=== PATIENT | female | born 1945 | race Caucasian/White ===

== ENCOUNTER → 2017-07-15 10:10 | Outpatient (CLI) | payer MEDICARE, SELFPAY ==
[2017-07-15 11:54] LABS: Absolute Lymphocyte Count 1.48 X10^3/ul (0.83-4.51); Basophil# 0.03 X10^3/uL; Basophil% 0.8 % (0-1); Eosinophil# 0.06 X10^3/uL; Eosinophils% 1.5 % (0-5); Hematocrit 43.7 % (37-47); Hemoglobin 13.4 g/dl (12.0-15.0); Lymphocyte # 1.48 X10^3/ul (4.0); Mean Corp Hgb Conc 30.7 g/gl (32-36); Mean Corpuscular Hgb 30.7 pg (27.0-32.0); Mean Platelet Vol. 10.4 fl (6.2-12.0); Monocyte# 0.29 X10^3/uL; Monocyte% 7.5 % (0-10); Neutrophil # 2.02 X10^3/uL (2.7-7.7); Neutrophil % 51.9 % (47-70); Platelet Count 241 K/mm3 (150-450); RBC Distribution Width CV 15.4 % (11.6-14.6); RBC Distribution Width SD 56.1 fl (35.1-43.9); Red Blood Count 4.37 M/mm3 (4.2-5.4); White Blood Count 3.9 K/mm3 (4.4-11.0)
[2017-07-15 11:57] LABS: POSITIVE COUNT NO; POSITIVE DIFFERENTIAL NO; POSITIVE MORPHOLOGY NO
[2017-07-15 12:16] LABS: ALB/GLOB Ratio 0.9 RATIO (0.9-2.4); AST(SGOT) 18 U/L (15-37); Alanine Aminotransfer ALT/SGPT 22 U/L (13-56); Albumin, Serum 3.2 g/dL (3.2-5.0); Alkaline Phosphatase 74 U/L (45-117); Anion Gap 7 (5-15); BUN 10 mg/dL (7-18); BUN/Creat Ratio 15.1 RATIO (10-20); Calcium,Total 8.1 mg/dL (8.5-10.1); Chloride 104 mmol/L (98-107); Creatinine, Serum 0.66 mg/dL (0.55-1.02); EST Glomerular Filtration Rate 94 mL/min (>60); Est Glom Filt Rate - Afr Amer 113 mL/min (>60); Globulin 3.5 g/dL (2.2-4.2); Glucose 76 mg/dL (74-106); Potassium 3.1 mmol/L (3.5-5.1); Protein, Total 6.7 g/dL (6.4-8.2); Sodium Level 142 mmol/L (136-145)
== END ==
PROVIDERS: Family Provider Family Medicine; PCP Family Medicine; Visit Provider Internal Medicine Rheumatology
DX: L40.59 Other psoriatic arthropathy (principal); L40.9 Psoriasis, unspecified; M16.0 Bilateral primary osteoarthritis of hip; M21.40 Flat foot [pes planus] (acquired), unspecified foot; M47.897 Other spondylosis, lumbosacral region; Z79.899 Other long term (current) drug therapy
CPT/HCPCS: 36415; 80053; 85025

== ENCOUNTER → 2017-10-09 12:43 | Outpatient (CLI) | payer MEDICARE, SELFPAY ==
[2017-10-09 14:25] LABS: Absolute Lymphocyte Count 1.15 X10^3/ul (0.83-4.51); Absolute Neutrophil Count 2.2 X10^3/uL (2.0-7.7); Basophil# 0.03 X10^3/uL; Basophil% 0.8 % (0-1); Eosinophil# 0.04 X10^3/uL; Eosinophils% 1.1 % (0-5); Hematocrit 43.7 % (37-47); Hemoglobin 13.8 g/dl (12.0-15.0); Lymphocyte # 1.15 X10^3/ul (4.0); Lymphocyte % 31.2 % (19-41); Mean Corp Hgb Conc 31.6 g/gl (32-36); Mean Corpuscular Hgb 30.8 pg (27.0-32.0); Mean Corpuscular Volume 97.5 fL (81-99); Mean Platelet Vol. 11.1 fl (6.2-12.0); Monocyte# 0.26 X10^3/uL; Neutrophil % 59.6 % (47-70); Platelet Count 248 K/mm3 (150-450); RBC Distribution Width CV 14.9 % (11.6-14.6); RBC Distribution Width SD 51.7 fl (35.1-43.9); Red Blood Count 4.48 M/mm3 (4.2-5.4); White Blood Count 3.7 K/mm3 (4.4-11.0)
[2017-10-09 14:30] LABS: POSITIVE COUNT NO; POSITIVE DIFFERENTIAL NO; POSITIVE MORPHOLOGY NO
[2017-10-09 14:43] LABS: ALB/GLOB Ratio 0.9 RATIO (0.9-2.4); AST(SGOT) 26 U/L (15-37); Alanine Aminotransfer ALT/SGPT 25 U/L (13-56); Albumin, Serum 3.5 g/dL (3.2-5.0); Alkaline Phosphatase 82 U/L (45-117); Anion Gap 9 (5-15); BUN 13 mg/dL (7-18); BUN/Creat Ratio 17.5 RATIO (10-20); Calcium,Total 8.4 mg/dL (8.5-10.1); Chloride 106 mmol/L (98-107); Creatinine, Serum 0.74 mg/dL (0.55-1.02); EST Glomerular Filtration Rate 82 mL/min (>60); Est Glom Filt Rate - Afr Amer 99 mL/min (>60); Globulin 3.8 g/dL (2.2-4.2); Glucose 122 mg/dL (74-106); Potassium 3.6 mmol/L (3.5-5.1); Protein, Total 7.3 g/dL (6.4-8.2); Sodium Level 143 mmol/L (136-145)
== END ==
PROVIDERS: Family Provider Family Medicine; PCP Family Medicine; Visit Provider Internal Medicine Rheumatology
DX: L40.59 Other psoriatic arthropathy (principal); L40.9 Psoriasis, unspecified; M16.0 Bilateral primary osteoarthritis of hip; M21.40 Flat foot [pes planus] (acquired), unspecified foot; M47.897 Other spondylosis, lumbosacral region; Z79.899 Other long term (current) drug therapy
CPT/HCPCS: 36415; 80053; 85025

== ENCOUNTER → 2017-11-18 10:27 | Outpatient (CLI) | payer MEDICARE, SELFPAY ==
[2017-11-18 12:20] LABS: BUN 16 mg/dL (7-18); Creatinine, Serum 0.86 mg/dL (0.55-1.02); EST Glomerular Filtration Rate 69 mL/min (>60); Est Glom Filt Rate - Afr Amer 83 mL/min (>60)
== END ==
PROVIDERS: Family Provider Family Medicine; PCP Family Medicine
DX: I60.7 Nontraumatic subarachnoid hemorrhage from unspecified intracranial artery (principal)
CPT/HCPCS: 36415; 82565; 84520

== ENCOUNTER → 2017-12-25 14:28 | Outpatient (CLI) | payer MEDICARE, SELFPAY ==
[2017-12-25 15:40] LABS: Absolute Lymphocyte Count 1.23 X10^3/ul (0.83-4.51); Absolute Neutrophil Count 2.1 X10^3/uL (2.0-7.7); Basophil# 0.03 X10^3/uL; Basophil% 0.8 % (0-1); Eosinophil# 0.04 X10^3/uL; Eosinophils% 1.1 % (0-5); Hematocrit 44.3 % (37-47); Hemoglobin 13.5 g/dl (12.0-15.0); Lymphocyte # 1.23 X10^3/ul (4.0); Lymphocyte % 33.3 % (19-41); Mean Corp Hgb Conc 30.5 g/gl (32-36); Mean Corpuscular Hgb 30.3 pg (27.0-32.0); Mean Corpuscular Volume 99.6 fL (81-99); Mean Platelet Vol. 10.7 fl (6.2-12.0); Monocyte# 0.31 X10^3/uL; Monocyte% 8.4 % (0-10); Neutrophil # 2.08 X10^3/uL (2.7-7.7); Neutrophil % 56.4 % (47-70); Platelet Count 245 K/mm3 (150-450); RBC Distribution Width CV 15.2 % (11.6-14.6); RBC Distribution Width SD 55.3 fl (35.1-43.9); Red Blood Count 4.45 M/mm3 (4.2-5.4); White Blood Count 3.7 K/mm3 (4.4-11.0)
[2017-12-25 15:47] LABS: POSITIVE COUNT NO; POSITIVE DIFFERENTIAL NO; POSITIVE MORPHOLOGY NO
[2017-12-25 15:48] LABS: AST(SGOT) 21 U/L (15-37); Alanine Aminotransfer ALT/SGPT 25 U/L (13-56); Albumin, Serum 3.4 g/dL (3.2-5.0); Alkaline Phosphatase 80 U/L (45-117); Anion Gap 8 (5-15); BUN 12 mg/dL (7-18); BUN/Creat Ratio 15.3 RATIO (10-20); Calcium,Total 8.8 mg/dL (8.5-10.1); Chloride 105 mmol/L (98-107); Creatinine, Serum 0.78 mg/dL (0.55-1.02); EST Glomerular Filtration Rate 77 mL/min (>60); Est Glom Filt Rate - Afr Amer 93 mL/min (>60); Globulin 3.5 g/dL (2.2-4.2); Glucose 102 mg/dL (74-106); Potassium 3.8 mmol/L (3.5-5.1); Protein, Total 6.9 g/dL (6.4-8.2); Sodium Level 144 mmol/L (136-145)
== END ==
PROVIDERS: Family Provider Family Medicine; PCP Family Medicine; Visit Provider Internal Medicine Rheumatology
DX: L40.59 Other psoriatic arthropathy (principal); Z79.899 Other long term (current) drug therapy; L40.9 Psoriasis, unspecified; M16.0 Bilateral primary osteoarthritis of hip; M21.40 Flat foot [pes planus] (acquired), unspecified foot; M47.897 Other spondylosis, lumbosacral region
CPT/HCPCS: 36415; 80053; 85025

== ENCOUNTER → 2018-03-24 14:00 | Outpatient (CLI) | payer MEDICARE, SELFPAY ==
[2018-03-24 15:49] LABS: Absolute Lymphocyte Count 1.27 X10^3/ul (0.83-4.51); Absolute Neutrophil Count 2.3 X10^3/uL (2.0-7.7); Basophil# 0.03 X10^3/uL; Basophil% 0.7 % (0-1); Eosinophil# 0.04 X10^3/uL; Hematocrit 44.4 % (37-47); Hemoglobin 13.8 g/dl (12.0-15.0); Lymphocyte # 1.27 X10^3/ul (4.0); Lymphocyte % 31.6 % (19-41); Mean Corp Hgb Conc 31.1 g/gl (32-36); Mean Corpuscular Hgb 30.8 pg (27.0-32.0); Mean Corpuscular Volume 99.1 fL (81-99); Mean Platelet Vol. 10.8 fl (6.2-12.0); Monocyte# 0.33 X10^3/uL; Monocyte% 8.2 % (0-10); Neutrophil # 2.34 X10^3/uL (2.7-7.7); Neutrophil % 58.3 % (47-70); Platelet Count 258 K/mm3 (150-450); RBC Distribution Width CV 14.8 % (11.6-14.6); RBC Distribution Width SD 53.1 fl (35.1-43.9); Red Blood Count 4.48 M/mm3 (4.2-5.4)
[2018-03-24 15:55] LABS: ALB/GLOB Ratio 0.9 RATIO (0.9-2.4); AST(SGOT) 19 U/L (15-37); Alanine Aminotransfer ALT/SGPT 24 U/L (13-56); Albumin, Serum 3.4 g/dL (3.2-5.0); Alkaline Phosphatase 90 U/L (45-117); Anion Gap 8 (5-15); BUN 14 mg/dL (7-18); BUN/Creat Ratio 17.7 RATIO (10-20); Calcium,Total 8.7 mg/dL (8.5-10.1); Chloride 104 mmol/L (98-107); Creatinine, Serum 0.79 mg/dL (0.55-1.02); EST Glomerular Filtration Rate 76 mL/min (>60); Est Glom Filt Rate - Afr Amer 92 mL/min (>60); Globulin 3.8 g/dL (2.2-4.2); Glucose 84 mg/dL (74-106); Potassium 3.6 mmol/L (3.5-5.1); Protein, Total 7.2 g/dL (6.4-8.2); Sodium Level 142 mmol/L (136-145)
[2018-03-24 16:16] LABS: POSITIVE COUNT NO; POSITIVE DIFFERENTIAL NO; POSITIVE MORPHOLOGY NO
== END ==
PROVIDERS: Family Provider Family Medicine; PCP Family Medicine; Referring Provider Internal Medicine Rheumatology; Visit Provider Internal Medicine Rheumatology
DX: L40.59 Other psoriatic arthropathy (principal); L40.9 Psoriasis, unspecified; M16.0 Bilateral primary osteoarthritis of hip; M21.40 Flat foot [pes planus] (acquired), unspecified foot; M47.897 Other spondylosis, lumbosacral region; Z79.899 Other long term (current) drug therapy
CPT/HCPCS: 36415; 80053; 85025

== ENCOUNTER → 2018-05-07 14:21 | Outpatient (CLI) | payer MEDICARE, SELFPAY ==
--- NOTE | 2018-05-07 14:26 | BI_ITS ---
MAMMOGRAPHY - BILATERAL SCREENING 3-D JINNY SYNTHESIS REASON FOR EXAM: Female, 72 years old. Bilateral Screening 3-D tomosynthesis PERTINENT HISTORY: History of benign left excisional biopsy over 10 years ago.. TECHNIQUE: 2-D mammograms and 3-D Jinny synthesis of the breast (s) were performed. CAD was performed. COMPARISON: March 22, 2016, March 09, 2015 FINDINGS: The breast composition is almost entirely fat. There are stable normal-appearing lymph nodes. Scattered benign calcifications are seen. No dense spiculated masses or suspicious microcalcifications are identified. No architectural distortion is identified. There is no skin thickening or retraction. There has been no significant change since the prior study. BI/SCREENING MAMM (CAD), BILAT IMPRESSION: No mammographic signs of malignancy. Routine yearly mammograms recommended. ASSESSMENT CATEGORY: BIRADS Category 2: Benign. A letter regarding these results will be sent to the patient by the facility within 30 days. FOLLOW UP RECOMMENDATION: Yearly follow up mammogram recommended. (A) Approximately 10% of breast cancers are not detected by mammography. A normal mammogram should not delay biopsy of a clinically suspicious abnormality. Electronically Signed: Shreyas Sousa MD at 10:53 EST , Service support ,
== END ==
PROVIDERS: Family Provider Family Medicine; PCP Family Medicine; Visit Provider Family Medicine
DX: Z12.31 Encounter for screening mammogram for malignant neoplasm of breast (principal)
CPT/HCPCS: 77063; 77067

== ENCOUNTER → 2018-06-23 13:22 | Outpatient (CLI) | payer MEDICARE, SELFPAY ==
[2018-06-23 15:58] LABS: Absolute Lymphocyte Count 1.13 X10^3/ul (0.83-4.51); Absolute Neutrophil Count 2.2 X10^3/uL (2.0-7.7); Basophil# 0.02 X10^3/uL; Basophil% 0.6 % (0-1); Eosinophil# 0.04 X10^3/uL; Eosinophils% 1.1 % (0-5); Hematocrit 43.4 % (37-47); Lymphocyte # 1.13 X10^3/ul (4.0); Lymphocyte % 31.3 % (19-41); Mean Corpuscular Hgb 30.2 pg (27.0-32.0); Mean Corpuscular Volume 100.9 fL (81-99); Monocyte# 0.27 X10^3/uL; Monocyte% 7.5 % (0-10); Neutrophil # 2.15 X10^3/uL (2.7-7.7); Neutrophil % 59.5 % (47-70); Platelet Count 251 K/mm3 (150-450); RBC Distribution Width CV 15.1 % (11.6-14.6); RBC Distribution Width SD 55.5 fl (35.1-43.9); White Blood Count 3.6 K/mm3 (4.4-11.0)
[2018-06-23 16:03] LABS: POSITIVE COUNT NO; POSITIVE DIFFERENTIAL NO; POSITIVE MORPHOLOGY NO
[2018-06-23 16:15] LABS: AST(SGOT) 16 U/L (15-37); Alanine Aminotransfer ALT/SGPT 25 U/L (13-56); Albumin, Serum 3.4 g/dL (3.2-5.0); Alkaline Phosphatase 86 U/L (45-117); Anion Gap 8 (5-15); BUN 16 mg/dL (7-18); BUN/Creat Ratio 21.5 RATIO (10-20); Calcium,Total 8.5 mg/dL (8.5-10.1); Chloride 106 mmol/L (98-107); Creatinine, Serum 0.74 mg/dL (0.55-1.02); EST Glomerular Filtration Rate 81 mL/min (>60); Est Glom Filt Rate - Afr Amer 98 mL/min (>60); Globulin 3.5 g/dL (2.2-4.2); Glucose 120 mg/dL (74-106); Potassium 3.7 mmol/L (3.5-5.1); Protein, Total 6.9 g/dL (6.4-8.2); Sodium Level 144 mmol/L (136-145)
== END ==
PROVIDERS: Family Provider Family Medicine; PCP Family Medicine; Referring Provider Internal Medicine Rheumatology; Visit Provider Internal Medicine Rheumatology
DX: L40.59 Other psoriatic arthropathy (principal); L40.9 Psoriasis, unspecified; M16.0 Bilateral primary osteoarthritis of hip; M21.40 Flat foot [pes planus] (acquired), unspecified foot; M47.897 Other spondylosis, lumbosacral region; Z79.899 Other long term (current) drug therapy
CPT/HCPCS: 36415; 80053; 85025

== ENCOUNTER → 2018-09-15 14:01 | Outpatient (CLI) | payer MEDICARE, SELFPAY ==
[2018-09-15 15:25] LABS: Absolute Lymphocyte Count 1.37 X10^3/ul (0.83-4.51); Absolute Neutrophil Count 2.3 X10^3/uL (2.0-7.7); Basophil# 0.03 X10^3/uL; Basophil% 0.7 % (0-1); Eosinophil# 0.05 X10^3/uL; Eosinophils% 1.2 % (0-5); Hematocrit 42.3 % (37-47); Hemoglobin 13.2 g/dl (12.0-15.0); Lymphocyte # 1.37 X10^3/ul (4.0); Mean Corp Hgb Conc 31.2 g/gl (32-36); Mean Corpuscular Hgb 30.2 pg (27.0-32.0); Mean Corpuscular Volume 96.8 fL (81-99); Mean Platelet Vol. 11.3 fl (6.2-12.0); Monocyte# 0.28 X10^3/uL; Monocyte% 6.9 % (0-10); Neutrophil % 57.2 % (47-70); POSITIVE COUNT NO; POSITIVE DIFFERENTIAL NO; POSITIVE MORPHOLOGY NO; Platelet Count 240 K/mm3 (150-450); RBC Distribution Width CV 14.7 % (11.6-14.6); RBC Distribution Width SD 49.8 fl (35.1-43.9); Red Blood Count 4.37 M/mm3 (4.2-5.4)
[2018-09-15 15:42] LABS: ALB/GLOB Ratio 0.9 RATIO (0.9-2.4); AST(SGOT) 18 U/L (15-37); Alanine Aminotransfer ALT/SGPT 19 U/L (13-56); Albumin, Serum 3.3 g/dL (3.2-5.0); Alkaline Phosphatase 97 U/L (45-117); Anion Gap 7 (5-15); BUN 9 mg/dL (7-18); BUN/Creat Ratio 11.9 RATIO (10-20); Calcium,Total 8.4 mg/dL (8.5-10.1); Chloride 107 mmol/L (98-107); Creatinine, Serum 0.76 mg/dL (0.55-1.02); EST Glomerular Filtration Rate 80 mL/min (>60); Est Glom Filt Rate - Afr Amer 96 mL/min (>60); Globulin 3.5 g/dL (2.2-4.2); Glucose 122 mg/dL (74-106); Potassium 3.6 mmol/L (3.5-5.1); Protein, Total 6.8 g/dL (6.4-8.2); Sodium Level 143 mmol/L (136-145)
== END ==
PROVIDERS: Family Provider Family Medicine; PCP Family Medicine; Referring Provider Internal Medicine Rheumatology; Visit Provider Internal Medicine Rheumatology
DX: L40.59 Other psoriatic arthropathy (principal); L40.9 Psoriasis, unspecified; M16.0 Bilateral primary osteoarthritis of hip; M21.40 Flat foot [pes planus] (acquired), unspecified foot; M47.897 Other spondylosis, lumbosacral region; Z79.899 Other long term (current) drug therapy
CPT/HCPCS: 36415; 80053; 85025

== ENCOUNTER → 2018-12-17 14:05 | Outpatient (CLI) | payer MEDICARE, SELFPAY ==
[2018-12-17 15:39] LABS: Absolute Lymphocyte Count 1.21 X10^3/uL (0.83-4.51); Absolute Neutrophil Count 2.2 X10^3/uL (2.0-7.7); Basophil# 0.04 X10^3/uL; Eosinophil# 0.04 X10^3/uL; Hematocrit 41.8 % (37-47); Hemoglobin 12.8 g/dL (12.0-15.0); Lymphocyte # 1.21 X10^3/ul (4.0); Lymphocyte % 31.7 % (19-41); Mean Corp Hgb Conc 30.6 g/dL (32-36); Mean Corpuscular Hgb 30.2 pg (27.0-32.0); Mean Corpuscular Volume 98.6 fL (81-99); Mean Platelet Vol. 10.8 fl (6.2-12.0); Monocyte# 0.31 X10^3/uL; Monocyte% 8.1 % (0-10); NRBC Flagged by Analyzer 0 % (0-5); Neutrophil # 2.21 X10^3/uL (2.7-7.7); Neutrophil % 57.9 % (47-70); Platelet Count 245 K/mm3 (150-450); RBC Distribution Width CV 15.9 % (11.6-14.6); RBC Distribution Width SD 57.7 fl (35.1-43.9); Red Blood Count 4.24 M/mm3 (4.2-5.4); White Blood Count 3.8 K/mm3 (4.4-11.0)
[2018-12-17 16:00] LABS: ALB/GLOB Ratio 0.9 RATIO (0.9-2.4); AST(SGOT) 17 U/L (15-37); Alanine Aminotransfer ALT/SGPT 22 U/L (13-56); Albumin, Serum 3.3 g/dL (3.2-5.0); Alkaline Phosphatase 90 U/L (45-117); Anion Gap 6 (5-15); BUN 12 mg/dL (7-18); BUN/Creat Ratio 16.6 RATIO (10-20); Calcium,Total 8.4 mg/dL (8.5-10.1); Chloride 107 mmol/L (98-107); Creatinine, Serum 0.72 mg/dL (0.55-1.02); EST Glomerular Filtration Rate 84 mL/min (>60); Est Glom Filt Rate - Afr Amer 101 mL/min (>60); Globulin 3.5 g/dL (2.2-4.2); Glucose 102 mg/dL (74-106); Protein, Total 6.8 g/dL (6.4-8.2); Sodium Level 143 mmol/L (136-145)
== END ==
PROVIDERS: Family Provider Family Medicine; PCP Family Medicine; Referring Provider Internal Medicine Rheumatology; Visit Provider Internal Medicine Rheumatology
DX: L40.59 Other psoriatic arthropathy (principal); L40.9 Psoriasis, unspecified; M16.0 Bilateral primary osteoarthritis of hip; M21.40 Flat foot [pes planus] (acquired), unspecified foot; M47.897 Other spondylosis, lumbosacral region; Z79.899 Other long term (current) drug therapy
CPT/HCPCS: 36415; 80053; 85025

== ENCOUNTER → 2019-03-16 14:25 | Outpatient (CLI) | payer MEDICARE, SELFPAY ==
[2019-03-16 15:11] LABS: Absolute Lymphocyte Count 1.37 X10^3/uL (0.83-4.51); Absolute Neutrophil Count 1.9 X10^3/uL (2.0-7.7); Basophil# 0.04 X10^3/uL; Basophil% 1.1 % (0-1); Eosinophil# 0.03 X10^3/uL; Eosinophils% 0.8 % (0-5); Hematocrit 44.3 % (37-47); Hemoglobin 13.5 g/dL (12.0-15.0); Lymphocyte # 1.37 X10^3/ul (4.0); Lymphocyte % 37.5 % (19-41); Mean Corp Hgb Conc 30.5 g/dL (32-36); Mean Corpuscular Hgb 29.7 pg (27.0-32.0); Mean Corpuscular Volume 97.6 fL (81-99); Mean Platelet Vol. 11.3 fl (6.2-12.0); Monocyte# 0.34 X10^3/uL; Monocyte% 9.3 % (0-10); NRBC Flagged by Analyzer 0 % (0-5); Neutrophil # 1.87 X10^3/uL (2.7-7.7); Neutrophil % 51.3 % (47-70); Platelet Count 228 K/mm3 (150-450); RBC Distribution Width CV 15.4 % (11.6-14.6); RBC Distribution Width SD 55.3 fl (35.1-43.9); Red Blood Count 4.54 M/mm3 (4.2-5.4); White Blood Count 3.7 K/mm3 (4.4-11.0)
[2019-03-16 15:39] LABS: ALB/GLOB Ratio 0.9 RATIO (0.9-2.4); AST(SGOT) 22 U/L (15-37); Alanine Aminotransfer ALT/SGPT 23 U/L (13-56); Albumin, Serum 3.4 g/dL (3.2-5.0); Alkaline Phosphatase 86 U/L (45-117); Anion Gap 4 (5-15); BUN 10 mg/dL (7-18); BUN/Creat Ratio 12.4 RATIO (10-20); Calcium,Total 8.5 mg/dL (8.5-10.1); Chloride 105 mmol/L (98-107); EST Glomerular Filtration Rate 74 mL/min (>60); Est Glom Filt Rate - Afr Amer 90 mL/min (>60); Globulin 3.7 g/dL (2.2-4.2); Glucose 91 mg/dL (74-106); Potassium 3.9 mmol/L (3.5-5.1); Protein, Total 7.1 g/dL (6.4-8.2); Sodium Level 141 mmol/L (136-145)
== END ==
PROVIDERS: Family Provider Family Medicine; PCP Family Medicine; Referring Provider Internal Medicine Rheumatology; Visit Provider Internal Medicine Rheumatology
DX: L40.59 Other psoriatic arthropathy (principal); Z79.899 Other long term (current) drug therapy; M16.0 Bilateral primary osteoarthritis of hip; M21.40 Flat foot [pes planus] (acquired), unspecified foot; M47.897 Other spondylosis, lumbosacral region
CPT/HCPCS: 36415; 80053; 85025

== ENCOUNTER → 2019-06-15 11:20 | Outpatient (CLI) | payer MEDICARE, SELFPAY ==
[2019-06-15 13:59] LABS: Absolute Lymphocyte Count 0.99 X10^3/uL (0.83-4.51); Absolute Neutrophil Count 1.9 X10^3/uL (2.0-7.7); Basophil# 0.04 X10^3/uL; Basophil% 1.2 % (0-1); Eosinophil# 0.05 X10^3/uL; Eosinophils% 1.5 % (0-5); Hematocrit 43.4 % (37-47); Hemoglobin 13.3 g/dL (12.0-15.0); Lymphocyte # 0.99 X10^3/ul (4.0); Lymphocyte % 29.6 % (19-41); Mean Corp Hgb Conc 30.6 g/dL (32-36); Mean Corpuscular Hgb 30.2 pg (27.0-32.0); Mean Corpuscular Volume 98.6 fL (81-99); Mean Platelet Vol. 11.1 fl (6.2-12.0); Monocyte# 0.31 X10^3/uL; Monocyte% 9.3 % (0-10); NRBC Flagged by Analyzer 0 % (0-5); Neutrophil # 1.94 X10^3/uL (2.7-7.7); Neutrophil % 58.1 % (47-70); Platelet Count 264 K/mm3 (150-450); RBC Distribution Width CV 14.9 % (11.6-14.6); RBC Distribution Width SD 54.4 fl (35.1-43.9); White Blood Count 3.3 K/mm3 (4.4-11.0)
[2019-06-15 14:16] LABS: AST(SGOT) 17 U/L (15-37); Alanine Aminotransfer ALT/SGPT 21 U/L (13-56); Albumin, Serum 3.5 g/dL (3.2-5.0); Alkaline Phosphatase 89 U/L (45-117); Anion Gap 5 (5-15); BUN 12 mg/dL (7-18); BUN/Creat Ratio 15.9 RATIO (10-20); Chloride 106 mmol/L (98-107); Creatinine, Serum 0.76 mg/dL (0.55-1.02); EST Glomerular Filtration Rate 80 mL/min (>60); Est Glom Filt Rate - Afr Amer 97 mL/min (>60); Globulin 3.6 g/dL (2.2-4.2); Glucose 79 mg/dL (74-106); Potassium 3.8 mmol/L (3.5-5.1); Protein, Total 7.1 g/dL (6.4-8.2); Sodium Level 142 mmol/L (136-145)
== END ==
PROVIDERS: PCP Family Medicine; Referring Provider Internal Medicine Rheumatology; Visit Provider Internal Medicine Rheumatology
DX: L40.59 Other psoriatic arthropathy (principal); L40.9 Psoriasis, unspecified; M16.0 Bilateral primary osteoarthritis of hip; M21.40 Flat foot [pes planus] (acquired), unspecified foot; M47.897 Other spondylosis, lumbosacral region; Z79.899 Other long term (current) drug therapy
CPT/HCPCS: 36415; 80053; 85025

== ENCOUNTER → 2019-08-31 10:28 | Outpatient (CLI) | payer MEDICARE, SELFPAY ==
[2019-08-31 12:03] LABS: Absolute Lymphocyte Count 1.13 X10^3/uL (0.83-4.51); Absolute Neutrophil Count 2.1 X10^3/uL (2.0-7.7); Basophil# 0.04 X10^3/uL; Basophil% 1.1 % (0-1); Eosinophil# 0.04 X10^3/uL; Eosinophils% 1.1 % (0-5); Hematocrit 42.8 % (37-47); Hemoglobin 13.2 g/dL (12.0-15.0); Lymphocyte # 1.13 X10^3/ul (4.0); Lymphocyte % 30.9 % (19-41); Mean Corp Hgb Conc 30.8 g/dL (32-36); Mean Corpuscular Hgb 30.1 pg (27.0-32.0); Mean Corpuscular Volume 97.7 fL (81-99); Mean Platelet Vol. 10.6 fl (6.2-12.0); Monocyte# 0.38 X10^3/uL; Monocyte% 10.4 % (0-10); NRBC Flagged by Analyzer 0 % (0-5); Neutrophil # 2.05 X10^3/uL (2.7-7.7); Platelet Count 262 K/mm3 (150-450); RBC Distribution Width CV 15.4 % (11.6-14.6); RBC Distribution Width SD 55.7 fl (35.1-43.9); Red Blood Count 4.38 M/mm3 (4.2-5.4); White Blood Count 3.7 K/mm3 (4.4-11.0)
[2019-08-31 12:24] LABS: AST(SGOT) 20 U/L (15-37); Alanine Aminotransfer ALT/SGPT 20 U/L (13-56); Albumin, Serum 3.5 g/dL (3.2-5.0); Alkaline Phosphatase 85 U/L (45-117); Anion Gap 5 (5-15); BUN 19 mg/dL (7-18); BUN/Creat Ratio 25.6 RATIO (10-20); Calcium,Total 8.8 mg/dL (8.5-10.1); Chloride 105 mmol/L (98-107); Creatinine, Serum 0.74 mg/dL (0.55-1.02); EST Glomerular Filtration Rate 81 mL/min (>60); Est Glom Filt Rate - Afr Amer 98 mL/min (>60); Globulin 3.6 g/dL (2.2-4.2); Glucose 82 mg/dL (74-106); Potassium 3.8 mmol/L (3.5-5.1); Protein, Total 7.1 g/dL (6.4-8.2); Sodium Level 141 mmol/L (136-145)
== END ==
PROVIDERS: PCP Family Medicine; Referring Provider Internal Medicine Rheumatology; Visit Provider Internal Medicine Rheumatology
DX: L40.59 Other psoriatic arthropathy (principal); L40.9 Psoriasis, unspecified; M16.0 Bilateral primary osteoarthritis of hip; M21.40 Flat foot [pes planus] (acquired), unspecified foot; M47.897 Other spondylosis, lumbosacral region; Z79.899 Other long term (current) drug therapy
CPT/HCPCS: 36415; 80053; 85025

== ENCOUNTER → 2020-01-28 10:27 | Outpatient (CLI) | payer MEDICARE, SELFPAY ==
[2020-01-28 12:17] LABS: Absolute Lymphocyte Count 1.15 X10^3/uL (0.83-4.51); Absolute Neutrophil Count 1.9 X10^3/uL (2.0-7.7); Basophil# 0.04 X10^3/uL; Basophil% 1.1 % (0-1); Eosinophil# 0.05 X10^3/uL; Eosinophils% 1.4 % (0-5); Hematocrit 41.9 % (37-47); Hemoglobin 12.8 g/dL (12.0-15.0); Lymphocyte # 1.15 X10^3/ul (4.0); Lymphocyte % 32.6 % (19-41); Mean Corp Hgb Conc 30.5 g/dL (32-36); Mean Corpuscular Hgb 29.8 pg (27.0-32.0); Mean Corpuscular Volume 97.7 fL (81-99); Mean Platelet Vol. 10.4 fl (6.2-12.0); Monocyte# 0.41 X10^3/uL; Monocyte% 11.6 % (0-10); NRBC Flagged by Analyzer 0 % (0-5); Neutrophil # 1.86 X10^3/uL (2.7-7.7); Neutrophil % 52.7 % (47-70); Platelet Count 268 K/mm3 (150-450); RBC Distribution Width CV 16.1 % (11.6-14.6); RBC Distribution Width SD 58.2 fl (35.1-43.9); Red Blood Count 4.29 M/mm3 (4.2-5.4); White Blood Count 3.5 K/mm3 (4.4-11.0)
[2020-01-28 12:36] LABS: ALB/GLOB Ratio 0.9 RATIO (0.9-2.4); AST(SGOT) 20 U/L (15-37); Alanine Aminotransfer ALT/SGPT 23 U/L (13-56); Albumin, Serum 3.3 g/dL (3.2-5.0); Alkaline Phosphatase 78 U/L (45-117); Anion Gap 4 (5-15); BUN 9 mg/dL (7-18); BUN/Creat Ratio 11.9 RATIO (10-20); Calcium,Total 8.7 mg/dL (8.5-10.1); Chloride 103 mmol/L (98-107); Creatinine, Serum 0.76 mg/dL (0.55-1.02); EST Glomerular Filtration Rate 79 mL/min (>60); Est Glom Filt Rate - Afr Amer 96 mL/min (>60); Globulin 3.6 g/dL (2.2-4.2); Glucose 84 mg/dL (74-106); Potassium 3.9 mmol/L (3.5-5.1); Protein, Total 6.9 g/dL (6.4-8.2); Sodium Level 139 mmol/L (136-145)
== END ==
PROVIDERS: PCP Family Medicine; Referring Provider Internal Medicine Rheumatology; Visit Provider Internal Medicine Rheumatology
DX: L40.59 Other psoriatic arthropathy (principal); L40.9 Psoriasis, unspecified; M16.0 Bilateral primary osteoarthritis of hip; M21.40 Flat foot [pes planus] (acquired), unspecified foot; M47.897 Other spondylosis, lumbosacral region; Z79.899 Other long term (current) drug therapy
CPT/HCPCS: 36415; 80053; 85025

== ENCOUNTER → 2020-05-15 11:15 | Outpatient (CLI) | payer MEDICARE, SELFPAY ==
[2020-05-15 12:52] LABS: Absolute Lymphocyte Count 0.98 X10^3/uL (0.83-4.51); Basophil# 0.03 X10^3/uL; Basophil% 0.9 % (0-1); Eosinophil# 0.02 X10^3/uL; Eosinophils% 0.6 % (0-5); Hematocrit 43.3 % (37-47); Lymphocyte # 0.98 X10^3/ul (4.0); Lymphocyte % 29.8 % (19-41); Mean Corpuscular Hgb 29.8 pg (27.0-32.0); Mean Corpuscular Volume 99.3 fL (81-99); Mean Platelet Vol. 10.5 fl (6.2-12.0); Monocyte# 0.28 X10^3/uL; Monocyte% 8.5 % (0-10); NRBC Flagged by Analyzer 0 % (0-5); Neutrophil # 1.97 X10^3/uL (2.7-7.7); Neutrophil % 59.9 % (47-70); Platelet Count 282 K/mm3 (150-450); RBC Distribution Width SD 55.8 fl (35.1-43.9); Red Blood Count 4.36 M/mm3 (4.2-5.4); White Blood Count 3.3 K/mm3 (4.4-11.0)
[2020-05-15 13:26] LABS: ALB/GLOB Ratio 0.9 RATIO (0.9-2.4); AST(SGOT) 17 U/L (15-37); Alanine Aminotransfer ALT/SGPT 22 U/L (13-56); Albumin, Serum 3.4 g/dL (3.2-5.0); Alkaline Phosphatase 95 U/L (45-117); Anion Gap 4 (5-15); BUN 9 mg/dL (7-18); BUN/Creat Ratio 12.9 RATIO (10-20); Calcium,Total 8.5 mg/dL (8.5-10.1); Chloride 106 mmol/L (98-107); EST Glomerular Filtration Rate 87 mL/min (>60); Est Glom Filt Rate - Afr Amer 105 mL/min (>60); Globulin 3.6 g/dL (2.2-4.2); Glucose 79 mg/dL (74-106); Sodium Level 142 mmol/L (136-145)
== END ==
PROVIDERS: PCP Family Medicine; Referring Provider Internal Medicine Rheumatology; Visit Provider Internal Medicine Rheumatology
DX: L40.59 Other psoriatic arthropathy (principal); L40.9 Psoriasis, unspecified; M16.0 Bilateral primary osteoarthritis of hip; M21.40 Flat foot [pes planus] (acquired), unspecified foot; M47.897 Other spondylosis, lumbosacral region; Z79.899 Other long term (current) drug therapy
CPT/HCPCS: 36415; 80053; 85025

== ENCOUNTER → 2020-07-25 13:21 | Outpatient (CLI) | payer MEDICARE, SELFPAY ==
--- NOTE | 2020-07-25 13:24 | BI_ITS ---
MAMMOGRAPHY - BILATERAL SCREENING REASON FOR EXAM: Female, 74 years old. Routine annual screening examination. PERTINENT HISTORY: Non-contributory. Remote left excisional breast biopsy. TECHNIQUE: Digital bilateral breast jinny (3D mammographic acquisition) in the CC and MLO projections. 2-D mediolateral oblique (MLO) and craniocaudad (CC) views of both breasts were obtained. CAD: Full Field Digital Mammography with Computer Added Detection was performed. COMPARISON: Comparison is made with prior study dated 05/07/2018 and 03/22/2016. FINDINGS: Breast Composition: There are scattered areas of fibroglandular density. There are no dominant masses or suspicious calcifications. Stable benign appearing bilateral axillary lymph nodes. No other significant abnormalities are identified. There has been no significant change since the prior study. BI/SCRN MAMM (CAD)W/JINNY BILAT IMPRESSION: Stable bilateral screening mammogram. Yearly follow-up mammogram recommended. (A) ASSESSMENT CATEGORY: BIRADS Category 2: Benign. A letter regarding these results will be sent to the patient by the facility within 30 days. Approximately 10% of breast cancers are not detected by mammography. A normal mammogram should not delay biopsy of a clinically suspicious abnormality. [id number] Electronically Signed: Anthony Mercer MD at 14:19 EDT , Service support ,
--- NOTE | 2020-07-25 13:27 | BD_ITS ---
STUDY: DUAL ENERGY X-RAY ABSORPTIOMETRY / DXA REASON FOR EXAM: Female, 74 years old. V76.12ScreeningBONE DENSITY REASON FOR EXAM. Postmenopausal. Loss of height. Prior right total hip replacement. TECHNIQUE: Bone Mineral Density (BMD) measurements of lumbar spine and left hip were obtained. COMPARISON: Comparison is made with prior study dated 04/02/2016. FINDINGS: Lumbar Spine (L1-L4): g/cm2 (1.488) / T-score (2.4) / Z-score (4.1) Findings are suggestive of normal bone density with a low fracture risk. Left Femur Total: g/cm2 (1.058) / T-score (0.4) / Z-score (2.1) Left Femoral Neck: g/cm2 (1.000) / T-score (-0.3) / Z-score (1.6) The T-Scores on the most recent prior examination were: Lumbar Spine (L1-L4): There has been worsening of bone density since the previous examination. Left Femur Total: which represents an improvement of 3.9%. BD/Dexa Bone Density Study IMPRESSION: The patient is considered normal as outlined below according to World [place] Organization (WHO) criteria with a low fracture risk. There has been improvement of bone density since the previous examination. Reference Information: The T-score is the number of standard deviations above or below the standard which is normal for young adults at their peak bone mineral density. The World Health Organization (WHO) interprets the T-scores as follows: Above -1 Normal bone density Between -1 and -2.5 Osteopenia Equal to / or below -2.5 Osteoporosis As a practical clinical guideline, osteopenia may be graded as follows: Mild -1 through -1.5 Moderate -1.6 through -2.0 Severe -2.1 through -2.4 The Z-score is the number of standard deviations above or below age-matched controls. A Z-score of less than -1.5 would be considered abnormal. References: 1. NIH Osteoporosis and Related Bone Diseases www osteo.org 2. International Society for Clinical Densitometry www iscd.org 3. National Osteoporosis Foundation www nof.org Electronically Signed: Anthony Mercer MD at 14:02 EDT , Service support ,
== END ==
PROVIDERS: PCP Family Medicine; Referring Provider Family Medicine; Visit Provider Family Medicine
DX: N95.9 Unspecified menopausal and perimenopausal disorder (principal); Z12.31 Encounter for screening mammogram for malignant neoplasm of breast
CPT/HCPCS: 77063; 77067; 77080

== ENCOUNTER → 2020-09-12 14:39 | Outpatient (CLI) | payer MEDICARE, SELFPAY ==
[2020-09-12 17:48] LABS: Absolute Lymphocyte Count 1.37 X10^3/uL (0.83-4.51); Absolute Neutrophil Count 2.5 X10^3/uL (2.0-7.7); Basophil# 0.05 X10^3/uL; Basophil% 1.2 % (0-1); Eosinophil# 0.03 X10^3/uL; Eosinophils% 0.7 % (0-5); Lymphocyte # 1.37 X10^3/ul (0.83-4.51); Lymphocyte % 32.1 % (19-41); Mean Corp Hgb Conc 29.5 g/dL (32-36); Mean Corpuscular Hgb 28.7 pg (27.0-32.0); Mean Corpuscular Volume 97.1 fL (81-99); Mean Platelet Vol. 10.8 fl (6.2-12.0); Monocyte# 0.34 X10^3/uL; NRBC Flagged by Analyzer 0 % (0-5); Neutrophil # 2.47 X10^3/uL (2.7-7.7); Neutrophil % 57.8 % (47-70); Platelet Count 296 K/mm3 (150-450); RBC Distribution Width CV 15.7 % (11.6-14.6); RBC Distribution Width SD 56.7 fl (35.1-43.9); Red Blood Count 4.53 M/mm3 (4.2-5.4); White Blood Count 4.3 K/mm3 (4.4-11.0)
[2020-09-12 17:59] LABS: ALB/GLOB Ratio 0.9 RATIO (0.9-2.4); AST(SGOT) 14 U/L (15-37); Alanine Aminotransfer ALT/SGPT 23 U/L (13-56); Albumin, Serum 3.4 g/dL (3.2-5.0); Alkaline Phosphatase 93 U/L (45-117); Anion Gap 4 (5-15); BUN 11 mg/dL (7-18); BUN/Creat Ratio 14.7 RATIO (10-20); Chloride 104 mmol/L (98-107); Creatinine, Serum 0.75 mg/dL (0.55-1.02); EST Glomerular Filtration Rate 81 mL/min (>60); Est Glom Filt Rate - Afr Amer 97 mL/min (>60); Globulin 3.8 g/dL (2.2-4.2); Glucose 87 mg/dL (74-106); Potassium 3.4 mmol/L (3.5-5.1); Protein, Total 7.2 g/dL (6.4-8.2); Sodium Level 139 mmol/L (136-145)
== END ==
PROVIDERS: PCP Family Medicine; Referring Provider Internal Medicine Rheumatology; Visit Provider Internal Medicine Rheumatology
DX: L40.59 Other psoriatic arthropathy (principal); L40.9 Psoriasis, unspecified; M16.0 Bilateral primary osteoarthritis of hip; M21.40 Flat foot [pes planus] (acquired), unspecified foot; M47.897 Other spondylosis, lumbosacral region; Z79.899 Other long term (current) drug therapy
CPT/HCPCS: 36415; 80053; 85025

== ENCOUNTER → 2020-11-27 14:24 | Outpatient (CLI) | payer MEDICARE, SELFPAY ==
[2020-11-27 17:45] LABS: Absolute Lymphocyte Count 1.39 X10^3/uL (0.83-4.51); Absolute Neutrophil Count 2.7 X10^3/uL (2.0-7.7); Basophil# 0.03 X10^3/uL; Basophil% 0.6 % (0-1); Eosinophil# 0.04 X10^3/uL; Eosinophils% 0.9 % (0-5); Hematocrit 43.6 % (37-47); Hemoglobin 13.2 g/dL (12.0-15.0); Lymphocyte # 1.39 X10^3/ul (0.83-4.51); Lymphocyte % 30.1 % (19-41); Mean Corp Hgb Conc 30.3 g/dL (32-36); Mean Corpuscular Hgb 29.7 pg (27.0-32.0); Mean Corpuscular Volume 98.2 fL (81-99); Mean Platelet Vol. 10.7 fl (6.2-12.0); Monocyte# 0.47 X10^3/uL; Monocyte% 10.2 % (0-10); NRBC Flagged by Analyzer 0 % (0-5); Neutrophil # 2.69 X10^3/uL (2.7-7.7); Neutrophil % 58.2 % (47-70); Platelet Count 342 K/mm3 (150-450); RBC Distribution Width CV 15.7 % (11.6-14.6); RBC Distribution Width SD 57.1 fl (35.1-43.9); Red Blood Count 4.44 M/mm3 (4.2-5.4); White Blood Count 4.6 K/mm3 (4.4-11.0)
[2020-11-27 18:35] LABS: ALB/GLOB Ratio 0.9 RATIO (0.9-2.4); AST(SGOT) 18 U/L (15-37); Alanine Aminotransfer ALT/SGPT 24 U/L (13-56); Albumin, Serum 3.5 g/dL (3.2-5.0); Alkaline Phosphatase 97 U/L (45-117); Anion Gap 7 (5-15); BUN 12 mg/dL (7-18); BUN/Creat Ratio 14.8 RATIO (10-20); Calcium,Total 8.6 mg/dL (8.5-10.1); Chloride 103 mmol/L (98-107); Creatinine, Serum 0.81 mg/dL (0.55-1.02); EST Glomerular Filtration Rate 73 mL/min (>60); Est Glom Filt Rate - Afr Amer 89 mL/min (>60); Globulin 3.9 g/dL (2.2-4.2); Glucose 84 mg/dL (74-106); Potassium 3.9 mmol/L (3.5-5.1); Protein, Total 7.4 g/dL (6.4-8.2); Sodium Level 141 mmol/L (136-145)
== END ==
PROVIDERS: PCP Family Medicine; Referring Provider Internal Medicine Rheumatology; Visit Provider Internal Medicine Rheumatology
DX: L40.59 Other psoriatic arthropathy (principal); L40.9 Psoriasis, unspecified; M16.0 Bilateral primary osteoarthritis of hip; M21.40 Flat foot [pes planus] (acquired), unspecified foot; M47.897 Other spondylosis, lumbosacral region; Z79.899 Other long term (current) drug therapy
CPT/HCPCS: 36415; 80053; 85025

== ENCOUNTER → 2021-03-28 10:49 | Outpatient (CLI) | payer MEDICARE, SELFPAY ==
[2021-03-28 12:46] LABS: Absolute Lymphocyte Count 1.48 X10^3/uL (0.83-4.51); Absolute Neutrophil Count 1.8 X10^3/uL (2.0-7.7); Basophil# 0.04 X10^3/uL; Basophil% 1.1 % (0-1); Eosinophil# 0.05 X10^3/uL; Eosinophils% 1.3 % (0-5); Hematocrit 43.3 % (37-47); Hemoglobin 13.2 g/dL (12.0-15.0); Lymphocyte # 1.48 X10^3/ul (0.83-4.51); Lymphocyte % 39.4 % (19-41); Mean Corp Hgb Conc 30.5 g/dL (32-36); Mean Corpuscular Hgb 29.8 pg (27.0-32.0); Mean Corpuscular Volume 97.7 fL (81-99); Mean Platelet Vol. 10.7 fl (6.2-12.0); Monocyte# 0.37 X10^3/uL; Monocyte% 9.8 % (0-10); NRBC Flagged by Analyzer 0 % (0-5); Neutrophil # 1.81 X10^3/uL (2.7-7.7); Neutrophil % 48.1 % (47-70); Platelet Count 318 K/mm3 (150-450); RBC Distribution Width CV 16.3 % (11.6-14.6); RBC Distribution Width SD 59.1 fl (35.1-43.9); Red Blood Count 4.43 M/mm3 (4.2-5.4); White Blood Count 3.8 K/mm3 (4.4-11.0)
[2021-03-28 13:15] LABS: ALB/GLOB Ratio 0.8 RATIO (0.9-2.4); AST(SGOT) 22 U/L (15-37); Alanine Aminotransfer ALT/SGPT 23 U/L (13-56); Albumin, Serum 3.2 g/dL (3.2-5.0); Alkaline Phosphatase 66 U/L (45-117); Anion Gap 4 (5-15); BUN 8 mg/dL (7-18); BUN/Creat Ratio 10.1 RATIO (10-20); Calcium,Total 8.8 mg/dL (8.5-10.1); Chloride 104 mmol/L (98-107); Creatinine, Serum 0.79 mg/dL (0.55-1.02); EST Glomerular Filtration Rate 76 mL/min (>60); Est Glom Filt Rate - Afr Amer 91 mL/min (>60); Globulin 3.9 g/dL (2.2-4.2); Glucose 71 mg/dL (74-106); Potassium 3.2 mmol/L (3.5-5.1); Protein, Total 7.1 g/dL (6.4-8.2); Sodium Level 140 mmol/L (136-145)
== END ==
PROVIDERS: PCP Family Medicine; Referring Provider Internal Medicine Rheumatology; Visit Provider Internal Medicine Rheumatology
DX: L40.59 Other psoriatic arthropathy (principal); L40.9 Psoriasis, unspecified; M16.0 Bilateral primary osteoarthritis of hip; M21.40 Flat foot [pes planus] (acquired), unspecified foot; M47.897 Other spondylosis, lumbosacral region; Z79.899 Other long term (current) drug therapy
CPT/HCPCS: 36415; 80053; 85025

== ENCOUNTER → 2021-06-11 | Outpatient (CLI) | payer MEDICARE, SELFPAY ==
[2021-06-11 15:45] LABS: BUN 12 mg/dL (7-18); Creatinine, Serum 0.74 mg/dL (0.55-1.02); EST Glomerular Filtration Rate 82 mL/min (>60); Est Glom Filt Rate - Afr Amer 99 mL/min (>60)
== END | disposition home or self-care (01) ==
LOC: MTLAB 13:04
PROVIDERS: PCP Family Medicine; Referring Provider Ophthalmology; Visit Provider Ophthalmology
DX: Z09 Encounter for follow-up examination after completed treatment for conditions other than malignant neoplasm (principal)
CPT/HCPCS: 36415; 82565; 84520

== ENCOUNTER 2021-06-15 14:26 | Outpatient (CLI) | payer MEDICARE, SELFPAY ==
--- NOTE | 2021-06-15 14:30 | CT_ITS ---
STUDY: CT BRAIN WITH AND WITHOUT CONTRAST REASON FOR EXAM: Female, 75 years old. VISUAL FIELD LOSS RADIATION DOSAGE (If Supplied By Facility): CTDIvol = ( 44.99 ) mGy, DLP = ( 1479.73 ) mGycm TECHNIQUE: Transaxial CT imaging of the brain was performed pre and post contrast administration. The examination was performed with intravenous administration of IV 100mL Isovue-370. Individualized dose optimization techniques were used for this CT. COMPARISON: Comparison is made with prior study dated 07/05/2015. FINDINGS: Normal soft tissue structures. Normal calvarium. Aneurysmal clip is seen in the right side of the rincon of [place]. There is mild cerebral atrophy with widening of the extra-axial spaces and ventricular dilatation. There is evidence of focal encephalomalacia in the base of the right frontal lobe at the site of the vascular clip. Normal basal ganglia and thalami. Normal brainstem. Normal cerebellum. There is no intracranial hemorrhage. There are no findings of an acute ischemic infarction. Normal visualized paranasal sinuses. CT/Brain/Head W/WO Contrast IMPRESSION: Chronic involutional changes of the brain. 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 There has been essentially no change since prior study. Electronically Signed: Anthony Mercer MD at 15:47 EST ,
--- NOTE | 2021-06-15 14:32 | CT_ITS ---
STUDY: CTA OF THE BRAIN REASON FOR EXAM: Female, 75 years old. VISUAL FIELD LOSS RADIATION DOSAGE (If Supplied By Facility): CTDIvol = ( 16.52 ) mGy, DLP = ( 381.33 ) mGycm TECHNIQUE: CT angiography was performed with a multi-detector CT scanner. Data acquisition was obtained from the skull base through the vertex following intravenous administration of IV 100mL Isovue-370. MIP images were reconstructed from the axial data set. Post-processing of the angiographic images was performed, with multiplanar reformation and 3D reconstruction. Individualized dose optimization techniques were used for this CT. COMPARISON: None. FINDINGS: Normal bilateral petrous carotid arteries. Normal right cavernous carotid artery with a normal supraclinoid bifurcation. Normal left cavernous carotid artery with a normal supraclinoid bifurcation. Normal right A1 segments of the anterior cerebral artery. Normal left A1 segments of the anterior cerebral artery. There is non-visualization of the anterior communicating artery (ACOM). Normal bilateral A2 segments of the anterior cerebral arteries. A vascular clip is seen in the region of the right anterior communicating artery. Normal right M1 and M2 segments of the middle cerebral arteries, with a normal M1 bifurcation. Normal left M1 and M2 segments of the middle cerebral arteries, with a normal M1 bifurcation. Normal right posterior communicating artery (PCOM). Normal left posterior communicating artery (PCOM). Normal bilateral vertebral arteries. Normal basilar artery with a normal basilar bifurcation. The visualized bilateral superior cerebellar (SCA) arteries are normal. Normal bilateral P1, P2 and visualized P3 segments of the posterior cerebral arteries. There is no demonstrated aneurysm of the seneca-cay[place] of [place]. CT/CTA Head W/WO Contrast IMPRESSION: Normal seneca-cayuga of [place] without a demonstrated aneurysm or hemodynamically significant stenosis. Vascular clip is seen at the level of the right anterior communicating artery. Electronically Signed: Anthony Mercer MD at 15:49 EST ,
== END 2021-06-15 23:59 | disposition home or self-care (01) ==
LOC: CT 14:27
PROVIDERS: PCP Family Medicine; Referring Provider Ophthalmology; Visit Provider Ophthalmology
DX: H53.461 Homonymous bilateral field defects, right side (principal)
CPT/HCPCS: 70470; 70496; Q9967

== ENCOUNTER 2021-07-02 12:58 | Outpatient (CLI) | payer MEDICARE, SELFPAY ==
[2021-07-02 15:23] LABS: Absolute Lymphocyte Count 0.92 X10^3/uL (0.83-4.51); Absolute Neutrophil Count 1.6 X10^3/uL (2.0-7.7); Basophil# 0.05 X10^3/uL; Basophil% 1.8 % (0-1); Eosinophil# 0.02 X10^3/uL; Eosinophils% 0.7 % (0-5); Hematocrit 44.5 % (37-47); Hemoglobin 13.9 g/dL (12.0-15.0); Lymphocyte # 0.92 X10^3/ul (0.83-4.51); Lymphocyte % 32.9 % (19-41); Mean Corp Hgb Conc 31.2 g/dL (32-36); Mean Corpuscular Hgb 30.5 pg (27.0-32.0); Mean Corpuscular Volume 97.6 fL (81-99); Mean Platelet Vol. 10.9 fl (6.2-12.0); Monocyte# 0.25 X10^3/uL; Monocyte% 8.9 % (0-10); NRBC Flagged by Analyzer 0 % (0-5); Neutrophil # 1.56 X10^3/uL (2.7-7.7); Neutrophil % 55.7 % (47-70); Platelet Count 304 K/mm3 (150-450); RBC Distribution Width SD 50.4 fl (35.1-43.9); Red Blood Count 4.56 M/mm3 (4.2-5.4); White Blood Count 2.8 K/mm3 (4.4-11.0)
[2021-07-02 15:51] LABS: ALB/GLOB Ratio 0.8 RATIO (0.9-2.4); AST(SGOT) 22 U/L (15-37); Alanine Aminotransfer ALT/SGPT 24 U/L (13-56); Albumin, Serum 3.4 g/dL (3.2-5.0); Alkaline Phosphatase 90 U/L (45-117); Anion Gap 6 (5-15); BUN 13 mg/dL (7-18); BUN/Creat Ratio 16.7 RATIO (10-20); Calcium,Total 9.1 mg/dL (8.5-10.1); Chloride 102 mmol/L (98-107); Creatinine, Serum 0.78 mg/dL (0.55-1.02); EST Glomerular Filtration Rate 77 mL/min (>60); Est Glom Filt Rate - Afr Amer 93 mL/min (>60); Globulin 4.1 g/dL (2.2-4.2); Glucose 140 mg/dL (74-106); Potassium 3.5 mmol/L (3.5-5.1); Protein, Total 7.5 g/dL (6.4-8.2); Sodium Level 139 mmol/L (136-145)
== END 2021-07-02 23:59 | disposition home or self-care (01) ==
LOC: MTLAB 13:00
PROVIDERS: PCP Family Medicine; Referring Provider Internal Medicine Rheumatology; Visit Provider Internal Medicine Rheumatology
DX: L40.59 Other psoriatic arthropathy (principal); L40.9 Psoriasis, unspecified; M16.0 Bilateral primary osteoarthritis of hip; M21.40 Flat foot [pes planus] (acquired), unspecified foot; M47.897 Other spondylosis, lumbosacral region; Z79.899 Other long term (current) drug therapy
CPT/HCPCS: 36415; 80053; 85025

== ENCOUNTER 2021-07-16 15:39 | Outpatient (CLI) | payer MEDICARE, SELFPAY ==
[2021-07-16 18:58] LABS: Cholesterol 193 mg/dL (200); High Density Lipoprotein 72 mg/dL; Triglycerides 68 mg/dL; Very Low Density Lipoprotein 14 mg/dL (5-40)
[2021-07-16 19:13] LABS: Vitamin D,25 Hydroxy 43.1 ng/mL
== END 2021-07-16 23:59 | disposition home or self-care (01) ==
LOC: MFPLAB 15:40
PROVIDERS: PCP Family Medicine; Visit Provider Family Medicine
DX: Z00.00 Encounter for general adult medical examination without abnormal findings (principal); E55.9 Vitamin D deficiency, unspecified; E66.9 Obesity, unspecified
CPT/HCPCS: 36415; 80061; 82306

== ENCOUNTER 2021-07-26 14:15 | Outpatient (CLI) | payer MEDICARE, SELFPAY ==
[2021-07-26 17:42] LABS: Absolute Lymphocyte Count 0.94 X10^3/uL (0.83-4.51); Absolute Neutrophil Count 1.9 X10^3/uL (2.0-7.7); Basophil# 0.04 X10^3/uL; Basophil% 1.2 % (0-1); Eosinophil# 0.04 X10^3/uL; Eosinophils% 1.2 % (0-5); Hematocrit 41.6 % (37-47); Hemoglobin 12.6 g/dL (12.0-15.0); Lymphocyte # 0.94 X10^3/ul (0.83-4.51); Lymphocyte % 28.1 % (19-41); Mean Corp Hgb Conc 30.3 g/dL (32-36); Mean Corpuscular Hgb 29.5 pg (27.0-32.0); Mean Corpuscular Volume 97.4 fL (81-99); Mean Platelet Vol. 10.8 fl (6.2-12.0); Monocyte# 0.39 X10^3/uL; Monocyte% 11.6 % (0-10); NRBC Flagged by Analyzer 0 % (0-5); Neutrophil # 1.93 X10^3/uL (2.7-7.7); Neutrophil % 57.6 % (47-70); Platelet Count 293 K/mm3 (150-450); RBC Distribution Width CV 14.5 % (11.6-14.6); RBC Distribution Width SD 51.9 fl (35.1-43.9); Red Blood Count 4.27 M/mm3 (4.2-5.4); White Blood Count 3.4 K/mm3 (4.4-11.0)
== END 2021-07-26 23:59 | disposition home or self-care (01) ==
LOC: MTLAB 14:17
PROVIDERS: PCP Family Medicine; Referring Provider Internal Medicine Rheumatology; Visit Provider Internal Medicine Rheumatology
DX: L40.59 Other psoriatic arthropathy (principal); L40.9 Psoriasis, unspecified; M16.0 Bilateral primary osteoarthritis of hip; M21.40 Flat foot [pes planus] (acquired), unspecified foot; M47.897 Other spondylosis, lumbosacral region; Z79.899 Other long term (current) drug therapy
CPT/HCPCS: 36415; 85025

== ENCOUNTER 2021-07-26 15:13 | Outpatient (CLI) | payer MEDICARE, SELFPAY ==
--- NOTE | 2021-07-26 15:15 | BI_ITS ---
MAMMOGRAPHY - BILATERAL SCREENING 3-D TOMOSYNTHESIS REASON FOR EXAM: Female, 75 years old. screening PERTINENT HISTORY: No significant family history. TECHNIQUE: 2-D mammograms and 3-D Tomosynthesis of the breast (s) were performed. CAD was performed. COMPARISON: 07/25/2020 FINDINGS: The breast composition is heterogeneously dense that can obscure small breast masses. Scattered benign calcifications are seen. No dense spiculated masses or suspicious microcalcifications are identified. No architectural distortion is identified. There is no skin thickening or retraction. There has been no significant change since the prior study. BI/SCRN MAMM (CAD)W/JINNY BILAT IMPRESSION: No mammographic signs of malignancy. Routine yearly mammograms recommended. ASSESSMENT CATEGORY: BIRADS Category 1: Negative. A letter regarding these results will be sent to the patient by the facility within 30 days. FOLLOW UP RECOMMENDATION: Yearly follow up mammogram recommended. (A) Approximately 10% of breast cancers are not detected by mammography. A normal mammogram should not delay biopsy of a clinically suspicious abnormality. Electronically Signed: Ivan Crawley MD at 16:06 EDT ,
== END 2021-07-26 23:59 | disposition home or self-care (01) ==
LOC: OPBI 15:14
PROVIDERS: PCP Family Medicine; Visit Provider Family Medicine
DX: Z12.31 Encounter for screening mammogram for malignant neoplasm of breast (principal); L40.59 Other psoriatic arthropathy; L40.9 Psoriasis, unspecified; M16.0 Bilateral primary osteoarthritis of hip; M47.897 Other spondylosis, lumbosacral region; Z79.899 Other long term (current) drug therapy
CPT/HCPCS: 36415; 77063; 77067; 85025

== ENCOUNTER 2021-08-09 17:32 | Outpatient (CLI) | payer MEDICARE, SELFPAY ==
--- NOTE | 2021-08-09 17:35 | CT_ITS ---
We are attempting to reach an attending provider to discuss findings. An addendum with communication details will be sent when the communication is complete. STUDY: CT ABDOMEN AND PELVIS WITH CONTRAST REASON FOR EXAM: Female, 75 years old. abd pain, rectal bleed -- oral and IV. RADIATION DOSAGE (If Supplied By Facility): CTDIvol = ( 22.25 ) mGy, DLP = ( 1629.54 ) mGycm TECHNIQUE: Transaxial images were obtained from the dome of the diaphragm to the symphysis pubis with oral contrast. Oral and amp; IV Readi-CAT and amp; 100mL Isovue-300 was administered. Sagittal and coronal images were reconstructed. 3.75 mm axial images, 2.5 mm coronal and sagittal reconstructions. Individualized dose optimization techniques were used for this CT. COMPARISON: None. Findings: LIMITATIONS: None. LOWER CHEST: Normal. LIVER: 2 cysts in the anterior liver. Small cyst in the subcapsular inferior right lobe of the liver. GALLBLADDER/BILE DUCTS: Normal. PANCREAS: Normal. SPLEEN: Normal. ADRENAL GLANDS: Normal. KIDNEYS/URETERS/BLADDER: [Mildly thick-walled appearing urinary bladder but it is minimally distended normal renal enhancement and size. RETROPERITONEUM/AORTA: Surgical clips around the aorta, presumably lymph node resection. Retroperitoneal lymph nodes are noted including 7 mm short axis aortocaval node and smaller left periaortic nodes. Hypodense elongated mass denser than expected for cyst measuring 4.4 cm x 2 cm x 2.7 cm adjacent to the left pelvic sidewall, not obviously ovary, possibly bulky adenopathy. BOWEL/MESENTERY: Oral contrast reached most distal small bowel loops, did not reach the terminal ileum or cecum. Moderate stool throughout the proximal half of the colon, mild gas in much of the distal colon and rectum. There is thick-walled appearance of the rectum and anus with enhancing-appearing or hyperdense nodular focus along the anterior anal wall, this may be a calcific density, measuring 1.1 cm, or a focus of active bleeding, best seen on axial image #109,-110. Mild perirectal adenopathy in the left perirectal fat, at least 2 small lymph nodes of 8 mm maximum short axis. Moderate diverticulosis of collapsed segment of proximal to mid sigmoid colon and mild pericolonic adenopathy superior to the proximal to mid sigmoid including 9 mm short axis and multiple mildly smaller nodes. APPENDIX: Not identified. No pericecal inflammation. PERITONEUM: Normal. REPRODUCTIVE ORGANS: Hysterectomy. BONES/SOFT TISSUES: Unilateral left L5 pars defect, hypertrophic changes at L5-S1 facet joints, slight anterolisthesis of L4 with respect to L5. Moderate disc space narrowing at L1-2 and L2-3 and disc space narrowing at lower thoracic levels. There is at least mild spinal stenosis at L4/5, AP diameter 1 cm, transverse diameter 8 mm due to the hypertrophic facet joint findings. Right hip prosthesis. OTHER: None. CT/Abdomen/Pelvis WITH Contrast IMPRESSION: Thick-walled appearance of sigmoid and rectum. Moderate sigmoid diverticulosis. Hyperdense nodular focus or small focus of intense enhancement at the anterior wall of the collapsed and thick-walled lower rectum-rectoanal junction may be a focus of active bleeding. Neoplasm screening of at least the rectosigmoid is recommended if not recently performed. Mild perisigmoidal and perirectal adenopathy. Indeterminate elongated hypodense mass along the left pelvic sidewall, possibly complex cyst or bulky hypodense adenopathy. Suspicion of underlying rectal neoplasm versus proctitis and distal colitis. The distal pericolonic adenopathy may be reactive or neoplastic. Postoperative changes of the retroperitoneum with subcentimeter retroperitoneal lymph nodes. The anus and perineum are not fully included. Thick-walled appearance of tissues between thick-walled appearing vaginal-bulbar region and thickened rectum, not fully included. Moderate stool in most of the proximal half the colon. Hysterectomy. Nonvisualized appendix. Hepatic cysts. Degenerative spine changes. Right hip prosthesis. Electronically Signed: Nina Jarrell MD at 22:39 EDT ,
[2021-08-09 17:55] LABS: CREATININE FINGERSTICK 0.8 mg/dL (0.55-1.02); EGFR FINGERSTICK > 60.0000 mL/min (>60)
== END 2021-08-09 23:59 | disposition home or self-care (01) ==
LOC: CT 17:32
PROVIDERS: PCP Family Medicine; Visit Provider Nurse Practitioner Adult Health
DX: R10.9 Unspecified abdominal pain (principal); K62.5 Hemorrhage of anus and rectum
CPT/HCPCS: 74177; Q9967

== ENCOUNTER 2021-08-21 05:19 | Day surgery (SDC) | payer MEDICARE, SELFPAY ==
[2021-08-13 18:08] LABS: LDH 192 U/L (84-246)
[2021-08-15 09:35] LABS: Cancer Antigen 125 17.4 U/mL (0.0-38.1); Carcinoembryonic Antigen 7.1 ng/mL (0.0-4.7)
--- NOTE | 2021-08-21 | IMM_PTH ---
PATIENT: ANNE DUARTE LOC: EN U#:[id number] AGE/SX: 75/F ROOM: RE08/21/[address]: Dr. Stephen Carrizales DO : 1945 BED: DIS: 08/21/2021 SPEC #: [id number] RECD: 08/22/21 13:01 STATUS: HARSHAL BUSHRA #: [id number] GAUDENCIO: 08/21/21 00:[address]: Stephen Carrizales DEPT: IMMUNOHISTOCHEMISTRY RECD BY: Daphne Hanson ENTERED: 08/22/21 13:02 SP TYPE: IMMUNO OTHR DR: Dr. Kristina Richard MD Tissues: F - Sigmoid colon biopsy Procedures: CD138 (add) CD20 (add) CD45 (add) CD5 (add) CD79A (add) CD3 (initial) PHYSICIAN & INSTITUTION [facility] [id number] SPECIMEN INFORMATION: Tissue Source: F ? Sigmoid polyp biopsy Clinical Info: Rectal bleed, abdominal pain Specimen Number: [id number] CPT code: 68782, 82373 x5 METHODOLOGY: Deparaffinized sections of prefer/formalin-fixed tissue or PAP/DQ stained slides are incubated with monoclonal/polyclonal antibodies/oligonucleotide probes. Localization is made via biotin free immunoperoxidase method. Appropriate controls are performed and reacted as expected. Results on target cell population are indicated in the following table: RESULTS: ANTIBODY / CLONE RESULT Block F CD3 (PS1) positive CD5 (SP10) positive CD20 (L26) positive CD45 (RP2/18) positive CD79a (11E3) positive CD138 (B-A38) positive These tests were developed and their performance characteristics determined by Laboratory. They may not have been cleared or approved by the U.S. Food and Drug Administration. The FDA has determined that such clearance or approval is not necessary. The above immunohistochemical/dualISH markers are ordered and reviewed by the Pathologist. INTERPRETATION: F. Sigmoid polyp, biopsy: Consistent with polytypic lymphoid aggregate. AM:starr 08/23/2021
[2021-08-21 06:01] VITALS: BP 138/88; PULSE 92; RESP 16; TEMP 37; O2SAT 96; BMI 35.4
[2021-08-21] MEDS: Lactated Ringers 1,000 ML 15 ML IV (06:04)
--- NOTE | 2021-08-21 06:30 | EGD_PTH ---
PATIENT: ANNE DUARTE LOC: EN U#:[id number] AGE/SX: 75/F ROOM: RE08/21/[address]: Dr. Stephen Carrizales DO : 1945 BED: DIS: 08/21/2021 SPEC #: [id number] RECD: 08/21/21 13:31 STATUS: HARSHAL BUSHRA #: [id number] GAUDENCIO: 08/21/21 06:[address]: Stephen Carrizales DEPT: SURGICAL PATHOLOGY RECD BY: Libertad Kelsey ENTERED: 08/21/21 13:49 SP TYPE: EGD BIOPSY ELBA DR: Dr. Kristina Richard MD Tissues: A - Esophagus, NOS B - Cecum, NOS C - Ileum, NOS D - COLON BIOPSY E - Sigmoid colon biopsy F - Sigmoid colon biopsy G - Rectum, NOS H - Rectum, NOS Procedures: Surgery Specimen Level IV HEADER OPERATION: Colonoscopy, polypectomy, biopsy, EGD, polypectomy ([facility] [place]) PRE-OP DIAGNOSIS: Rectal bleed, abdominal pain TISSUE SUBMITTED: A ? Distal esophagus biopsy, B ? Cecal polyp, C ? Terminal ileum biopsy, D ? Hepatic flexure polyp biopsy, E ? Sigmoid colitis biopsy, F - Sigmoid polyp biopsy, G ? Rectosigmoid biopsy, H ? Rectum biopsy MICROSCOPIC DIAGNOSIS A. Distal esophagus, biopsy: Gastroesophageal junctional mucosa with mild chronic inflammation. No evidence of goblet cell metaplasia. See comment. B. Cecal polyp, biopsy: Fragments of tubular adenoma. C. Terminal ileum, biopsy: No pathologic change. D. Colonic polyp at hepatic flexure, biopsy: Fragments of hyperplastic polyp. E. Sigmoid colon, biopsy: Focal acute colitis. Recent mucosal hemorrhage. See comment. F. Sigmoid colon, biopsy: Polypoid fragment of colonic mucosa with prominent polytypic lymphoid aggregate and mild glandular distortion. Rare neutrophils are seen in glandular epithelium. See comment. G. Rectosigmoid colon, biopsy: Chronic active colitis with mild to moderate activity. See comment. H. Rectum, biopsy: Chronic active colitis with mild to moderate activity. AM:starr 08/22/2021 COMMENT A. Alcian blue/PAS stain with matched control supports the above diagnosis. E. Rare cryptitis is identified. Clinical correlation is suggested. F. Immunohistochemistry ([id number]) supports the above diagnosis. G. Sections show expansion of lamina propria by inflammatory cells, cryptitis and crypt abscesses. There is no evidence of dysplasia. Clinical correlation is suggested. MICROSCOPIC DESCRIPTION Slides are reviewed. GROSS DESCRIPTION A - Received in fixative is one container labeled with the patient's name and designated distal esophagus. The specimen consists of two irregular fragments of light yip soft tissue that in aggregate measure 0.5 x 0.5 x 0.1 cm. The specimen is totally submitted in one cassette. B - Received in fixative is one container labeled with the patient's name and designated cecal polyp. The specimen consists of multiple irregular fragments of light yip soft tissue that in aggregate measure 1 x 0.5 x 0.1 cm. The specimen is totally submitted in one cassette. C - Received in fixative is one container labeled with the patient's name and designated terminal ileum. The specimen consists of one irregular fragment of light yip soft tissue that measures 0.5 x 0.5 x 0.1 cm. The specimen is totally submitted in one cassette. D - Received in fixative is one container labeled with the patient's name and designated hepatic flexure polyp biopsy. The specimen consists of two irregular fragments of light yip soft tissue that in aggregate measure 1 x 0.6 x 0.1 cm. The specimen is totally submitted in one cassette. E - Received in fixative is one container labeled with the patient's name and designated sigmoid colon biopsy. The specimen consists of two irregular fragments of light yip soft tissue that in aggregate measure 1 x 0.2 x 0.1 cm. The specimen is totally submitted in one cassette. F - Received in fixative is one container labeled with the patient's name and designated sigmoid polyp biopsy. The specimen consists of one irregular fragment of light yip soft tissue that measures 0.5 x 0.5 x 0.1 cm. The specimen is totally submitted in one cassette. G - Received in fixative is one container labeled with the patient's name and designated rectosigmoid biopsy. The specimen consists of two irregular fragments of light yip soft tissue that in aggregate measure 0.6 x 0.6 x 0.1 cm. The specimen is totally submitted in one cassette. H - Received in fixative is one container labeled with the patient's name and designated rectum biopsy. The specimen consists of multiple irregular fragments of light yip soft tissue that in aggregate measure 0.6 x 0.3 x 0.1 cm. The specimen is totally submitted in one cassette. / AM:starr 08/21/2021 TC:2 CPT: 66370 x8, [id number]
--- NOTE | 2021-08-21 06:30 | PCM.HP.BLA ---
History and Physical Date of Admission: 08/21/21 75 F who presents to the office today for blood in the stool, started end of June, no prior hx. Not daily, but most days she has bright red blood on toilet paper when she wipes after BM. Sees blood clots on the toilet paper. Has mucus in the stool which is also new, started after the blood per rectum started. Sometimes has some fecal seepage, mostly the mucus, no prior history. Can get pain in lower abd before BM, resolves with BM. The pain makes her sweat. No urgency. No tenesmus. Has had diarrhea this month but that resolved spontaneously. Bowels are formed again. Good appetite. Weight is stable. Feeling fine in general. 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 Takes omeprazole 40 mg daily for heartburn, gets reflux if she misses a dose. No dysphagia. Remote hx hemorrhoidectomy No prior colonoscopy ROS Const Constitutional: Positive for headache(s); No fatigue, fever(s), weight change, sleep problems, abnormal sleep pattern or change in appetite ENT ENT: Positive for headache(s); No difficulty swallowing, hoarseness or sore throat Resp Respiratory: No cough, hemoptysis or shortness of breath Cardio Cardiology: No chest pain at rest or generalized swelling Gastro GI: Positive for bloating, heartburn and Blood in stool; No abdominal pain, belching, change in bowel habits, change in stool character, coffee ground emesis, constipation, cramping, diarrhea, difficulty swallowing, feeling full early, excessive flatus, incontinent of stools, Vomiting blood/hematemesis, loose stools, Black,tarry stools, nausea/dyspepsia, pain with swallowing or vomiting Musc Musculoskeletal: Positive for back pain, Arthritis and restless legs; No joint pain, joint swelling, numbness or tingling Skin Skin: No itchy eyes or rash Neuro Neurology: Positive for headache(s) and restless legs; No behavioral changes, confusion, numbness or tingling Psych Psychiatric: No abnormal sleep pattern, No anxiety, No behavioral changes, No change in appetite, No confusion and No depression Endo Endocrine: No cold intolerance, fatigue, heat intolerance, increased thirst/drinking or weight change Aller/Imm Allergy/Immunologic: No food intolerance or itchy eyes Vance/Lymp Hematologic/Lymphatic: No easy bleeding, easy bruising or enlarged lymph nodes Exam Const General: cooperative, healthy appearing, comfortable, no acute distress, well developed and well groomed Eyes Sclera: sclerae normal Cornea: corneas normal GI Inspection: normal to inspection Palpation: soft Neuro Gait: antalgic Quality Reporting Tobacco Screening ([facility] 138) Smoking Status: Never smoker Assessment and Plan Assessment and Plan (1) Rectal bleed: Status: Acute (2) Abdominal pain: Status: Acute Orders: Orders: Abdomen/Pelvis WITH Contrast Today K62.5, R10.9 Plan - Nisa Frederick [employer]ER[employer] ARRANGEMENT COUNSELOR, FUNERAL PRE ARRANGEMENT COUNSELOR-C: 75-year-old female with a recent onset of bright red blood per rectum with clots, mucus per rectum with intermittent fecal seepage, lower abdominal pain prior to BM. She briefly had diarrhea last week but that resolved spontaneously. Her stool was Hemoccult positive at primary care office. She has never had a colonoscopy. This could be ischemic colitis but she of course needs evaluation for rectal mass. She has a history of GERD which she manages with omeprazole 40 mg daily. Plan is for EGD and colonoscopy. In the meantime we will also get CT abdomen and pelvis with oral and IV contrast. Follow-up 2 weeks after endoscopy. I have re-examined the patient. There are no clinical changes since date of exam.
--- NOTE | 2021-08-21 07:14 | OP.EGD_ITS ---
Patient Name: Katina Ortiz Procedure Date: 08/21/2021 6:10 AM Date of : 1945 Age: 75 Procedure: Upper GI endoscopy Indications: Iron deficiency anemia, Hematochezia Providers: Stephen Carrizales DO Referring MD: Kristina Richard Medicines: Sedation Required Anesthesia Staff Assistance Patient Profile: This is a 75 year old female. Refer to note in patient chart for documentation of history and physical. Patient has symptoms. Complications: No immediate complications. Procedure: Pre-Anesthesia Assessment: - Prior to the procedure, a History and Physical was performed, and patient medications and allergies were reviewed. The risks and benefits of the procedure and the sedation options and risks were discussed with the patient. All questions were answered and informed consent was obtained. Patient identification and proposed procedure were verified by the physician. Mental Status Examination: alert and oriented. Airway Examination: normal oropharyngeal airway and neck mobility. Respiratory Examination: clear to auscultation. CV Examination: normal. Prophylactic Antibiotics: The patient does not require prophylactic antibiotics. Prior Anticoagulants: The patient has taken no previous anticoagulant or antiplatelet agents. After reviewing the risks and benefits, the patient was deemed in satisfactory condition to undergo the procedure. The anesthesia plan was to use minimal sedation / analgesia (anxiolysis). Immediately prior to administration of medications, the patient was re-assessed for adequacy to receive sedatives. The heart rate, respiratory rate, oxygen saturations, blood pressure, adequacy of pulmonary ventilation, and response to care were monitored throughout the procedure. The physical status of the patient was re-assessed after the procedure. After obtaining informed consent, the endoscope was passed under direct vision. Throughout the procedure, the patient's blood pressure, pulse, and oxygen saturations were monitored continuously. The Colonoscope was introduced through the mouth, and advanced to the second part of duodenum. The upper GI endoscopy was accomplished without difficulty. The patient tolerated the procedure well. Moderate Sedation: Moderate (conscious) sedation was administered by the endoscopy nurse and supervised by the endoscopist. The patient's oxygen saturation, heart rate, blood pressure and response to care were monitored. Total physician intraservice time was 15 minutes. Scope In: 6:36:47 AM Scope Out: 6:43:32 AM Total Procedure Duration Time 0 hours 6 minutes 45 seconds Findings: LA Grade A (one or more mucosal breaks less than 5 mm, not extending between tops of 2 mucosal folds) esophagitis with no bleeding was found 37 to 39 cm from the incisors. Biopsies were taken with a cold forceps for histology. Verification of patient identification for the specimen was done. Estimated blood loss was minimal. Two 5 mm stigmata of recent bleeding angiodysplastic lesions were found on the greater curvature of the stomach. Coagulation for hemostasis using argon beam at 0.3 liters/minute and 20 sams was successful. Estimated blood loss was minimal. There also was a medium-sized hiatal hernia seen. The second portion of the duodenum was normal. Impression: - LA Grade A reflux esophagitis. Biopsied. 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 Treated with argon beam coagulation. Medium size hiatal hernia. - Normal second portion of the duodenum. Recommendation: - Discharge patient to home. - Resume previous diet. - Continue present medications. - Await pathology results. Procedure Code(s): --- Professional --- 02606, 59, Esophagogastroduodenoscopy, flexible, transoral; with control of bleeding, any method 09119, Esophagogastroduodenoscopy, flexible, transoral; with biopsy, single or multiple G0500, Moderate sedation services provided by the same physician or other qualified health home care companion performing a gastrointestinal endoscopic service that sedation supports, requiring the presence of an independent trained observer to assist in the monitoring of the patient's level of consciousness and physiological status; initial 15 minutes of intra-service time; patient age 5 years or older (additional time may be reported with 20208, as appropriate) CPT copyright 2017 [employer]. All rights reserved. The codes documented in this report are preliminary and upon licensed nuclear control room operator review may be revised to meet current compliance requirements. Stephen Carrizales DO 08/21/2021 7:14:18 AM This report has been signed electronically. Number of Addenda: 1 Note Initiated On: 08/21/2021 6:10 AM Addendum Number: 1 Addendum Date: 02/07/2022 6:39:20 AM MAC was used as sedation for this procedure. Stephen Carrizales DO 02/07/2022 6:39:26 AM This report has been signed electronically.
[2021-08-21 07:15] VITALS: BP 132/80; BP 138/88; PULSE 85; RESP 18; TEMP 36; O2SAT 100
--- NOTE | 2021-08-21 07:15 | OP.CCLET_ITS ---
02/07/2022 Kristina Richard [address] [place] [address] Re : Upper GI endoscopy procedure for Katina Ortiz Dear Dr. Richard This procedure was performed on Saturday, August 21, 2021. My impressions and recommendations are as follows: Impressions : - LA Grade A reflux esophagitis. Biopsied. 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 Treated with argon beam coagulation. Medium size hiatal hernia. - Normal second portion of the duodenum. Recommendations : - Discharge patient to home. - Resume previous diet. - Continue present medications. - Await pathology results. My findings are described in the full procedure note, which is enclosed. If I can be of further assistance, please feel free to contact me at . Sincerely, Stephen Carrizales, 08/21/2021 7:14:18 AM This report has been signed electronically.
[2021-08-21 07:20] VITALS: BP 122/90; BP 138/88; PULSE 78; RESP 18; O2SAT 100
--- NOTE | 2021-08-21 07:21 | OP.COLON_ITS ---
Patient Name: Katina Ortiz Procedure Date: 08/21/2021 6:43 AM Date of : 1945 Age: 75 Procedure: Colonoscopy Indications: Hematochezia Providers: Stephen Carrizales DO Referring MD: Kristina Richard Medicines: Sedation Required Anesthesia Staff Assistance Patient Profile: This is a 75 year old female. Refer to note in patient chart for documentation of history and physical. Patient has symptoms. Last Colonoscopy: 5 years ago. Complications: No immediate complications. Procedure: Pre-Anesthesia Assessment: - Prior to the procedure, a History and Physical was performed, and patient medications and allergies were reviewed. The risks and benefits of the procedure and the sedation options and risks were discussed with the patient. All questions were answered and informed consent was obtained. Patient identification and proposed procedure were verified by the physician. Mental Status Examination: alert and oriented. Airway Examination: normal oropharyngeal airway and neck mobility. Respiratory Examination: clear to auscultation. CV Examination: normal. Prophylactic Antibiotics: The patient does not require prophylactic antibiotics. Prior Anticoagulants: The patient has taken no previous anticoagulant or antiplatelet agents. After reviewing the risks and benefits, the patient was deemed in satisfactory condition to undergo the procedure. The anesthesia plan was to use minimal sedation / analgesia (anxiolysis). Immediately prior to administration of medications, the patient was re-assessed for adequacy to receive sedatives. The heart rate, respiratory rate, oxygen saturations, blood pressure, adequacy of pulmonary ventilation, and response to care were monitored throughout the procedure. The physical status of the patient was re-assessed after the procedure. After I obtained informed consent, the scope was passed under direct vision. Throughout the procedure, the patient's blood pressure, pulse, and oxygen saturations were monitored continuously. The Colonoscope was introduced through the anus and advanced to the terminal ileum. The colonoscopy was performed without difficulty. The patient tolerated the procedure well. The quality of the bowel preparation was fair. Moderate Sedation: Moderate (conscious) sedation was personally administered by an anesthesia professional. The following parameters were monitored: oxygen saturation, heart rate, blood pressure, respiratory rate, EKG, adequacy of pulmonary ventilation, and response to care. Total physician intraservice time was 15 minutes. Scope In: 6:46:39 AM Scope Withdrawal Time 0 hours 16 minutes 54 seconds Scope Out: 7:08:28 AM Total Procedure Duration Time 0 hours 21 minutes 49 seconds Findings: Hemorrhoids were found on perianal exam. A 5 mm polyp was found in the sigmoid colon hepatic flexure cecum. The polyp was sessile. Polypectomy was attempted, initially using a hot snare. Polyp resection was incomplete with this device. This intervention then required a different device and polypectomy technique. The polyp was removed with a hot snare. Resection and retrieval were complete. Multiple small and large-mouthed diverticula were found in the recto-sigmoid colon, sigmoid colon and descending colon. There was no evidence of diverticular bleeding. Patchy mild inflammation characterized by congestion (edema), erythema, friability and granularity was found in the rectum, in the recto-sigmoid colon, in the sigmoid colon and in the descending colon. Biopsies were taken with a cold forceps for histology. Verification of patient identification for the specimen was done. Estimated blood loss was minimal. A patchy area of the terminal ileum was congested. Biopsies were taken with a cold forceps for histology. Impression: - Preparation of the colon was fair. - Hemorrhoids found on perianal exam. - No specimens collected. Recommendation: - Discharge patient to home. - Resume previous diet. - Continue present medications. - Await pathology results. - Repeat colonoscopy in 1 year for surveillance based on pathology results. Procedure Code(s): --- Professional --- 92508, Colonoscopy, flexible; with removal of tumor(s), polyp(s), or other lesion(s) by snare technique 18681, 59, Colonoscopy, flexible; with biopsy, single or multiple CPT copyright 2017 [employer]. All rights reserved. The codes documented in this report are preliminary and upon curriculum supervisor review may be revised to meet current compliance requirements. Stephen Carrizales DO 08/21/2021 7:21:28 AM This report has been signed electronically. Number of Addenda: 1 Note Initiated On: 08/21/2021 6:43 AM Addendum Number: 1 Addendum Date: 02/07/2022 6:39:37 AM MAC was used as sedation for this procedure. Stephen Carrizales DO 02/07/2022 6:39:40 AM This report has been signed electronically.
--- NOTE | 2021-08-21 07:23 | OP.CCLET_ITS ---
02/07/2022 Kristina Richard [address] [place] [address] Re : Colonoscopy procedure for Katina Mast Dear Dr. Richard This procedure was performed on Saturday, August 21, 2021. My impressions and recommendations are as follows: Impressions : - Preparation of the colon was fair. - Hemorrhoids found on perianal exam. - No specimens collected. Recommendations : - Discharge patient to home. - Resume previous diet. - Continue present medications. - Await pathology results. - Repeat colonoscopy in 1 year for surveillance based on pathology results. My findings are described in the full procedure note, which is enclosed. If I can be of further assistance, please feel free to contact me at . Sincerely, Stephen Carrizales, 08/21/2021 7:21:28 AM This report has been signed electronically.
[2021-08-21 07:25] VITALS: BP 138/88; BP 138/98; PULSE 83; RESP 18; O2SAT 98
[2021-08-21 07:30] VITALS: BP 136/96; BP 138/88; PULSE 81; RESP 18; TEMP 36.3; O2SAT 99
[2021-08-21 07:50] VITALS: BP 138/88
== END 2021-08-21 23:59 | disposition home or self-care (01) ==
LOC: EN 05:19 → AC 05:20
PROVIDERS: Nurse Practitioner Adult Health; PCP Family Medicine; Referring Provider Family Medicine; Visit Provider Internal Medicine Gastroenterology
PROC: 0DJD8ZZ Inspection of Lower Intestinal Tract, Via Natural or Artificial Opening Endoscopic (ICD-10-PCS; CPT 45378; principal; 2021-08-21 06:25)
DX: D12.0 Benign neoplasm of cecum (principal); M06.9 Rheumatoid arthritis, unspecified; D12.3 Benign neoplasm of transverse colon; K57.30 Diverticulosis of large intestine without perforation or abscess without bleeding; K64.9 Unspecified hemorrhoids; K44.9 Diaphragmatic hernia without obstruction or gangrene; K31.811 Angiodysplasia of stomach and duodenum with bleeding; K21.00 Gastro-esophageal reflux disease with esophagitis, without bleeding; K62.5 Hemorrhage of anus and rectum; K62.89 Other specified diseases of anus and rectum; D50.9 Iron deficiency anemia, unspecified; Z90.49 Acquired absence of other specified parts of digestive tract; Z79.899 Other long term (current) drug therapy; Z86.16 Personal history of COVID-19
CPT/HCPCS: 45385; 45380; 43239; 43255; 36415; 82378; 83615; 86304; 87426; 88305; 88341; 88342; J7120

== ENCOUNTER → 2021-09-19 | Outpatient (CLI) | payer MEDICARE, SELFPAY ==
[2021-09-19 15:40] LABS: Erythrocyte Sedimentation Rate 15 mm/hr (0-30)
== END | disposition home or self-care (01) ==
LOC: LAB 14:50
PROVIDERS: PCP Family Medicine; Referring Provider Nurse Practitioner Adult Health; Visit Provider Nurse Practitioner Adult Health
DX: K51.90 Ulcerative colitis, unspecified, without complications (principal)
CPT/HCPCS: 36415; 85652; 86140

== ENCOUNTER → 2021-10-15 | Outpatient (CLI) | payer MEDICARE, SELFPAY ==
[2021-10-15 10:29] LABS: Absolute Lymphocyte Count 1.27 X10^3/uL (0.83-4.51); Basophil# 0.04 X10^3/uL; Basophil% 1.1 % (0-1); Eosinophil# 0.07 X10^3/uL; Eosinophils% 1.8 % (0-5); Hematocrit 43.2 % (37-47); Hemoglobin 12.9 g/dL (12.0-15.0); Lymphocyte # 1.27 X10^3/ul (0.83-4.51); Lymphocyte % 33.4 % (19-41); Mean Corp Hgb Conc 29.9 g/dL (32-36); Mean Corpuscular Hgb 28.7 pg (27.0-32.0); Mean Corpuscular Volume 96.2 fL (81-99); Mean Platelet Vol. 10.3 fl (6.2-12.0); Monocyte# 0.38 X10^3/uL; NRBC Flagged by Analyzer 0 % (0-5); Neutrophil # 2.03 X10^3/uL (2.7-7.7); Neutrophil % 53.4 % (47-70); Platelet Count 321 K/mm3 (150-450); RBC Distribution Width CV 15.7 % (11.6-14.6); RBC Distribution Width SD 55.8 fl (35.1-43.9); Red Blood Count 4.49 M/mm3 (4.2-5.4); White Blood Count 3.8 K/mm3 (4.4-11.0)
[2021-10-15 11:07] LABS: ALB/GLOB Ratio 0.9 RATIO (0.9-2.4); AST(SGOT) 18 U/L (15-37); Alanine Aminotransfer ALT/SGPT 18 U/L (13-56); Albumin, Serum 3.3 g/dL (3.2-5.0); Alkaline Phosphatase 88 U/L (45-117); Anion Gap 7 (5-15); BUN 10 mg/dL (7-18); BUN/Creat Ratio 12.4 RATIO (10-20); Calcium,Total 8.8 mg/dL (8.5-10.1); Chloride 105 mmol/L (98-107); Creatinine, Serum 0.81 mg/dL (0.55-1.02); EST Glomerular Filtration Rate 73 mL/min (>60); Est Glom Filt Rate - Afr Amer 89 mL/min (>60); Globulin 3.8 g/dL (2.2-4.2); Glucose 72 mg/dL (74-106); Potassium 3.4 mmol/L (3.5-5.1); Protein, Total 7.1 g/dL (6.4-8.2); Sodium Level 141 mmol/L (136-145)
== END | disposition home or self-care (01) ==
LOC: MTLAB 09:09
PROVIDERS: PCP Family Medicine; Referring Provider Internal Medicine Rheumatology; Visit Provider Internal Medicine Rheumatology
DX: L40.59 Other psoriatic arthropathy (principal); L40.9 Psoriasis, unspecified; M16.0 Bilateral primary osteoarthritis of hip; M21.40 Flat foot [pes planus] (acquired), unspecified foot; M47.897 Other spondylosis, lumbosacral region; Z96.641 Presence of right artificial hip joint; Z79.899 Other long term (current) drug therapy
CPT/HCPCS: 36415; 80053; 85025

== ENCOUNTER 2021-11-19 16:21 | Emergency (ER) | payer MEDICARE, SELFPAY ==
[2021-11-19 16:22] VITALS: BP 132/90; PULSE 95; RESP 16; TEMP 36.8; O2SAT 97; BMI 35.9
--- NOTE | 2021-11-19 16:48 | CT_ITS ---
INDICATION: trauma EXAMINATION: CT Spine Thoracic W/O Contrast Injection TECHNIQUE: Helically acquired images were obtained of the thoracic spine. 2D reformats were reviewed. A radiation dose optimization technique was used for this scan. IV Contrast dosage and agent: None. COMPARISON: None. FINDINGS: VERTEBRAE: No fracture. No discrete lytic or blastic abnormality observed. VERTEBRAL ALIGNMENT: Unremarkable. There is preservation of the normal thoracic kyphosis. DISCS: Severe multilevel degenerative disc disease and spondylosis. VISUALIZED THORAX: Visualized thoracic aorta is nondilated. Lung sharp are clear. CT/Spine Thoracic without Contras IMPRESSION: No evidence of acute thoracic spinal fracture or spondylolisthesis. Severe multilevel degenerative disc disease and spondylosis. Electronically Signed: Fer Sánchez MD at 18:50 EDT ,
--- NOTE | 2021-11-19 16:48 | CT_ITS ---
INDICATION: facial trauma EXAMINATION: CT Maxillofacial W/O Contrast Injection TECHNIQUE: Helically acquired images were obtained of the facial bones. A radiation dose optimization technique was used for this scan. IV Contrast dosage and agent: None. COMPARISON: None. FINDINGS: SOFT TISSUES: No focal subcutaneous swelling. No discrete fluid collections. VISUALIZED PARANASAL SINUSES: Small amount of inspissated secretions in the left sphenoid sinus. VISUALIZED MASTOID AIR CELLS: Clear. FACIAL BONES, MANDIBLE AND TMJs: No displaced facial bone fracture. No lytic or blastic abnormality. VISUALIZED DENTITION: No periodontal osseous erosion. ORBITAL CONTENTS: Both globes, extraocular muscles and retrobulbar fat appear unremarkable. CT/Sinus/Facial Bone IMPRESSION: No acute traumatic abnormalities. Mild left sphenoid sinusitis. Electronically Signed: Fer Sánchez MD at 18:49 EDT ,
--- NOTE | 2021-11-19 16:48 | CT_ITS ---
EXAMINATION : Head CT w/out contrast HISTORY : trauma COMPARISON : None. TECHNIQUE : Multiple contiguous axial images were obtained from the skull base to the vertex without intravenous contrast. A radiation dose optimization technique was used for this scan. FINDINGS : There is no evidence for acute intracranial hemorrhage, mass effect, or midline shift. There is no extra-axial fluid collection. There are periventricular white matter changes consistent with chronic microvascular ischemic disease. There is sulcal widening and ventricular enlargement consistent with cerebral atrophy. There is normal moreno-white differentiation, without CT evidence of acute ischemia or infarct. The skull base and calvarium are unremarkable. The orbits are unremarkable. The paranasal sinuses are clear. The mastoid air cells are well-aerated. The soft tissues are unremarkable. CT/Brain/Head without Contrast IMPRESSION: No acute intracranial abnormality. Chronic involutional and ischemic changes of the brain. Electronically Signed: Fer Sánchez MD at 18:47 EDT ,
--- NOTE | 2021-11-19 16:48 | CT_ITS ---
INDICATION: trauma EXAMINATION: CT Spine Cervical W/O Contrast Injection TECHNIQUE: Helically acquired images were obtained of the cervical spine. 2D reformatted images were reviewed. A radiation dose optimization technique was used for this scan. IV Contrast dosage and agent: None. COMPARISON: None. FINDINGS: VERTEBRAE: No fracture or traumatic subluxation. No discrete lytic or blastic abnormality. Normal alignment. Normal craniocervical junction and cervicothoracic junction. DISCS and SPINAL CANAL: Severe multilevel degenerative disc disease and spondylosis. No critical stenosis. NECK SOFT TISSUES: No prevertebral soft tissue swelling. There is no cervical adenopathy. LUNG APICES: Clear. CT/Spine Cervical without Contras IMPRESSION: No evidence of acute cervical spinal fracture or spondylolisthesis. Severe multilevel degenerative disc disease and spondylosis. Electronically Signed: Fer Sánchez MD at 18:49 EDT ,
--- NOTE | 2021-11-19 16:50 | EDS_ITS ---
HPI History of Present Illness Chief Complaint: Fall Narrative Narrative: 5-year-old female with unsteady gait at baseline presenting after she had a mechanical fall forward. She states she fell forward hitting her knees and her face. She did not have LOC. She has a superficial abrasion to the bridge of her nose. She states she initially thought she might of had epistaxis but is unsure if this is from the blood on the bridge of her nose or not. The bleeding is now resolved. Patient denies headache, nausea, vomiting. She still has her baseline unsteady gait. She states she was able to ambulate on her knees without significant pain. Patient states that she does have some neck pain and upper thoracic pain in the midline from her fall. She is not on any oral anticoagulation. [facility] Medical History Arthritis Back pain Gastric reflux GERD (gastroesophageal reflux disease) History of pain when walking History of rheumatic fever Leg cramps Migraine headache Non-smoker Post-menopausal Rectal bleeding Restless legs Rheumatoid arthritis Shortness of breath on exertion Wears glasses Home Medications Omeprazole [Prilosec] 40 mg PO DAILY 10/21/14 [History Last Taken Unknown] cranberry concentrate-ascorbic acid 6,000 mg-100 mg capsule 15,000 cap PO DAILY 10/21/14 [History Last Taken Unknown] folic acid 1 mg tablet 2 mg PO DAILY@0800 10/21/14 [History Last Taken Unknown] Potassium 1 tab PO PRN PRN LOW K+ 07/27/21 [History Last Taken Unknown] cholecalciferol (vitamin D3) 25 mcg (1,000 unit) capsule 25 mcg PO DAILY 07/27/21 [History Last Taken Unknown] conjugated estrogens 0.625 mg/gram vaginal cream (Premarin) 1.25 mg vaginal QWEEK 07/27/21 [History Last Taken Unknown] methotrexate sodium 2.5 mg tablet See Rx Instructions .Route .COMPLEX 07/27/21 [History Last Taken Unknown] nortriptyline 25 mg capsule 25 mg PO QHS 07/27/21 [History Last Taken Unknown] tramadol 100 mg capsule 24h,extended release(25-75) (ConZip) 50 mg PO .QID PRN Pain 07/27/21 [History Last Taken Unknown] zinc 50 mg tablet 50 mg PO QODAY 07/27/21 [History Last Taken Unknown] calcium carbonate 600 mg calcium (1,500 mg) tablet (Calcium) 1,200 mg PO DAILY 08/20/21 [History Last Taken Unknown] latanoprost 0.005 % eye drops 1 drp EACH EYE QHS 08/20/21 [History Last Taken Unknown] loratadine 10 mg tablet 10 mg PO DAILY 08/20/21 [History Last Taken Unknown] balsalazide 750 mg capsule 750 mg PO BID #180 caps 09/19/21 [Rx Last Taken Unknown] Allergy/AdvReac Type Severity Reaction Status Date / Time aspirin Allergy Unknown Verified 08/21/21 06:00 codeine Allergy Unknown Verified 08/21/21 06:00 Sulfa (Sulfonamide Allergy Unknown Verified 08/21/21 06:00 Antibiotics) Family History Father Cancer bladder Mother Heart disease Surgical History Hx of appendectomy Hx of arthroscopic knee surgery Hx of arthroscopy of shoulder Hx of bladder repair surgery Hx of brain surgery Hx of breast biopsy Hx of hysterectomy Hx of total hip arthroplasty Social History Smoking Status: Never smoker alcohol intake: never substance use type: does not use what type of physical activity do you participate in: none EXAM Physical Exam Const Vital Signs: 11/19/21 16:22 11/19/21 16:55 Temperature 98.3 F Temperature Source Temporal Pulse Rate 95 Respiratory Rate 16 Respiratory Effort Normal Respiratory Depth Normal Respiratory Pattern Normal Blood Pressure 132/90 H Blood Pressure Mean 104 Pulse Ox 97 Oxygen Delivery Method Room Air Room Air Positive well nourished and well developed General Appearance ED: well developed HEENT HEENT Narrative: The patient the nose has superficial abrasion. There is no obvious deformity. The nares are patent. There is no epistaxis present. No facial bone tenderness otherwise. TMs without hemotympanum. Eyes PERRL Chest Wall inspection of chest normal and palpation of chest normal Resp normal respiratory effort and clear to auscultation bilaterally Cardio regular rhythm Back/Spine Back/Spine Narrative: There is midline spinal tenderness of the cervical spine and thoracic spine. No obvious deformity or step-off. There is paraspinal muscular tenderness bilaterally in the same areas. Extremity normal to inspection Neuro oriented x3, CN's II-XII intact bilaterally, moves all extremities and no focal motor deficits Sensorium / Orientation: alert, oriented to person, oriented to place and oriented to time Motor Exam: strength 5/5 throughout Psych mental status grossly normal Skin no rashes or lesions noted MDM MDM MDM Narrative Medical decision making narrative: Patient with mechanical fall and previous epistaxis has resolved. There is no nasal septal hematoma. There are some swelling over the nasal bridge. TMs are normal. Patient is having some neck pain and mild headache. I obtained a CT brain and facial bones which is normal. CT cervical spine and thoracic spine also show some chronic changes but no acute fractures. Patient declined anything for analgesia. She does have an abrasion over the bridge of her nose which will be dressed and she will be discharged home with her family. Impression: 1. Mechanical fall 2. Facial contusion 3. Cervical strain 4. Thoracic strain 5. Epistaxis resolved Radiography Diagnostic Testing: Clinical Impression(s) from Imaging Studies Brain CT 11/19/21 16:48 IMPRESSION: No acute intracranial abnormality. Chronic involutional and ischemic changes of the brain. Electronically Signed: Fer Sánchez MD at 18:47 EDT Reading Location ID and State: [employer] [facility] [employer] Tel , Service support , Cervical Spine CT 11/19/21 16:48 IMPRESSION: No evidence of acute cervical spinal fracture or spondylolisthesis. Severe multilevel degenerative disc disease and spondylosis. Electronically Signed: Fer Sánchez MD at 18:49 EDT Reading Location ID and State: [employer] / [place] Tel , Service support , Facial/Sinus 11/19/21 16:48 IMPRESSION: No acute traumatic abnormalities. Mild left sphenoid sinusitis. Electronically Signed: Fer Sánchez MD at 18:49 EDT Reading Location ID and State: [employer] / [place] Tel , Service support , Thoracic Spine CT 11/19/21 16:48 IMPRESSION: No evidence of acute thoracic spinal fracture or spondylolisthesis. Severe multilevel degenerative disc disease and spondylosis. Electronically Signed: Fer Sánchez MD at 18:50 EDT , Discharge Plan Triage Chief Complaint: Fall ED Provider: Cameron Alfaro Dx/Rx/DC Orders Instructions: ED Facial Contusion, ED Mechanical Fall, ED Neck Sprain or Strain, ED Thoracic Spine Strain Prescriptions: No Action zinc 50 mg tablet 50 mg PO QODAY Premarin 0.625 mg/gram cream 1.25 mg vaginal QWEEK Rx Instructions: off 5 days; repeat cycle cholecalciferol (vitamin D3) 25 mcg (1,000 unit) capsule 25 mcg PO DAILY nortriptyline 25 mg capsule 25 mg PO QHS Potassium 99 mg tablet 1 tab PO PRN PRN (Reason: LOW K+) balsalazide 750 mg capsule 750 mg PO BID Qty: 180 3RF folic acid 1 MG tablet 2 mg PO DAILY@0800 cranberry conc-ascorbic acid 1 EACH capsule 15,000 cap PO DAILY Omeprazole [Prilosec] 40 MG capsule 40 mg PO DAILY tramadol [ConZip] 100 mg capsule,ER biphase 24 hr 25-75 50 mg PO .QID PRN (Reason: Pain) methotrexate sodium 2.5 mg tablet See Rx Instructions .ROUTE .COMPLEX Rx Instructions: 6 tabs PO QWEEK-TAKES ON FRIDAY latanoprost 0.005 % drops 1 drp EACH EYE QHS calcium carbonate [Calcium 600] 600 mg calcium (1,500 mg) Tablet 1,200 mg PO DAILY loratadine 10 mg Tablet 10 mg PO DAILY Primary Care Provider: Kristina Richard Referrals: Kristina Richard MD [Primary Care Provider] - Disposition Disposition: Home, Self Care
[2021-11-19 19:51] VITALS: BP 170/79; PULSE 79; RESP 18; O2SAT 99
== END 2021-11-19 19:54 | disposition home or self-care (01) ==
PROVIDERS: Emergency Provider Student in an Organized Health Care Education/Training Program; PCP Family Medicine; Visit Provider Student in an Organized Health Care Education/Training Program
DX: S00.83XA Contusion of other part of head, initial encounter (principal); S23.9XXA Sprain of unspecified parts of thorax, initial encounter; S16.1XXA Strain of muscle, fascia and tendon at neck level, initial encounter; R26.81 Unsteadiness on feet; W19.XXXA Unspecified fall, initial encounter; K21.9 Gastro-esophageal reflux disease without esophagitis; M19.90 Unspecified osteoarthritis, unspecified site; Z79.899 Other long term (current) drug therapy
CPT/HCPCS: 70450; 70486; 72125; 72128; 99282

== ENCOUNTER → 2021-12-10 | Outpatient (CLI) | payer MEDICARE, SELFPAY ==
[2021-12-10 14:28] LABS: Erythrocyte Sedimentation Rate 11 mm/hr (0-30)
[2021-12-10 14:53] LABS: CRP 9.08 mg/L (0.0-3.0)
[2021-12-12 13:57] LABS: Carcinoembryonic Antigen 6.1 ng/mL (0.0-4.7)
== END | disposition home or self-care (01) ==
LOC: LAB 13:59
PROVIDERS: PCP Family Medicine; Referring Provider Nurse Practitioner Adult Health; Visit Provider Nurse Practitioner Adult Health
DX: R97.0 Elevated carcinoembryonic antigen [CEA] (principal); K51.90 Ulcerative colitis, unspecified, without complications
CPT/HCPCS: 36415; 82378; 85652; 86140

== ENCOUNTER → 2021-12-11 | Outpatient (CLI) | payer MEDICARE, SELFPAY ==
[2021-12-13 21:54] LABS: Calprotectin, Stool 75 ug/g (0-120)
== END | disposition home or self-care (01) ==
PROVIDERS: PCP Family Medicine; Referring Provider Nurse Practitioner Adult Health; Visit Provider Nurse Practitioner Adult Health
DX: K51.90 Ulcerative colitis, unspecified, without complications (principal); K58.9 Irritable bowel syndrome, unspecified
CPT/HCPCS: 83630; 83993

== ENCOUNTER → 2022-01-04 | Outpatient (CLI) | payer MEDICARE, SELFPAY ==
[2022-01-04 17:25] LABS: Absolute Lymphocyte Count 1.24 X10^3/uL (0.83-4.51); Absolute Neutrophil Count 2.1 X10^3/uL (2.0-7.7); Basophil# 0.03 X10^3/uL; Basophil% 0.8 % (0-1); Eosinophil# 0.04 X10^3/uL; Eosinophils% 1.1 % (0-5); Hemoglobin 12.8 g/dL (12.0-15.0); Lymphocyte # 1.24 X10^3/ul (0.83-4.51); Lymphocyte % 33.2 % (19-41); Mean Corp Hgb Conc 30.5 g/dL (32-36); Mean Corpuscular Hgb 29.7 pg (27.0-32.0); Mean Corpuscular Volume 97.4 fL (81-99); Mean Platelet Vol. 10.5 fl (6.2-12.0); NRBC Flagged by Analyzer 0 % (0-5); Neutrophil # 2.12 X10^3/uL (2.7-7.7); Neutrophil % 56.6 % (47-70); Platelet Count 272 K/mm3 (150-450); RBC Distribution Width CV 15.9 % (11.6-14.6); Red Blood Count 4.31 M/mm3 (4.2-5.4); White Blood Count 3.7 K/mm3 (4.4-11.0)
[2022-01-04 17:40] LABS: ALB/GLOB Ratio 0.9 RATIO (0.9-2.4); AST(SGOT) 20 U/L (15-37); Alanine Aminotransfer ALT/SGPT 20 U/L (13-56); Albumin, Serum 3.3 g/dL (3.2-5.0); Alkaline Phosphatase 86 U/L (45-117); Anion Gap 3 (5-15); BUN 10 mg/dL (7-18); Calcium,Total 8.4 mg/dL (8.5-10.1); Chloride 103 mmol/L (98-107); Creatinine, Serum 0.77 mg/dL (0.55-1.02); EST Glomerular Filtration Rate 78 mL/min (>60); Est Glom Filt Rate - Afr Amer 94 mL/min (>60); Globulin 3.6 g/dL (2.2-4.2); Glucose 94 mg/dL (74-106); Potassium 3.6 mmol/L (3.5-5.1); Protein, Total 6.9 g/dL (6.4-8.2); Sodium Level 139 mmol/L (136-145)
== END | disposition home or self-care (01) ==
PROVIDERS: PCP Family Medicine; Referring Provider Internal Medicine Rheumatology; Visit Provider Internal Medicine Rheumatology
DX: L40.59 Other psoriatic arthropathy (principal); M16.0 Bilateral primary osteoarthritis of hip; M21.40 Flat foot [pes planus] (acquired), unspecified foot; M47.897 Other spondylosis, lumbosacral region; H47.293 Other optic atrophy, bilateral; H40.019 Open angle with borderline findings, low risk, unspecified eye; H53.461 Homonymous bilateral field defects, right side; H43.819 Vitreous degeneration, unspecified eye; Z96.641 Presence of right artificial hip joint; Z79.899 Other long term (current) drug therapy
CPT/HCPCS: 36415; 80053; 85025

== ENCOUNTER → 2022-04-01 | Outpatient (CLI) | payer MEDICARE, SELFPAY ==
[2022-04-01 17:49] LABS: Absolute Neutrophil Count 2.2 X10^3/uL (2.0-7.7); Basophil# 0.04 X10^3/uL; Eosinophil# 0.04 X10^3/uL; Hematocrit 44.3 % (37-47); Hemoglobin 13.4 g/dL (12.0-15.0); Lymphocyte % 31.3 % (19-41); Mean Corp Hgb Conc 30.2 g/dL (32-36); Mean Corpuscular Hgb 29.3 pg (27.0-32.0); Mean Corpuscular Volume 96.9 fL (81-99); Mean Platelet Vol. 10.7 fl (6.2-12.0); Monocyte# 0.35 X10^3/uL; Monocyte% 9.1 % (0-10); NRBC Flagged by Analyzer 0 % (0-5); Neutrophil % 57.3 % (47-70); Platelet Count 302 K/mm3 (150-450); RBC Distribution Width CV 15.3 % (11.6-14.6); RBC Distribution Width SD 54.8 fl (35.1-43.9); Red Blood Count 4.57 M/mm3 (4.2-5.4); White Blood Count 3.8 K/mm3 (4.4-11.0)
[2022-04-01 18:29] LABS: ALB/GLOB Ratio 0.9 RATIO (0.9-2.4); AST(SGOT) 18 U/L (15-37); Alanine Aminotransfer ALT/SGPT 19 U/L (13-56); Albumin, Serum 3.4 g/dL (3.2-5.0); Alkaline Phosphatase 86 U/L (45-117); Anion Gap 7 (5-15); BUN 11 mg/dL (7-18); BUN/Creat Ratio 14.5 RATIO (10-20); Calcium,Total 8.7 mg/dL (8.5-10.1); Chloride 103 mmol/L (98-107); Creatinine, Serum 0.76 mg/dL (0.55-1.02); EST Glomerular Filtration Rate 79 mL/min (>60); Est Glom Filt Rate - Afr Amer 95 mL/min (>60); Globulin 3.6 g/dL (2.2-4.2); Glucose 98 mg/dL (74-106); Potassium 3.8 mmol/L (3.5-5.1); Sodium Level 142 mmol/L (136-145)
== END | disposition home or self-care (01) ==
LOC: MTLAB 14:25
PROVIDERS: PCP Family Medicine; Visit Provider Internal Medicine Rheumatology
DX: L40.59 Other psoriatic arthropathy (principal); M16.0 Bilateral primary osteoarthritis of hip; M21.40 Flat foot [pes planus] (acquired), unspecified foot; M47.897 Other spondylosis, lumbosacral region; H47.293 Other optic atrophy, bilateral; H40.019 Open angle with borderline findings, low risk, unspecified eye; H53.461 Homonymous bilateral field defects, right side; H43.819 Vitreous degeneration, unspecified eye; Z79.899 Other long term (current) drug therapy
CPT/HCPCS: 36415; 80053; 85025

== ENCOUNTER → 2022-06-28 | Outpatient (CLI) | payer MEDICARE, SELFPAY ==
[2022-06-28 15:15] LABS: Absolute Lymphocyte Count 1.22 X10^3/uL (0.83-4.51); Absolute Neutrophil Count 1.9 X10^3/uL (2.0-7.7); Basophil# 0.04 X10^3/uL; Basophil% 1.1 % (0-1); Eosinophil# 0.08 X10^3/uL; Eosinophils% 2.2 % (0-5); Hematocrit 44.1 % (37-47); Hemoglobin 13.4 g/dL (12.0-15.0); Lymphocyte # 1.22 X10^3/ul (0.83-4.51); Lymphocyte % 33.6 % (19-41); Mean Corp Hgb Conc 30.4 g/dL (32-36); Mean Corpuscular Hgb 29.3 pg (27.0-32.0); Mean Corpuscular Volume 96.5 fL (81-99); Mean Platelet Vol. 10.6 fl (6.2-12.0); Monocyte# 0.34 X10^3/uL; Monocyte% 9.4 % (0-10); NRBC Flagged by Analyzer 0 % (0-5); Neutrophil # 1.94 X10^3/uL (2.7-7.7); Neutrophil % 53.4 % (47-70); Platelet Count 283 K/mm3 (150-450); RBC Distribution Width CV 15.4 % (11.6-14.6); RBC Distribution Width SD 54.9 fl (35.1-43.9); Red Blood Count 4.57 M/mm3 (4.2-5.4); White Blood Count 3.6 K/mm3 (4.4-11.0)
[2022-06-28 16:10] LABS: ALB/GLOB Ratio 0.9 RATIO (0.9-2.4); AST(SGOT) 22 U/L (15-37); Alanine Aminotransfer ALT/SGPT 17 U/L (13-56); Albumin, Serum 3.4 g/dL (3.2-5.0); Alkaline Phosphatase 91 U/L (45-117); Anion Gap 6 (5-15); BUN 12 mg/dL (7-18); BUN/Creat Ratio 16.3 RATIO (10-20); Calcium,Total 8.8 mg/dL (8.5-10.1); Chloride 105 mmol/L (98-107); Creatinine, Serum 0.74 mg/dL (0.55-1.02); EST Glomerular Filtration Rate 81 mL/min (>60); Est Glom Filt Rate - Afr Amer 98 mL/min (>60); Globulin 3.7 g/dL (2.2-4.2); Glucose 76 mg/dL (74-106); Potassium 3.6 mmol/L (3.5-5.1); Protein, Total 7.1 g/dL (6.4-8.2); Sodium Level 141 mmol/L (136-145)
== END | disposition home or self-care (01) ==
PROVIDERS: PCP Family Medicine; Referring Provider Internal Medicine Rheumatology; Visit Provider Internal Medicine Rheumatology
DX: L40.59 Other psoriatic arthropathy (principal); Z79.899 Other long term (current) drug therapy
CPT/HCPCS: 36415; 80053; 85025

== ENCOUNTER → 2022-07-12 | Outpatient (CLI) | payer MEDICARE, SELFPAY ==
[2022-07-12 17:12] LABS: CRP 4.89 mg/L (0.0-3.0)
[2022-07-12 18:36] LABS: Erythrocyte Sedimentation Rate 12 mm/hr (0-30)
[2022-07-14 14:07] LABS: Carcinoembryonic Antigen 6.2 ng/mL (0.0-4.7)
== END | disposition home or self-care (01) ==
PROVIDERS: PCP Family Medicine; Referring Provider Nurse Practitioner Adult Health; Visit Provider Nurse Practitioner Adult Health
DX: R97.0 Elevated carcinoembryonic antigen [CEA] (principal)
CPT/HCPCS: 36415; 82378; 85652; 86140

== ENCOUNTER → 2022-09-02 | Outpatient (CLI) | payer MEDICARE, SELFPAY ==
[2022-09-02 18:00] LABS: Absolute Lymphocyte Count 1.17 X10^3/uL (0.83-4.51); Absolute Neutrophil Count 2.1 X10^3/uL (2.0-7.7); Basophil# 0.04 X10^3/uL; Basophil% 1.1 % (0-1); Eosinophil# 0.04 X10^3/uL; Eosinophils% 1.1 % (0-5); Hematocrit 46.8 % (37-47); Hemoglobin 13.8 g/dL (12.0-15.0); Lymphocyte # 1.17 X10^3/ul (0.83-4.51); Lymphocyte % 31.7 % (19-41); Mean Corp Hgb Conc 29.5 g/dL (32-36); Mean Corpuscular Hgb 28.6 pg (27.0-32.0); Mean Corpuscular Volume 97.1 fL (81-99); Mean Platelet Vol. 10.8 fl (6.2-12.0); Monocyte# 0.37 X10^3/uL; NRBC Flagged by Analyzer 0 % (0-5); Neutrophil # 2.06 X10^3/uL (2.7-7.7); Neutrophil % 55.8 % (47-70); Platelet Count 292 K/mm3 (150-450); RBC Distribution Width CV 15.2 % (11.6-14.6); RBC Distribution Width SD 54.1 fl (35.1-43.9); Red Blood Count 4.82 M/mm3 (4.2-5.4); White Blood Count 3.7 K/mm3 (4.4-11.0)
[2022-09-02 18:16] LABS: ALB/GLOB Ratio 0.9 RATIO (0.9-2.4); AST(SGOT) 24 U/L (15-37); Alanine Aminotransfer ALT/SGPT 25 U/L (13-56); Albumin, Serum 3.5 g/dL (3.2-5.0); Alkaline Phosphatase 92 U/L (45-117); Anion Gap 4 (5-15); BUN 10 mg/dL (7-18); BUN/Creat Ratio 14.5 RATIO (10-20); Calcium,Total 8.7 mg/dL (8.5-10.1); Chloride 103 mmol/L (98-107); Creatinine, Serum 0.69 mg/dL (0.55-1.02); EST Glomerular Filtration Rate 88 mL/min (>60); Est Glom Filt Rate - Afr Amer 106 mL/min (>60); Globulin 3.9 g/dL (2.2-4.2); Glucose 99 mg/dL (74-106); Potassium 3.6 mmol/L (3.5-5.1); Protein, Total 7.4 g/dL (6.4-8.2); Sodium Level 139 mmol/L (136-145)
== END | disposition home or self-care (01) ==
LOC: MTLAB 14:13
PROVIDERS: PCP Family Medicine; Referring Provider Internal Medicine Rheumatology; Visit Provider Internal Medicine Rheumatology
DX: L40.59 Other psoriatic arthropathy (principal); Z79.899 Other long term (current) drug therapy
CPT/HCPCS: 36415; 80053; 85025

== ENCOUNTER → 2022-09-16 | Outpatient (CLI) | payer MEDICARE, SELFPAY ==
--- NOTE | 2022-09-16 15:01 | BI_ITS ---
MAMMOGRAPHY - BILATERAL SCREENING REASON FOR EXAM: Female, 76 years old. Routine annual screening examination. PERTINENT HISTORY: Non-contributory. Remote left excisional breast biopsy. TECHNIQUE: Digital bilateral breast jinny (3D mammographic acquisition) in the CC and MLO projections. 2-D mediolateral oblique (MLO) and craniocaudad (CC) views of both breasts were obtained. CAD: Full Field Digital Mammography with Computer Added Detection was performed. COMPARISON: Comparison is made with prior study dated July 26, 2021 and July 25, 2020. FINDINGS: Breast Composition: The breasts are heterogeneously dense, which may obscure small masses. There are no dominant masses or suspicious calcifications. No other significant abnormalities are identified. There has been no significant change since the prior study. BI/SCRN MAMM (CAD)W/JINNY BILAT IMPRESSION: Stable bilateral screening mammogram. Yearly follow-up mammogram recommended. (A) ASSESSMENT CATEGORY: BIRADS Category 1: Negative. A letter regarding these results will be sent to the patient by the facility within 30 days. Approximately 10% of breast cancers are not detected by mammography. A normal mammogram should not delay biopsy of a clinically suspicious abnormality. [id number] Electronically Signed: Anthony Mercer MD at 8:37 EDT ,
== END | disposition home or self-care (01) ==
LOC: OPBI 15:00
PROVIDERS: PCP Family Medicine; Referring Provider Family Medicine; Visit Provider Family Medicine
DX: Z12.31 Encounter for screening mammogram for malignant neoplasm of breast (principal)
CPT/HCPCS: 77063; 77067

== ENCOUNTER 2022-11-06 05:21 | Day surgery (SDC) | payer MEDICARE, SELFPAY ==
--- NOTE | 2022-11-06 06:30 | COLBX_PTH ---
PATIENT: ANNE DUARTE LOC: EN U#:[id number] AGE/SX: 76/F ROOM: RE11/06/[address]: Dr. Stephen Carrizales DO : 1945 BED: DIS: 11/06/2022 SPEC #: [id number] RECD: 11/06/22 10:37 STATUS: HARSHAL REGarfield #: [id number] GAUDENCIO: 11/06/22 06:[address]: Stephen Carrizales DEPT: SURGICAL PATHOLOGY RECD BY: Libertad Kelsey ENTERED: 11/06/22 11:15 SP TYPE: COLON BX FRANCHESCA DR: Dr. Kristina Richard MD Tissues: A - Ileum, NOS B - COLON BIOPSY Procedures: Surgery Specimen Level IV HEADER OPERATION: Colonoscopy (MAC) PRE-OP DIAGNOSIS: Diarrhea TISSUE SUBMITTED: A - Terminal ileum biopsy, B - Random colonic biopsy MICROSCOPIC DIAGNOSIS A. Terminal ileum, biopsy: No pathologic change. B. Colon, random biopsy: Melanosis coli. AM:starr 11/07/2022 MICROSCOPIC DESCRIPTION Slides are reviewed. GROSS DESCRIPTION A - Received in fixative is one container labeled with the patient's name and designated terminal ileum. The specimen consists of two irregular fragments of light yip soft tissue that in aggregate measure 0.5 x 0.4 x 0.1 cm. The specimen is totally submitted in one cassette. B - Received in fixative is one container labeled with the patient's name and designated random colon biopsy. The specimen consists of multiple irregular fragments of light yip soft tissue that in aggregate measure 1.5 x 0.5 x 0.1 cm. The specimen is totally submitted in one cassette. / SJ:starr 11/06/2022 TC: CPT: 92677 x2
--- NOTE | 2022-11-06 07:04 | OP.COLON_ITS ---
Patient Name: Katina Ortiz Procedure Date: 11/06/2022 6:13 AM Date of : 1945 Age: 76 Procedure: Colonoscopy Indications: Chronic diarrhea Providers: Stephen Carrizales DO Referring MD: Stephen Carrizales DO Medicines: Monitored Anesthesia Care Patient Profile: This is a 76 year old female. Refer to note in patient chart for documentation of history and physical. Last Colonoscopy: 1 year ago. Complications: No immediate complications. Procedure: Pre-Anesthesia Assessment: - Prior to the procedure, a History and Physical was performed, and patient medications and allergies were reviewed. The risks and benefits of the procedure and the sedation options and risks were discussed with the patient. All questions were answered and informed consent was obtained. Patient identification and proposed procedure were verified by the physician. Mental Status Examination: normal. Prophylactic Antibiotics: The patient does not require prophylactic antibiotics. Prior Anticoagulants: The patient has taken no previous anticoagulant or antiplatelet agents. ASA Grade Assessment: II - A patient with mild systemic disease. After reviewing the risks and benefits, the patient was deemed in satisfactory condition to undergo the procedure. The anesthesia plan was to use monitored anesthesia care (MAC). Immediately prior to administration of medications, the patient was re-assessed for adequacy to receive sedatives. The heart rate, respiratory rate, oxygen saturations, blood pressure, adequacy of pulmonary ventilation, and response to care were monitored throughout the procedure. The physical status of the patient was re-assessed after the procedure. After I obtained informed consent, the scope was passed under direct vision. Throughout the procedure, the patient's blood pressure, pulse, and oxygen saturations were monitored continuously. The Colonoscope was introduced through the anus and advanced to the terminal ileum. The colonoscopy was performed without difficulty. The patient tolerated the procedure well. The quality of the bowel preparation was adequate. Scope In: 6:45:04 AM Scope Withdrawal Time 0 hours 9 minutes 47 seconds Scope Out: 6:57:40 AM Total Procedure Duration Time 0 hours 12 minutes 36 seconds Findings: The perianal and digital rectal examinations were normal. A few small and large-mouthed diverticula were found in the recto-sigmoid colon, sigmoid colon and descending colon. An area of mildly congested mucosa was found in the recto-sigmoid colon, in the sigmoid colon and in the descending colon. Biopsies were taken with a cold forceps for histology. Verification of patient identification for the specimen was done. Estimated blood loss was minimal. The terminal ileum appeared normal. Biopsies were taken with a cold forceps for histology. Verification of patient identification for the specimen was done. Estimated blood loss was minimal. Impression: - Diverticulosis in the recto-sigmoid colon, in the sigmoid colon and in the descending colon. - Congested mucosa in the recto-sigmoid colon, in the sigmoid colon and in the descending colon. Biopsied. - The examined portion of the ileum was normal. Biopsied. Recommendation: - Discharge patient to home. - Resume previous diet. - Repeat colonoscopy. - Continue present medications. Procedure Code(s): --- Professional --- 91107, Colonoscopy, flexible; with biopsy, single or multiple CPT copyright 2017 [employer]. All rights reserved. The codes documented in this report are preliminary and upon service order dispatcher chief review may be revised to meet current compliance requirements. Stephen Carrizales DO 11/06/2022 7:03:53 AM This report has been signed electronically. Number of Addenda: 0 Note Initiated On: 11/06/2022 6:13 AM
--- NOTE | 2022-11-06 07:05 | OP.CCLET_ITS ---
11/06/2022 Kristina Richard [address] [place] [address] Re : Colonoscopy procedure for Katina Mast Dear Dr. Richard This procedure was performed on Sunday, November 06, 2022. My impressions and recommendations are as follows: Impressions : - Diverticulosis in the recto-sigmoid colon, in the sigmoid colon and in the descending colon. - Congested mucosa in the recto-sigmoid colon, in the sigmoid colon and in the descending colon. Biopsied. - The examined portion of the ileum was normal. Biopsied. Recommendations : - Discharge patient to home. - Resume previous diet. - Repeat colonoscopy. - Continue present medications. My findings are described in the full procedure note, which is enclosed. If I can be of further assistance, please feel free to contact me at . Sincerely, Stephen Carrizales, 11/06/2022 7:03:53 AM This report has been signed electronically.
--- NOTE | 2022-11-06 07:24 | PCM.HP.BLA ---
History and Physical Date of Admission: 11/06/22 ANNE DUARTE, is a 76 F who presents to the office today for 7 month f/u ulcerative colitis. At her last visit she was doing very well on balsalazide. 12/2021 labs: esr 11, crp 9, positive fecal lactoferrin, normal stool calprotectin, CEA 6.1 (0-4.7) which was improved from 7.1--this was ok as long as symptoms controlled with medication for UC per Dr Carrizales. She is due for repeat colonoscopy Spring 2022. Today she reports she is doing very well--no abd pain, diarrhea, rectal bleeding, mucus per rectum on balsalazide. Bowels are regular, formed. GERD is well controlled with PPI therapy. If she takes 2nd dose of balsalazide too late in the day then she has insomnia; so she takes 1 dose in the morning and the other in the early afternoon and has no trouble sleeping. Good appetite weight is stable. Nonsmoker. She established with this office on 07/30/21 with a recent onset of bright red blood per rectum with clots, mucus per rectum with intermittent fecal seepage, lower abdominal pain prior to BM.? She briefly had diarrhea but that resolved spontaneously.? Her stool was Hemoccult positive at primary care office.? We got CT abd pel which was suspicious for a rectal mass. So we got tumor markers LDH 192 nl, CEA 7.1 high, CA 125 17.4 nl. Biopsies showed chronic active colitis in the rectum and sigmoid colon. She started balsalazide mid August 2021. ROS Const Constitutional: Positive for headache(s); No fatigue ENT ENT: Positive for headache(s); No difficulty swallowing Gastro GI: Positive for heartburn; No abdominal pain, belching, bloating, change in bowel habits, change in stool character, coffee ground emesis, constipation, cramping, diarrhea, difficulty swallowing, feeling full early, excessive flatus, incontinent of stools, Vomiting blood/hematemesis, Blood in stool, loose stools, Black,tarry stools, nausea/dyspepsia, pain with swallowing, vomiting or other Musc Musculoskeletal: Positive for joint pain, back pain, Arthritis and restless legs Skin Skin: No yellowing of the eye or itchy eyes Neuro Neurology: Positive for headache(s) and restless legs Psych Psychiatric: No anxiety and No depression Endo Endocrine: No fatigue Aller/Imm Allergy/Immunologic: No itchy eyes Vance/Lymp Hematologic/Lymphatic: No easy bleeding or easy bruising Exam Const General: cooperative and comfortable Orientation: alert, awake and oriented x3 Quality Reporting Tobacco Screening ([facility] 138) Smoking Status: Never smoker Assessment and Plan Assessment and Plan (1) Ulcerative colitis: Status: Chronic Plan: 76 yr old female with UC on balsalazide bid. She is asymptomatic. Will update CEA. She is due for repeat colonoscopy, f/u 2 wks later in office to discuss results. (2) Elevated CEA: Status: Chronic Plan: as above Orders: Orders Carcinoembryonic Antigen Today R97.0 - Elevated carcinoembryonic antigen [CEA] CRP Today R97.0 - Elevated carcinoembryonic antigen [CEA] Erythrocyte Sed Rate Today R97.0 - Elevated carcinoembryonic antigen [CEA] I have examined the patient and the H&P has been reviewed. There are no clinical changes since date of exam.
== END 2022-11-06 07:58 | disposition home or self-care (01) ==
LOC: EN 07:45 → AC 08:18
PROVIDERS: PCP Family Medicine; Referring Provider Family Medicine; Visit Provider Internal Medicine Gastroenterology
PROC: 0DJD8ZZ Inspection of Lower Intestinal Tract, Via Natural or Artificial Opening Endoscopic (ICD-10-PCS; CPT 45378; principal; 2022-11-06 06:25)
DX: K51.90 Ulcerative colitis, unspecified, without complications (principal); M06.9 Rheumatoid arthritis, unspecified; K63.89 Other specified diseases of intestine; K57.30 Diverticulosis of large intestine without perforation or abscess without bleeding; K21.9 Gastro-esophageal reflux disease without esophagitis; Z79.899 Other long term (current) drug therapy
CPT/HCPCS: 45380; 88305; J7120; J2405

== ENCOUNTER → 2022-12-03 | Outpatient (CLI) | payer MEDICARE, SELFPAY ==
[2022-12-03 12:29] LABS: Erythrocyte Sedimentation Rate 9 mm/hr (0-30)
[2022-12-03 12:34] LABS: Absolute Lymphocyte Count 1.14 X10^3/uL (0.83-4.51); Absolute Neutrophil Count 1.9 X10^3/uL (2.0-7.7); Basophil# 0.03 X10^3/uL; Basophil% 0.9 % (0-1); Eosinophil# 0.04 X10^3/uL; Eosinophils% 1.2 % (0-5); Hematocrit 43.8 % (37-47); Hemoglobin 13.3 g/dL (12.0-15.0); Lymphocyte # 1.14 X10^3/ul (0.83-4.51); Mean Corp Hgb Conc 30.4 g/dL (32-36); Mean Corpuscular Hgb 29.6 pg (27.0-32.0); Mean Corpuscular Volume 97.3 fL (81-99); Mean Platelet Vol. 10.8 fl (6.2-12.0); Monocyte# 0.34 X10^3/uL; Monocyte% 9.9 % (0-10); NRBC Flagged by Analyzer 0 % (0-5); Platelet Count 274 K/mm3 (150-450); RBC Distribution Width CV 15.6 % (11.6-14.6); RBC Distribution Width SD 55.9 fl (35.1-43.9); White Blood Count 3.5 K/mm3 (4.4-11.0)
[2022-12-03 13:07] LABS: ALB/GLOB Ratio 0.9 RATIO (0.9-2.4); AST(SGOT) 18 U/L (15-37); Alanine Aminotransfer ALT/SGPT 17 U/L (13-56); Albumin, Serum 3.3 g/dL (3.2-5.0); Alkaline Phosphatase 85 U/L (45-117); Anion Gap 5 (5-15); BUN 13 mg/dL (7-18); BUN/Creat Ratio 16.7 RATIO (10-20); CRP 9.45 mg/L (0.0-3.0); Calcium,Total 8.3 mg/dL (8.5-10.1); Chloride 106 mmol/L (98-107); Creatinine, Serum 0.78 mg/dL (0.55-1.02); EST Glomerular Filtration Rate 77 mL/min (>60); Est Glom Filt Rate - Afr Amer 93 mL/min (>60); Globulin 3.6 g/dL (2.2-4.2); Glucose 65 mg/dL (74-106); Potassium 3.5 mmol/L (3.5-5.1); Protein, Total 6.9 g/dL (6.4-8.2); Sodium Level 141 mmol/L (136-145)
[2022-12-04 04:12] LABS: Carcinoembryonic Antigen 5.5 ng/mL (0.0-4.7)
== END | disposition home or self-care (01) ==
LOC: MTLAB 09:32
PROVIDERS: Internal Medicine Gastroenterology; PCP Family Medicine; Referring Provider Internal Medicine Rheumatology; Visit Provider Internal Medicine Rheumatology
DX: L40.59 Other psoriatic arthropathy (principal); K51.90 Ulcerative colitis, unspecified, without complications; R97.0 Elevated carcinoembryonic antigen [CEA]; Z79.899 Other long term (current) drug therapy
CPT/HCPCS: 36415; 80053; 82378; 85025; 85652; 86140

== ENCOUNTER → 2022-12-19 | Outpatient (CLI) | payer MEDICARE, SELFPAY ==
[2022-12-22 16:07] LABS: Calprotectin, Stool 153 ug/g (0-120)
== END | disposition home or self-care (01) ==
LOC: LABSPEC 10:01
PROVIDERS: PCP Family Medicine; Referring Provider Internal Medicine Gastroenterology; Visit Provider Internal Medicine Gastroenterology
DX: K51.90 Ulcerative colitis, unspecified, without complications (principal)
CPT/HCPCS: 83630; 83993

== ENCOUNTER → 2023-01-02 | Outpatient (CLI) | payer MEDICARE, SELFPAY | END | disposition home or self-care (01) | PROVIDERS: PCP Family Medicine; Visit Provider Family Medicine | DX: R30.0 Dysuria (principal) | CPT/HCPCS: 87086; 87088 ==

== ENCOUNTER → 2023-02-18 | Outpatient (CLI) | payer MEDICARE, SELFPAY ==
[2023-02-18 17:23] LABS: Absolute Lymphocyte Count 1.24 X10^3/uL (0.83-4.51); Absolute Neutrophil Count 2.1 X10^3/uL (2.0-7.7); Basophil# 0.04 X10^3/uL; Basophil% 1.1 % (0-1); Eosinophil# 0.04 X10^3/uL; Eosinophils% 1.1 % (0-5); Hematocrit 44.7 % (37-47); Hemoglobin 13.5 g/dL (12.0-15.0); Lymphocyte # 1.24 X10^3/ul (0.83-4.51); Lymphocyte % 32.6 % (19-41); Mean Corp Hgb Conc 30.2 g/dL (32-36); Mean Corpuscular Hgb 30.1 pg (27.0-32.0); Mean Corpuscular Volume 99.6 fL (81-99); Mean Platelet Vol. 10.7 fl (6.2-12.0); Monocyte# 0.34 X10^3/uL; Monocyte% 8.9 % (0-10); NRBC Flagged by Analyzer 0 % (0-5); Neutrophil # 2.13 X10^3/uL (2.7-7.7); Platelet Count 284 K/mm3 (150-450); RBC Distribution Width CV 15.4 % (11.6-14.6); RBC Distribution Width SD 56.4 fl (35.1-43.9); Red Blood Count 4.49 M/mm3 (4.2-5.4); White Blood Count 3.8 K/mm3 (4.4-11.0)
[2023-02-18 17:56] LABS: ALB/GLOB Ratio 0.9 RATIO (0.9-2.4); AST(SGOT) 17 U/L (15-37); Alanine Aminotransfer ALT/SGPT 19 U/L (13-56); Albumin, Serum 3.3 g/dL (3.2-5.0); Alkaline Phosphatase 84 U/L (45-117); Anion Gap 2 (5-15); BUN 10 mg/dL (7-18); BUN/Creat Ratio 14.5 RATIO (10-20); Calcium,Total 8.6 mg/dL (8.5-10.1); Chloride 106 mmol/L (98-107); Creatinine, Serum 0.69 mg/dL (0.55-1.02); EST Glomerular Filtration Rate 87 mL/min (>60); Est Glom Filt Rate - Afr Amer 106 mL/min (>60); Globulin 3.6 g/dL (2.2-4.2); Glucose 82 mg/dL (74-106); Potassium 3.9 mmol/L (3.5-5.1); Protein, Total 6.9 g/dL (6.4-8.2); Sodium Level 141 mmol/L (136-145)
== END | disposition home or self-care (01) ==
LOC: MTLAB 14:25
PROVIDERS: PCP Family Medicine; Referring Provider Internal Medicine Rheumatology; Visit Provider Internal Medicine Rheumatology
DX: L40.59 Other psoriatic arthropathy (principal); Z79.899 Other long term (current) drug therapy
CPT/HCPCS: 36415; 80053; 85025

== ENCOUNTER → 2023-05-19 | Outpatient (CLI) | payer MEDICARE, SELFPAY ==
--- OUTSIDE RECORDS SUMMARY | 2023-05-19 15:34 | XMS RPT_ITS | CCD ---
Author Name Unknown Address [address] [place] [address] Organization [facility] Care Team Providers Care Music Arranger Name Role Phone Raudel Miller Unavailable Unavailable Kristina Richard Unavailable Unavailable Deangelo Jeffries Unavailable Unavailable Kristina Richard Unavailable Unavailable Allergies Allergy Classification Reported Allergen(s) Allergy Type Date of Onset Reaction(s) Facility (1 source) Aspirin; Translations: [Aspirin TABS] Drug Allergy -Neurosurge [facility] Work Phone: (1 source) [facility] Work Phone: (1 source) Sulfonamides (Antibiotic) Allergy to drug (finding) [facility] Work Phone: Medications Completed/Discontinued Medications Medication Drug Class(es) Dates Sig (Normalized) Sig (Original) docusate sodium 100 mg oral capsule (1 source) Start: 12-22-2014 take 1 capsule by mouth twice daily Stool Softener 100 MG Oral Capsule TAKE 1 CAPSULE TWICE DAILY. Refills: 0 Deangelo Jeffries MD Start : 22-Dec-2014 Active estradiol 1 mg oral tablet (1 source) Estrogen Start: 02-04-2014 Estradiol 1 MG Oral Tablet Quantity: 90 Refills: 0 Start : 04-Feb-2014 Active fludrocortisone 0.1 mg oral tablet (1 source) Start: 12-03-2014 Fludrocortisone Acetate 0.1 MG Oral Tablet Quantity: 30 Refills: 0 Start : 03-Dec-2014 Active leucovorin 5 mg oral tablet (1 source) Folate Analog Start: 12-03-2014 Leucovorin Calcium 5 MG Oral Tablet Quantity: 30 Refills: 0 Start : 03-Dec-2014 Active omeprazole 40 mg delayed release oral capsule (1 source) Proton Pump Inhibitor Start: 02-04-2014 Omeprazole 40 MG Oral Capsule Delayed Release Quantity: 90 Refills: 0 Start : 04-Feb-2014 Active ondansetron 4 mg oral tablet (1 source) Serotonin-3 Receptor Antagonist Start: 12-03-2014 Ondansetron HCl - 4 MG Oral Tablet Quantity: 30 Refills: 0 Start : 03-Dec-2014 Active microencapsulated potassium chloride 20 meq extended release oral tablet (1 source) Start: 01-02-2015 Klor-Con M20 20 MEQ Oral Tablet Extended Release Quantity: 30 Refills: 0 Start : 02-Jan-2015 Active traMADol hydrochloride 50 mg oral tablet (1 source) Opioid Agonist Start: 02-21-2014 traMADol HCl - 50 MG Oral Tablet Quantity: 30 Refills: 0 Start : 21-Feb-2014 Active Problems Active Problems Problem Classification Problem Date Documented Date Episodic/Chronic Acute cerebrovascular disease (1 source) Cerebrovascular accident; Translations: [Ruptured aneurysm of intracranial artery] Chronic Open wounds of head; neck; and trunk (1 source) Open wound of scalp with complication; Translations: [Open wound of scalp, complicated] Episodic Osteoarthritis (1 source) Arthritis; Translations: [Arthritis] Chronic Residual codes; unclassified (1 source) H/O: surgery; Translations: [Status post laparotomy] Episodic 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 / I60.7(ICD-10) Onset: 11-24-2017 Past or Other Problems Problem Classification Problem Date Documented Da te Episodic/Chronic Unclassified (1 source) 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; Translations: [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] Onset: 11-24-2017 Results Test Name Value Interpretation Reference Range Facil ity Encounters Encounter Date Encounter Type Care Provider Facility Start: 11-24-2017 Patient encounter Raudel dahl [facility] Facility:[facility] Procedures Date Procedure Procedure Detail Performing Clinician Appendectomy Deangelo Jeffries History of Bladder Surgery R ayyuniel Noécandy End: 12-29-2014 History of Complex Repair Of Wound Scalp Deangelo Jeffries History of Cranioplasty Raym ond Onders Hysterectomy Deangelo Oncandy Total knee replacement Raymo nd Oncandy Total replacement of hip Ray monevelin Onders Payers Date Payer Category Payer Policy ID Private Health Insurance [id number] Social History Date Type Detail Facility Assertion Tobacco smoking consumption unknown (finding) [facility] Work Phone: Functional Status Date Assessment Result Facility NEGATED: Highlighted row Functional performance Functional status health issues are not documented Disease [facility] Work Phone: Mental Status Date Assessment Result Facility NEGATED: Highlighted row Cognitive function [Interpretation] Cognitive status health issues are not documented Disease [facility] Work Phone: Summary Purpose Family History No Family History Records Found Advance Directives No Advanced Directives Records Found Additional Source Comments INFORMATION SOURCE (unrecogn ized section and content) FOR RECORDS PERTAINING TO PATIENTS WHO ARE OR HAVE BEEN ENROLLED IN A CHEMICAL DEPENDENCY/SUBSTANCEABUSE PROGRAM, SOME INFORMATION MAY BE OMITTED. This clinical summary was aggregated from multiple sources. Caution should be exercised in using it in the provision of clinical care. This summary normalizes information from multiple sources, and as a consequence, information in this document may materially change the coding, format and clinical context of patient data. In addition, data may be omitted in some cases. CLINICAL DECISIONS SHOULD BE BASED ON THE PRIMARY CLINICAL RECORDS. [facility] [employer] [facility]. provides no warranty or guarantee of the accuracy or completeness of information in this document.
[2023-05-19 17:39] LABS: Absolute Lymphocyte Count 1.17 X10^3/uL (0.83-4.51); Absolute Neutrophil Count 2.2 X10^3/uL (2.0-7.7); Basophil# 0.03 X10^3/uL; Basophil% 0.8 % (0-1); Eosinophil# 0.03 X10^3/uL; Eosinophils% 0.8 % (0-5); Hematocrit 45.5 % (37-47); Hemoglobin 13.5 g/dL (12.0-15.0); Lymphocyte # 1.17 X10^3/ul (0.83-4.51); Lymphocyte % 30.9 % (19-41); Mean Corp Hgb Conc 29.7 g/dL (32-36); Mean Corpuscular Hgb 29.2 pg (27.0-32.0); Mean Corpuscular Volume 98.3 fL (81-99); Mean Platelet Vol. 10.4 fl (6.2-12.0); Monocyte# 0.32 X10^3/uL; Monocyte% 8.4 % (0-10); NRBC Flagged by Analyzer 0 % (0-5); Neutrophil # 2.23 X10^3/uL (2.7-7.7); Neutrophil % 58.8 % (47-70); Platelet Count 300 K/mm3 (150-450); RBC Distribution Width CV 15.3 % (11.6-14.6); RBC Distribution Width SD 55.1 fl (35.1-43.9); Red Blood Count 4.63 M/mm3 (4.2-5.4); White Blood Count 3.8 K/mm3 (4.4-11.0)
[2023-05-19 18:06] LABS: ALB/GLOB Ratio 0.9 RATIO (0.9-2.4); AST(SGOT) 23 U/L (15-37); Alanine Aminotransfer ALT/SGPT 19 U/L (13-56); Albumin, Serum 3.4 g/dL (3.2-5.0); Alkaline Phosphatase 87 U/L (45-117); Anion Gap 5 (5-15); BUN 13 mg/dL (7-18); BUN/Creat Ratio 17.9 RATIO (10-20); Calcium,Total 8.5 mg/dL (8.5-10.1); Chloride 105 mmol/L (98-107); Creatinine, Serum 0.73 mg/dL (0.55-1.02); EST Glomerular Filtration Rate 83 mL/min (>60); Est Glom Filt Rate - Afr Amer 100 mL/min (>60); Globulin 3.7 g/dL (2.2-4.2); Glucose 90 mg/dL (74-106); Potassium 3.6 mmol/L (3.5-5.1); Protein, Total 7.1 g/dL (6.4-8.2); Sodium Level 141 mmol/L (136-145)
== END | disposition home or self-care (01) ==
LOC: MTLAB 14:12
PROVIDERS: PCP Family Medicine; Referring Provider Internal Medicine Rheumatology; Visit Provider Internal Medicine Rheumatology
DX: L40.59 Other psoriatic arthropathy (principal); Z79.899 Other long term (current) drug therapy
CPT/HCPCS: 36415; 80053; 85025

== ENCOUNTER → 2023-08-13 | Outpatient (CLI) | payer MEDICARE, SELFPAY ==
[2023-08-13 17:58] LABS: Absolute Lymphocyte Count 1.15 X10^3/uL (0.83-4.51); Absolute Neutrophil Count 1.9 X10^3/uL (2.0-7.7); Basophil# 0.04 X10^3/uL; Basophil% 1.1 % (0-1); Eosinophil# 0.05 X10^3/uL; Eosinophils% 1.4 % (0-5); Hematocrit 43.2 % (37-47); Hemoglobin 13.2 g/dL (12.0-15.0); Lymphocyte # 1.15 X10^3/ul (0.83-4.51); Mean Corp Hgb Conc 30.6 g/dL (32-36); Mean Corpuscular Hgb 29.6 pg (27.0-32.0); Mean Corpuscular Volume 96.9 fL (81-99); Mean Platelet Vol. 10.6 fl (6.2-12.0); Monocyte# 0.34 X10^3/uL; Monocyte% 9.7 % (0-10); NRBC Flagged by Analyzer 0 % (0-5); Neutrophil % 54.5 % (47-70); Platelet Count 293 K/mm3 (150-450); RBC Distribution Width CV 15.2 % (11.6-14.6); RBC Distribution Width SD 54.4 fl (35.1-43.9); Red Blood Count 4.46 M/mm3 (4.2-5.4); White Blood Count 3.5 K/mm3 (4.4-11.0)
[2023-08-13 19:01] LABS: AST(SGOT) 17 U/L (15-37); Alanine Aminotransfer ALT/SGPT 14 U/L (13-56); Albumin, Serum 3.4 g/dL (3.2-5.0); Alkaline Phosphatase 81 U/L (45-117); Anion Gap 3 (5-15); BUN 13 mg/dL (7-18); BUN/Creat Ratio 17.2 RATIO (10-20); Calcium,Total 8.8 mg/dL (8.5-10.1); Chloride 105 mmol/L (98-107); Creatinine, Serum 0.75 mg/dL (0.55-1.02); EST Glomerular Filtration Rate 79 mL/min (>60); Est Glom Filt Rate - Afr Amer 96 mL/min (>60); Globulin 3.5 g/dL (2.2-4.2); Glucose 88 mg/dL (74-106); Potassium 3.9 mmol/L (3.5-5.1); Protein, Total 6.9 g/dL (6.4-8.2); Sodium Level 141 mmol/L (136-145)
== END | disposition home or self-care (01) ==
LOC: MTLAB 15:32
PROVIDERS: PCP Family Medicine; Referring Provider Internal Medicine Rheumatology; Visit Provider Internal Medicine Rheumatology
DX: L40.59 Other psoriatic arthropathy (principal); M16.0 Bilateral primary osteoarthritis of hip; M21.40 Flat foot [pes planus] (acquired), unspecified foot; M47.897 Other spondylosis, lumbosacral region; H47.293 Other optic atrophy, bilateral; H40.019 Open angle with borderline findings, low risk, unspecified eye; H53.461 Homonymous bilateral field defects, right side; H43.819 Vitreous degeneration, unspecified eye; Z79.899 Other long term (current) drug therapy
CPT/HCPCS: 36415; 80053; 85025

== ENCOUNTER 2023-09-03 22:03 | Emergency (ER) | payer MEDICARE, SELFPAY ==
[2023-09-03] VITALS (7 sets, daily range): BP systolic 138–176; BP diastolic 88–102; PULSE 76–95; RESP 12–23; TEMP 37.1; O2SAT 88–95; BMI 40.4
--- NOTE | 2023-09-03 22:25 | EKG12_ITS ---
Test Reason : DYSRHYTHMIA Blood Pressure : / mmHG Vent. Rate : 092 BPM Atrial Rate : 092 BPM P-R Int : 170 ms QRS Dur : 084 ms QT Int : 384 ms P-R-T Axes : 028 -32 032 degrees QTc Int : 474 ms Normal sinus rhythm Left axis deviation Minimal voltage criteria for LVH, may be normal variant ( R in aVL ) Abnormal ECG Confirmed by JOANNE DE OLIVEIRA, KAITLYN ([id number]), video effects editor DANIELLE VIEYRA ([id number]) on 09/08/2023 10:08:45 AM Referred By: JOSE R Confirmed By:VALE RUBIO MD
--- NOTE | 2023-09-03 22:43 | CT_ITS ---
STUDY: CT BRAIN WITHOUT CONTRAST REASON FOR EXAM: Female, 77 years old. Headache / ? Ruptured aneurysm RADIATION DOSAGE (If Supplied By Facility): CTDIvol = ( 44.99 ) mGy, DLP = ( 796.11 ) mGycm TECHNIQUE: Transaxial CT imaging of the brain was performed without administration of intravenous contrast material. Individualized dose optimization techniques were used for this CT. COMPARISON: November 19, 2021 FINDINGS: Normal soft tissue structures. There is right frontotemporal craniotomy. There is left frontal yuri hole. There is right supraclinoid aneurysm clip. There is left temporomandibular arthrosis. There is mild cerebral atrophy with widening of the extra-axial spaces and ventricular dilatation. There are areas of decreased attenuation within the white matter tracts of the supratentorial brain, consistent with microvascular disease changes. There is right frontotemporal volume loss and encephalomalacia. Normal basal ganglia and thalami. Normal brainstem. Normal cerebellum. There is no intracranial hemorrhage. There are no findings of an acute ischemic infarction. Normal visualized paranasal sinuses. CT/Brain/Head without Contrast IMPRESSION: Chronic involutional and postoperative changes of the brain. Electronically Signed: Alex Virgen MD at 23:37 EDT ,
[2023-09-03 22:53] LABS: Absolute Lymphocyte Count 0.58 X10^3/uL (0.83-4.51); Absolute Neutrophil Count 2.7 X10^3/uL (2.0-7.7); Basophil# 0.02 X10^3/uL; Basophil% 0.5 % (0-1); Eosinophil# 0.01 X10^3/uL; Eosinophils% 0.3 % (0-5); Hematocrit 43.3 % (37-47); Hemoglobin 13.5 g/dL (12.0-15.0); Lymphocyte # 0.58 X10^3/ul (0.83-4.51); Lymphocyte % 15.9 % (19-41); Mean Corp Hgb Conc 31.2 g/dL (32-36); Mean Corpuscular Hgb 29.3 pg (27.0-32.0); Mean Corpuscular Volume 94.1 fL (81-99); Mean Platelet Vol. 10.4 fl (6.2-12.0); Monocyte# 0.33 X10^3/uL; Monocyte% 9.1 % (0-10); NRBC Flagged by Analyzer 0 % (0-5); Neutrophil # 2.69 X10^3/uL (2.7-7.7); Neutrophil % 73.9 % (47-70); POSITIVE DIFFERENTIAL YES; Platelet Count 240 K/mm3 (150-450); RBC Distribution Width CV 15.3 % (11.6-14.6); RBC Distribution Width SD 52.5 fl (35.1-43.9); White Blood Count 3.6 K/mm3 (4.4-11.0)
[2023-09-03] MEDS: Morphine 4 MG/ML Syringe IV (22:54)
[2023-09-03] MEDS: Ondansetron 4 MG/2 ML Vial IV (22:54)
[2023-09-03] MEDS: Labetalol (Prefilled) 20 MG/4 ML 10 MG IV (22:54)
[2023-09-03 23:03] LABS: International Normalized Ratio 1.2; Prothrombin Time (Protime)PT. 14.7 SECONDS (11.7-14.9)
[2023-09-03 23:04] LABS: Partial Thromboplast Time 34.2 Seconds (24.1-36.2)
--- NOTE | 2023-09-03 23:13 | EX.ED.DYSGE1 ---
HPI History of Present Illness Chief Complaint: Headache Informant: patient, family and EMS Narrative Narrative: Patient is a 77-year-old female with past medical history of rheumatoid arthritis currently on methotrexate as well as history of brain aneurysm requiring coiling/clips. She states that she awoke this morning and noticed a mild frontal headache. She states she was able to go about her day and the headache seemed to improve slightly but not go away. She states roughly 2 hours prior to arrival she had spontaneous worsening of the headache. She states it is sharp in nature and located along the frontal/parietal portion of the scalp. She does state that she has had a few days of mild congestion and drainage and cough. However she denies any fevers or chills. She denies any recent trauma and she states she does not take any type of blood thinner not even an aspirin nor does she have a history of bleeding disorder. However with her previous history of aneurysm requiring coiling and her worsening headache she was brought in for evaluation. [facility] Medical History Arthritis Back pain Brain aneurysm Gastric reflux GERD (gastroesophageal reflux disease) History of pain when walking History of rheumatic fever Leg cramps Migraine headache Non-smoker Post-menopausal Rash Rectal bleeding Restless legs Rheumatoid arthritis Shortness of breath on exertion Wears glasses Home Medications Omeprazole [Prilosec] 40 mg PO DAILY 10/21/14 [History Last Taken Unknown] cranberry concentrate-ascorbic acid 6,000 mg-100 mg capsule 15,000 cap PO DAILY 10/21/14 [History Last Taken Unknown] folic acid 1 mg tablet 2 mg PO DAILY@0800 10/21/14 [History Last Taken Unknown] Potassium 1 tab PO PRN PRN LOW K+ 07/27/21 [History Last Taken Unknown] cholecalciferol (vitamin D3) 25 mcg (1,000 unit) capsule 25 mcg PO DAILY 07/27/21 [History Last Taken Unknown] conjugated estrogens 0.625 mg/gram vaginal cream (Premarin) 1.25 mg vaginal QWEEK 07/27/21 [History Last Taken Unknown] methotrexate sodium 2.5 mg tablet See Rx Instructions .Route .COMPLEX 07/27/21 [History Last Taken Unknown] nortriptyline 25 mg capsule 25 mg PO QHS 07/27/21 [History Last Taken Unknown] tramadol 100 mg capsule 24h,extended release(25-75) (ConZip) 50 mg PO .QID PRN Pain 07/27/21 [History Last Taken Unknown] zinc 50 mg tablet 50 mg PO QODAY 07/27/21 [History Last Taken Unknown] calcium carbonate (Calcium 600) 1,200 mg PO DAILY 08/20/21 [History Last Taken Unknown] latanoprost 0.005 % eye drops 1 drp EACH EYE QHS 08/20/21 [History Last Taken Unknown] loratadine 10 mg tablet 10 mg PO DAILY 08/20/21 [History Last Taken Unknown] Lactobacillus acidophilus and rhamnosus 15 billion cell capsule (Probiotic) 1 cap PO DAILY 10/31/22 [History Last Taken Unknown] balsalazide 750 mg capsule See Rx Instructions .Route .COMPLEX #180 caps 11/18/22 [Rx Last Taken Unknown] Allergy/AdvReac Type Severity Reaction Status Date / Time aspirin Allergy Unknown Verified 09/03/23 22:08 codeine Allergy Unknown Verified 09/03/23 22:08 Sulfa (Sulfonamide Allergy Unknown Verified 09/03/23 22:08 Antibiotics) Family History Father Cancer bladder Mother Heart disease Surgical History Hx of appendectomy Hx of arthroscopic knee surgery Hx of arthroscopy of shoulder Hx of bladder repair surgery Hx of brain surgery Hx of breast biopsy Hx of hysterectomy Hx of total hip arthroplasty Social History Smoking Status: Never smoker alcohol intake: never substance use type: does not use what type of physical activity do you participate in: none ROS ROS ED Constitutional Constitutional ED: Denies chills or fever(s) Eyes Eyes: Denies blurry vision or change in vision ENT ENT ED: Reports rhinorrhea and sore throat; Denies ear pain Cardiovascular Cardiovascular: Denies chest pain Respiratory/Chest Respiratory/Chest: Reports cough; Denies dyspnea Gastrointestinal Gastrointestinal: Reports nausea; Denies abdominal pain, diarrhea or vomiting Genitourinary Genitourinary ED: Denies dysuria Musculoskeletal Musculoskeletal: Denies myalgias or neck pain Integumentary Denies rash Neurologic Neurologic: Reports headache(s); Denies paresthesias or weakness Hematologic/Lymphatic Hematologic/Lymphatic: Denies easy bleeding or easy bruising EXAM Physical Exam Const Vital Signs: 09/03/23 22:04 09/03/23 22:55 09/03/23 23:05 Temperature 98.7 F Temperature Source Oral Pulse Rate 95 Respiratory Rate 19 H Blood Pressure 176/96 H Blood Pressure Mean 122 Pulse Ox 95 88 95 Oxygen Delivery Method Room Air Room Air Nasal Cannula Oxygen Flow Rate (L/min) 4 09/03/23 22:30 09/03/23 22:53 09/03/23 23:00 Temperature Temperature Source Pulse Rate 90 76 Respiratory Rate 23 H 13 Blood Pressure 169/102 H 168/99 H 138/92 H Blood Pressure Mean 123 118 108 Pulse Ox 94 91 Oxygen Delivery Method Oxygen Flow Rate (L/min) 09/03/23 23:15 09/04/23 00:00 09/04/23 02:00 Temperature 97.2 F L Temperature Source Temporal Pulse Rate 76 80 88 Respiratory Rate 12 16 16 Blood Pressure 160/88 H 164/92 H 169/91 H Blood Pressure Mean 108 116 117 Pulse Ox 95 99 94 Oxygen Delivery Method Room Air Oxygen Flow Rate (L/min) Positive well nourished and well developed General Appearance ED: well developed; Negative for pallor HEENT HEENT Narrative: Normocephalic atraumatic Eyes PERRL and EOMs intact bilaterally General Eye ED: Negative for scleral icterus Neck supple Neck Narrative: No nuchal rigidity or meningeal signs Resp normal respiratory effort and clear to auscultation bilaterally Cardio regular rate and regular rhythm Rate: other Other Details: Heart is regular rate and rhythm without murmurs rubs or gallops Radial and carotid pulses equal and symmetric GI normal to inspection, nondistended, normoactive bowel sounds, non-tender, non-distended and no masses GI Narrative: No voluntary guarding or rigidity or pulsatile mass Auscultation: normoactive bowel sounds Palpation: soft Extremity normal to inspection Neuro oriented x3, CN's II-XII intact bilaterally and no sensory deficits noted Neuro Narrative: Cranial nerves II through XII are grossly intact there are no focal neurologic deficits The patient does have the inability to raise the right side of her forehead which is chronic in nature secondary to her previous aneurysm. No pronator drift no dysmetria no truncal ataxia NIH stroke scale score of 0 Sensorium / Orientation: alert Motor Exam: strength 5/5 throughout Psych mental status grossly normal Skin no rashes or lesions noted and no wounds General Skin Exam: Negative for jaundice or pallor MDM MDM MDM Narrative Medical decision making narrative: Patient arrived to the ER hypertensive but otherwise with stable vitals. She reported a headache that was present upon wakening and never completely resolved throughout the day. However the headache reportedly worsened quickly roughly 2 hours prior to arrival. Differential diagnosis is for spontaneous brain bleed such as subarachnoid hemorrhage versus infective headache such as RSV versus COVID versus influenza. There is concern for potential meningitis leading to the headache as well. Basic blood work was obtained and the patient had a noncontrast CT ordered upon arrival secondary to concern for brain bleed. Head CT was negative for acute findings and laboratory studies revealed no clinically significant changes other than her viral swab being positive for RSV. The patient had a CTA obtained in order to ensure that there was no signs of ischemia or secondary issue such as cavernous sinus vein thrombosis based on her headache and viral symptoms. CTA was also normal. On reevaluation she is awake and alert with normal neurologic exam. As we have a reason for her headache with her viral infection of RSV and she does not have signs of acute bleed I do not feel there is need to keep her in the hospital. Plan of care was discussed with patient and family and they are agreeable to it and therefore she will be discharged at this time History & Record Review Discussion w/independent historian: Patient and Family Lab Data Attestation: I reviewed the patient's lab results. Labs: Laboratory Results - last 24 hr 09/03/23 22:07 WBC 3.6 L RBC 4.60 Hgb 13.5 Hct 43.3 MCV 94.1 MCH 29.3 MCHC 31.2 L RDW Std Deviation 52.5 H RDW Coeff of Gui 15.3 H Plt Count 240 MPV 10.4 Immature Gran % (Auto) 0.300 Neut % (Auto) 73.9 H Lymph % (Auto) 15.9 L [place] % (Auto) 9.1 Eos % (Auto) 0.3 Baso % (Auto) 0.5 Absolute Neuts (auto) 2.7 Absolute Lymphs (auto) 0.58 L Nucleated RBC % 0 Differential Comment SEE COMMENT Platelet Estimate ADEQUATE RBC Morphology N CHROM Anisocytosis RARE Macrocytosis RARE PT 14.7 INR 1.2 APTT 34.2 Sodium 135 L Potassium 3.8 Chloride 101 Carbon Dioxide 29.0 Anion Gap 5 BUN 9 Creatinine 0.51 L Estim Creat Clear Calc 62.77 Est GFR (MDRD) Af Amer 152 Est GFR (MDRD) Non-Af 125 BUN/Creatinine Ratio 17.8 Glucose 109 H Calcium 8.5 Radiography Diagnostic Testing: Clinical Impression(s) from Imaging Studies Brain CT 09/03/23 22:43 IMPRESSION: Chronic involutional and postoperative changes of the brain. Electronically Signed: Alex Virgen MD at 23:37 EDT , Chest X-Ray 09/04/23 00:01 IMPRESSION: No acute pulmonary finding. Electronically Signed: Kenton Rhoades MD at 1:02 EDT , Head CTA 09/04/23 23:59 IMPRESSION: Negative CTA Brain with and without contrast. Electronically Signed: Kenton Rhoades MD at 1:19 EDT , Chest x-ray as interpreted by the emergency medicine physician reveals no acute infiltrate pneumothorax or pleural effusion Discharge Plan Triage Chief Complaint: Headache ED Provider: Bryan Blackmon Dx/Rx/DC Orders Clinical Impression: Cephalgia, RSV infection, Rheumatoid arthritis Instructions: RSV (Respiratory Syncytial Virus), ED Headache Unspecified Prescriptions: No Action zinc 50 mg tablet 50 mg PO QODAY Premarin 0.625 mg/gram cream 1.25 mg vaginal QWEEK Rx Instructions: off 5 days; repeat cycle cholecalciferol (vitamin D3) 25 mcg (1,000 unit) capsule 25 mcg PO DAILY nortriptyline 25 mg capsule 25 mg PO QHS Potassium 99 mg tablet 1 tab PO PRN PRN (Reason: LOW K+) balsalazide 750 mg capsule See Rx Instructions .ROUTE .COMPLEX Qty: 180 3RF Dose Instruction: TAKE 1 CAPSULE TWICE DAILY Rx Instructions: TAKE 1 CAPSULE TWICE DAILY folic acid 1 MG tablet 2 mg PO DAILY@0800 cranberry conc-ascorbic acid 1 EACH capsule 15,000 cap PO DAILY Omeprazole [Prilosec] 40 MG capsule 40 mg PO DAILY tramadol [ConZip] 100 mg capsule,ER biphase 24 hr 25-75 50 mg PO .QID PRN (Reason: Pain) methotrexate sodium 2.5 mg tablet See Rx Instructions .ROUTE .COMPLEX Rx Instructions: 6 tabs PO QWEEK-TAKES ON FRIDAY latanoprost 0.005 % drops 1 drp EACH EYE QHS calcium carbonate [Calcium 600] 600 mg calcium (1,500 mg) Tablet 1,200 mg PO DAILY loratadine 10 mg Tablet 10 mg PO DAILY Probiotic 15 billion cell Capsule 1 cap PO DAILY Primary Care Provider: Kristina Richard Referrals: Kristina Richard MD [Primary Care Provider] - Activity Restrictions/Additional Instructions: Your workup today showed no signs of acute brain bleed or lack of blood flow and you did test positive for RSV which is most likely the cause of your symptoms. This is a virus which will need to run its course. Continue all of your home medications as directed by your doctor continue with Tylenol and/or Motrin for headache and fever control and return to the ER should you have any further concerns Disposition Disposition: Home, Self Care
[2023-09-03 23:14] LABS: Anion Gap 5 (5-15); BUN 9 mg/dL (7-18); BUN/Creat Ratio 17.8 RATIO (10-20); Calcium,Total 8.5 mg/dL (8.5-10.1); Chloride 101 mmol/L (98-107); Creatinine, Serum 0.51 mg/dL (0.55-1.02); EST Glomerular Filtration Rate 125 mL/min (>60); Est Glom Filt Rate - Afr Amer 152 mL/min (>60); Estimated Creatinine Clearance 62.77 ml/min; Glucose 109 mg/dL (74-106); Potassium 3.8 mmol/L (3.5-5.1); Sodium Level 135 mmol/L (136-145)
[2023-09-03 23:17] LABS: Differential Indicated SCAN CRITERIA MET
[2023-09-03 23:18] LABS: Platelet Estimate ADEQUATE (ADEQ)
[2023-09-03 23:19] LABS: Anisocytosis RARE; Macrocytosis RARE; Red Cell Morphology N CHROM NORMAL (NORM C&C)
--- NOTE | 2023-09-03 23:31 | ED.RN ---
MD made aware that pt bp elevated back up to 160's systolic. Observe at this time.
[2023-09-04] VITALS: BP 164/92; PULSE 80; RESP 16; O2SAT 99
--- NOTE | 2023-09-04 00:01 | RAD_ITS ---
INDICATION: cough EXAMINATION/TECHNIQUE: X-RAY - XR Chest 1 View COMPARISON: 05/13/2012 FINDINGS: LINES/DEVICES: None. LUNGS: The lungs are well expanded. No consolidation, edema or effusion. No pneumothorax. MEDIASTINUM AND CARDIOVASCULAR STRUCTURES: Cardiac silhouette not enlarged. Central airways and mediastinal contour are unremarkable. BONES AND SOFT TISSUES: No acute osseous abnormalities. RAD/Chest 1 View (Portable) IMPRESSION: No acute pulmonary finding. Electronically Signed: Kenton Rhoades MD at 1:02 EDT ,
[2023-09-04 02:00] VITALS: BP 169/91; PULSE 88; RESP 16; TEMP 36.2; O2SAT 94
[2023-09-04 02:03] VITALS: BP 169/91; PULSE 88; RESP 16; TEMP 36.2; O2SAT 94
--- NOTE | 2023-09-04 23:59 | CT_ITS ---
INDICATION: headache EXAMINATION: CTA BRAIN WITH AND WITHOUT CONTRAST - CT Head or Brain WO/W Contrast Injection TECHNIQUE: Multiple axial images were obtained of the brain with and without IV contrast. A radiation dose optimization technique was used for this scan. IV Contrast dosage and agent: 100 mL Isovue-370 RADIATION DOSAGE (If Supplied By Facility): CTDIvol = ( 18.28 ) mGy, DLP = ( 456.96 ) mGycm COMPARISON: No relevant prior comparison study available FINDINGS: VASCULAR --Anterior cerebral circulation: ICAs: Aneurysm clip adjacent to the right paraclinoid ICA. No hemodynamically significant stenosis. ACAs: No hemodynamically significant stenosis. ACOM: Present. MCAs: No hemodynamically significant stenosis. --Posterior cerebral circulation: career placement specialist: No hemodynamically significant stenosis. BASILAR ARTERY: No hemodynamically significant stenosis. VERTEBRAL ARTERIES: No hemodynamically significant stenosis. BRAIN PARENCHYMA: No intra- or extra-axial hemorrhage. No evidence of acute infarct. No intracranial mass or mass effect. There is preservation of the issa/white matter interface. Posterior fossa structures are unremarkable. No abnormal contrast enhancement. CSF SPACES: Appropriate for age. No hydrocephalus. Basal cisterns are patent. CALVARIUM, SKULL BASE, PARANASAL SINUSES AND MASTOID AIR CELLS: Clear. No discrete lytic or blastic abnormalities. ORBITS: Both globes, extraocular muscles, optic nerves and retrobulbar fat appear unremarkable. ASPECTS Score for Acute Strokes: 10 CT/CTA Head W/WO Contrast IMPRESSION: Negative CTA Brain with and without contrast. Electronically Signed: Kenton Rhoades MD at 1:19 EDT ,
== END 2023-09-04 02:05 | disposition home or self-care (01) ==
PROVIDERS: Emergency Provider Emergency Medicine; PCP Family Medicine; Visit Provider Emergency Medicine
DX: R51.9 Headache, unspecified (principal); M06.9 Rheumatoid arthritis, unspecified; B97.4 Respiratory syncytial virus as the cause of diseases classified elsewhere
CPT/HCPCS: 70450; 70496; 71045; 80048; 85025; 85610; 85730; 87631; 93005; 96374; 96375; 99283; Q9967; A4216; J2405

== ENCOUNTER → 2023-11-04 | Outpatient (CLI) | payer MEDICARE, SELFPAY ==
--- NOTE | 2023-11-04 12:48 | BI_ITS ---
MAMMOGRAPHY - BILATERAL SCREENING REASON FOR EXAM: Female, 77 years old. Routine annual screening examination. PERTINENT HISTORY: Non-contributory. Remote left excisional breast biopsy. TECHNIQUE: Digital bilateral breast jinny (3D mammographic acquisition) in the CC and MLO projections. 2-D mediolateral oblique (MLO) and craniocaudad (CC) views of both breasts were obtained. CAD: Full Field Digital Mammography with Computer Added Detection was performed. COMPARISON: Comparison is made with prior study September 16, 2022 and July 26, 2021. FINDINGS: Breast Composition: The breasts are heterogeneously dense, which may obscure small masses. There are no dominant masses or suspicious calcifications. Stable small benign-appearing bilateral axillary lymph nodes. No other significant abnormalities are identified. There has been no significant change since the prior study. BI/SCRN MAMM (CAD)W/JINNY BILAT IMPRESSION: Stable bilateral screening mammogram. Yearly follow-up mammogram recommended. (A) ASSESSMENT CATEGORY: BIRADS Category 2: Benign. A letter regarding these results will be sent to the patient by the facility within 30 days. Approximately 10% of breast cancers are not detected by mammography. A normal mammogram should not delay biopsy of a clinically suspicious abnormality. [id number] Electronically Signed: Anthony Mercer MD at 8:14 EDT ,
--- NOTE | 2023-11-04 12:51 | BD_ITS ---
STUDY: DUAL ENERGY X-RAY ABSORPTIOMETRY / DXA REASON FOR EXAM: Female, 77 years old. [id number] TECHNIQUE: Bone Mineral Density (BMD) measurements of lumbar spine and left hip were obtained. COMPARISON: Comparison is made with prior study dated July 25, 2020. FINDINGS: Lumbar Spine (L1-L4): g/cm2 (1.262) / T-score (2.0) / Z-score (4.5) Findings are suggestive of normal bone density with a low fracture risk. Left Femur Total: g/cm2 (0.860) / T-score (-0.7) / Z-score (1.3) Left Femoral Neck: g/cm2 (0.687) / T-score (-1.5) / Z-score (0.7) The T-Scores on the most recent prior examination were: Lumbar Spine (L1-L4): There has been worsening of bone density since the previous examination. Left Femur Total: which represents a worsening of 13.2%. BD/Dexa Bone Density Study IMPRESSION: The patient is considered osteopenic as outlined below according to World [place] Organization (WHO) criteria with a low fracture risk. There has been worsening of bone density since the previous examination. Reference Information: The T-score is the number of standard deviations above or below the standard which is normal for young adults at their peak bone mineral density. The World Health Organization (WHO) interprets the T-scores as follows: Above -1 Normal bone density Between -1 and -2.5 Osteopenia Equal to / or below -2.5 Osteoporosis As a practical clinical guideline, osteopenia may be graded as follows: Mild -1 through -1.5 Moderate -1.6 through -2.0 Severe -2.1 through -2.4 The Z-score is the number of standard deviations above or below age-matched controls. A Z-score of less than -1.5 would be considered abnormal. References: 1. NIH Osteoporosis and Related Bone Diseases www osteo.org 2. International Society for Clinical Densitometry www iscd.org 3. National Osteoporosis Foundation www nof.org Electronically Signed: Anthony Mercer MD at 14:52 EDT ,
== END | disposition home or self-care (01) ==
LOC: OPBD 12:46
PROVIDERS: PCP Family Medicine; Referring Provider Family Medicine; Visit Provider Family Medicine
DX: Z12.31 Encounter for screening mammogram for malignant neoplasm of breast (principal); N95.9 Unspecified menopausal and perimenopausal disorder
CPT/HCPCS: 77063; 77067; 77080

== ENCOUNTER → 2023-11-27 | Outpatient (CLI) | payer MEDICARE, SELFPAY ==
[2023-11-27 12:24] LABS: Absolute Lymphocyte Count 1.17 X10^3/uL (0.83-4.51); Absolute Neutrophil Count 2.2 X10^3/uL (2.0-7.7); Basophil# 0.05 X10^3/uL; Basophil% 1.3 % (0-1); Eosinophil# 0.06 X10^3/uL; Eosinophils% 1.6 % (0-5); Hematocrit 43.5 % (37-47); Hemoglobin 13.3 g/dL (12.0-15.0); Lymphocyte # 1.17 X10^3/ul (0.83-4.51); Lymphocyte % 30.7 % (19-41); Mean Corp Hgb Conc 30.6 g/dL (32-36); Mean Corpuscular Hgb 29.4 pg (27.0-32.0); Mean Corpuscular Volume 96.2 fL (81-99); Mean Platelet Vol. 10.5 fl (6.2-12.0); Monocyte# 0.36 X10^3/uL; Monocyte% 9.4 % (0-10); NRBC Flagged by Analyzer 0 % (0-5); Neutrophil # 2.16 X10^3/uL (2.7-7.7); Neutrophil % 56.7 % (47-70); Platelet Count 266 K/mm3 (150-450); RBC Distribution Width CV 15.7 % (11.6-14.6); RBC Distribution Width SD 55.8 fl (35.1-43.9); Red Blood Count 4.52 M/mm3 (4.2-5.4); White Blood Count 3.8 K/mm3 (4.4-11.0)
[2023-11-27 12:47] LABS: ALB/GLOB Ratio 0.9 RATIO (0.9-2.4); AST(SGOT) 18 U/L (15-37); Alanine Aminotransfer ALT/SGPT 16 U/L (13-56); Albumin, Serum 3.4 g/dL (3.2-5.0); Alkaline Phosphatase 75 U/L (45-117); Anion Gap 5 (5-15); BUN 13 mg/dL (7-18); Chloride 104 mmol/L (98-107); Creatinine, Serum 0.65 mg/dL (0.55-1.02); EST Glomerular Filtration Rate 94 mL/min (>60); Est Glom Filt Rate - Afr Amer 113 mL/min (>60); Globulin 3.7 g/dL (2.2-4.2); Glucose 76 mg/dL (74-106); Potassium 3.5 mmol/L (3.5-5.1); Protein, Total 7.1 g/dL (6.4-8.2); Sodium Level 139 mmol/L (136-145)
== END | disposition home or self-care (01) ==
PROVIDERS: PCP Family Medicine; Referring Provider Internal Medicine Rheumatology; Visit Provider Internal Medicine Rheumatology
DX: L40.59 Other psoriatic arthropathy (principal); M16.0 Bilateral primary osteoarthritis of hip; M21.40 Flat foot [pes planus] (acquired), unspecified foot; M47.897 Other spondylosis, lumbosacral region; H47.293 Other optic atrophy, bilateral; H40.019 Open angle with borderline findings, low risk, unspecified eye; H53.461 Homonymous bilateral field defects, right side; H43.819 Vitreous degeneration, unspecified eye; Z79.899 Other long term (current) drug therapy
CPT/HCPCS: 36415; 80053; 85025

== ENCOUNTER → 2024-02-20 | Outpatient (CLI) | payer MEDICARE, SELFPAY ==
[2024-02-20 17:58] LABS: Absolute Lymphocyte Count 1.11 X10^3/uL (0.83-4.51); Absolute Neutrophil Count 2.3 X10^3/uL (2.0-7.7); Basophil# 0.04 X10^3/uL; Eosinophil# 0.04 X10^3/uL; Hematocrit 44.1 % (37-47); Hemoglobin 13.6 g/dL (12.0-15.0); Lymphocyte # 1.11 X10^3/ul (0.83-4.51); Lymphocyte % 28.2 % (19-41); Mean Corp Hgb Conc 30.8 g/dL (32-36); Mean Corpuscular Hgb 29.6 pg (27.0-32.0); Mean Corpuscular Volume 95.9 fL (81-99); Monocyte# 0.38 X10^3/uL; Monocyte% 9.7 % (0-10); NRBC Flagged by Analyzer 0 % (0-5); Neutrophil # 2.34 X10^3/uL (2.7-7.7); Neutrophil % 59.6 % (47-70); Platelet Count 277 K/mm3 (150-450); RBC Distribution Width CV 15.2 % (11.6-14.6); RBC Distribution Width SD 53.3 fl (35.1-43.9); White Blood Count 3.9 K/mm3 (4.4-11.0)
[2024-02-20 18:10] LABS: AST(SGOT) 19 U/L (15-37); Alanine Aminotransfer ALT/SGPT 15 U/L (13-56); Albumin, Serum 3.7 g/dL (3.2-5.0); Alkaline Phosphatase 83 U/L (45-117); Anion Gap 4 (5-15); BUN 11 mg/dL (7-18); BUN/Creat Ratio 16.3 RATIO (10-20); Calcium,Total 9.4 mg/dL (8.5-10.1); Chloride 103 mmol/L (98-107); Creatinine, Serum 0.68 mg/dL (0.55-1.02); EST Glomerular Filtration Rate 90 mL/min (>60); Est Glom Filt Rate - Afr Amer 109 mL/min (>60); Globulin 3.7 g/dL (2.2-4.2); Glucose 85 mg/dL (74-106); Potassium 3.8 mmol/L (3.5-5.1); Protein, Total 7.4 g/dL (6.4-8.2); Sodium Level 139 mmol/L (136-145)
== END | disposition home or self-care (01) ==
LOC: MTLAB 15:11
PROVIDERS: PCP Family Medicine; Referring Provider Internal Medicine Rheumatology; Visit Provider Internal Medicine Rheumatology
DX: L40.59 Other psoriatic arthropathy (principal); Z79.899 Other long term (current) drug therapy
CPT/HCPCS: 36415; 80053; 85025

== ENCOUNTER → 2024-05-13 | Outpatient (CLI) | payer MEDICARE, SELFPAY ==
[2024-05-13 12:27] LABS: Absolute Neutrophil Count 1.9 X10^3/uL (2.0-7.7); Basophil# 0.04 X10^3/uL; Eosinophil# 0.06 X10^3/uL; Eosinophils% 1.5 % (0-5); Hematocrit 42.1 % (37-47); Lymphocyte % 38.2 % (19-41); Mean Corp Hgb Conc 30.9 g/dL (32-36); Mean Corpuscular Hgb 30.4 pg (27.0-32.0); Mean Corpuscular Volume 98.4 fL (81-99); Mean Platelet Vol. 10.5 fl (6.2-12.0); Monocyte# 0.38 X10^3/uL; Monocyte% 9.7 % (0-10); NRBC Flagged by Analyzer 0 % (0-5); Neutrophil # 1.94 X10^3/uL (2.7-7.7); Neutrophil % 49.3 % (47-70); Platelet Count 270 K/mm3 (150-450); RBC Distribution Width CV 16.4 % (11.6-14.6); RBC Distribution Width SD 59.3 fl (35.1-43.9); Red Blood Count 4.28 M/mm3 (4.2-5.4); White Blood Count 3.9 K/mm3 (4.4-11.0)
[2024-05-13 12:36] LABS: ALB/GLOB Ratio 0.9 RATIO (0.9-2.4); AST(SGOT) 15 U/L (15-37); Alanine Aminotransfer ALT/SGPT 17 U/L (13-56); Albumin, Serum 3.2 g/dL (3.2-5.0); Alkaline Phosphatase 83 U/L (45-117); Anion Gap 3 (5-15); BUN 13 mg/dL (7-18); BUN/Creat Ratio 20.7 RATIO (10-20); Calcium,Total 8.7 mg/dL (8.5-10.1); Chloride 105 mmol/L (98-107); Creatinine, Serum 0.63 mg/dL (0.55-1.02); EST Glomerular Filtration Rate 97 mL/min (>60); Est Glom Filt Rate - Afr Amer 118 mL/min (>60); Globulin 3.5 g/dL (2.2-4.2); Glucose 68 mg/dL (74-106); Potassium 3.8 mmol/L (3.5-5.1); Protein, Total 6.7 g/dL (6.4-8.2); Sodium Level 140 mmol/L (136-145)
== END | disposition home or self-care (01) ==
PROVIDERS: PCP Family Medicine; Referring Provider Internal Medicine Rheumatology; Visit Provider Internal Medicine Rheumatology
DX: L40.59 Other psoriatic arthropathy (principal); Z79.899 Other long term (current) drug therapy
CPT/HCPCS: 36415; 80053; 85025

== ENCOUNTER 2024-07-06 08:44 | Outpatient (CLI) | payer MEDICARE, SELFPAY ==
[2024-07-06 19:49] LABS: Vitamin B12 388 pg/mL (180-914)
[2024-07-06 23:57] LABS: Cholesterol 214 mg/dL (<=200); High Density Lipoprotein 75 mg/dL; Triglycerides 78 mg/dL; Very Low Density Lipoprotein 16 mg/dL (5-40)
[2024-07-10 23:07] LABS: Free Kappa Light Chains 14.7 mg/L (3.3-19.4); Free Lambda Light Chains 11.3 mg/L (5.7-26.3); Vitamin B1, Thiamine 125.7 nmol/L (66.5-200.0)
== END 2024-07-06 23:59 | disposition home or self-care (01) ==
LOC: MTLAB 08:45
PROVIDERS: PCP Family Medicine; Referring Provider Psychiatry & Neurology Neurology; Visit Provider Psychiatry & Neurology Neurology
DX: G62.9 Polyneuropathy, unspecified (principal); I10 Essential (primary) hypertension
CPT/HCPCS: 36415; 80061; 82607; 82746; 83883; 84425; 84443

== ENCOUNTER → 2024-08-12 | Outpatient (CLI) | payer MEDICARE, SELFPAY ==
[2024-08-12 18:00] LABS: Absolute Neutrophil Count 2.6 X10^3/uL (2.0-7.7); Basophil# 0.03 X10^3/uL; Basophil% 0.7 % (0-1); Eosinophil# 0.05 X10^3/uL; Eosinophils% 1.2 % (0-5); Hematocrit 44.1 % (37-47); Hemoglobin 13.4 g/dL (12.0-15.0); Mean Corp Hgb Conc 30.4 g/dL (32-36); Mean Corpuscular Hgb 29.7 pg (27.0-32.0); Mean Corpuscular Volume 97.8 fL (81-99); Mean Platelet Vol. 10.9 fl (6.2-12.0); Monocyte# 0.38 X10^3/uL; Monocyte% 8.8 % (0-10); NRBC Flagged by Analyzer 0 % (0-5); Neutrophil # 2.56 X10^3/uL (2.7-7.7); Neutrophil % 59.1 % (47-70); Platelet Count 278 K/mm3 (150-450); RBC Distribution Width CV 15.6 % (11.6-14.6); RBC Distribution Width SD 55.6 fl (35.1-43.9); Red Blood Count 4.51 M/mm3 (4.2-5.4); White Blood Count 4.3 K/mm3 (4.4-11.0)
[2024-08-12 18:25] LABS: ALB/GLOB Ratio 1.3 RATIO (0.9-2.4); AST(SGOT) 20 U/L (<=31); Alanine Aminotransfer ALT/SGPT 10 U/L (<=34); Alkaline Phosphatase 79 U/L (35-104); Anion Gap 11 (5-15); BUN 14 mg/dL (4-19); BUN/Creat Ratio 20.6 RATIO (10-20); Calcium,Total 9.3 mg/dL (7.6-11.0); Carbon Dioxide 27.8 mmol/L (21.0-32.0); Chloride 102 mmol/L (98-108); Creatinine, Serum 0.66 mg/dL (0.70-1.20); EST Glomerular Filtration Rate 90 (>60); Globulin 3.1 g/dL (2.2-4.2); Glucose 103 mg/dL (70-99); Potassium 4.1 mmol/L (3.3-5.1); Protein, Total 7.1 g/dL (5.9-8.4); Sodium Level 141 mmol/L (133-145); Total Bilirubin 0.23 mg/dL (0.00-1.30)
== END | disposition home or self-care (01) ==
LOC: MTLAB 15:22
PROVIDERS: PCP Family Medicine; Referring Provider Internal Medicine Rheumatology; Visit Provider Internal Medicine Rheumatology
DX: L40.59 Other psoriatic arthropathy (principal); Z79.899 Other long term (current) drug therapy
CPT/HCPCS: 36415; 80053; 85025

== ENCOUNTER → 2024-08-30 | Outpatient (CLI) | payer MEDICARE, SELFPAY ==
--- NOTE | 2024-08-30 14:04 | US_ITS ---
EXAM: Ultrasound of the cervical region. CLINICAL HISTORY: Pulsatile mass in the right base of the neck. COMPARISON: None TECHNIQUE: Sonographic imaging was performed. FINDINGS: The right lobe of the thyroid gland is diffusely enlarged and measures 7.3 cm x 5 cm 3.4 cm. It is of heterogeneous echotexture. There is a dominant 5.9 cm 5.3 cm x 3.1 cm complex solid mass in the lower pole of the right lobe of the thyroid. Biopsy recommended. The left lobe of the thyroid measures 3.7 cm x 1.2 cm x 1.7 cm. It is of heterogeneous echotexture. There is evidence of a 10 mm x 9 mm x 7 mm partially calcified nodule in the lower pole. US/Head/Neck Soft Tissue IMPRESSION: The palpable mass at the base of the right side of the neck corresponds to a la rge heterogeneous lobe of the thyroid on the right side with a dominant complex mass measuring 5.9 cm 5.3 cm 3.1 cm. Biopsy recom mended. Reading Location: [place] [id number]
== END | disposition home or self-care (01) ==
LOC: US 13:56
PROVIDERS: PCP Family Medicine; Referring Provider Family Medicine; Visit Provider Family Medicine
DX: R22.1 Localized swelling, mass and lump, neck (principal)
CPT/HCPCS: 76536

== ENCOUNTER → 2024-09-30 | Outpatient (CLI) | payer MEDICARE, SELFPAY ==
--- NOTE | 2024-09-30 14:00 | ASPIG_PTH ---
PATIENT: ANNE DUARTE LOC: [facility] U#:[id number] AGE/SX: 78/F ROOM: RE09/30/[address]: Dr. Davie Mckeon MD : 1945 BED: DIS: 09/30/2024 SPEC #: [id number] RECD: 09/30/24 14:30 STATUS: HARSHAL BUSHRA #: [id number] GAUDENCIO: 09/30/24 14:[address]: Davie Mckeon DEPT: CYTOLOGY RECD BY: Cy Parra ENTERED: 09/30/24 15:18 SP TYPE: ASP OUT OTHR DR: Shannan Pressley MD Tissues: A - Thyroid gland, NOS Procedures: FNA Specimen Adequacy Special Stain Group II Surgery Specimen Level IV Cytology Other HEADER OPERATION: Fine needle aspiration of right thyroid mass PRE-OP DIAGNOSIS: Right thyroid mass TISSUE SUBMITTED: A- Right thyroid mass fluid DIAGNOSIS CYTOLOGY A. Right thyroid mass, fine needle aspiration: * Atypical cells of undetermined significance (Tesu[place] III). COMMENT The specimen is evaluated at the time of biopsy by Dr. Romeo. Immediate Evaluation = 1. Rare cell, blood. 2. Few cells, blood. CYTOLOGY STUDY Slides are reviewed. CYTOLOGY GROSS A. Received is 30 ml of red-cloudy fluid cytolyt with particles and 4 smears labeled with the patient's name and and designated per the requisition as Right thyroid mass. Submitted for cytology (2 Diff-Quik smears, 2 pap-stained smears, cytospin preparation). 09/30/2024 CPT: 09896 ,95527 ADDENDUM ADDENDUM ADDENDUM ADDENDUM ADDENDUM ADDENDUM ADDENDUM ADDENDUM ADDENDUM ADDENDUM 11/01/2024 09:29 ADDENDUM 11/01/2024 09:29 ADDENDUM 11/01/2024 09:29 ADDENDUM 11/01/2024 09:29 ADDENDUM 11/01/2024 09:29 AFIRMA RESULTS REPORT - A RESULTS INTERPRETATION: The result of this 5.9 cm [place] III nodule A is Af[facility] [place], which suggests a low risk of cancer of approximately 4%. Treatment like a cytologically benign nodule may be appropriate, including clinical correlation. Afirma XA is not performed on [facility] [place]ign nodules. TERT promoter region analysis is not performed on [facility] Benign nodules. Please see complete report in e-chart or EMR
== END | disposition home or self-care (01) ==
PROVIDERS: PCP Family Medicine; Referring Provider Surgery; Visit Provider Surgery
DX: E07.9 Disorder of thyroid, unspecified (principal)
CPT/HCPCS: 88161; 88172; 88305; 88313

== ENCOUNTER → 2024-10-27 | Outpatient (CLI) | payer MEDICARE, SELFPAY ==
--- NOTE | 2024-10-27 15:41 | CT_ITS ---
PROCEDURE: SOFT TISSUE NECK W/WO CONTRAST 10/27/2024 REASON FOR EXAM: RIGHT NECK MASS TECHNIQUE: SOFT TISSUE NECK W/WO CONTRAST CONTRAST: 100 cc Isovue 370 One or more dose reduction techniques were used (e.g., Automated exposure control, adjustment of the mA and/or kV according to patient size, use of iterative reconstruction technique). FINDINGS: There is a irregular goiter involving the right lobe of the thyroid gland which extends just above the level of the sternal notch and displaces the trachea slightly to the left side. Superior extent is just at the level of the hyoid bone. In the axial plane this measures 6.3 x 4.6 cm and in the craniocaudal direction, this measures approximately 7.3 cm. Symmetric orbits. Normal nasopharynx and parotid glands. Normal oral cavity and tongue base. CT/Soft Tissue Neck W/WO Contrast IMPRESSION: Right-sided thyroid goiter measured above. Negative for adenopathy. Reading Location[facility]
== END | disposition home or self-care (01) ==
LOC: CT 15:39
PROVIDERS: PCP Family Medicine; Referring Provider Surgery; Visit Provider Surgery
DX: R22.1 Localized swelling, mass and lump, neck (principal)
CPT/HCPCS: 70492; Q9967

== ENCOUNTER → 2024-11-01 | Outpatient (CLI) | payer MEDICARE, SELFPAY ==
[2024-11-01 12:54] LABS: Absolute Lymphocyte Count 1.11 X10^3/uL (0.83-4.51); Absolute Neutrophil Count 1.9 X10^3/uL (2.0-7.7); Basophil# 0.04 X10^3/uL; Basophil% 1.2 % (0-1); Eosinophil# 0.05 X10^3/uL; Eosinophils% 1.4 % (0-5); Hematocrit 42.2 % (37-47); Hemoglobin 12.8 g/dL (12.0-15.0); Lymphocyte # 1.11 X10^3/ul (0.83-4.51); Lymphocyte % 32.2 % (19-41); Mean Corp Hgb Conc 30.3 g/dL (32-36); Mean Corpuscular Hgb 29.9 pg (27.0-32.0); Mean Corpuscular Volume 98.6 fL (81-99); Mean Platelet Vol. 10.9 fl (6.2-12.0); Monocyte# 0.36 X10^3/uL; Monocyte% 10.4 % (0-10); NRBC Flagged by Analyzer 0 % (0-5); Neutrophil # 1.88 X10^3/uL (2.7-7.7); Neutrophil % 54.5 % (47-70); Platelet Count 261 K/mm3 (150-450); RBC Distribution Width CV 15.1 % (11.6-14.6); RBC Distribution Width SD 54.3 fl (35.1-43.9); Red Blood Count 4.28 M/mm3 (4.2-5.4); White Blood Count 3.5 K/mm3 (4.4-11.0)
[2024-11-01 13:49] LABS: ALB/GLOB Ratio 1.3 RATIO (0.9-2.4); AST(SGOT) 18 U/L (<=31); Alanine Aminotransfer ALT/SGPT 11 U/L (<=34); Albumin, Serum 3.7 g/dL (3.4-4.8); Alkaline Phosphatase 74 U/L (35-104); Anion Gap 11 (5-15); BUN 12 mg/dL (4-19); BUN/Creat Ratio 18.9 RATIO (10-20); Calcium,Total 8.8 mg/dL (7.6-11.0); Carbon Dioxide 27.7 mmol/L (21.0-32.0); Chloride 103 mmol/L (98-108); Creatinine, Serum 0.64 mg/dL (0.70-1.20); EST Glomerular Filtration Rate 90 (>60); Globulin 2.9 g/dL (2.2-4.2); Glucose 74 mg/dL (70-99); Potassium 3.7 mmol/L (3.3-5.1); Protein, Total 6.5 g/dL (5.9-8.4); Sodium Level 141 mmol/L (133-145); Total Bilirubin 0.31 mg/dL (0.00-1.30)
== END | disposition home or self-care (01) ==
LOC: MTLAB 10:50
PROVIDERS: PCP Family Medicine; Referring Provider Internal Medicine Rheumatology; Visit Provider Internal Medicine Rheumatology
DX: L40.59 Other psoriatic arthropathy (principal); Z79.899 Other long term (current) drug therapy
CPT/HCPCS: 36415; 80053; 85025

== ENCOUNTER → 2024-11-17 | Outpatient (CLI) | payer MEDICARE, SELFPAY ==
--- NOTE | 2024-11-17 12:15 | BI_ITS ---
EXAM: SCRN MAMM (CAD)W/JINNY BILAT DATE: 11/17/2024 CLINICAL HISTORY: F, Age 78 y/o, SCREENING TECHNIQUE: SCRN MAMM (CAD)W/JINNY BILAT COMPARISON: Prior exam(s) dated 11/04/2023, 09/16/2022, 07/26/2021. FINDINGS: TISSUE DENSITY: There are scattered areas of fibroglandular density. Bilateral Breast Mammographic Findings: No significant masses, calcifications or other abnormalities are identified. BI/SCRN MAMM (CAD)W/JINNY BILAT IMPRESSION: There is no mammographic evidence of malignancy. OVERALL FINAL ASSESSMENT BI-RADS 1: NEGATIVE. RECOMMEND ANNUAL MAMMOGRAPHIC SCREENING. RECOMMENDATION: Routine annual follow-up in 1 Year A letter with findings and recommendations will be mailed to the patient. Reading Location: [id number]
== END | disposition home or self-care (01) ==
LOC: OPBI 11:53
PROVIDERS: PCP Family Medicine; Referring Provider Family Medicine; Visit Provider Family Medicine
DX: Z12.31 Encounter for screening mammogram for malignant neoplasm of breast (principal)
CPT/HCPCS: 77063; 77067

== ENCOUNTER → 2024-12-07 | Outpatient (CLI) | payer MEDICARE, SELFPAY ==
--- NOTE | 2024-12-07 | FLU_PTH ---
PATIENT: ANNE DUARTE LOC: [facility] U#:[id number] AGE/SX: 79/F ROOM: RE12/07/[address]: Dr. Davie Mckeon MD : 1945 BED: DIS: 12/07/2024 SPEC #: [id number] RECD: 12/07/24 14:15 STATUS: HARSHAL BUSHRA #: [id number] GAUDENCIO: 12/07/24 00:[address]: Davie Mckeon DEPT: CYTOLOGY RECD BY: Cy Parra ENTERED: 12/07/24 14:53 SP TYPE: Fluid OTHR DR: Shannan Pressley MD Tissues: A - Thyroid gland, NOS Procedures: Special Stain Group II Surgery Specimen Level IV Cytospin Fluid HEADER OPERATION: Fine needle aspiration of left thyroid nodule PRE-OP DIAGNOSIS: Left thyroid nodule TISSUE SUBMITTED: A- Left thyroid nodule for cytology DIAGNOSIS CYTOLOGY A. Thyroid, FNA, left thyroid nodule: * Non-diagnostic due to insufficient cellular material CYTOLOGY STUDY Slides are reviewed. CYTOLOGY GROSS Received is 30 ml of light-pink cloudy cytolyt with particles and 4 smears labeled with the patient's name and and designated per the requisition as Left thyroid nodule. Submitted for cytology and cytospin. Mr 12/07/2024 CPT: 89624,24108
== END | disposition home or self-care (01) ==
PROVIDERS: PCP Family Medicine; Referring Provider Surgery; Visit Provider Surgery
DX: E04.1 Nontoxic single thyroid nodule (principal)
CPT/HCPCS: 88108; 88305; 88313

== ENCOUNTER 2025-01-28 17:19 | Emergency (ER) | payer MEDICARE, SELFPAY ==
[2025-01-28 17:22] VITALS: BP 173/126; PULSE 89; RESP 18; TEMP 36.7; O2SAT 96; BMI 40.6
[2025-01-28 17:57] VITALS: BP 176/116; PULSE 89; RESP 16; O2SAT 97
--- OUTSIDE RECORDS SUMMARY | 2025-01-28 18:30 | XMS RPT_ITS | CCD ---
Author Organization [facility] Care Team Providers Care Interior Design Program Chair Name Role Phone Raudel Miller Unavailable Unavailable Kristina Richard Unavailable Unavailable Deangelo Jeffries Unavailable Unavailable Kristina Richard Unavailable Unavailable Dr. Kristina Richard Primary Care Provider Dr. Kristina Richard Referring Provider Yoly WALDROP, CURB SETTER HELPER-C Nisa Tipton Attending Provider [phone] FriendDr. Mitchell Attending Provider [phone] FriendDr. Mitchell Other Provider [phone] Dr. Kristina Richard Primary Care Provider Dr. Kristina Richard Referring Provider DEMETRIUS Frederick NP Attending Provider Dr. Kristian Richard Primary Care Provider Dr. Kristina Richard Referring Provider Dr. Kristina Richard Primary Care Provider Dr. Kristina Richard Referring Provider Yoly WALDROP NP-Ricardo Tipton Attending Provider Dr. Kristina Richard Primary Care Provider Dr. Kristina Richard Referring Provider Yoly WALDROP, CURB SETTER HELPER-C Nisa Tipton Attending Provider Dr. Kristina Richard Primary Care Provider Dr. Kristina Richard Referring Provider Yoly WALDROP, CURB SETTER HELPER-C Nisa Tipton Attending Provider Friend, Dr. Mitchell Attending Provider Dr. Kristina Richard Primary Care Provider Dr. Kristina Richard Referring Provider All, Dr. Mitchell Referring Provider Jose Manuel DE OLIVEIRA, Dr. Kristina Lea Primary Care Provider Jose Manuel DE OLIVEIRA, Dr. Kristina Lea Referring Provider Friend DO, Dr. Mitchell Attending Provider William DE OLIVEIRA, Dr. Allan Attending Provider William DE OLIVEIRA, Dr. Allan Referring Provider Christopher DE OLIVEIRA, Dr. Bright Attending Provider Christopher DE OLIVEIRA, Dr. Bright Referring Provider Jose Manuel DE OLIVEIRA, Dr. Kristina Lea Primary Care Provider Jose Manuel DE OLIVEIRA, Dr. Kristina Lea Referring Provider Jose Manuel DE OLIVEIRA, Dr. Kristina Lea Primary Care Provider William DE OLIVEIRA, Dr. Allan Attending Provider William DE OLIVEIRA, Dr. Allan Referring Provider Jose Manuel DE OLIVEIRA, Dr. Kristina Lea Attending Provider Linda DE OLIVEIRA, Dr. Broderick Attending Provider Huan DE OLIEVIRA, Shannan Primary Care Provider Dr. Davie Mckeon MD Referring Provider Jose Manuel DE OLIVEIRA, Dr. Kristina Lea Primary Care Provider Jose Manuel DE OLIVEIRA, Dr. Kristina Lea Referring Provider Huan DE OLIVEIRA, Shannan Referring Provider Jose Manuel DE OLIVEIRA, Dr. Kristina Lea Primary Care Provider William DE OLIVEIRA, Dr. Allan Attending Provider Dr. Sanjana Thomas MD Referring Provider Christopher DE OLIVEIRA, Dr. Bright Attending Provider Jose Manuel DE OLIVEIRA, Dr. Kristina Lea Referring Provider Jose Manuel DE OLIVEIRA, Dr. Kristina Lea Attending Provider Huan, Chalon Referring Unavailable Huan, Chalon Primary Care Unavailable Bortz, Davie Attending Unavailable Huan, Chalon Primary Care Unavailable Bortz, Davie Attending Unavailable Bortz, Davie Referring Unavailable Huan, Chalon Primary Care Unavailable Bortz, Davie Attending Unavailable Jolliff, Kristina S Referring Unavailable Vellanki, Sanjana Referring Unavailable Vellanki, Sanjana Attending Unavailable Jolliff, Kristina S Primary Care Unavailable Jolliff, Kristina S Referring Unavailable Jolliff, Kristina S Attending Unavailable Jolliff, Kristina S Primary Care Unavailable Huan, Chalon Primary Care Unavailable Boreloisa, Davie Attending Unavailable Bortz, Davie Referring Unavailable Vellanki, Sanjana Referring Unavailable Vellanki, Sanjana Attending Unavailable Jolliff, Kristina S Primary Care Unavailable Friend, Stephen Attending Unavailable Jolliff, Kristina S Primary Care Unavailable Jolliff, Kristina S Referring Unavailable Jolliff, Kristina S Referring Unavailable BaddourDeangelo Attending Unavailable Jolliff, Kristina S Primary Care Unavailable Vellanki, Sanjana Attending Unavailable Vellanki, Sanjana Referring Unavailable Jolliff, Kristina S Primary Care Unavailable Huan, Chalon Primary Care Unavailable Jolliff, Kristina S Referring Unavailable Jolliff, Kristina S Attending Unavailable Deangelo White Referring Unavailable Deangelo White Attending Unavailable Jolliff, Kristina S Primary Care Unavailable Huan, Chalon Primary Care Unavailable Huan, Chalon Referring Unavailable Bortz, Davie Attending Unavailable Huan, Chalon Primary Care Unavailable Jolliff, Kristina S Referring Unavailable BaddoDeangelo barnett Attending Unavailable Huan, Chalon Referring Unavailable Huan, Chalon Primary Care Unavailable Boreloisa, Davie Attending Unavailable Huan, Chalon Primary Care Unavailable Bortz, Davie Referring Unavailable Bortz, Davie Attending Unavailable Vellanki, Sanjana Referring Unavailable Vellanki, Sanjana Attending Unavailable Huan, Chalon Primary Care Unavailable Bortz, Davie Attending Unavailable Huan, Chalon Primary Care Unavailable Allergies Allergy Classification Reported Allergen(s) Allergy Type Date of Onset Reaction(s) Facility (20 sources) Aspirin; Translations: [Aspirin TABS] Drug Allergy 2 Unknown [facility] (20 sources) Codeine Drug Allergy 2 Unknown [facility] (1 source) Sulfonamides (Antibiotic) Allergy to drug (finding) MG-Neurosurger y-[facility] Work Phone: (20 sources) Sulfonamides (Antibiotic); Translations: [Sulfa (Sulfonamide Antibiotics)] Allergy to substance 2 Unknown [facility] (1 source) Aspirin Drug Allergy 5 [facility] (1 source) Codeine Drug Allergy 5 [facility] Medications Current Medications Medication Drug Class(es) Dates Sig (Normalized) Sig (Original) calcium carbonate 1500 mg oral tablet (20 sources) Start: 07-01-2024 take 1 tablet by mouth once daily Calcium Carbonate (Calcium 600) 600 mg calcium (1,500 mg) tablet Active 600 mg PO DAILY July 01, 2024 10:12am Start: 08-20-2021 End: 07-01-2024 Calcium Carbonate (Calcium 6 00) 600 mg calcium (1,500 mg) Tablet Discontinued 1200 mg PO DAILY August 20, 2021 12:00am July 01, 2024 10:14am Start: 10-21-2014 End: 07-27-2021 Calcium Carbonate 600 MG tab let Discontinued 1200 mg PO October 21, 2014 12:00am July 27, 2021 9:04am Start: 10-21-2014 End: 07-27-2021 Calcium Carbonate Discontinu ed 1200 MG PO October 21, 2014 12:00am July 27, 2021 9:04am cholecalciferol 0.025 mg oral capsule (20 sources) Vitamin D Start: 07-27-2021 take 1 capsule by mouth once daily Cholecalciferol (Vitamin D3) 25 mcg (1,000 unit) capsule Active 25 ug PO DAILY July 27, 2021 12:00am Cranberry Conc-Ascorbic Acid (19 sources) Start: 10-21-2014 take 1 capsule by mouth once daily Cranberry Conc-Ascorbic Acid Active 40859 CAP PO DAILY October 21, 2014 10:09am Start: 10-21-2014 Cranberry Conc -Ascorbic Acid Active October 21, 2014 10:09am Start: 10-21-2014 take 1 capsule by mo uth once daily Cranberry Conc-Ascorbic Acid Active 20119 CAP PO DAILY October 20, 2014 11:00pm Start: 10-21-2014 take 1 capsule by mo uth once daily Cranberry Conc-Ascorbic Acid Active 45628 CAP PO DAILY October 21, 2014 12:00am Cranberry Extract (11 sources) Non-Standardized Food Allergenic Extract, Non-Standardized Plant Allergenic Extract Start: 07-01-2024 take 1 capsule by mouth once daily at mealtime Cranberry Extract 500 mg capsule Active 500 mg PO daily July 01, 2024 1:00am administer with meals docusate sodium 50 mg oral capsule (12 sources) Start: 07-01-2024 take 1 capsule by mouth once daily Docusate Sodium (Stool Softener) 50 mg capsule Active 50 mg PO daily July 01, 2024 1:00am Start: 12-22-2014 take 1 capsule by mo ut twice daily Stool Softener 100 MG Oral Capsule TAKE 1 CAPSULE TWICE DAILY. Refills: 0 Deangelo Jeffries MD Start : 22-Dec-2014 Active estrogens, conjugated (fci) 0.625 mg/ml vaginal cream (20 sources) Estrogen Start: 07-27-2021 Conjugated Est rogens (Premarin) 0.625 mg/gram cream Active 1.25 mg VAGINAL EVERY WEEK July 27, 2021 12:00am off 5 days; repeat cycle folic acid 1 mg oral tablet (20 sources) Start: 07-01-2024 take 2 tablets by mouth twice daily Folic Acid 1 mg tablet Active 2 mg PO TWICE A DAY July 01, 2024 10:11am Start: 10-21-2014 take 1 mg by mouth once daily Folic Acid Active 1 MG PO DAILY@0800 October 21, 2014 10:09am Start: 10-21-2014 End: 07-01-2024 take 2 tablets by mouth once daily Folic Acid 1 MG tablet Discontinued 2 mg PO DAILY@0800 October 21, 2014 12:00am July 01, 2024 10:14am Start: 10-21-2014 take 2 mg by mouth once daily Folic Acid Active 2 MG PO DAILY@0800 October 21, 2014 12:00am L. Acidophilus-L. Rhamnosus (Probiotic) 15 billion cell Capsule (18 sources) Start: 10-31-2022 L. Acidophilus -L. Rhamnosus (Probiotic) 15 billion cell Capsule Active 1 NMA PO DAILY October 31, 2022 12:00am Start: 10-31-2022 take 1 capsule by mo uth once daily L. Acidophilus-L. Rhamnosus (Probiotic) 15 billion cell Capsule Active 1 CAP PO DAILY October 31, 2022 12:00am latanoprost 0.05 mg/ml ophthalmic solution (20 sources) Prostaglandin Analog Start: 08-20-[address] 0.005 % drops Active 1 NMA EACH EYE AT BEDTIME August 20, 2021 12:00am Start: 08-20-2021 Latanoprost Ac tive 1 DRP EACH EYE AT BEDTIME August 20, 2021 12:00am loratadine 10 mg oral tablet (20 sources) Start: 08-20-2021 take 1 tablet by mouth once daily Loratadine 10 mg Tablet Active 10 mg PO DAILY August 20, 2021 12:00am losartan potassium 50 mg oral tablet (11 sources) Angiotensin 2 Receptor Percy Start: 04-19-2024 take 1 tablet by mouth once daily Losartan 50 mg tablet Active 50 mg PO daily April 19, 2024 1:00am methotrexate 2.5 mg oral tablet (20 sources) Folate Analog Metabolic Inhibitor Start: 07-27-2021 Methotrexate Sodium 2.5 mg tablet Active 0 .ROUTE .COMPLEX July 27, 2021 9:02am 6 tabs PO QWEEK-TAKES ON FRIDAY Start: 07-27-2021 take 6 tablets by mo ut every week Methotrexate Sodium Active 0 .ROUTE .COMPLEX July 27, 2021 9:02am 6 tabs PO QWEEK Start: 10-21-2014 End: 07-27-2021 Methotrexate Sodium 2.5 MG t ablet Discontinued October 21, 2014 12:00am July 27, 2021 9:07am Start: 10-21-2014 End: 07-27-2021 Methotrexate Sodium Active 0 .ROUTE .COMPLEX July 27, 2021 9:02am 6 tabs PO QWEEK-TAKES ON FRIDAY nortriptyline 25 mg oral capsule (20 sources) Tricyclic Antidepressant Start: 07-27-2021 take 1 capsule by mouth at bedtime Nortriptyline 25 mg capsule Active 25 mg PO AT BEDTIME July 27, 2021 12:00am omeprazole 40 mg delayed release oral capsule (20 sources) Proton Pump Inhibitor Start: 02-04-2014 take 1 capsule by mouth once daily Omeprazole (Prilosec) 40 MG capsule Active 40 mg PO DAILY October 21, 2014 12:00am potassium 99 mg extended release oral tablet (20 sources) Start: 07-01-2024 Potassium 99 mg tablet Active 1 {tbl} PO 3 TIMES A WEEK 0 July 01, 2024 10:13am LOW K+ Start: 07-27-2021 Potassium Acti ve 1 TABLET PO NEEDED July 27, 2021 9:04am Start: 07-27-2021 Potassium Acti ve PO July 27, 2021 9:04am Start: 07-27-2021 End: 07-01-2024 Potassium 99 mg tablet Disco ntinued 1 {tbl} PO NEEDED as needed for LOW K+ 0 July 27, 2021 12:00am July 01, 2024 10:14am Start: 07-27-2021 Potassium Acti ve 1 TABLET PO NEEDED July 26, 2021 11:00pm Start: 07-27-2021 Potassium Acti ve 1 TABLET PO NEEDED July 27, 2021 12:00am traMADol hydrochloride 50 mg oral tablet (20 sources) Opioid Agonist Start: 07-01-2024 take 1 tablet by mouth three times daily as needed Tramadol 50 mg tablet Active 50 mg PO THREE TIMES A DAY as needed July 01, 2024 1:00am Start: 07-27-2021 End: 07-01-2024 Tramadol (Conzip) 100 mg cap alicia,ER biphase 24 hr 25-75 Discontinued 50 mg PO .QID as needed for Pain July 27, 2021 8:57am July 01, 2024 10:11am Start: 10-21-2014 End: 07-27-2021 Tramadol (Conzip) 100 MG cap alicia,ER biphase 24 hr 25-75 Discontinued 50 mg PO October 21, 2014 12:00am July 27, 2021 9:07am Start: 02-21-2014 traMADol HCl - 50 MG Oral Tablet Quantity: 30 Refills: 0 Start : 21-Feb-2014 Active Zinc (20 sources) Start: 07-27-2021 take 50 mg by mouth every other day Zinc Active 50 MG PO EVERY OTHER DAY July 27, 2021 8:53am Start: 07-27-2021 take 50 mg by mouth once daily Zinc Active 50 MG PO DAILY July 27, 2021 8:53am Start: 07-27-2021 take 1 tablet by elsa th every other day Zinc 50 mg tablet Active 50 mg PO EVERY OTHER DAY July 27, 2021 12:00am Start: 07-27-2021 take 50 mg by mouth every other day Zinc Active 50 MG PO EVERY OTHER DAY July 26, 2021 11:00pm Start: 07-27-2021 take 50 mg by mouth every other day Zinc Active 50 MG PO EVERY OTHER DAY July 27, 2021 12:00am Completed/Discontinued Medications Medication Drug Class(es) Dates Sig (Normalized) Sig (Original) balsalazide disodium 750 mg oral capsule (20 sources) Aminosalicylate Start: 09-19-2021 End: 09-17-2024 take 1 capsule by mouth twice daily Balsalazide 750 mg capsule Discontinued 750 mg PO TWICE A DAY 180 3 September 14, 2024 3:59pm September 17, 2024 9:54am Start: 08-24-2021 End: 09-19-2021 take 1 capsule by mouth three times daily Balsalazide 750 mg capsule Discontinued 750 mg PO THREE TIMES A DAY 60 5 August 24, 2021 12:00am September 19, 2021 2:52pm Cranberry Conc-Ascorbic Acid 1 EACH capsule (11 sources) Start: 10-21-2014 End: 07-01-2024 Cranberry Conc-Ascorbic Acid 1 EACH capsule Discontinued 07350 NMA PO DAILY October 21, 2014 12:00am July 01, 2024 10:12am 84 hr estradiol 0.40740 mg/hr transdermal system (20 sources) Estrogen Start: 10-21-2014 End: 07-27-2021 Estradiol 1 EACH patch semiweekly Discontinued 1 NMA TD October 21, 2014 12:00am July 27, 2021 9:04am Start: 10-21-2014 End: 07-27-2021 Estradiol Discontinued 1 EAC H TD October 21, 2014 12:00am July 27, 2021 9:04am Start: 02-04-2014 Estradiol 1 MG Oral Tablet Quantity: 90 Refills: 0 Start : 04-Feb-2014 Active fludrocortisone 0.1 mg oral tablet (1 source) Start: 12-03-2014 Fludrocortison e Acetate 0.1 MG Oral Tablet Quantity: 30 Refills: 0 Start : 03-Dec-2014 Active Grofagoz-Dpui-Iwh4-C-Louie-Kahlil sw (Osteo Bi-Flex Caplet) 1 EACH tablet (20 sources) Start: 10-21-2014 End: 07-27-2021 Hzyasjjo-Tzan-Gos2-C-Louie-Kahlil sw (Osteo Bi-Flex Caplet) 1 EACH tablet Discontinued 1 EACH PO October 21, 2014 10:09am July 27, 2021 9:03am Start: 10-21-2014 End: 07-27-2021 Lrztiloi-Dibs-Eck1-C-Louie-Kahlil sw (Osteo Bi-Flex Caplet) 1 EACH tablet Discontinued 1 NMA PO October 21, 2014 12:00am July 27, 2021 9:03am Start: 10-21-2014 End: 07-27-2021 Pnjmphqf-Gktb-Scw2-C-Louie-Kahlil sw (Osteo Bi-Flex Caplet) 1 EACH tablet Discontinued 1 EACH PO October 20, 2014 11:00pm July 27, 2021 8:03am Start: 10-21-2014 End: 07-27-2021 Eiobquer-Keiv-Lhd3-C-Louie-Kahlil sw (Osteo Bi-Flex Caplet) 1 EACH tablet Discontinued 1 EACH PO October 21, 2014 12:00am July 27, 2021 9:03am leucovorin 5 mg oral tablet (20 sources) Folate Analog Start: 10-21-2014 End: 07-27-2021 take 1 tablet by mouth once daily Leucovorin Calcium 5 MG tablet Discontinued 5 mg PO DAILY October 21, 2014 12:00am July 27, 2021 9:03am meloxicam 15 mg oral tablet (20 sources) Nonsteroidal Anti-inflammatory Drug Start: 10-21-2014 End: 07-27-2021 Meloxicam (Mobic) 15 MG tablet Discontinued 15 mg PO October 21, 2014 12:00am July 27, 2021 9:03am mesalamine 800 mg delayed release oral tablet (20 sources) Aminosalicylate Start: 08-23-2021 End: 08-24-2021 take 1 tablet by mouth twice daily Mesalamine 800 mg tablet,delayed release (DR/EC) Discontinued 1600 mg PO TWICE A DAY 120 6 August 23, 2021 12:00am August 24, 2021 5:14pm must be taken on empty stomach; no food 1 hr after or 2-3 hrs before dose Start: 08-23-2021 End: 08-24-2021 take 1 dose by mouth twice daily Mesalamine Discontinued 1600 MG PO TWICE A DAY 120 August 23, 2021 12:00am August 24, 2021 5:14pm must be taken on empty stomach; no food 1 hr after or 2-3 hrs before dose Xqjsr-0u-Xoo-Epa-Fish Oil-D3 (19 sources) Start: 10-21-2014 End: 07-27-2021 Nhvts-4g-Eej-Epa-Fish Oil-D3 Discontinued October 21, 2014 10:09am July 27, 2021 9:03am Start: 10-21-2014 End: 07-27-2021 Jcrzc-7l-Xcx-Epa-Fish Oil-D3 Discontinued October 20, 2014 11:00pm July 27, 2021 8:03am Start: 10-21-2014 End: 07-27-2021 Wxxcd-9v-Wsb-Epa-Fish Oil-D3 Discontinued October 21, 2014 12:00am July 27, 2021 9:03am Ohofy-2u-Crj-Epa-Fish Oil-D3 1 EACH capsule (11 sources) Start: 10-21-2014 End: 07-27-2021 Lovvz-7g-Ttm-Epa-Fish Oil-D3 1 EACH capsule Discontinued October 21, 2014 12:00am July 27, 2021 9:03am ondansetron 4 mg oral tablet (1 source) Serotonin-3 Receptor Antagonist Start: 12-03-2014 Ondansetron HCl - 4 MG Oral Tablet Quantity: 30 Refills: 0 Start : 03-Dec-2014 Active microencapsulated potassium chloride 20 meq extended release oral tablet (1 source) Start: 01-02-2015 Klor-Con M20 20 MEQ Oral Tablet Extended Release Quantity: 30 Refills: 0 Start : 02-Jan-2015 Active predniSONE 10 mg oral tablet (20 sources) Start: 10-21-2014 End: 07-27-2021 take 1 tablet by mouth once daily Prednisone 10 MG tablet Discontinued 10 mg PO DAILY October 21, 2014 12:00am July 27, 2021 9:03am Problems Active Problems Problem Classification Problem Date Documented Da te Episodic/Chronic Abdominal pain (20 sources) Abdominal pain; Translations: [Unspecified abdominal pain] Episodic Acute cerebrovascular disease (1 source) Cerebrovascular accident; Translations: [Ruptured aneurysm of intracranial artery] Chronic Anal and rectal conditions (20 sources) Rectal mass; Translations: [Other specified diseases of anus and rectum] 08-10-2021 Episodic Esophageal disorders (20 sources) Gastroesophageal reflux disease; Translations: [Gastro-esophageal reflux disease without esophagitis] 07-30-2021 Chronic Gastrointestinal hemorrhage (20 sources) Rectal hemorrhage; Translations: [Hemorrhage of anus and rectum] Episodic Headache; including migraine (12 sources) Headache; Translations: [Headache] 09-04-2023 Episodic Malaise and fatigue (2 sources) Fatigue; Translations: [Other fatigue] 01-13-2025 Episodic Open wounds of head; neck; and trunk (1 source) Open wound of scalp with complication; Translations: [Open wound of scalp, complicated] Episodic Osteoarthritis (20 sources) Arthritis; Translations: [Unspecified osteoarthritis, unspecified site] 07-30-2021 Chronic Other and ill-defined cerebrovascular disease (15 sources) Cerebrovascular disease; Translations: [Cerebrovascular disease, unspecified] 07-04-2024 Chronic Other circulatory disease (16 sources) Personal history of other diseases of the circulatory system; Translations: [History of ruptured cerebral aneurysm] 07-04-2024 Episodic Other hereditary and degenerative nervous system conditions (16 sources) Impaired cognition; Translations: [Mild cognitive impairment, so stated] 07-04-2024 Chronic Other inflammatory condition of skin (1 source) Other psoriatic arthropathy; Translations: [Other psoriatic arthropathy] Onset: 5 Chronic Other nervous system disorders (15 sources) Polyneuropathy; Translations: [Polyneuropathy, unspecified] 07-04-2024 Chronic Other nervous system disorders (1 source) Polyneuropathy, unspecified; Translations: [Polyneuropathy, unspecified] Onset: 5 Chronic Other nervous system disorders (15 sources) Abnormal gait; Translations: [Unspecified abnormalities of gait and mobility] 07-04-2024 Episodic Other screening for suspected conditions (not mental disorders or infectious disease) (20 sources) High carcinoembryonic antigen level; Translations: [Elevated carcinoembryonic antigen [CEA]] Onset: Episodic Other skin disorders (9 sources) Mass of neck; Translations: [Localized swelling, mass and lump, neck] 09-30-2024 Episodic Other skin disorders (1 source) Localized swelling, mass and lump, neck; Translations: [Localized swelling, mass and lump, neck] Onset: 5 Episodic Regional enteritis and ulcerative colitis (20 sources) Ulcerative colitis; Translations: [Ulcerative colitis, unspecified, without complications] Chronic Residual codes; unclassified (1 source) H/O: surgery; Translations: [Status post laparotomy] Episodic Rheumatoid arthritis and related disease (12 sources) Rheumatoid arthritis; Translations: [Rheumatoid arthritis, unspecified] 09-04-2023 Chronic Thyroid disorders (20 sources) Thyroid nodule; Translations: [Nontoxic single thyroid nodule] Onset: 5 09-30-2024 Chronic Comment on above: Patient is 78-year-o ld female, euthyroid from an endocrine standpoint, who presents for surgical consultation related to a newly discovered right thyroid nodule. This nodule is quite large and located in the right inferior pole. On initial elicitation of history patient does not seem to endorse any compressive symptoms but then goes on to describe some difficulty breathing at night. Therefore, it is difficult to determine if they are connected or not especially given the large size of the nodule. I reviewed the results of her recent ultrasound with her and her daughter. And drawing was made to help facilitate comprehension. I shared that although no TI-RADS rating was given by radiology I would rate this a TI-RADS 3 based on imaging characteristics of being mostly solid and hyperechoic. It easily met the threshold by ACR criteria for biopsy so this recommendation was extended to the patient and she readily excepted. Procedure was undertaken in uncomplicated fashion and full details are given in the procedures section of this note. Patient is 78-year-o ld female, euthyroid from an endocrine standpoint, who presents for surgical consultation related to a newly discovered right thyroid nodule. This nodule is quite large and located in the right inferior pole. On initial elicitation of history patient does not seem to endorse any compressive symptoms but then goes on to describe some difficulty breathing at night. Therefore, it is difficult to determine if they are connected or not especially given the large size of the nodule. I reviewed the results of her recent ultrasound with her and her daughter. And drawing was made to help facilitate comprehension. I shared that although no TI-RADS rating was given by radiology I would rate this a TI-RADS 3 based on imaging characteristics of being mostly solid and hyperechoic. It easily met the threshold by ACR criteria for biopsy so this recommendation was extended to the patient and she readily excepted. 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 I shared with patient and her daughters that with the finding of tracheal displacement I would recommend proceeding with surgical intervention. I discussed the options for surgery is either be total thyroidectomy or hemithyroidectomy. I highlighted procedure specific risks of recurrent laryngeal nerve injury and hypoparathyroidism. I discussed how these risks are proportionally related to the degree of surgery undertaken. I added that my recommendation would likely be for a hemithyroidectomy, however, I qualify this recommendation stating that I also recommended pursuing biopsy of a 1 cm left-sided TI-RADS 4 thyroid nodule (this nodule is just shy of a TI-RADS 5 rating) before I could confirm this recommendation. I demonstrated from the original CT imaging how this nodule would otherwise lie directly on the new transection margin after an isthmusectomy would be performed and that future surveillance could very probably lead to its investigation/evaluation for possible removal. Patient's daughters were particularly receptive but patient did confirm understanding. We will schedule her for a biopsy visit. Patient is 78-year-o ld female, euthyroid from an endocrine standpoint, who presents for surgical consultation related to a newly discovered right thyroid nodule. This nodule is quite large and located in the right inferior pole. On initial elicitation of history patient does not seem to endorse any compressive symptoms but then goes on to describe some difficulty breathing at night. Therefore, it is difficult to determine if they are connected or not especially given the large size of the nodule. I reviewed the results of her recent ultrasound with her and her daughter. And drawing was made to help facilitate comprehension. I shared that although no TI-RADS rating was given by radiology I would rate this a TI-RADS 3 based on imaging characteristics of being mostly solid and hyperechoic. It easily met the threshold by ACR criteria for biopsy so this recommendation was extended to the patient and she readily excepted. 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 I shared with patient and her daughters that with the finding of tracheal displacement I would recommend proceeding with surgical intervention. I discussed the options for surgery is either be total thyroidectomy or hemithyroidectomy. I highlighted procedure specific risks of recurrent laryngeal nerve injury and hypoparathyroidism. I discussed how these risks are proportionally related to the degree of surgery undertaken. I added that my recommendation would likely be for a hemithyroidectomy, however, I qualify this recommendation stating that I also recommended pursuing biopsy of a 1 cm left-sided TI-RADS 4 thyroid nodule (this nodule is just shy of a TI-RADS 5 rating) before I could confirm this recommendation. I demonstrated from the original CT imaging how this nodule would otherwise lie directly on the new transection margin after an isthmusectomy would be performed and that future surveillance could very probably lead to its investigation/evaluation for possible removal. Patient's daughters were particularly receptive but patient did confirm understanding. We will schedule her for a biopsy visit.Update 12/07/2024: Patient presented today for left-sided FNA of a partially calcified (peripherally) thyroid nodule that would otherwise lie at the resection margin if we move forward with a right thyroid lobectomy with isthmusectomy. I suggested that I would feel better keeping this under surveillance if we able to get a benign result and would be happy her to proceed with a conservative surgery. Patient and her family saw Eagan this recommendation and thus we proceeded with biopsy of the nodule in question during today's visit. This was technically challenging given the presence of calcifications. Complete details are given in the procedures section of this note. 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 [place] [address] OFFICE VISIT Date of Service: 01/13/25 MR#: [id number] Acct: [id number] Name: ANNE DUARTE GENA Rep #: [id number] : 1945 Provider: Dr. Davie richard MD Age/Sex: 79/F Location: [facility] Status: Signed Intake Vital Signs 11/08/24 08:26 12/17/24 15:23 12/27/24 10:23 01/13/25 09:27 Height 5 ft 5 ft 5 ft 5 ft Weight: 198 lb 198 lb BMI 38.7 38.7 BP 153/90 H 154/95 H Blood Pressure Location Lt brachial Rt brachial Position Sitting Sitting Respiration 16 18 Pulse 86 101 H Pulse Source Monitor Monitor Temp 98.0 F 96.8 F L Temp Source Temporal Temporal Pulse Oximetry (%) 96 95 Oxygen Delivery Method room air room air Intake Visit Reasons: Discuss thyroid surgery/update H P Chief Complaint: Discuss thyroid surgery Duty Engineer Required: No Accompanied by: Daughter Is patient in pain?: No Allergies aspirin Allergy (Verified 01/13/25 09:30) Unknown codeine Allergy (Verified 01/13/25 09:30) Unknown Sulfa (Sulfonamide Antibiotics) Allergy (Verified 01/13/25 09:30) Unknown Medications ???Medication ???Instructions ???Recorded ???Confirmed ???Type Omeprazole [Prilosec] 40 mg PO DAILY 06/12/15 09/04/25 H istory cholecalciferol (vitamin D3) 25 25 mcg PO DAILY 07/27/21 01/13/25 History mcg (1,000 unit) capsule conjugated estrogens 0.625 mg/gram 1.25 mg vaginal QWEEK 07/27/21 0 01/13/25 History vaginal cream (Premarin) methotrexate sodium 2.5 mg tablet See Rx Instructions .Route .COMPL EX 07/27/21 01/13/25 History nortriptyline 25 mg capsule 25 mg PO QHS 07/27/21 01/13/25 His tory zinc 50 mg tablet 50 mg PO QODAY 07/27/21 01/13/25 H istory latanoprost 0.005 % eye drops 1 drp EACH EYE QHS 08/20/21 History loratadine 10 mg tablet 10 mg PO DAILY 08/20/21 01/13/25 H istory Lactobacillus acidophilus and 1 cap PO DAILY 10/31/22 01/13/25 H istory rhamnosus 15 billion cell capsule (Probiotic) losartan 50 mg tablet 50 mg PO QDAY 04/19/24 01/13/25 Hi story Potassium 1 tab PO 3XW LOW K+ 07/01/2401/13 History calcium carbonate (Calcium 600) 600 mg PO DAILY 07/01/24 01/13/25 History cranberry extract 500 mg capsule 500 mg PO QDAY 07/01/24 01/13/25 H istory docusate sodium 50 mg capsule 50 mg PO QDAY 07/01/24 01/13/25 Hi story (Stool Softener) folic acid 1 mg tablet 2 mg PO BID 07/01/24 01/13/25 Hist ory tramadol 50 mg tablet 50 mg PO TID PRN 07/01/24 01/13/25 History balsalazide 750 mg capsule 750 mg PO BID #180 caps 09/17/24 0 01/13/25 Rx Have you fallen in the past year?: No PFSH Medical History (Updated 01/13/25 @ 11:[address] Davie Mckeon MD) Thyroid nodule Goiter Fatigue Mass of right side of neck Brain aneurysm Rash Restless legs Rheumatoid arthritis History of rheumatic fever Wears glasses Post-menopausal Back pain Migraine headache Gastric reflux Non-smoker Shortness of breath on exertion Leg cramps History of pain when walking GERD (gastroesophageal reflux disease) Arthritis Rectal bleeding Surgical History Hx of brain surgery Hx of total hip arthroplasty Hx of bladder repair surgery Hx of breast biopsy Hx of arthroscopic knee surgery Hx of arthroscopy of shoulder Hx of appendectomy Hx of hysterectomy Family History Father Cancer bladder Mother Heart disease Social History Smoking Status: Never smoker alcohol intake: never substance use type: does not use what type of physical activity do you participate in: none HPI HPI HPI: Patient is a 79-year-old female who presents for surgical discussions around her newly diagnosed right thyroid nodule. Last visit 12/07/2024 for FNA of left thyroid nodule that was nondiagnostic. She presents today with her daughter. She denies any interval health updates. She denies any questions to start today's visit. Below is recapitulated from patient's prior visits for ease of review: Patient is a 78-year-old female who presents for evaluation of newly diagnosed right thyroid nodule. Patient previously seen 09/30/2024 and 11/08/2024. She presents today for left-sided thyroid nodule FNA. She presents today with her daughter and denies any health updates. They do confirm they have discussed recommendation for surgery as a family and are overall in agreement with the recommendation. Below is recapitulated from patient's prior visits for ease to review: Patient is a 78-year-old female who presents for evaluation of newly diagnosed right thyroid nodule. Patient last seen 09/30/2024. In the interval since her last visi (more content not included)... [facility] Neurology Visit Reporton Neurology Visit Report [facility] [address], [address] [place] [address] OFFICE VISIT Date of Service: 12/27/24 MR#: [id number] Acct: [id number] Name: ANNE DUARTE GENA Rep #: [id number] : 1945 Provider: Dr. Deangelo melendez MD Age/Sex: 79/F Location: [facility] Status: Signed HPI HPI Chief Complaint: Establish Care Details: Interim History: Anne returns for follow-up visit. She has a history of hypertension, rheumatoid arthritis and cerebral aneurysm rupture in 2014. She is accompanied by her daughter. In 2014, she experienced acute onset severe headache and neck pain. On hospital evaluation, she was found to have an intracranial hemorrhage and a ruptured cerebral aneurysm. She underwent intracranial surgery and clipping of the cerebral aneurysm (on imaging the aneurysm clip appears to be in the region of the right internal carotid artery at the bifurcation of the middle cerebral artery). A SOFTWARE DEVELOPER INTERN shunt was placed for period of time then this was subsequently removed. 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 She also began to have frequent headaches following her cerebral aneurysm rupture. She experienced only occasional headaches (without associated nausea) prior to her cerebral aneurysm rupture. Since her aneurysm rupture she has experienced occasional nausea with her headaches. She denied having photophobia or phonophobia. Her headaches are localized to the occipital and right frontal head region. Her headaches occur daily but are not continuous. Severe headaches occur about less than 1 day/month. She is unaware of any triggers for her headaches. Her headaches are adequately alleviated with acetaminophen (total daily dose is up to 1500 mg). She has had bilateral cataract surgery. She has had memory difficulties since the beginning of 2023. She has a tendency to forget conversations and forget some recent events. She remains independent in her daily activities except that she has not been driving since her cerebral aneurysm rupture. She lives at home with her daughter. No further worsening of her memory has been noted within recent months. She sees a livestock feeder for rheumatoid arthritis and is on methotrexate. She has had a right total hip replacement. She has had prior left shoulder surgery. She has arthritic pain in the hands and left hip. She has low back pain. She stated that on prior assessment, lumbar surgery was not recommended. She denied having neck pain. She denied having numbness. She denied having focal weakness. She denied having dizziness. She has had some gait imbalance. She uses a cane. Mini-Mental status exam score was 28/30 in June 2024 Physical Exam: Neuro: The patient is awake; she is marginally bradyphrenic; speech is fluent; she is oriented to day of the week; she is able to spell world backwards; she is able to subtract 7 from 100 Neck: No bruits Heart: Regular rhythm and rate Supplemental Info Head CTA (09/04/2023): FINDINGS: VASCULAR --Anterior cerebral circulation: ICAs: Aneurysm clip adjacent to the right paraclinoid ICA. No hemodynamically significant stenosis. ACAs: No hemodynamically significant stenosis. ACOM: Present. MCAs: No hemodynamically significant stenosis. --Posterior cerebral circulation: supervisor endless track vehicle: No hemodynamically significant stenosis. BASILAR ARTERY: No hemodynamically significant stenosis. VERTEBRAL ARTERIES: No hemodynamically significant stenosis. BRAIN PARENCHYMA: No intra- or extra-axial hemorrhage. No evidence of acute infarct. No intracranial mass or mass effect. There is preservation of the issa/white matter interface. Posterior fossa structures are unremarkable. No abnormal contrast enhancement. CSF SPACES: Appropriate for age. No hydrocephalus. Basal cisterns are patent. CALVARIUM, SKULL BASE, PARANASAL SINUSES AND MASTOID AIR CELLS: Clear. No discrete lytic or blastic abnormalities. ORBITS: Both globes, extraocular muscles, optic nerves and retrobulbar fat appear unremarkable. ASPECTS Score for Acute Strokes: 10 IMPRESSION: Negative CTA Brain with and without contrast. CBC, CMP (05/13/24): WBC 3.9 (low), glucose 68 (low), BUN/creatinine ratio 20.7 (high) Lipid profile, folate, TSH, B12, thiamine, serum free light chains (07/06/2024): Triglycerides 78 (normal), cholesterol 214 (high), LDL 123 (normal), HDL 75 (normal), B12 388 (near low end of normal range) CBC, CMP (11/01/2024): WBC 3.5 (low), 0.64 (low) Assessment and Plan Assessment and Plan (1) History of ruptured cerebral aneurysm: Status: Resolved (2) Mild cognitive impairment: Status: Acute (3) Fatigue: Status: Acute Plan Details Additional Comments: The patient has a history of cerebral aneurysm rupture in 2015 for which she underwent surgical clipping. She also had a SOFTWARE DEVELOPER INTERN shunt placed, which was then subseque (more content not included)... [facility] Non-gynecologic cytology rep ortOrdered By: Yulissa Segura on 12-08-2024 Study report [facility] Special Stain Group IIon Special Stain Group II --------- Patient Age/Sex Location Account Attending Physician ANNE DUARTE 79/F [facility] [id number] Dr. Davie Mckeon MD Specimen: [id number] Received: 12/07/24 Status: HARSHAL Caroline Num: [id number] Spec Type: Fluid Subm Dr: Dr. Davie Mckeon MD HEADER OPERATION: Fine needle aspiration of left thyroid nodule PRE-OP DIAGNOSIS: Left thyroid nodule TISSUE SUBMITTED: A- Left thyroid nodule for cytology DIAGNOSIS CYTOLOGY A. Thyroid, FNA, left thyroid nodule: * Non-diagnostic due to insufficient cellular material CYTOLOGY STUDY Slides are reviewed. CYTOLOGY GROSS Received is 30 ml of light-pink cloudy cytolyt with particles and 4 smears labeled with the patient's name and and designated per the requisition as Left thyroid nodule. Submitted for cytology and cytospin. Mr 12/07/2024 CPT: 31192,54730 Signed (signature on file) Dr. Yulissa Segura, DO 12/08/24 1146 [facility] Comment on above: Performed By: #### L 100.0100, L500.4050 #### [facility] [address] [place], [place], [id number] Surgery Visit Reporton 12-07 Surgery Visit Report [facility] [address] [place] [address] OFFICE VISIT Date of Service: 12/07/24 MR#: [id number] Acct: [id number] Name: ANNE DUARTE Rep #: [id number] : 1945 Provider: Dr. Davie richard MD Age/Sex: 79/F Location: [facility] Status: Signed Intake Vital Signs 11/08/24 08:26 12/07/24 13:42 Height 5 ft BP 142/68 H 140/83 H Blood Pressure Location Rt radial Rt brachial Position Sitting Sitting Respiration 16 17 Pulse 88 Pulse Source Monitor Pulse Oximetry (%) 94 Oxygen Delivery Method room air Intake Visit Reasons: THYROID FNA Chief Complaint: thyroid biopsy Is patient in pain?: No Allergies aspirin Allergy (Verified 12/07/24 13:43) Unknown codeine Allergy (Verified 12/07/24 13:43) Unknown Sulfa (Sulfonamide Antibiotics) Allergy (Verified 12/07/24 13:43) Unknown Medications ???Medication ???Instructions ???Recorded ???Confirmed ???Type Omeprazole [Prilosec] 40 mg PO DAILY 10/21/14 12/07/24 H istory cholecalciferol (vitamin D3) 25 25 mcg PO DAILY 07/27/21 12/07/24 History mcg (1,000 unit) capsule conjugated estrogens 0.625 mg/gram 1.25 mg vaginal QWEEK 07/27/21 0 12/07/24 History vaginal cream (Premarin) methotrexate sodium 2.5 mg tablet See Rx Instructions .Route .COMPL EX 07/27/21 12/07/24 History nortriptyline 25 mg capsule 25 mg PO QHS 07/27/21 12/07/24 His tory zinc 50 mg tablet 50 mg PO QODAY 07/27/21 12/07/24 H istory latanoprost 0.005 % eye drops 1 drp EACH EYE QHS 08/20/21 History loratadine 10 mg tablet 10 mg PO DAILY 08/20/21 12/07/24 H istory Lactobacillus acidophilus and 1 cap PO DAILY 10/31/22 12/07/24 H istory rhamnosus 15 billion cell capsule (Probiotic) losartan 50 mg tablet 50 mg PO QDAY 04/19/24 12/07/24 Hi story Potassium 1 tab PO 3XW LOW K+ 07/01/2412/07 History calcium carbonate (Calcium 600) 600 mg PO DAILY 07/01/24 12/07/24 History cranberry extract 500 mg capsule 500 mg PO QDAY 07/01/24 12/07/24 H istory docusate sodium 50 mg capsule 50 mg PO QDAY 07/01/24 12/07/24 Hi story (Stool Softener) folic acid 1 mg tablet 2 mg PO BID 07/01/24 12/07/24 Hist ory tramadol 50 mg tablet 50 mg PO TID PRN 07/01/24 12/07/24 History balsalazide 750 mg capsule 750 mg PO BID #180 caps 09/17/24 0 12/07/24 Rx Have you fallen in the past year?: No PFSH Medical History Mass of right side of neck Brain aneurysm Rash Restless legs Rheumatoid arthritis History of rheumatic fever Wears glasses Post-menopausal Back pain Migraine headache Gastric reflux Non-smoker Shortness of breath on exertion Leg cramps History of pain when walking GERD (gastroesophageal reflux disease) Arthritis Rectal bleeding Surgical History Hx of brain surgery Hx of total hip arthroplasty Hx of bladder repair surgery Hx of breast biopsy Hx of arthroscopic knee surgery Hx of arthroscopy of shoulder Hx of appendectomy Hx of hysterectomy Family History Father Cancer bladder Mother Heart disease Social History Smoking Status: Never smoker alcohol intake: never substance use type: does not use what type of physical activity do you participate in: none HPI HPI HPI: Patient is a 78-year-old female who presents for evaluation of newly diagnosed right thyroid nodule. Patient previously seen 09/30/2024 and 11/08/2024. She presents today for left-sided thyroid nodule FNA. She presents today with her daughter and denies any health updates. They do confirm they have discussed recommendation for surgery as a family and are overall in agreement with the recommendation. Below is recapitulated from patient's prior visits for ease to review: Patient is a 78-year-old female who presents for evaluation of newly diagnosed right thyroid nodule. Patient last seen 09/30/2024. In the interval since her last visit she completed CT imaging of her neck to assess for compressive signs and also tried to exclude any substernal extension. She presents today's visit with her daughters. She denies any interval health changes. Below is recapitulated from patient's prior visit for ease of review: Patient is a 78-year-old female who presents for evaluation of newly diagnosed right thyroid nodule. They are referred for surgical consultation from Dr. Richard. This was discovered incidentally as part of a wellness exam and she was referred for immediate ultrasound exam. She states since the ultrasound exam she believes she has felt this area more but questions whether or not this perception is just in her (more content not included)... [facility] Breast imaging reportOrdered By: Ngoc López on 11-17-2024 Study report [facility] Services [address] [place], [place] [address] SCRN MAMM (CAD)W/JINNY BILAT MR#: [id number] Acct: [id number] Name: ANNE DUARTE GENA Rep #: [id number] : 1945 F 78 From: Araceli López MD PCP: Dr. Shannan Pressley MD Status: REG CL I Study:SCRN MAMM (CAD)W/JINNY BILAT Date of Exa m: 11/17/24 Exam# [id number] Ordering Dr: Kristina Richard MD EXAM: SCRN MAMM (CAD)W/JINNY BILAT DATE: 11/17/2024 CLINICAL HISTORY: F, Age 78 y/o, SCREENING TECHNIQUE: SCRN MAMM (CAD)W/JINNY BILAT COMPARISON: Prior exam(s) dated 11/04/2023, 09/16/2022, 07/26/2021. FINDINGS: TISSUE DENSITY: There are scattered areas of fibroglandular density. Bilateral Breast Mammographic Findings: No significant masses, calcifications or other abnormalities are identified. BI/SCRN MAMM (CAD)W/JINNY BILAT IMPRESSION: There is no mammographic evidence of malignancy. OVERALL FINAL ASSESSMENT BI-RADS 1: NEGATIVE. RECOMMEND ANNUAL MAMMOGRAPHIC SCREENING. RECOMMENDATION: Routine annual follow-up in 1 Year A letter with findings and recommendations will be mailed to the patient. Reading Location: [facility] CC: Dr. Kristina Richard MD; Dr. Shannan Pressley MD ~ [employer] Control: Signed [facility] SCRN MAMM (CAD)W/JINNY BILATo n 11-17-2024 SCRN MAMM (CAD)W/JINNY BILAT [facility] Imaging Services [address] [place] [address] SCRN MAMM (CAD)W/JINNY BILAT MR#: [id number] Acct: [id number] Name: ANNE DUARTE GENA Rep #: [id number] : 1945 F 78 From: Ngoc López MD PCP: Dr. Shannan Pressley MD Status: REG CLI Study: SCRN MAMM (CAD)W/JINNY BILAT Date of Exam: 02/03 Exam# [id number] Ordering Dr: Kristina Richard MD EXAM: SCRN MAMM (CAD)W/JINNY BILAT DATE: 11/17/2024 CLINICAL HISTORY: F, Age 78 y/o, SCREENING TECHNIQUE: SCRN MAMM (CAD)W/JINNY BILAT COMPARISON: Prior exam(s) dated 11/04/2023, 09/16/2022, 07/26/2021. FINDINGS: TISSUE DENSITY: There are scattered areas of fibroglandular density. Bilateral Breast Mammographic Findings: No significant masses, calcifications or other abnormalities are identified. BI/SCRN MAMM (CAD)W/JINNY BILAT IMPRESSION: There is no mammographic evidence of malignancy. OVERALL FINAL ASSESSMENT BI-RADS 1: NEGATIVE. RECOMMEND ANNUAL MAMMOGRAPHIC SCREENING. RECOMMENDATION: Routine annual follow-up in 1 Year A letter with findings and recommendations will be mailed to the patient. Reading Location: [facility] CC: Dr. Kristina Richard MD; Dr. Shannan Pressley MD [employer] Control: Signed [facility] Surgery Visit Reporton 11-08 Surgery Visit Report [facility] [address] [place] [address]. [address] [place] [address] OFFICE VISIT Date of Service: 11/08/24 MR#: [id number] Acct: [id number] Name: ANNE DUARTE GENA Rep #: [id number] : 1945 Provider: Dr. Davie richard MD Age/Sex: 78/F Location: [facility] Status: Signed Intake Vital Signs 09/30/24 13:42 11/08/24 08:26 Height 5 ft 5 ft Weight: 195 lb BMI 38.0 BP 169/118 H 142/68 H Blood Pressure Location Rt brachial Rt radial Position Sitting Sitting Respiration 18 16 Intake Visit Reasons: REVIEW CT DISCUSS SX Chief Complaint: thyroid biopsy Duty Engineer Required: No Is patient in pain?: No Allergies aspirin Allergy (Verified 11/08/24 08:26) Unknown codeine Allergy (Verified 11/08/24 08:26) Unknown Sulfa (Sulfonamide Antibiotics) Allergy (Verified 11/08/24 08:26) Unknown Medications ???Medication ???Instructions ???Recorded ???Confirmed ???Type Omeprazole [Prilosec] 40 mg PO DAILY 10/21/14 11/08/24 H istory cholecalciferol (vitamin D3) 25 25 mcg PO DAILY 07/27/21 11/08/24 History mcg (1,000 unit) capsule conjugated estrogens 0.625 mg/gram 1.25 mg vaginal QWEEK 07/27/21 0 11/08/24 History vaginal cream (Premarin) methotrexate sodium 2.5 mg tablet See Rx Instructions .Route .COMPL EX 07/27/21 11/08/24 History nortriptyline 25 mg capsule 25 mg PO QHS 07/27/21 11/08/24 His tory zinc 50 mg tablet 50 mg PO QODAY 07/27/21 11/08/24 H istory latanoprost 0.005 % eye drops 1 drp EACH EYE QHS 08/20/21 History loratadine 10 mg tablet 10 mg PO DAILY 08/20/21 11/08/24 H istory Lactobacillus acidophilus and 1 cap PO DAILY 10/31/22 11/08/24 H istory rhamnosus 15 billion cell capsule (Probiotic) losartan 50 mg tablet 50 mg PO QDAY 04/19/24 11/08/24 Hi story Potassium 1 tab PO 3XW LOW K+ 07/01/2411/08 History calcium carbonate (Calcium 600) 600 mg PO DAILY 07/01/24 11/08/24 History cranberry extract 500 mg capsule 500 mg PO QDAY 07/01/24 11/08/24 H istory docusate sodium 50 mg capsule 50 mg PO QDAY 07/01/24 11/08/24 Hi story (Stool Softener) folic acid 1 mg tablet 2 mg PO BID 07/01/24 11/08/24 Hist ory tramadol 50 mg tablet 50 mg PO TID PRN 07/01/24 11/08/24 History balsalazide 750 mg capsule 750 mg PO BID #180 caps 09/17/24 0 11/08/24 Rx Have you fallen in the past year?: No PFSH Medical History Mass of right side of neck Brain aneurysm Rash Restless legs Rheumatoid arthritis History of rheumatic fever Wears glasses Post-menopausal Back pain Migraine headache Gastric reflux Non-smoker Shortness of breath on exertion Leg cramps History of pain when walking GERD (gastroesophageal reflux disease) Arthritis Rectal bleeding Surgical History Hx of brain surgery Hx of total hip arthroplasty Hx of bladder repair surgery Hx of breast biopsy Hx of arthroscopic knee surgery Hx of arthroscopy of shoulder Hx of appendectomy Hx of hysterectomy Family History Father Cancer bladder Mother Heart disease Social History Smoking Status: Never smoker alcohol intake: never substance use type: does not use what type of physical activity do you participate in: none HPI HPI HPI: Patient is a 78-year-old female who presents for evaluation of newly diagnosed right thyroid nodule. Patient last seen 09/30/2024. In the interval since her last visit she completed CT imaging of her neck to assess for compressive signs and also tried to exclude any substernal extension. She presents today's visit with her daughters. She denies any interval health changes. Below is recapitulated from patient's prior visit for ease of review: Patient is a 78-year-old female who presents for evaluation of newly diagnosed right thyroid nodule. They are referred for surgical consultation from Dr. Richard. This was discovered incidentally as part of a wellness exam and she was referred for immediate ultrasound exam. She states since the ultrasound exam she believes she has felt this area more but questions whether or not this perception is just in her head. Additionally she remarks that sometimes when she is lying flat at night she feels like the thyroid may give her the perception that she cannot breathe. She states that she does not routinely sleep on her back and therefore this sensation occurs with a frequency of less than 1 time per week. They do not experience difficulty with swallowing. They do not complain of a new cough. They do not appreciate new voice changes. They do have a history of snoring/sleep apnea. Additionally, their (more content not included)... Normal [facility] Absolute lymphocyte countOrd ered By: Sanjana Thomas on 11-01-2024 Lymphocytes Auto (Unsp spec) [#/Vol] 1.11 10*3/uL 0.83-4.51 [facility] Absolute neutrophil countOrd ered By: Sanjana Thomas on 11-01-2024 Neutrophils (Bld) [#/Vol] 1.9 10*3/uL Low 2.0-7.7 [facility] Anion gap in Serum or Plasma Ordered By: Sanjana Thomas on 11-01-2024 Anion gap [Moles/Vol] 11 mmol/L - [facility] Automated lymphocyte count a s percentage of total leukocytesOrdered By: Sanjana Thomas on 11-01-2024 Lymphocytes/100 WBC Auto (Unsp spec) 32.2 % [facility] BUN/creatinine ratioOrdered By: Snajanayola Thomas on 11-01-2024 Urea nitrogen/Creatinine [Mass ratio] 18.9 mg/mg 02-28 [facility] Basophil percentageOrdered B y: Sanjana Thomas on 11-01-2024 Basophils/100 WBC (Bld) 1.2 % High 0-1 [facility] Bilirubin, totalOrdered By: Sanjanayola Thomas on 11-01-2024 Bilirubin [Mass/Vol] 0.31 mg/dL 0.00-1.30 [facility] CBC W/Diff, Automatedon 10-11 Absolute Lymph 1.11 X10 3/uL Normal 0.83-4.51 [facility] Comment on above: Performed By: #### L 100.0100, L500.4050 #### [facility] [address] [place], [address] Absolute Neut 1.9 X10 3/uL Low 2.0-7.7 [facility] Comment on above: Performed By: #### L 100.0100, L500.4050 #### [facility] [address] [place], [address] Basophils/100 WBC (Bld) 1.2 % High 0-1 [facility] Comment on above: Performed By: #### L 100.0100, L500.4050 #### [facility] [address] [place], [address] Eosinophils/100 WBC (Bld) 1.4 % Normal 0-5 [facility] Comment on above: Performed By: #### L 100.0100, L500.4050 #### [facility] [address] [place], [address] Erythrocyte distribution width (RBC) [Ratio] 15.1 % High 11.6-14.6 [facility] Comment on above: Performed By: #### L 100.0100, L500.4050 #### [facility] [address] [place], [address] Hematocrit (Bld) [Volume fraction] 42.2 % Normal 37-47 [facility] Comment on above: Performed By: #### L 100.0100, L500.4050 #### [facility] [address] [place], [address] Hemoglobin (Bld) [Mass/Vol] 12.8 g/dL Normal 12.0-15.0 [facility] Comment on above: Performed By: #### L 100.0100, L500.4050 #### [facility] [address] [place], [address] IG% 0.300 Normal 0.0-0.9 [facility] Comment on above: Result Comment: IG% - Immature Granulocytes (promyelocytes, myelocytes and metamyelocytes) > 1% indicates that a LEFT SHIFT is Present. Performed By: #### L 100.0100, L500.4050 #### [facility] [address] [place], [address] Lymphocytes/100 WBC (Bld) 32.2 % Normal 19-41 [facility] Comment on above: Performed By: #### L 100.0100, L500.4050 #### [facility] [address] [place], [address] MCH (RBC) [Entitic mass] 29.9 pg Normal 27.0-32.0 [facility] Comment on above: Performed By: #### L 100.0100, L500.4050 #### [facility] [address] [place], [address] MCHC (RBC) [Mass/Vol] 30.3 g/dL Low 32-36 [facility] Comment on above: Performed By: #### L 100.0100, L500.4050 #### [facility] [address] [place], [address] MCV (RBC) [Entitic vol] 98.6 fL Normal 81-99 [facility] Comment on above: Performed By: #### L 100.0100, L500.4050 #### [facility] [address] [place], [address] Monocytes/100 WBC (Bld) 10.4 % High 0-10 [facility] Comment on above: Performed By: #### L 100.0100, L500.4050 #### [facility] [address] [place], [address] Neutrophils/100 WBC (Bld) 54.5 % Normal 47-70 [facility] Comment on above: Performed By: #### L 100.0100, L500.4050 #### [facility] [address] [place], [address] Nucleated RBC (Bld) [#/Vol] 0 10*3/uL Normal 0-5 [facility] Comment on above: Performed By: #### L 100.0100, L500.4050 #### [facility] [address] [place], [address] Platelet mean volume (Bld) [Entitic vol] 10.9 fL Normal 6.2-12.0 [facility] Comment on above: Performed By: #### L 100.0100, L500.4050 #### [facility] [address] [place], [address] Platelets (Bld) [#/Vol] 261 10*3/uL Normal 150-450 [facility] Comment on above: Performed By: #### L 100.0100, L500.4050 #### [facility] [address] [place], [address] RBC (Bld) [#/Vol] 4.28 10*6/uL Normal 4.2-5.4 [facility] Comment on above: Performed By: #### L 100.0100, L500.4050 #### [facility] [address] [place], [address] RDW SD 54.3 fl High 35.1-43.9 [facility] Comment on above: Performed By: #### L 100.0100, L500.4050 #### [facility] [address] [place], [address] WBC (Bld) [#/Vol] 3.5 10*3/uL Low 4.4-11.0 [facility] Comment on above: Performed By: #### L 100.0100, L500.4050 #### [facility] [address] [place], [address] Carbon dioxide, total [Moles /volume] in Central venous bloodOrdered By: Sanjana Thomas on 11-01-2024 CO2 [Moles/Vol] 27.7 mmol/L 21.0-32.0 [facility] Chloride assayOrdered By: Agus Thomas on 11-01-2024 Chloride [Moles/Vol] 103 mmol/L 98-108 [facility] Comprehensive Metabolic Prof ilon 11-01-2024 Albumin [Mass/Vol] 3.7 g/dL Normal 3.4-4.8 [facility] Comment on above: Performed By: #### L 100.0100, L500.4050 #### [facility] [address] [place], [address] Albumin/Globulin [Mass ratio] 1.3 {ratio} Normal 0.9-2.4 [facility] Comment on above: Performed By: #### L 100.0100, L500.4050 #### [facility] [address] [place], [address] ALK PHOS 74 U/L Normal 35-104 [facility] Comment on above: Performed By: #### L 100.0100, L500.4050 #### [facility] [address] [place], [address] ALT [Catalytic activity/Vol] 11 U/L Normal <=34 [facility] Comment on above: Performed By: #### L 100.0100, L500.4050 #### [facility] [address] [place], [address] AST [Catalytic activity/Vol] 18 U/L Normal <=31 [facility] Comment on above: Performed By: #### L 100.0100, L500.4050 #### [facility] [address] [place], [address] Bilirubin [Mass/Vol] 0.31 mg/dL Normal 0.00-1.30 [facility] Comment on above: Performed By: #### L 100.0100, L500.4050 #### [facility] [address] [place], [address] BUN/CRE 18.9 RATIO Normal 10-20 [facility] Comment on above: Performed By: #### L 100.0100, L500.4050 #### [facility] [address] [place], [address] Calcium [Mass/Vol] 8.8 mg/dL Normal 7.6-11.0 [facility] Comment on above: Performed By: #### L 100.0100, L500.4050 #### [facility] [address] [place], [address] Chloride [Moles/Vol] 103 mmol/L Normal 98-108 [facility] Comment on above: Performed By: #### L 100.0100, L500.4050 #### [facility] [address] [place], [address] CO2 [Moles/Vol] 27.7 mmol/L Normal 21.0-32.0 [facility] Comment on above: Performed By: #### L 100.0100, L500.4050 #### [facility] [address] [place], [address] Creatinine [Mass/Vol] 0.64 mg/dL Low 0.70-1.20 [facility] Comment on above: Performed By: #### L 100.0100, L500.4050 #### [facility] [address] [place], [address] GAP 11 Normal 5-15 [facility] Comment on above: Performed By: #### L 100.0100, L500.4050 #### [facility] [address] [place], [address] GFR/1.73 sq M.predicted among non-blacks MDRD (S/P/Bld) [Vol rate/Area] 90 mL/min/{1.73_m2} Normal >60 [facility] Comment on above: Result Comment: mL/m in/1.73m2 CKD-EPI Creatinine Equation (2020) Performed By: #### L 100.0100, L500.4050 #### [facility] [address] [place], [address] Globulin (S) [Mass/Vol] 2.9 g/dL Normal 2.2-4.2 [facility] Comment on above: Performed By: #### L 100.0100, L500.4050 #### [facility] [address] [place], [address] Glucose [Mass/Vol] 74 mg/dL Normal 70-99 [facility] Comment on above: Performed By: #### L 100.0100, L500.4050 #### [facility] [address] [place], [address] Potassium [Moles/Vol] 3.7 mmol/L Normal 3.3-5.1 [facility] Comment on above: Performed By: #### L 100.0100, L500.4050 #### [facility] [address] [place], [address] Sodium [Moles/Vol] 141 mmol/L Normal 133-145 [facility] Comment on above: Performed By: #### L 100.0100, L500.4050 #### [facility] [address] [place], [address] T PROT 6.5 g/dL Normal 5.9-8.4 [facility] Comment on above: Performed By: #### L 100.0100, L500.4050 #### [facility] [address] [place], [address] Urea nitrogen [Mass/Vol] 12 mg/dL Normal 4-19 [facility] Comment on above: Performed By: #### L 100.0100, L500.4050 #### [facility] [address] [place], [address] Eosinophil percentageOrdered By: Sanjana Thomas on 11-01-2024 Eosinophils/100 WBC (Bld) 1.4 % 0-5 [facility] Erythrocyte distribution wid th ratioOrdered By: Sanjana Thomas on 11-01-2024 Erythrocyte distribution width (RBC) [Ratio] 15.1 % High 11.6-14.6 [facility] Erythrocyte distribution wid th standard deviationOrdered By: Sanjana Thomas on 11-01-2024 Erythrocyte distribution width (RBC) [Ratio] 54.3 fl High 35.1-43.9 [facility] Glomerular filtration rate ( GFR) estimation/1.73 sq m using serum, plasma, or whole bOrdered By: Sanjana Thomas on 11-01-2024 GFR/1.73 sq M.predicted among non-blacks MDRD (S/P/Bld) [Vol rate/Area] 90 mL/min/{1.73_m2} >60 [facility] Comment on above: mL/min/1.73m2 CKD-EP I Creatinine Equation (2020) Hematocrit Auto (Bld) [Volum e fraction]Ordered By: Sanjana Thomas on 11-01-2024 Hematocrit (Bld) [Volume fraction] 42.2 % 37-47 [facility] Hemoglobin measurementOrdere d By: Sanjana Thomas on 11-01-2024 Hemoglobin (Bld) [Mass/Vol] 12.8 g/dL 12.0-15.0 [facility] Immature granulocytes/100 WB C Auto (Bld)Ordered By: Sanjana Thomas on 11-01-2024 Immature granulocytes/100 WBC (Bld) 0.300 % 0.0-0.9 [facility] Comment on above: IG% - Immature Granu locytes (promyelocytes, myelocytes and metamyelocytes) > 1% indicates that a LEFT SHIFT is Present. Laboratory - Chemistry and C hemistry - challengeOrdered By: Sanjana Thomas on 11-01-2024 AST [Catalytic activity/Vol] 18 U/L <32 [facility] MCV (mean corpuscular volume ) determinationOrdered By: Sanjana Thomas on 11-01-2024 MCV (RBC) [Entitic vol] 98.6 fL 81-99 [facility] Mean corpuscular hemoglobin (MCH) determinationOrdered By: Sanjana Thomas on 11-01-2024 MCH (RBC) [Entitic mass] 29.9 pg 27.0-32.0 [facility] Mean corpuscular hemoglobin concentration (MCHC) determinationOrdered By: Sanjana Thomas on 11-01-2024 MCHC (RBC) [Mass/Vol] 30.3 g/dL Low 32-36 [facility] Mean platelet volume determi nationOrdered By: Sanjana Thomas on 11-01-2024 Platelet mean volume (Bld) [Entitic vol] 10.9 fL 6.2-12.0 [facility] Monocyte percentageOrdered B y: Sanjana Thomas on 11-01-2024 Monocytes/100 WBC (Bld) 10.4 % High 0-10 [facility] Neutrophil percentageOrdered By: Sanjana Thomas on 11-01-2024 Neutrophils/100 WBC (Bld) 54.5 % 47-70 [facility] Nucleated red blood cell per centageOrdered By: Sanjana Thomas on 11-01-2024 Nucleated RBC/100 WBC (Bld) [Ratio] 0 % 0-5 [facility] Platelet countOrdered By: Agus Thomas on 11-01-2024 Platelets (Bld) [#/Vol] 261 10*3/uL 150-450 [facility] Potassium measurement (mass/ volume)Ordered By: Sanjana Thomas on 11-01-2024 Potassium (Unsp spec) [Mass/Vol] 3.7 mmol/L 3.3-5.1 [facility] RBC Auto (Bld) [#/Vol]Ordere d By: Sanjana Thomas on 11-01-2024 RBC (Bld) [#/Vol] 4.28 10*6/uL 4.2-5.4 [facility] Serum creatinine measurement (mass/volume)Ordered By: Sanjana Thomas on 11-01-2024 Creatinine [Mass/Vol] 0.64 mg/dL Low 0.70-1.20 [facility] Serum globulin measurementOr dered By: Sanjana Thomas on 11-01-2024 Globulin (S) [Mass/Vol] 2.9 g/dL 2.2-4.2 [facility] Serum glucose measurement (m ass/volume)Ordered By: Sanjana Thomas on 11-01-2024 Glucose [Mass/Vol] 74 mg/dL 70-99 [facility] Serum or plasma alanine solitario otransferase (ALT) measurementOrdered By: Sanjana Thomas on 11-01-2024 ALT [Catalytic activity/Vol] 11 U/L <35 [facility] Serum or plasma albumin cesilia urement (mass/volume)Ordered By: Sanjana Thomas on 11-01-2024 Albumin [Mass/Vol] 3.7 g/dL 3.4-4.8 [facility] Serum or plasma albumin/glob ulin mass ratioOrdered By: Sanjana Thomas on 11-01-2024 Albumin/Globulin [Mass ratio] 1.3 {ratio} 0.9-2.4 [facility] Serum or plasma alkaline liv sphatase measurementOrdered By: Sanjana Thomas on 11-01-2024 ALP [Catalytic activity/Vol] 74 U/L 35-104 [facility] Serum or plasma calcium cesilia urement (mass/volume)Ordered By: Sanjana Thomas on 11-01-2024 Calcium [Mass/Vol] 8.8 mg/dL 7.6-11.0 [facility] Serum or plasma urea nitroge n measurement (mass/volume)Ordered By: Sanjana Thomas on 11-01-2024 Urea nitrogen [Mass/Vol] 12 mg/dL 4-19 [facility] Sodium levelOrdered By: Alvarez Thomas on 11-01-2024 Sodium [Moles/Vol] 141 mmol/L 133-145 [facility] Total proteinOrdered By: Eitan Thomas on 11-01-2024 Protein [Mass/Vol] 6.5 g/dL 5.9-8.4 [facility] White blood cell (WBC) count Ordered By: Sanjana Thomas on 11-01-2024 WBC (Bld) [#/Vol] 3.5 10*3/uL Low 4.4-11.0 [facility] Soft Tissue Neck W/WO Contra ston 10-27-2024 Soft Tissue Neck W/WO Contrast [facility] Imaging Services [address] [place] [address] Soft Tissue Neck W/WO Contrast MR#: [id number] Acct: [id number] Name: ANNE DUARTE GENA Rep #: [id number] : 1945 F 78 From: Colt Felipe MD PCP: Dr. Shannan Pressley MD Status: REG CLI Study: Soft Tissue Neck W/WO Contrast Date of Exam: 0 10/27/24 Exam# [id number] Ordering Dr: Davie Mckeon MD PROCEDURE: SOFT TISSUE NECK W/WO CONTRAST 10/27/2024 REASON FOR EXAM: RIGHT NECK MASS TECHNIQUE: SOFT TISSUE NECK W/WO CONTRAST CONTRAST: 100 cc Isovue 370 One or more dose reduction techniques were used (e.g., Automated exposure control, adjustment of the mA and/or kV according to patient size, use of iterative reconstruction technique). FINDINGS: There is a irregular goiter involving the right lobe of the thyroid gland which extends just above the level of the sternal notch and displaces the trachea slightly to the left side. Superior extent is just at the level of the hyoid bone. In the axial plane this measures 6.3 x 4.6 cm and in the craniocaudal direction, this measures approximately 7.3 cm. Symmetric orbits. Normal nasopharynx and parotid glands. Normal oral cavity and tongue base. CT/Soft Tissue Neck W/WO Contrast IMPRESSION: Right-sided thyroid goiter measured above. Negative for adenopathy. Reading Location: [facility] CC: Dr. Shannan Pressley MD; Dr. Davie Mckeon MD [employer] Loom Control: Signed Normal [facility] Special Stain Group IIon Special Stain Group II --------- Patient Age/Sex Location Account Attending Physician ANNE DUARTE 78/F LABSPEC [id number] Dr. Davie Mckeon MD Specimen: [id number] Received: 09/30/24 Status: HARSHAL Velazquez Num: [id number] Spec Type: ASP OUT Subm Dr: Dr. Davie Mckeon MD HEADER OPERATION: Fine needle aspiration of right thyroid mass PRE-OP DIAGNOSIS: Right thyroid mass TISSUE SUBMITTED: A- Right thyroid mass fluid DIAGNOSIS CYTOLOGY A. Right thyroid mass, fine needle aspiration: * Atypical cells of undetermined significance (Raritan III). COMMENT The specimen is evaluated at the time of biopsy by Dr. Romeo. Immediate Evaluation = 1. Rare cell, blood. 2. Few cells, blood. CYTOLOGY STUDY Slides are reviewed. CYTOLOGY GROSS A. Received is 30 ml of red-cloudy fluid cytolyt with particles and 4 smears labeled with the patient's name and and designated per the requisition as Right thyroid mass. Submitted for cytology (2 Diff-Quik smears, 2 pap-stained smears, cytospin preparation). 09/30/2024 CPT: 69198 ,15272 ADDENDUM Addendum 1 Entered: 11/01/24 AFIRMA RESULTS REPORT - A RESULTS INTERPRETATION: The result of this 5.9 cm Raritan III nodule A is Afirma GSC benign, which suggests a low risk of cancer of approximately 4%. Treatment like a cytologically benign nodule may be appropriate, including clinical correlation. Afirma XA is not performed on [facility] Benign nodules. TERT promoter region analysis is not performed on [facility] Patient Age/Sex Location Account Attending Physician ANNE DUARTE 78/F LABSPEC [id number] Dr. Davie Mckeon MD ADDENDUM (Continued) Benign nodules. Please see complete report in e-chart or EMR Addendum Signed (signature on file) Dr. Fany Romeo MD 11/01/24 1005 Signed (signature on file) Dr. Fany Romeo MD 10/14/24 1617 Normal [facility] Comment on above: Performed By: #### L 100.0100, L500.4050 #### [facility] [address] [place] [address]. [place], [place], [address] Surgery Visit Reporton 09-30 Surgery Visit Report [facility] [address] [place] [address]. [address] [place] [address] OFFICE VISIT Date of Service: 09/30/24 MR#: [id number] Acct: [id number] Name: ANNE DUARTE GENA Rep #: [id number] : 1945 Provider: Dr. 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 Is patient in pain?: No Allergies aspirin Allergy (Verified 09/30/24 13:43) Unknown codeine Allergy (Verified 09/30/24 13:43) Unknown Sulfa (Sulfonamide Antibiotics) Allergy (Verified 09/30/24 13:43) Unknown Medications ???Medication ???Instructions ???Recorded ???Confirmed ???Type Omeprazole [Prilosec] 40 mg PO DAILY 10/21/14 09/30/24 H istory cholecalciferol (vitamin D3) 25 25 mcg PO DAILY 07/27/21 09/30/24 History mcg (1,000 unit) capsule conjugated estrogens 0.625 mg/gram 1.25 mg vaginal QWEEK 07/27/21 0 09/30/24 History vaginal cream (Premarin) methotrexate sodium 2.5 mg tablet See Rx Instructions .Route .COMPL EX 07/27/21 09/30/24 History nortriptyline 25 mg capsule 25 mg PO QHS 07/27/21 09/30/24 His tory zinc 50 mg tablet 50 mg PO QODAY 07/27/21 09/30/24 H istory latanoprost 0.005 % eye drops 1 drp EACH EYE QHS 08/20/21 History loratadine 10 mg tablet 10 mg PO DAILY 08/20/21 09/30/24 H istory Lactobacillus acidophilus and 1 cap PO DAILY 10/31/22 09/30/24 H istory rhamnosus 15 billion cell capsule (Probiotic) losartan 50 mg tablet 50 mg PO QDAY 04/19/24 09/30/24 Hi story Potassium 1 tab PO 3XW LOW K+ 07/01/2409/30 History calcium carbonate (Calcium 600) 600 mg PO DAILY 07/01/24 09/30/24 History cranberry extract 500 mg capsule 500 mg PO QDAY 07/01/24 09/30/24 H istory docusate sodium 50 mg capsule 50 mg PO QDAY 07/01/24 09/30/24 Hi story (Stool Softener) folic acid 1 mg tablet 2 mg PO BID 07/01/24 09/30/24 Hist ory tramadol 50 mg tablet 50 mg PO TID PRN 07/01/24 09/30/24 History balsalazide 750 mg capsule 750 mg PO BID #180 caps 09/17/24 0 09/30/24 Rx Have you fallen in the past year?: No PFSH Medical History (Updated 09/30/24 @ 17:[address] Davie Mckeon MD) Mass of right side of neck Brain aneurysm Rash Restless legs Rheumatoid arthritis History of rheumatic fever Wears glasses Post-menopausal Back pain Migraine headache Gastric reflux Non-smoker Shortness of breath on exertion Leg cramps History of pain when walking GERD (gastroesophageal reflux disease) Arthritis Rectal bleeding Surgical History Hx of brain surgery Hx of total hip arthroplasty Hx of bladder repair surgery Hx of breast biopsy Hx of arthroscopic knee surgery Hx of arthroscopy of shoulder Hx of appendectomy Hx of hysterectomy Family History Father Cancer bladder Mother Heart disease Social History Smoking Status: Never smoker alcohol intake: never substance use type: does not use what type of physical activity do you participate in: none HPI HPI HPI: Patient is a 78-year-old female who presents for evaluation of newly diagnosed right thyroid nodule. They are referred for surgical consultation from Dr. Richard. This was discovered incidentally as part of a wellness exam and she was referred for immediate ultrasound exam. She states since the ultrasound exam she believes she has felt this area more but questions whether or not this perception is just in her head. Additionally she remarks that sometimes when she is lying flat at night she feels like the thyroid may give her the perception that she cannot breathe. She states that she does not routinely sleep on her back and therefore this sensation occurs with a frequency of less than 1 time per week. They do not experience difficulty with swallowing. They do not complain of a new cough. They do not appreciate new voice changes. They do have a history of snoring/sleep apnea. Additionally, their weight has been stable and they do not have a history of weight gain/loss or an inability to lose despite intentional effort. There is no history of recent fatigue. They do have a history of heat and cold intolerance. Other symptoms include: Pertinent positives: Unusual sweating (nocturnal), pertinent negatives: Denial of palpitations, anxiety, irregular bowel habits. They do not have a family history of thyroid disorders or endocrinopathies. There is no hist (more content not included)... Normal [facility] Head/Neck Soft Tissueon 04-2 Head/Neck Soft Tissue [facility] Imaging Services [address] [address] Head/Neck Soft Tissue MR#: [id number] Acct: [id number] Name: ANNE DUARTE Rep #: [id number] : 1945 F 78 From: Anthony flores MD PCP: Dr. Kristina Richard MD Status: REG CLI Study: Head/Neck Soft Tissue Date of Exam: 08/30/24 Exam# [id number] Ordering Dr: Kristina Richard MD EXAM: Ultrasound of the cervical region. CLINICAL HISTORY: Pulsatile mass in the right base of the neck. COMPARISON: None TECHNIQUE: Sonographic imaging was performed. FINDINGS: The right lobe of the thyroid gland is diffusely enlarged and measures 7.3 cm x 5 cm 3.4 cm. It is of heterogeneous echotexture. There is a dominant 5.9 cm 5.3 cm x 3.1 cm complex solid mass in the lower pole of the right lobe of the thyroid. Biopsy recommended. The left lobe of the thyroid measures 3.7 cm x 1.2 cm x 1.7 cm. It is of heterogeneous echotexture. There is evidence of a 10 mm x 9 mm x 7 mm partially calcified nodule in the lower pole. US/Head/Neck Soft Tissue IMPRESSION: The palpable mass at the base of the right side of the neck corresponds to a large heterogeneous lobe of the thyroid on the right side with a dominant complex mass measuring 5.9 cm 5.3 cm 3.1 cm. Biopsy recommended. Reading Location: [place] [address] CC: Dr. Kristina Richard MD [employer] Control: Signed Normal [facility] Absolute lymphocyte countOrd ered By: Sanjana Thomas on 08-12-2024 Lymphocytes Auto (Unsp spec) [#/Vol] 1.30 10*3/uL 0.83-4.51 [facility] Absolute neutrophil countOrd ered By: Sanjana Thomas on 08-12-2024 Neutrophils (Bld) [#/Vol] 2.6 10*3/uL 2.0-7.7 [facility] Anion gap in Serum or Plasma Ordered By: Sanjana Thomas on 08-12-2024 Anion gap [Moles/Vol] 11 mmol/L 5-15 [facility] Automated blood erythrocyte countOrdered By: Sanjana Thomas on 08-12-2024 RBC (Bld) [#/Vol] 4.51 10*6/uL Normal 4.2-5.4 [facility] Comment on above: Performed By: #### L 100.0100, L500.4050 #### [facility] [address] [place], [address] Automated blood hematocrit ( percentage)Ordered By: Sanjana Thomas on 08-12-2024 Hematocrit (Bld) [Volume fraction] 44.1 % Normal 37-47 [facility] Comment on above: Performed By: #### L 100.0100, L500.4050 #### [facility] [address] [place], [address] Automated lymphocyte count a s percentage of total leukocytesOrdered By: Sanjana Thomas on 08-12-2024 Lymphocytes/100 WBC (Bld) 30.0 % Normal - [facility] Comment on above: Performed By: #### L 100.0100, L500.4050 #### [facility] [address] [place], [address] Lymphocytes/100 WBC Auto (Unsp spec) 30.0 % - [facility] BUN/creatinine ratioOrdered By: Sanjana Thomas on 08-12-2024 Urea nitrogen/Creatinine [Mass ratio] 20.6 mg/mg High 10-20 [facility] Basophil percentageOrdered B y: Sanjana Thomas on 08-12-2024 Basophils/100 WBC (Bld) 0.7 % Normal 0-1 [facility] Comment on above: Performed By: #### L 100.0100, L500.4050 #### [facility] [address] [place], [address] Bilirubin, totalOrdered By: Sanjana Thomas on 08-12-2024 Bilirubin [Mass/Vol] 0.23 mg/dL 0.00-1.30 [facility] CBC W/Diff, Automatedon 04-0 Absolute Lymph 1.30 X10 3/uL Normal 0.83-4.51 [facility] Comment on above: Performed By: #### L 100.0100, L500.4050 #### [facility] [address] [place], [address] Absolute Neut 2.6 X10 3/uL Normal 2.0-7.7 [facility] Comment on above: Performed By: #### L 100.0100, L500.4050 #### [facility] [address] [place], [address] IG% 0.200 Normal 0.0-0.9 [facility] Comment on above: Result Comment: IG% - Immature Granulocytes (promyelocytes, myelocytes and metamyelocytes) > 1% indicates that a LEFT SHIFT is Present. Performed By: #### L 100.0100, L500.4050 #### [facility] [address] [place], [address] Nucleated RBC (Bld) [#/Vol] 0 10*3/uL Normal 0-5 [facility] Comment on above: Performed By: #### L 100.0100, L500.4050 #### [facility] [address] [place], [address] RDW SD 55.6 fl High 35.1-43.9 [facility] Comment on above: Performed By: #### L 100.0100, L500.4050 #### [facility] [address] [place], [address] Carbon dioxide, total [Moles /volume] in Central venous bloodOrdered By: Sanjana Thomas on 08-12-2024 CO2 [Moles/Vol] 27.8 mmol/L 21.0-32.0 [facility] Chloride assayOrdered By: Agus Thomas on 08-12-2024 Chloride [Moles/Vol] 102 mmol/L 98-108 [facility] Comprehensive Metabolic Prof ilon 08-12-2024 Albumin [Mass/Vol] 4.0 g/dL Normal 3.4-4.8 [facility] Comment on above: Performed By: #### L 100.0100, L500.4050 #### [facility] [address] [place], [address] Albumin/Globulin [Mass ratio] 1.3 {ratio} Normal 0.9-2.4 [facility] Comment on above: Performed By: #### L 100.0100, L500.4050 #### [facility] [address] [place], [address] ALK PHOS 79 U/L Normal 35-104 [facility] Comment on above: Performed By: #### L 100.0100, L500.4050 #### [facility] [address] [place], [address] ALT [Catalytic activity/Vol] 10 U/L Normal <=34 [facility] Comment on above: Performed By: #### L 100.0100, L500.4050 #### [facility] [address] [place], [address] AST [Catalytic activity/Vol] 20 U/L Normal <=31 [facility] Comment on above: Performed By: #### L 100.0100, L500.4050 #### [facility] [address] [place], [address] Bilirubin [Mass/Vol] 0.23 mg/dL Normal 0.00-1.30 [facility] Comment on above: Performed By: #### L 100.0100, L500.4050 #### [facility] [address] [place], [address] BUN/CRE 20.6 RATIO High 10-20 [facility] Comment on above: Performed By: #### L 100.0100, L500.4050 #### [facility] [address] [place], [address] Calcium [Mass/Vol] 9.3 mg/dL Normal 7.6-11.0 [facility] Comment on above: Performed By: #### L 100.0100, L500.4050 #### [facility] [address] [place], [address] Chloride [Moles/Vol] 102 mmol/L Normal 98-108 [facility] Comment on above: Performed By: #### L 100.0100, L500.4050 #### [facility] [address] [place], [address] CO2 [Moles/Vol] 27.8 mmol/L Normal 21.0-32.0 [facility] Comment on above: Performed By: #### L 100.0100, L500.4050 #### [facility] [address] [place], [address] Creatinine [Mass/Vol] 0.66 mg/dL Low 0.70-1.20 [facility] Comment on above: Performed By: #### L 100.0100, L500.4050 #### [facility] [address] [place], [address] GAP 11 Normal 5-15 [facility] Comment on above: Performed By: #### L 100.0100, L500.4050 #### [facility] [address] [place], [address] GFR/1.73 sq M.predicted among non-blacks MDRD (S/P/Bld) [Vol rate/Area] 90 mL/min/{1.73_m2} Normal >60 [facility] Comment on above: Result Comment: mL/m in/1.73m2 CKD-EPI Creatinine Equation (2020) Performed By: #### L 100.0100, L500.4050 #### [facility] [address] [place], [address] Globulin (S) [Mass/Vol] 3.1 g/dL Normal 2.2-4.2 [facility] Comment on above: Performed By: #### L 100.0100, L500.4050 #### [facility] [address] [place], [address] Glucose [Mass/Vol] 103 mg/dL High 70-99 [facility] Comment on above: Performed By: #### L 100.0100, L500.4050 #### [facility] [address] [place], [address] Potassium [Moles/Vol] 4.1 mmol/L Normal 3.3-5.1 [facility] Comment on above: Performed By: #### L 100.0100, L500.4050 #### [facility] [address] [place], [address] Sodium [Moles/Vol] 141 mmol/L Normal 133-145 [facility] Comment on above: Performed By: #### L 100.0100, L500.4050 #### [facility] [address] [place], [address] T PROT 7.1 g/dL Normal 5.9-8.4 [facility] Comment on above: Performed By: #### L 100.0100, L500.4050 #### [facility] [address] [place], [address] Urea nitrogen [Mass/Vol] 14 mg/dL Normal 4-19 [facility] Comment on above: Performed By: #### L 100.0100, L500.4050 #### [facility] [address] [place], [address] Eosinophil percentageOrdered By: Sanjana Thomas on 08-12-2024 Eosinophils/100 WBC (Bld) 1.2 % Normal 0-5 [facility] Comment on above: Performed By: #### L 100.0100, L500.4050 #### [facility] [address] [place], [address] Erythrocyte distribution wid th (RBC) [Ratio]Ordered By: Sanjana Thomas on 08-12-2024 Erythrocyte distribution width (RBC) [Entitic vol] 55.6 fL High 35.1-43.9 [facility] Erythrocyte distribution wid th ratioOrdered By: Sanjana Thomas on 08-12-2024 Erythrocyte distribution width (RBC) [Ratio] 15.6 % High 11.6-14.6 [facility] Comment on above: Performed By: #### L 100.0100, L500.4050 #### [facility] [address] [place], [address] Erythrocyte distribution wid th standard deviationOrdered By: Sanjana Thomas on 08-12-2024 Erythrocyte distribution width (RBC) [Ratio] 55.6 fl High 35.1-43.9 [facility] GFR/1.73 sq M.predicted chloe g non-blacks MDRD (S/P/Bld) [Vol rate/Area]Ordered By: Sanjana Thomas on 08-12-2024 Estimated GFR (MDRD) Non-Af Amer 90 >60 [facility] Comment on above: mL/min/1.73m2 CKD-EP I Creatinine Equation (2020) Glomerular filtration rate ( GFR) estimation/1.73 sq m using serum, plasma, or whole bOrdered By: Sanjana Thomas on 08-12-2024 GFR/1.73 sq M.predicted among non-blacks MDRD (S/P/Bld) [Vol rate/Area] 90 mL/min/{1.73_m2} >60 [facility] Comment on above: mL/min/1.73m2 CKD-EP I Creatinine Equation (2020) Hemoglobin measurementOrdere d By: Sanjana Thomas on 08-12-2024 Hemoglobin (Bld) [Mass/Vol] 13.4 g/dL Normal 12.0-15.0 [facility] Comment on above: Performed By: #### L 100.0100, L500.4050 #### [facility] [address] [place], [address] Immature granulocytes/100 WB C Auto (Bld)Ordered By: Sanjana Thomas on 08-12-2024 Immature granulocytes/100 WBC (Bld) 0.200 % 0.0-0.9 [facility] Comment on above: IG% - Immature Granu locytes (promyelocytes, myelocytes and metamyelocytes) > 1% indicates that a LEFT SHIFT is Present. Laboratory - Chemistry and C hemistry - challengeOrdered By: Sanjana Thomas on 08-12-2024 AST [Catalytic activity/Vol] 20 U/L <32 [facility] Lymphocytes Auto (Unsp spec) [#/Vol]Ordered By: Sanjana Thomas on 08-12-2024 Lymphocytes (Bld) [#/Vol] 1.30 10*3/uL 0.83-4.51 [facility] MCV (mean corpuscular volume ) determinationOrdered By: Sanjana Thomas on 08-12-2024 MCV (RBC) [Entitic vol] 97.8 fL Normal 81-99 [facility] Comment on above: Performed By: #### L 100.0100, L500.4050 #### [facility] [address] [place], [address] Mean corpuscular hemoglobin (MCH) determinationOrdered By: Sanjana Thomas on 08-12-2024 MCH (RBC) [Entitic mass] 29.7 pg Normal 27.0-32.0 [facility] Comment on above: Performed By: #### L 100.0100, L500.4050 #### [facility] [address] [place], [address] Mean corpuscular hemoglobin concentration (MCHC) determinationOrdered By: Sanjana Thomas on 08-12-2024 MCHC (RBC) [Mass/Vol] 30.4 g/dL Low 32-36 [facility] Comment on above: Performed By: #### L 100.0100, L500.4050 #### [facility] [address] [place], [address] Mean platelet volume determi nationOrdered By: Sanjana Thomas on 08-12-2024 Platelet mean volume (Bld) [Entitic vol] 10.9 fL Normal 6.2-12.0 [facility] Comment on above: Performed By: #### L 100.0100, L500.4050 #### [facility] [address] [place], [address] Monocyte percentageOrdered B y: Sanjana Thomas on 08-12-2024 Monocytes/100 WBC (Bld) 8.8 % Normal 0-10 [facility] Comment on above: Performed By: #### L 100.0100, L500.4050 #### [facility] [address] [place], [address] Neutrophil percentageOrdered By: Sanjana Thomas on 08-12-2024 Neutrophils/100 WBC (Bld) 59.1 % Normal 47-70 [facility] Comment on above: Performed By: #### L 100.0100, L500.4050 #### [facility] [address] [place], [address] Nucleated red blood cell per centageOrdered By: Sanjana Thomas on 08-12-2024 Nucleated RBC/100 WBC (Bld) [Ratio] 0 % 0-5 [facility] Platelet countOrdered By: Agus Thomas on 08-12-2024 Platelets (Bld) [#/Vol] 278 10*3/uL Normal 150-450 [facility] Comment on above: Performed By: #### L 100.0100, L500.4050 #### [facility] [address] [place], [address] Potassium (Unsp spec) [Mass/ Vol]Ordered By: Sanjana Thomas on 08-12-2024 Potassium [Moles/Vol] 4.1 mmol/L 3.3-5.1 [facility] Potassium measurement (mass/ volume)Ordered By: Sanjana Thomas on 08-12-2024 Potassium (Unsp spec) [Mass/Vol] 4.1 mmol/L 3.3-5.1 [facility] Serum creatinine measurement (mass/volume)Ordered By: Sanjana Thomas on 08-12-2024 Creatinine [Mass/Vol] 0.66 mg/dL Low 0.70-1.20 [facility] Serum globulin measurementOr dered By: Sanjana Thomas on 08-12-2024 Globulin (S) [Mass/Vol] 3.1 g/dL 2.2-4.2 [facility] Serum glucose measurement (m ass/volume)Ordered By: Sanjana Thomas on 08-12-2024 Glucose [Mass/Vol] 103 mg/dL High 70-99 [facility] Serum or plasma alanine solitario otransferase (ALT) measurementOrdered By: Sanjana Thomas on 08-12-2024 ALT [Catalytic activity/Vol] 10 U/L <35 [facility] Serum or plasma albumin cesilia urement (mass/volume)Ordered By: Sanjana Thomas on 08-12-2024 Albumin [Mass/Vol] 4.0 g/dL 3.4-4.8 [facility] Serum or plasma albumin/glob ulin mass ratioOrdered By: Sanjana Thomas on 08-12-2024 Albumin/Globulin [Mass ratio] 1.3 {ratio} 0.9-2.4 [facility] Serum or plasma alkaline liv sphatase measurementOrdered By: Sanjana Thomas on 08-12-2024 ALP [Catalytic activity/Vol] 79 U/L 35-104 [facility] Serum or plasma calcium cesilia urement (mass/volume)Ordered By: Sanjana Thomas on 08-12-2024 Calcium [Mass/Vol] 9.3 mg/dL 7.6-11.0 [facility] Serum or plasma urea nitroge n measurement (mass/volume)Ordered By: Sanjana Thomas on 08-12-2024 Urea nitrogen [Mass/Vol] 14 mg/dL 4-19 [facility] Sodium levelOrdered By: Alvarez Thomas on 08-12-2024 Sodium [Moles/Vol] 141 mmol/L 133-145 [facility] Total proteinOrdered By: Eitan Thomas on 08-12-2024 Protein [Mass/Vol] 7.1 g/dL 5.9-8.4 [facility] White blood cell (WBC) count Ordered By: Sanjana Thomas on 08-12-2024 WBC (Bld) [#/Vol] 4.3 10*3/uL Low 4.4-11.0 [facility] Comment on above: Performed By: #### L 100.0100, L500.4050 #### [facility] [address] [place], [place], [id number] [place] Lambda Light Chainson 07-10-2024 FR KAPPA LT CHN 14.7 mg/L Normal 3.3-19.4 [facility] Comment on above: Order Comment: Test( s) 860460-Rqa. B1, Whole Blood was developed and its performance characteristics determined by [facility]. It has not been cleared or approved by the Food and Drug Administration. Performed By: #### L 3130.0010, L3300.8000, L500.4100 #### [facility] [address] [place], [place], [address] FR LAMBDA LT CH 11.3 mg/L Normal 5.7-26.3 [facility] Comment on above: Order Comment: Test( s) 283544-Yxw. B1, Whole Blood was developed and its performance characteristics determined by [facility]. It has not been cleared or approved by the Food and Drug Administration. Performed By: #### L 3130.0010, L3300.8000, L500.4100 #### [facility] [address] [place], [address] KAPPA/LAMBDA % 1.30 Normal 0.26-1.65 [facility] Comment on above: Order Comment: Test( s) 953025-Lqq. B1, Whole Blood was developed and its performance characteristics determined by [facility]. It has not been cleared or approved by the Food and Drug Administration. Performed By: #### L 3130.0010, L3300.8000, L500.4100 #### [facility] [address] [place], [address] Vitamin B1, Thiamineon 07-10 VIT B1 THIAMINE 125.7 nmol/L Normal 66.5-200.0 [facility] Comment on above: Order Comment: Test( s) 580464-Tlx. B1, Whole Blood was developed and its performance characteristics determined by [facility]. It has not been cleared or approved by the Food and Drug Administration. Result Comment: Perf ormed at: [facility] [id number] Mica Patcher: Cirilo Turner PhD, Phone: [phone] Performed at: [facility] [id number] Mica Patcher: Snow Sun MD, Phone: [phone] Performed By: #### L 3130.0010, L3300.8000, L5004108 #### [facility] [address] [place], [address] Cholesterol in VLDL [Mass/Vo l]Ordered By: Deangelo White on 07-06-2024 VLDL Cholesterol 16 mg/dL [facility] Folate measurementOrdered By : Deangelo White on 07-06-2024 Folate 40.00 ng/mL High 4.60-34.80 [facility] Folates, (Folic Acid)on 06-13 FOLATES 40.00 ng/mL High 4.60-34.80 [facility] Comment on above: Order Comment: N Performed By: #### L 100.0100, L500.4050 #### [facility] [address] [place], [address] Immunoglobulin light chains. kappa [Mass/Vol]Ordered By: Deangeloyuniel White on 07-06-2024 Free Martelle Light Chains, Quant 14.7 mg/L 3.3-19.4 [facility] Immunoglobulin light chains. kappa/Immunoglobulin light chains.lambda (S) [Mass ratio]Ordered By: Deangelo White on 07-06-2024 Free Martelle/Lambda Light Chain Ratio 1.30 0.26-1.65 [facility] L503.0106on 07-06-2024 Cobalamin (Vitamin B12) [Mass/Vol] 388 pg/mL Normal 180-914 [facility] Comment on above: Performed By: #### L 100.0100, L500.4050 #### [facility] [address] [place], [address] Laboratory - Chemistry and C hemistry - challengeOrdered By: Deangelo White on 07-06-2024 Cobalamin (Vitamin B12) [Mass/Vol] 388 pg/mL 180-914 [facility] Lambda free light chain cesilia urementOrdered By: Deangelo Tarastonya on 07-06-2024 Free Lambda Light Chains, Quant 11.3 mg/L 5.7-26.3 [facility] Lipid Profileon 07-06-2024 Cholesterol in LDL [Mass/Vol] 123 mg/dL Normal 0-130 [facility] Comment on above: Performed By: #### L 100.0100, L500.4050 #### [facility] [address] [place], [address] HDL Normal [facility] Comment on above: Result Comment: PUTT ING UNDER DIFFERENT REQ The drugs N-Acetylcysteine and Metamizole may falsely depress this assay. Performed By: #### L 3130.0010, L3300.8000, L500.4100 #### [facility] [address] [place], [address] TRIG Normal [facility] Comment on above: Result Comment: PUTT ING UNDER DIFFERENT REQ The drugs N-Acetylcysteine and Metamizole may falsely depress this assay. Performed By: #### L 3130.0010, L3300.8000, L500.4100 #### [facility] [address] [place], [address] CHOL Normal 200 [facility] Comment on above: Result Comment: PUTT ING UNDER DIFFERENT REQ Performed By: #### L 3130.0010, L3300.8000, L500.4100 #### [facility] [address] [place], [address] LDL Normal 0-130 [facility] Comment on above: Result Comment: PUTT ING UNDER DIFFERENT REQ Performed By: #### L 3130.0010, L3300.8000, L500.4100 #### [facility] [address] [place], [address] VLDL Normal 5-40 [facility] Comment on above: Result Comment: PUTT ING UNDER DIFFERENT REQ Performed By: #### L 3130.0010, L3300.8000, L500.4100 #### [facility] [address] [place], [address] Low density lipoprotein (LDL ) cholesterol measurementOrdered By: Deangelo White on 07-06-2024 Cholesterol in LDL [Mass/Vol] 123 mg/dL 0-130 [facility] Serum immunoglobulin kappa l ight chains/immunoglobulin lambda light chains mass ratioOrdered By: Deangelo White on 07-06-2024 Immunoglobulin light chains.kappa/Immunoglob ulin light chains.lambda (S) [Mass ratio] 1.30 0.26-1.65 [facility] Serum or plasma cholesterol in HDL measurement (mass/volume)Ordered By: Deangelo White on 07-06-2024 Cholesterol in HDL [Mass/Vol] 75 mg/dL >40 [facility] Comment on above: National Cholesterol Education Program (NCEP) guidelines:<40 mg/dL: Low HDL-cholesterol (major risk factor for CHD)>= 60 mg/dL: High HDL-cholesterol (negative risk factor for CHD)HDL-cholesterol is affected by a number of factors, e.g. smoking, exercise, hormones, sex and age. Serum or plasma cholesterol in VLDL measurement (mass/volume)Ordered By: Deangelo White on 07-06-2024 Cholesterol in VLDL [Mass/Vol] 16 mg/dL 5-40 [facility] Serum or plasma cholesterol measurement (mass/volume)Ordered By: Deangelo White on 07-06-2024 Cholesterol [Mass/Vol] 214 mg/dL High <201 [facility] Comment on above: Cholesterol level, D esirable <200 mg/dLBorderline high cholesterol 200-239 mg/dLHigh cholesterol >=240 mg/dLRecommendations of the NCEP Adult Treatment Panel for the following risk-cutoff thresholds for the [place] population. Serum or plasma immunoglobul in kappa light chains measurement (mass/volume)Ordered By: Deangelo White on 07-06-2024 Immunoglobulin light chains.kappa [Mass/Vol] 14.7 mg/L 3.3-19.4 [facility] Serum or plasma thiamine adriane surement (mass/volume)Ordered By: Deangelo White on 07-06-2024 Thiamine [Mass/Vol] 125.7 nmol/L 66.5-200.0 [facility] Comment on above: Performed at: [facility] [address] [id number] Director: Cirilo Turner PhD, Phone: [phone] at: [facility] [id number] Director: Snow Sun MD, Phone: [phone] TSH DL <= 0.005 mIU/L QnOrde red By: Deangelo White on 07-06-2024 Thyroid Stimulating Hormone (TSH) 3.290 uIU/mL 0.300-4.200 [facility] TSH Qn 3.290 uIU/mL 0.300-4.200 [facility] Thiamine [Mass/Vol]Ordered B y: Deangelo White on 07-06-2024 Whole Blood Vitamin B1 Level 125.7 nmol/L 66.5-200.0 [facility] Comment on above: Performed at: [facility] [id number] [place], [place] [id number] Director: Cirilo Turner PhD, Phone: [phone] at: [facility] [place] [id number] [place], [place] [id number] Director: Snow Sun MD, Phone: [phone] Thyroid Stim Hormone (TSH)on 07-06-2024 TSH 3.290 uIU/mL Normal 0.300-4.200 [facility] Comment on above: Performed By: #### L 100.0100, L500.4050 #### [facility] [address] [place], [address] Triglycerides measurementOrd ered By: Deangelo White on 07-06-2024 Triglyceride [Mass/Vol] 78 mg/dL <199 [facility] Comment on above: The drugs N-Acetylcy steine and Metamizole may falsely depress this assay. Normal range: <150 mg/dLBorderline High: 150-199 mg/dLHigh: 200-499 mg/dLVery High: >500 mg/dL Neurology Visit Reporton Neurology Visit Report [facility] [address] [place] [address] OFFICE VISIT Date of Service: 07/01/24 MR#: [id number] Acct: [id number] Name: ANNE DUARTE Rep #: [id number] : 1945 Provider: Dr. Deangelo melendez MD Age/Sex: 78/F Location: [facility] Status: Signed HPI HPI Chief Complaint: Establish Care Details: History: The patient is a 78-year-old right-handed woman with a past medical history of hypertension, rheumatoid arthritis and cerebral aneurysm rupture in 2015 who presents for neurological evaluation. She is accompanied by her daughter. In 2015 she experienced acute onset severe headache and neck pain. On hospital evaluation she was found to have an intracranial hemorrhage and a ruptured cerebral aneurysm. She underwent intracranial surgery and clipping of the cerebral aneurysm (on imaging the aneurysm clip appears to be in the region of the right internal carotid artery at the bifurcation of the middle cerebral artery). A SOFTWARE DEVELOPER INTERN shunt was placed for period of time then this was subsequently removed. 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 She also began to have frequent headaches following her cerebral aneurysm rupture. She experienced only occasional headaches without associated nausea prior to her cerebral aneurysm rupture. Since her aneurysm rupture she has experienced occasional nausea with her headaches. She denies having photophobia or phonophobia. Her headaches are localized to the occipital and right frontal head region. Her headaches occur daily but are not continuous. Severe headaches occur about 1 day/month. She, at times, awakens with a headache. She is unaware of any triggers for her headaches. Her headaches are adequately alleviated with acetaminophen (total daily dose is up to 1500 mg). She has had bilateral cataract surgery. She has had memory difficulties since the beginning of 2023. She has a tendency to forget conversations and forget some recent events. She remains independent in her daily activities except that she has not been driving since her cerebral aneurysm rupture. She lives at home with her daughter. She sees a livestock feeder for rheumatoid arthritis and is on methotrexate. She has had a right total hip replacement. She has had prior left shoulder surgery. She has arthritic pain in the hands and left hip. She has low back pain. She states that on prior assessment, lumbar surgery was not recommended. She denies having neck pain. She denies having numbness. She denies having focal weakness. She denies having dizziness. She has had some gait imbalance. She uses a cane. Past Medical History: As above. There is no history of diabetes mellitus, heart disease, lung disease, seizure, thyroid disease, cancer, renal disease, sleep apnea or hyperlipidemia. She does not have any history of stroke apart from the vascular event that occurred with her subarachnoid hemorrhage in 2014. Social History: There is no history of smoking tobacco. There is no history of alcohol abuse or illicit drug use. She has 1/9 grade education. Family History: There is no family history of cerebral aneurysm, seizure, or stroke. Review of Systems: As above. The patient has not had any recent fever, rash, weight change, chest pain, shortness of breath, gastrointestinal problems or urinary problems. She denies having depression, anxiety or sleep disturbance. Physical Exam: General: Well-developed, well-nourished female in no acute distress. 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; visual acuity is 20/25 on the left and 20/50 on the right; there are no deficits to pinprick Cerebellar system: No nystagmus or dysmetria Deep tendon reflexes: Absent at the knees, ankles, biceps bilaterally, triceps bilaterally and brachioradialis bilaterally; plantar responses are downward bilaterally Motor: Strength 5/5 in the biceps bilaterally, abductor pollicis brevis muscles bilaterally, first dorsal interosseous muscles bilaterally, iliopsoas bilaterally, quadriceps bilaterally and foot dorsiflexors bilaterally; no drift Sensory: There are no deficits to soft touch or pinprick; decreased vibration is noted in both feet Gait: Slow; she ambulates with a left limp HEENT: Normocephalic; atraumatic; tympanic membranes are clear Neck: No bruits Heart: Regular rhythm and rate Extremities: No cyanosis or edema; dorsalis pedis pulses are +2 bilaterally Suppl (more content not included)... Normal [facility] Absolute neutrophil countOrd ered By: Sanjana Thomas on 05-13-2024 Neutrophils (Bld) [#/Vol] 1.9 10*3/uL Low 2.0-7.7 [facility] Albumin to globulin ratioOrd ered By: Sanjana Thomas on 05-13-2024 Albumin/Globulin [Mass ratio] 0.9 {ratio} 0.9-2.4 [facility] Basophil percentageOrdered B y: Sanjana Thomas on 05-13-2024 Basophils/100 WBC (Bld) 1.0 % 0-1 [facility] Bilirubin, totalOrdered By: Sanjana Thomas on 05-13-2024 Bilirubin [Mass/Vol] 0.20 mg/dL 0.20-1.00 [facility] Comment on above: For patients on eltr ombopag therapy, use of Dimension [place] TBIL is not recommended. Blood urea nitrogen (BUN)/cr eatinine ratioOrdered By: Sanjana Thomas on 05-13-2024 Urea nitrogen/Creatinine [Mass ratio] 20.7 mg/mg High 10-20 [facility] CBC W/Diff, Automatedon Absolute Lymph 1.50 X10 3/uL Normal 0.83-4.51 [facility] Comment on above: Performed By: #### L 100.0100, L500.4050 #### [facility] [address] [place], [address] Absolute Neut 1.9 X10 3/uL Low 2.0-7.7 [facility] Comment on above: Performed By: #### L 100.0100, L500.4050 #### [facility] [address] [place], [address] Basophils/100 WBC (Bld) 1.0 % Normal 0-1 [facility] Comment on above: Performed By: #### L 100.0100, L500.4050 #### [facility] [address] [place], [address] Eosinophils/100 WBC (Bld) 1.5 % Normal 0-5 [facility] Comment on above: Performed By: #### L 100.0100, L500.4050 #### [facility] [address] [place], [address] Erythrocyte distribution width (RBC) [Ratio] 16.4 % High 11.6-14.6 [facility] Comment on above: Performed By: #### L 100.0100, L500.4050 #### [facility] [address] [place], [address] Hematocrit (Bld) [Volume fraction] 42.1 % Normal 37-47 [facility] Comment on above: Performed By: #### L 100.0100, L500.4050 #### [facility] [address] [place], [address] Hemoglobin (Bld) [Mass/Vol] 13.0 g/dL Normal 12.0-15.0 [facility] Comment on above: Performed By: #### L 100.0100, L500.4050 #### [facility] [address] [place], [address] IG% 0.300 Normal 0.0-0.9 [facility] Comment on above: Result Comment: IG% - Immature Granulocytes (promyelocytes, myelocytes and metamyelocytes) > 1% indicates that a LEFT SHIFT is Present. Performed By: #### L 100.0100, L500.4050 #### [facility] [address] [place], [address] Lymphocytes/100 WBC (Bld) 38.2 % Normal 19-41 [facility] Comment on above: Performed By: #### L 100.0100, L500.4050 #### [facility] [address] [place], [address] MCH (RBC) [Entitic mass] 30.4 pg Normal 27.0-32.0 [facility] Comment on above: Performed By: #### L 100.0100, L500.4050 #### [facility] [address] [place], [address] MCHC (RBC) [Mass/Vol] 30.9 g/dL Low 32-36 [facility] Comment on above: Performed By: #### L 100.0100, L500.4050 #### [facility] [address] [place], [address] MCV (RBC) [Entitic vol] 98.4 fL Normal 81-99 [facility] Comment on above: Performed By: #### L 100.0100, L500.4050 #### [facility] [address] [place], [address] Monocytes/100 WBC (Bld) 9.7 % Normal 0-10 [facility] Comment on above: Performed By: #### L 100.0100, L500.4050 #### [facility] [address] [place] [place], [address] Neutrophils/100 WBC (Bld) 49.3 % Normal 47-70 [facility] Comment on above: Performed By: #### L 100.0100, L500.4050 #### [facility] [address] [place], [address] Nucleated RBC (Bld) [#/Vol] 0 10*3/uL Normal 0-5 [facility] Comment on above: Performed By: #### L 100.0100, L500.4050 #### [facility] [address] [place], [address] Platelet mean volume (Bld) [Entitic vol] 10.5 fL Normal 6.2-12.0 [facility] Comment on above: Performed By: #### L 100.0100, L500.4050 #### [facility] [address] [place], [address] Platelets (Bld) [#/Vol] 270 10*3/uL Normal 150-450 [facility] Comment on above: Performed By: #### L 100.0100, L500.4050 #### [facility] [address] [place], [address] RBC (Bld) [#/Vol] 4.28 10*6/uL Normal 4.2-5.4 [facility] Comment on above: Performed By: #### L 100.0100, L500.4050 #### [facility] [address] [place], [address] RDW SD 59.3 fl High 35.1-43.9 [facility] Comment on above: Performed By: #### L 100.0100, L500.4050 #### [facility] [address] [place], [address] WBC (Bld) [#/Vol] 3.9 10*3/uL Low 4.4-11.0 [facility] Comment on above: Performed By: #### L 100.0100, L500.4050 #### [facility] [address] [place], [address] Carbon dioxide measurementOr dered By: Sanjana Thomas on 05-13-2024 CO2 [Moles/Vol] 32.0 mmol/L 21.0-32.0 [facility] Chloride measurementOrdered By: Sanjana Thomas on 05-13-2024 Chloride [Moles/Vol] 105 mmol/L 98-107 [facility] Comprehensive Metabolic Prof ilon 05-13-2024 Albumin [Mass/Vol] 3.2 g/dL Normal 3.2-5.0 [facility] Comment on above: Performed By: #### L 100.0100, L500.4050 #### [facility] [address] [place], [address] Albumin/Globulin [Mass ratio] 0.9 {ratio} Normal 0.9-2.4 [facility] Comment on above: Performed By: #### L 100.0100, L500.4050 #### [facility] [address] [place], [address] ALK P 83 U/L Normal 45-117 [facility] Comment on above: Performed By: #### L 100.0100, L500.4050 #### [facility] [address] [place], [address] ALT [Catalytic activity/Vol] 17 U/L Normal 13-56 [facility] Comment on above: Performed By: #### L 100.0100, L500.4050 #### [facility] [address] [place], [address] AST [Catalytic activity/Vol] 15 U/L Normal 15-37 [facility] Comment on above: Performed By: #### L 100.0100, L500.4050 #### [facility] [address] [place], [address] Bilirubin [Mass/Vol] 0.20 mg/dL Normal 0.20-1.00 [facility] Comment on above: Result Comment: For patients on eltrombopag therapy, use of Dimension [place] TBIL is not recommended. Performed By: #### L 100.0100, L500.4050 #### [facility] [address] [place], [address] BUN/CRE 20.7 RATIO High 10-20 [facility] Comment on above: Performed By: #### L 100.0100, L500.4050 #### [facility] [address] [place], [address] CA,Total 8.7 mg/dL Normal 8.5-10.1 [facility] Comment on above: Performed By: #### L 100.0100, L500.4050 #### [facility] [address] [place], [address] Chloride [Moles/Vol] 105 mmol/L Normal 98-107 [facility] Comment on above: Performed By: #### L 100.0100, L500.4050 #### [facility] [address] [place], [address] CO2 [Moles/Vol] 32.0 mmol/L Normal 21.0-32.0 [facility] Comment on above: Performed By: #### L 100.0100, L500.4050 #### [facility] [address] [place], [address] Creatinine [Mass/Vol] 0.63 mg/dL Normal 0.55-1.02 [facility] Comment on above: Result Comment: The validity of the calculated GFR GFRAA in patients over 70 years has not been determined. Clinical correlation is essential. Performed By: #### L 100.0100, L500.4050 #### [facility] [address] [place], [address] EST GFR - AA 118 mL/min Normal >60 [facility] Comment on above: Result Comment: Afri can [place] GFR Calc Performed By: #### L 100.0100, L500.4050 #### [facility] [address] [place], [address] GAP 3 Low 5-15 [facility] Comment on above: Performed By: #### L 100.0100, L500.4050 #### [facility] [address] [place], [address] GFR/1.73 sq M.predicted among non-blacks MDRD (S/P/Bld) [Vol rate/Area] 97 mL/min/{1.73_m2} Normal >60 [facility] Comment on above: Result Comment: Non- GFR Calc Performed By: #### L 100.0100, L500.4050 #### [facility] [address] [place], [address] Globulin (S) [Mass/Vol] 3.5 g/dL Normal 2.2-4.2 [facility] Comment on above: Performed By: #### L 100.0100, L500.4050 #### [facility] [address] [place], [address] Glucose [Mass/Vol] 68 mg/dL Low 74-106 [facility] Comment on above: Performed By: #### L 100.0100, L500.4050 #### [facility] [address] [place], [address] Potassium [Moles/Vol] 3.8 mmol/L Normal 3.5-5.1 [facility] Comment on above: Performed By: #### L 100.0100, L500.4050 #### [facility] [address] [place], [address] Sodium [Moles/Vol] 140 mmol/L Normal 136-145 [facility] Comment on above: Performed By: #### L 100.0100, L500.4050 #### [facility] [address] [place], [address] T PROT 6.7 g/dL Normal 6.4-8.2 [facility] Comment on above: Performed By: #### L 100.0100, L500.4050 #### [facility] [address] [place], [address] Urea nitrogen [Mass/Vol] 13 mg/dL Normal 7-18 [facility] Comment on above: Performed By: #### L 100.0100, L500.4050 #### [facility] [address] [place], [address] Eosinophil percentageOrdered By: Sanjana Thomas on 05-13-2024 Eosinophils/100 WBC (Bld) 1.5 % 0-5 [facility] Erythrocyte distribution wid th ratioOrdered By: Sanjana Thomas on 05-13-2024 Erythrocyte distribution width (RBC) [Ratio] 16.4 % High 11.6-14.6 [facility] Erythrocyte distribution wid th standard deviationOrdered By: Sanjana Thomas on 05-13-2024 Erythrocyte distribution width (RBC) [Entitic vol] 59.3 fL High 35.1-43.9 [facility] Estimated glomerular filtrat ion rate (GFR) AmericanOrdered By: Sanjana Thomas on 05-13-2024 Estimated GFR (MDRD) Amer 118 mL/min >60 [facility] Comment on above: GFR Calc Glomerular filtration rate ( GFR) estimationOrdered By: Sanjana Thomas on 05-13-2024 Estimated GFR (MDRD) Non-Af Amer 97 mL/min >60 [facility] Comment on above: Non- GFR Calc Glucose measurementOrdered B y: Sanjana Thomas on 05-13-2024 Glucose [Mass/Vol] 68 mg/dL Low 74-106 [facility] Hematocrit Auto (Bld) [Volum e fraction]Ordered By: Sanjana Thomas on 05-13-2024 Hematocrit (Bld) [Volume fraction] 42.1 % 37-47 [facility] Hemoglobin measurementOrdere d By: Sanjana Thomas on 05-13-2024 Hemoglobin (Bld) [Mass/Vol] 13.0 g/dL 12.0-15.0 [facility] Immature granulocytes/100 WB C Auto (Bld)Ordered By: Sanjana Thomas on 05-13-2024 Immature granulocytes/100 WBC (Bld) 0.300 % 0.0-0.9 [facility] Comment on above: IG% - Immature Granu locytes (promyelocytes, myelocytes and metamyelocytes) > 1% indicates that a LEFT SHIFT is Present. Laboratory - Chemistry and C hemistry - challengeOrdered By: Sanjana Thomas on 05-13-2024 AST [Catalytic activity/Vol] 15 U/L 15-37 [facility] Lymphocytes Auto (Unsp spec) [#/Vol]Ordered By: Sanjana Thomas on 05-13-2024 Lymphocytes (Bld) [#/Vol] 1.50 10*3/uL 0.83-4.51 [facility] Lymphocytes/100 WBC Auto (Un sp spec)Ordered By: Sanjana Thomas on 05-13-2024 Lymphocytes/100 WBC (Bld) 38.2 % 19-41 [facility] MCV (mean corpuscular volume ) determinationOrdered By: Sanjana Thomas on 05-13-2024 MCV (RBC) [Entitic vol] 98.4 fL 81-99 [facility] Mean corpuscular hemoglobin (MCH) determinationOrdered By: Sanjana Thomas on 05-13-2024 MCH (RBC) [Entitic mass] 30.4 pg 27.0-32.0 [facility] Mean corpuscular hemoglobin concentration (MCHC) determinationOrdered By: Sanjana Thomas on 05-13-2024 MCHC (RBC) [Mass/Vol] 30.9 g/dL Low 32-36 [facility] Mean platelet volume determi nationOrdered By: Sanjana Thomas on 05-13-2024 Platelet mean volume (Bld) [Entitic vol] 10.5 fL 6.2-12.0 [facility] Monocyte percentageOrdered B y: Sanjana Thomas on 05-13-2024 Monocytes/100 WBC (Bld) 9.7 % 0-10 [facility] Neutrophil percentageOrdered By: Sanjana Thomas on 05-13-2024 Neutrophils/100 WBC (Bld) 49.3 % 47-70 [facility] Nucleated red blood cell per centageOrdered By: Sanjana Thomas on 05-13-2024 Nucleated RBC/100 WBC (Bld) [Ratio] 0 % 0-5 [facility] Platelet countOrdered By: Agus Thomas on 05-13-2024 Platelets (Bld) [#/Vol] 270 10*3/uL 150-450 [facility] Potassium measurementOrdered By: Sanjana Thomas on 05-13-2024 Potassium [Moles/Vol] 3.8 mmol/L 3.5-5.1 [facility] RBC Auto (Bld) [#/Vol]Ordere d By: Sanjana Thomas on 05-13-2024 RBC (Bld) [#/Vol] 4.28 10*6/uL 4.2-5.4 [facility] Serum anion gap measurementO rdered By: Sanjana Thomas on 05-13-2024 Anion gap [Moles/Vol] 3 mmol/L Low 5-15 [facility] Serum globulin measurementOr dered By: Sanjana Thomas on 05-13-2024 Globulin (S) [Mass/Vol] 3.5 g/dL 2.2-4.2 [facility] Serum or plasma alanine solitario otransferase (ALT) measurementOrdered By: Sanjana Thomas on 05-13-2024 ALT [Catalytic activity/Vol] 17 U/L 13-56 [facility] Serum or plasma albumin cesilia urement (mass/volume)Ordered By: Sanjana Thomas on 05-13-2024 Albumin [Mass/Vol] 3.2 g/dL 3.2-5.0 [facility] Serum or plasma alkaline liv sphatase measurementOrdered By: Sanjana Thomas on 05-13-2024 ALP [Catalytic activity/Vol] 83 U/L 45-117 [facility] Serum or plasma calcium cesilia urement (mass/volume)Ordered By: Sanjana Thomas on 05-13-2024 Calcium [Mass/Vol] 8.7 mg/dL 8.5-10.1 [facility] Serum or plasma creatinine m easurement (mass/volume)Ordered By: Sanjana Thomas on 05-13-2024 Creatinine [Mass/Vol] 0.63 mg/dL 0.55-1.02 [facility] Comment on above: The validity of the calculated GFR & GFRAA in patients over 70 years has not been determined. Clinical correlation is essential. Serum or plasma urea nitroge n measurement (mass/volume)Ordered By: Sanjana Thomas on 05-13-2024 Urea nitrogen [Mass/Vol] 13 mg/dL 7-18 [facility] Sodium levelOrdered By: Alvarez Thomas on 05-13-2024 Sodium [Moles/Vol] 140 mmol/L 136-145 [facility] Total proteinOrdered By: Eitan Thomas on 05-13-2024 Protein [Mass/Vol] 6.7 g/dL 6.4-8.2 [facility] White blood cell (WBC) count Ordered By: Sanjana Thomas on 05-13-2024 WBC (Bld) [#/Vol] 3.9 10*3/uL Low 4.4-11.0 [facility] Gastroenterology Visit Repor ton 04-19-2024 Gastroenterology Visit Report [facility] [address] [place] [address] OFFICE VISIT Date of Service: 04/19/24 MR#: [id number] Acct: [id number] Name: ANNE DUARTE GENA Rep #: [id number] : 1945 Provider: Stephen Carrizales DO Age/Sex: 78/F Location[place] [facility] [place] Status: Signed Intake Vital Signs 12/10/21 13:25 11/04/23 12:49 Height 5 ft 1 in 5 ft 1 in Intake Visit Reasons: 5 MO FU Chief Complaint: f/u Allergies aspirin Allergy (Verified 09/03/23 22:08) Unknown codeine Allergy (Verified 09/03/23 22:08) Unknown Sulfa (Sulfonamide Antibiotics) Allergy (Verified 09/03/23 22:08) Unknown Medications ???Medication ???Instructions ???Recorded ???Confirmed ???Type Omeprazole [Prilosec] 40 mg PO DAILY 10/21/14 04/19/24 History cranberry concentrate-ascorbic 15,000 cap PO DAILY 10/21/14 04/19/24 History acid 6,000 mg-100 mg capsule folic acid 1 mg tablet 2 mg PO DAILY@0800 10/21/14 04/19/24 History Potassium 1 tab PO PRN PRN LOW K+ 07/27/21 04/19/24 History cholecalciferol (vitamin D3) 25 25 mcg PO DAILY 07/27/21 04/19/24 History mcg (1,000 unit) capsule conjugated estrogens 0.625 mg/gram 1.25 mg vaginal QWEEK 07/27/21 04/19/24 History vaginal cream (Premarin) methotrexate sodium 2.5 mg tablet See Rx Instructions .Route .COMPLEX 07/27/21 04/19/24 History nortriptyline 25 mg capsule 25 mg PO QHS 07/27/21 04/19/24 History tramadol 100 mg capsule 50 mg PO .QID PRN Pain 07/27/21 04/19/24 History 24h,extended release(25-75) (ConZip) zinc 50 mg tablet 50 mg PO QODAY 07/27/21 04/19/24 History calcium carbonate (Calcium 600) 1,200 mg PO DAILY 08/20/21 04/19/24 History latanoprost 0.005 % eye drops 1 drp EACH EYE QHS 08/20/21 04/19/24 History loratadine 10 mg tablet 10 mg PO DAILY 08/20/21 04/19/24 History Lactobacillus acidophilus and 1 cap PO DAILY 10/31/22 04/19/24 History rhamnosus 15 billion cell capsule (Probiotic) balsalazide 750 mg capsule 750 mg PO BID #180 caps 11/09/23 04/19/24 Rx losartan 50 mg tablet 50 mg PO QDAY 04/19/24 04/19/24 History Have you fallen in the past year?: No PFSH Medical History Arthritis Back pain Brain aneurysm Gastric reflux GERD (gastroesophageal reflux disease) History of pain when walking History of rheumatic fever Leg cramps Migraine headache Non-smoker Post-menopausal Rash Rectal bleeding Restless legs Rheumatoid arthritis Shortness of breath on exertion Wears glasses Surgical History Hx of brain surgery Hx of total hip arthroplasty Hx of bladder repair surgery Hx of breast biopsy Hx of arthroscopic knee surgery Hx of arthroscopy of shoulder Hx of appendectomy Hx of hysterectomy Family History Father Cancer bladder Mother Heart disease Social History Smoking Status: Never smoker alcohol intake: never substance use type: does not use what type of physical activity do you participate in: none HPI HPI Chief Complaint: f/u Details: ANNE DUARTE, is a 78 F who presents to the office today for follow up. PCP OV noting blood on toilet paper for two weeks. *BGI established 3..22 noting BRB and clots on toilet paper, with mucus/fecal leakage has been new; lower abdominal pain prior to BM and resolves following.BM are typically formed. CT abd/pel 3.31.22 aortic surgical clips, ?lymph node resection; urinary bladder thick-walled; left pelvic sidewall with hypodense elongated mass denser than expected for cyst 4.4x2x2.7cm; oral contrast did not reach TI/cecum; moderate stool throughout proximal colon; thickwalled appearance of rectum and anus with nodular focus 1.1cm, calcific density versus active bleed; mild perirectal adenopathy left fat; diverticulosis with collapsed segment of sigmoid colon ? Biochemical LDH, CA125 WNL. ? CEA H7.1, likely elevated r/t colonic inflammation. ? EGD and colonoscopy 08.21.21 EGD LA Grade A esophagitis; two recently bleeding AVM of stomach, argon beam. Colonoscopy hemorrhoids; sessile TA/hyperplastic polyps; diverticulosis; congestion rectum trough sigmoid, descending colon and TI, pathology with focal acute colitis and polytypic lymphoid aggregates with rare cryptitis. ? Start balsalazide OV 5 with balsalazide start she has had an improvement in symptoms; continue OV 8.. continues with balsalazide BID which is effective, can cause insomnia if taken too late in the day. ? (more content not included)... Normal [facility] CBC W/Diff, Automatedon 02-09 Absolute Lymph 1.11 X10 3/uL Normal 0.83-4.51 [facility] Comment on above: Performed By: #### L 100.0100, L500.4050 #### [facility] [address] [place], [address] Absolute Neut 2.3 X10 3/uL Normal 2.0-7.7 [facility] Comment on above: Performed By: #### L 100.0100, L500.4050 #### [facility] [address] [place], [address] Basophils/100 WBC (Bld) 1.0 % Normal 0-1 [facility] Comment on above: Performed By: #### L 100.0100, L500.4050 #### [facility] [address] [place], [address] Eosinophils/100 WBC (Bld) 1.0 % Normal 0-5 [facility] Comment on above: Performed By: #### L 100.0100, L500.4050 #### [facility] [address] [place], [address] Erythrocyte distribution width (RBC) [Ratio] 15.2 % High 11.6-14.6 [facility] Comment on above: Performed By: #### L 100.0100, L500.4050 #### [facility] [address] [place], [address] Hematocrit (Bld) [Volume fraction] 44.1 % Normal 37-47 [facility] Comment on above: Performed By: #### L 100.0100, L500.4050 #### [facility] [address] [place], [address] Hemoglobin (Bld) [Mass/Vol] 13.6 g/dL Normal 12.0-15.0 [facility] Comment on above: Performed By: #### L 100.0100, L500.4050 #### [facility] [address] [place], [address] IG% 0.500 Normal 0.0-0.9 [facility] Comment on above: Result Comment: IG% - Immature Granulocytes (promyelocytes, myelocytes and metamyelocytes) > 1% indicates that a LEFT SHIFT is Present. Performed By: #### L 100.0100, L500.4050 #### [facility] [address] [place], [address] Lymphocytes/100 WBC (Bld) 28.2 % Normal 19-41 [facility] Comment on above: Performed By: #### L 100.0100, L500.4050 #### [facility] [address] [place], [address] MCH (RBC) [Entitic mass] 29.6 pg Normal 27.0-32.0 [facility] Comment on above: Performed By: #### L 100.0100, L500.4050 #### [facility] [address] [place], [address] MCHC (RBC) [Mass/Vol] 30.8 g/dL Low 32-36 [facility] Comment on above: Performed By: #### L 100.0100, L500.4050 #### [facility] [address] [place], [address] MCV (RBC) [Entitic vol] 95.9 fL Normal 81-99 [facility] Comment on above: Performed By: #### L 100.0100, L500.4050 #### [facility] [address] [place], [address] Monocytes/100 WBC (Bld) 9.7 % Normal 0-10 [facility] Comment on above: Performed By: #### L 100.0100, L500.4050 #### [facility] [address] [place], [address] Neutrophils/100 WBC (Bld) 59.6 % Normal 47-70 [facility] Comment on above: Performed By: #### L 100.0100, L500.4050 #### [facility] [address] [place], [address] Nucleated RBC (Bld) [#/Vol] 0 10*3/uL Normal 0-5 [facility] Comment on above: Performed By: #### L 100.0100, L500.4050 #### [facility] [address] [place], [address] Platelet mean volume (Bld) [Entitic vol] 11.0 fL Normal 6.2-12.0 [facility] Comment on above: Performed By: #### L 100.0100, L500.4050 #### [facility] [address] [place], [address] Platelets (Bld) [#/Vol] 277 10*3/uL Normal 150-450 [facility] Comment on above: Performed By: #### L 100.0100, L500.4050 #### [facility] [address] [place], [address] RBC (Bld) [#/Vol] 4.60 10*6/uL Normal 4.2-5.4 [facility] Comment on above: Performed By: #### L 100.0100, L500.4050 #### [facility] [address] [place], [address] RDW SD 53.3 fl High 35.1-43.9 [facility] Comment on above: Performed By: #### L 100.0100, L500.4050 #### [facility] [address] [place], [address] WBC (Bld) [#/Vol] 3.9 10*3/uL Low 4.4-11.0 [facility] Comment on above: Performed By: #### L 100.0100, L500.4050 #### [facility] [address] [place], [address] Comprehensive Metabolic [facility] 02-20-2024 Albumin [Mass/Vol] 3.7 g/dL Normal 3.2-5.0 [facility] Comment on above: Performed By: #### L 100.0100, L500.4050 #### [facility] [address] [place], [address] Albumin/Globulin [Mass ratio] 1.0 {ratio} Normal 0.9-2.4 [facility] Comment on above: Performed By: #### L 100.0100, L500.4050 #### [facility] [address] [place], [address] ALK P 83 U/L Normal 45-117 [facility] Comment on above: Performed By: #### L 100.0100, L500.4050 #### [facility] [address] [place], [address] ALT [Catalytic activity/Vol] 15 U/L Normal 13-56 [facility] Comment on above: Performed By: #### L 100.0100, L500.4050 #### [facility] [address] [place], [address] AST [Catalytic activity/Vol] 19 U/L Normal 15-37 [facility] Comment on above: Performed By: #### L 100.0100, L500.4050 #### [facility] [address] [place], [address] Bilirubin [Mass/Vol] 0.30 mg/dL Normal 0.20-1.00 [facility] Comment on above: Result Comment: For patients on eltrombopag therapy, use of Dimension [place] TBIL is not recommended. Performed By: #### L 100.0100, L500.4050 #### [facility] [address] [place], [address] BUN/CRE 16.3 RATIO Normal 10-20 [facility] Comment on above: Performed By: #### L 100.0100, L500.4050 #### [facility] [address] [place], [address] CA,Total 9.4 mg/dL Normal 8.5-10.1 [facility] Comment on above: Performed By: #### L 100.0100, L500.4050 #### [facility] [address] [place], [address] Chloride [Moles/Vol] 103 mmol/L Normal 98-107 [facility] Comment on above: Performed By: #### L 100.0100, L500.4050 #### [facility] [address] [place], [address] CO2 [Moles/Vol] 32.0 mmol/L Normal 21.0-32.0 [facility] Comment on above: Performed By: #### L 100.0100, L500.4050 #### [facility] [address] [place], [address] Creatinine [Mass/Vol] 0.68 mg/dL Normal 0.55-1.02 [facility] Comment on above: Result Comment: The validity of the calculated GFR GFRAA in patients over 70 years has not been determined. Clinical correlation is essential. Performed By: #### L 100.0100, L500.4050 #### [facility] [address] [place], [address] EST GFR - AA 109 mL/min Normal >60 [facility] Comment on above: Result Comment: Afri can [place] GFR Calc Performed By: #### L 100.0100, L500.4050 #### [facility] [address] [place], [address] GAP 4 Low 5-15 [facility] Comment on above: Performed By: #### L 100.0100, L500.4050 #### [facility] [address] [place], [address] GFR/1.73 sq M.predicted among non-blacks MDRD (S/P/Bld) [Vol rate/Area] 90 mL/min/{1.73_m2} Normal >60 [facility] Comment on above: Result Comment: Non- GFR Calc Performed By: #### L 100.0100, L500.4050 #### [facility] [address] [place], [address] Globulin (S) [Mass/Vol] 3.7 g/dL Normal 2.2-4.2 [facility] Comment on above: Performed By: #### L 100.0100, L500.4050 #### [facility] [address] [place], [address] Glucose [Mass/Vol] 85 mg/dL Normal 74-106 [facility] Comment on above: Performed By: #### L 100.0100, L500.4050 #### [facility] [address] [place], [address] Potassium [Moles/Vol] 3.8 mmol/L Normal 3.5-5.1 [facility] Comment on above: Performed By: #### L 100.0100, L500.4050 #### [facility] [address] [place], [address] Sodium [Moles/Vol] 139 mmol/L Normal 136-145 [facility] Comment on above: Performed By: #### L 100.0100, L500.4050 #### [facility] [address] [place], [address] T PROT 7.4 g/dL Normal 6.4-8.2 [facility] Comment on above: Performed By: #### L 100.0100, L500.4050 #### [facility] [address] [place], [address] Urea nitrogen [Mass/Vol] 11 mg/dL Normal 7-18 [facility] Comment on above: Performed By: #### L 100.0100, L500.4050 #### [facility] [address] [place], [address] Absolute lymphocyte countOrd ered By: Bryan Blackmon on 09-03-2023 Lymphocytes Auto (Unsp spec) [#/Vol] 0.58 10*3/uL 0.83-4.51 [facility] Activated partial thrombopla stin time (aPTT) in platelet poor plasma by coagulation aOrdered By: Bryan Blackmon on 09-03-2023 aPTT Coag (PPP) [Time] 34.2 s 24.1-36.2 [facility] Automated lymphocyte count a s percentage of total leukocytesOrdered By: Bryan Blackmon on 09-03-2023 Lymphocytes/100 WBC Auto (Unsp spec) 15.9 % 19-41 [facility] Basophil percentageOrdered B y: Bryan Blackmon on 09-03-2023 Basophils/100 WBC (Bld) 0.5 % 0-1 [facility] Chloride [Moles/Vol] 101 mmol/L 98-107 [facility] Eosinophils/100 WBC (Bld) 0.3 % 0-5 [facility] Glucose [Mass/Vol] 109 mg/dL 74-106 [facility] Comment on above: Fasting Glucose resu lt from 100 to 125 mg/dL suggests IMPAIRED HOMEOSTASIS per A.D.A. criteria. Hemoglobin (Bld) [Mass/Vol] 13.5 g/dL 12.0-15.0 [facility] Monocytes/100 WBC (Bld) 9.1 % 0-10 [facility] Neutrophils (Bld) [#/Vol] 2.7 10*3/uL 2.0-7.7 [facility] Neutrophils/100 WBC (Bld) 73.9 % 47-70 [facility] Potassium [Moles/Vol] 3.8 mmol/L 3.5-5.1 [facility] Sodium [Moles/Vol] 135 mmol/L 136-145 [facility] WBC (Bld) [#/Vol] 3.6 10*3/uL 4.4-11.0 [facility] Blood manual differential co mment interpretation (narrative result)Ordered By: Bryan Blackmon on 09-03-2023 Manual differential comment Pietro (Bld) [Interp] SEE COMMENT [facility] Comment on above: LYMPHOPENIA NOTED Blood platelet adequacy dete ction by light microscopyOrdered By: Bryan Blackmon on 09-03-2023 Platelets LM Ql (Bld) ADEQUATE ADEQ [facility] Determination of erythrocyte mean corpuscular volume (MCV)Ordered By: Bryan Blackmon on 09-03-2023 MCV (RBC) [Entitic vol] 94.1 fL 81-99 [facility] Erythrocyte distribution wid th ratioOrdered By: Bryan Blackmon on 09-03-2023 Erythrocyte distribution width (RBC) [Ratio] 15.3 % 11.6-14.6 [facility] Erythrocyte distribution wid th standard deviationOrdered By: Bryan Blackmon on 09-03-2023 Erythrocyte distribution width (RBC) [Entitic vol] 52.5 fL 35.1-43.9 [facility] Hematocrit Auto (Bld) [Volum e fraction]Ordered By: Bryan Blackmon on 09-03-2023 Hematocrit (Bld) [Volume fraction] 43.3 % 37-47 [facility] Immature granulocytes/100 WB C Auto (Bld)Ordered By: Bryan Blackmon on 09-03-2023 Immature granulocytes/100 WBC (Bld) 0.300 % 0.0-0.9 [facility] Comment on above: IG% - Immature Granu locytes (promyelocytes, myelocytes and metamyelocytes) > 1% indicates that a LEFT SHIFT is Present. Laboratory - Chemistry and C hemistry - challengeOrdered By: Bryan Blackmon on 09-03-2023 CO2 [Moles/Vol] 29.0 mmol/L 21.0-32.0 [facility] Urea nitrogen/Creatinine [Mass ratio] 17.8 mg/mg 10-20 [facility] - CoagulationOrde red By: Bryan Blackmon on 09-03-2023 INR Coag (Bld) [Relative time] 1.2 {INR} [facility] PT Coag (PPP) [Time] 14.7 s 11.7-14.9 [facility] - Hematology and Cell countsOrdered By: Bryan Blackmon on 09-03-2023 Anisocytosis Ql (Bld) RARE [facility] MCH (RBC) [Entitic mass] 29.3 pg 27.0-32.0 [facility] MCHC (RBC) [Mass/Vol] 31.2 g/dL 32-36 [facility] Nucleated RBC/100 WBC (Bld) [Ratio] 0 % 0-5 [facility] Platelet mean volume (Bld) [Entitic vol] 10.4 fL 6.2-12.0 [facility] Platelets (Bld) [#/Vol] 240 10*3/uL 150-450 [facility] - Microbiology an d Antimicrobial susceptibilityOrdered By: Bryan Blackmon on 09-03-2023 SARS-CoV-2 (COVID-19) RNA JONATHAN+probe Ql (Unsp spec) RSV [facility] Macrocytes detectionOrdered By: Bryan Blackmon on 09-03-2023 Macrocytes Ql (Bld) RARE [facility] No Panel InformationOrdered By: Bryan Blackmon on 09-03-2023 Estimated Creatinine Clearance Calc 62.77 ml/min [facility] Estimated GFR (MDRD) Amer 152 mL/min >60 [facility] Comment on above: GFR Calc Estimated GFR (MDRD) Non-Af Amer 125 mL/min >60 [facility] Comment on above: Non- GFR Calc RBC Auto (Bld) [#/Vol]Ordere d By: Bryan Blackmon on 09-03-2023 RBC (Bld) [#/Vol] 4.60 10*6/uL 4.2-5.4 [facility] RBC morphologyOrdered By: Rachel Blackmon on 09-03-2023 RBC morphology finding Nom (Bld) N CHROM NORMAL NORM C&C [facility] Serum or plasma calcium cesilia urement (mass/volume)Ordered By: Bryan Blackmon on 09-03-2023 Calcium [Mass/Vol] 8.5 mg/dL 8.5-10.1 [facility] Serum or plasma creatinine m easurement (mass/volume)Ordered By: Bryan Blackmon on 09-03-2023 Creatinine [Mass/Vol] 0.51 mg/dL 0.55-1.02 [facility] Comment on above: The validity of the calculated GFR & GFRAA in patients over 70 years has not been determined. Clinical correlation is essential. Serum or plasma urea nitroge n measurement (mass/volume)Ordered By: Bryan Blackmon on 09-03-2023 Urea nitrogen [Mass/Vol] 9 mg/dL 7-18 [facility] Thin prep Papanicolaou smear with manual screeningOrdered By: Bryan Blackmon on 09-03-2023 Thin prep Papanicolaou smear with manual screening 5 5-15 [facility] Absolute lymphocyte countOrd ered By: Sanjana Thomas on 08-13-2023 Lymphocytes Auto (Unsp spec) [#/Vol] 1.15 10*3/uL 0.83-4.51 [facility] Automated lymphocyte count a s percentage of total leukocytesOrdered By: Sanjana Thomas on 08-13-2023 Lymphocytes/100 WBC Auto (Unsp spec) 33.0 % 19-41 [facility] Basophil percentageOrdered B y: Sanjana Thomas on 08-13-2023 Basophils/100 WBC (Bld) 1.1 % 0-1 [facility] Bilirubin [Mass/Vol] 0.30 mg/dL 0.20-1.00 [facility] Comment on above: For patients on eltr ombopag therapy, use of Dimension [place] TBIL is not recommended. Chloride [Moles/Vol] 105 mmol/L 98-107 [facility] Eosinophils/100 WBC (Bld) 1.4 % 0-5 [facility] Glucose [Mass/Vol] 88 mg/dL 74-106 [facility] Hemoglobin (Bld) [Mass/Vol] 13.2 g/dL 12.0-15.0 [facility] Monocytes/100 WBC (Bld) 9.7 % 0-10 [facility] Neutrophils (Bld) [#/Vol] 1.9 10*3/uL 2.0-7.7 [facility] Neutrophils/100 WBC (Bld) 54.5 % 47-70 [facility] Potassium [Moles/Vol] 3.9 mmol/L 3.5-5.1 [facility] Protein [Mass/Vol] 6.9 g/dL 6.4-8.2 [facility] Sodium [Moles/Vol] 141 mmol/L 136-145 [facility] WBC (Bld) [#/Vol] 3.5 10*3/uL 4.4-11.0 [facility] Determination of erythrocyte mean corpuscular volume (MCV)Ordered By: Sanjana Thomas on 08-13-2023 MCV (RBC) [Entitic vol] 96.9 fL 81-99 [facility] Erythrocyte distribution wid th ratioOrdered By: [facility] on 08-13-2023 Erythrocyte distribution width (RBC) [Ratio] 15.2 % 11.6-14.6 [facility] Erythrocyte distribution wid th standard deviationOrdered By: [facility] on 08-13-2023 Erythrocyte distribution width (RBC) [Entitic vol] 54.4 fL 35.1-43.9 [facility] Hematocrit Auto (Bld) [Volum e fraction]Ordered By: [facility] William on 08-13-2023 Hematocrit (Bld) [Volume fraction] 43.2 % 37-47 [facility] Immature granulocytes/100 WB C Auto (Bld)Ordered By: [facility] William on 08-13-2023 Immature granulocytes/100 WBC (Bld) 0.300 % 0.0-0.9 [facility] Comment on above: IG% - Immature Granu locytes (promyelocytes, myelocytes and metamyelocytes) > 1% indicates that a LEFT SHIFT is Present. Laboratory - Chemistry and C hemistry - challengeOrdered By: [facility] on 08-13-2023 Albumin/Globulin [Mass ratio] 1.0 {ratio} 0.9-2.4 [facility] ALP [Catalytic activity/Vol] 81 U/L 45-117 [facility] ALT [Catalytic activity/Vol] 14 U/L 13-56 [facility] CO2 [Moles/Vol] 33.0 mmol/L 21.0-32.0 [facility] Globulin (S) [Mass/Vol] 3.5 g/dL 2.2-4.2 [facility] Urea nitrogen/Creatinine [Mass ratio] 17.2 mg/mg 10-20 [facility] - Hematology and Cell countsOrdered By: [facility] on 08-13-2023 MCH (RBC) [Entitic mass] 29.6 pg 27.0-32.0 [facility] MCHC (RBC) [Mass/Vol] 30.6 g/dL 32-36 [facility] Nucleated RBC/100 WBC (Bld) [Ratio] 0 % 0-5 [facility] Platelet mean volume (Bld) [Entitic vol] 10.6 fL 6.2-12.0 [facility] Platelets (Bld) [#/Vol] 293 10*3/uL 150-450 [facility] No Panel InformationOrdered By: Sanjana Thomas on 08-13-2023 Estimated GFR (MDRD) Amer 96 mL/min >60 [facility] Comment on above: GFR Calc Estimated GFR (MDRD) Non-Af Amer 79 mL/min >60 [facility] Comment on above: Non- GFR Calc RBC Auto (Bld) [#/Vol]Ordere d By: Sanjana Thomas on 08-13-2023 RBC (Bld) [#/Vol] 4.46 10*6/uL 4.2-5.4 [facility] Serum or plasma calcium cseilia urement (mass/volume)Ordered By: Sanjana Thomas on 08-13-2023 Calcium [Mass/Vol] 8.8 mg/dL 8.5-10.1 [facility] Serum or plasma creatinine m easurement (mass/volume)Ordered By: Sanjana Thomas on 08-13-2023 Creatinine [Mass/Vol] 0.75 mg/dL 0.55-1.02 [facility] Comment on above: The validity of the calculated GFR & GFRAA in patients over 70 years has not been determined. Clinical correlation is essential. Serum or plasma urea nitroge n measurement (mass/volume)Ordered By: Sanjana Thomas on 08-13-2023 Urea nitrogen [Mass/Vol] 13 mg/dL 7-18 [facility] Thin prep Papanicolaou smear with manual screeningOrdered By: Sanjana Thomas on 08-13-2023 Thin prep Papanicolaou smear with manual screening 3.4 g/dL 3.2-5.0 [facility] Thin prep Papanicolaou smear with manual screening 17 U/L 15-37 [facility] Thin prep Papanicolaou smear with manual screening 3 5-15 [facility] Absolute lymphocyte countOrd ered By: Sanjana Thomas on 05-19-2023 Lymphocytes Auto (Unsp spec) [#/Vol] 1.17 10*3/uL 0.83-4.51 [facility] Basophil percentageOrdered B y: Sanjana Thomas on 05-19-2023 Basophils/100 WBC (Bld) 0.8 % 0-1 [facility] Bilirubin [Mass/Vol] 0.30 mg/dL 0.20-1.00 [facility] Comment on above: For patients on eltr ombopag therapy, use of Dimension [place] TBIL is not recommended. Chloride [Moles/Vol] 105 mmol/L 98-107 [facility] Eosinophils/100 WBC (Bld) 0.8 % 0-5 [facility] Glucose [Mass/Vol] 90 mg/dL 74-106 [facility] Neutrophils (Bld) [#/Vol] 2.2 10*3/uL 2.0-7.7 [facility] Neutrophils/100 WBC (Bld) 58.8 % 47-70 [facility] Potassium [Moles/Vol] 3.6 mmol/L 3.5-5.1 [facility] Protein [Mass/Vol] 7.1 g/dL 6.4-8.2 [facility] Sodium [Moles/Vol] 141 mmol/L 136-145 [facility] WBC (Bld) [#/Vol] 3.8 10*3/uL 4.4-11.0 [facility] Blood erythrocytes count (nu mber/volume)Ordered By: Sanjana Thomas on 05-19-2023 RBC (Bld) [#/Vol] 4.63 10*6/uL 4.2-5.4 [facility] Blood hemoglobin measurement (mass/volume)Ordered By: Sanjana Thomas on 05-19-2023 Hemoglobin (Bld) [Mass/Vol] 13.5 g/dL 12.0-15.0 [facility] Blood lymphocytes/100 leukoc ytesOrdered By: Sanjana Thomas on 05-19-2023 Lymphocytes/100 WBC (Bld) 30.9 % 19-41 [facility] Blood monocytes/100 leukocyt esOrdered By: Sanjana Thomas on 05-19-2023 Monocytes/100 WBC (Bld) 8.4 % 0-10 [facility] Blood platelet mean volumeOr dered By: Sanjana Thomas on 05-19-2023 Platelet mean volume (Bld) [Entitic vol] 10.4 fL 6.2-12.0 [facility] Determination of erythrocyte mean corpuscular volume (MCV)Ordered By: Sanjana Thomas on 05-19-2023 MCV (RBC) [Entitic vol] 98.3 fL 81-99 [facility] Hematocrit Auto (Bld) [Volum e fraction]Ordered By: Sanjana Thomas on 05-19-2023 Hematocrit (Bld) [Volume fraction] 45.5 % 37-47 [facility] - Chemistry and C hemistry - challengeOrdered By: Sanjana Thomas on 05-19-2023 ALP [Catalytic activity/Vol] 87 U/L 45-117 [facility] ALT [Catalytic activity/Vol] 19 U/L 13-56 [facility] CO2 [Moles/Vol] 31.0 mmol/L 21.0-32.0 [facility] Globulin (S) [Mass/Vol] 3.7 g/dL 2.2-4.2 [facility] Urea nitrogen/Creatinine [Mass ratio] 17.9 mg/mg 10-20 [facility] - Hematology and Cell countsOrdered By: [facility] on 05-19-2023 Erythrocyte distribution width (RBC) [Entitic vol] 55.1 fL 35.1-43.9 [facility] Erythrocyte distribution width (RBC) [Ratio] 15.3 % 11.6-14.6 [facility] Immature granulocytes/100 WBC (Bld) 0.300 % 0.0-0.9 [facility] Comment on above: IG% - Immature Granu locytes (promyelocytes, myelocytes and metamyelocytes) > 1% indicates that a LEFT SHIFT is Present. MCH (RBC) [Entitic mass] 29.2 pg 27.0-32.0 [facility] Nucleated RBC/100 WBC (Bld) [Ratio] 0 % 0-5 [facility] MCHC Auto (RBC) [Mass/Vol]Or dered By: Sanjana Thomas on 05-19-2023 MCHC (RBC) [Mass/Vol] 29.7 g/dL 32-36 [facility] No Panel InformationOrdered By: Sanjana Thomas on 05-19-2023 Estimated GFR (MDRD) Amer 100 mL/min >60 [facility] Comment on above: GFR Calc Estimated GFR (MDRD) Non-Af Amer 83 mL/min >60 [facility] Comment on above: Non- GFR Calc Platelets bldOrdered By: Eitan Thomas on 05-19-2023 Platelets (Bld) [#/Vol] 300 10*3/uL 150-450 [facility] Serum or plasma albumin cesilia urement (mass/volume)Ordered By: Sanjana Thomas on 05-19-2023 Albumin [Mass/Vol] 3.4 g/dL 3.2-5.0 [facility] Serum or plasma albumin/glob ulin mass ratioOrdered By: Sanjana Thomas on 05-19-2023 Albumin/Globulin [Mass ratio] 0.9 {ratio} 0.9-2.4 [facility] Serum or plasma calcium cesilia urement (mass/volume)Ordered By: Sanjana Thomas on 05-19-2023 Calcium [Mass/Vol] 8.5 mg/dL 8.5-10.1 [facility] Serum or plasma creatinine m easurement (mass/volume)Ordered By: Sanjana Thomas on 05-19-2023 Creatinine [Mass/Vol] 0.73 mg/dL 0.55-1.02 [facility] Comment on above: The validity of the calculated GFR & GFRAA in patients over 70 years has not been determined. Clinical correlation is essential. Serum or plasma urea nitroge n measurement (mass/volume)Ordered By: Sanjana Thomas on 05-19-2023 Urea nitrogen [Mass/Vol] 13 mg/dL 7-18 [facility] Thin prep Papanicolaou smear with manual screeningOrdered By: Sanjana Thomas on 05-19-2023 Thin prep Papanicolaou smear with manual screening 23 U/L 15-37 [facility] Thin prep Papanicolaou smear with manual screening 5 5-15 [facility] Absolute lymphocyte countOrd ered By: Sanjana Thomas on 02-18-2023 Lymphocytes Auto (Unsp spec) [#/Vol] 1.24 10*3/uL 0.83-4.51 [facility] Basophil percentageOrdered B y: Sanjana Thomas on 02-18-2023 Basophils/100 WBC (Bld) 1.1 % 0-1 [facility] Bilirubin [Mass/Vol] 0.20 mg/dL 0.20-1.00 [facility] Comment on above: For patients on eltr ombopag therapy, use of Dimension [place] TBIL is not recommended. Chloride [Moles/Vol] 106 mmol/L 98-107 [facility] Eosinophils/100 WBC (Bld) 1.1 % 0-5 [facility] Glucose [Mass/Vol] 82 mg/dL 74-106 [facility] Neutrophils (Bld) [#/Vol] 2.1 10*3/uL 2.0-7.7 [facility] Neutrophils/100 WBC (Bld) 56.0 % 47-70 [facility] Potassium [Moles/Vol] 3.9 mmol/L 3.5-5.1 [facility] Protein [Mass/Vol] 6.9 g/dL 6.4-8.2 [facility] Sodium [Moles/Vol] 141 mmol/L 136-145 [facility] WBC (Bld) [#/Vol] 3.8 10*3/uL 4.4-11.0 [facility] Blood erythrocytes count (nu mber/volume)Ordered By: Sanjana Thomas on 02-18-2023 RBC (Bld) [#/Vol] 4.49 10*6/uL 4.2-5.4 [facility] Blood hemoglobin measurement (mass/volume)Ordered By: Sanjana Thomas on 02-18-2023 Hemoglobin (Bld) [Mass/Vol] 13.5 g/dL 12.0-15.0 [facility] Blood lymphocytes/100 leukoc ytesOrdered By: Sanjana Thomas on 02-18-2023 Lymphocytes/100 WBC (Bld) 32.6 % 19-41 [facility] Blood monocytes/100 leukocyt esOrdered By: Sanjana Thomas on 02-18-2023 Monocytes/100 WBC (Bld) 8.9 % 0-10 [facility] Blood platelet mean volumeOr dered By: Sanjana Thomas on 02-18-2023 Platelet mean volume (Bld) [Entitic vol] 10.7 fL 6.2-12.0 [facility] Determination of erythrocyte mean corpuscular volume (MCV)Ordered By: Sanjana Thomas on 02-18-2023 MCV (RBC) [Entitic vol] 99.6 fL 81-99 [facility] Hematocrit Auto (Bld) [Volum e fraction]Ordered By: Sanjanayola Thomas on 02-18-2023 Hematocrit (Bld) [Volume fraction] 44.7 % 37-47 [facility] Laboratory - Chemistry and C hemistry - challengeOrdered By: Sanjanayola Thomas on 02-18-2023 ALP [Catalytic activity/Vol] 84 U/L 45-117 [facility] ALT [Catalytic activity/Vol] 19 U/L 13-56 [facility] CO2 [Moles/Vol] 33.0 mmol/L 21.0-32.0 [facility] Globulin (S) [Mass/Vol] 3.6 g/dL 2.2-4.2 [facility] Urea nitrogen/Creatinine [Mass ratio] 14.5 mg/mg 10-20 [facility] Laboratory - Hematology and Cell countsOrdered By: [facility] on 02-18-2023 Erythrocyte distribution width (RBC) [Entitic vol] 56.4 fL 35.1-43.9 [facility] Erythrocyte distribution width (RBC) [Ratio] 15.4 % 11.6-14.6 [facility] Immature granulocytes/100 WBC (Bld) 0.300 % 0.0-0.9 [facility] Comment on above: IG% - Immature Granu locytes (promyelocytes, myelocytes and metamyelocytes) > 1% indicates that a LEFT SHIFT is Present. MCH (RBC) [Entitic mass] 30.1 pg 27.0-32.0 [facility] Nucleated RBC/100 WBC (Bld) [Ratio] 0 % 0-5 [facility] MCHC Auto (RBC) [Mass/Vol]Or dered By: Sanjanayola Thomas on 02-18-2023 MCHC (RBC) [Mass/Vol] 30.2 g/dL 32-36 [facility] No Panel InformationOrdered By: Sanjanayola Thomas on 02-18-2023 Estimated GFR (MDRD) Amer 106 mL/min >60 [facility] Comment on above: GFR Calc Estimated GFR (MDRD) Non-Af Amer 87 mL/min >60 [facility] Comment on above: Non- GFR Calc Platelets bldOrdered By: Eitan Thomas on 02-18-2023 Platelets (Bld) [#/Vol] 284 10*3/uL 150-450 [facility] Serum or plasma albumin cesilia urement (mass/volume)Ordered By: Sanjana Thomas on 02-18-2023 Albumin [Mass/Vol] 3.3 g/dL 3.2-5.0 [facility] Serum or plasma albumin/glob ulin mass ratioOrdered By: Sanjana Thomas on 02-18-2023 Albumin/Globulin [Mass ratio] 0.9 {ratio} 0.9-2.4 [facility] Serum or plasma calcium cesilia urement (mass/volume)Ordered By: Sanjana Thomas on 02-18-2023 Calcium [Mass/Vol] 8.6 mg/dL 8.5-10.1 [facility] Serum or plasma creatinine m easurement (mass/volume)Ordered By: Sanjana Thomas on 02-18-2023 Creatinine [Mass/Vol] 0.69 mg/dL 0.55-1.02 [facility] Comment on above: The validity of the calculated GFR & GFRAA in patients over 70 years has not been determined. Clinical correlation is essential. Serum or plasma urea nitroge n measurement (mass/volume)Ordered By: Sanjana Thomas on 02-18-2023 Urea nitrogen [Mass/Vol] 10 mg/dL 7-18 [facility] Thin prep Papanicolaou smear with manual screeningOrdered By: Sanjana Thomas on 02-18-2023 Thin prep Papanicolaou smear with manual screening 17 U/L 15-37 [facility] Thin prep Papanicolaou smear with manual screening 2 5-15 [facility] Culture, urineOrdered By: Sammie Pressley on 01-02-2023 Bacteria identified Cx Nom (U) Mixed Gram Pos & Gram Neg Org [facility] No Panel InformationOrdered By: Stephen Friend on 12-19-2022 Stool Calprotectin 153 ug/g 0-120 [facility] Comment on above: Concentration Interp retation Follow-Up< 5 - 50 ug/g Normal None>50 -120 ug/g Borderline Re-evaluate in 4-6 weeks >120 ug/g Abnormal Repeat as clinically indicatedPerformed at: [facility] [id number] [place], [place] [id number] Director: Snow Sun MD, Phone: [phone] Stool lactoferrin detection by immunoassayOrdered By: Stephen Carrizales on 12-19-2022 Lactoferrin IA Ql (Stl) [facility] Absolute lymphocyte countOrd ered By: Stephen Carrizales on 12-03-2022 Lymphocytes Auto (Unsp spec) [#/Vol] 1.14 10*3/uL 0.83-4.51 [facility] Basophil percentageOrdered B y: Stephen Carrizales on 12-03-2022 Basophils/100 WBC (Bld) 0.9 % 0-1 [facility] Bilirubin [Mass/Vol] 0.30 mg/dL 0.20-1.00 [facility] Comment on above: For patients on eltr ombopag therapy, use of Dimension [place] TBIL is not recommended. Chloride [Moles/Vol] 106 mmol/L 98-107 [facility] Eosinophils/100 WBC (Bld) 1.2 % 0-5 [facility] Glucose [Mass/Vol] 65 mg/dL 74-106 [facility] Neutrophils (Bld) [#/Vol] 1.9 10*3/uL 2.0-7.7 [facility] Neutrophils/100 WBC (Bld) 55.0 % 47-70 [facility] Potassium [Moles/Vol] 3.5 mmol/L 3.5-5.1 [facility] Protein [Mass/Vol] 6.9 g/dL 6.4-8.2 [facility] Sodium [Moles/Vol] 141 mmol/L 136-145 [facility] WBC (Bld) [#/Vol] 3.5 10*3/uL 4.4-11.0 [facility] Blood erythrocytes count (nu mber/volume)Ordered By: Stephen Carrizales on 12-03-2022 RBC (Bld) [#/Vol] 4.50 10*6/uL 4.2-5.4 [facility] Blood hemoglobin measurement (mass/volume)Ordered By: Stephen Carrizales on 12-03-2022 Hemoglobin (Bld) [Mass/Vol] 13.3 g/dL 12.0-15.0 [facility] Blood lymphocytes/100 leukoc ytesOrdered By: Stephen Carrizales on 12-03-2022 Lymphocytes/100 WBC (Bld) 33.0 % 19-41 [facility] Blood monocytes/100 leukocyt esOrdered By: Stephen Carrizales on 12-03-2022 Monocytes/100 WBC (Bld) 9.9 % 0-10 [facility] Blood platelet mean volumeOr dered By: Stephen Carrizales on 12-03-2022 Platelet mean volume (Bld) [Entitic vol] 10.8 fL 6.2-12.0 [facility] Determination of erythrocyte mean corpuscular volume (MCV)Ordered By: Stephen Carrizales on 12-03-2022 MCV (RBC) [Entitic vol] 97.3 fL 81-99 [facility] Erythrocyte sedimentation ra teOrdered By: Stephen Carrizales on 12-03-2022 ESR (Bld) [Velocity] 9 mm/h 0-30 [facility] Hematocrit Auto (Bld) [Volum e fraction]Ordered By: Stephen Carrizales on 12-03-2022 Hematocrit (Bld) [Volume fraction] 43.8 % 37-47 [facility] Laboratory - Chemistry and C hemistry - challengeOrdered By: Stephen Carrizales on 12-03-2022 ALP [Catalytic activity/Vol] 85 U/L 45-117 [facility] ALT [Catalytic activity/Vol] 17 U/L 13-56 [facility] CO2 [Moles/Vol] 30.0 mmol/L 21.0-32.0 [facility] Globulin (S) [Mass/Vol] 3.6 g/dL 2.2-4.2 [facility] Urea nitrogen/Creatinine [Mass ratio] 16.7 mg/mg 10-20 [facility] Laboratory - Hematology and Cell countsOrdered By: Stephen Carrizales on 07-25-2023 Erythrocyte distribution width (RBC) [Entitic vol] 55.9 fL 35.1-43.9 [facility] Erythrocyte distribution width (RBC) [Ratio] 15.6 % 11.6-14.6 [facility] Immature granulocytes/100 WBC (Bld) 0.000 % 0.0-0.9 [facility] Comment on above: IG% - Immature Granu locytes (promyelocytes, myelocytes and metamyelocytes) > 1% indicates that a LEFT SHIFT is Present. MCH (RBC) [Entitic mass] 29.6 pg 27.0-32.0 [facility] Nucleated RBC/100 WBC (Bld) [Ratio] 0 % 0-5 [facility] MCHC Auto (RBC) [Mass/Vol]Or dered By: Stephen Carrizales on 12-03-2022 MCHC (RBC) [Mass/Vol] 30.4 g/dL 32-36 [facility] No Panel InformationOrdered By: Stephen Carrizales on 12-03-2022 Estimated GFR (MDRD) Amer 93 mL/min >60 [facility] Comment on above: GFR Calc Estimated GFR (MDRD) Non-Af Amer 77 mL/min >60 [facility] Comment on above: Non- GFR Calc Platelets bldOrdered By: Max Carrizales on 12-03-2022 Platelets (Bld) [#/Vol] 274 10*3/uL 150-450 [facility] Serum or plasma C reactive p rotein measurement (mass/volume)Ordered By: Stephen Carrizales on 12-03-2022 CRP [Mass/Vol] 9.45 mg/L 0.0-3.0 [facility] Comment on above: C-Reactive Protein ( CRP) provides useful information for thediagnosis, therapy and monitoring of inflammatory processesand associated diseases. For the evaluation of Relative Riskfor Cardiovascular Disease, a High Sensitivity CRP (HSCRP)should be ordered. Serum or plasma albumin cesilia urement (mass/volume)Ordered By: Stephen Carrizales on 12-03-2022 Albumin [Mass/Vol] 3.3 g/dL 3.2-5.0 [facility] Serum or plasma albumin/glob ulin mass ratioOrdered By: Stephen Carrizales on 12-03-2022 Albumin/Globulin [Mass ratio] 0.9 {ratio} 0.9-2.4 [facility] Serum or plasma calcium cesilia urement (mass/volume)Ordered By: Stephen Carrizales on 12-03-2022 Calcium [Mass/Vol] 8.3 mg/dL 8.5-10.1 [facility] Serum or plasma carcinoembry onic antigen measurement (mass/volume)Ordered By: Stephen Carrizales on 12-03-2022 Carcinoembryonic Ag [Mass/Vol] 5.5 ng/mL 0.0-4.7 [facility] Comment on above: Nonsmokers <3.9 Smok ers <5.6[employer] Electrochemiluminescence Immunoassay(ECLIA)Values obtained with different assay methods or kitscannot be used interchangeably. Results cannot beinterpreted as absolute evidence of the presence orabsence of malignant disease.Performed at: [facility] [place] [id number] Director: Cirilo Turner PhD, Phone: [phone] Serum or plasma creatinine m easurement (mass/volume)Ordered By: Stephen Carrizales on 12-03-2022 Creatinine [Mass/Vol] 0.78 mg/dL 0.55-1.02 [facility] Comment on above: The validity of the calculated GFR & GFRAA in patients over 70 years has not been determined. Clinical correlation is essential. Serum or plasma urea nitroge n measurement (mass/volume)Ordered By: Stephen Carrizales on 12-03-2022 Urea nitrogen [Mass/Vol] 13 mg/dL 7-18 [facility] Thin prep Papanicolaou smear with manual screeningOrdered By: Stephen Carrizales on 12-03-2022 Thin prep Papanicolaou smear with manual screening 18 U/L 15-37 [facility] Thin prep Papanicolaou smear with manual screening 5 5-15 [facility] Absolute lymphocyte countOrd ered By: Dr. Thomas on 09-02-2022 Lymphocytes Auto (Unsp spec) [#/Vol] 1.17 10*3/uL 0.83-4.51 [facility] Basophil percentageOrdered B y: Dr. Thomas on 09-02-2022 Basophils/100 WBC (Bld) 1.1 % 0-1 [facility] Bilirubin [Mass/Vol] 0.30 mg/dL 0.20-1.00 [facility] Comment on above: For patients on eltr ombopag therapy, use of Dim[place] TBIL is not recommended. Chloride [Moles/Vol] 103 mmol/L 98-107 [facility] Eosinophils/100 WBC (Bld) 1.1 % 0-5 [facility] Glucose [Mass/Vol] 99 mg/dL 74-106 [facility] Neutrophils (Bld) [#/Vol] 2.1 10*3/uL 2.0-7.7 [facility] Neutrophils/100 WBC (Bld) 55.8 % 47-70 [facility] Potassium [Moles/Vol] 3.6 mmol/L 3.5-5.1 [facility] Protein [Mass/Vol] 7.4 g/dL 6.4-8.2 [facility] Sodium [Moles/Vol] 139 mmol/L 136-145 [facility] WBC (Bld) [#/Vol] 3.7 10*3/uL 4.4-11.0 [facility] Blood erythrocytes count (nu mber/volume)Ordered By: Dr. Thomas on 09-02-2022 RBC (Bld) [#/Vol] 4.82 10*6/uL 4.2-5.4 [facility] Blood hemoglobin measurement (mass/volume)Ordered By: Dr. Thomas on 09-02-2022 Hemoglobin (Bld) [Mass/Vol] 13.8 g/dL 12.0-15.0 [facility] Blood lymphocytes/100 leukoc ytesOrdered By: Dr. Thomas on 09-02-2022 Lymphocytes/100 WBC (Bld) 31.7 % 19-41 [facility] Blood monocytes/100 leukocyt esOrdered By: Dr. Thomas on 09-02-2022 Monocytes/100 WBC (Bld) 10.0 % 0-10 [facility] Blood platelet mean volumeOr dered By: Dr. Thomas on 09-02-2022 Platelet mean volume (Bld) [Entitic vol] 10.8 fL 6.2-12.0 [facility] Determination of erythrocyte mean corpuscular volume (MCV)Ordered By: Dr. Thomas on 09-02-2022 MCV (RBC) [Entitic vol] 97.1 fL 81-99 [facility] Hematocrit Auto (Bld) [Volum e fraction]Ordered By: Dr. Thomas on 09-02-2022 Hematocrit (Bld) [Volume fraction] 46.8 % 37-47 [facility] Laboratory - Chemistry and C hemistry - challengeOrdered By: Dr. Thomas on 09-02-2022 ALP [Catalytic activity/Vol] 92 U/L 45-117 [facility] ALT [Catalytic activity/Vol] 25 U/L 13-56 [facility] CO2 [Moles/Vol] 32.0 mmol/L 21.0-32.0 [facility] Globulin (S) [Mass/Vol] 3.9 g/dL 2.2-4.2 [facility] Urea nitrogen/Creatinine [Mass ratio] 14.5 mg/mg 10-20 [facility] Laboratory - Hematology and Cell countsOrdered By: Dr. Thomas on 09-02-2022 Erythrocyte distribution width (RBC) [Entitic vol] 54.1 fL 35.1-43.9 [facility] Erythrocyte distribution width (RBC) [Ratio] 15.2 % 11.6-14.6 [facility] Immature granulocytes/100 WBC (Bld) 0.300 % 0.0-0.9 [facility] Comment on above: IG% - Immature Granu locytes (promyelocytes, myelocytes and metamyelocytes) > 1% indicates that a LEFT SHIFT is Present. MCH (RBC) [Entitic mass] 28.6 pg 27.0-32.0 [facility] Nucleated RBC/100 WBC (Bld) [Ratio] 0 % 0-5 [facility] MCHC Auto (RBC) [Mass/Vol]Or dered By: Dr. Thomas on 09-02-2022 MCHC (RBC) [Mass/Vol] 29.5 g/dL 32-36 [facility] No Panel InformationOrdered By: Dr. Thomas on 09-02-2022 Estimated GFR (MDRD) Amer 106 mL/min >60 [facility] Comment on above: GFR Calc Estimated GFR (MDRD) Non-Af Amer 88 mL/min >60 [facility] Comment on above: Non- GFR Calc Platelets bldOrdered By: Dr. Thomas on 09-02-2022 Platelets (Bld) [#/Vol] 292 10*3/uL 150-450 [facility] Serum or plasma albumin cesilia urement (mass/volume)Ordered By: Dr. Thomas on 09-02-2022 Albumin [Mass/Vol] 3.5 g/dL 3.2-5.0 [facility] Serum or plasma albumin/glob ulin mass ratioOrdered By: Dr. Thomas on 09-02-2022 Albumin/Globulin [Mass ratio] 0.9 {ratio} 0.9-2.4 [facility] Serum or plasma calcium cesilia urement (mass/volume)Ordered By: Dr. Thomas on 09-02-2022 Calcium [Mass/Vol] 8.7 mg/dL 8.5-10.1 [facility] Serum or plasma creatinine m easurement (mass/volume)Ordered By: Dr. Thomas on 09-02-2022 Creatinine [Mass/Vol] 0.69 mg/dL 0.55-1.02 [facility] Comment on above: The validity of the calculated GFR & GFRAA in patients over 70 years has not been determined. Clinical correlation is essential. Serum or plasma urea nitroge n measurement (mass/volume)Ordered By: Dr. Thomas on 09-02-2022 Urea nitrogen [Mass/Vol] 10 mg/dL 7-18 [facility] Thin prep Papanicolaou smear with manual screeningOrdered By: Dr. Thomas on 09-02-2022 Thin prep Papanicolaou smear with manual screening 24 U/L 15-37 [facility] Thin prep Papanicolaou smear with manual screening 4 5-15 [facility] Erythrocyte sedimentation ra teOrdered By: Nisa Frederick on 07-12-2022 ESR (Bld) [Velocity] 12 mm/h 0-30 [facility] Serum or plasma C reactive p rotein measurement (mass/volume)Ordered By: Nisa Frederick on 07-12-2022 CRP [Mass/Vol] 4.89 mg/L 0.0-3.0 [facility] Comment on above: C-Reactive Protein ( CRP) provides useful information for thediagnosis, therapy and monitoring of inflammatory processesand associated diseases. For the evaluation of Relative Riskfor Cardiovascular Disease, a High Sensitivity CRP (HSCRP)should be ordered. Serum or plasma carcinoembry onic antigen measurement (mass/volume)Ordered By: Nisa Frederick on 07-12-2022 Carcinoembryonic Ag [Mass/Vol] 6.2 ng/mL 0.0-4.7 [facility] Comment on above: Nonsmokers <3.9 Smok ers <5.6[employer] Electrochemiluminescence Immunoassay(ECLIA)Values obtained with different assay methods or kitscannot be used interchangeably. Results cannot beinterpreted as absolute evidence of the presence orabsence of malignant disease.Performed at: [facility] [id number] Director: Cirilo Turner PhD, Phone: [phone] Absolute lymphocyte countOrd ered By: Dr. Thomas on 06-28-2022 Lymphocytes Auto (Unsp spec) [#/Vol] 1.22 10*3/uL 0.83-4.51 [facility] Basophil percentageOrdered B y: Dr. Thomas on 06-28-2022 Basophils/100 WBC (Bld) 1.1 % 0-1 [facility] Bilirubin [Mass/Vol] 0.30 mg/dL 0.20-1.00 [facility] Comment on above: For patients on eltr ombopag therapy, use of Dim[place] TBIL is not recommended. Chloride [Moles/Vol] 105 mmol/L 98-107 [facility] Eosinophils/100 WBC (Bld) 2.2 % 0-5 [facility] Glucose [Mass/Vol] 76 mg/dL 74-106 [facility] Neutrophils (Bld) [#/Vol] 1.9 10*3/uL 2.0-7.7 [facility] Neutrophils/100 WBC (Bld) 53.4 % 47-70 [facility] Potassium [Moles/Vol] 3.6 mmol/L 3.5-5.1 [facility] Protein [Mass/Vol] 7.1 g/dL 6.4-8.2 [facility] Sodium [Moles/Vol] 141 mmol/L 136-145 [facility] WBC (Bld) [#/Vol] 3.6 10*3/uL 4.4-11.0 [facility] Blood erythrocytes count (nu mber/volume)Ordered By: Dr. Thomas on 06-28-2022 RBC (Bld) [#/Vol] 4.57 10*6/uL 4.2-5.4 [facility] Blood hemoglobin measurement (mass/volume)Ordered By: Dr. Thomas on 06-28-2022 Hemoglobin (Bld) [Mass/Vol] 13.4 g/dL 12.0-15.0 [facility] Blood lymphocytes/100 leukoc ytesOrdered By: Dr. Thomas on 06-28-2022 Lymphocytes/100 WBC (Bld) 33.6 % 19-41 [facility] Blood monocytes/100 leukocyt esOrdered By: Dr. Thomas on 06-28-2022 Monocytes/100 WBC (Bld) 9.4 % 0-10 [facility] Blood platelet mean volumeOr dered By: Dr. Thomas on 06-28-2022 Platelet mean volume (Bld) [Entitic vol] 10.6 fL 6.2-12.0 [facility] Determination of erythrocyte mean corpuscular volume (MCV)Ordered By: Dr. Thomas on 06-28-2022 MCV (RBC) [Entitic vol] 96.5 fL 81-99 [facility] Hematocrit Auto (Bld) [Volum e fraction]Ordered By: Dr. Thomas on 06-28-2022 Hematocrit (Bld) [Volume fraction] 44.1 % 37-47 [facility] Laboratory - Chemistry and C hemistry - challengeOrdered By: Dr. Thomas on 06-28-2022 ALP [Catalytic activity/Vol] 91 U/L 45-117 [facility] ALT [Catalytic activity/Vol] 17 U/L 13-56 [facility] CO2 [Moles/Vol] 30.0 mmol/L 21.0-32.0 [facility] Globulin (S) [Mass/Vol] 3.7 g/dL 2.2-4.2 [facility] Urea nitrogen/Creatinine [Mass ratio] 16.3 mg/mg 10-20 [facility] Laboratory - Hematology and Cell countsOrdered By: Dr. Thomas on 06-28-2022 Erythrocyte distribution width (RBC) [Entitic vol] 54.9 fL 35.1-43.9 [facility] Erythrocyte distribution width (RBC) [Ratio] 15.4 % 11.6-14.6 [facility] Immature granulocytes/100 WBC (Bld) 0.300 % 0.0-0.9 [facility] Comment on above: IG% - Immature Granu locytes (promyelocytes, myelocytes and metamyelocytes) > 1% indicates that a LEFT SHIFT is Present. MCH (RBC) [Entitic mass] 29.3 pg 27.0-32.0 [facility] Nucleated RBC/100 WBC (Bld) [Ratio] 0 % 0-5 [facility] MCHC Auto (RBC) [Mass/Vol]Or dered By: Dr. Thomas on 06-28-2022 MCHC (RBC) [Mass/Vol] 30.4 g/dL 32-36 [facility] No Panel InformationOrdered By: Dr. Thomas on 06-28-2022 Estimated GFR (MDRD) Amer 98 mL/min >60 [facility] Comment on above: GFR Calc Estimated GFR (MDRD) Non-Af Amer 81 mL/min >60 [facility] Comment on above: Non- GFR Calc Platelets bldOrdered By: Dr. Thomas on 06-28-2022 Platelets (Bld) [#/Vol] 283 10*3/uL 150-450 [facility] Serum or plasma albumin cesilia urement (mass/volume)Ordered By: Dr. Thomas on 06-28-2022 Albumin [Mass/Vol] 3.4 g/dL 3.2-5.0 [facility] Serum or plasma albumin/glob ulin mass ratioOrdered By: Dr. Thomas on 06-28-2022 Albumin/Globulin [Mass ratio] 0.9 {ratio} 0.9-2.4 [facility] Serum or plasma calcium cesilia urement (mass/volume)Ordered By: Dr. Thomas on 06-28-2022 Calcium [Mass/Vol] 8.8 mg/dL 8.5-10.1 [facility] Serum or plasma creatinine m easurement (mass/volume)Ordered By: Dr. Thomas on 06-28-2022 Creatinine [Mass/Vol] 0.74 mg/dL 0.55-1.02 [facility] Comment on above: The validity of the calculated GFR & GFRAA in patients over 70 years has not been determined. Clinical correlation is essential. Serum or plasma urea nitroge n measurement (mass/volume)Ordered By: Dr. Thomas on 06-28-2022 Urea nitrogen [Mass/Vol] 12 mg/dL 7-18 [facility] Thin prep Papanicolaou smear with manual screeningOrdered By: Dr. Thomas on 06-28-2022 Thin prep Papanicolaou smear with manual screening 22 U/L 15-37 [facility] Thin prep Papanicolaou smear with manual screening 6 5-15 [facility] Absolute lymphocyte countOrd ered By: Dr. Thomas on 04-01-2022 Lymphocytes Auto (Unsp spec) [#/Vol] 1.20 10*3/uL 0.83-4.51 [facility] Basophil percentageOrdered B y: Dr. Thomas on 04-01-2022 Basophils/100 WBC (Bld) 1.0 % 0-1 [facility] Bilirubin [Mass/Vol] 0.20 mg/dL 0.20-1.00 [facility] Comment on above: For patients on eltr ombopag therapy, use of Dim[place] TBIL is not recommended. Chloride [Moles/Vol] 103 mmol/L 98-107 [facility] Eosinophils/100 WBC (Bld) 1.0 % 0-5 [facility] Glucose [Mass/Vol] 98 mg/dL 74-106 [facility] Neutrophils (Bld) [#/Vol] 2.2 10*3/uL 2.0-7.7 [facility] Neutrophils/100 WBC (Bld) 57.3 % 47-70 [facility] Potassium [Moles/Vol] 3.8 mmol/L 3.5-5.1 [facility] Protein [Mass/Vol] 7.0 g/dL 6.4-8.2 [facility] Sodium [Moles/Vol] 142 mmol/L 136-145 [facility] WBC (Bld) [#/Vol] 3.8 10*3/uL 4.4-11.0 [facility] Blood erythrocytes count (nu mber/volume)Ordered By: Dr. Thomas on 04-01-2022 RBC (Bld) [#/Vol] 4.57 10*6/uL 4.2-5.4 [facility] Blood hemoglobin measurement (mass/volume)Ordered By: Dr. Thomas on 04-01-2022 Hemoglobin (Bld) [Mass/Vol] 13.4 g/dL 12.0-15.0 [facility] Blood lymphocytes/100 leukoc ytesOrdered By: Dr. Thomas on 04-01-2022 Lymphocytes/100 WBC (Bld) 31.3 % 19-41 [facility] Blood monocytes/100 leukocyt esOrdered By: Dr. Thomas on 04-01-2022 Monocytes/100 WBC (Bld) 9.1 % 0-10 [facility] Blood platelet mean volumeOr dered By: Dr. Thomas on 04-01-2022 Platelet mean volume (Bld) [Entitic vol] 10.7 fL 6.2-12.0 [facility] Determination of erythrocyte mean corpuscular volume (MCV)Ordered By: Dr. Thomas on 04-01-2022 MCV (RBC) [Entitic vol] 96.9 fL 81-99 [facility] Hematocrit Auto (Bld) [Volum e fraction]Ordered By: Dr. Thomas on 04-01-2022 Hematocrit (Bld) [Volume fraction] 44.3 % 37-47 [facility] Laboratory - Chemistry and C hemistry - challengeOrdered By: Dr. Thomas on 04-01-2022 ALP [Catalytic activity/Vol] 86 U/L 45-117 [facility] ALT [Catalytic activity/Vol] 19 U/L 13-56 [facility] CO2 [Moles/Vol] 32.0 mmol/L 21.0-32.0 [facility] Globulin (S) [Mass/Vol] 3.6 g/dL 2.2-4.2 [facility] Urea nitrogen/Creatinine [Mass ratio] 14.5 mg/mg 10-20 [facility] - Hematology and Cell countsOrdered By: Dr. Thomas on 04-01-2022 Erythrocyte distribution width (RBC) [Entitic vol] 54.8 fL 35.1-43.9 [facility] Erythrocyte distribution width (RBC) [Ratio] 15.3 % 11.6-14.6 [facility] Immature granulocytes/100 WBC (Bld) 0.300 % 0.0-0.9 [facility] Comment on above: IG% - Immature Granu locytes (promyelocytes, myelocytes and metamyelocytes) > 1% indicates that a LEFT SHIFT is Present. MCH (RBC) [Entitic mass] 29.3 pg 27.0-32.0 [facility] Nucleated RBC/100 WBC (Bld) [Ratio] 0 % 0-5 [facility] MCHC Auto (RBC) [Mass/Vol]Or dered By: Dr. Thomas on 04-01-2022 MCHC (RBC) [Mass/Vol] 30.2 g/dL 32-36 [facility] No Panel InformationOrdered By: Dr. Thomas on 04-01-2022 Estimated GFR (MDRD) Amer 95 mL/min >60 [facility] Comment on above: GFR Calc Estimated GFR (MDRD) Non-Af Amer 79 mL/min >60 [facility] Comment on above: Non- GFR Calc Platelets bldOrdered By: Dr. Thomas on 04-01-2022 Platelets (Bld) [#/Vol] 302 10*3/uL 150-450 [facility] Serum or plasma albumin cesilia urement (mass/volume)Ordered By: Dr. Thomas on 04-01-2022 Albumin [Mass/Vol] 3.4 g/dL 3.2-5.0 [facility] Serum or plasma albumin/glob ulin mass ratioOrdered By: Dr. Thomas on 04-01-2022 Albumin/Globulin [Mass ratio] 0.9 {ratio} 0.9-2.4 [facility] Serum or plasma calcium cesilia urement (mass/volume)Ordered By: Dr. Thomas on 04-01-2022 Calcium [Mass/Vol] 8.7 mg/dL 8.5-10.1 [facility] Serum or plasma creatinine m easurement (mass/volume)Ordered By: Dr. Thomas on 04-01-2022 Creatinine [Mass/Vol] 0.76 mg/dL 0.55-1.02 [facility] Comment on above: The validity of the calculated GFR & GFRAA in patients over 70 years has not been determined. Clinical correlation is essential. Serum or plasma urea nitroge n measurement (mass/volume)Ordered By: Dr. Thomas on 04-01-2022 Urea nitrogen [Mass/Vol] 11 mg/dL 7-18 [facility] Thin prep Papanicolaou smear with manual screeningOrdered By: Dr. Thomas on 04-01-2022 Thin prep Papanicolaou smear with manual screening 18 U/L 15-37 [facility] Thin prep Papanicolaou smear with manual screening 7 5-15 [facility] Absolute lymphocyte counton 01-04-2022 Lymphocytes Auto (Unsp spec) [#/Vol] 1.24 10*3/uL 0.83-4.51 [facility] Work Phone: [phone] Basophil percentageon 2021 Basophils/100 WBC (Bld) 0.8 % 0-1 [facility] Work Phone: [phone] Bilirubin [Mass/Vol] 0.20 mg/dL 0.20-1.00 [facility] Work Phone: [phone] Comment on above: For patients on eltr ombopag therapy, use of Dimension [place] TBIL is not recommended. Chloride [Moles/Vol] 103 mmol/L 98-107 [facility] Work Phone: Eosinophils/100 WBC (Bld) 1.1 % 0-5 [facility] Work Phone: Glucose [Mass/Vol] 94 mg/dL 74-106 [facility] Work Phone: Neutrophils (Bld) [#/Vol] 2.1 10*3/uL 2.0-7.7 [facility] Work Phone: Neutrophils/100 WBC (Bld) 56.6 % 47-70 [facility] Work Phone: Potassium [Moles/Vol] 3.6 mmol/L 3.5-5.1 [facility] Work Phone: Protein [Mass/Vol] 6.9 g/dL 6.4-8.2 [facility] Work Phone: Sodium [Moles/Vol] 139 mmol/L 136-145 [facility] Work Phone: WBC (Bld) [#/Vol] 3.7 10*3/uL 4.4-11.0 [facility] Work Phone: Blood erythrocytes count (nu mber/volume)on 01-04-2022 RBC (Bld) [#/Vol] 4.31 10*6/uL 4.2-5.4 [facility]: Blood hemoglobin measurement (mass/volume)on 01-04-2022 Hemoglobin (Bld) [Mass/Vol] 12.8 g/dL 12.0-15.0 [facility] Work Phone: Blood lymphocytes/100 leukoc yteson 01-04-2022 Lymphocytes/100 WBC (Bld) 33.2 % 19-41 [facility] Work Phone: Blood monocytes/100 leukocyt eson 01-04-2022 Monocytes/100 WBC (Bld) 8.0 % 0-10 [facility] Work Phone: Blood platelet mean volumeon 01-04-2022 Platelet mean volume (Bld) [Entitic vol] 10.5 fL 6.2-12.0 [facility] Work Phone: Determination of erythrocyte mean corpuscular volume (MCV)on 01-04-2022 MCV (RBC) [Entitic vol] 97.4 fL 81-99 [facility] Work Phone: Hematocrit Auto (Bld) [Volum e fraction]on 01-04-2022 Hematocrit (Bld) [Volume fraction] 42.0 % 37-47 [facility] Work Phone: [phone] Laboratory - Chemistry and C hemistry - challengeon 01-04-2022 ALP [Catalytic activity/Vol] 86 U/L 45-117 [facility] Work Phone: [phone] ALT [Catalytic activity/Vol] 20 U/L 13-56 [facility] Work Phone: [phone] CO2 [Moles/Vol] 33.0 mmol/L 21.0-32.0 [facility] Work Phone: [phone] Globulin (S) [Mass/Vol] 3.6 g/dL 2.2-4.2 [facility] Work Phone: [phone] Urea nitrogen/Creatinine [Mass ratio] 13.0 mg/mg 10-20 [facility] Work Phone: [phone] Laboratory - Hematology and Cell countson 01-04-2022 Erythrocyte distribution width (RBC) [Entitic vol] 57.0 fL 35.1-43.9 [facility] Work Phone: [phone] Erythrocyte distribution width (RBC) [Ratio] 15.9 % 11.6-14.6 [facility] Work Phone: [phone] Immature granulocytes/100 WBC (Bld) 0.300 % 0.0-0.9 [facility] Work Phone: [phone] Comment on above: IG% - Immature Granu locytes (promyelocytes, myelocytes and metamyelocytes) > 1% indicates that a LEFT SHIFT is Present. MCH (RBC) [Entitic mass] 29.7 pg 27.0-32.0 [facility] Work Phone: [phone] Nucleated RBC/100 WBC (Bld) [Ratio] 0 % 0-5 [facility] Work Phone: [phone] MCHC Auto (RBC) [Mass/Vol]on 01-04-2022 MCHC (RBC) [Mass/Vol] 30.5 g/dL 32-36 [facility] Work Phone: [phone] No Panel Informationon 01-04 Estimated GFR (MDRD) Amer 94 mL/min >60 [facility] Work Phone: Comment on above: GFR Calc Estimated GFR (MDRD) Non-Af Amer 78 mL/min >60 [facility] Work Phone: Comment on above: Non- GFR Calc Platelets bldon 01-04-2022 Platelets (Bld) [#/Vol] 272 10*3/uL 150-450 [facility] Work Phone: Serum or plasma albumin cesilia urement (mass/volume)on 01-04-2022 Albumin [Mass/Vol] 3.3 g/dL 3.2-5.0 [facility] Work Phone: Serum or plasma albumin/glob ulin mass ratioon 01-04-2022 Albumin/Globulin [Mass ratio] 0.9 {ratio} 0.9-2.4 [facility] Work Phone: Serum or plasma calcium cesilia urement (mass/volume)on 01-04-2022 Calcium [Mass/Vol] 8.4 mg/dL 8.5-10.1 [facility] Work Phone: Serum or plasma creatinine m easurement (mass/volume)on 01-04-2022 Creatinine [Mass/Vol] 0.77 mg/dL 0.55-1.02 [facility] Work Phone: Comment on above: The validity of the calculated GFR & GFRAA in patients over 70 years has not been determined. Clinical correlation is essential. Serum or plasma urea nitroge n measurement (mass/volume)on 01-04-2022 Urea nitrogen [Mass/Vol] 10 mg/dL 7-18 [facility] Work Phone: Thin prep Papanicolaou smear with manual screeningon 01-04-2022 Thin prep Papanicolaou smear with manual screening 20 U/L 15-37 [facility] Work Phone: Thin prep Papanicolaou smear with manual screening 3 5-15 [facility] Work Phone: No Panel Informationon 12-11 Stool Calprotectin 75 ug/g 0-120 [facility] Work Phone: Comment on above: Concentration Interp retation Follow-Up<16 - 50 ug/g Normal None>50 -120 ug/g Borderline Re-evaluate in 4-6 weeks >120 ug/g Abnormal Repeat as clinically indicatedPerformed at: [facility] [address] [id number] Director: Snow Sun MD, Phone: [phone] Erythrocyte sedimentation ra gopi 12-10-2021 ESR (Bld) [Velocity] 11 mm/h 0-30 [facility] Work Phone: Serum or plasma C reactive p rotein measurement (mass/volume)on 12-10-2021 CRP [Mass/Vol] 9.08 mg/L 0.0-3.0 [facility] Work Phone: Comment on above: C-Reactive Protein ( CRP) provides useful information for thediagnosis, therapy and monitoring of inflammatory processesand associated diseases. For the evaluation of Relative Riskfor Cardiovascular Disease, a High Sensitivity CRP (HSCRP)should be ordered. Serum or plasma carcinoembry onic antigen measurement (mass/volume)on 12-10-2021 Carcinoembryonic Ag [Mass/Vol] 6.1 ng/mL 0.0-4.7 [facility] Work Phone: Comment on above: Nonsmokers <3.9 Smok ers <5.6[employer] Electrochemiluminescence Immunoassay(ECLIA)Values obtained with different assay methods or kitscannot be used interchangeably. Results cannot beinterpreted as absolute evidence of the presence orabsence of malignant disease.Performed at: [facility] [address] [id number] Director: Cirilo Turner PhD, Phone: [phone] Absolute lymphocyte counton 10-15-2021 Lymphocytes Auto (Unsp spec) [#/Vol] 1.27 10*3/uL 0.83-4.51 [facility] Work Phone: Basophil percentageon 2021 Basophils/100 WBC (Bld) 1.1 % 0-1 [facility] Work Phone: Bilirubin [Mass/Vol] 0.30 mg/dL 0.20-1.00 [facility] Work Phone: Comment on above: For patients on eltr ombopag therapy, use of Dimension [place] TBIL is not recommended. Chloride [Moles/Vol] 105 mmol/L 98-107 [facility] Work Phone: Eosinophils/100 WBC (Bld) 1.8 % 0-5 [facility] Work Phone: Glucose [Mass/Vol] 72 mg/dL 74-106 [facility] Work Phone: Neutrophils (Bld) [#/Vol] 2.0 10*3/uL 2.0-7.7 [facility] Work Phone: Neutrophils/100 WBC (Bld) 53.4 % 47-70 [facility] Work Phone: Potassium [Moles/Vol] 3.4 mmol/L 3.5-5.1 [facility] Work Phone: Protein [Mass/Vol] 7.1 g/dL 6.4-8.2 [facility] Work Phone: Sodium [Moles/Vol] 141 mmol/L 136-145 [facility] Work Phone: WBC (Bld) [#/Vol] 3.8 10*3/uL 4.4-11.0 [facility] Work Phone: Blood erythrocytes count (nu mber/volume)on 10-15-2021 RBC (Bld) [#/Vol] 4.49 10*6/uL 4.2-5.4 [facility] Work Phone: Blood hemoglobin measurement (mass/volume)on 10-15-2021 Hemoglobin (Bld) [Mass/Vol] 12.9 g/dL 12.0-15.0 [facility] Work Phone: Blood lymphocytes/100 leukoc yteson 10-15-2021 Lymphocytes/100 WBC (Bld) 33.4 % 19-41 [facility] Work Phone: Blood monocytes/100 leukocyt eson 10-15-2021 Monocytes/100 WBC (Bld) 10.0 % 0-10 [facility] Work Phone: Blood platelet mean volumeon 10-15-2021 Platelet mean volume (Bld) [Entitic vol] 10.3 fL 6.2-12.0 [facility] Work Phone: Determination of erythrocyte mean corpuscular volume (MCV)on 10-15-2021 MCV (RBC) [Entitic vol] 96.2 fL 81-99 [facility] Work Phone: Hematocrit Auto (Bld) [Volum e fraction]on 10-15-2021 Hematocrit (Bld) [Volume fraction] 43.2 % 37-47 [facility] Work Phone: [phone] Laboratory - Chemistry and C hemistry - challengeon 10-15-2021 ALP [Catalytic activity/Vol] 88 U/L 45-117 [facility] Work Phone: ALT [Catalytic activity/Vol] 18 U/L 13-56 [facility] Work Phone: CO2 [Moles/Vol] 29.0 mmol/L 21.0-32.0 [facility] Work Phone: [phone] Globulin (S) [Mass/Vol] 3.8 g/dL 2.2-4.2 [facility] Work Phone: Urea nitrogen/Creatinine [Mass ratio] 12.4 mg/mg 10-20 [facility] Work Phone: Laboratory - Hematology and Cell countson 10-15-2021 Erythrocyte distribution width (RBC) [Entitic vol] 55.8 fL 35.1-43.9 [facility] Work Phone: Erythrocyte distribution width (RBC) [Ratio] 15.7 % 11.6-14.6 [facility] Work Phone: Immature granulocytes/100 WBC (Bld) 0.300 % 0.0-0.9 [facility] Work Phone: Comment on above: IG% - Immature Granu locytes (promyelocytes, myelocytes and metamyelocytes) > 1% indicates that a LEFT SHIFT is Present. MCH (RBC) [Entitic mass] 28.7 pg 27.0-32.0 [facility] Work Phone: Nucleated RBC/100 WBC (Bld) [Ratio] 0 % 0-5 [facility] Work Phone: MCHC Auto (RBC) [Mass/Vol]on 10-15-2021 MCHC (RBC) [Mass/Vol] 29.9 g/dL 32-36 [facility] Work Phone: No Panel Informationon 10-15 Estimated GFR (MDRD) Amer 89 mL/min >60 [facility] Work Phone: Comment on above: GFR Calc Estimated GFR (MDRD) Non-Af Amer 73 mL/min >60 [facility] Work Phone: Comment on above: Non- GFR Calc Platelets bldon 10-15-2021 Platelets (Bld) [#/Vol] 321 10*3/uL 150-450 [facility] Work Phone: Serum or plasma albumin cesilia urement (mass/volume)on 10-15-2021 Albumin [Mass/Vol] 3.3 g/dL 3.2-5.0 [facility] Work Phone: Serum or plasma albumin/glob ulin mass ratioon 10-15-2021 Albumin/Globulin [Mass ratio] 0.9 {ratio} 0.9-2.4 [facility] Work Phone: Serum or plasma calcium cesilia urement (mass/volume)on 10-15-2021 Calcium [Mass/Vol] 8.8 mg/dL 8.5-10.1 [facility] Work Phone: Serum or plasma creatinine m easurement (mass/volume)on 10-15-2021 Creatinine [Mass/Vol] 0.81 mg/dL 0.55-1.02 [facility] Work Phone: Comment on above: The validity of the calculated GFR & GFRAA in patients over 70 years has not been determined. Clinical correlation is essential. Serum or plasma urea nitroge n measurement (mass/volume)on 10-15-2021 Urea nitrogen [Mass/Vol] 10 mg/dL 7-18 [facility] Work Phone: Thin prep Papanicolaou smear with manual screeningon 10-15-2021 Thin prep Papanicolaou smear with manual screening 18 U/L 15-37 [facility] Work Phone: Thin prep Papanicolaou smear with manual screening 7 5-15 [facility] Work Phone: Erythrocyte sedimentation ra gopi 09-19-2021 ESR (Bld) [Velocity] 15 mm/h 0-30 [facility] Work Phone: Serum or plasma C reactive p rotein measurement (mass/volume)on 09-19-2021 CRP [Mass/Vol] 11.70 mg/L 0.0-3.0 [facility] Work Phone: Comment on above: C-Reactive Protein ( CRP) provides useful information for thediagnosis, therapy and monitoring of inflammatory processesand associated diseases. For the evaluation of Relative Riskfor Cardiovascular Disease, a High Sensitivity CRP (HSCRP)should be ordered. No Panel Informationon 08-13 CA 125 Antigen 17.4 U/mL 0.0-38.1 [facility] Work Phone: Comment on above: [employer] El ectrochemiluminescence Immunoassay(ECLIA)Values obtained with different assay methods or kits cannotbe used interchangeably. Results cannot be interpreted asabsolute evidence of the presence or absence of malignantdisease.Performed at: [facility] [employer] [id number] Director: Cirilo Turner PhD, Phone: [phone] Serum or plasma carcinoembry onic antigen measurement (mass/volume)on 08-13-2021 Carcinoembryonic Ag [Mass/Vol] 7.1 ng/mL 0.0-4.7 [facility] Work Phone: [phone] Comment on above: Nonsmokers <3.9 Smok ers <5.6[employer] Electrochemiluminescence Immunoassay(ECLIA)Values obtained with different assay methods or kitscannot be used interchangeably. Results cannot beinterpreted as absolute evidence of the presence orabsence of malignant disease. Thin prep Papanicolaou smear with manual screeningon 08-13-2021 Thin prep Papanicolaou smear with manual screening 192 U/L 84-246 [facility] Work Phone: Basophil percentageon 2021 Creatinine [Mass/Vol] 0.8 mg/dL 0.55-1.02 [facility] Work Phone: No Panel Informationon 08-09 Bedside Estimated GFR (eGFR) > 60.0000 mL/min >60 [facility] Work Phone: [phone] Absolute lymphocyte counton 07-26-2021 Lymphocytes Auto (Unsp spec) [#/Vol] 0.94 10*3/uL 0.83-4.51 [facility] Work Phone: Basophil percentageon 2021 Basophils/100 WBC (Bld) 1.2 % 0-1 [facility] Work Phone: Eosinophils/100 WBC (Bld) 1.2 % 0-5 [facility] Work Phone: Neutrophils (Bld) [#/Vol] 1.9 10*3/uL 2.0-7.7 [facility] Work Phone: Neutrophils/100 WBC (Bld) 57.6 % 47-70 [facility] Work Phone: WBC (Bld) [#/Vol] 3.4 10*3/uL 4.4-11.0 [facility] Work Phone: Blood erythrocytes count (nu mber/volume)on 07-26-2021 RBC (Bld) [#/Vol] 4.27 10*6/uL 4.2-5.4 [facility] Work Phone: Blood hemoglobin measurement (mass/volume)on 07-26-2021 Hemoglobin (Bld) [Mass/Vol] 12.6 g/dL 12.0-15.0 [facility] Work Phone: Blood lymphocytes/100 leukoc yteson 07-26-2021 Lymphocytes/100 WBC (Bld) 28.1 % 19-41 [facility] Work Phone: Blood monocytes/100 leukocyt eson 07-26-2021 Monocytes/100 WBC (Bld) 11.6 % 0-10 [facility] Work Phone: Blood platelet mean volumeon 07-26-2021 Platelet mean volume (Bld) [Entitic vol] 10.8 fL 6.2-12.0 [facility] Work Phone: [phone] Determination of erythrocyte mean corpuscular volume (MCV)on 07-26-2021 MCV (RBC) [Entitic vol] 97.4 fL 81-99 [facility] Work Phone: [phone] Hematocrit Auto (Bld) [Volum e fraction]on 07-26-2021 Hematocrit (Bld) [Volume fraction] 41.6 % 37-47 [facility] Work Phone: [phone] Laboratory - Hematology and Cell countson 07-26-2021 Erythrocyte distribution width (RBC) [Entitic vol] 51.9 fL 35.1-43.9 [facility] Work Phone: [phone] Erythrocyte distribution width (RBC) [Ratio] 14.5 % 11.6-14.6 [facility] Work Phone: [phone] Immature granulocytes/100 WBC (Bld) 0.300 % 0.0-0.9 [facility] Work Phone: [phone] Comment on above: IG% - Immature Granu locytes (promyelocytes, myelocytes and metamyelocytes) > 1% indicates that a LEFT SHIFT is Present. MCH (RBC) [Entitic mass] 29.5 pg 27.0-32.0 [facility] Work Phone: [phone] Nucleated RBC/100 WBC (Bld) [Ratio] 0 % 0-5 [facility] Work Phone: MCHC Auto (RBC) [Mass/Vol]on 07-26-2021 MCHC (RBC) [Mass/Vol] 30.3 g/dL 32-36 [facility] Work Phone: Platelets bldon 07-26-2021 Platelets (Bld) [#/Vol] 293 10*3/uL 150-450 [facility] Work Phone: Basophil percentageon 2021 Cholesterol [Mass/Vol] 193 mg/dL <200 [facility] Work Phone: Comment on above: <200 mg/dL Desirable 200-240 mg/dL Borderline >240 mg/dL High Risk Triglyceride [Mass/Vol] 68 mg/dL [facility] Work Phone: Comment on above: The drugs N-Acetylcy steine and Metamizole may falsely depress this assay.Serum Triglycerides Reference Interval Normal <150 mg/dL Borderline high 150 - 199 mg/dL High 200 - 499 mg/dL Very High > or = 500 mg/dL No Panel Informationon 07-16 Vitamin D 25-Hydroxy 43.1 ng/mL [facility] Work Phone: Comment on above: Vitamin D 25(OH) Sta tus Range Deficiency <20 ng/mL (50nmol/L) Insufficiency 20 - 30 ng/mL (50 - 75 nmol/L) Sufficiency 30 - 100 ng/mL (75 - 250 nmol/L) Toxicity >100 ng/mL (>250 nmol/L) Serum or plasma cholesterol in HDL measurement (mass/volume)on 07-16-2021 Cholesterol in HDL [Mass/Vol] 72 mg/dL [facility] Work Phone: Comment on above: The drugs N-Acetylcy steine and Metamizole may falsely depress this assay. Reference Range HDL <40 mg/dL Low HDL Cholesterol HDL >or= 60 mg/dL High HDL Cholesterol Serum or plasma cholesterol in VLDL measurement (mass/volume)on 07-16-2021 Cholesterol in VLDL [Mass/Vol] 14 mg/dL 5-40 [facility] Work Phone: Serum or plasma low density lipoprotein (LDL) cholesterol measurement (mass/volume)on 07-16-2021 Cholesterol in LDL [Mass/Vol] 107 mg/dL 0-130 [facility] Work Phone: [phone] Absolute lymphocyte counton 07-02-2021 Lymphocytes Auto (Unsp spec) [#/Vol] 0.92 10*3/uL 0.83-4.51 [facility] Work Phone: [phone] Basophil percentageon 2021 Basophils/100 WBC (Bld) 1.8 % 0-1 [facility] Work Phone: [phone] Bilirubin [Mass/Vol] 0.30 mg/dL 0.20-1.00 [facility] Work Phone: [phone] Comment on above: For patients on eltr ombopag therapy, use of Dimension [place] TBIL is not recommended. Chloride [Moles/Vol] 102 mmol/L 98-107 [facility] Work Phone: Eosinophils/100 WBC (Bld) 0.7 % 0-5 [facility] Work Phone: [phone] Glucose [Mass/Vol] 140 mg/dL 74-106 [facility] Work Phone: [phone] Comment on above: Fasting Glucose resu lt greater than or equal to 126 mg/dL suggests DIABETES MELLITUS per A.D.A. criteria. Neutrophils (Bld) [#/Vol] 1.6 10*3/uL 2.0-7.7 [facility] Work Phone: [phone] Neutrophils/100 WBC (Bld) 55.7 % 47-70 [facility] Work Phone: [phone] Potassium [Moles/Vol] 3.5 mmol/L 3.5-5.1 [facility] Work Phone: [phone] Protein [Mass/Vol] 7.5 g/dL 6.4-8.2 [facility] Work Phone: [phone] Sodium [Moles/Vol] 139 mmol/L 136-145 [facility] Work Phone: WBC (Bld) [#/Vol] 2.8 10*3/uL 4.4-11.0 [facility]: Blood erythrocytes count (nu mber/volume)on 07-02-2021 RBC (Bld) [#/Vol] 4.56 10*6/uL 4.2-5.4 [facility]: Blood hemoglobin measurement (mass/volume)on 07-02-2021 Hemoglobin (Bld) [Mass/Vol] 13.9 g/dL 12.0-15.0 [facility] Work Phone: Blood lymphocytes/100 leukoc yteson 07-02-2021 Lymphocytes/100 WBC (Bld) 32.9 % 19-41 [facility] Work Phone: Blood monocytes/100 leukocyt eson 07-02-2021 Monocytes/100 WBC (Bld) 8.9 % 0-10 [facility] Work Phone: Blood platelet mean volumeon 07-02-2021 Platelet mean volume (Bld) [Entitic vol] 10.9 fL 6.2-12.0 [facility] Work Phone: [phone] Determination of erythrocyte mean corpuscular volume (MCV)on 07-02-2021 MCV (RBC) [Entitic vol] 97.6 fL 81-99 [facility] Work Phone: Hematocrit Auto (Bld) [Volum e fraction]on 07-02-2021 Hematocrit (Bld) [Volume fraction] 44.5 % 37-47 [facility] Work Phone: [phone] Laboratory - Chemistry and C hemistry - challengeon 07-02-2021 ALP [Catalytic activity/Vol] 90 U/L 45-117 [facility] Work Phone: ALT [Catalytic activity/Vol] 24 U/L 13-56 [facility] Work Phone: CO2 [Moles/Vol] 31.0 mmol/L 21.0-32.0 [facility] Work Phone: Globulin (S) [Mass/Vol] 4.1 g/dL 2.2-4.2 [facility] Work Phone: Urea nitrogen/Creatinine [Mass ratio] 16.7 mg/mg 10-20 [facility] Work Phone: Laboratory - Hematology and Cell countson 07-02-2021 Erythrocyte distribution width (RBC) [Entitic vol] 50.4 fL 35.1-43.9 [facility] Work Phone: Erythrocyte distribution width (RBC) [Ratio] 14.0 % 11.6-14.6 [facility] Work Phone: Immature granulocytes/100 WBC (Bld) 0.000 % 0.0-0.9 [facility] Work Phone: Comment on above: IG% - Immature Granu locytes (promyelocytes, myelocytes and metamyelocytes) > 1% indicates that a LEFT SHIFT is Present. MCH (RBC) [Entitic mass] 30.5 pg 27.0-32.0 [facility] Work Phone: Nucleated RBC/100 WBC (Bld) [Ratio] 0 % 0-5 [facility] Work Phone: MCHC Auto (RBC) [Mass/Vol]on 07-02-2021 MCHC (RBC) [Mass/Vol] 31.2 g/dL 32-36 [facility] Work Phone: No Panel Informationon 07-02 Estimated GFR (MDRD) Amer 93 mL/min >60 [facility] Work Phone: Comment on above: GFR Calc Estimated GFR (MDRD) Non-Af Amer 77 mL/min >60 [facility] Work Phone: Comment on above: Non- GFR Calc Platelets bldon 07-02-2021 Platelets (Bld) [#/Vol] 304 10*3/uL 150-450 [facility] Work Phone: Serum or plasma albumin cesilia urement (mass/volume)on 07-02-2021 Albumin [Mass/Vol] 3.4 g/dL 3.2-5.0 [facility] Work Phone: Serum or plasma albumin/glob ulin mass ratioon 07-02-2021 Albumin/Globulin [Mass ratio] 0.8 {ratio} 0.9-2.4 [facility] Work Phone: Serum or plasma calcium cesilia urement (mass/volume)on 07-02-2021 Calcium [Mass/Vol] 9.1 mg/dL 8.5-10.1 [facility] Work Phone: Serum or plasma creatinine m easurement (mass/volume)on 07-02-2021 Creatinine [Mass/Vol] 0.78 mg/dL 0.55-1.02 [facility] Work Phone: Comment on above: The validity of the calculated GFR & GFRAA in patients over 70 years has not been determined. Clinical correlation is essential. Serum or plasma urea nitroge n measurement (mass/volume)on 07-02-2021 Urea nitrogen [Mass/Vol] 13 mg/dL 7-18 [facility] Work Phone: Thin prep Papanicolaou smear with manual screeningon 07-02-2021 Thin prep Papanicolaou smear with manual screening 22 U/L 15-37 [facility] Work Phone: Thin prep Papanicolaou smear with manual screening 6 5-15 [facility] Work Phone: No Panel Informationon 06-11 Estimated GFR (MDRD) Amer 99 mL/min >60 [facility] Work Phone: Comment on above: GFR Calc Estimated GFR (MDRD) Non-Af Amer 82 mL/min >60 [facility] Work Phone: Comment on above: Non- GFR Calc Serum or plasma creatinine m easurement (mass/volume)on 06-11-2021 Creatinine [Mass/Vol] 0.74 mg/dL 0.55-1.02 [facility] Work Phone: Comment on above: The validity of the calculated GFR & GFRAA in patients over 70 years has not been determined. Clinical correlation is essential. 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 ethan ferguson at three year interval. COMPARISON:October 21, 2014 ORDERING CLINICIAN:RAUDEL MILLER TECHNIQUE:Low dose axial CT images of the head were obtained. Subsequently, 90mL Optiray 350 was administered intravenously and axial images wereacquired. Coronal, sagittal, and 3-D reconstructions were providedfor review. FINDINGS:The low-dose unenhanced images of the head demonstrate the patient maribeth status post a right-sided craniotomy. There is artifact from ananeurysm clip centered to the right of midline in the parasellarregion. There is prominence of ventricles and sulci compatible with diffuseparenchymal volume loss. There are nonspecific areas of diminishedattenuation in the subcortical and periventricular white matter.There are small areas of encephalomalacia in the right frontal andtemporal lobes. There is no acute intracranial hemorrhage. No masseffect or midline shift is identified. Visualized paranasal sinuses are clear. There is a left frontal burrhole. The mastoid air cells are clear. Anterior circulation: There is a focal outpouching arising superiorlyfrom the ophthalmic segment of the left ICA thought to correspond andres infundibular origin of the ophthalmic artery. The intracranialinternal carotid arteries are patent. The proximal anterior andmiddle cerebral arteries are patent. There is artifact from aneurysmclip centered to the right of midline in the suprasellar region.There is a small anterior communicating artery. Posterior circulation: Bilateral intracranial vertebral arteries,vertebrobasilar junction, basilar artery and proximal posteriorcerebral arteries are normal. 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 No evidence for aneurysm.Electronically signed by: DAVIDE ARZOLA DO Normal [facility] Vital Signs Date Time Vital Sign Value Performing Clinician Jesus [email or web address] 01-13-2025 09:27-0400 Body height 152.[address] Kristina Richard MD Work Phone: [facility] 01-13-2025 09:27-0400 Body mass index (BMI) [Ratio] 38.7 kg/m2 Dr. Kristina Richard MD Work Phone: [facility] 01-13-2025 09:27-0400 Body temperature 96.8 [degF] Dr. Kristina Richard MD Work Phone: [facility] 01-13-2025 09:27-0400 Body weight 89.[address] Kristina Richard MD Work Phone: [facility] 01-13-2025 09:27-0400 Diastolic blood pressure 95 mm[Hg] Dr. Kristina Richard MD Work Phone: [facility] 01-13-2025 09:27-0400 Heart rate 101 /min Dr. Kristina Richard MD Work Phone: [facility] 01-13-2025 09:27-0400 Respiratory rate 18 /min Dr. Kristina Richard MD Work Phone: [facility] 01-13-2025 09:27-0400 SaO2% (BldA) [Mass fraction] 95 % Dr. Kristina Richard MD Work Phone: [facility] 01-13-2025 09:27-0400 Systolic blood pressure 154 mm[Hg] Dr. Kristina Richard MD Work Phone: [facility] 12-27-2024 10:23-0400 Body height 152.[address] Kristina Richard MD Work Phone: [facility] 12-27-2024 10:23-0400 Body mass index (BMI) [Ratio] 38.7 kg/m2 Dr. Kristina Richard MD Work Phone: [facility] 12-27-2024 10:23-0400 Body temperature 98 [degF] Dr. Kristina Richard MD Work Phone: [facility] 12-27-2024 10:23-0400 Body weight 89.[address] Kristina Richard MD Work Phone: 4(458)438-522620 [address] 12-27-2024 10:23-0400 Diastolic blood pressure 90 mm[Hg] Dr. Kristina Richard MD Work Phone: 8(751)809-431920 [address] 12-27-2024 10:23-0400 Heart rate 86 /min Dr. Kristina Richard MD Work Phone: 1(406)967-492720 [address] 12-27-2024 10:23-0400 Respiratory rate 16 /min Dr. Kristina Richard MD Work Phone: 8(185)748-656580 [place] [address] 12-27-2024 10:23-0400 SaO2% (BldA) [Mass fraction] 96 % Dr. Kristina Richard MD Work Phone: [facility] 12-27-2024 10:23-0400 Systolic blood pressure 153 mm[Hg] Dr. Kristina Richard MD Work Phone: [facility] 12-07-2024 13:42-0400 Diastolic blood pressure 83 mm[Hg] Dr. Kristina Richard MD Work Phone: [facility] 12-07-2024 13:42-0400 Heart rate 88 /min Dr. Kristina Richard MD Work Phone: [facility] 12-07-2024 13:42-0400 Respiratory rate 17 /min Dr. Kristina Richard MD Work Phone: [facility] 12-07-2024 13:42-0400 SaO2% (BldA) [Mass fraction] 94 % Dr. Kristina Richard MD Work Phone: [facility] 12-07-2024 13:42-0400 Systolic blood pressure 140 mm[Hg] Dr. Kristina Richard MD Work Phone: [facility] 11-08-2024 08:26-0400 Body height 152.[address] Kristina Richard MD Work Phone: 3(645)303-929980 [place] [address] 11-08-2024 08:26-0400 Diastolic blood pressure 68 mm[Hg] Dr. Kristina Richard MD Work Phone: 8(424)538-695241 [place] [address] 11-08-2024 08:26-0400 Respiratory rate 16 /min Dr. Kristina Richard MD Work Phone: 6(916)922-967641 [place] [address] 11-08-2024 08:26-0400 Systolic blood pressure 142 mm[Hg] Dr. Kristina Richard MD Work Phone: 9(359)140-838141 [place] [address] 09-30-2024 13:42-0400 Body height 152.[address] Kristina Richard MD Work Phone: 5(891)680-634641 [place] [address] 09-30-2024 13:42-0400 Body mass index (BMI) [Ratio] 38 kg/m2 Dr. Kristina Richard MD Work Phone: 7(656)546-001041 [place] [address] 09-30-2024 13:42-0400 Body weight 88.[address] Kristina Richard MD Work Phone: 2(016)982-625941 [place] [address] 09-30-2024 13:42-0400 Diastolic blood pressure 118 mm[Hg] Dr. Kristina Richard MD Work Phone: 3(577)741-296580 [place] [address] 09-30-2024 13:42-0400 Respiratory rate 18 /min Dr. Kristina Richard MD Work Phone: 5(227)853-045080 [place] [address] 09-30-2024 13:42-0400 Systolic blood pressure 169 mm[Hg] Dr. Kristina Richard MD Work Phone: 0(294)165-393680 [place] [address] 07-01-2024 09:06-0500 Body height 153.[address] Kristina Richard MD Work Phone: 6(487)634-210780 [place] [address] 07-01-2024 09:06-0500 Body mass index (BMI) [Ratio] 37.3 kg/m2 Dr. Kristina Richard MD Work Phone: [facility] 07-01-2024 09:06-0500 Body temperature 98 [degF] Dr. Kristina Richard MD Work Phone: [facility] 07-01-2024 09:06-0500 Body weight 87.[address] Kristina Richard MD Work Phone: [facility] 07-01-2024 09:06-0500 Diastolic blood pressure 86 mm[Hg] Dr. Kristina Richard MD Work Phone: [facility] 07-01-2024 09:06-0500 Heart rate 83 /min Dr. Kristina Richard MD Work Phone: [facility] 07-01-2024 09:06-0500 Respiratory rate 16 /min Dr. Kristina Richard MD Work Phone: [facility] 07-01-2024 09:06-0500 SaO2% (BldA) [Mass fraction] 99 % Dr. Kristina Richard MD Work Phone: [facility] 07-01-2024 09:06-0500 Systolic blood pressure 132 mm[Hg] Dr. Kristina Richard MD Work Phone: [facility] 09-04-2023 02:03-0400 Body temperature 97.2 [degF] [facility] 09-04-2023 02:03-0400 Diastolic blood pressure 91 mm[Hg] [facility] 09-04-2023 02:03-0400 Heart rate 88 /min [facility] 09-04-2023 02:03-0400 Respiratory rate 16 /min [facility] 09-04-2023 02:03-0400 SaO2% (BldA) [Mass fraction] 94 % [facility] 09-04-2023 02:03-0400 Systolic blood pressure 169 mm[Hg] [facility] 09-03-2023 23:05-0400 Inhaled oxygen flow rate 4 L/min [facility] 09-03-2023 22:04-0400 Body height 154.94 cm [facility] 09-03-2023 22:04-0400 Body mass index (BMI) [Ratio] 40.4 kg/m2 [facility] 09-03-2023 22:04-0400 Body weight 97.1 kg [facility] 12-10-2021 13:25-0400 Body height 154.[address] Kristina Richard Work Phone: [facility] Work Phone: 12-10-2021 13:25-0400 Body mass index (BMI) [Ratio] 36.9 kg/m2 Dr. Kristina Richard Work Phone: [facility] Work Phone: 12-10-2021 13:25-0400 Body weight 88.[address] Kristina Richard Work Phone: [facility] Work Phone: 12-10-2021 13:25-0400 Diastolic blood pressure 86 mm[Hg] Dr. Kristina Richard Work Phone: [facility] Work Phone: 12-10-2021 13:25-0400 Heart rate 85 /min Dr. Kristina Richard Work Phone: [facility] Work Phone: 12-10-2021 13:25-0400 SaO2% (BldA) [Mass fraction] 97 % Dr. Kristina Richard Work Phone: [facility] Work Phone: 12-10-2021 13:25-0400 Systolic blood pressure 130 mm[Hg] Dr. Kristina Richard Work Phone: [facility] Work Phone: 11-19-2021 19:51-0400 Diastolic blood pressure 79 mm[Hg] Dr. Kristina Richard Work Phone: [facility] Work Phone: 11-19-2021 19:51-0400 Heart rate 79 /min Dr. Kristina Richard Work Phone: [facility] Work Phone: 11-19-2021 19:51-0400 Respiratory rate 18 /min Dr. Kristina Richard Work Phone: [facility] Work Phone: 11-19-2021 19:51-0400 SaO2% (BldA) [Mass fraction] 99 % Dr. Kristina Richard Work Phone: [facility] Work Phone: 11-19-2021 19:51-0400 Systolic blood pressure 170 mm[Hg] Dr. Kristina Richard Work Phone: [facility] Work Phone: 11-19-2021 16:22-0400 Body height 154.[address] Kristina Richard Work Phone: [facility] Work Phone: 11-19-2021 16:22-0400 Body mass index (BMI) [Ratio] 35.9 kg/m2 Dr. Kristina Richard Work Phone: [facility] Work Phone: 11-19-2021 16:22-0400 Body temperature 98.3 [degF] Dr. Kristina Richard Work Phone: [facility] Work Phone: 11-19-2021 16:22-0400 Body weight 86.[address] Kristina Richard Work Phone: [facility] Work Phone: 09-19-2021 13:57-0400 Body mass index (BMI) [Ratio] 36.2 kg/m2 Dr. Kristina Richard Work Phone: [facility] Work Phone: 09-19-2021 13:57-0400 Body weight 87.[address] Kristina Richard Work Phone: [facility] Work Phone: 09-19-2021 13:57-0400 Diastolic blood pressure 87 mm[Hg] Dr. Kristina Richard Work Phone: [facility] Work Phone: 09-19-2021 13:57-0400 Heart rate 95 /min Dr. Kristina Richard Work Phone: [facility] Work Phone: 09-19-2021 13:57-0400 SaO2% (BldA) [Mass fraction] 97 % Dr. Kristina Richard Work Phone: [facility] Work Phone: 09-19-2021 13:57-0400 Systolic blood pressure 123 mm[Hg] Dr. Kristina Richard Work Phone: [facility] Work Phone: 09-19-2021 13:57-0400 Body height 154.[address] Kristina Richard Work Phone: [facility] Work Phone: 09-19-2021 13:57-0400 Body mass index (BMI) [Ratio] 36.2 kg/m2 Dr. Kristina Richard Work Phone: [facility] Work Phone: 09-19-2021 13:57-0400 Body weight 87.[address] Kristina Richard Work Phone: [facility] Work Phone: 09-19-2021 13:57-0400 Diastolic blood pressure 87 mm[Hg] Dr. Kristina Richard Work Phone: [facility] Work Phone: 09-19-2021 13:57-0400 Heart rate 95 /min Dr. Kristina Richard Work Phone: [facility] Work Phone: 09-19-2021 13:57-0400 SaO2% (BldA) [Mass fraction] 97 % Dr. Kristina Richard Work Phone: [facility] Work Phone: 09-19-2021 13:57-0400 Systolic blood pressure 123 mm[Hg] Dr. Kristina Richard Work Phone: [facility] Work Phone: 08-21-2021 07:30-0400 Body temperature 97.4 [degF] Dr. Kristina Richard Work Phone: [facility] Work Phone: 08-21-2021 07:30-0400 Diastolic blood pressure 96 mm[Hg] Dr. Kristina Richard Work Phone: [facility] Work Phone: 08-21-2021 07:30-0400 Heart rate 81 /min Dr. Kristina Richard Work Phone: [facility] Work Phone: 08-21-2021 07:30-0400 Respiratory rate 18 /min Dr. Kristina Richard Work Phone: [facility] Work Phone: 08-21-2021 07:30-0400 SaO2% (BldA) [Mass fraction] 99 % Dr. Kristina Richard Work Phone: [facility] Work Phone: 08-21-2021 07:30-0400 Systolic blood pressure 136 mm[Hg] Dr. Kristina Richard Work Phone: [facility] Work Phone: 08-21-2021 06:01-0400 Body height 154.[address] Kristina Richard Work Phone: [facility] Work Phone: 08-21-2021 06:01-0400 Body mass index (BMI) [Ratio] 35.4 kg/m2 Dr. Kristina Richard Work Phone: [facility] Work Phone: 08-21-2021 06:01-04[address] Body weight [address] Kristina Richard Work Phone: [facility] Work Phone: Encounters Encounter Date Encounter Type Care Provider Facility Start: 02-24-2025 ambulatory Davie Mckeon Facility: [facility] Start: 01-13-2025 End: 01-13-[address] Davie Mckeon MD -[facility] Work Phone: Start: 01-13-2025 End: 01-13-[address] Kristina Richard MD Work Phone: -[facility] Start: 12-27-2024 End: 12-27-[address] Deangelo White MD -[facility] Work Phone: Start: 12-27-2024 End: 12-27-[address] Kristina Richard MD Work Phone: -[facility] Start: 12-07-2024 End: 12-07-[address] Kristina Richard MD Work Phone: -Laboratory [facility] Start: 12-07-2024 End: 12-07-[address] Davie Mckeon MD -Laboratory [facility] Work Phone: Start: 12-07-2024 End: 12-07-[address] Davie Mckeon MD -[facility] Work Phone: Start: 12-07-2024 End: 12-07-[address] Kristina Richard MD Work Phone: -[facility] Start: 12-07-2024 End: 12-07-2024 ambulatory Shannan Huan Facility:[facility] Start: 11-17-2024 End: 11-17-[address] Kristina Richard MD Work Phone: -Outpatient Breast Imaging Start: 11-17-2024 End: 11-17-[address] Kristina Richard MD -[facility] Work Phone: Start: 11-17-2024 End: 11-17-2024 ambulatory [facility] Facility:[facility] Start: 11-08-2024 End: 11-08-[address] Davie Mckeon MD -[facility] Work Phone: Start: 11-08-2024 End: 11-08-[address] Kristina Richard MD Work Phone: -[facility] Start: 11-01-2024 End: 11-01-[address] Kristina Richard MD Work Phone: [facility] Work Phone: Start: 11-01-2024 End: 11-01-[address] Sanjana Thomas MD -Laboratory [place] Work Phone: Start: 11-01-2024 End: 11-01-2024 ambulatory Sanjana Thomas Facility:[facility] Start: 10-27-2024 End: 10-27-[address] Kristina Richard MD Work Phone: -Cat Scan [facility] Start: 10-27-2024 End: 10-27-[address] Davie Mckeon MD -Cat Scan [facility] Work Phone: Start: 10-27-2024 End: 10-27-2024 ambulatory [facility] Facility:[facility] Start: 09-30-2024 End: 09-30-[address] Kristina Richard MD Work Phone: [facility] Work Phone: Start: 09-30-2024 End: 09-30-[address] Davie Mckeon MD -Laboratory Specimen Work Phone: Start: 09-30-2024 End: 09-30-[address] Davie Mckeon MD -[facility] Work Phone: Start: 09-30-2024 End: 09-30-2024 ambulatory Chalon Huan Facility:[facility] Start: 09-30-2024 End: 09-30-2024 ambulatory [facility] Facility:[facility] Start: 08-30-2024 End: 08-30-[address] Kristina Richard MD -Ultrasound [facility] Work Phone: Start: 08-30-2024 End: 08-30-2024 ambulatory Kristina Richard Facility:[facility] Start: 08-12-2024 End: 08-12-[address] Kristina Richard MD Work Phone: [facility] Work Phone: Start: 08-12-2024 End: 08-12-[address] Sanjana Thomas MD -Laboratory, [place] Work Phone: Start: 08-12-2024 End: 08-12-2024 ambulatory Sanjana Thomas Facility:[facility] Start: 07-06-2024 End: 07-06-[address] Kristina Richard MD Work Phone: [facility] Work Phone: Start: 07-06-2024 End: 07-06-[address] Deangelo White MD -Laboratory, [place] Work Phone: Start: 07-06-2024 End: 07-06-2024 ambulatory Deangelo White Facility:[facility] Start: 07-01-2024 End: 07-01-[address] Deangelo White MD -[facility] Work Phone: Start: 07-01-2024 End: 07-01-2024 ambulatory Kristina Richard Facility:[facility] Start: 05-13-2024 End: 05-13-[address] Sanjana Thomas MD -Laboratory, [place] Work Phone: Start: 05-13-2024 End: 05-13-2024 [facility] Start: 04-19-2024 End: 04-19-2024 Patient encounter procedure Stephen Carrizales [facility] Gastroenter[facility] Work Phone: Start: 04-19-2024 End: 04-19-2024 ambulatory Stephen Carrizales Facility:[facility] Start: 02-20-2024 End: 02-20-2024 ambulatory [facility] Facility:[facility] Start: 09-03-2023 End: 09-04-2023 Emergency department patient visit [facility]-Emergency Department Work Phone: Start: 08-13-2023 End: 08-13-2023 ambulatory [facility] Work Phone: Start: 08-13-2023 End: 08-13-2023 Patient encounter procedure [facility] Work Phone: Start: 05-19-2023 End: 05-19-2023 Patient encounter procedure [facility] Work Phone: Start: 02-18-2023 End: 02-18-[address] Kristina Richard Work Phone: [facility] Work Phone: Start: 02-18-2023 End: 02-18-[address] Kristina Richard Work Phone: [facility] Work Phone: Start: 01-02-2023 End: 01-02-[address] Kristina Richard Work Phone: [facility], Specimen Work Phone: Start: 12-19-2022 End: 12-19-[address] Kristina Richard Work Phone: [facility] Work Phone: Start: 12-19-2022 End: 12-19-[address] Kristina Richard Work Phone: [facility]-Laboratory, Specimen Work Phone: Start: 12-03-2022 End: 12-03-[address] Kristina Richard Work Phone: [facility] Work Phone: Start: 12-03-2022 End: 12-03-[address] Kristina Richard Work Phone: [facility]-Laboratory, [place] Work Phone: Start: 11-18-2022 End: 11-18-[address] Kristina Richard Work Phone: [facility] Gastroenterology Work Phone: Start: 11-06-2022 Non-patient / Non-visit Dr. Kristina Richard Work Phone: [facility] Start: 11-06-2022 End: 11-06-2022 Admission to same day surgery center Dr. Kristina Richard Work Phone: [facility]-Endoscopy Work Phone: Start: 11-06-2022 End: 11-06-[address] Kristina Richard Work Phone: [facility] Work Phone: Start: 09-16-2022 End: 09-16-[address] Kristina Richard Work Phone: [facility] Work Phone: Start: 09-16-2022 End: 09-16-[address] Kristina Richard Work Phone: [facility]-Outpatient Breast Imaging Start: 09-02-2022 End: 09-02-[address] Kristina Richard Work Phone: [facility] Work Phone: Start: 09-02-2022 End: 09-02-[address] Kristina Richard Work Phone: [facility] Start: 07-12-2022 End: 07-12-[address] Kristina Richard Work Phone: [facility] Work Phone: Start: 07-12-2022 End: 07-12-[address] Kristina Richard Work Phone: [facility] Gastroenterology Start: 06-28-2022 End: 06-28-2022 ambulatory [facility] Work Phone: Start: 06-28-2022 End: 06-28-2022 Patient encounter procedure [facility] Start: 04-01-2022 End: 04-01-[address] Kristina Richard Work Phone: [facility] Work Phone: Start: 04-01-2022 End: 04-01-[address] Kristina Richard Work Phone: [facility] Start: 01-04-2022 End: 01-04-[address] Kristina Richard Work Phone: [facility] Work Phone: Start: 01-04-2022 End: 01-04-[address] Kristina Richard Work Phone: [facility] Start: 12-11-2021 End: 12-11-[address] Kristina Richard Work Phone: [facility], Specimen Start: 12-10-2021 End: 12-10-[address] Kristina Richard Work Phone: [facility] Gastroenterology Start: 11-19-2021 End: 11-19-2021 Emergency department patient visit Dr. Kristina Richard Work Phone: [facility]-Emergency Department Start: 10-15-2021 End: 10-15-[address] Kristina Richard Work Phone: [facility] Start: 09-19-2021 End: 09-19-[address] Kristina Richard Work Phone: [facility] Gastroenterology Start: 08-21-2021 Non-patient / Non-visit Dr. Kristina Richard Work Phone: [facility] Start: 08-21-2021 End: 08-21-2021 Admission to same day surgery center Dr. Kristina Richard Work Phone: [facility]-Endoscopy Start: 08-09-2021 End: 08-09-[address] Kristina Richard Work Phone: [facility] Start: 07-30-2021 End: 07-30-[address] Kristina Richard Work Phone: [facility] Gastroenterology Start: 07-26-2021 End: 07-26-[address] Kristina Richard Work Phone: [facility] Start: 07-16-2021 End: 07-16-[address] Kristina Richard Work Phone: [facility] Start: 07-02-2021 End: 07-02-[address] Kristina Richard Work Phone: [facility] Start: 06-15-2021 End: 06-15-[address] Kristina Richard Work Phone: [facility]-Cat Scan, [facility] Start: 06-11-[address] Kristina Richard Work Phone: [facility]-Laboratory, [place] Start: 11-24-2017 Patient encounter Raudel Miller Facility:[facility] Procedures Date Procedure Procedure Detail Performing Clinician Start: 11-17-2024 Screening mammography Akua Richard MD Work Phone: Start: 10-27-2024 CT of soft tissues o f neck with contrast Dr. Kristina Richard MD Work Phone: Start: 08-30-2024 Ultrasonography of t hyroid and parathyroid Dr. Kristina Richard MD Work Phone: Start: 07-06-[address] Kristina Richard MD Work Phone: Start: 07-06-2024 Urine lambda light c presley measurement Dr. Kristina Richard MD Work Phone: Start: 09-04-2023 CT angiography of head Start: 09-04-2023 Plain chest X-ray Start: 09-03-2023 CT of head without contrast Start: 09-03-2023 SARS-CoV-2, Influenz a & RSV (PCR) Start: 01-02-[address] Kristina cuevas Work Phone: Start: 12-19-[address] Kristina Richard Work Phone: Start: 11-06-[address] Kristina rivas Work Phone: Start: 09-16-2022 Screening mammography Akua Richard Work Phone: Start: 11-19-2021 Computed tomography of thoracic spine without contrast Dr. Kristina Richard Work Phone: Start: 11-19-2021 CT cervical spine wi thout contrast Dr. Kristina Richard Work Phone: Start: 11-19-[address] Kristina rivas Work Phone: Start: 11-19-2021 CT of head without contrast Dr. Kristina Richard Work Phone: Start: 08-21-2021 End: 08-21-[address] Kristina Richard Work Phone: Start: 08-21-[address] Kristina rivas Work Phone: Start: 08-09-2021 Computed tomography of abdomen and pelvis with contrast Dr. Kristina Richard Work Phone: Start: 07-26-2021 Screening mammography D debora Richard Work Phone: Start: 06-15-2021 CT angiography of head Dr. Kristina Richard Work Phone: Start: 06-15-2021 CT of head without contrast Dr. Kristina Richard Work Phone: Appendectomy Deangelo Noécandy History of Bladder Surgery R chidi Mervin End: 12-29-2014 History of Complex Repair Of Wound Scalp Deangelo Mervin History of Cranioplasty Raym noéakua Mervin Hysterectomy Deangelo Jeffries Lactoferrin measurement Dr. Kristina Richard Work Phone: Total knee replacement Rayclaudette bacon Mervin Total replacement of hip Ray cleoakua Noécandy Viral antigen assay Dr. Kristina Richard Work Phone: Plan of Treatment Date Care Activity Detail Author Start: 09-04-2023 [facility] Start: 11-06-2022 Colonoscopy w/biopsy single/multiple COLONOSCOPY AND BIOPSY [facility] Start: 11-06-2022 Patient discharge [facility] Start: 08-21-2021 Colonoscopy w/biopsy single/multiple COLONOSCOPY AND BIOPSY [facility] Work Phone: Start: 08-21-2021 Colsc flx w/rmvl of tumor polyp lesion snare tq COLONOSCOPY W/LESION REMOVAL [facility] Work Phone: Start: 08-21-2021 Egd transoral biopsy single/multiple EGD BIOPSY SINGLE/MULTIPLE [facility] Work Phone: Start: 08-21-2021 Egd transoral contro l bleeding any method EGD CONTROL BLEEDING ANY [facility] Work Phone: Start: 08-21-2021 Patient discharge [facility] Work Phone: [facility] [facility] Lactoferrin [Presenc e] in Stool by Immunoassay [facility] Patient Education [facility] Work Phone: Patient referral [facility] Work Phone: Protein measurement [facility] Payers Date Payer Category Payer Self-pay [id number] 2023 Medicare [id number] 2021 Private Health Insurance [id number] Unknown [id number] 2.16.8 [id number] Unknown [id number] 2.16.8 40.1.446212.3.579.2.462 Unknown [id number] 2.16.8 40.1.296078.3.579.2.462 Unknown [id number] 2.16.8 40.1.058386.3.579.2.462 Unknown [id number] 2.16.8 40.1.920299.3.579.2.462 Unknown [id number] 2.16.8 40.1.708497.3.579.2.462 Unknown [id number] 2.16.8 40.1.391656.3.579.2.462 Unknown [id number] 2.16.8 40.1.890388.3.579.2.462 Unknown [id number] 2.16.8 40.1.834904.3.579.2.462 Unknown [id number] 2.16.8 40.1.632953.3.579.2.462 Unknown [id number] 2.16.8 40.1.013468.3.579.2.462 Unknown [id number] 2.16.8 40.1.170285.3.579.2.462 Unknown [id number] 2.16.8 40.1.139648.3.579.2.462 Unknown [id number] 2.16.8 40.1.987953.3.579.2.462 Unknown [id number] 2.16.8 40.1.731913.3.579.2.462 Unknown [id number] 2.16.8 40.1.868249.3.579.2.462 Unknown [id number] 2.16.8 40.1.416662.3.579.2.462 Unknown [id number] 2.16.8 40.1.613926.3.579.2.462 Social History Date Type Detail Facility Assertion Tobacco smoking consumption unknown (finding) [facility] Work Phone: Start: 07-30-2021 End: 09-03-2023 Tobacco smoking status NHIS Unknown if ever smoked [facility] Start: 07-12-2021 None [facility] Start: 07-12-2021 Alone [facility] Start: 07-12-2021 Non-smoker [facility] Start: 1945 Sex Assigned At Female W [facility] Start: 09-03-2023 End: 12-17-2024 Tobacco smoking status NHIS Never smoked tobacco (finding) [facility] Start: 07-20-2024 End: 08-18-2024 Sex Female (finding) [facility] Goals Date Patient Goal Desired Activity /State Functional Status Date Assessment Result Facility NEGATED: Highlighted row Functional performance Functional status health issues are not documented Disease [facility] Work Phone: Mental Status Date Assessment Result Facility 09-03-2023 Cognitive function Level Of Cons ciousness Awake [facility] Work Phone: 08-21-2021 Cognitive function Level Of Cons ciousness Awake;Drowsy [facility] Work Phone: 08-21-2021 Cognitive function Voice/Name [facility] Work Phone: NEGATED: Highlighted row Cognitive function [Interpretation] Cognitive status health issues are not documented Disease [facility] Work Phone: Clinical Notes 11-06-2022 to 10-27-2024 Note Date & Type Note Facility 10-27-2024 Radiology Diagnostic study note [facility] Imaging Services [address], [place] [address] Soft Tissue Neck W/WO Contrast MR#: [id number] Acct: [id number] Name: ANNE DUARTE GENA Rep #: [id number] : 1945 F 78 From: Kole Felipe MD PCP: Dr. Shannan Pressley MD Status: REG CL I Study:Soft Tissue Neck W/WO Contrast Date of Exam: 10/27/24 Exam# [id number] Ordering Dr: Awa Mckeon MD PROCEDURE: SOFT TISSUE NECK W/WO CONTRAST 10/27/2024 REASON FOR EXAM: RIGHT NECK MASS TECHNIQUE: SOFT TISSUE NECK W/WO CONTRAST CONTRAST: 100 cc Isovue 370 One or more dose reduction techniques were used (e.g., Automated exposure control, adjustment of the mA and/or kV according to patient size, use of iterative reconstruction technique). FINDINGS: There is a irregular goiter involving the right lobe of the thyroid gland which extends just above the level of the sternal notch and displaces the trachea slightly to the left side. Superior extent is just atthe level of the hyoid bone. In the axial plane this measures 6.3 x 4.6 cm and in the craniocaudal direction, this measures approximately 7.3 cm. Symmetric orbits. Normal nasopharynx and parotid glands. Normal oral cavity and tongue base. CT/Soft Tissue Neck W/WO Contrast IMPRESSION: Right-sided thyroid goiter measured above. Negative for adenopathy. Reading [facility] CC: Dr. Shannan Pressley MD; Dr. Davie Mckeon MD ~ [employer] Control: Signed [facility] 09-30-2024 Evaluation note Diagnosis Onset Date Resolution Thyroid nodule acute September 30, 2024 1:27pm [facility] Work Phone: 1(346) 369-402705-22-2025 Evaluation note* Diagnosis Onset Date Resolution Status Admit Date Thyroid nodule acute September 30, 2024 1:27pm Goiter acute November 08 8:14am Thyroid nodule acute November 08, 2024 8:14am [facility] Work Phone: 1(140) 664-488705-22-2025 Evaluation note* Diagnosis Onset Date Resolution Status Admit Date Thyroid nodule acute September 30, 2024 1:27pm Goiter acute November 08 8:14am Thyroid nodule acute November 08, 2024 8:14am Thyroid nodule acute December 07, 2024 1:12pm [facility] Work Phone: 1(136) 382-739005-22-2025 Evaluation note* Diagnosis Onset Date Resolution Status Admit Date Thyroid nodule acute September 30, 2024 1:27pm Goiter acute November 08 8:14am Thyroid nodule acute November 08, 2024 8:14am Thyroid nodule acute December 07, 2024 1:12pm Abnormal gait acute December 10:20am Mild cognitive impairment acute December 27, 2024 10:20am Polyneuropathy acute December 10:20am Cerebrovascular disease chronic A ug2024 10:20am History of ruptured cerebral aneurysm resolved December 27 10:20am [facility] Work Phone: 1(562) 850-798305-22-2025 Evaluation note* Diagnosis Onset Date Resolution Status Admit Date Thyroid nodule acute September 30, 2024 1:27pm Goiter acute November 08 8:14am Thyroid nodule acute November 08, 2024 8:14am Thyroid nodule acute December 07, 2024 1:12pm Fatigue acute December 27, 10:20am Mild cognitive impairment acute December 27, 2024 10:20am History of ruptured cerebral aneurysm resolved December 27 10:20am [facility] Work Phone: 1(121) 531-331302-20-2025 Evaluation note* Diagnosis Onset Date Resolution Status Admit Date Abnormal gait acute July 012024 9:01am Mild cognitive impairment acute July 01, 2024 9:01am Polyneuropathy acute June 132024 9:01am Cerebrovascular disease chronic F 2024 9:01am History of ruptured cerebral aneurysm resolved July 01, 025 9:01am [facility] Work Phone: 1(721) 247-173402-20-2025 Evaluation note* Diagnosis Onset Date Resolution Status Admit Date Abnormal gait acute July 012024 9:01am Mild cognitive impairment acute July 01, 2024 9:01am Polyneuropathy acute June 132024 9:01am Cerebrovascular disease chronic F 2024 9:01am History of ruptured cerebral aneurysm resolved July 01 025 9:01am Thyroid nodule acute September 30, 2024 1:27pm [facility] Work Phone: 1(265) 996-554512-09-2024 Evaluation note* Diagnosis Onset Date Resolution Status Admit Date Elevated CEA chronic April 2:39pm Ulcerative colitis chronic Decemb er 2023 2:39pm Abnormal gait acute July 012024 9:01am Mild cognitive impairment acute July 01, 2024 9:01am Polyneuropathy acute June 132024 9:01am Cerebrovascular disease chronic 2024 9:01am History of ruptured cerebral aneurysm resolved July 01 025 9:01am [facility] Work Phone: 1(825) 210-724404-25-2024 Discharge summary Author Bryan Blackmon [facility] September 04, 2023 2:05am Note Date/Time September 03, 2023 11: 18pm [facility] Medical Records Department [address] [place] [address] Emergency Department Summary 09/03/23 MR#: [id number] Acct: [id number] Name: ANNE DUARTE GENA Rep #:[id number] : 1945 77 From: Bryan Blackmon DO PCP: Dr. Kristina Richard MD Status:REG ER Location: ED HPI History of Present Illness Chief Complaint: Headache Informant: patient, family and EMS Narrative Narrative: Patient is a 77-year-old female with past medical history of rheumatoid arthritis currently on methotrexate as well as history of brain aneurysm requiring coiling/clips. She states that she awoke this morning and noticed a mild frontal headache. She states she was able to go about her day and the headache seemed to improve slightly but not go away. She states roughly 2 hoursprior to arrival she had spontaneous worsening of the headache. She states it is sharp in nature and located along the frontal/parietal portion of the scalp. She does state that she has had a few days of mild congestion and drainage and cough. However she denies any fevers or chills. She denies any recent trauma and she states she does not take any type of blood thinner not even an aspirin nor does she have a history of bleeding disorder. However with her previous history of aneurysm requiring coiling and her worsening headache she was broughtin for evaluation. [facility] Medical History Arthritis Back pain Brain aneurysm Gastric reflux GERD (gastroesophageal reflux disease) History of pain when walking History of rheumatic fever Leg cramps Migraine headache Non-smoker Post-menopausal Rash Rectal bleeding Restless legs Rheumatoid arthritis Shortness of breath on exertion Wears glasses Home Medications Omeprazole [Prilosec] 40 mg PO DAILY 10/21/14 [History Last Taken Unknown] cranberry concentrate-ascorbic acid 6,000 mg-100 mg capsule 15,000 cap PO DAILY 10/21/14 [History Last Taken Unknown] folic acid 1 mg tablet 2 mg PO DAILY@0800 10/21/14 [History Last Taken Unknown] Potassium 1 tab PO PRN PRN LOW K+ 07/27/21 [History Last Taken Unknown] cholecalciferol (vitamin D3) 25 mcg (1,000 unit) capsule 25 mcg PO DAILY 07/27/21 [History Last Taken Unknown] conjugated estrogens 0.625 mg/gram vaginal cream (Premarin) 1.25 mg vaginal QWEEK 07/27/21 [History Last Taken Unknown] methotrexate sodium 2.5 mg tablet See Rx Instructions .Route .COMPLEX 07/27/21 [History Last Taken Unknown] nortriptyline 25 mg capsule 25 mg PO QHS 07/27/21 [History Last Taken Unknown] tramadol 100 mg capsule 24h,extended release(25-75) (ConZip) 50 mg PO .QID PRN Pain 07/27/21 [History Last Taken Unknown] zinc 50 mg tablet 50 mg PO QODAY 07/27/21 [History Last Taken Unknown] calcium carbonate (Calcium 600) 1,200 mg PO DAILY 08/20/21 [History Last Taken Unknown] latanoprost 0.005 % eye drops 1 drp EACH EYE QHS 08/20/21 [History Last Taken Unknown] loratadine 10 mg tablet 10 mg PO DAILY 08/20/21 [History Last Taken Unknown] Lactobacillus acidophilus and rhamnosus 15 billion cell capsule (Probiotic) 1 cap PO DAILY 10/31/22 [History Last Taken Unknown] balsalazide 750 mg capsule See Rx Instructions .Route .COMPLEX #180 caps 11/18/22 [Rx Last Taken Unknown] Allergy/AdvReac Type Severity Reaction Status Date / Time aspirin Allergy Unknown Verified 09/03/23 22:08 codeine Allergy Unknown Verified 09/03/23 22:08 Sulfa (Sulfonamide Allergy Unknown Verified 09/03/23 22:08 Antibiotics) Family History Father Cancer bladder Mother Heart disease Surgical History Hx of appendectomy Hx of arthroscopic knee surgery Hx of arthroscopy of shoulder Hx of bladder repair surgery Hx of brain surgery Hx of breast biopsy Hx of hysterectomy Hx of total hip arthroplasty Social History Smoking Status: Never smoker alcohol intake: never substance use type: does not use what type of physical activity do you participate in: none ROS ROS ED Constitutional Constitutional ED: Denies chills or fever(s) Eyes Eyes: Denies blurry vision or change in vision ENT ENT ED: Reports rhinorrhea and sore throat; Denies ear pain Cardiovascular Cardiovascular: Denies chest pain Respiratory/Chest Respiratory/Chest: Reports cough; Denies dyspnea Gastrointestinal Gastrointestinal: Reports nausea; Denies abdominal pain, diarrhea or vomiting Genitourinary Genitourinary ED: Denies dysuria Musculoskeletal Musculoskeletal: Denies myalgias or neck pain Integumentary Denies rash Neurologic Neurologic: Reports headache(s); Denies paresthesias or weakness Hematologic/Lymphatic Hematologic/Lymphatic: Denies easy bleeding or easy bruising EXAM Physical Exam Const Vital Signs: 09/03/23 22:04 09/03/23 22:55 09/03/23 23:05 Temperature 98.7 F Temperature Source Oral Pulse Rate 95 Respiratory Rate 19 H Blood Pressure 176/96 H Blood Pressure Mean 122 Pulse Ox 95 88 95 Oxygen Delivery Method Room Air Room Air Nasal Cannula Oxygen Flow Rate (L/min) 4 09/03/23 22:30 09/03/23 22:53 09/03/23 23:00 Temperature Temperature Source Pulse Rate 90 76 Respiratory Rate 23 H 13 Blood Pressure 169/102 H 168/99 H 138/92 H Blood Pressure Mean 123 118 108 Pulse Ox 94 91 Oxygen Delivery Method Oxygen Flow Rate (L/min) 09/03/23 23:15 09/04/23 00:00 09/04/23 02:00 Temperature 97.2 F L Temperature Source Temporal Pulse Rate 76 80 88 Respiratory Rate 12 16 16 Blood Pressure 160/88 H 164/92 H 169/91 H Blood Pressure Mean 108 116 117 Pulse Ox 95 99 94 Oxygen Delivery Method Room Air Oxygen Flow Rate (L/min) Positive well nourished and well developed General Appearance ED: well developed; Negative for pallor HEENT HEENT Narrative: Normocephalic atraumatic Eyes PERRL and EOMs intact bilaterally General Eye ED: Negative for scleral icterus Neck supple Neck Narrative: No nuchal rigidity or meningeal signs Resp normal respiratory effort and clear to auscultation bilaterally Cardio regular rate and regular rhythm Rate: other Other Details: Heart is regular rate and rhythm without murmurs rubsor gallops Radial and carotid pulses equal and symmetric GI normal to inspection, nondistended, normoactive bowel sounds, non-tender, non-distended and no masses GI Narrative: No voluntary guarding or rigidity or pulsatile mass Auscultation: normoactive bowel sounds Palpation: soft Extremity normal to inspection Neuro oriented x3, CN's II-XII intact bilaterally and no sensory deficits noted Neuro Narrative: Cranial nerves II through XII are grossly intact there are no focal neurologic deficits The patient does have the inability to raise the right side of her forehead which is chronic in nature secondary to her previous aneurysm. No pronator drift no dysmetria no truncal ataxia NIH stroke scale score of 0 Sensorium / Orientation: alert Motor Exam: strength 5/5 throughout Psych mental status grossly normal Skin no rashes or lesions noted and no wounds General Skin Exam: Negative for jaundice or pallor MDM MDM MDM Narrative Medical decision making narrative: Patient arrived to the ER hypertensive but otherwise with stable vitals. She reported a headache that was present upon wakening and never completely resolvedthroughout the day. However the headache reportedly worsened quickly roughly 2 hours prior to arrival. Differential diagnosis is for spontaneous brain bleed such as subarachnoid hemorrhage versus infective headache such as RSV versus COVID versus influenza. There is concern for potential meningitis leading to the headache as well. Basic blood work was obtained and the patient had a noncontrast CT ordered upon arrival secondary to concern for brain bleed. Head CT was negative for acute findings and laboratory studies revealed no clinicallysignificant changes other than her viral swab being positive for RSV. The patient had a CTA obtained in order to ensure that there was no signs of ischemia or secondary issue such as cavernous sinus vein thrombosis based on herheadache and viral symptoms. CTA was also normal. On reevaluation she is awakeand alert with normal neurologic exam. As we have a reason for her headache with her viral infection of RSV and she does not have signs of acute bleed I do not feel there is need to keep her in the hospital. Plan of care was discussed with patient and family and they are agreeable to it and therefore she will be discharged at this time History & Record Review Discussion w/independent historian: Patient and Family Lab Data Attestation: I reviewed the patient's lab results. Labs: Laboratory Results - last 24 hr 09/03/23 22:07 WBC 3.6 L RBC 4.60 Hgb 13.5 Hct 43.3 MCV 94.1 MCH 29.3 MCHC 31.2 L RDW Std Deviation 52.5 H RDW Coeff of Gui 15.3 H Plt Count 240 MPV 10.4 Immature Gran % (Auto) 0.300 Neut % (Auto) 73.9 H Lymph % (Auto) 15.9 L [place] % (Auto) 9.1 Eos % (Auto) 0.3 Baso % (Auto) 0.5 Absolute Neuts (auto) 2.7 Absolute Lymphs (auto) 0.58 L Nucleated RBC % 0 Differential Comment SEE COMMENT Platelet Estimate ADEQUATE RBC Morphology N CHROM Anisocytosis RARE Macrocytosis RARE PT 14.7 INR 1.2 APTT 34.2 Sodium 135 L Potassium 3.8 Chloride 101 Carbon Dioxide 29.0 Anion Gap 5 BUN 9 Creatinine 0.51 L Estim Creat Clear Calc 62.77 Est GFR (MDRD) Af Amer 152 Est GFR (MDRD) Non-Af 125 BUN/Creatinine Ratio 17.8 Glucose 109 H Calcium 8.5 Radiography Diagnostic Testing: Clinical Impression(s) from Imaging Studies Brain CT 09/03/23 22:43 IMPRESSION: Chronic involutional and postoperative changes of the brain. Electronically Signed: Alex Virgen MD at 23:37 EDT , Chest X-Ray 09/04/23 00:01 IMPRESSION: No acute pulmonary finding. Electronically Signed: Kenton Rhoades MD at 1:02 EDT , Head CTA 09/04/23 23:59 IMPRESSION: Negative CTA Brain with and without contrast. Electronically Signed: Kenton Rhoades MD at 1:19 EDT , Chest x-ray as interpreted by the emergency medicine physician reveals no acute infiltrate pneumothorax or pleural effusion Discharge Plan Triage Chief Complaint: Headache ED Provider: Bryan Blackmon Dx/Rx/DC Orders Clinical Impression: Cephalgia, RSV infection, Rheumatoid arthritis Instructions: RSV (Respiratory Syncytial Virus), ED Headache Unspecified Prescriptions: No Action zinc 50 mg tablet 50 mg PO QODAY Premarin 0.625 mg/gram cream 1.25 mg vaginal QWEEK Rx Instructions: off 5 days; repeat cycle cholecalciferol (vitamin D3) 25 mcg (1,000 unit) capsule 25 mcg PO DAILY nortriptyline 25 mg capsule 25 mg PO QHS Potassium 99 mg tablet 1 tab PO PRN PRN (Reason: LOW K+) balsalazide 750 mg capsule See Rx Instructions .ROUTE .COMPLEX Qty: 180 3RF Dose Instruction: TAKE 1 CAPSULE TWICE DAILY Rx Instructions: TAKE 1 CAPSULE TWICE DAILY folic acid 1 MG tablet 2 mg PO DAILY@0800 cranberry conc-ascorbic acid 1 EACH capsule 15,000 cap PO DAILY Omeprazole [Prilosec] 40 MG capsule 40 mg PO DAILY tramadol [ConZip] 100 mg capsule,ER biphase 24 hr 25-75 50 mg PO .QID PRN (Reason: Pain) methotrexate sodium 2.5 mg tablet See Rx Instructions .ROUTE .COMPLEX Rx Instructions: 6 tabs PO QWEEK-TAKES ON FRIDAY latanoprost 0.005 % drops 1 drp EACH EYE QHS calcium carbonate [Calcium 600] 600 mg calcium (1,500 mg) Tablet 1,200 mg PO DAILY loratadine 10 mg Tablet 10 mg PO DAILY Probiotic 15 billion cell Capsule 1 cap PO DAILY Primary Care Provider: Kristina Richard Referrals: Kristina Richard MD [Primary Care Provider] - Activity Restrictions/Additional Instructions: Your workup today showed no signs of acute brain bleed or lack of blood flow andyou did test positive for RSV which is most likely the cause of your symptoms. This is a virus which will need to run its course. Continue all of your home medications as directed by your doctor continue with Tylenol and/or Motrin for headache and fever control and return to the ER should you have any further concerns Disposition Disposition: Home, Self Care What to do if you have Problems For any increased pain, shortness of breath, bleeding, nausea or vomiting, chestpain, or any unexpected problems, contact your Primary Care Provider. Call [facility] ([phone]) or report to the closest Emergency Room. Call 911 if necessary. 09/04/23 0205 <Electronically signed by Bryan Blackmon DO> Cosigner Signature (if applicable): CC: Dr. Kristina Richard MD ~ Signed [facility] Work Phone: 1(585) 423-691606-28-2023 History and physical note Author Stephen Friend [facility] November 06, 2022 7:24am Note Date/Time November 06, 2022 7:24 am [facility] Medical Records Department [address] [place] [address] History & Physical Exam 11/06/22723 MR#: [id number] Acct: [id number] Name: ANNE DUARTE GENA Rep #:[id number] : 1945 76 From: Stephen Carrizales DO PCP: Dr. Kristina Richard MD Status:PRE [facility] [place] Location: EN History and Physical Date of Admission: 11/06/22 ANNE DUARTE, is a 76 F who presents to the office today for 7 month f/u ulcerative colitis. At her last visit she was doing very well on balsalazide. 12/2021 labs: esr 11, crp 9, positive fecal lactoferrin, normal stool calprotectin, CEA 6.1 (0- 4.7) which was improved from 7.1--this was ok as long as symptoms controlled with medication for UC per Dr Carrizales. She is due for repeat colonoscopy Spring 2022. Today she reports she is doing very well--no abdpain, diarrhea, rectal bleeding, mucus per rectum on balsalazide. Bowels are regular, formed. GERD is well controlled with PPI therapy. If she takes 2nd doseof balsalazide too late in the day then she has insomnia; so she takes 1 dose inthe morning and the other in the early afternoon and has no trouble sleeping. Good appetite weight is stable. Nonsmoker. She established with this office on 07/30/21 with a recent onset of bright red blood per rectum with clots, mucus per rectum with intermittent fecal seepage, lower abdominal pain prior to BM.? She briefly had diarrhea but that resolved spontaneously.? Her stool was Hemoccult positive at primary care office.? We gotCT abd pel which was suspicious for a rectal mass. So we got tumor markers LDH 192 nl, CEA 7.1 high, CA 125 17.4 nl. Biopsies showed chronic active colitis in the rectum and sigmoid colon. She started balsalazide mid August 2021. ROS Const Constitutional: Positive for headache(s); No fatigue ENT ENT: Positive for headache(s); No difficulty swallowing Gastro GI: Positive for heartburn; No abdominal pain, belching, bloating, change in bowel habits, change in stool character, coffee ground emesis, constipation, cramping, diarrhea, difficulty swallowing, feeling full early, excessive flatus, incontinent of stools, Vomiting blood/hematemesis, Blood in stool, loose stools, Black,tarry stools, nausea/dyspepsia, pain with swallowing, vomiting or other Musc Musculoskeletal: Positive for joint pain, back pain, Arthritis and restless legs Skin Skin: No yellowing of the eye or itchy eyes Neuro Neurology: Positive for headache(s) and restless legs Psych Psychiatric: No anxiety and No depression Endo Endocrine: No fatigue Aller/Imm Allergy/Immunologic: No itchy eyes Vance/Lymp Hematologic/Lymphatic: No easy bleeding or easy bruising Exam Const General: cooperative and comfortable Orientation: alert, awake and oriented x3 Quality Reporting Tobacco Screening ([facility] 138) Smoking Status: Never smoker Assessment and Plan Assessment and Plan (1) Ulcerative colitis: Status: Chronic Plan: 76 yr old female with UC on balsalazide bid. She is asymptomatic. Will update CEA. She is due for repeat colonoscopy, f/u 2 wks later in office to discuss results. (2) Elevated CEA: Status: Chronic Plan: as above Orders: Orders Carcinoembryonic Antigen Today R97.0 - Elevated carcinoembryonic antigen [CEA] CRP Today R97.0 - Elevated carcinoembryonic antigen [CEA] Erythrocyte Sed Rate Today R97.0 - Elevated carcinoembryonic antigen [CEA] I have examined the patient and the H&P has been reviewed. There are no clinical changes since date of exam. 11/06/22723 <Electronically signed by Stephen Carrizales DO> Cosigner Signature (if applicable): CC: Dr. Kristina Richard MD; Stephen Carrizales DO~ Signed [facility] Work Phone: 1(445) 580-960006-28-2023 Procedure [facility] 11-06-2022 Procedure [facility]06-28-2023 Procedure note [facility]06-28-2023 Procedure [facility] Evaluation note* Diagnosis Onset Date Resolution Status Abdominal pain acute Rectal bleed acute [facility] Work Phone: Evaluation note* Diagnosis Onset Date Resolution Status Abdominal pain acute Rectal bleed acute Ulcerative colitis acute [facility] Work Phone: Evaluation note* Diagnosis Onset Date Resolution Status Ulcerative colitis acute Elevated CEA acute Ulcerative colitis acute [facility] Work Phone: Evaluation note* Diagnosis Onset Date Resolution Status Elevated CEA acute Ulcerative colitis acute [facility] [facility] Work Phone: Evaluation noteNo assessment information available [facility] Work Phone: Evaluation note* Diagnosis Onset Date Resolution Status Elevated CEA chronic Ulcerative colitis chronic [facility] Work Phone: History and physical note Author Stephen Carrizales [facility] November 06, 2022 7:24am Note Date/Time November 06, 2022 7:24 am [facility] Medical Records Department [address] [place] [address] History & Physical Exam 11/06/22723 MR#: [id number] Acct: [id number] Name: ANNE DUARTE GENA Rep #:[id number] : 1945 76 From: Stephen Carrizales DO PCP: Dr. Kristina Richard MD Status:PRE [facility] [place] Location: [place] History and Physical Date of Admission: 11/06/22 ANNE DUARTE, is a 76 F who presents to the office today for 7 month f/u ulcerative colitis. At her last visit she was doing very well on balsalazide. 12/2021 labs: esr 11, crp 9, positive fecal lactoferrin, normal stool calprotectin, CEA 6.1 (0- 4.7) which was improved from 7.1--this was ok as long as symptoms controlled with medication for UC per Dr Carrizales. She is due for repeat colonoscopy Spring 2022. Today she reports she is doing very well--no abdpain, diarrhea, rectal bleeding, mucus per rectum on balsalazide. Bowels are regular, formed. GERD is well controlled with PPI therapy. If she takes 2nd doseof balsalazide too late in the day then she has insomnia; so she takes 1 dose inthe morning and the other in the early afternoon and has no trouble sleeping. Good appetite weight is stable. Nonsmoker. She established with this office on 07/30/21 with a recent onset of bright red blood per rectum with clots, mucus per rectum with intermittent fecal seepage, lower abdominal pain prior to BM.? She briefly had diarrhea but that resolved spontaneously.? Her stool was Hemoccult positive at primary care office.? We gotCT abd pel which was suspicious for a rectal mass. So we got tumor markers LDH 192 nl, CEA 7.1 high, CA 125 17.4 nl. Biopsies showed chronic active colitis in the rectum and sigmoid colon. She started balsalazide mid August 2021. ROS Const Constitutional: Positive for headache(s); No fatigue ENT ENT: Positive for headache(s); No difficulty swallowing Gastro GI: Positive for heartburn; No abdominal pain, belching, bloating, change in bowel habits, change in stool character, coffee ground emesis, constipation, cramping, diarrhea, difficulty swallowing, feeling full early, excessive flatus, incontinent of stools, Vomiting blood/hematemesis, Blood in stool, loose stools, Black,tarry stools, nausea/dyspepsia, pain with swallowing, vomiting or other Musc Musculoskeletal: Positive for joint pain, back pain, Arthritis and restless legs Skin Skin: No yellowing of the eye or itchy eyes Neuro Neurology: Positive for headache(s) and restless legs Psych Psychiatric: No anxiety and No depression Endo Endocrine: No fatigue Aller/Imm Allergy/Immunologic: No itchy eyes Vance/Lymp Hematologic/Lymphatic: No easy bleeding or easy bruising Exam Const General: cooperative and comfortable Orientation: alert, awake and oriented x3 Quality Reporting Tobacco Screening ([facility] 138) Smoking Status: Never smoker Assessment and Plan Assessment and Plan (1) Ulcerative colitis: Status: Chronic Plan: 76 yr old female with UC on balsalazide bid. She is asymptomatic. Will update CEA. She is due for repeat colonoscopy, f/u 2 wks later in office to discuss results. (2) Elevated CEA: Status: Chronic Plan: as above Orders: Orders Carcinoembryonic Antigen Today R97.0 - Elevated carcinoembryonic antigen [CEA] CRP Today R97.0 - Elevated carcinoembryonic antigen [CEA] Erythrocyte Sed Rate Today R97.0 - Elevated carcinoembryonic antigen [CEA] I have examined the patient and the H&P has been reviewed. There are no clinical changes since date of exam. 11/06/22723 <Electronically signed by Stephen Carrizales DO> Cosigner Signature (if applicable): CC: Dr. Kristina Richard MD; Stephen Carrizales DO~ Signed [facility] Work Phone: Hospital Discharge instructions Additional Instructions Your workup today showed no signs of acute brain bleed or lack of blood flow and you did test positive for RSV which is most likely the cause of your symptoms. This is a virus which will need to run its course. Continue all of your home medications as directed by your doctor continue with Tylenol and/or Motrin for headache and fever control and return to the ER should you have any [facility] Work Phone: Reason for referral (narrative)No reason for referral information availableWOhio[facility] Work Phone: Summary Purpose Family History No Family History Records Found Relationship Condition Age at Onset Recorded Date/T catalina father Malignant neoplasm Unknown mother Cardiac disease Unknown Advance Directives No Advanced Directives Records Found Advance Directive Response Recorded Date/ Time Living Will No July 12, 2021 3:09pm Power of Boiler House Operator No July 12 3:09pm Advance Directive Response Recorded Date/ Time Living Will No August 20, 2021 9:26am Power of Boiler House Operator No August 20 9:26am Advance Directive Response Recorded Date/ Time Living Will No November 19, 2021 4:55pm Power of Boiler House Operator No November 19 2 4:55pm Advance Directive Response Recorded Date/ Time Living Will No November 19, 2021 3:55pm Power of Boiler House Operator No November 19 2 3:55pm Advance Directive Response Recorded Date/ Time Living Will No October 31, 2022 1:07pm Power of Boiler House Operator No October 31 3 1:07pm Advance Directive Response Recorded Date/ Time Name of Medical Power of Boiler House Operator Sophia vidal September 03, 2023 10:59pm Living Will No September 03, 2023 10:59pm Power of Boiler House Operator Yes September 02 10:59pm Advance Directive Response Recorded Date/ Time Living Will No October 31, 2022 1:07pm Do you have a Healthcare Power of Boiler House Operator? No October 31, 2022 1:07pm Chief Complaint and Reason for Visit Chief Complaint SEE ORDER VISUIAL LOSS STANDING ORDER ARTHRITIS/PAIN - COPY PCP SCREENING HEMORRHOIDS RECTAL BLEEDING Reason for Visit Abdominal pain Rectal bleed Chief Complaint SEE ORDER VISUIAL LOSS STANDING ORDER ARTHRITIS/PAIN - COPY PCP SCREENING HEMORRHOIDS RECTAL BLEEDING 2 WK FU E-ORDER Reason for Visit Abdominal pain Rectal bleed Ulcerative colitis Chief Complaint STANDING ORDER ARTHRITIS/PAIN - COPY PCP SCREENING HEMORRHOIDS RECTAL BLEEDING 2 WK FU E-ORDER Reason for Visit Abdominal pain Rectal bleed Ulcerative colitis Chief Complaint ARTHRITIS/PAIN - [employer] PCP SCREENING HEMORRHOIDS RECTAL BLEEDING 2 WK FU E-ORDER FALL Reason for Visit Abdominal pain Rectal bleed Ulcerative colitis Chief Complaint 2 WK FU E-ORDER FALL 3 MO FU E ORDERS INT LABSPEC Reason for Visit Ulcerative colitis Elevated CEA Ulcerative colitis Chief Complaint 3 MO FU E ORDERS INT LABSPEC STANDING ORDER Reason for Visit Elevated CEA Ulcerative colitis Chief Complaint STANDING ORDER S/O- COPY PCP Chief Complaint STANDING ORDER S/O- COPY PCP 6 MO FU Reason for Visit Elevated CEA Ulcerative colitis Chief Complaint S/O- COPY PCP 6 MO FU STANDING ORDER Reason for Visit Elevated CEA Ulcerative colitis Chief Complaint S/O- COPY PCP 6 MO FU STANDING ORDER SCREENING Reason for Visit Elevated CEA Ulcerative colitis Chief Complaint 6 MO FU STANDING ORDER SCREENING Reason for Visit Elevated CEA Ulcerative colitis Chief Complaint STANDING ORDER SCREENING 2 WK FU S/O- PAIN- COPY PCP Reason for Visit Elevated CEA Ulcerative colitis Chief Complaint 2 WK FU S/O- PAIN- COPY PCP PAIN- COPY PCP Reason for Visit Elevated CEA Ulcerative colitis Chief Complaint STANDING ORDER STANDING ORDER Chief Complaint STANDING ORDER STANDING ORDER headache Chief Complaint Admit Date 5 MO FU April 19, 2024 2 :39pm STANDING ORDER - COPY PCP May 13 025 10:06am CEREBRAL ANEURYSM RUPTURE July 01, 2024 9:01am EORDERS July 06, 2024 8:44am Reason for Visit Admit Date Elevated CEA April 19, 2024 2 :39pm Ulcerative colitis April 19, 2024 2 :39pm Abnormal gait July 01, 2024 9:01am Mild cognitive impairment July 01, 2024 9:01am Polyneuropathy July 01, 2024 9:01am Cerebrovascular disease July 01 025 9:01am History of ruptured cerebral aneurysm Fe bru2024 9:01am Chief Complaint Admit Date STANDING ORDER - COPY PCP May 13 025 10:06am CEREBRAL ANEURYSM RUPTURE July 01, 2024 9:01am EORDERS July 06, 2024 8:44am Reason for Visit Admit Date Abnormal gait July 01, 2024 9:01am Mild cognitive impairment July 01, 2024 9:01am Polyneuropathy July 01, 2024 9:01am Cerebrovascular disease July 01 025 9:01am History of ruptured cerebral aneurysm Fe bruary 2024 9:01am Chief Complaint Admit Date CEREBRAL ANEURYSM RUPTURE July 01, 2024 9:01am EORDERS July 06, 2024 8:44am PULSITILE MASS RIGHT BASE OF THE NECK Ap ril 2024 1:55pm THYROID MASS - BIOPSY September 30, 2024 1:2 7pm R THYROID MASS September 30, 2024 3:16p m Reason for Visit Admit Date Abnormal gait July 01, 2024 9:01am Mild cognitive impairment July 01, 2024 9:01am Polyneuropathy July 01, 2024 9:01am Cerebrovascular disease July 01 025 9:01am History of ruptured cerebral aneurysm Fe bruary 2024 9:01am Thyroid nodule September 30, 2024 1:27p m Chief Complaint Admit Date PULSITILE MASS RIGHT BASE OF THE NECK Ap ril 2024 1:55pm THYROID MASS - BIOPSY September 30, 2024 1:2 7pm R THYROID MASS September 30, 2024 3:16p m right neck mass October 27, 2024 3:38 pm Reason for Visit Admit Date Thyroid nodule September 30, 2024 1:27p m Chief Complaint Admit Date PULSITILE MASS RIGHT BASE OF THE NECK Ap ril 2024 1:55pm THYROID MASS - BIOPSY September 30, 2024 1:2 7pm R THYROID MASS September 30, 2024 3:16p m right neck mass October 27, 2024 3:[address] & DISCUSS SX November 08, 2024 8 :14am Chief Complaint Admit Date PULSITILE MASS RIGHT BASE OF THE NECK Ap ril 2024 1:55pm THYROID MASS - BIOPSY September 30, 2024 1:2 7pm R THYROID MASS September 30, 2024 3:16p m right neck mass October 27, 2024 3:[address] & DISCUSS SX November 08, 2024 8 :14am SCREENING November 17, 2024 11:52 am Reason for Visit Admit Date Thyroid nodule September 30, 2024 1:27p m Goiter November 08, 2024 8:14 am Thyroid nodule November 08, 2024 8:14 am Chief Complaint Admit Date PULSITILE MASS RIGHT BASE OF THE NECK Ap ril 2024 1:55pm THYROID MASS - BIOPSY September 30, 2024 1:2 7pm R THYROID MASS September 30, 2024 3:16p m right neck mass October 27, 2024 3:[address] & DISCUSS SX November 08, 2024 8 :14am SCREENING November 17, 2024 11:52 am THYROID FNA December 07, 2024 1:12 pm Chief Complaint Admit Date PULSITILE MASS RIGHT BASE OF THE NECK Ap ril 2024 1:55pm THYROID MASS - BIOPSY September 30, 2024 1:2 7pm R THYROID MASS September 30, 2024 3:16p m right neck mass October 27, 2024 3:[address] & DISCUSS SX November 08, 2024 8 :14am SCREENING November 17, 2024 11:52 am THYROID FNA December 07, 2024 1:12 pm L THYROID NODULE December 07, 2024 2:51 pm Reason for Visit Admit Date Thyroid nodule September 30, 2024 1:27p m Goiter November 08, 2024 8:14 am Thyroid nodule November 08, 2024 8:14 am Thyroid nodule December 07, 2024 1:12 pm Chief Complaint Admit Date PULSITILE MASS RIGHT BASE OF THE NECK Ap ril 2024 1:55pm THYROID MASS - BIOPSY September 30, 2024 1:2 7pm R THYROID MASS September 30, 2024 3:16p m right neck mass October 27, 2024 3:[address] & DISCUSS SX November 08, 2024 8 :14am SCREENING November 17, 2024 11:52 am THYROID FNA December 07, 2024 1:12 pm L THYROID NODULE December 07, 2024 2:51 pm 6 M FU December 27, 2024 10 :20am Reason for Visit Admit Date Thyroid nodule September 30, 2024 1:27p m Goiter November 08, 2024 8:14 am Thyroid nodule November 08, 2024 8:14 am Thyroid nodule December 07, 2024 1:12 pm Abnormal gait December 27, 2024 10 :20am Mild cognitive impairment December 27, 2 025 10:20am Polyneuropathy December 27, 2024 10 :20am Cerebrovascular disease December 27 10:20am History of ruptured cerebral aneurysm [place] 2024 10:20am Chief Complaint Admit Date THYROID MASS - BIOPSY September 30, 2024 1:2 7pm R THYROID MASS September 30, 2024 3:16p m right neck mass October 27, 2024 3:[address] & DISCUSS SX November 08, 2024 8 :14am SCREENING November 17, 2024 11:52 am THYROID FNA December 07, 2024 1:12 pm L THYROID NODULE December 07, 2024 2:51 pm 6 M FU December 27, 2024 10 :20am Discuss thyroid surgery/update H&P Septe mber 2024 9:20am Reason for Visit Admit Date Thyroid nodule September 30, 2024 1:27p m Goiter November 08, 2024 8:14 am Thyroid nodule November 08, 2024 8:14 am Thyroid nodule December 07, 2024 1:12 pm Fatigue December 27, 2024 10 :20am Mild cognitive impairment December 27, 2 025 10:20am History of ruptured cerebral aneurysm [place] 2024 10:20am Additional Source Comments INFORMATION SOURCE (unrecogn ized section and content) DATE CREATED AUTHOR 12/04/2017 [facility] DATE CREATED AUTHOR AUTHOR'S ORGANIZ ATION [facility] Goals (unrecognized section and content) Goals may be documented in a n alternate sectionGoals may be documented in an alternate sectionGoals may be documented in an alternate sectionGoals may be documented in an alternate sectionGoals may be documented in an alternate sectionGoals may be documented in an alternate sectionGoals may be documented in an alternate sectionGoals may be documented in an alternate sectionGoals may be documented in an alternate sectionGoals may be documented in an alternate sectionGoals may be documented in an alternate sectionGoals may be documented in an alternate sectionGoals may be documented in an alternate sectionGoals may be documented in an alternate sectionGoals may be documented in an alternate sectionGoals may be documented in an alternate sectionGoals may be documented in an alternate sectionGoals may be documented in an alternate sectionGoals may be documented in an alternate sectionGoals may be documented in an alternate sectionGoals may be documented in an alternate sectionGoals may be documented in an alternate sectionGoals may be documented in an alternate sectionGoals may be documented in an alternate sectionGoals may be documented in an alternate sectionGoals may be documented in an alternate sectionGoals may be documented in an alternate sectionGoals may be documented in an alternate section Care Teams (unrecognized sec tion and content) Team Status: Active Member Role Status Dates Dr. Kristina Richard MD Family Provider Active Dr. Kristina Richard MD Primary Care Provider Active Team Status: Inactive Member Role Status Dates Dr. Kristina Richard MD Primary Care Provider Active Dr. Sanjana Thomas MD Attending Provider Active Team Status: Inactive Member Role Status Dates Dr. Kristian Richard MD Primary Care Provider Active Dr. Sanjana Thomas MD Attending Provider, Referring Provider Active Team Status: Inactive Member Role Status Dates Dr. Kristina Richard MD Primary Care Provider, Referrin g Provider Active Nisa Frederick CURB SETTER HELPER, CURB SETTER HELPER-C Attending Provider Active Team Status: Inactive Member Role Status Dates Dr. Kristina Richard MD Primary Care Provider Active Nisa Frederick CURB SETTER HELPER, CURB SETTER HELPER-C Attending Provider, Referrin g Provider Active Team Status: Inactive Member Role Status Dates Dr. Kristina Richard MD Primary Care Prov ider, Attending Provider, Referring Provider Active Team Status: Active Member Role Status Dates Dr. Kristina Richard MD Primary Care Provider Active Dr. Stephen Carrizales DO Attending Provider Active Team Status: Inactive Member Role Status Dates Dr. Kristina Richard MD Primary Care Provider, Referrin g Provider Active Dr. Stephen Carrizales DO Attending Provider Active Team Status: Active Member Role Status Dates Dr. Kristina Richard MD Primary Care Provider Active Dr. Stephen Carrizales DO Attending Provider, Referring Provider Active Team Status: Inactive Member Role Status Dates Dr. Kristina Richard MD Primary Care Provider Active Dr. Stephen Carrizales DO Attending Provider, Referring Provider Active Team Status: Inactive Member Role Status Dates Dr. Kristina Richard MD Primary Care Provider Active Shannan Pressley MD Attending Provider Active Team Status: Inactive Member Role Status Dates Dr. Kristina Richard MD Primary Care Provider Active Dr. Bryan Blackmon DO Emergency Provider Active Team Status: Active Member Role Status Dates Dr. Kristina Richard MD Primary Care Provider Active Team Status: Inactive Member Role Status Dates Dr. Kristina Richard MD Primary Care Provider Active Start: April 19, 2024 End: April 19, 2024 Dr. Kristina Richard MD Referring Provider Active Start: April 19, 2024 End: April 19, 2024 Dr. Stephen Carrizales DO Attending Provider Active Start: April 19, 2024 End: April 19, 2024 Team Status: Inactive Member Role Status Dates Dr. Kristina Richard MD Primary Care Provider Active Start: May 13, 2024 End: May 13, 2024 Dr. Sanjana Thomas MD Attending Provider Active Start: May 13, 2024 End: May 13, 2024 Dr. Sanjana Thomas MD Referring Provider Active Start: May 13, 2024 End: May 13, 2024 Team Status: Inactive Member Role Status Dates Dr. Kristina Richard MD Primary Care Provider Active Start: July 01, 2024 End: July 01, 2024 Dr. Kristina Richard MD Referring Provider Active Start: July 01, 2024 End: July 01, 2024 Dr. Deangelo White MD Attending Provider Active Start: July 01, 2024 End: July 01, 2024 Team Status: Inactive Member Role Status Dates Dr. Kristina Richard MD Primary Care Provider Active Start: July 06, 2024 End: July 06, 2024 Dr. Deangelo White MD Attending Provider Active Start: July 06, 2024 End: July 06, 2024 Dr. Deangelo White MD Referring Provider Active Start: July 06, 2024 End: July 06, 2024 Team Status: Inactive Member Role Status Dates Dr. Kristina Richard MD Primary Care Provider Active Start: August 12, 2024 End: August 12, 2024 Dr. Sanjana Thomas MD Attending Provider Active Start: August 12, 2024 End: August 12, 2024 Dr. Sanjana Thomas MD Referring Provider Active Start: August 12, 2024 End: August 12, 2024 Team Status: Active Member Role Status Dates Shannan Pressley MD Primary Care Provider Active Team Status: Inactive Member Role Status Dates Dr. Kristina Richard MD Primary Care Provider Active Start: August 30, 2024 End: August 30, 2024 Dr. Kristina Richard MD Attending Provider Active Start: August 30, 2024 End: August 30, 2024 Dr. Kristina Richard MD Referring Provider Active Start: August 30, 2024 End: August 30, 2024 Team Status: Inactive Member Role Status Dates Dr. Kristina Richard MD Referring Provider Active Start: September 30, 2024 End: September 30, 2024 Dr. Davie Mckeon MD Attending Provider Active Start: September 30, 2024 End: September 30, 2024 Shannan Pressley MD Primary Care Provider Active St art: September 30, 2024 End: September 30, 2024 Team Status: Inactive Member Role Status Dates Shannan Pressley MD Primary Care Provider Active St art: September 30, 2024 End: September 30, 2024 Dr. Davie Mckeon MD Attending Provider Active Start: September 30, 2024 End: September 30, 2024 Dr. Davie Mckeon MD Referring Provider Active Start: September 30, 2024 End: September 30, 2024 Team Status: Active Member Role Status Dates Shannan Pressley MD Primary Care Provider Active St art: October 27, 2024 Dr. Davie Mckeon MD Attending Provider Active Start: October 27, 2024 Dr. Davie Mckeon MD Referring Provider Active Start: October 27, 2024 Team Status: Inactive Member Role Status Dates Shannan Pressley MD Primary Care Provider Active St art: November 01, 2024 End: November 01, 2024 Dr. Sanjana Thomas MD Attending Provider Active Start: November 01, 2024 End: November 01, 2024 Dr. Sanjana Thomas MD Referring Provider Active Start: November 01, 2024 End: November 01, 2024 Team Status: Active Member Role/Relationship Status Dates Shannan Pressley MD Primary Care Provider Active Team Status: Inactive Member Role/Relationship Status Dates Dr. Kristina Richard MD Primary Care Provider Active Start: August 12, 2024 End: August 12, 2024 Dr. Sanjana Thomas MD Attending Provider Active Start: August 12, 2024 End: August 12, 2024 Dr. Sanjana Thomas MD Referring Provider Active Start: August 12, 2024 End: August 12, 2024 Team Status: Inactive Member Role/Relationship Status Dates Dr. Kristina Richard MD Primary Care Provider Active Start: August 30, 2024 End: August 30, 2024 Dr. Kristina Richard MD Attending Provider Active Start: August 30, 2024 End: August 30, 2024 Dr. Kristina Richard MD Referring Provider Active Start: August 30, 2024 End: August 30, 2024 Team Status: Inactive Member Role/Relationship Status Dates Dr. Kristina Richard MD Referring Provider Active Start: September 30, 2024 End: September 30, 2024 Dr. Davie Mckeon MD Attending Provider Active Start: September 30, 2024 End: September 30, 2024 Shannan Pressley MD Primary Care Provider Active St art: September 30, 2024 End: September 30, 2024 Team Status: Inactive Member Role/Relationship Status Dates Shannan Pressley MD Primary Care Provider Active St art: September 30, 2024 End: September 30, 2024 Dr. Davie Mckeon MD Attending Provider Active Start: September 30, 2024 End: September 30, 2024 Dr. Davie Mckeon MD Referring Provider Active Start: September 30, 2024 End: September 30, 2024 Team Status: Active Member Role/Relationship Status Dates Shannan Pressley MD Primary Care Provider Active St art: October 27, 2024 Dr. Davie Mckeon MD Attending Provider Active Start: October 27, 2024 Dr. Davie Mckeon MD Referring Provider Active Start: October 27, 2024 Team Status: Inactive Member Role/Relationship Status Dates Shannan Pressley MD Primary Care Provider Active St art: November 01, 2024 End: November 01, 2024 Dr. Sanjana Thomas MD Attending Provider Active Start: November 01, 2024 End: November 01, 2024 Dr. Sanjana Thomas MD Referring Provider Active Start: November 01, 2024 End: November 01, 2024 Team Status: Inactive Member Role/Relationship Status Dates Shannan Pressley MD Primary Care Provider Active St art: November 08, 2024 End: November 08, 2024 Shannan Pressley MD Referring Provider Active Start : November 08, 2024 End: November 08, 2024 Dr. Davie Mckeon MD Attending Provider Active Start: November 08, 2024 End: November 08, 2024 Team Status: Inactive Member Role/Relationship Status Dates Dr. Kristina Richard MD Attending Provider Active Start: November 17, 2024 End: November 17, 2024 Dr. Kristina Richard MD Referring Provider Active Start: November 17, 2024 End: November 17, 2024 Shannan Pressley MD Primary Care Provider Active St art: November 17, 2024 End: November 17, 2024 Team Status: Inactive Member Role/Relationship Status Dates Shannan Pressley MD Primary Care Provider Active St art: December 07, 2024 End: December 07, 2024 Shannan Pressley MD Referring Provider Active Start : December 07, 2024 End: December 07, 2024 Dr. Davie Mckeon MD Attending Provider Active Start: December 07, 2024 End: December 07, 2024 Team Status: Active Member Role/Relationship Status Dates Shannan Pressley MD Primary Care Provider Active St art: December 07, 2024 Dr. Davie Mckeon MD Attending Provider Active Start: December 07, 2024 Team Status: Inactive Member Role/Relationship Status Dates Dr. Kristina Richard MD Primary Care Provider Active Start: August 30, 2024 End: August 30, 2024 Dr. Kristina Richard MD Attending Provider Active Start: August 30, 2024 End: August 30, 2024 Dr. Kristina Richard MD Referring Provider Active Start: August 30, 2024 End: August 30, 2024 Team Status: Inactive Member Role/Relationship Status Dates Dr. Kristina Richard MD Referring Provider Active Start: September 30, 2024 End: September 30, 2024 Dr. Davie Mckeon MD Attending Provider Active Start: September 30, 2024 End: September 30, 2024 Shannan Pressley MD Primary Care Provider Active St art: September 30, 2024 End: September 30, 2024 Team Status: Inactive Member Role/Relationship Status Dates Shannan Pressley MD Primary Care Provider Active St art: September 30, 2024 End: September 30, 2024 Dr. Davie Mckeon MD Attending Provider Active Start: September 30, 2024 End: September 30, 2024 Dr. Davie Mckeon MD Referring Provider Active Start: September 30, 2024 End: September 30, 2024 Team Status: Inactive Member Role/Relationship Status Dates Shannan Pressley MD Primary Care Provider Active St art: October 27, 2024 End: October 27, 2024 Dr. Davie Mckeon MD Attending Provider Active Start: October 27, 2024 End: October 27, 2024 Dr. Davie Mckeon MD Referring Provider Active Start: October 27, 2024 End: October 27, 2024 Team Status: Inactive Member Role/Relationship Status Dates Shannan Pressley MD Primary Care Provider Active St art: November 01, 2024 End: November 01, 2024 Dr. Sanjana Thomas MD Attending Provider Active Start: November 01, 2024 End: November 01, 2024 Dr. Sanjana Thomas MD Referring Provider Active Start: November 01, 2024 End: November 01, 2024 Team Status: Inactive Member Role/Relationship Status Dates Shannan Pressley MD Primary Care Provider Active St art: November 08, 2024 End: November 08, 2024 Shannan Pressley MD Referring Provider Active Start : November 08, 2024 End: November 08, 2024 Dr. Davie Mckeon MD Attending Provider Active Start: November 08, 2024 End: November 08, 2024 Team Status: Inactive Member Role/Relationship Status Dates Dr. Kristina Richard MD Attending Provider Active Start: November 17, 2024 End: November 17, 2024 Dr. Kristina Richard MD Referring Provider Active Start: November 17, 2024 End: November 17, 2024 Shannan Pressley MD Primary Care Provider Active St art: November 17, 2024 End: November 17, 2024 Team Status: Inactive Member Role/Relationship Status Sandrine Pressley MD Primary Care Provider Active St art: December 07, 2024 End: December 07, 2024 Shannan Pressley MD Referring Provider Active Start : December 07, 2024 End: December 07, 2024 Dr. Davie Mckeon MD Attending Provider Active Start: December 07, 2024 End: December 07, 2024 Team Status: Active Member Role/Relationship Status Dates Shannan Pressley MD Primary Care Provider Active St art: December 07, 2024 Dr. Davie Mckeon MD Attending Provider Active Start: December 07, 2024 Dr. Davie Mckeon MD Referring Provider Active Start: December 07, 2024 Team Status: Inactive Member Role/Relationship Status Dates Shannan Pressley MD Primary Care Provider Active St art: December 07, 2024 End: December 07, 2024 Dr. Davie Mckeon MD Attending Provider Active Start: December 07, 2024 End: December 07, 2024 Dr. Davie Mckeon MD Referring Provider Active Start: December 07, 2024 End: December 07, 2024 Team Status: Inactive Member Role/Relationship Status Dates Dr. Kristina Richard MD Referring Provider Active Start: December 27, 2024 End: December 27, 2024 Dr. Deangelo White MD Attending Provider Active Start: December 27, 2024 End: December 27, 2024 Shannan Pressley MD Primary Care Provider Active St art: December 27, 2024 End: December 27, 2024 Team Status: Inactive Member Role/Relationship Status Dates Dr. Kristina Richard MD Referring Provider Active Start: September 30, 2024 End: September 30, 2024 Dr. Davie Mckeon MD Attending Provider Active Start: September 30, 2024 End: September 30, 2024 Shannan Pressley MD Primary Care Provider Active St art: September 30, 2024 End: September 30, 2024 Team Status: Inactive Member Role/Relationship Status Sandrine Pressley MD Primary Care Provider Active St art: September 30, 2024 End: September 30, 2024 Dr. Davie Mckeon MD Attending Provider Active Start: September 30, 2024 End: September 30, 2024 Dr. Davie Mckeon MD Referring Provider Active Start: September 30, 2024 End: September 30, 2024 Team Status: Inactive Member Role/Relationship Status Dates Shannan Pressley MD Primary Care Provider Active St art: October 27, 2024 End: October 27, 2024 Dr. Davie Mckeon MD Attending Provider Active Start: October 27, 2024 End: October 27, 2024 Dr. Davie Mckeon MD Referring Provider Active Start: October 27, 2024 End: October 27, 2024 Team Status: Inactive Member Role/Relationship Status Dates Shannan Pressley MD Primary Care Provider Active St art: November 01, 2024 End: November 01, 2024 Dr. Sanjana Thomas MD Attending Provider Active Start: November 01, 2024 End: November 01, 2024 Dr. Sanjana Thomas MD Referring Provider Active Start: November 01, 2024 End: November 01, 2024 Team Status: Inactive Member Role/Relationship Status Dates Shannan Pressley MD Primary Care Provider Active St art: November 08, 2024 End: November 08, 2024 Shannan Pressley MD Referring Provider Active Start : November 08, 2024 End: November 08, 2024 Dr. Davie Mckeon MD Attending Provider Active Start: November 08, 2024 End: November 08, 2024 Team Status: Inactive Member Role/Relationship Status Dates Dr. Kristina Richard MD Attending Provider Active Start: November 17, 2024 End: November 17, 2024 Dr. Kristina Richard MD Referring Provider Active Start: November 17, 2024 End: November 17, 2024 Shannan Pressley MD Primary Care Provider Active St art: November 17, 2024 End: November 17, 2024 Team Status: Inactive Member Role/Relationship Status Dates Shannan Pressley MD Primary Care Provider Active St art: December 07, 2024 End: December 07, 2024 Shannan Pressley MD Referring Provider Active Start : December 07, 2024 End: December 07, 2024 Dr. Davie Mckeon MD Attending Provider Active Start: December 07, 2024 End: December 07, 2024 Team Status: Inactive Member Role/Relationship Status Dates Shannan Pressley MD Primary Care Provider Active St art: December 07, 2024 End: December 07, 2024 Dr. Davie Mckeon MD Attending Provider Active Start: December 07, 2024 End: December 07, 2024 Dr. Davie Mckeon MD Referring Provider Active Start: December 07, 2024 End: December 07, 2024 Team Status: Inactive Member Role/Relationship Status Dates Dr. Kristina Richard MD Referring Provider Active Start: December 27, 2024 End: December 27, 2024 Dr. Deangelo White MD Attending Provider Active Start: December 27, 2024 End: December 27, 2024 Shannan Pressley MD Primary Care Provider Active St art: December 27, 2024 End: December 27, 2024 Team Status: Inactive Member Role/Relationship Status Dates Shannan Pressley MD Primary Care Provider Active St art: January 13, 2025 End: January 13, 2025 Shannan Pressley MD Referring Provider Active Start : January 13, 2025 End: January 13, 2025 Dr. Davie Mckeon MD Attending Provider Active Start: January 13, 2025 End: January 13, 2025 FOR RECORDS PERTAINING TO PATIENTS WHO ARE [...] BE BASED ON THE PRIMARY CLINICAL RECORDS. [facility] [employer] [facility]. provides no warranty or guarantee of the accuracy or completeness of information in this document.
[2025-01-28] MEDS: Lidocaine 1% /Epi 1:100 (20ml) 20 ML Vial INFILT (18:55)
--- NOTE | 2025-01-28 19:18 | CT_ITS ---
EXAM: CT BRAIN/HEAD; SINUS/FACIAL BONE; SPINE CERVICAL WITHOUT CONTRAST CLINICAL HISTORY: TRAUMA, fall COMPARISON: CT neck 10/27/2024. CT head 09/03/2023. TECHNIQUE: Noncontrast CT images of the head, maxillofacial structures, and cervical spine with multiplanar reconstructions. Dose reduction techniques were used including intermediate exposure control (AEC),iterative reconstruction technique, and/or mA and/or KV dose adjustments based on patient's size. FINDINGS: HEAD/FACE: No acute intracranial hemorrhage, extra-axial collection, mass effect or evidence of acute infarct. Mild generalized brain parenchymal volume loss, and moderate chronic small- vessel ischemic changes in the supratentorial white matter. Chronic encephalomalacia/gliosis in the anterior inferior right frontal lobe. 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 Postoperative changes of prior right frontal craniotomy and bifrontal yrui holes, with metallic fixation to the lateral right orbital rim. No acute skull base or calvarial fracture. No mastoid effusions. Acute displaced right orbital floor blow-out fracture. Inferior herniation of right extraconal intraorbital fat, but no evidence for herniation or impingement of the extraocular musculature. Small amount of amorphous hemorrhage along the right orbital floor, no intraorbital emphysema. Hemorrhage within the right maxillary sinus. No additional acute maxillofacial fracture is seen. CERVICAL SPINE: No acute fracture or subluxation. Straightening of the cervical lordosis is likely positional and/or degenerative in nature. Multilevel spondylotic changes with varying degrees of disc space narrowing, small Schmorl's nodes and/or subchondral cysts, anterior osteophytosis, uncovertebral spurring and hypertrophic facet arthropathy. No prevertebral soft tissue swelling. Mild atherosclerotic vascular calcifications. 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 CT/Brain/Head without Contrast IMPRESSION: 1. Acute displaced right orbital floor blow-out fracture, as described above. 2. No acute intracranial abnormality. 3. Moderate chronic small-vessel ischemic changes with chronic encephalomalacia /gliosis in the anteroinferior right frontal lobe. 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 4. No acute cervical spine fracture or malalignment. Mild spondylotic changes. 5. 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 Reading Location: [facility]
--- NOTE | 2025-01-28 19:18 | CT_ITS ---
EXAM: CT BRAIN/HEAD; SINUS/FACIAL BONE; SPINE CERVICAL WITHOUT CONTRAST CLINICAL HISTORY: TRAUMA, fall COMPARISON: CT neck 10/27/2024. CT head 09/03/2023. TECHNIQUE: Noncontrast CT images of the head, maxillofacial structures, and cervical spine with multiplanar reconstructions. Dose reduction techniques were used including intermediate exposure control (AEC),iterative reconstruction technique, and/or mA and/or KV dose adjustments based on patient's size. FINDINGS: HEAD/FACE: No acute intracranial hemorrhage, extra-axial collection, mass effect or evidence of acute infarct. Mild generalized brain parenchymal volume loss, and moderate chronic small- vessel ischemic changes in the supratentorial white matter. Chronic encephalomalacia/gliosis in the anterior inferior right frontal lobe. 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 Postoperative changes of prior right frontal craniotomy and bifrontal yuri holes, with metallic fixation to the lateral right orbital rim. No acute skull base or calvarial fracture. No mastoid effusions. Acute displaced right orbital floor blow-out fracture. Inferior herniation of right extraconal intraorbital fat, but no evidence for herniation or impingement of the extraocular musculature. Small amount of amorphous hemorrhage along the right orbital floor, no intraorbital emphysema. Hemorrhage within the right maxillary sinus. No additional acute maxillofacial fracture is seen. CERVICAL SPINE: No acute fracture or subluxation. Straightening of the cervical lordosis is likely positional and/or degenerative in nature. Multilevel spondylotic changes with varying degrees of disc space narrowing, small Schmorl's nodes and/or subchondral cysts, anterior osteophytosis, uncovertebral spurring and hypertrophic facet arthropathy. No prevertebral soft tissue swelling. Mild atherosclerotic vascular calcifications. 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 CT/Spine Cervical without Contras IMPRESSION: 1. Acute displaced right orbital floor blow-out fracture, as described above. 2. No acute intracranial abnormality. 3. Moderate chronic small-vessel ischemic changes with chronic encephalomalacia /gliosis in the anteroinferior right frontal lobe. 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 4. No acute cervical spine fracture or malalignment. Mild spondylotic changes. 5. 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 Reading Location: [facility]
--- NOTE | 2025-01-28 19:41 | EX.ED.GENINJ ---
HPI History of Present Illness Chief Complaint: Fall Informant: patient Narrative Narrative: Patient is a 79-year-old female with history of ulcerative colitis, GERD, ruptured cerebral aneurysm status post coiling and arthritis presenting for evaluation after mechanical fall. Patient states he tripped on some uneven stones and fell. She tried to catch herself but did hit her head. She is not sure if she hit her head on the ground or her glasses hit her head. She sustained a laceration above her right eyebrow. Denies any associated loss of conscious. On any blood thinners. Did also hit her left knee mildly. Is unsure when her last tetanus was. Denies any associate numbness or tingling. Is otherwise been in her normal state of health. No other complaints or concerns at this time. Tetanus Immunization: Unknown [facility] Medical History Thyroid nodule Goiter Fatigue Mass of right side of neck Brain aneurysm Rash Restless legs Rheumatoid arthritis History of rheumatic fever Wears glasses Post-menopausal Back pain Migraine headache Gastric reflux Non-smoker Shortness of breath on exertion Leg cramps History of pain when walking GERD (gastroesophageal reflux disease) Arthritis Rectal bleeding Home Medications ?Medication ?Instructions ?Recorded ?Last Taken ?Type Omeprazole [Prilosec] 40 mg PO DAILY 10/21/14 Unknown History cholecalciferol (vitamin D3) 25 25 mcg PO DAILY 07/27/21 Unknown History mcg (1,000 unit) capsule conjugated estrogens 0.625 mg/gram 1.25 mg vaginal QWEEK 07/27/21 Unknown History vaginal cream (Premarin) methotrexate sodium 2.5 mg tablet See Rx Instructions .Route .COMPLEX 07/27/21 Unknown History nortriptyline 25 mg capsule 25 mg PO QHS 07/27/21 Unknown History zinc 50 mg tablet 50 mg PO QODAY 07/27/21 Unknown History latanoprost 0.005 % eye drops 1 drp EACH EYE QHS 08/20/21 Unknown History loratadine 10 mg tablet 10 mg PO DAILY 08/20/21 Unknown History Lactobacillus acidophilus and 1 cap PO DAILY 10/31/22 Unknown History rhamnosus 15 billion cell capsule (Probiotic) losartan 50 mg tablet 50 mg PO QDAY 04/19/24 Unknown History Potassium 1 tab PO 3XW LOW K+ 07/01/24 Unknown History calcium carbonate (Calcium 600) 600 mg PO DAILY 07/01/24 Unknown History cranberry extract 500 mg capsule 500 mg PO QDAY 07/01/24 Unknown History docusate sodium 50 mg capsule 50 mg PO QDAY 07/01/24 Unknown History (Stool Softener) folic acid 1 mg tablet 2 mg PO BID 07/01/24 Unknown History tramadol 50 mg tablet 50 mg PO TID PRN 07/01/24 Unknown History balsalazide 750 mg capsule 750 mg PO BID #180 caps 09/17/24 Unknown Rx tramadol 50 mg tablet 50 mg PO Q8H PRN pain 5 days #15 01/28/25 Unknown Rx tabs Allergy/AdvReac Type Severity Reaction Status Date / Time aspirin Allergy Unknown Verified 01/28/25 17:22 codeine Allergy Unknown Verified 01/28/25 17:22 Sulfa (Sulfonamide Allergy Unknown Verified 01/28/25 17:22 Antibiotics) Family History Father Cancer bladder Mother Heart disease Surgical History Hx of brain surgery Hx of total hip arthroplasty Hx of bladder repair surgery Hx of breast biopsy Hx of arthroscopic knee surgery Hx of arthroscopy of shoulder Hx of appendectomy Hx of hysterectomy Social History Smoking Status: Never smoker alcohol intake: never substance use type: does not use what type of physical activity do you participate in: none ROS ROS ED Constitutional Constitutional ED: Denies chills or fever(s) Eyes Eyes: Denies change in vision ENT ENT ED: Denies rhinorrhea or sore throat Cardiovascular Cardiovascular: Denies chest pain Respiratory/Chest Respiratory/Chest: Denies cough Gastrointestinal Gastrointestinal: Denies nausea or vomiting Musculoskeletal Musculoskeletal: Denies arthralgias or myalgias Integumentary Reports other Details: Laceration to the right eyebrow Neurologic Neurologic: Reports headache(s); Denies paresthesias or weakness Hematologic/Lymphatic Hematologic/Lymphatic: Denies easy bleeding or easy bruising EXAM Physical Exam Const Vital Signs: 01/28/25 17:22 01/28/25 17:57 01/28/25 18:00 Temperature 98.1 F Temperature Source Oral Pulse Rate 89 89 Respiratory Rate 18 16 Respiratory Effort Normal Respiratory Depth Normal Respiratory Pattern Normal Blood Pressure 173/126 H 176/116 H Blood Pressure Mean 141 136 Pulse Ox 96 97 Oxygen Delivery Method Room Air Room Air Room Air 01/28/25 20:19 Temperature Temperature Source Pulse Rate 94 Respiratory Rate 15 Respiratory Effort Respiratory Depth Respiratory Pattern Blood Pressure 170/101 H Blood Pressure Mean 124 Pulse Ox 96 Oxygen Delivery Method Room Air Positive well nourished and well developed General Appearance ED: well developed and NAD HEENT Reports TM's clear HEENT Narrative: No signs of basilar skull fracture. 4 cm full-thickness laceration over the right eyebrow. No tenderness over the orbital floor. No trismus. No epistaxis present. No nasal septal hematoma present. Tympanic Membrane ED: Yes TM's clear Eyes PERRL and EOMs intact bilaterally Neck full ROM General: Negative for tenderness Chest Wall inspection of chest normal and palpation of chest normal Resp normal respiratory effort and clear to auscultation bilaterally Cardio regular rhythm Rate: regular rate GI normal to inspection, nondistended, normoactive bowel sounds Extremity normal to inspection and full ROM Extremity Narrative: Normal extensor mechanism of the lower extremities bilaterally. No obvious deformity of the extremities. Mild tenderness palpation of the left anterior knee with associated overlying erythema consistent with an abrasion. No joint effusion present. General Extremety ED: Negative for deformity General Extremity: Negative for deformity Neuro oriented x3, CN's II-XII intact bilaterally, moves all extremities, no focal motor deficits and no sensory deficits noted Barbie Coma Scale: document GCS findings Spontaneous Obeys Commands Oriented 15 Psych mental status grossly normal and thought process normal Skin Skin Narrative: 3 cm full-thickness laceration over the right eyebrow. PROC Procedures Lacerations Right eyebrow: Length: 1.57 in Depth: Sub Q Shape: Linear Prep: Sterile Conditions and Chlorhexadine Laceration repair: Lidocaine with epi, Local, Skin sutures (7) and Subcutaneous sutures (2) Irrigated (ml): 200 Number of Sutures/Marek: 9 Suture Information: Vicryl (4-0 subcutaneous), Ethilon (5-0 skin) and Simple Comment: Tolerated procedure well. Good approximation. No immediate complications MDM MDM MDM Narrative Medical decision making narrative: Patient presented for mechanical fall with subsequent head injury. Differential includes intracranial hemorrhage, skull fracture, facial fracture, cervical spine fracture. Physical exam not consistent with extraocular muscle entrapment. She has a normal neurologic exam. Laceration repair performed, see procedure note. Tetanus is updated. Patient given Tylenol for headache with improvement. CT imaging does show an acute displaced right orbital floor blowout fracture with no extraocular muscle involvement. No intracranial process or cervical spine fractures. Case discussed with ophthalmology on-call, Dr. Tilley, he states the patient is otherwise stable can follow-up outpatient with plastics and them. Counseled on avoiding blowing her nose or sneezing. I states does not need antibiotics. Patient given outpatient referral. She is comfortable with this plan of care. She does receive her regular prescription for tramadol which she only takes once a day. Canceled that she should take it 3 times a day as needed for pain will be given a refill. She does not want anything stronger for pain. Can also take Tylenol. Given return precautions. Discharged home in stable condition. Ambulated with a steady gait in the emergency room. Radiography Diagnostic Testing: Clinical Impression(s) from Imaging Studies Brain CT 01/28/25 19:18 IMPRESSION: 1. Acute displaced right orbital floor blow-out fracture, as described above. 2. No acute intracranial abnormality. 3. Moderate chronic small-vessel ischemic changes with chronic encephalomalacia/gliosis in the anteroinferior right frontal lobe. 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 4. No acute cervical spine fracture or malalignment. Mild spondylotic changes. 5. 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 Reading Location: [facility] Cervical Spine CT 01/28/25 19:18 IMPRESSION: 1. Acute displaced right orbital floor blow-out fracture, as described above. 2. No acute intracranial abnormality. 3. Moderate chronic small-vessel ischemic changes with chronic encephalomalacia/gliosis in the anteroinferior right frontal lobe. 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 4. No acute cervical spine fracture or malalignment. Mild spondylotic changes. 5. 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 Reading Location: [facility] Facial/Sinus 01/28/25 19:18 IMPRESSION: 1. Acute displaced right orbital floor blow-out fracture, as described above. 2. No acute intracranial abnormality. 3. Moderate chronic small-vessel ischemic changes with chronic encephalomalacia/gliosis in the anteroinferior right frontal lobe. 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 4. No acute cervical spine fracture or malalignment. Mild spondylotic changes. 5. 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 Reading Location: [facility] Discharge Plan Triage Chief Complaint: Fall ED Provider: Elma Davey Dx/Rx/DC Orders Clinical Impression: Complex laceration of right eyebrow, Closed blow-out fracture of right orbital floor, Contusion of knee, Closed head injury Instructions: ED Facial Fracture, ED Head Injury (Adult), ED FACIAL LACERATION Suture Tape Prescriptions: New tramadol 50 mg tablet 50 mg PO Q8H PRN (Reason: pain) 5 Days Qty: 15 0RF No Action zinc 50 mg tablet 50 mg PO QODAY Premarin 0.625 mg/gram cream 1.25 mg vaginal QWEEK Rx Instructions: off 5 days; repeat cycle cholecalciferol (vitamin D3) 25 mcg (1,000 unit) capsule 25 mcg PO DAILY nortriptyline 25 mg capsule 25 mg PO QHS Potassium 99 mg tablet 1 tab PO 3XW losartan 50 mg tablet 50 mg PO QDAY tramadol 50 mg tablet 50 mg PO TID PRN cranberry extract 500 mg capsule 500 mg PO QDAY Rx Instructions: administer with meals Stool Softener 50 mg capsule 50 mg PO QDAY Omeprazole [Prilosec] 40 MG capsule 40 mg PO DAILY methotrexate sodium 2.5 mg tablet See Rx Instructions .ROUTE .COMPLEX Rx Instructions: 6 tabs PO QWEEK-TAKES ON FRIDAY folic acid 1 mg tablet 2 mg PO BID latanoprost 0.005 % drops 1 drp EACH EYE QHS loratadine 10 mg Tablet 10 mg PO DAILY calcium carbonate [Calcium 600] 600 mg calcium (1,500 mg) tablet 600 mg PO DAILY Probiotic 15 billion cell Capsule 1 cap PO DAILY balsalazide 750 mg capsule 750 mg PO BID Qty: 180 3RF Primary Care Provider: Shannan Pressley Referrals: Shannan Pressley MD [Primary Care Provider, Family Practice] Fidel Tilley MD [Med Staff - Active Staff, Surgery] Sorin Jackson MD [Med Staff - Active Staff, Plastic Surgery] Activity Restrictions/Additional Instructions: Your sutures need to come out in 5 to 7 days. You have a fracture to your right orbital floor (below your eye). Please follow-up with both therapeutic recreation specialist and plastic surgery for this. Take tramadol as needed for pain up to 3 times a day. You been given an additional week supply. Please let your prescribing doctor know that you received extra to not violate any pain contract. You may also take Tylenol as needed for pain. Try not to blow your nose or sneeze forcefully until cleared by the eye doctor. Print Language: Croatian Disposition Disposition: Home, Self Care
[2025-01-28 20:19] VITALS: BP 170/101; PULSE 94; RESP 15; O2SAT 96
[2025-01-28 22:16] VITALS: BP 175/95; PULSE 85; RESP 16; TEMP 36.6; O2SAT 99
== END 2025-01-28 22:17 | disposition home or self-care (01) ==
PROVIDERS: Emergency Provider Emergency Medicine; PCP Family Medicine; Visit Provider Emergency Medicine
DX: S01.111A Laceration without foreign body of right eyelid and periocular area, initial encounter (principal); M06.9 Rheumatoid arthritis, unspecified; K50.90 Crohn's disease, unspecified, without complications; S02.31XA Fracture of orbital floor, right side, initial encounter for closed fracture; S80.02XA Contusion of left knee, initial encounter; W01.0XXA Fall on same level from slipping, tripping and stumbling without subsequent striking against object, initial encounter; I67.1 Cerebral aneurysm, nonruptured; K21.9 Gastro-esophageal reflux disease without esophagitis; Z79.899 Other long term (current) drug therapy; Z23 Encounter for immunization
CPT/HCPCS: 12052; 70450; 70486; 72125; 90471; 90715; 99284

== ENCOUNTER → 2025-01-31 | Outpatient (CLI) | payer MEDICARE, SELFPAY ==
[2025-01-31 18:10] LABS: Hematocrit 40.3 % (37-47); Hemoglobin 12.6 g/dL (12.0-15.0); Immature Granulocytes Count 0.010 X10^3/uL (0.0-0.0); Mean Corp Hgb Conc 31.3 g/dL (32-36); Mean Corpuscular Volume 96.4 fL (81-99); Mean Platelet Vol. 10.1 fl (6.2-12.0); NRBC Flagged by Analyzer 0 % (0-5); Platelet Count 273 K/mm3 (150-450); RBC Distribution Width CV 15.5 % (11.6-14.6); RBC Distribution Width SD 55.8 fl (35.1-43.9); Red Blood Count 4.18 M/mm3 (4.2-5.4); White Blood Count 3.9 K/mm3 (4.4-11.0)
[2025-01-31 18:43] LABS: AST(SGOT) 25 U/L (<=31); Alanine Aminotransfer ALT/SGPT 14 U/L (<=34); Albumin, Serum 3.7 g/dL (3.4-4.8); Alkaline Phosphatase 69 U/L (35-104); Anion Gap 9 (5-15); BUN 15 mg/dL (4-19); BUN/Creat Ratio 20.9 RATIO (10-20); Calcium,Total 8.8 mg/dL (7.6-11.0); Carbon Dioxide 28.4 mmol/L (21.0-32.0); Chloride 101 mmol/L (98-108); Globulin 2.9 g/dL (2.2-4.2); Glucose 85 mg/dL (70-99); Potassium 4.1 mmol/L (3.3-5.1)
== END | disposition home or self-care (01) ==
LOC: MTLAB 16:43
PROVIDERS: PCP Family Medicine; Referring Provider Internal Medicine Rheumatology; Visit Provider Internal Medicine Rheumatology
DX: L40.59 Other psoriatic arthropathy (principal); Z79.899 Other long term (current) drug therapy
CPT/HCPCS: 36415; 80053; 85025

== ENCOUNTER 2025-02-24 11:15 | Observation (INO) | payer MEDICARE, SELFPAY ==
[2025-02-24] VITALS (27 sets, daily range): BP systolic 130–166; BP diastolic 64–106; PULSE 78–101; RESP 12–18; TEMP 36.1–36.7; O2SAT 86–98; BMI 37.8
[2025-02-24] MEDS: Lactated Ringers 1,000 ML 15 ML IV (06:00)
[2025-02-24] MEDS: Lidocaine 1% (5 ml sdv) 5 ML Vial IV (07:37)
[2025-02-24] MEDS: fentaNYL 100 MCG/2 ML Ampul 325 MCG IV (10:46)
[2025-02-24] MEDS: BENZOCAINE/MENTHOL 1 LOZENGE MUCOUS MEM ×2 (16:49→20:24)
[2025-02-24] MEDS: Timolol 0.5% 5ML OPTH.BTL 1 DRP OPHTHALMIC (20:24)
[2025-02-25 02:30] VITALS: BP 125/76; PULSE 88; RESP 16; TEMP 36.6; O2SAT 94
[2025-02-25 06:14] VITALS: BP 142/77; PULSE 80; RESP 16; TEMP 36.6; O2SAT 94
[2025-02-25 07:59] VITALS: BP 152/78; PULSE 74; RESP 16; TEMP 36.4; O2SAT 95
[2025-02-25] MEDS: Cholecalciferol (VIT D3) 25 MCG TABLET (1,000 UNITS) PO (08:53)
[2025-02-25] MEDS: Timolol 0.5% 5ML OPTH.BTL 1 DRP OPHTHALMIC (08:54)
== END 2025-02-25 10:08 | disposition home or self-care (01) ==
LOC: SDC 12:45 → MS3 12:45
PROVIDERS: Admitting Provider Surgery; PCP Family Medicine; Referring Provider Surgery; Visit Provider Surgery
PROC: (CPT 60220; principal; 2025-02-24 07:15)
DX: E04.2 Nontoxic multinodular goiter (principal); M06.9 Rheumatoid arthritis, unspecified; I10 Essential (primary) hypertension; K21.9 Gastro-esophageal reflux disease without esophagitis; G25.81 Restless legs syndrome; M19.90 Unspecified osteoarthritis, unspecified site; Z79.899 Other long term (current) drug therapy
CPT/HCPCS: 60220; 00320; 88307; 93005; 99221; A4648; G0378; J2405

== ENCOUNTER → 2025-03-11 | Outpatient (CLI) | payer MEDICARE, SELFPAY ==
--- OUTSIDE RECORDS SUMMARY | 2025-03-11 16:37 | XMS RPT_ITS | CCD ---
Author Organization [facility] Care Team Providers Care Aircraft Machinist Name Role Phone Raudel Miller Unavailable Unavailable Kristina Richard Unavailable Unavailable Deangelo Jeffries Unavailable Unavailable Kristina Richard Unavailable Unavailable Dr. Kristina Richard Primary Care Provider Dr. Kristina Richard Referring Provider Yoly WALDROP, PALMA-C Nisa Tipton Attending Provider [phone] FriendDr. Mitchell Attending Provider [phone] Dr. Stephen Carrizales Other Provider Dr. Kristina Richard Primary Care Provider Dr. Kristina Richard Referring Provider DEMETRIUS Frederick NP Attending Provider Dr. Kristina Richard Primary Care Provider Dr. Kristina Richard Referring Provider Dr. Kristina Richard Primary Care Provider Dr. Kristina Richard Referring Provider DEMETRIUS Frederick NP Attending Provider Dr. Kristina Richard Primary Care Provider Dr. Kristina Richard Referring Provider Yoly WALDROP, PALMA-Ricardo Tipton Attending Provider Dr. Kristina Richard Primary Care Provider Dr. Kristina Richard Referring Provider Yoly RECEPTION CLERK, RECEPTION CLERK-C Nisa Tipton Attending Provider Friend, Dr. Mitchell Attending Provider Dr. Kristina Richard Primary Care Provider Dr. Kristina Richard Referring Provider Friend, Dr. Mitchell Referring Provider [phone] Jose Manuel DE OLIVEIRA, Dr. Kristina Lea [...] OLIVEIRA, Dr. Kristina Lea Primary Care Provider Dr. Sanjana Thomas MD Attending Provider William DE OLIVEIRA, Dr. Allan Referring Provider Jose Manuel DE OLIVEIRA, Dr. Kristina Lea Attending Provider Dr. Davie Mckeon MD Attending Provider Shannan Pressley MD Primary Care Provider Dr. Davie Mckeon MD Referring Provider Jose Manuel DE OLIVEIRA, Dr. Kristina Lea Primary Care Provider Jose Manuel DE OLIVEIRA, Dr. Kristina Lea Referring Provider Shannan Pressley MD Referring Provider Jose Manuel DE OLIVEIRA, Dr. Kristina Lea Primary Care Provider William DE OLIVEIRA, Dr. Allan Attending Provider William DE OLIVEIRA, Dr. Allan Referring Provider Christopher DE OLIVEIRA, Dr. Bright Attending Provider Jose Manuel DE OLIVEIRA, Dr. Kristina Lea Referring Provider Jose Manuel DE OLIVEIRA, Dr. Kristina Lea Attending Provider Huan DE OLIVEIRA, Shannan Primary Care Physician Linda DE OLIVEIRA, Dr. Broderick Attending Physician Linda DE OLIVEIRA, Dr. Broderick Referring Provider William DE OLIVEIRA, Dr. Allan Attending Physician Jose Manuel DE OLIVEIRA, Dr. Kristina Lea Attending Physician Jose Manuel DE OLIVEIRA, Dr. Kristina Lea Referring Provider Christopher DE OLIVEIRA, Dr. Bright Attending Physician Dr. Elma Davey DO Attending Physician Dr. Elma Davey DO Emergency Department Physi tori Renetta DE OLIVEIRA, Dr. Rowell Attending Physician Huan, Chalon Referring Unavailable Davie Mckeon Attending Unavailable Huan, Chalon Primary Care Unavailable Huan, Chalon Primary Care Unavailable Jolliff, Kristina S Referring Unavailable Deangelo White Attending Unavailable Elma Davey Attending Unavailable Huan, Chalon Primary Care Unavailable Vellanki, Sanjana Referring Unavailable Huan, Chalon Primary Care Unavailable Vellanki, Sanjana Attending Unavailable Davie Mckeon Admitting Unavailable Davie Mckeon Referring Unavailable Davie Mckeon Attending Unavailable Huan, Chalon Primary Care Unavailable Davie Mckeon Attending Unavailable Davie Mckeon Referring Unavailable Huan, Chalon Primary Care Unavailable Vellanki, Sanjana Referring Unavailable Vellanki, Sanjana Attending Unavailable Huan, Chalon Primary Care Unavailable Huan, Chalon Primary Care Unavailable Jolliff, Kristina S Referring Unavailable Jolliff, Kristina S Attending Unavailable Davie Mckeon Attending Unavailable Davie Mckeon Referring Unavailable Huan, Chalon Primary Care Unavailable Deangelo White Referring Unavailable Deangelo White Attending Unavailable Jolliff, Kristina S Primary Care Unavailable Vellanki, Sanjana Referring Unavailable Vellanki, Sanjana Attending Unavailable Jolliff, Kristina S Primary Care Unavailable Bortz, Davie Attending Unavailable Bortz, Davie Referring Unavailable Huan, Chalon Primary Care Unavailable Siska, Sorin Attending Unavailable Huan, Chalon Primary Care Unavailable Huan, Chalon Referring Unavailable Bortz, Davie Attending Unavailable Huan, Chalon Primary Care Unavailable Huan, Chalon Referring Unavailable Huan, Chalon Referring Unavailable Bortz, Davie Attending Unavailable Huan, Chalon Primary Care Unavailable Bortz, Davie Attending Unavailable Bortz, Davie Consulting Unavailable Bortz, Davie Admitting Unavailable Bortz, Davie Referring Unavailable Huan, Chalon Primary Care Unavailable Bortz, Davie Attending Unavailable Bortz, Davie Consulting Unavailable Bortz, Davie Referring Unavailable Huan, Chalon Primary Care Unavailable Bortz, Davie Attending Unavailable Huan, Chalon Primary Care Unavailable Huan, Chalon Referring Unavailable Siska, Sorin Attending Unavailable Huan, Chalon Primary Care Unavailable Huan, Chalon Referring Unavailable Siska, Sorin Attending Unavailable Huan, Chalon Primary Care Unavailable Huan, Chalon Referring Unavailable Jolliff, Kristina S Primary Care Unavailable Jolliff, Kristina S Referring Unavailable Jolliff, Kristina S Attending Unavailable Vellanki, Sanjana Referring Unavailable Vellanki, Sanjana Attending Unavailable Jolliff, Kristina S Primary Care Unavailable Bortz, Davie Attending Unavailable Huan, Chalon Primary Care Unavailable Jolliff, Kristina S Referring Unavailable Jolliff, Kristina S Referring Unavailable Deangelo White Attending Unavailable Jolliff, Kristina S Primary Care Unavailable Friend, Stephen Attending Unavailable Jolliff, Kristina S Referring Unavailable Jolliff, Kristina S Primary Care Unavailable Huan , Shannan Primary Care Physician Dr. Davie Mckeon MD Attending Physician Dr. Davie Mckeon MD Referring Provider Dr. Sanjana Thomas MD Attending Physician Dr. Sanjana Thomas MD Referring Provider Linda DE OLIVEIRA, Dr. Broderick Nurse Practitioner Dr. Davie Mckeon MD Admitting Physician Allergies Allergy Classification Reported Allergen(s) Allergy Type Date of Onset Reaction(s) Facility (20 sources) Aspirin; Translations: [Aspirin TABS] Drug Allergy 2 Unknown, [facility] (20 sources) Codeine Drug Allergy 2 Unknown, [facility] (1 source) Sulfonamides (Antibiotic) Allergy to drug (finding) MG-Neurosurger y-[facility] Work Phone: (20 sources) Sulfonamides (Antibiotic); Translations: [Sulfa (Sulfonamide Antibiotics)] Allergy to substance 2 Unknown, [facility] (1 source) Aspirin Drug Allergy 5 [facility] (1 source) Codeine Drug Allergy 5 [facility] Medications Current Medications Medication Drug Class(es) Dates Sig (Normalized) Sig (Original) calcium carbonate 1500 mg oral tablet (20 sources) Start: 07-01-2024 take 1 tablet by mouth once daily Start: 08-20-2021 End: 07-01-2024 Calcium Carbonate (Calcium [...] by mouth once daily Cranberry Conc-Ascorbic Acid (19 sources) Start: 10-21-2014 take 1 capsule by mouth once daily Cranberry Conc-Ascorbic Acid Active 79072 CAP PO DAILY October 21, 2014 10:09am Start: 10-21-2014 Cranberry Conc -Ascorbic Acid Active October 21, 2014 10:09am Start: 10-21-2014 take 1 capsule by mo uth once daily Cranberry Conc-Ascorbic Acid Active 20412 CAP PO DAILY October 20, 2014 11:00pm Start: 10-21-2014 take 1 capsule by mo uth once daily Cranberry Conc-Ascorbic Acid Active 70934 CAP PO DAILY October 21, 2014 12:00am Cranberry Extract (15 sources) Non-Standardized Food Allergenic Extract, Non-Standardized Plant Allergenic Extract Start: 07-01-2024 take 1 capsule by mouth once daily at mealtime Start: 07-01-2024 take 1 capsule by mo uth once daily at mealtime Cranberry Extract 500 mg capsule Active 500 mg PO daily July 01, 2024 1:00am administer with meals Complies with drug therapy Start: 07-01-2024 take 1 capsule by mo uth once daily at mealtime Cranberry Extract 500 mg capsule Active 500 mg PO daily July 01, 2024 1:00am administer with meals docusate sodium 50 mg oral capsule (16 sources) Start: 07-01-2024 take 1 capsule by mo uth once daily Start: 12-22-2014 take 1 capsule by mo uth twice daily Stool Softener 100 MG Oral Capsule TAKE 1 CAPSULE TWICE DAILY. Refills: 0 Deangelo Jeffries MD Start : 22-Dec-2014 Active folic acid 1 mg oral tablet (20 sources) Start: 07-01-2024 take 2 tablets by mouth twice daily Folic Acid 1 mg tablet Active 2 mg PO TWICE A DAY July 01, 2024 10:11am Complies with drug therapy Start: 10-21-2014 take 1 mg by mouth once daily Folic Acid Active 1 MG PO DAILY@0800 October 21, 2014 10:09am Start: 10-21-2014 End: 07-01-2024 take 2 tablets by mouth once daily Start: 10-21-2014 take 2 mg by mouth once daily Folic Acid Active 2 MG PO DAILY@0800 October 21, 2014 12:00am ketoconazole 20 mg/ml topica l cream (4 sources) Azole Antifungal Start: 02-01-2025 Start: 02-01-2025 Ketoconazole 2 % cream Active NMA TOPICAL TWICE A DAY February 01, 2025 12:00am Complies with drug therapy L. Acidophilus-L. Rhamnosus (Probiotic) 15 billion cell Capsule (20 sources) Start: 10-31-2022 Start: 10-31-2022 L. Acidophilus -L. Rhamnosus (Probiotic) 15 billion cell Capsule Active 1 NMA PO DAILY October 31, 2022 12:00am Complies with drug therapy Start: 10-31-2022 L. Acidophilus -L. Rhamnosus (Probiotic) 15 billion cell Capsule Active 1 NMA PO DAILY October 31, 2022 12:00am Start: 10-31-2022 take 1 capsule by mo uth once daily L. Acidophilus-L. Rhamnosus (Probiotic) 15 billion cell Capsule Active 1 CAP PO DAILY October 31, 2022 12:00am loratadine 10 mg oral tablet (20 sources) Start: 08-20-2021 take 1 tablet by mouth once daily losartan potassium 50 mg oral tablet (15 sources) Angiotensin 2 Receptor Percy Start: 04-19-2024 take 1 tablet by mouth once daily methotrexate 2.5 mg oral tablet (20 sources) Folate Analog Metabolic Inhibitor Start: 07-27-2021 Start: 07-27-2021 take 6 tablets by cox monett every week Methotrexate Sodium Active 0 .ROUTE [...] take 1 capsule by mouth at bedtime omeprazole 40 mg delayed release oral capsule (20 sources) Proton Pump Inhibitor Start: 02-04-2014 take 1 capsule by mouth once daily potassium 99 mg extended release oral tablet (20 sources) Start: 07-01-2024 Start: 07-27-2021 Potassium Acti ve 1 TABLET [...] TABLET PO NEEDED July 27, 2021 12:00am Timolol Maleate (1 source) beta-Adrenergic Percy Start: 02-10-2025 traMADol hydrochloride 50 mg oral tablet (20 sources) Opioid Agonist Start: 01-28-2025 take 1 tablet by mouth every eight hours as needed for pain Start: 07-01-2024 End: 02-10-2025 take 1 tablet by mouth three times daily as needed Tramadol 50 mg tablet Discontinued 50 mg PO THREE TIMES A DAY as needed July 01, 2024 1:00am February 10, 2025 10:00am Start: 07-27-2021 End: 07-01-2024 Tramadol (Conzip) 100 [...] tablet by elsa th every other day Start: 07-27-2021 take 1 tablet by elsa th every other day Zinc 50 mg tablet Active 50 mg PO EVERY OTHER DAY July 27, 2021 12:00am Complies with drug therapy Start: 07-27-2021 take 1 tablet by elsa [...] 2:52pm Cranberry Conc-Ascorbic Acid 1 EACH capsule (15 sources) Start: 10-21-2014 End: 07-01-2024 Cranberry Conc-Ascorbic Acid 1 EACH capsule Discontinued 81052 NMA PO DAILY October 21, 2014 12:00am July 01, 2024 10:12am 84 hr estradiol 0.26803 mg/hr transdermal system (20 sources) Estrogen Start: 10-21-2014 End: 07-27-2021 Estradiol 1 EACH patch semiweekly Discontinued 1 NMA TD October 21, 2014 12:00am July 27, 2021 9:04am Start: 10-21-2014 End: 07-27-2021 Estradiol Discontinued 1 EAC H TD October 21, 2014 12:00am July 27, 2021 9:04am Start: 02-04-2014 Estradiol 1 MG Oral Tablet Quantity: 90 Refills: 0 Start : 04-Feb-2014 Active estrogens, conjugated (long term) 0.625 mg/ml vaginal cream (20 sources) Estrogen Start: 07-27-2021 End: 02-10-2025 Conjugated Estrogens (Premarin) 0.625 mg/gram cream Discontinued 1.25 mg VAGINAL EVERY WEEK July 27, 2021 12:00am February 10, 2025 9:56am off 5 days; repeat cycle fludrocortisone 0.1 mg oral tablet (1 source) Start: 12-03-2014 Fludrocortison e Acetate 0.1 MG Oral Tablet Quantity: 30 Refills: 0 Start : 03-Dec-2014 Active Qekutksg-Wbqc-Cyt1-C-Louie-Kahlil sw (Osteo Bi-Flex Caplet) 1 EACH tablet (20 sources) Start: 10-21-2014 End: 07-27-2021 Ikmxnbdt-Jbiz-Fnx4-C-Louie-Kahlil sw (Osteo Bi-Flex Caplet) 1 EACH tablet Discontinued 1 EACH PO October 21, 2014 10:09am July 27, 2021 9:03am Start: 10-21-2014 End: 07-27-2021 Uvbcdecs-Iqtd-Vof2-C-Louie-Kahlil sw (Osteo Bi-Flex Caplet) 1 EACH tablet Discontinued 1 NMA PO October 21, 2014 12:00am July 27, 2021 9:03am Start: 10-21-2014 End: 07-27-2021 Hmrqmfyp-Sqqg-Tvl8-C-Louie-Kahlil sw (Osteo Bi-Flex Caplet) 1 EACH tablet Discontinued 1 EACH PO October 20, 2014 11:00pm July 27, 2021 8:03am Start: 10-21-2014 End: 07-27-2021 Axtodrme-Ckeg-Tfm4-C-Louie-Kahlil sw (Osteo Bi-Flex Caplet) 1 EACH tablet Discontinued 1 EACH PO October 21, 2014 12:00am July 27, 2021 9:03am latanoprost 0.05 mg/ml ophthalmic solution (20 sources) Prostaglandin Analog Start: 08-20-2021 End: 02-10-2025 Latanoprost 0.005 % drops Discontinued 1 NMA EACH EYE AT BEDTIME August 20, 2021 12:00am February 10, 2025 10:01am Start: 08-20-2021 Latanoprost Ac tive 1 DRP EACH EYE AT BEDTIME August 20, 2021 12:00am leucovorin 5 mg oral tablet (20 sources) [...] hr after or 2-3 hrs before dose Mkzzm-1l-Amk-Epa-Fish Oil-D3 (19 sources) Start: 10-21-2014 End: 07-27-2021 Midjh-0b-Cto-Epa-Fish Oil-D3 Discontinued October 21, 2014 10:09am July 27, 2021 9:03am Start: 10-21-2014 End: 07-27-2021 Jtcjb-7z-Tbh-Epa-Fish Oil-D3 Discontinued October 20, 2014 11:00pm July 27, 2021 8:03am Start: 10-21-2014 End: 07-27-2021 Gnqtj-2o-Htb-Epa-Fish Oil-D3 Discontinued October 21, 2014 12:00am July 27, 2021 9:03am Uzkya-0j-Yxy-Epa-Fish Oil-D3 1 EACH capsule (15 sources) Start: 10-21-2014 End: 07-27-2021 Gmmms-6w-Ysv-Epa-Fish Oil-D3 1 EACH capsule Discontinued October 21, 2014 12:00am July 27, 2021 9:03am ondansetron 4 mg oral tablet (1 source) Serotonin-3 Receptor Antagonist Start: 12-03-2014 Ondansetron HCl - 4 MG Oral Tablet Quantity: 30 Refills: 0 Start : 03-Dec-2014 Active microencapsulated potassium chloride 20 meq extended release oral tablet (1 source) Start: 01-02-2015 Berna M20 20 MEQ Oral Tablet Extended Release [...] anus and rectum] Episodic Headache; including migraine (16 sources) Headache; Translations: [Headache] 09-04-2023 Episodic Malaise and fatigue (10 sources) Fatigue; Translations: [Other fatigue] 01-13-2025 Episodic Open wounds of head; neck; and trunk (9 sources) Open wound of scalp with complication; Translations: [Laceration of right eyebrow] 02-05-2025 Episodic Osteoarthritis (20 sources) Arthritis; Translations: [Unspecified osteoarthritis, unspecified site] 07-30-2021 Chronic Other and ill-defined cerebrovascular disease (19 sources) Cerebrovascular disease; Translations: [Cerebrovascular disease, unspecified] 07-04-2024 Chronic Other circulatory disease (20 sources) Personal history of other diseases of the circulatory system; Translations: [History of ruptured cerebral aneurysm] 07-04-2024 Episodic Other hereditary and degenerative nervous system conditions (20 sources) Impaired cognition; Translations: [Mild cognitive impairment, so stated] 07-04-2024 Chronic Other inflammatory condition of skin (1 source) Other psoriatic arthropathy; Translations: [Other psoriatic arthropathy] Onset: Chronic Other injuries and conditions due to external causes (4 sources) Closed injury of head; Translations: [Unspecified injury of head, initial encounter] 02-05-2025 Episodic Other injuries and conditions due to external causes (1 source) Unspecified injury of head, initial encounter; Translations: [Unspecified injury of head, initial encounter] Onset: Episodic Other nervous system disorders (19 sources) Polyneuropathy; Translations: [Polyneuropathy, unspecified] 07-04-2024 Chronic Other nervous system disorders (1 source) Polyneuropathy, unspecified; Translations: [Polyneuropathy, unspecified] Onset: Chronic Other nervous system disorders (19 sources) Abnormal gait; Translations: [Unspecified abnormalities of gait and mobility] 07-04-2024 Episodic Other skin disorders (13 sources) Mass of neck; Translations: [Localized swelling, mass and lump, neck] 09-30-2024 Episodic Other skin disorders (1 source) Localized swelling, mass and lump, neck; Translations: [Localized swelling, mass and lump, neck] Onset: Episodic Regional enteritis and ulcerative colitis (20 sources) Ulcerative colitis; Translations: [Ulcerative colitis, unspecified, without complications] Chronic Residual codes; unclassified (1 source) H/O: surgery; Translations: [Status post laparotomy] Episodic Residual codes; unclassified (1 source) Acquired absence of other part of head and neck; Translations: [Acquired absence of other part of head and neck] Onset: Episodic Residual codes; unclassified (2 sources) History of thyroid lobectomy; Translations: [Acquired absence of other part of head and neck] 03-07-2025 Episodic Comment on above: Patient is a 79-year -old female presently 9 days status post right thyroid lobectomy with isthmusectomy using intraoperative neuromonitoring. She is recovering well. She is without complaint. She is well-healing on exam. Unfortunately we do not have pathology following her operation but we will plan to call her with this result once it is finalized. Additionally I provided her with wound care instructions to be performed twice daily. Will look for reevaluation at 5 weeks postop. Rheumatoid arthritis and related disease (16 sources) Rheumatoid arthritis; Translations: [Rheumatoid arthritis, unspecified] 09-04-2023 Chronic Skull and face fractures (16 sources) Closed blow-out fracture of right orbital floor; Translations: [Fracture of orbital floor, right side, initial encounter for closed fracture] 02-05-2025 Episodic Superficial injury; contusion (4 sources) Contusion of knee; Translations: [Contusion of unspecified knee, initial encounter] 02-05-2025 Episodic Thyroid disorders (20 sources) Thyroid nodule; Translations: [...] conservative surgery. Patient and her family saw [place] this recommendation and thus we proceeded with [...] conservative surgery. Patient and her family saw [place] this recommendation and thus we proceeded with biopsy of the nodule in question during today's visit. This was technically challenging given the presence of calcifications. Complete details are given in the procedures section of this note.Update 01/13/2025: Patient presents today to discuss possible right thyroid lobectomy with isthmusectomy given large right thyroid nodule that is discrepant to much smaller left thyroid lobe. Suggested there was little utility in considering repeat biopsy of patient's partially calcified left thyroid nodule and further shared CT imaging of the cervical spine performed November 2021 that showed evidence of this nodule at the time of that study measuring approximately what radiology measured during this year studies. I went on to describe my recommendation against trying to incorporate this nodule in the resected surgical specimen on account of increased risk with little perceived benefit. I used a hand-drawn schematic to illustrate the procedure specific risks including recurrent laryngeal nerve injury and hypoparathyroidism. Patient and her daughter confirmed understanding of this information. I shared that I would plan for this to be an outpatient procedure but would not be able to exclude the possibility of an overnight observation. Patient names a number of upcoming family commitments and wishes to proceed operatively after these events. 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 / I60.7(ICD-10) Onset: 8 Viral infection (16 sources) Respiratory syncytial virus infection; Translations: [Other specified viral diseases] 09-04-2023 Episodic Past or Other Problems Problem Classification Problem Date Documented Date Episodic/Chronic Other screening for suspected conditions (not mental disorders or infectious disease) (20 sources) High carcinoembryonic antigen level; Translations: [Elevated carcinoembryonic antigen [CEA]] Onset: 11-23-2024 Episodic Thyroid disorders (1 source) Disorder of thyroid, unspecified; Translations: [Disorder of thyroid, unspecified] Onset: 10-06-2024 Episodic Unclassified (1 source) 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 Sorin Jackson MD Age/Sex: 79/F Location: [place] [address] Status: Signed Intake Vital Signs 02/01/25 13:37 02/24/25 14:30 Height 5 ft 1 in 5 ft 1 in Intake Visit Reasons: 1 month follow up orbit fx Chief Complaint: follow up orbit fx Is patient in pain?: No Allergies aspirin Allergy (Verified 03/08/25 15:44) Hives codeine Allergy (Verified 03/08/25 15:44) Hives Sulfa (Sulfonamide Antibiotics) Allergy (Verified 03/08/25 15:44) Hives Medications ???Medication ???Instructions ???Recorded ???Confirmed ???Type Omeprazole [Prilosec] 40 mg PO DAILY 10/21/14 03/08/25 H istory cholecalciferol (vitamin D3) 25 25 mcg PO DAILY 07/27/21 03/08/25 History mcg (1,000 unit) capsule methotrexate sodium 2.5 mg tablet 15 mg PO FR 07/27/21 03/08/25 His tory nortriptyline 25 mg capsule 25 mg PO QHS 07/27/21 03/08/25 His tory zinc 50 mg tablet 50 mg PO QODAY 07/27/21 03/08/25 H istory loratadine 10 mg tablet 10 mg PO DAILY 08/20/21 03/08/25 H istory Lactobacillus acidophilus and 1 cap PO DAILY 10/31/22 03/08/25 H istory rhamnosus 15 billion cell capsule (Probiotic) losartan 50 mg tablet 50 mg PO QDAY 04/19/24 03/08/25 Hi story Potassium 1 tab PO MOWEFR LOW K+ 07/01/24 History calcium carbonate (Calcium 600) 600 mg PO DAILY 07/01/24 03/08/25 History cranberry extract 500 mg capsule 500 mg PO QDAY 07/01/24 03/08/25 H istory docusate sodium 50 mg capsule 50 mg PO QDAY 07/01/24 03/08/25 Hi story (Stool Softener) folic acid 1 mg tablet 2 mg PO DAILY 07/01/24 03/08/25 Hi story balsalazide 750 mg capsule 750 mg PO BID colitis #180 caps 03/08/25 Rx tramadol 50 mg tablet 50 mg PO Q8H PRN pain 5 days #15 0 01/28/25 03/08/25 Rx tabs ketoconazole 2 % topical cream 1 applic topical BID PRN SKIN 01/1103/08/25 History timolol maleate 0.5 % eye drops 1 drp ophthalmic (eye) BID 5 03/08/25 History Have you fallen in the past year?: No PFSH Medical History Ambulates with cane Back pain Injury of head and neck History of edema Fracture of right orbital floor Hypertension Goiter Thyroid nodule Mass of right side of neck Brain aneurysm Restless legs Rheumatoid arthritis History of rheumatic fever Wears glasses Post-menopausal Gastric reflux Non-smoker Shortness of breath on exertion History of pain when walking GERD (gastroesophageal reflux disease) Arthritis Rectal bleeding Surgical History History of lobectomy of thyroid Hx of colonoscopy Hx of brain surgery Hx of total [...] physical activity do you participate in: none additional social history: pt denies vaping, denies edibles, denies marijuana use, denies aspirin and ibuprofen use, denies family history of blood clots/disorders HPI 1 month follow up orbit fx Details: HPI 01 FEB 2025: Patient is a 79-year-old female with history of ulcerative colitis, GERD, ruptured cerebral aneurysm status post coiling and arthritis presenting for evaluation after mechanical fall while gardening on 01/28. She hit her head and the top of her glasses broke but she denied loss of consciousness. She's not on any blood thinners. She underwent trauma work up at the ED and was found to have right orbital floor fracture and her right forehead laceration was repaired. Brain CT and cervical spine CT was negative for acute injuries. She presents today with her daughter. She saw her eye doctor yesterday and states everything was ok. She notes double vision when looking at the TV and her glassess is still broken. She does not have double vision currently during her visit. She does have follow up with her PCP for suture removal this Friday. She denies facial numbness, tingling, nausea, vomiting. Daughter notes since her aneurysm years ago she's lost peripheral vision on both sides right worse than left. 08 Feb 2025: Patient doing well overall but has noticed some right cheek and right upper maxillary teeth numbness. She is not having any double visi (more content not included)... Normal [facility] Surgery Visit Reporton 03-07 Surgery Visit Report [facility] [address] [place] [address] OFFICE VISIT Date of Service: 03/07/25 MR#: [id number] Acct: [id number] Name: ANNE DUARTE GENA Rep #: [id number] : 1945 Provider: Dr. Davie richard MD Age/Sex: 79/F Location: [facility] Status: Signed Intake Vital Signs 02/24/25 14:30 Height 5 ft 1 in Intake Visit Reasons: Thyroid lobectomy DOS 02/24 Chief Complaint: thyroid lobectomy dos 02/24 Is patient in pain?: No Allergies aspirin Allergy (Verified 03/07/25 09:07) Hives codeine Allergy (Verified 03/07/25 09:07) Hives Sulfa (Sulfonamide Antibiotics) Allergy (Verified 03/07/25 09:07) Hives Medications ???Medication ???Instructions ???Recorded ???Confirmed ???Type Omeprazole [Prilosec] 40 mg PO DAILY 10/21/14 03/07/25 H istory cholecalciferol (vitamin D3) 25 25 mcg PO DAILY 07/27/21 03/07/25 History mcg (1,000 unit) capsule methotrexate sodium 2.5 mg tablet 15 mg PO FR 07/27/21 03/07/25 His tory nortriptyline 25 mg capsule 25 mg PO QHS 07/27/21 03/07/25 His tory zinc 50 mg tablet 50 mg PO QODAY 07/27/21 03/07/25 H istory loratadine 10 mg tablet 10 mg PO DAILY 08/20/21 03/07/25 H istory Lactobacillus acidophilus and 1 cap PO DAILY 10/31/22 03/07/25 H istory rhamnosus 15 billion cell capsule (Probiotic) losartan 50 mg tablet 50 mg PO QDAY 04/19/24 03/07/25 Hi story Potassium 1 tab PO MOWEFR LOW K+ 07/01/24 History calcium carbonate (Calcium 600) 600 mg PO DAILY 07/01/24 03/07/25 History cranberry extract 500 mg capsule 500 mg PO QDAY 07/01/24 03/07/25 H istory docusate sodium 50 mg capsule 50 mg PO QDAY 07/01/24 03/07/25 Hi story (Stool Softener) folic acid 1 mg tablet 2 mg PO DAILY 07/01/24 03/07/25 Hi story balsalazide 750 mg capsule 750 mg PO BID colitis #180 caps 03/07/25 Rx tramadol 50 mg tablet 50 mg PO Q8H PRN pain 5 days #15 0 01/28/25 03/07/25 Rx tabs ketoconazole 2 % topical cream 1 applic topical BID PRN SKIN 01/1103/07/25 History timolol maleate 0.5 % eye drops 1 drp ophthalmic (eye) BID 5 03/07/25 History Have you fallen in the past year?: No Subjective Details: Patient presents following right thyroid lobectomy with isthmusectomy on 02/24/2025. She presents today's visit with her daughter. Since hospital discharge they have been doing very well. They report no postoperative pain at this juncture and required only 2 days of Tylenol/tramadol (prescribed for arthritic complaints). They did experience some sore throat for a couple days but denies any difficulty swallowing or hoarseness at present. They confirm normal energy levels. Lastly they suggest that their breathing has improved when lying down when compared to preop Objective Details: Constitutional: Appreciative, cooperative Neck: Steri-Strips still intact, when these are removed there is persistent soft tissue edema but largely the epidermal layers are well-approximated. There is no incisional tenderness. There is some persistent induration. Coding Level of Care Code Global Post Op Diagnoses History of lobectomy of thyroid Z90.09 [facility] Medical History (Updated 03/05/25 @ 00:00 by Background Daemon) Ambulates with cane Back pain Injury of head and neck History of edema Fracture of right orbital floor Hypertension Goiter Thyroid nodule Mass of right side of neck Brain aneurysm Restless legs Rheumatoid arthritis History of rheumatic fever Wears glasses Post-menopausal Gastric reflux Non-smoker Shortness of breath on exertion History of pain when walking GERD (gastroesophageal reflux disease) Arthritis Rectal bleeding Surgical History (Updated 03/07/25 @ 11:[address] Davie Mckeon MD) History of lobectomy of thyroid Hx of colonoscopy Hx of brain surgery Hx of total [...] physical activity do you participate in: none additional social history: pt denies vaping, denies edibles, denies marijuana use, denies aspirin and ibuprofen use, denies family history of blood clots/disorders Assessment and Plan (No Qualifiers) Assessment and Plan (1) History of lobectomy of thyroid: Status: Acute Comment: Patient is a 79-year-old female presently 9 days status post right thyroid lobectomy with isthmusectomy using intra (more content not included)... Normal [facility] Discharge Instructionon 02-09 Discharge Instruction [facility] Medical Records Department [address] [place] [id number] Instructions for Home/Discharge Instructions 02/25/25 0906 MR#: [id number] Acct: [id number] Name: ANNE DUARTE GENA Rep #: [id number] : 1945 79 From: Davie Mckeon MD PCP: Dr. Shannan Pressley MD Status:ADM PRAVIN Discharge Instructions DC O2, CPAP, BIPAP needs Home O2 Discharge instructions: No Dressing / Incision Discharge Activity: May Not Drive (While it remains difficult to check blind spots quickly) May shower in (days): 1 Ice area for (Minutes): 20 Lifting Restrictions: No lifting greater than 15 pounds for 2 weeks after surgery Dressing / Incision Call your doctor if your incision/area has: Continuous Slow Oozing, Sudden Increased Bleeding, Increased Pain/ Swelling, Increased Redness and Swelling at the incision site Call your doctor if you observe: Numbness or Tingling Remove Dressing in: 1 day (Please leave Steri-Strips intact until they fall off spontaneously or are taken off at your follow-up visit) Cleanse incision/area with: Soap Water Follow Up Care Please Follow Up With: Davie Mckeon MD When: 7-10 days postop Test Results: Test results from this visit will be discussed in further detail at your follow-up appointment, if applicable. Discharge Plan Admission Admit Date/Time: 02/24/25 11:15 Primary Reason for Your Visit: Thyroid surgery Attending Provider: Davie Mckeon Primary Care Provider: Shannan Pressley Discharge Orders/Prescriptions Prescriptions: Continued zinc 50 mg tablet 50 mg PO QODAY cholecalciferol (vitamin D3) 25 mcg (1,000 unit) capsule 25 mcg PO DAILY nortriptyline 25 mg capsule 25 mg PO QHS Potassium 99 mg tablet 1 tab PO MOWEFR losartan 50 mg tablet 50 mg PO QDAY cranberry extract 500 mg capsule 500 mg PO QDAY Rx Instructions: administer with meals Stool Softener 50 mg capsule 50 mg PO QDAY ketoconazole 2 % cream 1 applic topical BID PRN (Reason: SKIN) Omeprazole [Prilosec] 40 MG capsule 40 mg PO DAILY methotrexate sodium 2.5 mg tablet 15 mg PO FR Rx Instructions: 6 tabs PO QWEEK-TAKES ON FRIDAY folic acid 1 mg tablet 2 mg PO DAILY loratadine 10 mg Tablet 10 mg PO DAILY calcium carbonate [Calcium 600] 600 mg calcium (1,500 mg) tablet 600 mg PO DAILY Probiotic 15 billion cell Capsule 1 cap PO DAILY timolol maleate 0.5 % drops 1 drp ophthalmic (eye) BID tramadol 50 mg tablet 50 mg PO Q8H PRN (Reason: pain) 5 Days Qty: 15 0RF balsalazide 750 mg capsule 750 mg PO BID Qty: 180 3RF Referrals / Follow Up: Shannan Pressley MD [Primary Care Provider, Family Practice] Disposition Disposition (needs filled in before D/C Order can be placed): Home, Self Care 02/25/25 0910 Davie Mckeon MD CC: Dr. Shannan Pressley MD Signed Normal [facility] MR/POSTOP.[place] 02-24-2025 MR/POSTOP.ANE [facility] Medical Records Department [address] [place] [address] Anesthesia Postop Eval I 02/24/25 1123 MR#: [id number] Acct: [id number] Name: ANNE DUARTE GENA Rep #: [id number] : 1945 79 From: Clay Guerrero CRNA PCP: Dr. Shannan Pressley MD Status:REG SDC Y Race: C Location: [place] [address] Anesthesia: Postop Eval I Current Vital Signs Temperature: 97.2 F Pulse Rate: 78 Blood Pressure: 130/64 Respiratory Rate: 12 Pulse Ox: 96 Oxygen Delivery Method: Nasal Cannula Oxygen Flow Rate (L/min): 4 Assessment Airway patent: Yes Spontaneous unlabored respirations: Yes Mental status: Awake and Calm nausea: No Vomiting: No Anesthesia Complication: No Fluid Hydration Crystalloid volume administer (ml): 1,300 Total IV fluid infused: 1,300 Progress Note Anesthesia document: Postop Eval 1 completed: Yes 02/24/251123 Date Clay Patriciaigner Signature: Date CC: Signed Normal [facility] MR/ACFNUTEQ3qt 02-24-2025 MR/POSTOPAN2 [facility] Medical Records Department [address] [place] [address] Anesthesia Postop Eval II 02/24/25 1412 MR#: [id number] Acct: [id number] Name: ANNE DUARTE GENA Rep #: [id number] : 1945 79 From: Son Black MD PCP: Dr. Shannan Pressley MD Status:ADM PRAVIN Y Race: C [place] [facility] [place] Anesthesia Postop Eval I Sum Postop Eval Completion status Anesthesia document: Postop Eval 1 completed: Yes Anesthesia Postop Eval I Summary Anesthesia Postop Eval I Summary: Anesthesia Postop Eval I: Assessment Summary Airway patent Yes 02/24/25 11:24 LIME [email or web address].SHOF Spontaneous unlabored Yes 02/24/25 11:24 LIME SLAKER.SHOF respirations Mental status Awake,Calm 02/24/25 11:24 LIME SLAKER.SHOF nausea No 02/24/25 11:24 LIME SLAKER.SHOF Vomiting No 02/24/25 11:24 LIME SLAKER.SHOF Anesthesia Postop Eval I: Fluid Summary Crystalloid volume administer 1,300 02/24/25 11:24 LIME SLAKER.SHOF (ml) Colloids volume administered ( ml) Blood Product volume administered (ml) Total IV fluid infused 1,300 02/24/25 11:24 LIME [email or web address].SHOF Anesthesia Postop Eval I: Summary Notes Anesthesia Complication No 02/24/25 11:24 LIME [email or web address].SHOF Anesthesia Complication Comment: Post-operative progress note Anesthesia: Postop Eval II Evaluation Mental status: Awake and Calm Pain Level: 1 nausea: No Vomiting: No Progress Note Post-operative progress note: The surgeon requested SBP below 160 mmHg. In PACU treated twice with labetalol 5 mg IV with better control with SBP around 140 mmHg. The patient was admitted to the floor from PACU for overnight stay. The surgeon aware of the blood pressure treatments. Complications Anesthesia Complication: No 02/24/25 1413 Date Son Black MD Cosign Signature: Date CC: Signed Normal [facility] Operative Reporton Operative Report [facility] Medical Records Department [address] [place] [address] Operative Report 02/24/25 1111 MR#: [id number] Acct: [id number] Name: ANNE DUARTE GENA Rep #: [id number] : 1945 79 From: Davie Mckeon MD PCP: Dr. Shannan Pressley MD Status:ADM PRAVIN [place] [facility] [place]-8 Operative Report (Standard) Operative Information Date of Procedure: 02/24/25 Pre-Operative Diagnosis: Multinodular goiter with compressive symptoms Post-Operative Diagnosis: Same Surgery/Procedure Performed: Right thyroid lobectomy with isthmusectomy using intraoperative neuromonitoring hand salter: Yes Forestry Technical Officer: Francesca Sahni Tasks completed by assistant housekeeping manager: Opening closing Type of Anesthesia: General/Supplemental RN Documented Start/Stop Times: Operation Date: 02/24/25 07:30 Case Time Into Pre-Op 02/24/25 05:55 Out of Pre-Op 02/24/25 07:22 Anesthesia Start 02/24/25 07:24 Into Room 02/24/25 07:24 Procedure Start 02/24/25 08:01 Procedure End 02/24/25 11:08 Anesthesia End 02/24/25 11:15 Out of Room 02/24/25 11:15 Into Recovery 02/24/25 11:17 Out of Recovery 02/24/25 14:21 Procedure Start Time: 08:01 Procedure Stop Time: 11:08 Select all DRAINS/GRAFTS/IMPLANTS that apply: None Estimated Blood Loss: 100 Specimen collected: Yes Description of specimen(s) removed: Right thyroid lobe and isthmus with stitch marking superior pole Description of surgery: After appropriate identification in the preoperative holding area, the patient was brought to the operating room where she was positioned supine on the operating room table. Induction of general endotracheal anesthetic was begun and a NIMS tube was placed under glidescope view to confirm coaptation with the vocal cords anteriorly. The endotracheal tube was then secured and the patient was positioned with a shoulder roll so that her head was in extension but supported. The Nims electrodes were placed and connected to the monitor. We had appropriate resistance showing on the monitor and tapping at the level of the cricoid produce a graphical representation of the impulse on the monitor. Patient's neck was then prepped and draped in usual sterile fashion and a formal timeout was conducted from those present. The lowest skin fold to the sternal notch was selected for incision site (this resided approximately 2 fingerbreadths cephalad to the notch). An incision was extended for 2.5 cm on either side of midline (however, this was enlarged in both directions later in the procedure to accommodate the extraction of the specimen). Electrocautery was used to deepen this incision through the level of the platysma. Subplatysmal flaps were raised with the use of electrocautery and blunt dissection. The strap muscles were then divided along the medial raphe bringing us down to the level of the thyroid. There was clear evidence of venous hypertension with venous distention. Bleeding from the thyroid capsule is unable to be quickly controlled with electrocautery so I elected to perform a simple stick tie with 3-0 Vicryl and this did bring about hemostasis. Capsular attachments to the thyroid were divided with the use of LigaSure or bluntly swept away with a peanut sponge. Retractors were placed providing visualization of the right superior pole of the thyroid. Meticulous dissection followed to isolate the polar vessels so as not to incur more bleeding. The vessels of the superior pole were sequentially ligated with the use of the LigaSure device. As we moved towards the thyroid gland away from the pole vessels, we continued to free the lateral edge of the thyroid from its muscular attachments. I kept vigilant for a right superior parathyroid gland but not immediately visualize this gland. I then moved inferiorly and divided those muscular attachments and polar vessels with LigaSure. With the poles freed the thyroid was mobilized medially and anteriorly out of the wound bed. Digitally I was able to free the attachments to the inferior pole that extended slightly substernal until I was able to deliver the inferior pole out of the wound cavity. However, there was some resistance with this maneuver at the wound opening so I chose to partially divide the cranial head of the sternothyroid muscle with the use of LigaSure (for later reattachment during closure). In the superior pole I continued to carefully separate the pole from the thyroid cartilage. In the midportion of the cavity I recognized that I was somewhat lateral to the actual thyroid capsule and regained the appropriate plane against the capsule with my dissection to try to avoid any vascular injury to the parathyroid glands. I bluntly the remaining strap muscle fibers from the thyroid capsule and using blunt dissection parallel to the presumed course of the recurrent laryngeal nerve I exposed the tracheoesop (more content not included)... Normal [facility] Surgery Specimen Level Von 1 Surgery Specimen Level V Patient Age/Sex Location Account Attending Physician ANNE DUARTE 79/F MS3 [id number] Dr. Davie Mckeon MD Specimen: [id number] Received: 02/24/25 Status: HARSHAL Velazquez Num: [id number] Spec Type: THYROID Subm Dr: Dr. Davie Mckeon MD HEADER OPERATION: Right thyroid lobectomy with isthmus and IONM PRE-OP DIAGNOSIS: Thyroid nodule TISSUE SUBMITTED: A- Right thyroid lobe with isthmus *stitch ely right superior pole* MICROSCOPIC DIAGNOSIS A. Right thyroid and isthmus, right grant-thyroidectomy with isthmectomy: * Multinodular hyperplasia (multinodular goiter). * Reactive/degenerative changes. MICROSCOPIC DESCRIPTION Slides are reviewed. GROSS DESCRIPTION A. Received in formalin labeled with the patient's name and date of . Designated as right thyroid lobe with isthmus is a 91.2 g, hemithyroidectomy. There is a suture designated as right superior pole. The specimen is comprised of: Right lobe: 4.0 x 2.5 x 1.4 cmIsthmus: 2.3 x 1.4 x 0.7 cmRight lobe, inferior nodule: 6.4 x 6.1 x 4.4 cm The external capsule is somewhat shaggy with adhesions and focal disruptions. The specimen is inked as follows: Anterior: BlackPosterior: GreenIsthmus: Nuckolls The specimen is serially sectioned from superior to inferior revealing red spongy parenchyma with a 1.3 x 1.3 x 1.0 cm pale yip nodule containing colloid material in the mid right lobe. The cut surfaces of the right inferior lobe nodule are pale yip-pink to red, variegated, and predominantly soft but focally solid and cystic; there are patchy hemorrhages, focal apparent calcification, and colloid material present. A definitive capsule of the nodule is not identified. Buckle Assembler sections are submitted, sequentially from superior to inferior, in [13 cassettes as follows: A1-A2: Isthmus, perpendicularA3: Right superior lobeA4-A5: Right middle lobe noduleA6: Nodule with patchy hemorrhagesA7: Nodule with focally solid cut surfacesA8: Nodule with focally solid cut surfaces and calcificationsA9: Nodule with focally solid cut surfaces and vbwsenavfcpfvM64: Nodule with patchy hemorrhages and ogvspvwqcbtxwzJ07: Nodule with patchy vpmsfxftryjB70: Nodule with patchy hemorrhages and ftkycsiukleodQ35: Nodule with focally solid and cystic cut surfaces [place] 02/24/2025 [facility]:[id number] Patient Age/Sex Location Account Attending Physician ANNE DUARTE GENA 79/F MS3 [id number] Dr. Davie Mckeon MD Signed (signature on file) Dr. Fany Romeo MD 03/09/25 0907 Normal [facility] Comment on above: Performed By: #### P SUV #### [facility] Laboratory [address] [facility] [place], [address] 12 Lead EKGon 02-15-2025 12 Lead EKG [facility] Cardiovascular Services [address] [place] [address] 12 Lead EKG 02/15/25 1046 MR#: [id number] Acct: [id number] Name: ANNE DUARTE GENA Rep #: [id number] : 1945 79 From: Wenceslao Pierson MD Attending Dr: Dr. Davie Mckeon MD Status: PRE SDC Ordering Dr: Wilber Wood MD Date: 02/15/25 Location: [facility] Sex: F C Admitted: Test Reason : PREOP Blood Pressure : */* mmHG Vent. Rate : 98 BPM Atrial Rate : 98 BPM P-R Int : 154 ms QRS Dur : 70 ms QT Int : 358 ms P-R-T Axes : 45 -12 14 degrees QTcB Int : 457 ms Normal sinus rhythm Moderate voltage criteria for LVH, may be normal variant Nonspecific T wave abnormality Abnormal ECG Confirmed by WENCESLAO PIERSON MD ([id number]), NIDA Alexandre ([id number]) on 02/15/2025 1:47:39 PM Referred By: Davie Mckeon Confirmed By: WENCESLAO PIERSON MD 02/15/251346 Date Wenceslao Pierson MD CC: Dr. Wilber Wood MD; Dr. Shannan Pressley MD; Dr. Davie Mckeon MD Signed Normal [facility] Electrocardiogram reportOrde red By: Wenceslao Pierson on 02-15-2025 EKG study [facility] Cardiovascular Services [address] [place] [address] 12 Lead EKG 02/15/25 1046 MR#: [id number] Acct: [id number] Name: ANNE DUARTE Rep #:[id number] : 1945 79 From: Wenceslao Pierson MD Attending Dr: Dr. Davie Mckeon MD Status: PRE [facility] Ordering Dr: Wilber Wood MD Date: 02/15/25 Location: [facility] Sex: F C Admitted: Test Reason : PREOP Blood Pressure : */* mmHG Vent. Rate : 98 BPM Atrial Rate : 98 BPM P-R Int : 154 ms QRS Dur : 70 ms QT Int : 358 ms P-R-T Axes : 45 -12 14 degrees QTcB Int : 457 ms Normal sinus rhythm Moderate voltage criteria for LVH, may be normal variant Nonspecific T wave abnormality Abnormal ECG Confirmed by WENCESLAO PIERSON MD ([id number]), NIDA Alexandre ([id number]) on 51:47:39 PM Referred By: Davie Mckeon Confirmed By: WENCESLAO PIERSON MD 10/07/25 1347 Date _ Wenceslao Pierson MD CC: Dr. Wilber Wood MD; Dr. Shannan Pressley MD; Dr. Davie Mckeon MD ~ Signed [facility] Other Phone: MR/PATElise 02-15-2025 MR/PAT.DEEP [facility] Medical Records Department [address] [place] [address] PAT - Anesthesia 02/15/25 1536 MR#: [id number] Acct: [id number] Name: ANNE DUARTE GENA Rep #: [id number] : 1945 79 From: Feroz Fields MD PCP: Dr. 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 When Was Last Pacemaker Check QUESTION #4 FULL TEXT: You/Your Family Experience fever (hyperthermia) with Anesthesia Last Oral Intake Last Oral intake: Last Oral Intake NPO since Meds taken in AM with sips of water? 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 Female Yes 02/10/25 10:04 HX of Motion Sickness No 02/10/25 10:04 HX of N/V After Surgery Yes 02/10/25 10:04 Non-Smoker Yes 02/10/25 10:04 Duration of Surgery greater Yes 02/10/25 10:04 than 60 minutes Number of Risk Factors 4 02/10/25 10:04 PONV Score Severe Risk 02/10/25 10:04 Height Weight Height Weight: Anesthesia: Height Weight Height 5 ft 01/13/25 09:27 Respiratory Assessment Respiratory Assessment - posting machine operator: Respiratory 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 Has anyone observed you stop No 02/10/25 10:04 breathing during sleep? STOP Results Negative 02/10/25 10:04 QUESTION #5 FULL TEXT : Do you snore loudly (louder than talking or can be heard through closed doors)? 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 Specify any problems Hx of Preganancy in last 3 No 02/10/25 10:04 Months Nurse Filling Out Transfusion DSCHRIBER 02/10/25 10:04 Questions: Date: 02/10/25 02/10/25 10:04 Time: 10:06 02/10/25 10:04 Patient unable to answer at this time (ie. 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 Hx Now No 02/10/25 10:04 Gestational Age (in weeks): EDC: Hx Hx Para Hx Section SAB No 02/10/25 10:04 [facility] Medical History (Updated 02/10/25 @ 10:14 by Vero Waters) Ambulates with cane Back pain Injury of head and neck History of edema Fracture of right orbital floor Hypertension Goiter Thyroid nodule Mass of right side of neck Brain aneurysm Restless legs Rheumatoid arthritis History of rheumatic fever Wears glasses Post-menopausal Gastric reflux Non-smoker Shortness of breath on exertion History of pain when walking GERD (gastroesophageal reflux disease) Arthritis Rectal bleeding Home Medications ???Medication ???Instructions ???Recorded ???Last Taken ???Type Omeprazole [Prilosec] 40 mg PO DAILY 10/21/14 Unknown Hi story cholecalciferol (vitamin D3) 25 25 mcg PO DAILY 07/27/21 Unknown H istory mcg (1,000 unit) capsule methotrexate sodium 2.5 mg tablet 15 mg PO FR 07/27/21 Unknown Hist ory nortriptyline 25 mg capsule 25 mg PO QHS 07/27/21 Unknown (more content not included)... Normal [facility] Plastic Surgery Visit Report on 02-08-2025 Plastic Surgery Visit Report [facility] Plastic Reconstructive Surgery [address], [address] [place] [address] OFFICE VISIT Date of Service: 02/08/25 MR#: [id number] Acct: [id number] Name: ANNE DUARTE GENA Rep #: [id number] : 1945 Provider: Dr. Sorin Jackson MD Age/Sex: 79/F Location: [place] [address] Status: Signed Intake Vital Signs 02/01/25 13:37 Height 5 ft 1 in Weight: 195 lb BMI 36.8 Comment pt ambulates with cane Intake Visit Reasons: 1 week follow up Chief Complaint: 1 week follow up Is patient in pain?: No Allergies aspirin Allergy (Verified 02/08/25 15:11) Hives codeine Allergy (Verified 02/08/25 15:11) Hives Sulfa (Sulfonamide Antibiotics) Allergy (Verified 02/08/25 15:11) Hives Medications ???Medication ???Instructions ???Recorded ???Confirmed ???Type Omeprazole [Prilosec] 40 mg PO DAILY 10/21/14 02/08/25 H istory cholecalciferol (vitamin D3) 25 25 mcg PO DAILY 07/27/21 02/08/25 History mcg (1,000 unit) capsule conjugated estrogens 0.625 mg/gram 1.25 mg vaginal QWEEK 07/27/21 0 02/08/25 History vaginal cream (Premarin) methotrexate sodium 2.5 mg tablet See Rx Instructions .Route .COMPL EX 07/27/21 02/08/25 History nortriptyline 25 mg capsule 25 mg PO QHS 07/27/21 02/08/25 His tory zinc 50 mg tablet 50 mg PO QODAY 07/27/21 02/08/25 H istory latanoprost 0.005 % eye drops 1 drp EACH EYE QHS 08/20/21 History loratadine 10 mg tablet 10 mg PO DAILY 08/20/21 02/08/25 H istory Lactobacillus acidophilus and 1 cap PO DAILY 10/31/22 02/08/25 H istory rhamnosus 15 billion cell capsule (Probiotic) losartan 50 mg tablet 50 mg PO QDAY 04/19/24 02/08/25 Hi story Potassium 1 tab PO 3XW LOW K+ 07/01/2402/08 History calcium carbonate (Calcium 600) 600 mg PO DAILY 07/01/24 02/08/25 History cranberry extract 500 mg capsule 500 mg PO QDAY 07/01/24 02/08/25 H istory docusate sodium 50 mg capsule 50 mg PO QDAY 07/01/24 02/08/25 Hi story (Stool Softener) folic acid 1 mg tablet 2 mg PO BID 07/01/24 02/08/25 Hist ory tramadol 50 mg tablet 50 mg PO TID PRN 07/01/24 02/08/25 History balsalazide 750 mg capsule 750 mg PO BID #180 caps 09/17/24 0 02/08/25 Rx tramadol 50 mg tablet 50 mg PO Q8H PRN pain 5 days #15 0 01/28/25 02/08/25 Rx tabs ketoconazole 2 % topical cream applic topical BID 02/01/25 History Have you fallen in the past year?: Yes PFSH Medical History Fracture of right orbital floor Hypertension Thyroid nodule Goiter Fatigue Mass of right [...] physical activity do you participate in: none additional social history: pt denies vaping, denies edibles, denies marijuana use, denies aspirin and ibuprofen use, denies family history of blood clots/disorders HPI 1 week follow up Details: HPI 01 FEB 2025: Patient is a 79-year-old female with history of ulcerative colitis, GERD, ruptured cerebral aneurysm status post coiling and arthritis presenting for evaluation after mechanical fall while gardening on 01/28. She hit her head and the top of her glasses broke but she denied loss of consciousness. She's not on any blood thinners. She underwent trauma work up at the ED and was found to have right orbital floor fracture and her right forehead laceration was repaired. Brain CT and cervical spine CT was negative for acute injuries. She presents today with her daughter. She saw her eye doctor yesterday and states everything was ok. She notes double vision when looking at the TV and her glassess is still broken. She does not have double vision currently during her visit. She does have follow up with her PCP for suture removal this Friday. She denies facial numbness, tingling, nausea, vomiting. Daughter notes since her aneurysm years ago she's lost peripheral vision on both sides right worse than left. CURRENT ENCOUNTER, Jan (more content not included)... Normal [facility] Plastic Surgery Visit Report on 02-01-2025 Plastic Surgery Visit Report [facility] Plastic Reconstructive Surgery [address], [address] [place] [address] OFFICE VISIT Date of Service: 02/01/25 MR#: [id number] Acct: [id number] Name: ANNE DUARTE Rep #: [id number] : 1945 Provider: Dr. Sorin Jackson MD Age/Sex: 79/F Location: [facility] Status: Signed Pt seen evaluated w/ALTON. I personally interviewed exam the pt. I was involved in all aspects of pt's orders, interpretation of results treatment I reviewed the CT with the patient. 1 x 1.5 cm gap in orbital floor Assymptomatic on exam (no double vision, no enophthalmos or hypoglobus). Globe cleared by ophthalmology. Plan to follow closely. Discussed risks, benefits, and alternatives to non-operative management. She agreed to plan for monitoring (non-operative) at this time. f/u in 1 week Intake Vital Signs 01/28/25 17:22 02/01/25 13:37 Height 5 ft 5 ft 1 in Weight: 195 lb BMI 36.8 Comment pt ambulates with cane Intake Visit Reasons: ED FU Chief Complaint: ED follow up-fall on friday Accompanied by: Daughter Is patient in pain?: No Allergies aspirin Allergy (Verified 02/01/25 13:39) Hives codeine Allergy (Verified 02/01/25 13:39) Hives Sulfa (Sulfonamide Antibiotics) Allergy (Verified 02/01/25 13:39) Hives Medications ???Medication ???Instructions ???Recorded ???Confirmed ???Type Omeprazole [Prilosec] 40 mg PO DAILY 10/21/14 02/01/25 H istory cholecalciferol (vitamin D3) 25 25 mcg PO DAILY 07/27/21 02/01/25 History mcg (1,000 unit) capsule conjugated estrogens 0.625 mg/gram 1.25 mg vaginal QWEEK 07/27/21 0 02/01/25 History vaginal cream (Premarin) methotrexate sodium 2.5 mg tablet See Rx Instructions .Route .COMPL EX 07/27/21 02/01/25 History nortriptyline 25 mg capsule 25 mg PO QHS 07/27/21 02/01/25 His tory zinc 50 mg tablet 50 mg PO QODAY 07/27/21 02/01/25 H istory latanoprost 0.005 % eye drops 1 drp EACH EYE QHS 08/20/21 History loratadine 10 mg tablet 10 mg PO DAILY 08/20/21 02/01/25 H istory Lactobacillus acidophilus and 1 cap PO DAILY 10/31/22 02/01/25 H istory rhamnosus 15 billion cell capsule (Probiotic) losartan 50 mg tablet 50 mg PO QDAY 04/19/24 02/01/25 Hi story Potassium 1 tab PO 3XW LOW K+ 07/01/2402/01 History calcium carbonate (Calcium 600) 600 mg PO DAILY 07/01/24 02/01/25 History cranberry extract 500 mg capsule 500 mg PO QDAY 07/01/24 02/01/25 H istory docusate sodium 50 mg capsule 50 mg PO QDAY 07/01/24 02/01/25 Hi story (Stool Softener) folic acid 1 mg tablet 2 mg PO BID 07/01/24 02/01/25 Hist ory tramadol 50 mg tablet 50 mg PO TID PRN 07/01/24 02/01/25 History balsalazide 750 mg capsule 750 mg PO BID #180 caps 09/17/24 0 02/01/25 Rx tramadol 50 mg tablet 50 mg PO Q8H PRN pain 5 days #15 0 01/28/25 02/01/25 Rx tabs ketoconazole 2 % topical cream applic topical BID 02/01/25 History Have you fallen in the past year?: Yes (fell on Friday, hit head and eye, sutures) PFSH Medical History (Updated 02/01/25 @ 14:28 by JENNIE Ramos) Fracture of right orbital floor Hypertension Thyroid nodule Goiter Fatigue Mass of right [...] Cancer bladder Mother Heart disease Social History (Updated 02/01/25 @ 13:37 by Millicent Hammonds) Smoking Status: Never smoker alcohol intake: never substance use type: does not use what type of physical activity do you participate in: none additional social history: pt denies vaping, denies edibles, denies marijuana use, denies aspirin and ibuprofen use, denies family history of blood clots/disorders HPI ED FU Details: Patient is a 79-year-old female with history of ulcerative colitis, GERD, ruptured cerebral aneurysm status post coiling and arthritis presenting for evaluation after mechanical fall while gardening on 01/28. She hit her head and the top of her glasses broke but she denied loss of consciousness. She's not on any blood thinners. She underwent trauma work up at the ED and was found to have right orbital floor fracture and her right forehead la (more content not included)... Normal [facility] Absolute lymphocyte countOrd ered By: Sanjana Thomas on 01-31-2025 Lymphocytes Auto (Unsp spec) [#/Vol] 1.40 10*3/uL 0.83-4.51 [facility] Absolute neutrophil countOrd ered By: Sanjana Thomas on 01-31-2025 Neutrophils (Bld) [#/Vol] 2.0 10*3/uL 2.0-7.7 [facility] Anion gap in Serum or Plasma Ordered By: Sanjana Thomas on 01-31-2025 Anion gap [Moles/Vol] 9 mmol/L 5-15 [facility] Automated lymphocyte count a s percentage of total leukocytesOrdered By: Sanjana Thomas on 01-31-2025 Lymphocytes/100 WBC Auto (Unsp spec) 35.5 % 19-41 [facility] BUN/creatinine ratioOrdered By: Sanjana Thomas on 01-31-2025 Urea nitrogen/Creatinine [Mass ratio] 20.9 mg/mg High 10-20 [facility] Basophil percentageOrdered B y: Sanjana Thomas on 01-31-2025 Basophils/100 WBC (Bld) 0.8 % 0-1 [facility] Bilirubin, totalOrdered By: Sanjana Thomas on 01-31-2025 Bilirubin [Mass/Vol] 0.21 mg/dL 0.00-1.30 [facility] CBC W/Diff, Automatedon 01-11 Absolute Lymph 1.40 X10 3/uL Normal 0.83-4.51 [facility] Comment on above: Performed By: #### L 100.0100, L500.4050 ####[facility] [address] [place], [address] Absolute Neut 2.0 X10 3/uL Normal 2.0-7.7 [facility] Comment on above: Performed By: #### L 100.0100, L500.4050 ####[facility] [address] [place], [address] Basophils/100 WBC (Bld) 0.8 % Normal 0-1 [facility] Comment on above: Performed By: #### L 100.0100, L500.4050 ####[facility] [address] [place], [address] Eosinophils/100 WBC (Bld) 1.5 % Normal 0-5 [facility] Comment on above: Performed By: #### L 100.0100, L500.4050 ####[facility] [address] [place], [address] Erythrocyte distribution width (RBC) [Ratio] 15.5 % High 11.6-14.6 [facility] Comment on above: Performed By: #### L 100.0100, L500.4050 ####[facility] [address] [place], [address] Hematocrit (Bld) [Volume fraction] 40.3 % Normal 37-47 [facility] Comment on above: Performed By: #### L 100.0100, L500.4050 ####[facility] [address] [place], [address] Hemoglobin (Bld) [Mass/Vol] 12.6 g/dL Normal 12.0-15.0 [facility] Comment on above: Performed By: #### L 100.0100, L500.4050 ####[facility] [address] [place], [address] IG% 0.300 Normal 0.0-0.9 [facility] Comment on above: Result Comment: IG% - Immature Granulocytes (promyelocytes, myelocytes and metamyelocytes) > 1% indicates that a LEFT SHIFT is Present. Performed By: #### L 100.0100, L500.4050 ####[facility] [address] [place], [address] Lymphocytes/100 WBC (Bld) 35.5 % Normal 19-41 [facility] Comment on above: Performed By: #### L 100.0100, L500.4050 ####[facility] [address] [place], [address] MCH (RBC) [Entitic mass] 30.1 pg Normal 27.0-32.0 [facility] Comment on above: Performed By: #### L 100.0100, L500.4050 ####[facility] [address] [place], [address] MCHC (RBC) [Mass/Vol] 31.3 g/dL Low 32-36 [facility] Comment on above: Performed By: #### L 100.0100, L500.4050 ####[facility] [address] [place], [address] MCV (RBC) [Entitic vol] 96.4 fL Normal 81-99 [facility] Comment on above: Performed By: #### L 100.0100, L500.4050 ####[facility] [address] [place], [address] Monocytes/100 WBC (Bld) 10.2 % High 0-10 [facility] Comment on above: Performed By: #### L 100.0100, L500.4050 ####[facility] [address] [place], [address] Neutrophils/100 WBC (Bld) 51.7 % Normal 47-70 [facility] Comment on above: Performed By: #### L 100.0100, L500.4050 ####[facility] [address] [place], [address] Nucleated RBC (Bld) [#/Vol] 0 10*3/uL Normal 0-5 [facility] Comment on above: Performed By: #### L 100.0100, L500.4050 ####[facility] [address] [place], [address] Platelet mean volume (Bld) [Entitic vol] 10.1 fL Normal 6.2-12.0 [facility] Comment on above: Performed By: #### L 100.0100, L500.4050 ####[facility] [address] [place], [address] Platelets (Bld) [#/Vol] 273 10*3/uL Normal 150-450 [facility] Comment on above: Performed By: #### L 100.0100, L500.4050 ####[facility] [address] [place], [address] RBC (Bld) [#/Vol] 4.18 10*6/uL Low 4.2-5.4 [facility] Comment on above: Performed By: #### L 100.0100, L500.4050 ####[facility] [address] [place], [address] RDW SD 55.8 fl High 35.1-43.9 [facility] Comment on above: Performed By: #### L 100.0100, L500.4050 ####[facility] [address] [place], [address] WBC (Bld) [#/Vol] 3.9 10*3/uL Low 4.4-11.0 [facility] Comment on above: Performed By: #### L 100.0100, L500.4050 ####[facility] [address] [place], [address] Carbon dioxide, total [Moles /volume] in Central venous bloodOrdered By: Sanjana Thomas on 01-31-2025 CO2 [Moles/Vol] 28.4 mmol/L 21.0-32.0 [facility] Chloride assayOrdered By: Jennie Thomas on 01-31-2025 Chloride [Moles/Vol] 101 mmol/L 98-108 [facility] Comprehensive Metabolic Prof ilon 01-31-2025 Albumin [Mass/Vol] 3.7 g/dL Normal 3.4-4.8 [facility] Comment on above: Performed By: #### L 100.0100, L500.4050 ####[facility] [address] [place], [address] Albumin/Globulin [Mass ratio] 1.3 {ratio} Normal 0.9-2.4 [facility] Comment on above: Performed By: #### L 100.0100, L500.4050 ####[facility] [address] [place], [address] ALK PHOS 69 U/L Normal 35-104 [facility] Comment on above: Performed By: #### L 100.0100, L500.4050 ####[facility] [address] [place], [address] ALT [Catalytic activity/Vol] 14 U/L Normal <=34 [facility] Comment on above: Performed By: #### L 100.0100, L500.4050 ####[facility] [address] [place], [address] AST [Catalytic activity/Vol] 25 U/L Normal <=31 [facility] Comment on above: Performed By: #### L 100.0100, L500.4050 ####[facility] [address] [place], [address] Bilirubin [Mass/Vol] 0.21 mg/dL Normal 0.00-1.30 [facility] Comment on above: Performed By: #### L 100.0100, L500.4050 ####[facility] [address] [place], [address] BUN/CRE 20.9 RATIO High 10-20 [facility] Comment on above: Performed By: #### L 100.0100, L500.4050 ####[facility] [address] [place], [address] Calcium [Mass/Vol] 8.8 mg/dL Normal 7.6-11.0 [facility] Comment on above: Performed By: #### L 100.0100, L500.4050 ####[facility] [address] [place], [address] Chloride [Moles/Vol] 101 mmol/L Normal 98-108 [facility] Comment on above: Performed By: #### L 100.0100, L500.4050 ####[facility] [address] [place], [address] CO2 [Moles/Vol] 28.4 mmol/L Normal 21.0-32.0 [facility] Comment on above: Performed By: #### L 100.0100, L500.4050 ####[facility] [address] [place], [address] Creatinine [Mass/Vol] 0.71 mg/dL Normal 0.70-1.20 [facility] Comment on above: Performed By: #### L 100.0100, L500.4050 ####[facility] [address] [place], [address] GAP 9 Normal 5-15 [facility] Comment on above: Performed By: #### L 100.0100, L500.4050 ####[facility] [address] [place], [address] GFR/1.73 sq M.predicted among non-blacks MDRD (S/P/Bld) [Vol rate/Area] 87 mL/min/{1.73_m2} Normal >60 [facility] Comment on above: Result Comment: mL/m in/1.73m2 CKD-EPI Creatinine Equation (2020) Performed By: #### L 100.0100, L500.4050 ####[facility] [address] [place], [address] Globulin (S) [Mass/Vol] 2.9 g/dL Normal 2.2-4.2 [facility] Comment on above: Performed By: #### L 100.0100, L500.4050 ####[facility] [address] [place], [address] Glucose [Mass/Vol] 85 mg/dL Normal 70-99 [facility] Comment on above: Performed By: #### L 100.0100, L500.4050 ####[facility] [address] [place], [address] Potassium [Moles/Vol] 4.1 mmol/L Normal 3.3-5.1 [facility] Comment on above: Performed By: #### L 100.0100, L500.4050 ####[facility] [address] [place], [address] Sodium [Moles/Vol] 138 mmol/L Normal 133-145 [facility] Comment on above: Performed By: #### L 100.0100, L500.4050 ####[facility] [address] [place], [address] T PROT 6.6 g/dL Normal 5.9-8.4 [facility] Comment on above: Performed By: #### L 100.0100, L500.4050 ####[facility] [address] [place], [address] Urea nitrogen [Mass/Vol] 15 mg/dL Normal 4-19 [facility] Comment on above: Performed By: #### L 100.0100, L500.4050 ####[facility] [address] [place], [address] Eosinophil percentageOrdered By: Sanjana Thomas on 01-31-2025 Eosinophils/100 WBC (Bld) 1.5 % 0-5 [facility] Erythrocyte distribution wid th ratioOrdered By: Sanjana Thomas on 01-31-2025 Erythrocyte distribution width (RBC) [Ratio] 15.5 % High 11.6-14.6 [facility] Erythrocyte distribution wid th standard deviationOrdered By: Sanjana Thomas on 01-31-2025 Erythrocyte distribution width (RBC) [Ratio] 55.8 fl High 35.1-43.9 [facility] Glomerular filtration rate ( GFR) estimation/1.73 sq m using serum, plasma, or whole bOrdered By: Sanjana Thomas on 01-31-2025 GFR/1.73 sq M.predicted among non-blacks MDRD (S/P/Bld) [Vol rate/Area] 87 mL/min/{1.73_m2} >60 [facility] Comment on above: mL/min/1.73m2 CKD-EP I Creatinine Equation (2020) Hematocrit Auto (Bld) [Volum e fraction]Ordered By: Sanjana Thomas on 01-31-2025 Hematocrit (Bld) [Volume fraction] 40.3 % 37-47 [facility] Hemoglobin measurementOrdere d By: Sanjana Thomas on 01-31-2025 Hemoglobin (Bld) [Mass/Vol] 12.6 g/dL 12.0-15.0 [facility] Immature granulocytes/100 WB C Auto (Bld)Ordered By: Sanjana Thomas on 01-31-2025 Immature granulocytes/100 WBC (Bld) 0.300 % 0.0-0.9 [facility] Comment on above: IG% - Immature Granu locytes (promyelocytes, myelocytes and metamyelocytes) > 1% indicates that a LEFT SHIFT is Present. Laboratory - Chemistry and C hemistry - challengeOrdered By: Sanjana Thomas on 01-31-2025 AST [Catalytic activity/Vol] 25 U/L <32 [facility] MCV (mean corpuscular volume ) determinationOrdered By: Sanjana Thomas on 01-31-2025 MCV (RBC) [Entitic vol] 96.4 fL 81-99 [facility] Mean corpuscular hemoglobin (MCH) determinationOrdered By: Sanjana Thomas on 01-31-2025 MCH (RBC) [Entitic mass] 30.1 pg 27.0-32.0 [facility] Mean corpuscular hemoglobin concentration (MCHC) determinationOrdered By: Sanjana Thomas on 01-31-2025 MCHC (RBC) [Mass/Vol] 31.3 g/dL Low 32-36 [facility] Mean platelet volume determi nationOrdered By: Sanjana Thomas on 01-31-2025 Platelet mean volume (Bld) [Entitic vol] 10.1 fL 6.2-12.0 [facility] Monocyte percentageOrdered B y: Sanjana Thomas on 01-31-2025 Monocytes/100 WBC (Bld) 10.2 % High 0-10 [facility] Neutrophil percentageOrdered By: Sanjana Thomas on 01-31-2025 Neutrophils/100 WBC (Bld) 51.7 % 47-70 [facility] Nucleated red blood cell per centageOrdered By: Sanjana Thomas on 01-31-2025 Nucleated RBC/100 WBC (Bld) [Ratio] 0 % 0-5 [facility] Platelet countOrdered By: Jennie Thomas on 01-31-2025 Platelets (Bld) [#/Vol] 273 10*3/uL 150-450 [facility] Potassium measurement (mass/ volume)Ordered By: Sanjana Thomas on 01-31-2025 Potassium (Unsp spec) [Mass/Vol] 4.1 mmol/L 3.3-5.1 [facility] RBC Auto (Bld) [#/Vol]Ordere d By: Sanjana Thomas on 01-31-2025 RBC (Bld) [#/Vol] 4.18 10*6/uL Low 4.2-5.4 [facility] Serum creatinine measurement (mass/volume)Ordered By: Sanjana Thomas on 01-31-2025 Creatinine [Mass/Vol] 0.71 mg/dL 0.70-1.20 [facility] Serum globulin measurementOr dered By: Sanjana Thomas on 01-31-2025 Globulin (S) [Mass/Vol] 2.9 g/dL 2.2-4.2 [facility] Serum glucose measurement (m ass/volume)Ordered By: Sanjana Thomas on 01-31-2025 Glucose [Mass/Vol] 85 mg/dL 70-99 [facility] Serum or plasma alanine solitario otransferase (ALT) measurementOrdered By: Sanjana Thomas on 01-31-2025 ALT [Catalytic activity/Vol] 14 U/L <35 [facility] Serum or plasma albumin cesilia urement (mass/volume)Ordered By: Sanjana Thomas on 01-31-2025 Albumin [Mass/Vol] 3.7 g/dL 3.4-4.8 [facility] Serum or plasma albumin/glob ulin mass ratioOrdered By: Sanjana Thomas on 01-31-2025 Albumin/Globulin [Mass ratio] 1.3 {ratio} 0.9-2.4 [facility] Serum or plasma alkaline liv sphatase measurementOrdered By: Sanjana Thomas 01-31-2025 ALP [Catalytic activity/Vol] 69 U/L 35-104 [facility] Serum or plasma calcium cesilia urement (mass/volume)Ordered By: Sanjana Thomas on 01-31-2025 Calcium [Mass/Vol] 8.8 mg/dL 7.6-11.0 [facility] Serum or plasma urea nitroge n measurement (mass/volume)Ordered By: Sanjana Thomas on 01-31-2025 Urea nitrogen [Mass/Vol] 15 mg/dL 4- [facility] Sodium levelOrdered By: Alvarez velez William on 01-31-2025 Sodium [Moles/Vol] 138 mmol/L 133-145 [facility] Total proteinOrdered By: Eitan aceves Ramonerachelnusrat on 01-31-2025 Protein [Mass/Vol] 6.6 g/dL 5.9-8.4 [facility] White blood cell (WBC) count Ordered By: Sanjana William on 01-31-2025 WBC (Bld) [#/Vol] 3.9 10*3/uL Low 4.4-11.0 [facility] Brain/Head without Contrasto n 01-28-2025 Brain/Head without Contrast [facility] Imaging Services [address] [place] [address] Brain/Head without Contrast MR#: [id number] Acct: [id number] Name: ANNE DUARTE GENA Rep #: [id number] : 1945 F 79 From: Robert High MD PCP: Dr. Shannan Pressley MD Status: REG ER Study: Brain/Head without Contrast Date of Exam: 01/10 02/03 Exam# [id number] Ordering Dr: Elma Davey DO EXAM: CT BRAIN/HEAD; SINUS/FACIAL BONE; SPINE CERVICAL WITHOUT CONTRAST CLINICAL HISTORY: TRAUMA, fall COMPARISON: CT neck 10/27/2024. CT head 09/03/2023. TECHNIQUE: Noncontrast CT images of the head, maxillofacial structures, and cervical spine with multiplanar reconstructions. Dose reduction techniques were used including intermediate exposure control (AEC),iterative reconstruction technique, and/or mA and/or KV dose adjustments based on patient's size. FINDINGS: HEAD/FACE: No acute intracranial hemorrhage, extra-axial collection, mass effect or evidence of acute infarct. Mild generalized brain parenchymal volume loss, and moderate chronic small-vessel ischemic changes in the supratentorial white matter. Chronic encephalomalacia/gliosis in the anterior inferior right frontal lobe. 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 Postoperative changes of prior right frontal craniotomy and bifrontal yuri holes, with metallic fixation to the lateral right orbital rim. No acute skull base or calvarial fracture. No mastoid effusions. Acute displaced right orbital floor blow-out fracture. Inferior herniation of right extraconal intraorbital fat, but no evidence for herniation or impingement of the extraocular musculature. Small amount of amorphous hemorrhage along the right orbital floor, no intraorbital emphysema. Hemorrhage within the right maxillary sinus. No additional acute maxillofacial fracture is seen. CERVICAL SPINE: No acute fracture or subluxation. Straightening of the cervical lordosis is likely positional and/or degenerative in nature. Multilevel spondylotic changes with varying degrees of disc space narrowing, small Schmorl's nodes and/or subchondral cysts, anterior osteophytosis, uncovertebral spurring and hypertrophic facet arthropathy. No prevertebral soft tissue swelling. Mild atherosclerotic vascular calcifications. 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 CT/Brain/Head without Contrast IMPRESSION: 1. Acute displaced right orbital floor blow-out fracture, as described above. 2. No acute intracranial abnormality. 3. Moderate chronic small-vessel ischemic changes with chronic encephalomalacia/gliosis in the anteroinferior right frontal lobe. 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 4. No acute cervical spine fracture or malalignment. Mild spondylotic changes. 5. 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 Reading Location: [facility] CC: Dr. Shannan Pressley MD; Dr. Elma Davey DO Die Trouble Shooter: Signed Normal [facility] Emergency Department Summary on 01-28-2025 Emergency Department Summary [facility] Medical Records Department [address] [place] [address] Emergency Department Summary 01/28/25 MR#: [id number] Acct: [id number] Name: ANNE DUARTE Rep #: [id number] : 1945 79 From: Elma Davey DO PCP: Dr. Shannan Pressley MD Status:REG ER Location: ED HPI History of Present Illness Chief Complaint: Fall Informant: patient Narrative Narrative: Patient is a 79-year-old female with history of ulcerative colitis, GERD, ruptured cerebral aneurysm status post coiling and arthritis presenting for evaluation after mechanical fall. Patient states he tripped on some uneven stones and fell. She tried to catch herself but did hit her head. She is not sure if she hit her head on the ground or her glasses hit her head. She sustained a laceration above her right eyebrow. Denies any associated loss of conscious. On any blood thinners. Did also hit her left knee mildly. Is unsure when her last tetanus was. Denies any associate numbness or tingling. Is otherwise been in her normal state of health. No other complaints or concerns at this time. Tetanus Immunization: Unknown [facility] Medical History Thyroid nodule Goiter Fatigue Mass of right side of neck Brain aneurysm Rash Restless legs Rheumatoid arthritis History of rheumatic fever Wears glasses Post-menopausal Back pain Migraine headache Gastric reflux Non-smoker Shortness of breath on exertion Leg cramps History of pain when walking GERD (gastroesophageal reflux disease) Arthritis Rectal bleeding Home Medications ???Medication ???Instructions ???Recorded ???Last Taken ???Type Omeprazole [Prilosec] 40 mg PO DAILY 10/21/14 Unknown Hi story cholecalciferol (vitamin D3) 25 25 mcg PO DAILY 07/27/21 Unknown H istory mcg (1,000 unit) capsule conjugated estrogens 0.625 mg/gram 1.25 mg vaginal QWEEK 07/27/21 U nknown History vaginal cream (Premarin) methotrexate sodium 2.5 mg tablet See Rx Instructions .Route .COMPL EX 07/27/21 Unknown History nortriptyline 25 mg capsule 25 mg PO QHS 07/27/21 Unknown Hist ory zinc 50 mg tablet 50 mg PO QODAY 07/27/21 Unknown Hi story latanoprost 0.005 % eye drops 1 drp EACH EYE QHS 08/20/21 Unknow n History loratadine 10 mg tablet 10 mg PO DAILY 08/20/21 Unknown Hi story Lactobacillus acidophilus and 1 cap PO DAILY 10/31/22 Unknown Hi story rhamnosus 15 billion cell capsule (Probiotic) losartan 50 mg tablet 50 mg PO QDAY 04/19/24 Unknown His tory Potassium 1 tab PO 3XW LOW K+ 07/01/24 Unkno wn History calcium carbonate (Calcium 600) 600 mg PO DAILY 07/01/24 Unknown H istory cranberry extract 500 mg capsule 500 mg PO QDAY 07/01/24 Unknown Hi story docusate sodium 50 mg capsule 50 mg PO QDAY 07/01/24 Unknown His tory (Stool Softener) folic acid 1 mg tablet 2 mg PO BID 07/01/24 Unknown Histo ry tramadol 50 mg tablet 50 mg PO TID PRN 07/01/24 Unknown History balsalazide 750 mg capsule 750 mg PO BID #180 caps 09/17/24 U nknown Rx tramadol 50 mg tablet 50 mg PO Q8H PRN pain 5 days #15 0 01/28/25 Unknown Rx tabs Allergy/AdvReac Type Severity Reaction Status Date / Time aspirin Allergy Unknown Verified 01/28/25 17:22 codeine Allergy Unknown Verified 01/28/25 17:22 Sulfa (Sulfonamide Allergy Unknown Verified 01/28/25 17:22 Antibiotics) Family History Father Cancer bladder Mother Heart disease Surgical History Hx of brain surgery Hx of total hip arthroplasty Hx of bladder repair surgery Hx of breast biopsy Hx of arthroscopic knee surgery Hx of arthroscopy of shoulder Hx of appendectomy Hx of hysterectomy Social History Smoking Status: Never smoker alcohol intake: never substance use type: does not use what type of physical activity do you participate in: none ROS ROS ED Constitutional Constitutional ED: Denies chills or fever(s) Eyes Eyes: Denies change in vision ENT ENT ED: Denies rhinorrhea or sore throat Cardiovascular Cardiovascular: Denies chest pain Respiratory/Chest Respiratory/Chest: Denies cough Gastrointestinal Gastrointestinal: Denies nausea or vomiting Musculoskeletal Musculoskeletal: Denies arthralgias or myalgias Integumentary Reports other Details: Laceration to the right eyebrow Neurologic Neurologic: Reports headache(s); Denies paresthesias or weakness Hematologic/Lymphatic Hematologic/Lymphatic: Denies easy bleeding or easy bruising EXAM Physical Exam Const Vital Signs: 01/28/25 17:22 01/28/25 17:57 01/28/25 18:00 Temperature 98.1 F Temperature Source Oral (more content not included)... Normal [facility] Sinus/Facial Boneon 01-29-20 Sinus/Facial Bone [facility] Imaging Services [address] [place], [place] [id number] Sinus/Facial Bone MR#: [id number] Acct: [id number] Name: ANNE DUARTE GENA Rep #: [id number] : 1945 F 79 From: Robert High MD PCP: Dr. Shannan Pressley MD Status: REG ER Study: Sinus/Facial Bone Date of Exam: 01/28/25 Exam# [id number] Ordering Dr: Elma Davey DO EXAM: CT BRAIN/HEAD; SINUS/FACIAL BONE; SPINE CERVICAL WITHOUT CONTRAST CLINICAL HISTORY: TRAUMA, fall COMPARISON: CT neck 10/27/2024. CT head 09/03/2023. TECHNIQUE: Noncontrast CT images of the head, maxillofacial structures, and cervical spine with multiplanar reconstructions. Dose reduction techniques were used including intermediate exposure control (AEC),iterative reconstruction technique, and/or mA and/or KV dose adjustments based on patient's size. FINDINGS: HEAD/FACE: No acute intracranial hemorrhage, extra-axial collection, mass effect or evidence of acute infarct. Mild generalized brain parenchymal volume loss, and moderate chronic small-vessel ischemic changes in the supratentorial white matter. Chronic encephalomalacia/gliosis in the anterior inferior right frontal lobe. 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 Postoperative changes of prior right frontal craniotomy and bifrontal yuri holes, with metallic fixation to the lateral right orbital rim. No acute skull base or calvarial fracture. No mastoid effusions. Acute displaced right orbital floor blow-out fracture. Inferior herniation of right extraconal intraorbital fat, but no evidence for herniation or impingement of the extraocular musculature. Small amount of amorphous hemorrhage along the right orbital floor, no intraorbital emphysema. Hemorrhage within the right maxillary sinus. No additional acute maxillofacial fracture is seen. CERVICAL SPINE: No acute fracture or subluxation. Straightening of the cervical lordosis is likely positional and/or degenerative in nature. Multilevel spondylotic changes with varying degrees of disc space narrowing, small Schmorl's nodes and/or subchondral cysts, anterior osteophytosis, uncovertebral spurring and hypertrophic facet arthropathy. No prevertebral soft tissue swelling. Mild atherosclerotic vascular calcifications. 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 CT/Sinus/Facial Bone IMPRESSION: 1. Acute displaced right orbital floor blow-out fracture, as described above. 2. No acute intracranial abnormality. 3. Moderate chronic small-vessel ischemic changes with chronic encephalomalacia/gliosis in the anteroinferior right frontal lobe. 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 4. No acute cervical spine fracture or malalignment. Mild spondylotic changes. 5. 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 Reading Location: [facility] CC: Dr. Shannan Pressley MD; Dr. Elma aDvey DO Die Trouble Shooter: Signed Normal [facility] Spine Cervical without Contr ason 01-28-2025 Spine Cervical without Contras [facility] Imaging Services [address] [place], [place] [id number] Spine Cervical without Contras MR#: [id number] Acct: [id number] Name: ANNE DUARTE GENA Rep #: [id number] : 1945 F 79 From: Robert High MD PCP: Dr. Shannan Pressley MD Status: REG ER Study: Spine Cervical without Contras Date of Exam: 0 01/28/25 Exam# [id number] Ordering Dr: Elma Davey DO EXAM: CT BRAIN/HEAD; SINUS/FACIAL BONE; SPINE CERVICAL WITHOUT CONTRAST CLINICAL HISTORY: TRAUMA, fall COMPARISON: CT neck 10/27/2024. CT head 09/03/2023. TECHNIQUE: Noncontrast CT images of the head, maxillofacial structures, and cervical spine with multiplanar reconstructions. Dose reduction techniques were used including intermediate exposure control (AEC),iterative reconstruction technique, and/or mA and/or KV dose adjustments based on patient's size. FINDINGS: HEAD/FACE: No acute intracranial hemorrhage, extra-axial collection, mass effect or evidence of acute infarct. Mild generalized brain parenchymal volume loss, and moderate chronic small-vessel ischemic changes in the supratentorial white matter. Chronic encephalomalacia/gliosis in the anterior inferior right frontal lobe. 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 Postoperative changes of prior right frontal craniotomy and bifrontal yuri holes, with metallic fixation to the lateral right orbital rim. No acute skull base or calvarial fracture. No mastoid effusions. Acute displaced right orbital floor blow-out fracture. Inferior herniation of right extraconal intraorbital fat, but no evidence for herniation or impingement of the extraocular musculature. Small amount of amorphous hemorrhage along the right orbital floor, no intraorbital emphysema. Hemorrhage within the right maxillary sinus. No additional acute maxillofacial fracture is seen. CERVICAL SPINE: No acute fracture or subluxation. Straightening of the cervical lordosis is likely positional and/or degenerative in nature. Multilevel spondylotic changes with varying degrees of disc space narrowing, small Schmorl's nodes and/or subchondral cysts, anterior osteophytosis, uncovertebral spurring and hypertrophic facet arthropathy. No prevertebral soft tissue swelling. Mild atherosclerotic vascular calcifications. 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 CT/Spine Cervical without Contras IMPRESSION: 1. Acute displaced right orbital floor blow-out fracture, as described above. 2. No acute intracranial abnormality. 3. Moderate chronic small-vessel ischemic changes with chronic encephalomalacia/gliosis in the anteroinferior right frontal lobe. 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 4. No acute cervical spine fracture or malalignment. Mild spondylotic changes. 5. 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 Reading Location: [facility] CC: Dr. Shannan Pressley MD; Dr. Elma Davey DO Die Trouble Shooter: Signed Normal [facility] Surgery Visit Reporton 01-13 Surgery Visit Report [facility] [address] [place] [address] OFFICE VISIT Date of Service: 01/13/25 MR#: [id number] Acct: [id number] Name: ANNE DUARTE Rep #: [id number] : 1945 Provider: Dr. 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 Normal [facility] Neurology Visit Reporton Neurology Visit Report [facility] [address], [address] [place] [address] OFFICE VISIT Date of Service: 12/27/24 MR#: [id number] Acct: [id number] Name: ANNE DUARTE GENA Rep #: [id number] : 1945 Provider: Dr. Deangelo melendez MD Age/Sex: 79/F Location: [facility] Status: Signed HPI HPI Chief Complaint: [...] bifurcation of the middle cerebral artery). A TAKE UP SUPERVISOR shunt was placed for period of time [...] noted within recent months. She sees a healthcare or medical for rheumatoid arthritis and is on methotrexate. [...] No hemodynamically significant stenosis. 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 BASILAR ARTERY: No hemodynamically significant stenosis. VERTEBRAL ARTERIES: No hemodynamically significant stenosis. BRAIN PARENCHYMA: No intra- or extra-axial hemorrhage. No evidence of acute infarct. No intracranial mass or mass effect. There is preservation of the isas/white matter interface. Posterior fossa structures are unremarkable. [...] a history of cerebral aneurysm rupture in 2014 for which she underwent surgical clipping. She also had a TAKE UP SUPERVISOR shunt placed, which was then subseque (more content not included)... Normal [facility] Non-gynecologic cytology rep ortOrdered By: Yulissa Segura on 12-08-2024 Study report [facility] Special Stain Group IIon Special Stain Group II Patient Age/Sex Location Account Attending Physician ANNE DUARTE GENA 79/F [facility] [id number] Dr. Davie Mckeon MD Specimen: [id number] Received: 12/07/24 Status: HARSHAL Riddlemarisa Num: [id number] Spec Type: Fluid Subm Dr: Dr. Davie [...] for cytology and cytospin. Mr 12/07/2024 CPT: 72994,92341 Signed (signature on file) Dr. Yulissa Segura, 12/08/24 1146 Normal [facility] Comment on above: Performed By: #### P SSII #### [facility] Laboratory [address] [place], [address] Surgery Visit Reporton 12-07 Surgery Visit Report [facility] [address] [place] [address] OFFICE VISIT Date of Service: 12/07/24 MR#: [id number] Acct: [id number] Name: ANNE DUARTE Rep #: [id number] : 1945 Provider: Dr. Davie richard MD Age/Sex: 79/F Location: [facility] Status: Signed Intake Vital Signs 11/08/24 08:26 [...] Cancer bladder Mother Heart disease Social History (Reviewed 11/08/24 @ 08:28 by Hilary Allred Smoking Status: Never smoker alcohol intake: never [...] in her (more content not included)... Normal [facility] Breast imaging reportOrdered By: Ngoc López on 11-17-2024 Study report [facility] Imaging Services [address], [place] [address] SCRN MAMM (CAD)W/JINNY BILAT MR#: [id number] Acct: [id number] Name: ANNE DUARTE GENA Rep #: [id number] : 1945 F 78 From: Araceli López MD PCP: Dr. Shannan Pressley MD Status: REG CL I Study:SCRN MAMM (CAD)W/JINNY BILAT Date of Exa m: 11/17/24 Exam# [id number] Ordering Dr: Kristina Richard MD EXAM: SCRN [...] be mailed to the patient. Reading Location: [facility] CC: Dr. Kristina Richard MD; Dr. Shannan Pressley MD ~ Die Trouble Shooter: Signed [facility] SCRN MAMM (CAD)W/JINNY BILATo n 11-17-2024 SCRN MAMM (CAD)W/JINNY BILAT [facility] Imaging Services [address] [place] [id number] SCRN MAMM (CAD)W/JINNY BILAT MR#: [id number] Acct: [id number] Name: ANNE DUARTE GENA Rep #: [id number] : 1945 F 78 From: Ngoc López MD PCP: Dr. Shannan Pressley MD Status: REG CLI Study: SCRN MAMM (CAD)W/JINNY BILAT Date of Exam: 02/03 Exam# [id number] Ordering Dr: Kristina Richard MD EXAM: SCRN [...] be mailed to the patient. Reading Location: [id number] CC: Dr. Kristina Richard MD; Dr. Shannan Pressley MD Die Trouble Shooter: Signed Normal [facility] Surgery Visit Reporton 11-08 Surgery Visit Report [facility] [address] [place] [address]. [address] [place] [address] OFFICE VISIT Date of Service: 11/08/24 MR#: [id number] Acct: [id number] Name: ANNE DUARTE Rep #: [id number] : 1945 Provider: Dr. Davie richard MD Age/Sex: 78/F Location: [facility] Status: Signed Intake Vital Signs 09/30/24 13:42 11/08/24 08:26 Height 5 ft 5 ft Weight: 195 lb BMI 38.0 BP 169/118 H 142/68 H Blood Pressure Location Rt brachial Rt radial Position Sitting Sitting Respiration 18 16 Intake Visit Reasons: REVIEW CT DISCUSS SX Chief Complaint: thyroid biopsy Crane Engineer Required: No Is patient in pain?: [...] Additionally, their (more content not included)... Normal [facility] Absolute lymphocyte countOrd ered By: Sanjana Thomas on 11-01-2024 Lymphocytes Auto (Unsp spec) [#/Vol] 1.11 10*3/uL 0.83-4.51 [facility] Absolute neutrophil countOrd ered By: Sanjana Thomas on 11-01-2024 Neutrophils (Bld) [#/Vol] 1.9 10*3/uL Low 2.0-7.7 [facility] Anion gap in Serum or Plasma Ordered By: Sanjana Thomas on 11-01-2024 Anion gap [Moles/Vol] 11 mmol/L 5-15 [facility] Automated lymphocyte count a s percentage of total leukocytesOrdered By: Sanjana Thomas on 11-01-2024 Lymphocytes/100 WBC Auto (Unsp spec) 32.2 % - [facility] BUN/creatinine ratioOrdered By: Sanjana Thomas on 11-01-2024 Urea nitrogen/Creatinine [Mass ratio] 18.9 mg/mg 10- [facility] Basophil percentageOrdered B y: Sanjana Thomas on 11-01-2024 Basophils/100 WBC (Bld) 1.2 % High 0-1 [facility] Bilirubin, totalOrdered By: Sanjana Thomas on 11-01-2024 Bilirubin [Mass/Vol] 0.31 mg/dL 0.00-1.30 [facility] CBC W/Diff, Automatedon 10-11 Absolute Lymph 1.11 X10 3/uL Normal 0.83-4.51 [facility] Comment on above: Performed By: #### L 500.4050, L100.0100 #### [facility] Laboratory [address] [place], [address] Absolute Neut 1.9 X10 3/uL Low 2.0-7.7 [facility] Comment on above: Performed By: #### L 500.4050, L100.0100 #### [facility] [address] [place], [address] Basophils/100 WBC (Bld) 1.2 % High 0-1 [facility] Comment on above: Performed By: #### L 500.4050, L100.0100 #### [facility] [address] [place], [address] Eosinophils/100 WBC (Bld) 1.4 % Normal 0-5 [facility] Comment on above: Performed By: #### L 500.4050, L100.0100 #### [facility] [address] [place], [address] Erythrocyte distribution width (RBC) [Ratio] 15.1 % High 11.6-14.6 [facility] Comment on above: Performed By: #### L 500.4050, L100.0100 #### [facility] [address] [place], [address] Hematocrit (Bld) [Volume fraction] 42.2 % Normal 37-47 [facility] Comment on above: Performed By: #### L 500.4050, L100.0100 #### [facility] [address] [place], [address] Hemoglobin (Bld) [Mass/Vol] 12.8 g/dL Normal 12.0-15.0 [facility] Comment on above: Performed By: #### L 500.4050, L100.0100 #### [facility] [address] [place], [address] IG% 0.300 Normal 0.0-0.9 [facility] Comment on above: Result Comment: IG% - Immature Granulocytes (promyelocytes, myelocytes and metamyelocytes) > 1% indicates that a LEFT SHIFT is Present. Performed By: #### L 500.4050, L100.0100 #### [facility] [address] [place], [address] Lymphocytes/100 WBC (Bld) 32.2 % Normal 19-41 [facility] Comment on above: Performed By: #### L 500.4050, L100.0100 #### [facility] [address] [place], [address] MCH (RBC) [Entitic mass] 29.9 pg Normal 27.0-32.0 [facility] Comment on above: Performed By: #### L 500.4050, L100.0100 #### [facility] [address] [place], [address] MCHC (RBC) [Mass/Vol] 30.3 g/dL Low 32-36 [facility] Comment on above: Performed By: #### L 500.4050, L100.0100 #### [facility] [address] [place], [address] MCV (RBC) [Entitic vol] 98.6 fL Normal 81-99 [facility] Comment on above: Performed By: #### L 500.4050, L100.0100 #### [facility] [address] [place], [address] Monocytes/100 WBC (Bld) 10.4 % High 0-10 [facility] Comment on above: Performed By: #### L 500.4050, L100.0100 #### [facility] [address] [place], [address] Neutrophils/100 WBC (Bld) 54.5 % Normal 47-70 [facility] Comment on above: Performed By: #### L 500.4050, L100.0100 #### [facility] [address] [place], [address] Nucleated RBC (Bld) [#/Vol] 0 10*3/uL Normal 0-5 [facility] Comment on above: Performed By: #### L 500.4050, L100.0100 #### [facility] [address] [place], [address] Platelet mean volume (Bld) [Entitic vol] 10.9 fL Normal 6.2-12.0 [facility] Comment on above: Performed By: #### L 500.4050, L100.0100 #### [facility] [address] [place], [address] Platelets (Bld) [#/Vol] 261 10*3/uL Normal 150-450 [facility] Comment on above: Performed By: #### L 500.4050, L100.0100 #### [facility] [address] [place], [address] RBC (Bld) [#/Vol] 4.28 10*6/uL Normal 4.2-5.4 [facility] Comment on above: Performed By: #### L 500.4050, L100.0100 #### [facility] [address] [place], [address] RDW SD 54.3 fl High 35.1-43.9 [facility] Comment on above: Performed By: #### L 500.4050, L100.0100 #### [facility] [address] [place], [address] WBC (Bld) [#/Vol] 3.5 10*3/uL Low 4.4-11.0 [facility] Comment on above: Performed By: #### L 500.4050, L100.0100 #### [facility] [address] [place], [address] Carbon dioxide, total [Moles /volume] in Central venous bloodOrdered By: Sanjana Thomas on 11-01-2024 CO2 [Moles/Vol] 27.7 mmol/L 21.0-32.0 [facility] Chloride assayOrdered By: Jennie Thomas on 11-01-2024 Chloride [Moles/Vol] 103 mmol/L 98-108 [facility] Comprehensive Metabolic Prof ilon 11-01-2024 Albumin [Mass/Vol] 3.7 g/dL Normal 3.4-4.8 [facility] Comment on above: Performed By: #### L 500.4050, L100.0100 #### [facility] [address] [place], [address] Albumin/Globulin [Mass ratio] 1.3 {ratio} Normal 0.9-2.4 [facility] Comment on above: Performed By: #### L 500.4050, L100.0100 #### [facility] [address] [place], [address] ALK PHOS 74 U/L Normal 35-104 [facility] Comment on above: Performed By: #### L 500.4050, L100.0100 #### [facility] [address] [place], [address] ALT [Catalytic activity/Vol] 11 U/L Normal <=34 [facility] Comment on above: Performed By: #### L 500.4050, L100.0100 #### [facility] [address] [place], [address] AST [Catalytic activity/Vol] 18 U/L Normal <=31 [facility] Comment on above: Performed By: #### L 500.4050, L100.0100 #### [facility] [address] [place], [address] Bilirubin [Mass/Vol] 0.31 mg/dL Normal 0.00-1.30 [facility] Comment on above: Performed By: #### L 500.4050, L100.0100 #### [facility] [address] [place], [address] BUN/CRE 18.9 RATIO Normal 10-20 [facility] Comment on above: Performed By: #### L 500.4050, L100.0100 #### [facility] [address] [place], [address] Calcium [Mass/Vol] 8.8 mg/dL Normal 7.6-11.0 [facility] Comment on above: Performed By: #### L 500.4050, L100.0100 #### [facility] [address] [place], [address] Chloride [Moles/Vol] 103 mmol/L Normal 98-108 [facility] Comment on above: Performed By: #### L 500.4050, L100.0100 #### [facility] [address] [place], [address] CO2 [Moles/Vol] 27.7 mmol/L Normal 21.0-32.0 [facility] Comment on above: Performed By: #### L 500.4050, L100.0100 #### [facility] [address] [place], [address] Creatinine [Mass/Vol] 0.64 mg/dL Low 0.70-1.20 [facility] Comment on above: Performed By: #### L 500.4050, L100.0100 #### [facility] [address] [place], [address] GAP 11 Normal 5-15 [facility] Comment on above: Performed By: #### L 500.4050, L100.0100 #### [facility] [address] [place], [address] GFR/1.73 sq M.predicted among non-blacks MDRD (S/P/Bld) [Vol rate/Area] 90 mL/min/{1.73_m2} Normal >60 [facility] Comment on above: Result Comment: mL/m in/1.73m2 CKD-EPI Creatinine Equation (2020) Performed By: #### L 500.4050, L100.0100 #### [facility] [address] [place], [address] Globulin (S) [Mass/Vol] 2.9 g/dL Normal 2.2-4.2 [facility] Comment on above: Performed By: #### L 500.4050, L100.0100 #### [facility] [address] [place], [address] Glucose [Mass/Vol] 74 mg/dL Normal 70-99 [facility] Comment on above: Performed By: #### L 500.4050, L100.0100 #### [facility] [address] [place], [address] Potassium [Moles/Vol] 3.7 mmol/L Normal 3.3-5.1 [facility] Comment on above: Performed By: #### L 500.4050, L100.0100 #### [facility] [address] [place], [address] Sodium [Moles/Vol] 141 mmol/L Normal 133-145 [facility] Comment on above: Performed By: #### L 500.4050, L100.0100 #### [facility] [address] [place], [address] T PROT 6.5 g/dL Normal 5.9-8.4 [facility] Comment on above: Performed By: #### L 500.4050, L100.0100 #### [facility] [address] [place], [address] Urea nitrogen [Mass/Vol] 12 mg/dL Normal 4-19 [facility] Comment on above: Performed By: #### L 500.4050, L100.0100 #### [facility] [address] [place], [address] Eosinophil percentageOrdered By: Sanjana Thomas on 11-01-2024 Eosinophils/100 WBC (Bld) 1.4 % 0-5 [facility] Erythrocyte distribution wid th ratioOrdered By: Sanjana Thomas on 11-01-2024 Erythrocyte distribution width (RBC) [Ratio] 15.1 % High 11.6-14.6 [facility] Erythrocyte distribution wid th standard deviationOrdered By: Sanjana Thomas on 11-01-2024 Erythrocyte distribution width (RBC) [Ratio] 54.3 fl High 35.1-43.9 [facility] Glomerular filtration rate ( GFR) estimation/1.73 sq m using serum, plasma, or whole bOrdered By: Sanjana Thomas on 11-01-2024 GFR/1.73 sq M.predicted among non-blacks MDRD (S/P/Bld) [Vol rate/Area] 90 mL/min/{1.73_m2} >60 [facility] Comment on above: mL/min/1.73m2 CKD-EP I Creatinine Equation (2020) Hematocrit Auto (Bld) [Volum e fraction]Ordered By: Sanjana Thomas on 11-01-2024 Hematocrit (Bld) [Volume fraction] 42.2 % 37-47 [facility] Hemoglobin measurementOrdere d By: Sanjana Thomas on 11-01-2024 Hemoglobin (Bld) [Mass/Vol] 12.8 g/dL 12.0-15.0 [facility] Immature granulocytes/100 WB C Auto (Bld)Ordered By: Sanjana Thomas on 11-01-2024 Immature granulocytes/100 WBC (Bld) 0.300 % 0.0-0.9 [facility] Comment on above: IG% - Immature Granu locytes (promyelocytes, myelocytes and metamyelocytes) > 1% indicates that a LEFT SHIFT is Present. Laboratory - Chemistry and C hemistry - challengeOrdered By: Sanjana Thomas on 11-01-2024 AST [Catalytic activity/Vol] 18 U/L <32 [facility] MCV (mean corpuscular volume ) determinationOrdered By: Sanjana Thomas on 11-01-2024 MCV (RBC) [Entitic vol] 98.6 fL 81-99 [facility] Mean corpuscular hemoglobin (MCH) determinationOrdered By: Sanajna Thomas on 11-01-2024 MCH (RBC) [Entitic mass] 29.9 pg 27.0-32.0 [facility] Mean corpuscular hemoglobin concentration (MCHC) determinationOrdered By: Sanjana Thomas on 11-01-2024 MCHC (RBC) [Mass/Vol] 30.3 g/dL Low 32-36 [facility] Mean platelet volume determi nationOrdered By: Sanjana Thomas on 11-01-2024 Platelet mean volume (Bld) [Entitic vol] 10.9 fL 6.2-12.0 [facility] Monocyte percentageOrdered B y: Sanjana Thomas on 11-01-2024 Monocytes/100 WBC (Bld) 10.4 % High 0-10 [facility] Neutrophil percentageOrdered By: Sanjana Thomas on 11-01-2024 Neutrophils/100 WBC (Bld) 54.5 % 47-70 [facility] Nucleated red blood cell per centageOrdered By: Sanjana Thomas on 11-01-2024 Nucleated RBC/100 WBC (Bld) [Ratio] 0 % 0-5 [facility] Platelet countOrdered By: Jennie Thomas on 11-01-2024 Platelets (Bld) [#/Vol] 261 10*3/uL 150-450 [facility] Potassium measurement (mass/ volume)Ordered By: Sanjana Thomas on 11-01-2024 Potassium (Unsp spec) [Mass/Vol] 3.7 mmol/L 3.3-5.1 [facility] RBC Auto (Bld) [#/Vol]Ordere d By: Sanjana Thomas on 11-01-2024 RBC (Bld) [#/Vol] 4.28 10*6/uL 4.2-5.4 [facility] Serum creatinine measurement (mass/volume)Ordered By: Sanjana Thomas on 11-01-2024 Creatinine [Mass/Vol] 0.64 mg/dL Low 0.70-1.20 [facility] Serum globulin measurementOr dered By: Sanjana Thomas on 11-01-2024 Globulin (S) [Mass/Vol] 2.9 g/dL 2.2-4.2 [facility] Serum glucose measurement (m ass/volume)Ordered By: Sanjana Thomas on 11-01-2024 Glucose [Mass/Vol] 74 mg/dL 70-99 [facility] Serum or plasma alanine solitario otransferase (ALT) measurementOrdered By: Sanjana Thomas on 11-01-2024 ALT [Catalytic activity/Vol] 11 U/L <35 [facility] Serum or plasma albumin cesilia urement (mass/volume)Ordered By: Sanjana Thomas on 11-01-2024 Albumin [Mass/Vol] 3.7 g/dL 3.4-4.8 [facility] Serum or plasma albumin/glob ulin mass ratioOrdered By: Sanjana Thomas on 11-01-2024 Albumin/Globulin [Mass ratio] 1.3 {ratio} 0.9-2.4 [facility] Serum or plasma alkaline liv sphatase measurementOrdered By: Sanjana Thomas on 11-01-2024 ALP [Catalytic activity/Vol] 74 U/L 35-104 [facility] Serum or plasma calcium cesilia urement (mass/volume)Ordered By: Sanjana Thomas on 11-01-2024 Calcium [Mass/Vol] 8.8 mg/dL 7.6-11.0 [facility] Serum or plasma urea nitroge n measurement (mass/volume)Ordered By: Sanjana Thomas on 11-01-2024 Urea nitrogen [Mass/Vol] 12 mg/dL 4-19 [facility] Sodium levelOrdered By: Alvarez Thomas on 11-01-2024 Sodium [Moles/Vol] 141 mmol/L 133-145 [facility] Total proteinOrdered By: Eitan Thomas on 11-01-2024 Protein [Mass/Vol] 6.5 g/dL 5.9-8.4 [facility] White blood cell (WBC) count Ordered By: Sanjana Thomas on 11-01-2024 WBC (Bld) [#/Vol] 3.5 10*3/uL Low 4.4-11.0 [facility] Soft Tissue Neck W/WO Contra ston 10-27-2024 Soft Tissue Neck W/WO Contrast [facility] Imaging Services [address] [place] [address] Soft Tissue Neck W/WO Contrast MR#: [id number] Acct: [id number] Name: ANNE DUARTE GENA Rep #: [id number] : 1945 F 78 From: Colt Felipe MD PCP: Dr. Shannan Perssley MD Status: REG CLI Study: Soft Tissue Neck W/WO Contrast Date of Exam: 0 10/27/24 Exam# [id number] Ordering Dr: Davie Mckeon MD PROCEDURE: SOFT [...] measured above. Negative for adenopathy. Reading [facility] CC: Dr. Shannan Pressley MD; Dr. Davie Mckeon MD Die Trouble Shooter: Signed Normal [facility] Special Stain Group IIon Special Stain Group II Patient Age/Sex Location Account Attending Physician ANNE DUARTE 78/F LABSPEC [id number] Dr. Davie Mckeon MD Specimen: [id number] Received: 09/30/24 Status: HARSHAL Velazquez Num: [id number] Spec Type: ASP OUT Subm Dr: Dr. Davie Mckeon MD HEADER OPERATION: Fine needle aspiration of right thyroid mass PRE-OP DIAGNOSIS: Right thyroid mass TISSUE SUBMITTED: A- Right thyroid mass fluid DIAGNOSIS CYTOLOGY A. Right thyroid mass, fine needle aspiration: * Atypical cells of undetermined significance (Newell III). COMMENT The specimen is evaluated at [...] 2 pap-stained smears, cytospin preparation). 09/30/2024 CPT: 48201 ,72232 ADDENDUM Addendum 1 Entered: 11/01/24 AFIRMA RESULTS REPORT - A RESULTS INTERPRETATION: The result of this 5.9 cm Newell III nodule A is Afirma GSC benign, which suggests a low risk of cancer of approximately 4%. Treatment like a cytologically benign nodule may be appropriate, including clinical correlation. Afirma XA is not performed on GSC Benign nodules. TERT promoter region analysis is not performed on GSC Patient Age/Sex Location Account Attending Physician ANNE DUARTE 78/F LABSPEC [id number] Dr. Davie Mckeon MD ADDENDUM (Continued) Benign nodules. Please see complete report in e-chart or EMR Addendum Signed (signature on file) Dr. Fany Romeo MD 11/01/24 1005 Signed (signature on file) Dr. Fany Romeo MD 10/14/24 1617 Normal [facility] Comment on above: Performed By: #### P SSII ####[facility] [address] [place], [place], [address] Surgery Visit Reporton 09-30 Surgery Visit Report [facility] [address] [place], [place] [address] OFFICE VISIT Date of Service: 09/30/24 MR#: [id number] Acct: [id number] Name: ANNE DUARTE Rep #: [id number] : 1945 Provider: Dr. 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 Normal [facility] Head/Neck Soft Tissueon 04- Head/Neck Soft Tissue [facility] Imaging Services [address] [place] [address] Head/Neck Soft Tissue MR#: [id number] Acct: [id number] Name: ANNE DUARTE Rep #: [id number] : 1945 F 78 From: Anthony flores MD PCP: Dr. Kristina Richard MD Status: REG CLI Study: Head/Neck Soft Tissue Date of Exam: 08/30/24 Exam# [id number] Ordering Dr: Kristina Richard MD EXAM: Ultrasound [...] cm 3.1 cm. Biopsy recommended. Reading Location: [place] [address] CC: Dr. Kristina Richard MD Die Trouble Shooter: Signed Normal [facility] Absolute lymphocyte countOrd ered By: Sanjana Thomas on 08-12-2024 Lymphocytes Auto (Unsp spec) [#/Vol] 1.30 10*3/uL 0.83-4.51 [facility] Absolute neutrophil countOrd ered By: Sanjana Thomas on 08-12-2024 Neutrophils (Bld) [#/Vol] 2.6 10*3/uL 2.0-7.7 [facility] Anion gap in Serum or Plasma Ordered By: Sanjana Thomas on 08-12-2024 Anion gap [Moles/Vol] 11 mmol/L 5-15 [facility] Automated blood erythrocyte countOrdered By: Sanjana Thomas on 08-12-2024 RBC (Bld) [#/Vol] 4.51 10*6/uL Normal 4.2-5.4 [facility] Comment on above: Performed By: #### L 500.4050, L100.0100 ####[facility] [address] [place], [address] Automated blood hematocrit ( percentage)Ordered By: Sanjana Thomas on 08-12-2024 Hematocrit (Bld) [Volume fraction] 44.1 % Normal 37-47 [facility] Comment on above: Performed By: #### L 500.4050, L100.0100 ####[facility] [address] [place], [address] Automated lymphocyte count a s percentage of total leukocytesOrdered By: Sanjana Thomas on 08-12-2024 Lymphocytes/100 WBC (Bld) 30.0 % Normal 19-41 [facility] Comment on above: Performed By: #### L 500.4050, L100.0100 ####[facility] [address] [place], [address] Lymphocytes/100 WBC Auto (Unsp spec) 30.0 % 19- [facility] BUN/creatinine ratioOrdered By: Sanjana Thomas on 08-12-2024 Urea nitrogen/Creatinine [Mass ratio] 20.6 mg/mg High 10-20 [facility] Basophil percentageOrdered B y: Sanjana Thomas on 08-12-2024 Basophils/100 WBC (Bld) 0.7 % Normal 0-1 [facility] Comment on above: Performed By: #### L 500.4050, L100.0100 ####[facility] [address] [place], [address] Bilirubin, totalOrdered By: Sanjana Thomas on 08-12-2024 Bilirubin [Mass/Vol] 0.23 mg/dL 0.00-1.30 [facility] CBC W/Diff, Automatedon Absolute Lymph 1.30 X10 3/uL Normal 0.83-4.51 [facility] Comment on above: Performed By: #### L 500.4050, L100.0100 ####[facility] [address] [place], [address] Absolute Neut 2.6 X10 3/uL Normal 2.0-7.7 [facility] Comment on above: Performed By: #### L 500.4050, L100.0100 ####[facility] [address] [place], [address] IG% 0.200 Normal 0.0-0.9 [facility] Comment on above: Result Comment: IG% - Immature Granulocytes (promyelocytes, myelocytes and metamyelocytes) > 1% indicates that a LEFT SHIFT is Present. Performed By: #### L 500.4050, L100.0100 ####[facility] [address] [place], [address] Nucleated RBC (Bld) [#/Vol] 0 10*3/uL Normal 0-5 [facility] Comment on above: Performed By: #### L 500.4050, L100.0100 ####[facility] [address] [place], [address] RDW SD 55.6 fl High 35.1-43.9 [facility] Comment on above: Performed By: #### L 500.4050, L100.0100 ####[facility] [address] [place], [address] Carbon dioxide, total [Moles /volume] in Central venous bloodOrdered By: Sanjana Thomas on 08-12-2024 CO2 [Moles/Vol] 27.8 mmol/L 21.0-32.0 [facility] Chloride assayOrdered By: Jennie Thomas on 08-12-2024 Chloride [Moles/Vol] 102 mmol/L 98-108 [facility] Comprehensive Metabolic Prof ilon 08-12-2024 Albumin [Mass/Vol] 4.0 g/dL Normal 3.4-4.8 [facility] Comment on above: Performed By: #### L 500.4050, L100.0100 ####[facility] [address] [place], [address] Albumin/Globulin [Mass ratio] 1.3 {ratio} Normal 0.9-2.4 [facility] Comment on above: Performed By: #### L 500.4050, L100.0100 ####[facility] [address] [place], [address] ALK PHOS 79 U/L Normal 35-104 [facility] Comment on above: Performed By: #### L 500.4050, L100.0100 ####[facility] [address] [place], [address] ALT [Catalytic activity/Vol] 10 U/L Normal <=34 [facility] Comment on above: Performed By: #### L 500.4050, L100.0100 ####[facility] [address] [place], [address] AST [Catalytic activity/Vol] 20 U/L Normal <=31 [facility] Comment on above: Performed By: #### L 500.4050, L100.0100 ####[facility] [address] [place], [address] Bilirubin [Mass/Vol] 0.23 mg/dL Normal 0.00-1.30 [facility] Comment on above: Performed By: #### L 500.4050, L100.0100 ####[facility] [address] [place], [address] BUN/CRE 20.6 RATIO High 10-20 [facility] Comment on above: Performed By: #### L 500.4050, L100.0100 ####[facility] [address] [place], [address] Calcium [Mass/Vol] 9.3 mg/dL Normal 7.6-11.0 [facility] Comment on above: Performed By: #### L 500.4050, L100.0100 ####[facility] [address] [place], [address] Chloride [Moles/Vol] 102 mmol/L Normal 98-108 [facility] Comment on above: Performed By: #### L 500.4050, L100.0100 ####[facility] [address] [place], [address] CO2 [Moles/Vol] 27.8 mmol/L Normal 21.0-32.0 [facility] Comment on above: Performed By: #### L 500.4050, L100.0100 ####[facility] [address] [place], [address] Creatinine [Mass/Vol] 0.66 mg/dL Low 0.70-1.20 [facility] Comment on above: Performed By: #### L 500.4050, L100.0100 ####[facility] [address] [place], [address] GAP 11 Normal 5-15 [facility] Comment on above: Performed By: #### L 500.4050, L100.0100 ####[facility] [address], [address] GFR/1.73 sq M.predicted among non-blacks MDRD (S/P/Bld) [Vol rate/Area] 90 mL/min/{1.73_m2} Normal >60 [facility] Comment on above: Result Comment: mL/m in/1.73m2 CKD-EPI Creatinine Equation (2020) Performed By: #### L 500.4050, L100.0100 ####[facility] [address] [place], [address] Globulin (S) [Mass/Vol] 3.1 g/dL Normal 2.2-4.2 [facility] Comment on above: Performed By: #### L 500.4050, L100.0100 ####[facility] [address] [place], [address] Glucose [Mass/Vol] 103 mg/dL High 70-99 [facility] Comment on above: Performed By: #### L 500.4050, L100.0100 ####[facility] [address] [place], [address] Potassium [Moles/Vol] 4.1 mmol/L Normal 3.3-5.1 [facility] Comment on above: Performed By: #### L 500.4050, L100.0100 ####[facility] [address] [place], [address] Sodium [Moles/Vol] 141 mmol/L Normal 133-145 [facility] Comment on above: Performed By: #### L 500.4050, L100.0100 ####[facility] [address] [place], [address] T PROT 7.1 g/dL Normal 5.9-8.4 [facility] Comment on above: Performed By: #### L 500.4050, L100.0100 ####[facility] [address] [place], [address] Urea nitrogen [Mass/Vol] 14 mg/dL Normal 4-19 [facility] Comment on above: Performed By: #### L 500.4050, L100.0100 ####[facility] [address] [place], [address] Eosinophil percentageOrdered By: Sanjana Thomas on 08-12-2024 Eosinophils/100 WBC (Bld) 1.2 % Normal 0-5 [facility] Comment on above: Performed By: #### L 500.4050, L100.0100 ####[facility] [address] [place], [address] Erythrocyte distribution wid th (RBC) [Ratio]Ordered By: Sanjana Thomas on 08-12-2024 Erythrocyte distribution width (RBC) [Entitic vol] 55.6 fL High 35.1-43.9 [facility] Erythrocyte distribution wid th ratioOrdered By: Sanjana Thomas on 08-12-2024 Erythrocyte distribution width (RBC) [Ratio] 15.6 % High 11.6-14.6 [facility] Comment on above: Performed By: #### L 500.4050, L100.0100 ####[facility] [address] [place], [address] Erythrocyte distribution wid th standard deviationOrdered By: Sanjana Thomas on 08-12-2024 Erythrocyte distribution width (RBC) [Ratio] 55.6 fl High 35.1-43.9 [facility] GFR/1.73 sq M.predicted chloe g non-blacks MDRD (S/P/Bld) [Vol rate/Area]Ordered By: Sanjana Thomas on 08-12-2024 Estimated GFR (MDRD) Non-Af Amer 90 >60 [facility] Comment on above: mL/min/1.73m2 CKD-EP I Creatinine Equation (2020) Glomerular filtration rate ( GFR) estimation/1.73 sq m using serum, plasma, or whole bOrdered By: Sanjana Thomas on 08-12-2024 GFR/1.73 sq M.predicted among non-blacks MDRD (S/P/Bld) [Vol rate/Area] 90 mL/min/{1.73_m2} >60 [facility] Comment on above: mL/min/1.73m2 CKD-EP I Creatinine Equation (2020) Hemoglobin measurementOrdere d By: Sanjana Thomas on 08-12-2024 Hemoglobin (Bld) [Mass/Vol] 13.4 g/dL Normal 12.0-15.0 [facility] Comment on above: Performed By: #### L 500.4050, L100.0100 ####[facility] [address] [place], [address] Immature granulocytes/100 WB C Auto (Bld)Ordered By: Sanjana Thomas on 08-12-2024 Immature granulocytes/100 WBC (Bld) 0.200 % 0.0-0.9 [facility] Comment on above: IG% - Immature Granu locytes (promyelocytes, myelocytes and metamyelocytes) > 1% indicates that a LEFT SHIFT is Present. Laboratory - Chemistry and C hemistry - challengeOrdered By: Sanjana Thomas on 08-12-2024 AST [Catalytic activity/Vol] 20 U/L <32 [facility] Lymphocytes Auto (Unsp spec) [#/Vol]Ordered By: Sanjana Thomas on 08-12-2024 Lymphocytes (Bld) [#/Vol] 1.30 10*3/uL 0.83-4.51 [facility] MCV (mean corpuscular volume ) determinationOrdered By: Sanjana Thomas on 08-12-2024 MCV (RBC) [Entitic vol] 97.8 fL Normal 81-99 [facility] Comment on above: Performed By: #### L 500.4050, L100.0100 ####[facility] [address] [place], [address] Mean corpuscular hemoglobin (MCH) determinationOrdered By: Sanjana Thomas on 08-12-2024 MCH (RBC) [Entitic mass] 29.7 pg Normal 27.0-32.0 [facility] Comment on above: Performed By: #### L 500.4050, L100.0100 ####[facility] [address] [place], [address] Mean corpuscular hemoglobin concentration (MCHC) determinationOrdered By: Sanjana Thomas on 08-12-2024 MCHC (RBC) [Mass/Vol] 30.4 g/dL Low 32-36 [facility] Comment on above: Performed By: #### L 500.4050, L100.0100 ####[facility] [address] [place], [address] Mean platelet volume determi nationOrdered By: Sanjana Thomas on 08-12-2024 Platelet mean volume (Bld) [Entitic vol] 10.9 fL Normal 6.2-12.0 [facility] Comment on above: Performed By: #### L 500.4050, L100.0100 ####[facility] [address] [place], [address] Monocyte percentageOrdered B y: Sanjana Thomas on 08-12-2024 Monocytes/100 WBC (Bld) 8.8 % Normal 0-10 [facility] Comment on above: Performed By: #### L 500.4050, L100.0100 ####[facility] [address] [place], [address] Neutrophil percentageOrdered By: Sanjana Thomas on 08-12-2024 Neutrophils/100 WBC (Bld) 59.1 % Normal 47-70 [facility] Comment on above: Performed By: #### L 500.4050, L100.0100 ####[facility] [address] [place], [address] Nucleated red blood cell per centageOrdered By: Sanjana Thomas on 08-12-2024 Nucleated RBC/100 WBC (Bld) [Ratio] 0 % 0-5 [facility] Platelet countOrdered By: Jennie Thomas on 08-12-2024 Platelets (Bld) [#/Vol] 278 10*3/uL Normal 150-450 [facility] Comment on above: Performed By: #### L 500.4050, L100.0100 ####[facility] [address] [place], [address] Potassium (Unsp spec) [Mass/ Vol]Ordered By: Sanjana Thomas on 08-12-2024 Potassium [Moles/Vol] 4.1 mmol/L 3.3-5.1 [facility] Potassium measurement (mass/ volume)Ordered By: Sanjana Thomas on 08-12-2024 Potassium (Unsp spec) [Mass/Vol] 4.1 mmol/L 3.3-5.1 [facility] Serum creatinine measurement (mass/volume)Ordered By: Sanjana Thomas on 08-12-2024 Creatinine [Mass/Vol] 0.66 mg/dL Low 0.70-1.20 [facility] Serum globulin measurementOr dered By: Sanjana Thomas on 08-12-2024 Globulin (S) [Mass/Vol] 3.1 g/dL 2.2-4.2 [facility] Serum glucose measurement (m ass/volume)Ordered By: Sanjana Thmoas on 08-12-2024 Glucose [Mass/Vol] 103 mg/dL High 70-99 [facility] Serum or plasma alanine solitario otransferase (ALT) measurementOrdered By: Sanjana Thomas on 08-12-2024 ALT [Catalytic activity/Vol] 10 U/L <35 [facility] Serum or plasma albumin cesilia urement (mass/volume)Ordered By: Sanjana Thomas on 08-12-2024 Albumin [Mass/Vol] 4.0 g/dL 3.4-4.8 [facility] Serum or plasma albumin/glob ulin mass ratioOrdered By: Sanjana Thomas on 08-12-2024 Albumin/Globulin [Mass ratio] 1.3 {ratio} 0.9-2.4 [facility] Serum or plasma alkaline liv sphatase measurementOrdered By: Sanjana Thomas on 08-12-2024 ALP [Catalytic activity/Vol] 79 U/L 35-104 [facility] Serum or plasma calcium cesilia urement (mass/volume)Ordered By: Sanjana Thomas on 08-12-2024 Calcium [Mass/Vol] 9.3 mg/dL 7.6-11.0 [facility] Serum or plasma urea nitroge n measurement (mass/volume)Ordered By: Sanjana Thomas on 08-12-2024 Urea nitrogen [Mass/Vol] 14 mg/dL 4-19 [facility] Sodium levelOrdered By: Alvarez Thomas on 08-12-2024 Sodium [Moles/Vol] 141 mmol/L 133-145 [facility] Total proteinOrdered By: Eitan Thomas on 08-12-2024 Protein [Mass/Vol] 7.1 g/dL 5.9-8.4 [facility] White blood cell (WBC) count Ordered By: Sanjana Thomas on 08-12-2024 WBC (Bld) [#/Vol] 4.3 10*3/uL Low 4.4-11.0 [facility] Comment on above: Performed By: #### L 500.4050, L100.0100 ####[facility] [address] [facility] [address] [place] Lambda Light Chainson 07-10-2024 FR KAPPA LT CHN 14.7 mg/L Normal 3.3-19.4 [facility] Comment on above: Order Comment: Test( s) [id number]-Rxa. B1, Whole Bloodwas developed and its performance characteristicsdetermined by [employer]. It has not been cleared or approvedby the Food and Drug Administration. Performed By: #### L 500.4100, L3300.8000, L3130.0010 ####[facility] [address] [facility] [address] FR LAMBDA LT CH 11.3 mg/L Normal 5.7-26.3 [facility] Comment on above: Order Comment: Test( s) [id number]-Znw. B1, Whole Bloodwas developed and its performance characteristicsdetermined by [employer]. It has not been cleared or approvedby the Food and Drug Administration. Performed By: #### L 500.4100, L3300.8000, L3130.0010 ####[facility] [address] [facility] [address] KAPPA/LAMBDA % 1.30 Normal 0.26-1.65 [facility] Comment on above: Order Comment: Test( s) [id number]-Lph. B1, Whole Bloodwas developed and its performance characteristicsdetermined by [employer]. It has not been cleared or approvedby the Food and Drug Administration. Performed By: #### L 500.4100, L3300.8000, L3130.0010 ####[facility] [address] [place] [id number] Vitamin B1, Thiamineon 07-10 VIT B1 THIAMINE 125.7 nmol/L Normal 66.5-200.0 [facility] Comment on above: Order Comment: Test( s) [id number]-Iqg. B1, Whole Bloodwas developed and its performance characteristicsdetermined by [employer]. It has not been cleared or approvedby the Food and Drug Administration. Result Comment: Perf ormed at: - [address] [id number] [employer]: Cirilo Turner PhD, Phone: [phone] Performed at: [facility] [address] [id number] [employer]: Snow Sun MD, Phone: [phone] Performed By: #### L 500.4100, L3300.8000, L3130.0010 ####[facility] [address] [place], [place], [id number] Cholesterol in VLDL [Mass/Vo l]Ordered By: Deangelo White on 07-06-2024 VLDL Cholesterol 16 mg/dL [facility] Folate measurementOrdered By : Deangelo White on 07-06-2024 Folate 40.00 ng/mL High 4.60-34.80 [facility] Folates, (Folic Acid)on 06-13 FOLATES 40.00 ng/mL High 4.60-34.80 [facility] Comment on above: Order Comment: N Performed By: #### L 501.9520, L500.4100, L503.0106, L506.0250 #### [facility] Laboratory [address] [place], [address] Immunoglobulin light chains. kappa [Mass/Vol]Ordered By: Deangelo White on 07-06-2024 Free [place] Light Chains, Quant 14.7 mg/L 3.3-19.4 [facility] Immunoglobulin light chains. kappa/Immunoglobulin light chains.lambda (S) [Mass ratio]Ordered By: Deangelo White on 07-06-2024 Free [place]/Lambda Light Chain Ratio 1.30 0.26-1.65 [facility] L503.0106on 07-06-2024 Cobalamin (Vitamin B12) [Mass/Vol] 388 pg/mL Normal 180-914 [facility] Comment on above: Performed By: #### L 501.9520, L500.4100, L503.0106, L506.0250 #### [facility] [address] [place], [address] Laboratory - Chemistry and C hemistry - challengeOrdered By: Deangelo White on 07-06-2024 Cobalamin (Vitamin B12) [Mass/Vol] 388 pg/mL 180-914 [facility] Lambda free light chain cesilia urementOrdered By: Deangelo White on 07-06-2024 Free Lambda Light Chains, Quant 11.3 mg/L 5.7-26.3 [facility] Lipid Profileon 07-06-2024 Cholesterol in LDL [Mass/Vol] 123 mg/dL Normal 0-130 [facility] Comment on above: Performed By: #### L 501.9520, L500.4100, L503.0106, L506.0250 ####[facility] [address] [place], [address] HDL Normal [facility] Comment on above: Result Comment: PUTT ING UNDER DIFFERENT REQ The drugs N-Acetylcysteine and Metamizole may falsely depress this assay. Performed By: #### L 500.4100, L3300.8000, L3130.0010 ####[facility] [address] [place], [address] TRIG Normal [facility] Comment on above: Result Comment: PUTT ING UNDER DIFFERENT REQ The drugs N-Acetylcysteine and Metamizole may falsely depress this assay. Performed By: #### L 500.4100, L3300.8000, L3130.0010 ####[facility] [address] [place], [address] CHOL Normal 200 [facility] Comment on above: Result Comment: PUTT ING UNDER DIFFERENT REQ Performed By: #### L 500.4100, L3300.8000, L3130.0010 ####[facility] [address] [place], [address] LDL Normal 0-130 [facility] Comment on above: Result Comment: PUTT ING UNDER DIFFERENT REQ Performed By: #### L 500.4100, L3300.8000, L3130.0010 ####[facility] [address] [place], [address] VLDL Normal 5-40 [facility] Comment on above: Result Comment: PUTT ING UNDER DIFFERENT REQ Performed By: #### L 500.4100, L3300.8000, L3130.0010 ####[facility] [address] [place], [address] Low density lipoprotein (LDL ) cholesterol measurementOrdered By: Deangelo White on 07-06-2024 Cholesterol in LDL [Mass/Vol] 123 mg/dL 0-130 [facility] Serum immunoglobulin kappa l ight chains/immunoglobulin lambda light chains mass ratioOrdered By: Deangelo White on 07-06-2024 Immunoglobulin light chains.kappa/Immunoglob ulin light chains.lambda (S) [Mass ratio] 1.30 0.26-1.65 [facility] Serum or plasma cholesterol in HDL measurement (mass/volume)Ordered By: Deangelo White on 07-06-2024 Cholesterol in HDL [Mass/Vol] 75 mg/dL >40 [facility] Comment on above: National Cholesterol Education Program (NCEP) guidelines:<40 mg/dL: Low HDL-cholesterol (major risk factor for CHD)>= 60 mg/dL: High HDL-cholesterol (negative risk factor for CHD)HDL-cholesterol is affected by a number of factors, e.g. smoking, exercise, hormones, sex and age. Serum or plasma cholesterol in VLDL measurement (mass/volume)Ordered By: Deangelo White on 07-06-2024 Cholesterol in VLDL [Mass/Vol] 16 mg/dL 5-40 [facility] Serum or plasma cholesterol measurement (mass/volume)Ordered By: Deangelo White on 07-06-2024 Cholesterol [Mass/Vol] 214 mg/dL High <201 [facility] Comment on above: Cholesterol level, D esirable <200 mg/dLBorderline high cholesterol 200-239 mg/dLHigh cholesterol >=240 mg/dLRecommendations of the NCEP Adult Treatment Panel for the following risk-cutoff thresholds for the [place] population. Serum or plasma immunoglobul in kappa light chains measurement (mass/volume)Ordered By: Deangelo White on 07-06-2024 Immunoglobulin light chains.kappa [Mass/Vol] 14.7 mg/L 3.3-19.4 [facility] Serum or plasma thiamine adriane surement (mass/volume)Ordered By: Deangelo White on 07-06-2024 Thiamine [Mass/Vol] 125.7 nmol/L 66.5-200.0 [facility] Comment on above: Performed at: [employer] [place] [id number] Director: Cirilo Turner PhD, Phone: [phone] at: [employer] [id number] Director: Snow Sun MD, Phone: [phone] TSH DL <= 0.005 mIU/L QnOrde red By: Deangelo White on 07-06-2024 Thyroid Stimulating Hormone (TSH) 3.290 uIU/mL 0.300-4.20 0 [facility] TSH Qn 3.290 uIU/mL 0.300-4.20 0 [facility] Thiamine [Mass/Vol]Ordered B y: Deangelo White on 07-06-2024 Whole Blood Vitamin B1 Level 125.7 nmol/L 66.5-200.0 [facility] Comment on above: Performed at: [employer] [place], [place] [id number] Director: Cirilo Turner PhD, Phone: [phone] at: [employer] [address] [id number] Director: Snow Sun MD, Phone: [phone] Thyroid Stim Hormone (TSH)on 07-06-2024 TSH 3.290 uIU/mL Normal 0.300-4.20 0 [facility] Comment on above: Performed By: #### L 501.9520, L500.4100, L503.0106, L506.0250 #### [facility] [address] [place], [address] Triglycerides measurementOrd ered By: Deangelo White on 07-06-2024 Triglyceride [Mass/Vol] 78 mg/dL <199 [facility] Comment on above: The drugs N-Acetylcy steine and Metamizole may falsely depress this assay. Normal range: <150 mg/dLBorderline High: 150-199 mg/dLHigh: 200-499 mg/dLVery High: >500 mg/dL Neurology Visit Reporton Neurology Visit Report [facility] [address] [facility], [address] [place], [place] [address] OFFICE VISIT Date of Service: 07/01/24 MR#: [id number] Acct: [id number] Name: ANNE DUARTE GENA Rep #: [id number] : 1945 Provider: Dr. Deangelo melendez MD Age/Sex: 78/F Location: [facility]. Status: Signed HPI HPI Chief Complaint: Establish Care Details: History: The patient is a 78-year-old right-handed woman with a past medical history of hypertension, rheumatoid arthritis and cerebral aneurysm rupture in 2014 who presents for neurological evaluation. She is [...] bifurcation of the middle cerebral artery). 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 She sees a healthcare or medical for rheumatoid arthritis and is on methotrexate. [...] bilaterally Suppl (more content not included)... Normal [facility] Absolute neutrophil countOrd ered By: Sanjana Thomas on 05-13-2024 Neutrophils (Bld) [#/Vol] 1.9 10*3/uL Low 2.0-7.7 [facility] Albumin to globulin ratioOrd ered By: Sanjana Thomas on 05-13-2024 Albumin/Globulin [Mass ratio] 0.9 {ratio} 0.9-2.4 [facility] Basophil percentageOrdered B y: Sanjana Thomas on 05-13-2024 Basophils/100 WBC (Bld) 1.0 % 0-1 [facility] Bilirubin, totalOrdered By: Sanjana Thomas on 05-13-2024 Bilirubin [Mass/Vol] 0.20 mg/dL 0.20-1.00 [facility] Comment on above: For patients on eltr ombopag therapy, use of Dimension [employer] TBIL is not recommended. Blood urea nitrogen (BUN)/cr eatinine ratioOrdered By: Sanjana Thomas on 05-13-2024 Urea nitrogen/Creatinine [Mass ratio] 20.7 mg/mg High 10-20 [facility] CBC W/Diff, Automatedon Absolute Lymph 1.50 X10 3/uL Normal 0.83-4.51 [facility] Comment on above: Performed By: #### L 500.4050, L100.0100 ####[facility] [address] [place], [address] Absolute Neut 1.9 X10 3/uL Low 2.0-7.7 [facility] Comment on above: Performed By: #### L 500.4050, L100.0100 ####[facility] [address] [place], [address] Basophils/100 WBC (Bld) 1.0 % Normal 0-1 [facility] Comment on above: Performed By: #### L 500.4050, L100.0100 ####[facility] [address] [place], [address] Eosinophils/100 WBC (Bld) 1.5 % Normal 0-5 [facility] Comment on above: Performed By: #### L 500.4050, L100.0100 ####[facility] [address] [place], [address] Erythrocyte distribution width (RBC) [Ratio] 16.4 % High 11.6-14.6 [facility] Comment on above: Performed By: #### L 500.4050, L100.0100 ####[facility] [address] [place], [address] Hematocrit (Bld) [Volume fraction] 42.1 % Normal 37-47 [facility] Comment on above: Performed By: #### L 500.4050, L100.0100 ####[facility] [address] [place], [address] Hemoglobin (Bld) [Mass/Vol] 13.0 g/dL Normal 12.0-15.0 [facility] Comment on above: Performed By: #### L 500.4050, L100.0100 ####[facility] [address] [place], [address] IG% 0.300 Normal 0.0-0.9 [facility] Comment on above: Result Comment: IG% - Immature Granulocytes (promyelocytes, myelocytes and metamyelocytes) > 1% indicates that a LEFT SHIFT is Present. Performed By: #### L 500.4050, L100.0100 ####[facility] [address] [place], [address] Lymphocytes/100 WBC (Bld) 38.2 % Normal 19-41 [facility] Comment on above: Performed By: #### L 500.4050, L100.0100 ####[facility] [address] [place], [address] MCH (RBC) [Entitic mass] 30.4 pg Normal 27.0-32.0 [facility] Comment on above: Performed By: #### L 500.4050, L100.0100 ####[facility] [address] [place], [address] MCHC (RBC) [Mass/Vol] 30.9 g/dL Low 32-36 [facility] Comment on above: Performed By: #### L 500.4050, L100.0100 ####[facility] [address] [place], [address] MCV (RBC) [Entitic vol] 98.4 fL Normal 81-99 [facility] Comment on above: Performed By: #### L 500.4050, L100.0100 ####[facility] [address] [place], [address] Monocytes/100 WBC (Bld) 9.7 % Normal 0-10 [facility] Comment on above: Performed By: #### L 500.4050, L100.0100 ####[facility] [address], [address] Neutrophils/100 WBC (Bld) 49.3 % Normal 47-70 [facility] Comment on above: Performed By: #### L 500.4050, L100.0100 ####[facility] [address] [place], [address] Nucleated RBC (Bld) [#/Vol] 0 10*3/uL Normal 0-5 [facility] Comment on above: Performed By: #### L 500.4050, L100.0100 ####[facility] [address] [place], [address] Platelet mean volume (Bld) [Entitic vol] 10.5 fL Normal 6.2-12.0 [facility] Comment on above: Performed By: #### L 500.4050, L100.0100 ####[facility] [address] [place], [address] Platelets (Bld) [#/Vol] 270 10*3/uL Normal 150-450 [facility] Comment on above: Performed By: #### L 500.4050, L100.0100 ####[facility] [address] [place], [address] RBC (Bld) [#/Vol] 4.28 10*6/uL Normal 4.2-5.4 [facility] Comment on above: Performed By: #### L 500.4050, L100.0100 ####[facility] [address] [place], [address] RDW SD 59.3 fl High 35.1-43.9 [facility] Comment on above: Performed By: #### L 500.4050, L100.0100 ####[facility] [address] [place], [address] WBC (Bld) [#/Vol] 3.9 10*3/uL Low 4.4-11.0 [facility] Comment on above: Performed By: #### L 500.4050, L100.0100 ####[facility] [address] [place], [address] Carbon dioxide measurementOr dered By: Sanjana Thomas on 05-13-2024 CO2 [Moles/Vol] 32.0 mmol/L 21.0-32.0 [facility] Chloride measurementOrdered By: Sanjana Thomas on 05-13-2024 Chloride [Moles/Vol] 105 mmol/L 98-107 [facility] Comprehensive Metabolic Prof ilon 05-13-2024 Albumin [Mass/Vol] 3.2 g/dL Normal 3.2-5.0 [facility] Comment on above: Performed By: #### L 500.4050, L100.0100 ####[facility] [address] [place], [address] Albumin/Globulin [Mass ratio] 0.9 {ratio} Normal 0.9-2.4 [facility] Comment on above: Performed By: #### L 500.4050, L100.0100 ####[facility] [address] [place], [address] ALK P 83 U/L Normal 45-117 [facility] Comment on above: Performed By: #### L 500.4050, L100.0100 ####[facility] [address] [place], [address] ALT [Catalytic activity/Vol] 17 U/L Normal 13-56 [facility] Comment on above: Performed By: #### L 500.4050, L100.0100 ####[facility] [address] [place], [address] AST [Catalytic activity/Vol] 15 U/L Normal 15-37 [facility] Comment on above: Performed By: #### L 500.4050, L100.0100 ####[facility] [address] [place], [address] Bilirubin [Mass/Vol] 0.20 mg/dL Normal 0.20-1.00 [facility] Comment on above: Result Comment: For patients on eltrombopag therapy, use of Dimension [employer] TBIL is not recommended. Performed By: #### L 500.4050, L100.0100 ####[facility] [address] [place], [address] BUN/CRE 20.7 RATIO High 10-20 [facility] Comment on above: Performed By: #### L 500.4050, L100.0100 ####[facility] [address] [place], [address] CA,Total 8.7 mg/dL Normal 8.5-10.1 [facility] Comment on above: Performed By: #### L 500.4050, L100.0100 ####[facility] [facility] [address] [place], [address] Chloride [Moles/Vol] 105 mmol/L Normal 98-107 [facility] Comment on above: Performed By: #### L 500.4050, L100.0100 ####[facility] [address] [place], [address] CO2 [Moles/Vol] 32.0 mmol/L Normal 21.0-32.0 [facility] Comment on above: Performed By: #### L 500.4050, L100.0100 ####[facility] [address] [place], [address] Creatinine [Mass/Vol] 0.63 mg/dL Normal 0.55-1.02 [facility] Comment on above: Result Comment: The validity of the calculated GFR GFRAA in patients over 70 years has not been determined. Clinical correlation is essential. Performed By: #### L 500.4050, L100.0100 ####[facility] [address] [place], [address] EST GFR - AA 118 mL/min Normal >60 [facility] Comment on above: Result Comment: Afri can [place] GFR Calc Performed By: #### L 500.4050, L100.0100 ####[facility] [address] [place], [address] GAP 3 Low 5-15 [facility] Comment on above: Performed By: #### L 500.4050, L100.0100 ####[facility] [address] [place], [address] GFR/1.73 sq M.predicted among non-blacks MDRD (S/P/Bld) [Vol rate/Area] 97 mL/min/{1.73_m2} Normal >60 [facility] Comment on above: Result Comment: Non- GFR Calc Performed By: #### L 500.4050, L100.0100 ####[facility] [address] [place], [address] Globulin (S) [Mass/Vol] 3.5 g/dL Normal 2.2-4.2 [facility] Comment on above: Performed By: #### L 500.4050, L100.0100 ####[facility] [address] [place], [address] Glucose [Mass/Vol] 68 mg/dL Low 74-106 [facility] Comment on above: Performed By: #### L 500.4050, L100.0100 ####[facility] [address] [place], [address] Potassium [Moles/Vol] 3.8 mmol/L Normal 3.5-5.1 [facility] Comment on above: Performed By: #### L 500.4050, L100.0100 ####[facility] [address] [place], [address] Sodium [Moles/Vol] 140 mmol/L Normal 136-145 [facility] Comment on above: Performed By: #### L 500.4050, L100.0100 ####[facility] [address] [place], [address] T PROT 6.7 g/dL Normal 6.4-8.2 [facility] Comment on above: Performed By: #### L 500.4050, L100.0100 ####[facility] [address] [place], [address] Urea nitrogen [Mass/Vol] 13 mg/dL Normal 7-18 [facility] Comment on above: Performed By: #### L 500.4050, L100.0100 ####[facility] [address] [place], [address] Eosinophil percentageOrdered By: Sanjana Thomas on 05-13-2024 Eosinophils/100 WBC (Bld) 1.5 % 0-5 [facility] Erythrocyte distribution wid th ratioOrdered By: Sanjana Thomas on 05-13-2024 Erythrocyte distribution width (RBC) [Ratio] 16.4 % High 11.6-14.6 [facility] Erythrocyte distribution wid th standard deviationOrdered By: Sanjana Thomas on 05-13-2024 Erythrocyte distribution width (RBC) [Entitic vol] 59.3 fL High 35.1-43.9 [facility] Estimated glomerular filtrat ion rate (GFR) AmericanOrdered By: Sanjana Thomas on 05-13-2024 Estimated GFR (MDRD) Amer 118 mL/min >60 [facility] Comment on above: GFR Calc Glomerular filtration rate ( GFR) estimationOrdered By: Sanjana Thomas on 05-13-2024 Estimated GFR (MDRD) Non-Af Amer 97 mL/min >60 [facility] Comment on above: Non- GFR Calc Glucose measurementOrdered B y: Sanjana Thomas on 05-13-2024 Glucose [Mass/Vol] 68 mg/dL Low 74-106 [facility] Hematocrit Auto (Bld) [Volum e fraction]Ordered By: Sanjana Thomas on 05-13-2024 Hematocrit (Bld) [Volume fraction] 42.1 % 37-47 [facility] Hemoglobin measurementOrdere d By: Sanjana Thomas on 05-13-2024 Hemoglobin (Bld) [Mass/Vol] 13.0 g/dL 12.0-15.0 [facility] Immature granulocytes/100 WB C Auto (Bld)Ordered By: Sanjana Thomas on 05-13-2024 Immature granulocytes/100 WBC (Bld) 0.300 % 0.0-0.9 [facility] Comment on above: IG% - Immature Granu locytes (promyelocytes, myelocytes and metamyelocytes) > 1% indicates that a LEFT SHIFT is Present. Laboratory - Chemistry and C hemistry - challengeOrdered By: Sanjana Thomas on 05-13-2024 AST [Catalytic activity/Vol] 15 U/L 15-37 [facility] Lymphocytes Auto (Unsp spec) [#/Vol]Ordered By: Sanjana Thomas on 05-13-2024 Lymphocytes (Bld) [#/Vol] 1.50 10*3/uL 0.83-4.51 [facility] Lymphocytes/100 WBC Auto (Un sp spec)Ordered By: Sanjana Thomas on 05-13-2024 Lymphocytes/100 WBC (Bld) 38.2 % 19-41 [facility] MCV (mean corpuscular volume ) determinationOrdered By: Sanjana Thomas on 05-13-2024 MCV (RBC) [Entitic vol] 98.4 fL 81-99 [facility] Mean corpuscular hemoglobin (MCH) determinationOrdered By: Sanjana Thomas on 05-13-2024 MCH (RBC) [Entitic mass] 30.4 pg 27.0-32.0 [facility] Mean corpuscular hemoglobin concentration (MCHC) determinationOrdered By: Sanjana Thomas on 05-13-2024 MCHC (RBC) [Mass/Vol] 30.9 g/dL Low 32-36 [facility] Mean platelet volume determi nationOrdered By: Sanjana Thomas on 05-13-2024 Platelet mean volume (Bld) [Entitic vol] 10.5 fL 6.2-12.0 [facility] Monocyte percentageOrdered B y: Sanjana Thomas on 05-13-2024 Monocytes/100 WBC (Bld) 9.7 % 0-10 [facility] Neutrophil percentageOrdered By: Sanjana Thomas on 05-13-2024 Neutrophils/100 WBC (Bld) 49.3 % 47-70 [facility] Nucleated red blood cell per centageOrdered By: Sanjana Thomas on 05-13-2024 Nucleated RBC/100 WBC (Bld) [Ratio] 0 % 0-5 [facility] Platelet countOrdered By: Jennie Thomas on 05-13-2024 Platelets (Bld) [#/Vol] 270 10*3/uL 150-450 [facility] Potassium measurementOrdered By: Sanjana Thomas on 05-13-2024 Potassium [Moles/Vol] 3.8 mmol/L 3.5-5.1 [facility] RBC Auto (Bld) [#/Vol]Ordere d By: Sanjana Thomas on 05-13-2024 RBC (Bld) [#/Vol] 4.28 10*6/uL 4.2-5.4 [facility] Serum anion gap measurementO rdered By: Sanjana Thomas on 05-13-2024 Anion gap [Moles/Vol] 3 mmol/L Low 5-15 [facility] Serum globulin measurementOr dered By: Sanjana Thomas on 05-13-2024 Globulin (S) [Mass/Vol] 3.5 g/dL 2.2-4.2 [facility] Serum or plasma alanine solitario otransferase (ALT) measurementOrdered By: Sanjana Thomas on 05-13-2024 ALT [Catalytic activity/Vol] 17 U/L 13-56 [facility] Serum or plasma albumin cesilia urement (mass/volume)Ordered By: Sanjana Thomas on 05-13-2024 Albumin [Mass/Vol] 3.2 g/dL 3.2-5.0 [facility] Serum or plasma alkaline liv sphatase measurementOrdered By: Sanjana Thomas on 05-13-2024 ALP [Catalytic activity/Vol] 83 U/L 45-117 [facility] Serum or plasma calcium cesilia urement (mass/volume)Ordered By: Sanjana Thomas on 05-13-2024 Calcium [Mass/Vol] 8.7 mg/dL 8.5-10.1 [facility] Serum or plasma creatinine m easurement (mass/volume)Ordered By: Sanjana Thomas on 05-13-2024 Creatinine [Mass/Vol] 0.63 mg/dL 0.55-1.02 [facility] Comment on above: The validity of the calculated GFR & GFRAA in patients over 70 years has not been determined. Clinical correlation is essential. Serum or plasma urea nitroge n measurement (mass/volume)Ordered By: Sanjana Thomas on 05-13-2024 Urea nitrogen [Mass/Vol] 13 mg/dL 7-18 [facility] Sodium levelOrdered By: Alvarez Thomas on 05-13-2024 Sodium [Moles/Vol] 140 mmol/L 136-145 [facility] Total proteinOrdered By: Eitan Thomas on 05-13-2024 Protein [Mass/Vol] 6.7 g/dL 6.4-8.2 [facility] White blood cell (WBC) count Ordered By: Sanjana Thomas on 05-13-2024 WBC (Bld) [#/Vol] 3.9 10*3/uL Low 4.4-11.0 [facility] Gastroenterology Visit Repor ton 04-19-2024 Gastroenterology Visit Report [facility] [address] [place] [address] OFFICE VISIT Date of Service: 04/19/24 MR#: [id number] Acct: [id number] Name: ANNE DUARTE GENA Rep #: [id number] : 1945 Provider: Stephen Carrizales DO Age/Sex: 78/F Location: [facility] Status: Signed Intake Vital Signs 12/10/21 13:25 [...] toilet paper for two weeks. *BGI established 3.. noting BRB and clots on toilet paper, with mucus/fecal leakage has been new; lower abdominal pain prior to BM and resolves following.BM are typically formed. CT abd/pel 3.31. aortic surgical clips, ?lymph node resection; urinary [...] with rare cryptitis. ? Start balsalazide OV 09.19.21 with balsalazide start she has had an improvement in symptoms; continue OV 8 continues with balsalazide BID which is effective, can cause insomnia if taken too late in the day. ? (more content not included)... Normal [facility] Absolute lymphocyte countOrd ered By: Bryan Blackmon on 09-03-2023 Lymphocytes Auto (Unsp spec) [#/Vol] 0.58 10*3/uL 0.83-4.51 [facility] Activated partial thrombopla stin time (aPTT) in platelet poor plasma by coagulation aOrdered By: Bryan Blackmon on 09-03-2023 aPTT Coag (PPP) [Time] 34.2 s 24.1-36.2 [facility] Automated lymphocyte count a s percentage of total leukocytesOrdered By: Bryan Blackmon on 09-03-2023 Lymphocytes/100 WBC Auto (Unsp spec) 15.9 % 19-41 [facility] Basophil percentageOrdered B y: Bryan Blackmon on 09-03-2023 Basophils/100 WBC (Bld) 0.5 % 0-1 [facility] Chloride [Moles/Vol] 101 mmol/L 98-107 [facility] Eosinophils/100 WBC (Bld) 0.3 % 0-5 [facility] Glucose [Mass/Vol] 109 mg/dL 74-106 [facility] Comment on above: Fasting Glucose resu lt from 100 to 125 mg/dL suggests IMPAIRED HOMEOSTASIS per A.D.A. criteria. Hemoglobin (Bld) [Mass/Vol] 13.5 g/dL 12.0-15.0 [facility] Monocytes/100 WBC (Bld) 9.1 % 0-10 [facility] Neutrophils (Bld) [#/Vol] 2.7 10*3/uL 2.0-7.7 [facility] Neutrophils/100 WBC (Bld) 73.9 % 47-70 [facility] Potassium [Moles/Vol] 3.8 mmol/L 3.5-5.1 [facility] Sodium [Moles/Vol] 135 mmol/L 136-145 [facility] WBC (Bld) [#/Vol] 3.6 10*3/uL 4.4-11.0 [facility] Blood manual differential co mment interpretation (narrative result)Ordered By: Bryan Blackmon on 09-03-2023 Manual differential comment Pietro (Bld) [Interp] SEE COMMENT [facility] Comment on above: LYMPHOPENIA NOTED Blood platelet adequacy dete ction by light microscopyOrdered By: Bryan Blackmon on 09-03-2023 Platelets LM Ql (Bld) ADEQUATE ADEQ [facility] Determination of erythrocyte mean corpuscular volume (MCV)Ordered By: Bryan Blackmon on 09-03-2023 MCV (RBC) [Entitic vol] 94.1 fL 81-99 [facility] Erythrocyte distribution wid th ratioOrdered By: Bryan Blackmon on 09-03-2023 Erythrocyte distribution width (RBC) [Ratio] 15.3 % 11.6-14.6 [facility] Erythrocyte distribution wid th standard deviationOrdered By: Bryan Blackmon on 09-03-2023 Erythrocyte distribution width (RBC) [Entitic vol] 52.5 fL 35.1-43.9 [facility] Hematocrit Auto (Bld) [Volum e fraction]Ordered By: Bryan Blackmon on 09-03-2023 Hematocrit (Bld) [Volume fraction] 43.3 % 37-47 [facility] Immature granulocytes/100 WB C Auto (Bld)Ordered By: Bryan Blackmon on 09-03-2023 Immature granulocytes/100 WBC (Bld) 0.300 % 0.0-0.9 [facility] Comment on above: IG% - Immature Granu locytes (promyelocytes, myelocytes and metamyelocytes) > 1% indicates that a LEFT SHIFT is Present. Laboratory - Chemistry and C hemistry - challengeOrdered By: Bryan Blackmon on 09-03-2023 CO2 [Moles/Vol] 29.0 mmol/L 21.0-32.0 [facility] Urea nitrogen/Creatinine [Mass ratio] 17.8 mg/mg 10-20 [facility] Laboratory - CoagulationOrde red By: Bryan Blackmon on 09-03-2023 INR Coag (Bld) [Relative time] 1.2 {INR} [facility] PT Coag (PPP) [Time] 14.7 s 11.7-14.9 [facility] Laboratory - Hematology and Cell countsOrdered By: Bryan Balckmon on 09-03-2023 Anisocytosis Ql (Bld) [facility] MCH (RBC) [Entitic mass] 29.3 pg 27.0-32.0 [facility] MCHC (RBC) [Mass/Vol] 31.2 g/dL 32-36 [facility] Nucleated RBC/100 WBC (Bld) [Ratio] 0 % 0-5 [facility] Platelet mean volume (Bld) [Entitic vol] 10.4 fL 6.2-12.0 [facility] Platelets (Bld) [#/Vol] 240 10*3/uL 150-450 [facility] Laboratory - Microbiology an d Antimicrobial susceptibilityOrdered By: Bryan Blackmon on 09-03-2023 SARS-CoV-2 (COVID-19) RNA JONATHAN+probe Ql (Unsp spec) RSV [facility] Macrocytes detectionOrdered By: Bryan Blackmon on 09-03-2023 Macrocytes Ql (Bld) [facility] No Panel InformationOrdered By: Bryan Blackmon on 09-03-2023 Estimated Creatinine Clearance Calc 62.77 ml/min [facility] Estimated GFR (MDRD) Amer 152 mL/min >60 [facility] Comment on above: GFR Calc Estimated GFR (MDRD) Non-Af Amer 125 mL/min >60 [facility] Comment on above: Non- GFR Calc RBC Auto (Bld) [#/Vol]Ordere d By: Bryan Blackmon on 09-03-2023 RBC (Bld) [#/Vol] 4.60 10*6/uL 4.2-5.4 [facility] RBC morphologyOrdered By: Rachel Blackmon on 09-03-2023 RBC morphology finding Nom (Bld) N CHROM NORMAL NORM C&C [facility] Serum or plasma calcium cesilia urement (mass/volume)Ordered By: Bryan Blackmon on 09-03-2023 Calcium [Mass/Vol] 8.5 mg/dL 8.5-10.1 [facility] Serum or plasma creatinine m easurement (mass/volume)Ordered By: Bryan Blackmon on 09-03-2023 Creatinine [Mass/Vol] 0.51 mg/dL 0.55-1.02 [facility] Comment on above: The validity of the calculated GFR & GFRAA in patients over 70 years has not been determined. Clinical correlation is essential. Serum or plasma urea nitroge n measurement (mass/volume)Ordered By: Bryan Blackmon on 09-03-2023 Urea nitrogen [Mass/Vol] 9 mg/dL 7-18 [facility] Thin prep Papanicolaou smear with manual screeningOrdered By: Bryan Blackmon on 09-03-2023 Thin prep Papanicolaou smear with manual screening 5 5-15 [facility] Absolute lymphocyte countOrd ered By: Sanjana Thomas on 08-13-2023 Lymphocytes Auto (Unsp spec) [#/Vol] 1.15 10*3/uL 0.83-4.51 [facility] Automated lymphocyte count a s percentage of total leukocytesOrdered By: Sanjana Thomas on 08-13-2023 Lymphocytes/100 WBC Auto (Unsp spec) 33.0 % 19-41 [facility] Basophil percentageOrdered B y: Sanjana Thomas on 08-13-2023 Basophils/100 WBC (Bld) 1.1 % 0-1 [facility] Bilirubin [Mass/Vol] 0.30 mg/dL 0.20-1.00 [facility] Comment on above: For patients on eltr ombopag therapy, use of Dimension [employer] TBIL is not recommended. Chloride [Moles/Vol] 105 mmol/L 98-107 [facility] Eosinophils/100 WBC (Bld) 1.4 % 0-5 [facility] Glucose [Mass/Vol] 88 mg/dL 74-106 [facility] Hemoglobin (Bld) [Mass/Vol] 13.2 g/dL 12.0-15.0 [facility] Monocytes/100 WBC (Bld) 9.7 % 0-10 [facility] Neutrophils (Bld) [#/Vol] 1.9 10*3/uL 2.0-7.7 [facility] Neutrophils/100 WBC (Bld) 54.5 % 47-70 [facility] Potassium [Moles/Vol] 3.9 mmol/L 3.5-5.1 [facility] Protein [Mass/Vol] 6.9 g/dL 6.4-8.2 [facility] Sodium [Moles/Vol] 141 mmol/L 136-145 [facility] WBC (Bld) [#/Vol] 3.5 10*3/uL 4.4-11.0 [facility] Determination of erythrocyte mean corpuscular volume (MCV)Ordered By: Sanjana Thomas on 08-13-2023 MCV (RBC) [Entitic vol] 96.9 fL 81-99 [facility] Erythrocyte distribution wid th ratioOrdered By: Sanjana Thomas on 08-13-2023 Erythrocyte distribution width (RBC) [Ratio] 15.2 % 11.6-14.6 [facility] Erythrocyte distribution wid th standard deviationOrdered By: Sanjana Thomas on 08-13-2023 Erythrocyte distribution width (RBC) [Entitic vol] 54.4 fL 35.1-43.9 [facility] Hematocrit Auto (Bld) [Volum e fraction]Ordered By: Sanjana Thomas on 08-13-2023 Hematocrit (Bld) [Volume fraction] 43.2 % 37-47 [facility] Immature granulocytes/100 WB C Auto (Bld)Ordered By: Sanjana Thomas on 08-13-2023 Immature granulocytes/100 WBC (Bld) 0.300 % 0.0-0.9 [facility] Comment on above: IG% - Immature Granu locytes (promyelocytes, myelocytes and metamyelocytes) > 1% indicates that a LEFT SHIFT is Present. Laboratory - Chemistry and C hemistry - challengeOrdered By: Sanjana Thomas on 08-13-2023 Albumin/Globulin [Mass ratio] 1.0 {ratio} 0.9-2.4 [facility] ALP [Catalytic activity/Vol] 81 U/L 45-117 [facility] ALT [Catalytic activity/Vol] 14 U/L 13-56 [facility] CO2 [Moles/Vol] 33.0 mmol/L 21.0-32.0 [facility] Globulin (S) [Mass/Vol] 3.5 g/dL 2.2-4.2 [facility] Urea nitrogen/Creatinine [Mass ratio] 17.2 mg/mg 10-20 [facility] Laboratory - Hematology and Cell countsOrdered By: Sanjana Thomas on 08-13-2023 MCH (RBC) [Entitic mass] 29.6 pg 27.0-32.0 [facility] MCHC (RBC) [Mass/Vol] 30.6 g/dL 32-36 [facility] Nucleated RBC/100 WBC (Bld) [Ratio] 0 % 0-5 [facility] Platelet mean volume (Bld) [Entitic vol] 10.6 fL 6.2-12.0 [facility] Platelets (Bld) [#/Vol] 293 10*3/uL 150-450 [facility] No Panel InformationOrdered By: Sanjana Thomas on 08-13-2023 Estimated GFR (MDRD) Amer 96 mL/min >60 [facility] Comment on above: GFR Calc Estimated GFR (MDRD) Non-Af Amer 79 mL/min >60 [facility] Comment on above: Non- GFR Calc RBC Auto (Bld) [#/Vol]Ordere d By: Sanjana Thomas on 08-13-2023 RBC (Bld) [#/Vol] 4.46 10*6/uL 4.2-5.4 [facility] Serum or plasma calcium cesilia urement (mass/volume)Ordered By: Sanjana Thomas on 08-13-2023 Calcium [Mass/Vol] 8.8 mg/dL 8.5-10.1 [facility] Serum or plasma creatinine m easurement (mass/volume)Ordered By: Sanjana Thomas on 08-13-2023 Creatinine [Mass/Vol] 0.75 mg/dL 0.55-1.02 [facility] Comment on above: The validity of the calculated GFR & GFRAA in patients over 70 years has not been determined. Clinical correlation is essential. Serum or plasma urea nitroge n measurement (mass/volume)Ordered By: Sanjana Thomas on 08-13-2023 Urea nitrogen [Mass/Vol] 13 mg/dL 7-18 [facility] Thin prep Papanicolaou smear with manual screeningOrdered By: Sanjanayola Thomas on 08-13-2023 Thin prep Papanicolaou smear with manual screening 3.4 g/dL 3.2-5.0 [facility] Thin prep Papanicolaou smear with manual screening 17 U/L 15-37 [facility] Thin prep Papanicolaou smear with manual screening 3 5-15 [facility] Absolute lymphocyte countOrd ered By: Sanjana Thomas on 05-19-2023 Lymphocytes Auto (Unsp spec) [#/Vol] 1.17 10*3/uL 0.83-4.51 [facility] Basophil percentageOrdered B y: Sanjana Thomas on 05-19-2023 Basophils/100 WBC (Bld) 0.8 % 0-1 [facility] Bilirubin [Mass/Vol] 0.30 mg/dL 0.20-1.00 [facility] Comment on above: For patients on eltr ombopag therapy, use of Dimension [employer] TBIL is not recommended. Chloride [Moles/Vol] 105 mmol/L 98-107 [facility] Eosinophils/100 WBC (Bld) 0.8 % 0-5 [facility] Glucose [Mass/Vol] 90 mg/dL 74-106 [facility] Neutrophils (Bld) [#/Vol] 2.2 10*3/uL 2.0-7.7 [facility] Neutrophils/100 WBC (Bld) 58.8 % 47-70 [facility] Potassium [Moles/Vol] 3.6 mmol/L 3.5-5.1 [facility] Protein [Mass/Vol] 7.1 g/dL 6.4-8.2 [facility] Sodium [Moles/Vol] 141 mmol/L 136-145 [facility] WBC (Bld) [#/Vol] 3.8 10*3/uL 4.4-11.0 [facility] Blood erythrocytes count (nu mber/volume)Ordered By: Sanjana Thomas on 05-19-2023 RBC (Bld) [#/Vol] 4.63 10*6/uL 4.2-5.4 [facility] Blood hemoglobin measurement (mass/volume)Ordered By: Sanjana Thomas on 05-19-2023 Hemoglobin (Bld) [Mass/Vol] 13.5 g/dL 12.0-15.0 [facility] Blood lymphocytes/100 leukoc ytesOrdered By: Sanjana Thomas on 05-19-2023 Lymphocytes/100 WBC (Bld) 30.9 % 19-41 [facility] Blood monocytes/100 leukocyt esOrdered By: Sanjana Thomas on 05-19-2023 Monocytes/100 WBC (Bld) 8.4 % 0-10 [facility] Blood platelet mean volumeOr dered By: Sanjana Thomas on 05-19-2023 Platelet mean volume (Bld) [Entitic vol] 10.4 fL 6.2-12.0 [facility] Determination of erythrocyte mean corpuscular volume (MCV)Ordered By: Sanjana Thomas on 05-19-2023 MCV (RBC) [Entitic vol] 98.3 fL 81-99 [facility] Hematocrit Auto (Bld) [Volum e fraction]Ordered By: Sanjana Thomas on 05-19-2023 Hematocrit (Bld) [Volume fraction] 45.5 % 37-47 [facility] Laboratory - Chemistry and C hemistry - challengeOrdered By: [facility] William on 05-19-2023 ALP [Catalytic activity/Vol] 87 U/L 45-117 [facility] ALT [Catalytic activity/Vol] 19 U/L 13-56 [facility] CO2 [Moles/Vol] 31.0 mmol/L 21.0-32.0 [facility] Globulin (S) [Mass/Vol] 3.7 g/dL 2.2-4.2 [facility] Urea nitrogen/Creatinine [Mass ratio] 17.9 mg/mg 10-20 [facility] Laboratory - Hematology and Cell countsOrdered By: Sanjana Thomas on 05-19-2023 Erythrocyte distribution width (RBC) [Entitic vol] 55.1 fL 35.1-43.9 [facility] Erythrocyte distribution width (RBC) [Ratio] 15.3 % 11.6-14.6 [facility] Immature granulocytes/100 WBC (Bld) 0.300 % 0.0-0.9 [facility] Comment on above: IG% - Immature Granu locytes (promyelocytes, myelocytes and metamyelocytes) > 1% indicates that a LEFT SHIFT is Present. MCH (RBC) [Entitic mass] 29.2 pg 27.0-32.0 [facility] Nucleated RBC/100 WBC (Bld) [Ratio] 0 % 0-5 [facility] MCHC Auto (RBC) [Mass/Vol]Or dered By: Sanjana Thomas on 05-19-2023 MCHC (RBC) [Mass/Vol] 29.7 g/dL 32-36 [facility] [place] No Panel InformationOrdered By: Sanjana Thomas on 05-19-2023 Estimated GFR (MDRD) Amer 100 mL/min >60 [facility] Comment on above: GFR Calc Estimated GFR (MDRD) Non-Af Amer 83 mL/min >60 [facility] Comment on above: Non- GFR Calc Platelets bldOrdered By: Eitan Thomas on 05-19-2023 Platelets (Bld) [#/Vol] 300 10*3/uL 150-450 [facility] Serum or plasma albumin cesilia urement (mass/volume)Ordered By: Sanjana Thomas on 05-19-2023 Albumin [Mass/Vol] 3.4 g/dL 3.2-5.0 [facility] Serum or plasma albumin/glob ulin mass ratioOrdered By: Sanjana Thomas on 05-19-2023 Albumin/Globulin [Mass ratio] 0.9 {ratio} 0.9-2.4 [facility] Serum or plasma calcium cesilia urement (mass/volume)Ordered By: Sanjana Thomas on 05-19-2023 Calcium [Mass/Vol] 8.5 mg/dL 8.5-10.1 [facility] Serum or plasma creatinine m easurement (mass/volume)Ordered By: Sanjana Thomas on 05-19-2023 Creatinine [Mass/Vol] 0.73 mg/dL 0.55-1.02 [facility] [place] [facility] Comment on above: The validity of the calculated GFR & GFRAA in patients over 70 years has not been determined. Clinical correlation is essential. Serum or plasma urea nitroge n measurement (mass/volume)Ordered By: Sanjana Thomas on 05-19-2023 Urea nitrogen [Mass/Vol] 13 mg/dL 7-18 [facility] Thin prep Papanicolaou smear with manual screeningOrdered By: Sanjana Thomas on 05-19-2023 Thin prep Papanicolaou smear with manual screening 23 U/L 15-37 [facility] Thin prep Papanicolaou smear with manual screening 5 5-15 [facility] Absolute lymphocyte countOrd ered By: Sanjana Thomas on 02-18-2023 Lymphocytes Auto (Unsp spec) [#/Vol] 1.24 10*3/uL 0.83-4.51 [facility] Basophil percentageOrdered B y: Sanjana Thomas on 02-18-2023 Basophils/100 WBC (Bld) 1.1 % 0-1 [facility] Bilirubin [Mass/Vol] 0.20 mg/dL 0.20-1.00 [facility] Comment on above: For patients on eltr ombopag therapy, use of Dimension [employer] TBIL is not recommended. Chloride [Moles/Vol] 106 mmol/L 98-107 [facility] Eosinophils/100 WBC (Bld) 1.1 % 0-5 [facility] Glucose [Mass/Vol] 82 mg/dL 74-106 [facility] Neutrophils (Bld) [#/Vol] 2.1 10*3/uL 2.0-7.7 [facility] Neutrophils/100 WBC (Bld) 56.0 % 47-70 [facility] Potassium [Moles/Vol] 3.9 mmol/L 3.5-5.1 [facility] [place] [facility] Protein [Mass/Vol] 6.9 g/dL 6.4-8.2 [facility] Sodium [Moles/Vol] 141 mmol/L 136-145 [facility] WBC (Bld) [#/Vol] 3.8 10*3/uL 4.4-11.0 [facility] Blood erythrocytes count (nu mber/volume)Ordered By: Sanjana Thomas on 02-18-2023 RBC (Bld) [#/Vol] 4.49 10*6/uL 4.2-5.4 [facility] Blood hemoglobin measurement (mass/volume)Ordered By: Sanjana Thomas on 02-18-2023 Hemoglobin (Bld) [Mass/Vol] 13.5 g/dL 12.0-15.0 [facility] Blood lymphocytes/100 leukoc ytesOrdered By: Sanjanayola Thomas on 02-18-2023 Lymphocytes/100 WBC (Bld) 32.6 % 19-41 [facility] Blood monocytes/100 leukocyt esOrdered By: Sanjana Thomas on 02-18-2023 Monocytes/100 WBC (Bld) 8.9 % 0-10 [facility] Blood platelet mean volumeOr dered By: Sanjana Thomas on 02-18-2023 Platelet mean volume (Bld) [Entitic vol] 10.7 fL 6.2-12.0 [facility] Determination of erythrocyte mean corpuscular volume (MCV)Ordered By: Sanjana Thomas on 02-18-2023 MCV (RBC) [Entitic vol] 99.6 fL 81-99 [facility] Hematocrit Auto (Bld) [Volum e fraction]Ordered By: [facility] William on 02-18-2023 Hematocrit (Bld) [Volume fraction] 44.7 % 37-47 [facility] Laboratory - Chemistry and C hemistry - challengeOrdered By: [facility] William on 02-18-2023 ALP [Catalytic activity/Vol] 84 U/L 45-117 [facility] ALT [Catalytic activity/Vol] 19 U/L 13-56 [facility] CO2 [Moles/Vol] 33.0 mmol/L 21.0-32.0 [facility] Globulin (S) [Mass/Vol] 3.6 g/dL 2.2-4.2 [facility] Urea nitrogen/Creatinine [Mass ratio] 14.5 mg/mg 10-20 [facility] Laboratory - Hematology and Cell countsOrdered By: Sanjana Thomas on 02-18-2023 Erythrocyte distribution width (RBC) [Entitic vol] 56.4 fL 35.1-43.9 [facility] Erythrocyte distribution width (RBC) [Ratio] 15.4 % 11.6-14.6 [facility] Immature granulocytes/100 WBC (Bld) 0.300 % 0.0-0.9 [facility] Comment on above: IG% - Immature Granu locytes (promyelocytes, myelocytes and metamyelocytes) > 1% indicates that a LEFT SHIFT is Present. MCH (RBC) [Entitic mass] 30.1 pg 27.0-32.0 [facility] Nucleated RBC/100 WBC (Bld) [Ratio] 0 % 0-5 [facility] MCHC Auto (RBC) [Mass/Vol]Or dered By: Sanjana Thomas on 02-18-2023 MCHC (RBC) [Mass/Vol] 30.2 g/dL 32-36 [facility] [place] [facility] No Panel InformationOrdered By: Sanjana Thomas on 02-18-2023 Estimated GFR (MDRD) Amer 106 mL/min >60 [facility] Comment on above: GFR Calc Estimated GFR (MDRD) Non-Af Amer 87 mL/min >60 [facility] Comment on above: Non- GFR Calc Platelets bldOrdered By: Eitan Thomas on 02-18-2023 Platelets (Bld) [#/Vol] 284 10*3/uL 150-450 [facility] Serum or plasma albumin cesilia urement (mass/volume)Ordered By: Sanjana Thomas on 02-18-2023 Albumin [Mass/Vol] 3.3 g/dL 3.2-5.0 [facility] Serum or plasma albumin/glob ulin mass ratioOrdered By: Sanjana Thomas on 02-18-2023 Albumin/Globulin [Mass ratio] 0.9 {ratio} 0.9-2.4 [facility] Serum or plasma calcium cesilia urement (mass/volume)Ordered By: Sanjana Thomas on 02-18-2023 Calcium [Mass/Vol] 8.6 mg/dL 8.5-10.1 [facility] Serum or plasma creatinine m easurement (mass/volume)Ordered By: Sanjana Thomas on 02-18-2023 Creatinine [Mass/Vol] 0.69 mg/dL 0.55-1.02 [facility] [place] [facility] Comment on above: The validity of the calculated GFR & GFRAA in patients over 70 years has not been determined. Clinical correlation is essential. Serum or plasma urea nitroge n measurement (mass/volume)Ordered By: Sanjana Thomas on 02-18-2023 Urea nitrogen [Mass/Vol] 10 mg/dL 7-18 [facility] Thin prep Papanicolaou smear with manual screeningOrdered By: Sanjana Thomas on 02-18-2023 Thin prep Papanicolaou smear with manual screening 17 U/L 15-37 [facility] Thin prep Papanicolaou smear with manual screening 2 5-15 [facility] Culture, urineOrdered By: Sammie Pressley on 01-02-2023 Bacteria identified Cx Nom (U) Mixed Gram Pos & Gram Neg Org [facility] No Panel InformationOrdered By: Stephen Carrizales on 12-19-2022 Stool Calprotectin 153 ug/g 0-120 [facility] Comment on above: Concentration Interp retation Follow-Up< 5 - 50 ug/g Normal None>50 -120 ug/g Borderline Re-evaluate in 4-6 weeks >120 ug/g Abnormal Repeat as clinically indicatedPerformed at: - [facility] [id number] Director: Snow Sun MD, Phone: [phone] Stool lactoferrin detection by immunoassayOrdered By: Stephen Carrizales on 12-19-2022 Lactoferrin IA Ql (Stl) [facility] Absolute lymphocyte countOrd ered By: Stephen Carrizales on 12-03-2022 Lymphocytes Auto (Unsp spec) [#/Vol] 1.14 10*3/uL 0.83-4.51 [facility] Basophil percentageOrdered B y: Stephen Carrizales on 12-03-2022 Basophils/100 WBC (Bld) 0.9 % 0-1 [facility] Bilirubin [Mass/Vol] 0.30 mg/dL 0.20-1.00 [facility] Comment on above: For patients on eltr ombopag therapy, use of Dimension [employer] TBIL is not recommended. Chloride [Moles/Vol] 106 mmol/L 98-107 [facility] Eosinophils/100 WBC (Bld) 1.2 % 0-5 [facility] Glucose [Mass/Vol] 65 mg/dL 74-106 [facility] Neutrophils (Bld) [#/Vol] 1.9 10*3/uL 2.0-7.7 [facility] Neutrophils/100 WBC (Bld) 55.0 % 47-70 [facility] Potassium [Moles/Vol] 3.5 mmol/L 3.5-5.1 [facility] [place] Protein [Mass/Vol] 6.9 g/dL 6.4-8.2 [facility] Sodium [Moles/Vol] 141 mmol/L 136-145 [facility] WBC (Bld) [#/Vol] 3.5 10*3/uL 4.4-11.0 [facility] Blood erythrocytes count (nu mber/volume)Ordered By: Stephen Carrizales on 12-03-2022 RBC (Bld) [#/Vol] 4.50 10*6/uL 4.2-5.4 [facility] Blood hemoglobin measurement (mass/volume)Ordered By: Stephen Carrizales on 12-03-2022 Hemoglobin (Bld) [Mass/Vol] 13.3 g/dL 12.0-15.0 [facility] Blood lymphocytes/100 leukoc ytesOrdered By: Stephen Carrizales on 12-03-2022 Lymphocytes/100 WBC (Bld) 33.0 % 19-41 [facility] Blood monocytes/100 leukocyt esOrdered By: Stephen Carrizales on 12-03-2022 Monocytes/100 WBC (Bld) 9.9 % 0-10 [facility] Blood platelet mean volumeOr dered By: Stephen Carrizales on 12-03-2022 Platelet mean volume (Bld) [Entitic vol] 10.8 fL 6.2-12.0 [facility] Determination of erythrocyte mean corpuscular volume (MCV)Ordered By: Stephen Carrizales on 12-03-2022 MCV (RBC) [Entitic vol] 97.3 fL 81-99 [facility] Erythrocyte sedimentation ra teOrdered By: Stephen Carrizales on 12-03-2022 ESR (Bld) [Velocity] 9 mm/h 0-30 [facility] Hematocrit Auto (Bld) [Volum e fraction]Ordered By: Stephen Carrizales on 12-03-2022 Hematocrit (Bld) [Volume fraction] 43.8 % 37-47 [facility] Laboratory - Chemistry and C hemistry - challengeOrdered By: Stephen Carrizales on 12-03-2022 ALP [Catalytic activity/Vol] 85 U/L 45-117 [facility] ALT [Catalytic activity/Vol] 17 U/L 13-56 [facility] CO2 [Moles/Vol] 30.0 mmol/L 21.0-32.0 [facility] Globulin (S) [Mass/Vol] 3.6 g/dL 2.2-4.2 [facility] Urea nitrogen/Creatinine [Mass ratio] 16.7 mg/mg 10-20 [facility] Laboratory - Hematology and Cell countsOrdered By: Stephen Carrizales on 12-03-2022 Erythrocyte distribution width (RBC) [Entitic vol] 55.9 fL 35.1-43.9 [facility] Erythrocyte distribution width (RBC) [Ratio] 15.6 % 11.6-14.6 [facility] Immature granulocytes/100 WBC (Bld) 0.000 % 0.0-0.9 [facility] Comment on above: IG% - Immature Granu locytes (promyelocytes, myelocytes and metamyelocytes) > 1% indicates that a LEFT SHIFT is Present. MCH (RBC) [Entitic mass] 29.6 pg 27.0-32.0 [facility] Nucleated RBC/100 WBC (Bld) [Ratio] 0 % 0-5 [facility] MCHC Auto (RBC) [Mass/Vol]Or dered By: Stephen Carrizales on 12-03-2022 MCHC (RBC) [Mass/Vol] 30.4 g/dL 32-36 [facility] [place] No Panel InformationOrdered By: Stephen Carrizales on 12-03-2022 Estimated GFR (MDRD) Amer 93 mL/min >60 [facility] Comment on above: GFR Calc Estimated GFR (MDRD) Non-Af Amer 77 mL/min >60 [facility] Comment on above: Non- GFR Calc Platelets bldOrdered By: Max Carrizales on 12-03-2022 Platelets (Bld) [#/Vol] 274 10*3/uL 150-450 [facility] Serum or plasma C reactive p rotein measurement (mass/volume)Ordered By: Stephen Carrizales on 12-03-2022 CRP [Mass/Vol] 9.45 mg/L 0.0-3.0 [facility] Comment on above: C-Reactive Protein ( CRP) provides useful information for thediagnosis, therapy and monitoring of inflammatory processesand associated diseases. For the evaluation of Relative Riskfor Cardiovascular Disease, a High Sensitivity CRP (HSCRP)should be ordered. Serum or plasma albumin cesilia urement (mass/volume)Ordered By: Stephen Carrizales on 12-03-2022 Albumin [Mass/Vol] 3.3 g/dL 3.2-5.0 [facility] Serum or plasma albumin/glob ulin mass ratioOrdered By: Stephen Carrizales on 12-03-2022 Albumin/Globulin [Mass ratio] 0.9 {ratio} 0.9-2.4 [facility] Serum or plasma calcium cesilia urement (mass/volume)Ordered By: Stephen Carrizales on 12-03-2022 Calcium [Mass/Vol] 8.3 mg/dL 8.5-10.1 [facility] Serum or plasma carcinoembry onic antigen measurement (mass/volume)Ordered By: Stephen Carrizales on 12-03-2022 Carcinoembryonic Ag [Mass/Vol] 5.5 ng/mL 0.0-4.7 [facility] Comment on above: Nonsmokers <3.9 Smok ers <5.6[employer] Electrochemiluminescence Immunoassay(ECLIA)Values obtained with different assay methods or kitscannot be used interchangeably. Results cannot beinterpreted as absolute evidence of the presence orabsence of malignant disease.Performed at: [email or web address] [id number] Director: Cirilo Turner PhD, Phone: [phone] Serum or plasma creatinine m easurement (mass/volume)Ordered By: Stephen Carrizales on 12-03-2022 Creatinine [Mass/Vol] 0.78 mg/dL 0.55-1.02 [facility] [place] [facility] Comment on above: The validity of the calculated GFR & GFRAA in patients over 70 years has not been determined. Clinical correlation is essential. Serum or plasma urea nitroge n measurement (mass/volume)Ordered By: Stephen Carrizales on 12-03-2022 Urea nitrogen [Mass/Vol] 13 mg/dL 7-18 [facility] Thin prep Papanicolaou smear with manual screeningOrdered By: Stephen Carrizales on 12-03-2022 Thin prep Papanicolaou smear with manual screening 18 U/L 15-37 [facility] Thin prep Papanicolaou smear with manual screening 5 5-15 [facility] Absolute lymphocyte countOrd ered By: Dr. Thomas on 09-02-2022 Lymphocytes Auto (Unsp spec) [#/Vol] 1.17 10*3/uL 0.83-4.51 [facility] Basophil percentageOrdered B y: Dr. Thomas on 09-02-2022 Basophils/100 WBC (Bld) 1.1 % 0-1 [facility] Bilirubin [Mass/Vol] 0.30 mg/dL 0.20-1.00 [facility] Comment on above: For patients on eltr ombopag therapy, use of Dim[employer] TBIL is not recommended. Chloride [Moles/Vol] 103 mmol/L 98-107 [facility] Eosinophils/100 WBC (Bld) 1.1 % 0-5 [facility] Glucose [Mass/Vol] 99 mg/dL 74-106 [facility] Neutrophils (Bld) [#/Vol] 2.1 10*3/uL 2.0-7.7 [facility] Neutrophils/100 WBC (Bld) 55.8 % 47-70 [facility] Potassium [Moles/Vol] 3.6 mmol/L 3.5-5.1 [facility] [place] [facility] Protein [Mass/Vol] 7.4 g/dL 6.4-8.2 [facility] Sodium [Moles/Vol] 139 mmol/L 136-145 [facility] WBC (Bld) [#/Vol] 3.7 10*3/uL 4.4-11.0 [facility] Blood erythrocytes count (nu mber/volume)Ordered By: Dr. Thomas on 09-02-2022 RBC (Bld) [#/Vol] 4.82 10*6/uL 4.2-5.4 [facility] Blood hemoglobin measurement (mass/volume)Ordered By: Dr. Thomas on 09-02-2022 Hemoglobin (Bld) [Mass/Vol] 13.8 g/dL 12.0-15.0 [facility] Blood lymphocytes/100 leukoc ytesOrdered By: Dr. Thomas on 09-02-2022 Lymphocytes/100 WBC (Bld) 31.7 % 19-41 [facility] Blood monocytes/100 leukocyt esOrdered By: Dr. Thomas on 09-02-2022 Monocytes/100 WBC (Bld) 10.0 % 0-10 [facility] Blood platelet mean volumeOr dered By: Dr. Thomas on 09-02-2022 Platelet mean volume (Bld) [Entitic vol] 10.8 fL 6.2-12.0 [facility] Determination of erythrocyte mean corpuscular volume (MCV)Ordered By: Dr. Thomas on 09-02-2022 MCV (RBC) [Entitic vol] 97.1 fL 81-99 [facility] Hematocrit Auto (Bld) [Volum e fraction]Ordered By: Dr. Thomas on 09-02-2022 Hematocrit (Bld) [Volume fraction] 46.8 % 37-47 [facility] Laboratory - Chemistry and C hemistry - challengeOrdered By: Dr. Thomas on 09-02-2022 ALP [Catalytic activity/Vol] 92 U/L 45-117 [facility] ALT [Catalytic activity/Vol] 25 U/L 13-56 [facility] CO2 [Moles/Vol] 32.0 mmol/L 21.0-32.0 [facility] Globulin (S) [Mass/Vol] 3.9 g/dL 2.2-4.2 [facility] Urea nitrogen/Creatinine [Mass ratio] 14.5 mg/mg 10-20 [facility] Laboratory - Hematology and Cell countsOrdered By: Dr. Thomas on 09-02-2022 Erythrocyte distribution width (RBC) [Entitic vol] 54.1 fL 35.1-43.9 [facility] Erythrocyte distribution width (RBC) [Ratio] 15.2 % 11.6-14.6 [facility] Immature granulocytes/100 WBC (Bld) 0.300 % 0.0-0.9 [facility] Comment on above: IG% - Immature Granu locytes (promyelocytes, myelocytes and metamyelocytes) > 1% indicates that a LEFT SHIFT is Present. MCH (RBC) [Entitic mass] 28.6 pg 27.0-32.0 [facility] Nucleated RBC/100 WBC (Bld) [Ratio] 0 % 0-5 [facility] MCHC Auto (RBC) [Mass/Vol]Or dered By: Dr. Thomas on 09-02-2022 MCHC (RBC) [Mass/Vol] 29.5 g/dL 32-36 [facility] [place] [facility] No Panel InformationOrdered By: Dr. Thomas on 09-02-2022 Estimated GFR (MDRD) Amer 106 mL/min >60 [facility] Comment on above: GFR Calc Estimated GFR (MDRD) Non-Af Amer 88 mL/min >60 [facility] Comment on above: Non- GFR Calc Platelets bldOrdered By: Dr. Thomas on 09-02-2022 Platelets (Bld) [#/Vol] 292 10*3/uL 150-450 [facility] Serum or plasma albumin cesilia urement (mass/volume)Ordered By: Dr. Thomas on 09-02-2022 Albumin [Mass/Vol] 3.5 g/dL 3.2-5.0 [facility] Serum or plasma albumin/glob ulin mass ratioOrdered By: Dr. Thomas on 09-02-2022 Albumin/Globulin [Mass ratio] 0.9 {ratio} 0.9-2.4 [facility] Serum or plasma calcium cesilia urement (mass/volume)Ordered By: Dr. Thomas on 09-02-2022 Calcium [Mass/Vol] 8.7 mg/dL 8.5-10.1 [facility] Serum or plasma creatinine m easurement (mass/volume)Ordered By: Dr. Thomas on 09-02-2022 Creatinine [Mass/Vol] 0.69 mg/dL 0.55-1.02 [facility] [place] [facility] Comment on above: The validity of the calculated GFR & GFRAA in patients over 70 years has not been determined. Clinical correlation is essential. Serum or plasma urea nitroge n measurement (mass/volume)Ordered By: Dr. Thomas on 09-02-2022 Urea nitrogen [Mass/Vol] 10 mg/dL 7-18 [facility] Thin prep Papanicolaou smear with manual screeningOrdered By: Dr. Thomas on 09-02-2022 Thin prep Papanicolaou smear with manual screening 24 U/L 15-37 [facility] Thin prep Papanicolaou smear with manual screening 4 5-15 [facility] Erythrocyte sedimentation ra teOrdered By: Nisa Frederick on 07-12-2022 ESR (Bld) [Velocity] 12 mm/h 0-30 [facility] Serum or plasma C reactive p rotein measurement (mass/volume)Ordered By: Nisa Frederick on 07-12-2022 CRP [Mass/Vol] 4.89 mg/L 0.0-3.0 [facility] Comment on above: C-Reactive Protein ( CRP) provides useful information for thediagnosis, therapy and monitoring of inflammatory processesand associated diseases. For the evaluation of Relative Riskfor Cardiovascular Disease, a High Sensitivity CRP (HSCRP)should be ordered. Serum or plasma carcinoembry onic antigen measurement (mass/volume)Ordered By: Nisa Frederick on 07-12-2022 Carcinoembryonic Ag [Mass/Vol] 6.2 ng/mL 0.0-4.7 [facility] Comment on above: Nonsmokers <3.9 Smok ers <5.6[employer] Electrochemiluminescence Immunoassay(ECLIA)Values obtained with different assay methods or kitscannot be used interchangeably. Results cannot beinterpreted as absolute evidence of the presence orabsence of malignant disease.Performed at: [employer] [id number] Director: Cirilo Turner PhD, Phone: [phone] Absolute lymphocyte countOrd ered By: Dr. Thomas on 06-28-2022 Lymphocytes Auto (Unsp spec) [#/Vol] 1.22 10*3/uL 0.83-4.51 [facility] Basophil percentageOrdered B y: Dr. Thomas on 06-28-2022 Basophils/100 WBC (Bld) 1.1 % 0-1 [facility] Bilirubin [Mass/Vol] 0.30 mg/dL 0.20-1.00 [facility] Comment on above: For patients on eltr ombopag therapy, use of Dim[employer] TBIL is not recommended. Chloride [Moles/Vol] 105 mmol/L 98-107 [facility] Eosinophils/100 WBC (Bld) 2.2 % 0-5 [facility] Glucose [Mass/Vol] 76 mg/dL 74-106 [facility] Neutrophils (Bld) [#/Vol] 1.9 10*3/uL 2.0-7.7 [facility] Neutrophils/100 WBC (Bld) 53.4 % 47-70 [facility] Potassium [Moles/Vol] 3.6 mmol/L 3.5-5.1 [facility] [place] [facility] Protein [Mass/Vol] 7.1 g/dL 6.4-8.2 [facility] Sodium [Moles/Vol] 141 mmol/L 136-145 [facility] WBC (Bld) [#/Vol] 3.6 10*3/uL 4.4-11.0 [facility] Blood erythrocytes count (nu mber/volume)Ordered By: Dr. Thomas on 06-28-2022 RBC (Bld) [#/Vol] 4.57 10*6/uL 4.2-5.4 [facility] Blood hemoglobin measurement (mass/volume)Ordered By: Dr. Thomas on 06-28-2022 Hemoglobin (Bld) [Mass/Vol] 13.4 g/dL 12.0-15.0 [facility] Blood lymphocytes/100 leukoc ytesOrdered By: Dr. Thomas on 06-28-2022 Lymphocytes/100 WBC (Bld) 33.6 % 19-41 [facility] Blood monocytes/100 leukocyt esOrdered By: Dr. Thomas on 06-28-2022 Monocytes/100 WBC (Bld) 9.4 % 0-10 [facility] Blood platelet mean volumeOr dered By: Dr. Thomas on 06-28-2022 Platelet mean volume (Bld) [Entitic vol] 10.6 fL 6.2-12.0 [facility] Determination of erythrocyte mean corpuscular volume (MCV)Ordered By: Dr. Thomas on 06-28-2022 MCV (RBC) [Entitic vol] 96.5 fL 81-99 [facility] Hematocrit Auto (Bld) [Volum e fraction]Ordered By: Dr. Thomas on 06-28-2022 Hematocrit (Bld) [Volume fraction] 44.1 % 37-47 [facility] Laboratory - Chemistry and C hemistry - challengeOrdered By: Dr. Thomas on 06-28-2022 ALP [Catalytic activity/Vol] 91 U/L 45-117 [facility] ALT [Catalytic activity/Vol] 17 U/L 13-56 [facility] CO2 [Moles/Vol] 30.0 mmol/L 21.0-32.0 [facility] Globulin (S) [Mass/Vol] 3.7 g/dL 2.2-4.2 [facility] Urea nitrogen/Creatinine [Mass ratio] 16.3 mg/mg 10-20 [facility] Laboratory - Hematology and Cell countsOrdered By: Dr. Thomas on 06-28-2022 Erythrocyte distribution width (RBC) [Entitic vol] 54.9 fL 35.1-43.9 [facility] Erythrocyte distribution width (RBC) [Ratio] 15.4 % 11.6-14.6 [facility] Immature granulocytes/100 WBC (Bld) 0.300 % 0.0-0.9 [facility] Comment on above: IG% - Immature Granu locytes (promyelocytes, myelocytes and metamyelocytes) > 1% indicates that a LEFT SHIFT is Present. MCH (RBC) [Entitic mass] 29.3 pg 27.0-32.0 [facility] Nucleated RBC/100 WBC (Bld) [Ratio] 0 % 0-5 [facility] MCHC Auto (RBC) [Mass/Vol]Or dered By: Dr. Thomas on 06-28-2022 MCHC (RBC) [Mass/Vol] 30.4 g/dL 32-36 [facility] [place] No Panel InformationOrdered By: Dr. Thomas on 06-28-2022 Estimated GFR (MDRD) Amer 98 mL/min >60 [facility] Comment on above: GFR Calc Estimated GFR (MDRD) Non-Af Amer 81 mL/min >60 [facility] Comment on above: Non- GFR Calc Platelets bldOrdered By: Dr. Thomas on 06-28-2022 Platelets (Bld) [#/Vol] 283 10*3/uL 150-450 [facility] Serum or plasma albumin cesilia urement (mass/volume)Ordered By: Dr. Thomas on 06-28-2022 Albumin [Mass/Vol] 3.4 g/dL 3.2-5.0 [facility] Serum or plasma albumin/glob ulin mass ratioOrdered By: Dr. Thomas on 06-28-2022 Albumin/Globulin [Mass ratio] 0.9 {ratio} 0.9-2.4 [facility] Serum or plasma calcium cesilia urement (mass/volume)Ordered By: Dr. Thomas on 06-28-2022 Calcium [Mass/Vol] 8.8 mg/dL 8.5-10.1 [facility] Serum or plasma creatinine m easurement (mass/volume)Ordered By: Dr. Thomas on 06-28-2022 Creatinine [Mass/Vol] 0.74 mg/dL 0.55-1.02 [facility] [place] Comment on above: The validity of the calculated GFR & GFRAA in patients over 70 years has not been determined. Clinical correlation is essential. Serum or plasma urea nitroge n measurement (mass/volume)Ordered By: Dr. Thomas on 06-28-2022 Urea nitrogen [Mass/Vol] 12 mg/dL 7-18 [facility] Thin prep Papanicolaou smear with manual screeningOrdered By: Dr. Thomas on 06-28-2022 Thin prep Papanicolaou smear with manual screening 22 U/L 15-37 [facility] Thin prep Papanicolaou smear with manual screening 6 5-15 [facility] Absolute lymphocyte countOrd ered By: Dr. Thomas on 04-01-2022 Lymphocytes Auto (Unsp spec) [#/Vol] 1.20 10*3/uL 0.83-4.51 [facility] Basophil percentageOrdered B y: Dr. Thomas on 04-01-2022 Basophils/100 WBC (Bld) 1.0 % 0-1 [facility] Bilirubin [Mass/Vol] 0.20 mg/dL 0.20-1.00 [facility] Comment on above: For patients on eltr ombopag therapy, use of Dimension [employer] TBIL is not recommended. Chloride [Moles/Vol] 103 mmol/L 98-107 [facility] Eosinophils/100 WBC (Bld) 1.0 % 0-5 [facility] Glucose [Mass/Vol] 98 mg/dL 74-106 [facility] Neutrophils (Bld) [#/Vol] 2.2 10*3/uL 2.0-7.7 [facility] Neutrophils/100 WBC (Bld) 57.3 % 47-70 [facility] Potassium [Moles/Vol] 3.8 mmol/L 3.5-5.1 [facility] [place] [facility] Protein [Mass/Vol] 7.0 g/dL 6.4-8.2 [facility] Sodium [Moles/Vol] 142 mmol/L 136-145 [facility] WBC (Bld) [#/Vol] 3.8 10*3/uL 4.4-11.0 [facility] Blood erythrocytes count (nu mber/volume)Ordered By: Dr. Thomas on 04-01-2022 RBC (Bld) [#/Vol] 4.57 10*6/uL 4.2-5.4 [facility] Blood hemoglobin measurement (mass/volume)Ordered By: Dr. Thomas on 04-01-2022 Hemoglobin (Bld) [Mass/Vol] 13.4 g/dL 12.0-15.0 [facility] Blood lymphocytes/100 leukoc ytesOrdered By: Dr. Thomas on 04-01-2022 Lymphocytes/100 WBC (Bld) 31.3 % 19-41 [facility] Blood monocytes/100 leukocyt esOrdered By: Dr. Thomas on 04-01-2022 Monocytes/100 WBC (Bld) 9.1 % 0-10 [facility] Blood platelet mean volumeOr dered By: Dr. Thomas on 04-01-2022 Platelet mean volume (Bld) [Entitic vol] 10.7 fL 6.2-12.0 [facility] Determination of erythrocyte mean corpuscular volume (MCV)Ordered By: Dr. Thomas on 04-01-2022 MCV (RBC) [Entitic vol] 96.9 fL 81-99 [facility] Hematocrit Auto (Bld) [Volum e fraction]Ordered By: Dr. Thomas on 04-01-2022 Hematocrit (Bld) [Volume fraction] 44.3 % 37-47 [facility] Laboratory - Chemistry and C hemistry - challengeOrdered By: Dr. Thomas on 04-01-2022 ALP [Catalytic activity/Vol] 86 U/L 45-117 [facility] ALT [Catalytic activity/Vol] 19 U/L 13-56 [facility] CO2 [Moles/Vol] 32.0 mmol/L 21.0-32.0 [facility] Globulin (S) [Mass/Vol] 3.6 g/dL 2.2-4.2 [facility] Urea nitrogen/Creatinine [Mass ratio] 14.5 mg/mg 10-20 [facility] Laboratory - Hematology and Cell countsOrdered By: Dr. Thomas on 04-01-2022 Erythrocyte distribution width (RBC) [Entitic vol] 54.8 fL 35.1-43.9 [facility] Erythrocyte distribution width (RBC) [Ratio] 15.3 % 11.6-14.6 [facility] Immature granulocytes/100 WBC (Bld) 0.300 % 0.0-0.9 [facility] Comment on above: IG% - Immature Granu locytes (promyelocytes, myelocytes and metamyelocytes) > 1% indicates that a LEFT SHIFT is Present. MCH (RBC) [Entitic mass] 29.3 pg 27.0-32.0 [facility] Nucleated RBC/100 WBC (Bld) [Ratio] 0 % 0-5 [facility] MCHC Auto (RBC) [Mass/Vol]Or dered By: Dr. Thomas on 04-01-2022 MCHC (RBC) [Mass/Vol] 30.2 g/dL 32-36 [facility] [place] No Panel InformationOrdered By: Dr. Thomas on 04-01-2022 Estimated GFR (MDRD) Amer 95 mL/min >60 [facility] Comment on above: GFR Calc Estimated GFR (MDRD) Non-Af Amer 79 mL/min >60 [facility] Comment on above: Non- GFR Calc Platelets bldOrdered By: Dr. Thomas on 04-01-2022 Platelets (Bld) [#/Vol] 302 10*3/uL 150-450 [facility] Serum or plasma albumin cesilia urement (mass/volume)Ordered By: Dr. Thomas on 04-01-2022 Albumin [Mass/Vol] 3.4 g/dL 3.2-5.0 [facility] Serum or plasma albumin/glob ulin mass ratioOrdered By: Dr. Thomas on 04-01-2022 Albumin/Globulin [Mass ratio] 0.9 {ratio} 0.9-2.4 [facility] Serum or plasma calcium cesilia urement (mass/volume)Ordered By: Dr. Thomas on 04-01-2022 Calcium [Mass/Vol] 8.7 mg/dL 8.5-10.1 [facility] Serum or plasma creatinine m easurement (mass/volume)Ordered By: Dr. Thomas on 04-01-2022 Creatinine [Mass/Vol] 0.76 mg/dL 0.55-1.02 [facility] [place] Comment on above: The validity of the calculated GFR & GFRAA in patients over 70 years has not been determined. Clinical correlation is essential. Serum or plasma urea nitroge n measurement (mass/volume)Ordered By: Dr. Thomas on 04-01-2022 Urea nitrogen [Mass/Vol] 11 mg/dL 7-18 [facility] Thin prep Papanicolaou smear with manual screeningOrdered By: Dr. Thomas on 04-01-2022 Thin prep Papanicolaou smear with manual screening 18 U/L 15-37 [facility] Thin prep Papanicolaou smear with manual screening 7 5-15 [facility] Absolute lymphocyte counton 01-04-2022 Lymphocytes Auto (Unsp spec) [#/Vol] 1.24 10*3/uL 0.83-4.51 [facility] Work Phone: Basophil percentageon 2021 Basophils/100 WBC (Bld) 0.8 % 0-1 [facility] Work Phone: Bilirubin [Mass/Vol] 0.20 mg/dL 0.20-1.00 [facility] Work Phone: Comment on above: For patients on eltr ombopag therapy, use of Dimension [employer] TBIL is not recommended. Chloride [Moles/Vol] 103 mmol/L 98-107 [facility] Work Phone: Eosinophils/100 WBC (Bld) 1.1 % 0-5 [facility] Work Phone: Glucose [Mass/Vol] 94 mg/dL 74-106 [facility] Work Phone: Neutrophils (Bld) [#/Vol] 2.1 10*3/uL 2.0-7.7 [facility] Work Phone: Neutrophils/100 WBC (Bld) 56.6 % 47-70 [facility] Work Phone: Potassium [Moles/Vol] 3.6 mmol/L 3.5-5.1 [facility] [place] Work Phone: Protein [Mass/Vol] 6.9 g/dL 6.4-8.2 [facility] Work Phone: Sodium [Moles/Vol] 139 mmol/L 136-145 [facility] Work Phone: WBC (Bld) [#/Vol] 3.7 10*3/uL 4.4-11.0 [facility] Work Phone: Blood erythrocytes count (nu mber/volume)on 01-04-2022 RBC (Bld) [#/Vol] 4.31 10*6/uL 4.2-5.4 [facility] Work Phone: [phone] Blood hemoglobin measurement (mass/volume)on 01-04-2022 Hemoglobin (Bld) [Mass/Vol] 12.8 g/dL 12.0-15.0 [facility] Work Phone: Blood lymphocytes/100 leukoc yteson 01-04-2022 Lymphocytes/100 WBC (Bld) 33.2 % 19-41 [facility] Work Phone: Blood monocytes/100 leukocyt eson 01-04-2022 Monocytes/100 WBC (Bld) 8.0 % 0-10 [facility] Work Phone: Blood platelet mean volumeon 01-04-2022 Platelet mean volume (Bld) [Entitic vol] 10.5 fL 6.2-12.0 [facility] Work Phone: [phone] Determination of erythrocyte mean corpuscular volume (MCV)on 01-04-2022 MCV (RBC) [Entitic vol] 97.4 fL 81-99 [facility] Work Phone: Hematocrit Auto (Bld) [Volum e fraction]on 01-04-2022 Hematocrit (Bld) [Volume fraction] 42.0 % 37-47 [facility] Work Phone: [phone] Laboratory - Chemistry and C hemistry - challengeon 01-04-2022 ALP [Catalytic activity/Vol] 86 U/L 45-117 [facility] Work Phone: [phone] ALT [Catalytic activity/Vol] 20 U/L 13-56 [facility] Work Phone: [phone] CO2 [Moles/Vol] 33.0 mmol/L 21.0-32.0 [facility] Work Phone: [phone] Globulin (S) [Mass/Vol] 3.6 g/dL 2.2-4.2 [facility] Work Phone: [phone] Urea nitrogen/Creatinine [Mass ratio] 13.0 mg/mg 10-20 [facility] Work Phone: [phone] Laboratory - Hematology and Cell countson 01-04-2022 Erythrocyte distribution width (RBC) [Entitic vol] 57.0 fL 35.1-43.9 [facility] Work Phone: Erythrocyte distribution width (RBC) [Ratio] 15.9 % 11.6-14.6 [facility] Work Phone: Immature granulocytes/100 WBC (Bld) 0.300 % 0.0-0.9 [facility] Work Phone: Comment on above: IG% - Immature Granu locytes (promyelocytes, myelocytes and metamyelocytes) > 1% indicates that a LEFT SHIFT is Present. MCH (RBC) [Entitic mass] 29.7 pg 27.0-32.0 [facility] Work Phone: Nucleated RBC/100 WBC (Bld) [Ratio] 0 % 0-5 [facility] Work Phone: MCHC Auto (RBC) [Mass/Vol]on 01-04-2022 MCHC (RBC) [Mass/Vol] 30.5 g/dL 32-36 [facility] [place] Work Phone: No Panel Informationon 01-04 Estimated GFR (MDRD) Amer 94 mL/min >60 [facility] Work Phone: Comment on above: GFR Calc Estimated GFR (MDRD) Non-Af Amer 78 mL/min >60 [facility] Work Phone: Comment on above: Non- GFR Calc Platelets bldon 01-04-2022 Platelets (Bld) [#/Vol] 272 10*3/uL 150-450 [facility] Work Phone: [phone] Serum or plasma albumin cesilia urement (mass/volume)on 01-04-2022 Albumin [Mass/Vol] 3.3 g/dL 3.2-5.0 [facility] Work Phone: [phone] Serum or plasma albumin/glob ulin mass ratioon 01-04-2022 Albumin/Globulin [Mass ratio] 0.9 {ratio} 0.9-2.4 [facility] Work Phone: Serum or plasma calcium cesilia urement (mass/volume)on 01-04-2022 Calcium [Mass/Vol] 8.4 mg/dL 8.5-10.1 [facility] Work Phone: Serum or plasma creatinine m easurement (mass/volume)on 01-04-2022 Creatinine [Mass/Vol] 0.77 mg/dL 0.55-1.02 [facility] [place] Work Phone: Comment on above: The validity of the calculated GFR & GFRAA in patients over 70 years has not been determined. Clinical correlation is essential. Serum or plasma urea nitroge n measurement (mass/volume)on 01-04-2022 Urea nitrogen [Mass/Vol] 10 mg/dL 7-18 [facility] Work Phone: Thin prep Papanicolaou smear with manual screeningon 01-04-2022 Thin prep Papanicolaou smear with manual screening 20 U/L 15-37 [facility] Work Phone: Thin prep Papanicolaou smear with manual screening 3 5-15 [facility] Work Phone: No Panel Informationon 12-11 Stool Calprotectin 75 ug/g 0-120 [facility] Work Phone: Comment on above: Concentration Interp retation Follow-Up<16 - 50 ug/g Normal None>50 -120 ug/g Borderline Re-evaluate in 4-6 weeks >120 ug/g Abnormal Repeat as clinically indicatedPerformed at: - [facility] [address] [id number] Director: Snow Sun MD, Phone: [phone] Erythrocyte sedimentation ra gopi 12-10-2021 ESR (Bld) [Velocity] 11 mm/h 0-30 [facility] Work Phone: Serum or plasma C reactive p rotein measurement (mass/volume)on 12-10-2021 CRP [Mass/Vol] 9.08 mg/L 0.0-3.0 [facility] Work Phone: Comment on above: C-Reactive Protein ( CRP) provides useful information for thediagnosis, therapy and monitoring of inflammatory processesand associated diseases. For the evaluation of Relative Riskfor Cardiovascular Disease, a High Sensitivity CRP (HSCRP)should be ordered. Serum or plasma carcinoembry onic antigen measurement (mass/volume)on 12-10-2021 Carcinoembryonic Ag [Mass/Vol] 6.1 ng/mL 0.0-4.7 [facility] Work Phone: Comment on above: Nonsmokers <3.9 Smok ers <5.6[employer] Electrochemiluminescence Immunoassay(ECLIA)Values obtained with different assay methods or kitscannot be used interchangeably. Results cannot beinterpreted as absolute evidence of the presence orabsence of malignant disease.Performed at: [employer] [id number] Director: Cirilo Turner PhD, Phone: [phone] Absolute lymphocyte counton 10-15-2021 Lymphocytes Auto (Unsp spec) [#/Vol] 1.27 10*3/uL 0.83-4.51 [facility] Work Phone: Basophil percentageon 2021 Basophils/100 WBC (Bld) 1.1 % 0-1 [facility] Work Phone: Bilirubin [Mass/Vol] 0.30 mg/dL 0.20-1.00 [facility] Work Phone: Comment on above: For patients on eltr ombopag therapy, use of Dimension [employer] TBIL is not recommended. Chloride [Moles/Vol] 105 mmol/L 98-107 [facility] Work Phone: [phone] Eosinophils/100 WBC (Bld) 1.8 % 0-5 [facility] Work Phone: [phone] Glucose [Mass/Vol] 72 mg/dL 74-106 [facility] Work Phone: Neutrophils (Bld) [#/Vol] 2.0 10*3/uL 2.0-7.7 [facility] Work Phone: [phone] Neutrophils/100 WBC (Bld) 53.4 % 47-70 [facility] Work Phone: Potassium [Moles/Vol] 3.4 mmol/L 3.5-5.1 [facility] Work Phone: Protein [Mass/Vol] 7.1 g/dL 6.4-8.2 [facility] Work Phone: Sodium [Moles/Vol] 141 mmol/L 136-145 [facility] Work Phone: WBC (Bld) [#/Vol] 3.8 10*3/uL 4.4-11.0 [facility] Work Phone: Blood erythrocytes count (nu mber/volume)on 10-15-2021 RBC (Bld) [#/Vol] 4.49 10*6/uL 4.2-5.4 [facility] Work Phone: [phone] Blood hemoglobin measurement (mass/volume)on 10-15-2021 Hemoglobin (Bld) [Mass/Vol] 12.9 g/dL 12.0-15.0 [facility] Work Phone: Blood lymphocytes/100 leukoc yteson 10-15-2021 Lymphocytes/100 WBC (Bld) 33.4 % 19-41 [facility] Work Phone: Blood monocytes/100 leukocyt eson 10-15-2021 Monocytes/100 WBC (Bld) 10.0 % 0-10 [facility] Work Phone: Blood platelet mean volumeon 10-15-2021 Platelet mean volume (Bld) [Entitic vol] 10.3 fL 6.2-12.0 [facility] Work Phone: Determination of erythrocyte mean corpuscular volume (MCV)on 10-15-2021 MCV (RBC) [Entitic vol] 96.2 fL 81-99 [facility] Work Phone: Hematocrit Auto (Bld) [Volum e fraction]on 10-15-2021 Hematocrit (Bld) [Volume fraction] 43.2 % 37-47 [facility] Work Phone: Laboratory - Chemistry and C hemistry - challengeon 10-15-2021 ALP [Catalytic activity/Vol] 88 U/L 45-117 [facility] Work Phone: ALT [Catalytic activity/Vol] 18 U/L 13-56 [facility] Work Phone: CO2 [Moles/Vol] 29.0 mmol/L 21.0-32.0 [facility] Work Phone: Globulin (S) [Mass/Vol] 3.8 g/dL 2.2-4.2 [facility] Work Phone: Urea nitrogen/Creatinine [Mass ratio] 12.4 mg/mg 10-20 [facility] Work Phone: Laboratory - Hematology and Cell countson 10-15-2021 Erythrocyte distribution width (RBC) [Entitic vol] 55.8 fL 35.1-43.9 [facility] Work Phone: Erythrocyte distribution width (RBC) [Ratio] 15.7 % 11.6-14.6 [facility] Work Phone: Immature granulocytes/100 WBC (Bld) 0.300 % 0.0-0.9 [facility] Work Phone: Comment on above: IG% - Immature Granu locytes (promyelocytes, myelocytes and metamyelocytes) > 1% indicates that a LEFT SHIFT is Present. MCH (RBC) [Entitic mass] 28.7 pg 27.0-32.0 [facility] Work Phone: Nucleated RBC/100 WBC (Bld) [Ratio] 0 % 0-5 [facility] Work Phone: MCHC Auto (RBC) [Mass/Vol]on 10-15-2021 MCHC (RBC) [Mass/Vol] 29.9 g/dL 32-36 [facility] [place] [facility] Work Phone: No Panel Informationon 10-15 Estimated GFR (MDRD) Amer 89 mL/min >60 [facility] Work Phone: Comment on above: GFR Calc Estimated GFR (MDRD) Non-Af Amer 73 mL/min >60 [facility] Work Phone: Comment on above: Non- GFR Calc Platelets bldon 10-15-2021 Platelets (Bld) [#/Vol] 321 10*3/uL 150-450 [facility] Work Phone: Serum or plasma albumin cesilia urement (mass/volume)on 10-15-2021 Albumin [Mass/Vol] 3.3 g/dL 3.2-5.0 [facility] Work Phone: Serum or plasma albumin/glob ulin mass ratioon 10-15-2021 Albumin/Globulin [Mass ratio] 0.9 {ratio} 0.9-2.4 [facility] Work Phone: Serum or plasma calcium cesilia urement (mass/volume)on 10-15-2021 Calcium [Mass/Vol] 8.8 mg/dL 8.5-10.1 [facility] Work Phone: Serum or plasma creatinine m easurement (mass/volume)on 10-15-2021 Creatinine [Mass/Vol] 0.81 mg/dL 0.55-1.02 [facility] [place] [facility] Work Phone: Comment on above: The validity of the calculated GFR & GFRAA in patients over 70 years has not been determined. Clinical correlation is essential. Serum or plasma urea nitroge n measurement (mass/volume)on 10-15-2021 Urea nitrogen [Mass/Vol] 10 mg/dL 7-18 [facility] Work Phone: Thin prep Papanicolaou smear with manual screeningon 10-15-2021 Thin prep Papanicolaou smear with manual screening 18 U/L 15-37 [facility] Work Phone: Thin prep Papanicolaou smear with manual screening 7 5-15 [facility] Work Phone: Erythrocyte sedimentation ra gopi 09-19-2021 ESR (Bld) [Velocity] 15 mm/h 0-30 [facility] Work Phone: Serum or plasma C reactive p rotein measurement (mass/volume)on 09-19-2021 CRP [Mass/Vol] 11.70 mg/L 0.0-3.0 [facility] Work Phone: Comment on above: C-Reactive Protein ( CRP) provides useful information for thediagnosis, therapy and monitoring of inflammatory processesand associated diseases. For the evaluation of Relative Riskfor Cardiovascular Disease, a High Sensitivity CRP (HSCRP)should be ordered. No Panel Informationon 08-13 CA 125 Antigen 17.4 U/mL 0.0-38.1 [facility] Work Phone: Comment on above: [employer] El ectrochemiluminescence Immunoassay(ECLIA)Values obtained with different assay methods or kits cannotbe used interchangeably. Results cannot be interpreted asabsolute evidence of the presence or absence of malignantdisease.Performed at: [email or web address] [id number] Director: Cirilo Turner PhD, Phone: [phone] Serum or plasma carcinoembry onic antigen measurement (mass/volume)on 08-13-2021 Carcinoembryonic Ag [Mass/Vol] 7.1 ng/mL 0.0-4.7 [facility] Work Phone: Comment on above: Nonsmokers <3.9 Smok ers <5.6[facility] [employer] Electrochemiluminescence Immunoassay(ECLIA)Values obtained with different assay methods or kitscannot be used interchangeably. Results cannot beinterpreted as absolute evidence of the presence orabsence of malignant disease. Thin prep Papanicolaou smear with manual screeningon 08-13-2021 Thin prep Papanicolaou smear with manual screening 192 U/L 84-246 [facility] Work Phone: Basophil percentageon 2021 Creatinine [Mass/Vol] 0.8 mg/dL 0.55-1.02 [facility] [place] [facility] Work Phone: No Panel Informationon 08-09 Bedside Estimated GFR (eGFR) > 60.0000 mL/min >60 [facility] Work Phone: Absolute lymphocyte counton 07-26-2021 Lymphocytes Auto (Unsp spec) [#/Vol] 0.94 10*3/uL 0.83-4.51 [facility] Work Phone: Basophil percentageon 2021 Basophils/100 WBC (Bld) 1.2 % 0-1 [facility] Work Phone: Eosinophils/100 WBC (Bld) 1.2 % 0-5 [facility] Work Phone: Neutrophils (Bld) [#/Vol] 1.9 10*3/uL 2.0-7.7 [facility] Work Phone: Neutrophils/100 WBC (Bld) 57.6 % 47-70 [facility] Work Phone: WBC (Bld) [#/Vol] 3.4 10*3/uL 4.4-11.0 [facility] Work Phone: Blood erythrocytes count (nu mber/volume)on 07-26-2021 RBC (Bld) [#/Vol] 4.27 10*6/uL 4.2-5.4 [facility] Work Phone: Blood hemoglobin measurement (mass/volume)on 07-26-2021 Hemoglobin (Bld) [Mass/Vol] 12.6 g/dL 12.0-15.0 [facility] Work Phone: Blood lymphocytes/100 leukoc yteson 07-26-2021 Lymphocytes/100 WBC (Bld) 28.1 % 19-41 [facility] Work Phone: Blood monocytes/100 leukocyt eson 07-26-2021 Monocytes/100 WBC (Bld) 11.6 % 0-10 [facility] Work Phone: Blood platelet mean volumeon 07-26-2021 Platelet mean volume (Bld) [Entitic vol] 10.8 fL 6.2-12.0 [facility] Work Phone: [phone] Determination of erythrocyte mean corpuscular volume (MCV)on 03-17-2022 MCV (RBC) [Entitic vol] 97.4 fL 81-99 [facility] Work Phone: [phone] Hematocrit Auto (Bld) [Volum e fraction]on 07-26-2021 Hematocrit (Bld) [Volume fraction] 41.6 % 37-47 [facility] Work Phone: [phone] Laboratory - Hematology and Cell countson 07-26-2021 Erythrocyte distribution width (RBC) [Entitic vol] 51.9 fL 35.1-43.9 [facility] Work Phone: [phone] Erythrocyte distribution width (RBC) [Ratio] 14.5 % 11.6-14.6 [facility] Work Phone: [phone] Immature granulocytes/100 WBC (Bld) 0.300 % 0.0-0.9 [facility] Work Phone: Comment on above: IG% - Immature Granu locytes (promyelocytes, myelocytes and metamyelocytes) > 1% indicates that a LEFT SHIFT is Present. MCH (RBC) [Entitic mass] 29.5 pg 27.0-32.0 [facility] Work Phone: [phone] Nucleated RBC/100 WBC (Bld) [Ratio] 0 % 0-5 [facility] Work Phone: MCHC Auto (RBC) [Mass/Vol]on 07-26-2021 MCHC (RBC) [Mass/Vol] 30.3 g/dL 32-36 [facility] [place] [facility] Work Phone: [phone] Platelets bldon 07-26-2021 Platelets (Bld) [#/Vol] 293 10*3/uL 150-450 [facility] Work Phone: Basophil percentageon 2021 Cholesterol [Mass/Vol] 193 mg/dL <200 [facility] Work Phone: Comment on above: <200 mg/dL Desirable 200-240 mg/dL Borderline >240 mg/dL High Risk Triglyceride [Mass/Vol] 68 mg/dL [facility] Work Phone: Comment on above: The drugs N-Acetylcy steine and Metamizole may falsely depress this assay.Serum Triglycerides Reference Interval Normal <150 mg/dL Borderline high 150 - 199 mg/dL High 200 - 499 mg/dL Very High > or = 500 mg/dL No Panel Informationon 07-16 Vitamin D 25-Hydroxy 43.1 ng/mL [facility] Work Phone: Comment on above: Vitamin D 25(OH) Sta tus Range Deficiency <20 ng/mL (50nmol/L) Insufficiency 20 - 30 ng/mL (50 - 75 nmol/L) Sufficiency 30 - 100 ng/mL (75 - 250 nmol/L) Toxicity >100 ng/mL (>250 nmol/L) Serum or plasma cholesterol in HDL measurement (mass/volume)on 07-16-2021 Cholesterol in HDL [Mass/Vol] 72 mg/dL [facility] Work Phone: Comment on above: The drugs N-Acetylcy steine and Metamizole may falsely depress this assay. Reference Range HDL <40 mg/dL Low HDL Cholesterol HDL >or= 60 mg/dL High HDL Cholesterol Serum or plasma cholesterol in VLDL measurement (mass/volume)on 07-16-2021 Cholesterol in VLDL [Mass/Vol] 14 mg/dL 5-40 [facility] Work Phone: Serum or plasma low density lipoprotein (LDL) cholesterol measurement (mass/volume)on 07-16-2021 Cholesterol in LDL [Mass/Vol] 107 mg/dL 0-130 [facility] Work Phone: Absolute lymphocyte counton 07-02-2021 Lymphocytes Auto (Unsp spec) [#/Vol] 0.92 10*3/uL 0.83-4.51 [facility] Work Phone: Basophil percentageon 2021 Basophils/100 WBC (Bld) 1.8 % 0-1 [facility] Work Phone: Bilirubin [Mass/Vol] 0.30 mg/dL 0.20-1.00 [facility] Work Phone: Comment on above: For patients on eltr ombopag therapy, use of Dimension [employer] TBIL is not recommended. Chloride [Moles/Vol] 102 mmol/L 98-107 [facility] Work Phone: Eosinophils/100 WBC (Bld) 0.7 % 0-5 [facility] Work Phone: Glucose [Mass/Vol] 140 mg/dL 74-106 [facility] Work Phone: Comment on above: Fasting Glucose resu lt greater than or equal to 126 mg/dL suggests DIABETES MELLITUS per A.D.A. criteria. Neutrophils (Bld) [#/Vol] 1.6 10*3/uL 2.0-7.7 [facility] Work Phone: Neutrophils/100 WBC (Bld) 55.7 % 47-70 [facility] Work Phone: Potassium [Moles/Vol] 3.5 mmol/L 3.5-5.1 [facility] Work Phone: Protein [Mass/Vol] 7.5 g/dL 6.4-8.2 [facility] Work Phone: Sodium [Moles/Vol] 139 mmol/L 136-145 [facility] Work Phone: WBC (Bld) [#/Vol] 2.8 10*3/uL 4.4-11.0 [facility] Work Phone: Blood erythrocytes count (nu mber/volume)on 07-02-2021 RBC (Bld) [#/Vol] 4.56 10*6/uL 4.2-5.4 [facility] Work Phone: Blood hemoglobin measurement (mass/volume)on 07-02-2021 Hemoglobin (Bld) [Mass/Vol] 13.9 g/dL 12.0-15.0 [facility] Work Phone: Blood lymphocytes/100 leukoc yteson 07-02-2021 Lymphocytes/100 WBC (Bld) 32.9 % 19-41 [facility] Work Phone: Blood monocytes/100 leukocyt eson 07-02-2021 Monocytes/100 WBC (Bld) 8.9 % 0-10 [facility] Work Phone: Blood platelet mean volumeon 07-02-2021 Platelet mean volume (Bld) [Entitic vol] 10.9 fL 6.2-12.0 [facility] Work Phone: Determination of erythrocyte mean corpuscular volume (MCV)on 07-02-2021 MCV (RBC) [Entitic vol] 97.6 fL 81-99 [facility] Work Phone: [phone] Hematocrit Auto (Bld) [Volum e fraction]on 07-02-2021 Hematocrit (Bld) [Volume fraction] 44.5 % 37-47 [facility] Work Phone: [phone] Laboratory - Chemistry and C hemistry - challengeon 07-02-2021 ALP [Catalytic activity/Vol] 90 U/L 45-117 [facility] Work Phone: [phone] ALT [Catalytic activity/Vol] 24 U/L 13-56 [facility] Work Phone: [phone] CO2 [Moles/Vol] 31.0 mmol/L 21.0-32.0 [facility] Work Phone: [phone] Globulin (S) [Mass/Vol] 4.1 g/dL 2.2-4.2 [facility] Work Phone: [phone] Urea nitrogen/Creatinine [Mass ratio] 16.7 mg/mg 10-20 [facility] Work Phone: [phone] Laboratory - Hematology and Cell countson 07-02-2021 Erythrocyte distribution width (RBC) [Entitic vol] 50.4 fL 35.1-43.9 [facility] Work Phone: [phone] Erythrocyte distribution width (RBC) [Ratio] 14.0 % 11.6-14.6 [facility] Work Phone: [phone] Immature granulocytes/100 WBC (Bld) 0.000 % 0.0-0.9 [facility] Work Phone: [phone] Comment on above: IG% - Immature Granu locytes (promyelocytes, myelocytes and metamyelocytes) > 1% indicates that a LEFT SHIFT is Present. MCH (RBC) [Entitic mass] 30.5 pg 27.0-32.0 [facility] Work Phone: Nucleated RBC/100 WBC (Bld) [Ratio] 0 % 0-5 [facility] Work Phone: MCHC Auto (RBC) [Mass/Vol]on 07-02-2021 MCHC (RBC) [Mass/Vol] 31.2 g/dL 32-36 [facility] Work Phone: No Panel Informationon 07-02 Estimated GFR (MDRD) Amer 93 mL/min >60 [facility] Work Phone: Comment on above: GFR Calc Estimated GFR (MDRD) Non-Af Amer 77 mL/min >60 [facility] Work Phone: Comment on above: Non- GFR Calc Platelets bldon 07-02-2021 Platelets (Bld) [#/Vol] 304 10*3/uL 150-450 [facility] Work Phone: Serum or plasma albumin cesilia urement (mass/volume)on 07-02-2021 Albumin [Mass/Vol] 3.4 g/dL 3.2-5.0 [facility] Work Phone: Serum or plasma albumin/glob ulin mass ratioon 07-02-2021 Albumin/Globulin [Mass ratio] 0.8 {ratio} 0.9-2.4 [facility] Work Phone: Serum or plasma calcium cesilia urement (mass/volume)on 07-02-2021 Calcium [Mass/Vol] 9.1 mg/dL 8.5-10.1 [facility] Work Phone: Serum or plasma creatinine m easurement (mass/volume)on 07-02-2021 Creatinine [Mass/Vol] 0.78 mg/dL 0.55-1.02 [facility] Work Phone: Comment on above: The validity of the calculated GFR & GFRAA in patients over 70 years has not been determined. Clinical correlation is essential. Serum or plasma urea nitroge n measurement (mass/volume)on 07-02-2021 Urea nitrogen [Mass/Vol] 13 mg/dL 7-18 [facility] Work Phone: Thin prep Papanicolaou smear with manual screeningon 07-02-2021 Thin prep Papanicolaou smear with manual screening 22 U/L 15-37 [facility] Work Phone: Thin prep Papanicolaou smear with manual screening 6 5-15 [facility] Work Phone: No Panel Informationon 06-11 Estimated GFR (MDRD) Amer 99 mL/min >60 [facility] Work Phone: Comment on above: GFR Calc Estimated GFR (MDRD) Non-Af Amer 82 mL/min >60 [facility] Work Phone: Comment on above: Non- GFR Calc Serum or plasma creatinine m easurement (mass/volume)on 06-11-2021 Creatinine [Mass/Vol] 0.74 mg/dL 0.55-1.02 [facility] Work Phone: Comment on above: The validity of the calculated GFR & GFRAA in patients over 70 years has not been determined. Clinical correlation is essential. 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 ethan ferguson at three year interval. COMPARISON:October 21, 2014 ORDERING CLINICIAN:RAUDEL BAMBAKIDIS TECHNIQUE:Low dose axial CT images of the [...] No evidence for aneurysm.Electronically signed by: DAVIDE ARZOLA, DO Normal [facility] Vital Signs Date Time Vital Sign Value Performing Clinician Jesus lee 02-25-2025 07:59-0400 Body temperature 97.6 [degF] Shannan Pressley MD Work Phone: [facility] 02-25-2025 07:59-0400 Diastolic blood pressure 78 mm[Hg] Shannan Pressley MD Work Phone: [facility] 02-25-2025 07:59-0400 Heart rate 74 /min Shannan Pressley MD Work Phone: [facility] 02-25-2025 07:59-0400 Respiratory rate 16 /min Shannan Pressley MD Work Phone: [facility] 02-25-2025 07:59-0400 SaO2% (BldA) [Mass fraction] 95 % Shannan Pressley MD Work Phone: [facility] 02-25-2025 07:59-0400 Systolic blood pressure 152 mm[Hg] Shannan Pressley MD Work Phone: 0(142)763-621573 [place] [address] 02-24-2025 14:30-0400 Body height 154.94 cm Shannan Pressley MD Work Phone: [facility] 02-24-2025 14:30-0400 Body mass index (BMI) [Ratio] 37.8 kg/m2 Shannan Pressley MD Work Phone: 8(313)045-211573 [place] [address] 02-24-2025 14:30-0400 Body weight 90.71 kg Shannan Pressley MD Work Phone: 9(589)861-094373 [place] [address] 02-24-2025 14:30-0400 Inhaled oxygen flow rate 2 L/min Shannan Pressley MD Work Phone: [facility] 02-01-2025 13:37-0400 Body height 154.94 cm Shannan Pressley MD Work Phone: 0(122)820-648873 [place] [address] 02-01-2025 13:37-0400 Body mass index (BMI) [Ratio] 36.8 kg/m2 Shannan Pressley MD Work Phone: 8(115)601-719873 [place] [address] 02-01-2025 13:37-0400 Body weight 88.45 kg Shannan Pressley MD Work Phone: [facility] 01-28-2025 22:16-0400 Body temperature 97.9 [degF] Shannan Pressley MD Work Phone: [facility] 01-28-2025 22:16-0400 Diastolic blood pressure 95 mm[Hg] Shannan Pressley MD Work Phone: [facility] 01-28-2025 22:16-0400 Heart rate 85 /min Shannan Pressley MD Work Phone: [facility] 01-28-2025 22:16-0400 Respiratory rate 16 /min Shannan Pressley MD Work Phone: [facility] 01-28-2025 22:16-0400 SaO2% (BldA) [Mass fraction] 99 % Shannan Pressley MD Work Phone: [facility] 01-28-2025 22:16-0400 Systolic blood pressure 175 mm[Hg] Shannan Pressley MD Work Phone: [facility] 01-28-2025 17:22-0400 Body mass index (BMI) [Ratio] 40.6 kg/m2 Shannan Pressley MD Work Phone: [facility] 01-28-2025 17:22-0400 Body weight 94.34 kg Shannan Pressley MD Work Phone: 8(558)718-710573 [place] [address] 01-13-2025 09:27-0400 Body height 152.[address] Kristina Richard MD Work Phone: 5(810)367-637273 [place] [address] 01-13-2025 09:27-0400 Body mass index (BMI) [Ratio] 38.7 kg/m2 Dr. Kristina Richard MD Work Phone: [facility] 01-13-2025 09:27-0400 Body temperature 96.8 [degF] Dr. Kristina Richard MD Work Phone: 1(925)850-595773 [place] [address] 01-13-2025 09:27-0400 Body weight 89.[address] Kristina Richard MD Work Phone: [facility] 01-13-2025 09:27-0400 Diastolic blood pressure 95 mm[Hg] Dr. Kristina Richard MD Work Phone: [facility] 01-13-2025 09:27-0400 Heart rate 101 /min Dr. Kristina Richard MD Work Phone: [facility] 01-13-2025 09:27-0400 Respiratory rate 18 /min Dr. Kristina Richard MD Work Phone: [facility] 01-13-2025 09:27-0400 SaO2% (BldA) [Mass fraction] 95 % Dr. Kristina Richard MD Work Phone: [facility] 01-13-2025 09:27-0400 Systolic blood pressure 154 mm[Hg] Dr. Kristina Richard MD Work Phone: [facility] 12-27-2024 10:23-0400 Body height 152.[address] Kristina Richard MD Work Phone: 1(355)239-647873 [place] [address] 12-27-2024 10:23-0400 Body mass index (BMI) [Ratio] 38.7 kg/m2 Dr. Kristina Richard MD Work Phone: 3(498)164-486376 [address] 12-27-2024 10:23-0400 Body temperature 98 [degF] Dr. Kristina Richard MD Work Phone: 3(362)836-841276 [address] 12-27-2024 10:23-0400 Body weight 89.[address] Kristina Richard MD Work Phone: 8(996)900-224573 [place] [address] 12-27-2024 10:23-0400 Diastolic blood pressure 90 mm[Hg] Dr. Kristina Richard MD Work Phone: 6(842)317-758476 [address] 12-27-2024 10:23-0400 Heart rate 86 /min Dr. Kristina Richard MD Work Phone: 8(246)532-960573 [place] [address] 12-27-2024 10:23-0400 Respiratory rate 16 /min Dr. Kristina Richard MD Work Phone: [facility] 12-27-2024 10:23-0400 SaO2% (BldA) [Mass fraction] 96 % Dr. Kristina Richard MD Work Phone: [facility] 12-27-2024 10:23-0400 Systolic blood pressure 153 mm[Hg] Dr. Kristina Richard MD Work Phone: [facility] 12-07-2024 13:42-0400 Diastolic blood pressure 83 mm[Hg] Dr. Kristina Richard MD Work Phone: [facility] 12-07-2024 13:42-0400 Heart rate 88 /min Dr. Kristina Richard MD Work Phone: 7(723)587-093346 [place] [address] 12-07-2024 13:42-0400 Respiratory rate 17 /min Dr. Kristina Richard MD Work Phone: 5(567)042-263946 [place] [address] 12-07-2024 13:42-0400 SaO2% (BldA) [Mass fraction] 94 % Dr. Kristina Richard MD Work Phone: 5(546)851-446846 [place] [address] 12-07-2024 13:42-0400 Systolic blood pressure 140 mm[Hg] Dr. Kristina Richard MD Work Phone: 5(603)740-797246 [place] [address] 11-08-2024 08:26-0400 Body height 152.[address] Kristina Richard MD Work Phone: 5(679)383-085846 [place] [address] 11-08-2024 08:26-0400 Diastolic blood pressure 68 mm[Hg] Dr. Kristina Richard MD Work Phone: 3(332)050-014246 [place] [address] 11-08-2024 08:26-0400 Respiratory rate 16 /min Dr. Kristina Richard MD Work Phone: 0(019)897-233446 [place] [address] 11-08-2024 08:26-0400 Systolic blood pressure 142 mm[Hg] Dr. Kristina Richard MD Work Phone: 8(800)409-553646 [place] [address] 09-30-2024 13:42-0400 Body height 152.[address] Kristina Richard MD Work Phone: 7(645)541-533046 [place] [address] 09-30-2024 13:42-0400 Body mass index (BMI) [Ratio] 38 kg/m2 Dr. Kristina Richard MD Work Phone: 8(931)254-755646 [place] [address] 09-30-2024 13:42-0400 Body weight 88.[address] Kristina Richard MD Work Phone: 3(075)094-057646 [place] [address] 09-30-2024 13:42-0400 Diastolic blood pressure 118 mm[Hg] Dr. Kristina Richard MD Work Phone: 3(366)778-748073 [place] [address] 09-30-2024 13:42-0400 Respiratory rate 18 /min Dr. Kristina Richard MD Work Phone: 8(967)037-903546 [place] [address] 09-30-2024 13:42-0400 Systolic blood pressure 169 mm[Hg] Dr. Kristina Richard MD Work Phone: 6(701)094-970846 [place] [address] 07-01-2024 09:06-0500 Body height 153.[address] Kristina Richard MD Work Phone: 3(304)013-758046 [place] [address] 07-01-2024 09:06-0500 Body mass index (BMI) [Ratio] 37.3 kg/m2 Dr. Kristina Richard MD Work Phone: 2(494)977-159846 [place] [address] 07-01-2024 09:06-0500 Body temperature 98 [degF] Dr. Kristina Richard MD Work Phone: 8(842)343-735446 [place] [address] 07-01-2024 09:06-0500 Body weight 87.[address] Kristina Richard MD Work Phone: 7(090)082-992546 [place] [address] 07-01-2024 09:06-0500 Diastolic blood pressure 86 mm[Hg] Dr. Kristina Richard MD Work Phone: 2(863)856-483746 [place] [address] 07-01-2024 09:06-0500 Heart rate 83 /min Dr. Kristina Richard MD Work Phone: 6(232)114-689946 [place] [address] 07-01-2024 09:06-0500 Respiratory rate 16 /min Dr. Kristina Richard MD Work Phone: 8(347)533-495946 [place] [address] 07-01-2024 09:06-0500 SaO2% (BldA) [Mass fraction] 99 % Dr. Kristina Richard MD Work Phone: 9(872)962-311046 [place] [address] 07-01-2024 09:06-0500 Systolic blood pressure 132 mm[Hg] Dr. Kristina Richard MD Work Phone: 3(472)613-292546 [place] [address] 09-04-2023 02:03-0400 Body temperature 97.2 [degF] [facility] 09-04-2023 02:03-0400 Diastolic blood pressure 91 mm[Hg] [facility] 09-04-2023 02:03-0400 Heart rate 88 /min [facility] 09-04-2023 02:03-0400 Respiratory rate 16 /min [facility] 09-04-2023 02:03-0400 SaO2% (BldA) [Mass fraction] 94 % [facility] 09-04-2023 02:03-0400 Systolic blood pressure 169 mm[Hg] [facility] 09-03-2023 23:05-0400 Inhaled oxygen flow rate 4 L/min [facility] 09-03-2023 22:04-0400 Body height 154.94 cm [facility] 09-03-2023 22:04-0400 Body mass index (BMI) [Ratio] 40.4 kg/m2 [facility] 09-03-2023 22:04-0400 Body weight 97.1 kg [facility] 12-10-2021 13:25-0400 Body height 154.[address] Kristina Richard Work Phone: [facility] Work Phone: 12-10-2021 13:25-0400 Body mass index (BMI) [Ratio] 36.9 kg/m2 Dr. Kristina Richard Work Phone: [facility] Work Phone: 12-10-2021 13:25-0400 Body weight 88.[address] Kristina Richard Work Phone: [facility] Work Phone: 12-10-2021 13:25-0400 Diastolic blood pressure 86 mm[Hg] Dr. Kristina Richard Work Phone: [facility] Work Phone: 12-10-2021 13:25-0400 Heart rate 85 /min Dr. Kristina Richard Work Phone: [facility] Work Phone: 12-10-2021 13:25-0400 SaO2% (BldA) [Mass fraction] 97 % Dr. Kristina Richard Work Phone: [facility] Work Phone: 12-10-2021 13:25-0400 Systolic blood pressure 130 mm[Hg] Dr. Kristina Richard Work Phone: [facility] Work Phone: 11-19-2021 19:51-0400 Diastolic blood pressure 79 mm[Hg] Dr. Kristina Richard Work Phone: [facility] Work Phone: 11-19-2021 19:51-0400 Heart rate 79 /min Dr. Kristina Richard Work Phone: [facility] Work Phone: 11-19-2021 19:51-0400 Respiratory rate 18 /min Dr. Kristina Richard Work Phone: [facility] Work Phone: 11-19-2021 19:51-0400 SaO2% (BldA) [Mass fraction] 99 % Dr. Kristina Richard Work Phone: [facility] Work Phone: 11-19-2021 19:51-0400 Systolic blood pressure 170 mm[Hg] Dr. Kristina Richard Work Phone: [facility] Work Phone: 11-19-2021 16:22-0400 Body height 154.[address] Kristina Richard Work Phone: [facility] Work Phone: 11-19-2021 16:22-0400 Body mass index (BMI) [Ratio] 35.9 kg/m2 Dr. Kristina Richard Work Phone: [facility] Work Phone: 11-19-2021 16:22-0400 Body temperature 98.3 [degF] Dr. Kristina Richard Work Phone: [facility] Work Phone: 11-19-2021 16:22-0400 Body weight 86.[address] Kristina Richard Work Phone: [facility] Work Phone: 09-19-2021 13:57-0400 Body mass index (BMI) [Ratio] 36.2 kg/m2 Dr. Kristina Richard Work Phone: [facility] Work Phone: 09-19-2021 13:57-0400 Body weight 87.[address] Kristina Richard Work Phone: [facility] Work Phone: 09-19-2021 13:57-0400 Diastolic blood pressure 87 mm[Hg] Dr. Kristina Richard Work Phone: [facility] Work Phone: 09-19-2021 13:57-0400 Heart rate 95 /min Dr. Kristina Richard Work Phone: [facility] Work Phone: 09-19-2021 13:57-0400 SaO2% (BldA) [Mass fraction] 97 % Dr. Kristina Richard Work Phone: [facility] Work Phone: 09-19-2021 13:57-0400 Systolic blood pressure 123 mm[Hg] Dr. Kristina Richard Work Phone: [facility] Work Phone: 09-19-2021 13:57-0400 Body height 154.[address] Kristina Richard Work Phone: [facility] Work Phone: 09-19-2021 13:57-0400 Body mass index (BMI) [Ratio] 36.2 kg/m2 Dr. Kristina Richard Work Phone: [facility] Work Phone: 09-19-2021 13:57-0400 Body weight 87.[address] Kristina Richard Work Phone: [facility] Work Phone: 09-19-2021 13:57-0400 Diastolic blood pressure 87 mm[Hg] Dr. Kristina Richard Work Phone: [facility] Work Phone: 09-19-2021 13:57-0400 Heart rate 95 /min Dr. Kristina Richard Work Phone: [facility] Work Phone: 09-19-2021 13:57-0400 SaO2% (BldA) [Mass fraction] 97 % Dr. Kristina Richard Work Phone: [facility] Work Phone: 09-19-2021 13:57-0400 Systolic blood pressure 123 mm[Hg] Dr. Kristina Richard Work Phone: [facility] Work Phone: 08-21-2021 07:30-0400 Body temperature 97.4 [degF] Dr. Kristina Richard Work Phone: [facility] Work Phone: 08-21-2021 07:30-0400 Diastolic blood pressure 96 mm[Hg] Dr. Kristina Richard Work Phone: [facility] Work Phone: 08-21-2021 07:30-0400 Heart rate 81 /min Dr. Kristina Richard Work Phone: [facility] Work Phone: 08-21-2021 07:30-0400 Respiratory rate 18 /min Dr. Kristina Richard Work Phone: [facility] Work Phone: 08-21-2021 07:30-0400 SaO2% (BldA) [Mass fraction] 99 % Dr. Kristina Richard Work Phone: [facility] Work Phone: 08-21-2021 07:30-0400 Systolic blood pressure 136 mm[Hg] Dr. Kristina Richard Work Phone: [facility] Work Phone: 08-21-2021 06:01-0400 Body height 154.[address] Kristina Richard Work Phone: [facility] Work Phone: 08-21-2021 06:01-0400 Body mass index (BMI) [Ratio] 35.4 kg/m2 Dr. Kristina Richard Work Phone: [facility] Work Phone: 08-21-2021 06:01-0400 Body weight [address] Kristina Richard Work Phone: [facility] Work Phone: Encounters Encounter Date Encounter Type Care Provider Facility Start: 03-08-2025 End: 03-08-2025 ambulatory Sorin Jackson Facility:[facility] Start: 03-07-2025 End: 03-07-2025 ambulatory Davie Mckeon Facility:[facility] Start: 02-25-2025 Encounter for other preprocedural examination Davie Mckeon [facility] Start: 02-25-2025 Non-patient / Non-visit Dr. Davie Mckeon MD -[facility] Start: 02-24-2025 End: 02-25-2025 ambulatory Davie Mckeon Facility:[facility] Start: 02-24-2025 End: 02-25-2025 Evaluation and management of inpatient Dr. Davie Mckeon MD [facility] Work Phone: Start: 02-24-2025 End: 02-25-2025 observation encounter Shannan Pressley MD Work Phone: -[facility] Start: 02-24-2025 ambulatory Davie Mckeon Facility: [facility] Start: 02-24-2025 Non-patient / Non-visit Dr. Davie Mckeon MD -[facility] Start: 02-08-2025 End: 02-08-[address] Sorin Jackson MD -[facility] Work Phone: Start: 02-08-2025 End: 02-08-2025 ambulatory Shannan Pressley MD Work Phone: -[facility] Start: 02-01-2025 End: 02-01-[address] Sorin Jackson MD -[facility] Work Phone: Start: 02-01-2025 End: 02-01-2025 ambulatory Shannan Pressley MD Work Phone: -[facility] Start: 01-31-2025 End: 01-31-[address] Sanjana Thomas MD -[facility] Work Phone: Start: 01-31-2025 End: 01-31-2025 ambulatory Sanjana Thomas Facility:[facility] Start: 01-28-2025 End: 01-28-2025 Emergency department patient visit Dr. Elma Davey DO -Emergency Department Work Phone: Start: 01-13-2025 End: 01-13-[address] Davie Mckeon MD -[facility] Work Phone: Start: 01-13-2025 End: 01-13-[address] Kristina Richard MD Work Phone: -[facility] Start: 12-27-2024 End: 12-27-[address] Deangelo White MD -[facility] Work Phone: Start: 12-27-2024 End: 12-27-[address] Kristina Richard MD Work Phone: -[facility] Start: 12-07-2024 End: 12-07-[address] Kristina Richard MD Work Phone: -Laboratory Specimen Start: 12-07-2024 End: 12-07-[address] Davie Mckeon MD -Laboratory Specimen Work Phone: Start: 12-07-2024 End: 12-07-[address] Davie Mckeon MD -[facility] Work Phone: Start: 12-07-2024 End: 12-07-[address] Kristina Richard MD Work Phone: -[facility] Start: 12-07-2024 End: 12-07-2024 ambulatory Davie Mckeon Facility:[facility] Start: 11-17-2024 End: 11-17-[address] Kristina Richard MD Work Phone: -Outpatient Breast Imaging Start: 11-17-2024 End: 11-17-[address] Kristina Richard MD -Outpatient Breast Imaging Work Phone: Start: 11-17-2024 End: 11-17-20[facility] Facility:[facility] Start: 11-08-2024 End: 11-08-[address] Davie Mckeon MD -[facility] Work Phone: Start: 11-08-2024 End: 11-08-[address] Kristina Richard MD Work Phone: -[facility] Start: 11-01-2024 End: 11-01-[address] Kristina Richard MD Work Phone: [facility] Work Phone: Start: 11-01-2024 End: 11-01-[address] Sanjana Thomas MD -[facility] Work Phone: Start: 11-01-2024 End: 11-01-2024 ambulatory Sanjana Thomas Facility:[facility] Start: 10-27-2024 End: 10-27-[address] Kristina Richard MD Work Phone: -Cat Scan [facility] Start: 10-27-2024 End: 10-27-[address] Davie Mckeon MD -Cat Scan [facility] Work Phone: Start: 10-27-2024 End: 10-27-2024 ambulatory Davie Mckeon Facility:[facility] Start: 09-30-2024 End: 09-30-[address] Kristina Richard MD Work Phone: [facility] Work Phone: Start: 09-30-2024 End: 09-30-[address] Davie Mckeon MD -Laboratory Specimen Work Phone: Start: 09-30-2024 End: 09-30-[address] Davie Mckeon MD -[facility] Work Phone: Start: 09-30-2024 End: 09-30-2024 ambulatory Davie Mckeon Facility:[facility] Start: 09-30-2024 End: 09-30-2024 ambulatory Davie Mckeon Facility:[facility] Start: 08-30-2024 End: 08-30-[address] Kristina Richard MD -Ultrasound [facility] Work Phone: Start: 08-30-2024 End: 08-30-2024 ambulatory Kristina Richard Facility:[facility] Start: 08-12-2024 End: 08-12-[address] Kristina Richard MD Work Phone: [facility] Work Phone: Start: 08-12-2024 End: 08-12-[address] Sanjana Thomas MD -Laboratory, [place] Work Phone: Start: 08-12-2024 End: 08-12-2024 ambulatory Sanjana Thomas Facility:[facility] Start: 07-06-2024 End: 07-06-[address] Kristina Richard MD Work Phone: [facility] Work Phone: Start: 07-06-2024 End: 07-06-[address] Deangelo White MD -Laboratory, [place] Work Phone: Start: 07-06-2024 End: 07-06-2024 ambulatory Deangelo White Facility:[facility] Start: 07-01-2024 End: 07-01-[address] Deangelo White MD -[facility] Work Phone: Start: 07-01-2024 End: 07-01-2024 ambulatory Kristina Richard Facility:[facility] Start: 05-13-2024 End: 05-13-[address] [facility] Start: 05-13-2024 End: 05-13-2024 ambulatory Sanjana Thomas Facility:[facility] Start: 04-19-2024 End: 04-19-2024 Patient encounter procedure Stephen Carrizales -[facility] Work Phone: Start: 04-19-2024 End: 04-19-2024 ambulatory Stephen Carrizales Facility:[facility] Start: 09-03-2023 End: 09-04-2023 Emergency department patient visit [facility]-Emergency Department Work Phone: Start: 08-13-2023 End: 08-13-2023 ambulatory [facility] Work Phone: Start: 08-13-2023 End: 08-13-2023 Patient encounter procedure [facility] Work Phone: Start: 05-19-2023 End: 05-19-2023 Patient encounter procedure [facility] Work Phone: Start: 02-18-2023 End: 02-18-[address] Kristina Richard Work Phone: [facility] Work Phone: Start: 02-18-2023 End: 02-18-[address] Kristina Richard Work Phone: [facility] Work Phone: Start: 01-02-2023 End: 01-02-[address] [facility] Work [facility]: Start: 12-19-2022 End: 12-19-[address] Kristina Richard Work Phone: [facility] Work Phone: Start: 12-19-2022 End: 12-19-[address] Kristina [facility] Work [facility]: Start: 12-03-2022 End: 12-03-[address] Kristina Richard Work Phone: [facility] Work Phone: Start: 12-03-2022 End: 12-03-[address] Kristina Richard Work Phone: [facility] [place] Work Phone: Start: 11-18-2022 End: 11-18-[address] Kristina Richard Work Phone: [facility] Work Phone: Start: 11-06-2022 Non-patient / Non-visit Dr. Kristina Richard Work Phone: [facility] Start: 11-06-2022 End: 11-06-2022 Admission to same day surgery center Dr. Kristina Richard Work Phone: [facility]-Endoscopy Work Phone: Start: 11-06-2022 End: 11-06-[address] Kristina Richard Work Phone: [facility] Work Phone: Start: 09-16-2022 End: 09-16-[address] Kristina Richard Work Phone: [facility] Work Phone: Start: 09-16-2022 End: 09-16-[address] Kristina Richard Work Phone: [facility]-Outpatient Breast Imaging Start: 09-02-2022 End: 09-02-[address] Kristina Richard Work Phone: [facility] Work Phone: Start: 09-02-2022 End: 09-02-[address] Kristina Richard Work Phone: [facility] Start: 07-12-2022 End: 07-12-[address] Kristina Richard Work Phone: [facility] Work Phone: Start: 07-12-2022 End: 07-12-[address] Kristina Richard Work Phone: [facility] G[facility] Start: 06-28-2022 End: 06-28-2022 ambulatory [facility] Work Phone: Start: 06-28-2022 End: 06-28-2022 Patient encounter procedure [facility] Start: 04-01-2022 End: 04-01-[address] Kristina Richard Work Phone: [facility] Work Phone: Start: 04-01-2022 End: 04-01-[address] Kristina Richard Work Phone: [facility] Start: 01-04-2022 End: 01-04-[address] Kristina Richard Work Phone: [facility] Work Phone: Start: 01-04-2022 End: 01-04-[address] Kristina Richard Work Phone: [facility] Start: 12-11-2021 End: 12-11-[address] Krist[facility] Start: 12-10-2021 End: 12-10-[address] Kristina Richard Work Phone: [facility] Start: 11-19-2021 End: 11-19-2021 Emergency department patient [facility] Kristina [facility] Start: 10-15-2021 End: 10-15-[address] Kristina Richard Work Phone: [facility] Start: 09-19-2021 End: 09-19-[address] Kristina Richard Work Phone: [facility] Start: 08-21-2021 Non-patient / Non-visit Dr. Kristina Richard Work Phone: [facility] Start: 08-21-2021 End: 08-21-2021 Admission to same day surgery center Dr. Kristina Richard Work Phone: [facility]-Endoscopy Start: 08-09-2021 End: 08-09-[address] Kristina Richard Work Phone: [facility] Start: 07-30-2021 End: 07-30-[address] Kristina Richard Work Phone: [facility] Start: 07-26-2021 End: 07-26-[address] Kristina Richard Work Phone: [facility] Start: 07-16-2021 End: 07-16-[address] Kristina Richard Work Phone: [facility] Start: 07-02-2021 End: 07-02-[address] Kristina Richard Work Phone: [facility] Start: 06-15-2021 End: 06-15-[address] Kristina Richard Work Phone: [facility]-Cat Scan, [facility] Start: 06-11-[address] Kristina Richard Work Phone: [facility] Start: 11-24-2017 Patient encounter Raudel trujillo Gildardoessencenusratjohn Facility:[facility] Procedures Date Procedure Procedure Detail Performing Clinician Start: 02-24-2025 Thyroidectomy Shannan kwok MD Work Phone: Start: 01-28-2025 CT cervical spine wi thout contrast Shannan Pressley MD Work Phone: Start: 01-28-2025 CT of face Shannan sow MD Work Phone: Start: 01-28-2025 CT of head without contrast Shannan Pressley MD Work Phone: Start: 11-17-2024 Screening mammography Akua Richard MD [...] rivas Work Phone: Start: 09-16-2022 Screening mammography D debora Richard Work Phone: Start: 11-19-2021 Computed tomography [...] Dr. Kristina Richard Work Phone: Appendectomy Deangelo Oncandy History of Bladder Surgery R ayyuniel Mervin End: 12-29-2014 History of Complex Repair Of Wound Scalp Deangelo Oncandy History of Cranioplasty Raym ond Onders Hysterectomy Deangelo Oncandy Lactoferrin measurement Dr. Kristina Richard Work Phone: Total knee replacement Raymo nd Onders Total replacement of hip Ray yuniel Oncandy Viral antigen assay Dr. Kristina Richard Work Phone: Plan of Treatment Date Care Activity Detail Author Start: 03-07-2025 End: 03-07-2025 Patient encounter procedure History of lobectomy of thyroid -[facility] Work Phone: Start: 02-25-2025 Patient discharge [facility] Start: 02-24-2025 Application of intermittent pneumatic compression device [facility] Start: 02-24-2025 Following clinical pathway protocol [facility] Start: 02-24-2025 [facility] Start: 02-24-2025 Application of ice collar, cap or bag [facility] Start: 02-24-2025 Aspiration precautions [facility] Start: 02-24-2025 Elevation of head of bed [facility] Start: 02-24-2025 Admission procedure [facility] Start: 02-24-2025 [facility] Start: 02-08-2025 End: 02-08-2025 Patient encounter procedure Fracture of right orbital floor -[facility] Work Phone: Start: 02-01-2025 End: 02-01-2025 Patient encounter procedure Fracture of right orbital floor -[facility] Work Phone: Start: 01-31-2025 Patient encounter procedure Registered Clinical -Laboratory [place] Work Phone: Start: 01-28-2025 [facility] Start: 01-28-2025 Repair intermediate f/e/e/n/l&/muc 2.6-5.0 cm INTMD RPR FACE/MM 2.6-5.0 CM [facility] Start: 09-04-2023 [facility] Start: 11-06-2022 Colonoscopy w/biopsy single/multiple COLONOSCOPY AND BIOPSY [facility] Start: 11-06-2022 Patient discharge [facility] Start: 08-21-2021 Colonoscopy w/biopsy single/multiple COLONOSCOPY AND BIOPSY [facility] Work Phone: Start: 08-21-2021 Colsc flx w/rmvl of tumor polyp lesion snare tq COLONOSCOPY W/LESION REMOVAL [facility] Work Phone: Start: 08-21-2021 Egd transoral biopsy single/multiple EGD BIOPSY SINGLE/MULTIPLE [facility] Work Phone: Start: 08-21-2021 Egd transoral contro l bleeding any method EGD CONTROL BLEEDING ANY [facility] Work Phone: Start: 08-21-2021 Patient discharge [facility] Work Phone: CT Neck [facility] Lactoferrin [Presenc e] in Stool by Immunoassay [facility] Patient Education [facility] Work Phone: Patient referral [facility] Work Phone: Protein measurement [facility] Immunizations Immunization Date Immunization Notes Care Provider Fa ciliserina 01-28-2025 tetanus toxoid, redu haritha diphtheria toxoid, and acellular pertussis vaccine, adsorbed Shannan Pressley MD Work Phone: [facility] Payers Date Payer Category Payer Self-pay [id number] 2023 Medicare [id number] 2021 Private Health Insurance [id number] Unknown [id number] 2.16.8 [id number] Unknown [id number] 2.16.8 40.1.371424.3.579.2.462 Unknown [id number] 2.16.8 40.1.065847.3.579.2.462 Unknown [id number] 2.16.8 40.1.835599.3.579.2.462 Unknown [id number] 2.16.8 40.1.653369.3.579.2.462 Unknown [id number] 2.16.8 40.1.170643.3.579.2.462 Unknown [id number] 2.16.8 40.1.497377.3.579.2.462 Unknown [id number] 2.16.8 40.1.295459.3.579.2.462 Unknown [id number] 2.16.8 40.1.921790.3.579.2.462 Unknown [id number] 2.16.8 40.1.343255.3.579.2.462 Unknown [id number] 2.16.8 40.1.080380.3.579.2.462 Unknown [id number] 2.16.8 40.1.935601.3.579.2.462 Unknown [id number] 2.16.8 40.1.431680.3.579.2.462 Unknown [id number] 2.16.8 40.1.891822.3.579.2.462 Unknown [id number] 2.16.8 40.1.259376.3.579.2.462 Unknown [id number] 2.16.8 40.1.609830.3.579.2.462 Unknown [id number] 2.16.8 40.1.413605.3.579.2.462 Unknown [id number] 2.16.8 40.1.932100.3.579.2.462 Unknown [id number] 2.16.8 40.1.163535.3.579.2.462 Unknown [id number] 2.16.8 40.1.218149.3.579.2.462 Unknown [id number] 2.16.8 40.1.047102.3.579.2.462 Unknown [id number] 2.16.8 40.1.148708.3.579.2.462 Unknown [id number] 2.16.8 40.1.805786.3.579.2.462 Unknown [id number] 2.16.8 40.1.606091.3.579.2.462 Unknown [id number] 2.16.8 40.1.474060.3.579.2.462 Social History Date Type Detail Facility Assertion Tobacco smoking consumption unknown (finding) [facility] Work Phone: Start: 07-30-2021 End: 09-03-2023 Tobacco smoking status NHIS Unknown if ever smoked [facility] Start: 07-12-2021 None [facility] Start: 07-12-2021 Alone [facility] Start: 07-12-2021 Non-smoker [facility] Start: 1945 Sex Assigned At Female [facility] Start: 09-03-2023 End: 02-10-2025 Tobacco smoking status NHIS Never smoked tobacco (finding) [facility] Start: 07-20-2024 End: 08-18-2024 Sex Female (finding) [facility] Sex [facility] Medical Equipment Procedure Code Equipment Code Equipment Origin al Text Equipment Identifier Dates Thyroidectomy DRESSING,SURGICE L 4x8 FDA Start: 02-24-2025 Thyroidectomy SUTURE,LIGA CLIP SM [id number] FDA Start: 02-24-2025 Thyroidectomy SUTURE,LIGA CLIP SM [id number] FDA Start: 02-24-2025 Goals Date Patient Goal Desired Activity /State Functional Status Date Assessment Result Facility 02-25-2025 Functional status Ambulates [facility] Work Phone: NEGATED: Highlighted row Functional performance Functional status health issues are not documented Disease [facility] Work Phone: Mental Status Date Assessment Result Facility 02-25-2025 Cognitive function Voice/Name [facility] Work Phone: 09-03-2023 Cognitive function Level Of Cons ciousness Awake [facility] Work Phone: 08-21-2021 Cognitive function Level Of Cons ciousness Awake;Drowsy [facility] Work Phone: 08-21-2021 Cognitive function Voice/Name [facility] Work Phone: NEGATED: Highlighted row Cognitive function [Interpretation] Cognitive status health issues are not documented Disease [facility] Work Phone: Clinical Notes 11-06-2022 to 02-25-2025 Note Date & Type Note Facility 02-25-2025 Procedure note [facility] 02-25-2025 Discharge summary [facility] 02-25-2025 Note [facility] Medical Records Department [address] [place] [address] Discharge Summary 02/25/25 0917 MR#: [id number] Acct: [id number] Name: ANNE DUARTE Rep #: [id number] : 1945 79 From: Davie Mckeon MD PCP: Dr. Shannan Pressley MD Status:ADM PRAVIN Location: [place] [address] Providers Date of Admission: 02/24/25 Primary Care Physician: Shannan Pressley MD Reason For Visit: STATUS POST THYROID LOBECTOMY Medications at Discharge Home Medications Omeprazole [Prilosec] 40 mg PO DAILY 10/21/14 cholecalciferol (vitamin D3) 25 mcg (1,000 unit) capsule 25 mcg PO DAILY 07/27/21 methotrexate sodium 2.5 mg tablet 15 mg PO FR 07/27/21 nortriptyline 25 mg capsule 25 mg PO QHS 07/27/21 zinc 50 mg tablet 50 mg PO QODAY 07/27/21 loratadine 10 mg tablet 10 mg PO DAILY 08/20/21 Lactobacillus acidophilus and rhamnosus 15 billion cell capsule (Probiotic) 1 cap PO DAILY 10/31/22 losartan 50 mg tablet 50 mg PO QDAY 04/19/24 Potassium 1 tab PO MOWEFR LOW K+ 07/01/24 calcium carbonate (Calcium 600) 600 mg PO DAILY 07/01/24 cranberry extract 500 mg capsule 500 mg PO QDAY 07/01/24 docusate sodium 50 mg capsule (Stool Softener) 50 mg PO QDAY 07/01/24 folic acid 1 mg tablet 2 mg PO DAILY 07/01/24 balsalazide 750 mg capsule 750 mg PO BID colitis #180 caps 09/17/24 tramadol 50 mg tablet 50 mg PO Q8H PRN pain 5 days #15 tabs 01/28/25 ketoconazole 2 % topical cream 1 applic topical BID PRN SKIN 02/01/25 timolol maleate 0.5 % eye drops 1 drp ophthalmic (eye) BID 02/10/25 Hospital Course Operations - (Right thyroid lobectomy) Summary of Care Provided Hospital Course: Patient is 79-year-old female history multinodular goiter and compressive symptoms who underwent right thyroid lobectomy with intraoperative nerve monitoring on 02/24/2025. Although procedure proceeded in uncomplicated fashion there was some more bleeding associated with the removal of this large specimen likely owing to an element of venous hypertension. Additionally patient was labile with her blood pressures intraop and postoperatively was hypertensive. With this combination I elected to admit patient to an observational stay postoperatively. This observational stay proceeded uneventfully. Morning postoperative day 1 patient reports improved pain control and exam is reassuring. Therefore postoperative activity and wound care instructions were reviewed and patient was granted discharged home. Physical Exam Const alert, oriented x3 and no apparent distress General Appearance: cooperative and comfortable Neck Neck Narrative: Operative dressing is clean dry and intact, soft tissues remain soft. Patient denies any tenderness with palpation. Weight / BMI Weight Weight: 200 lb Body Mass Index (BMI) 37.8 D/C Instructions May shower in (days): 1 Ice area for (Minutes): 20 Call your doctor if your incision/area has: Continuous Slow Oozing, Sudden Increased Bleeding, Increased Pain/ Swelling, Increased Redness and Swelling at the incision site Call your doctor if you observe: Numbness or Tingling Cleanse incision/area with: Soap Water DC O2, CPAP, BIPAP Needs Home O2 Discharge instructions: No Please Follow Up With: Davie Mckeon MD When: 7-10 days postop Meaningful Use Info Meaningful Use Meaningful Use Diagnoses (Choose all that apply): None applicable Discharge Plan Admission Admit Date/Time: 02/24/25 11:15 Primary Reason for Your Visit: Thyroid surgery Attending Provider: Davie Mckeon Primary Care Provider: Shannan Pressley Discharge Orders/Prescriptions Prescriptions: Continued zinc 50 mg tablet 50 mg PO QODAY cholecalciferol (vitamin D3) 25 mcg (1,000 unit) capsule 25 mcg PO DAILY nortriptyline 25 mg capsule 25 mg PO QHS Potassium 99 mg tablet 1 tab PO MOWEFR losartan 50 mg tablet 50 mg PO QDAY cranberry extract 500 mg capsule 500 mg PO QDAY Rx Instructions: administer with meals Stool Softener 50 mg capsule 50 mg PO QDAY ketoconazole 2 % cream 1 applic topical BID PRN (Reason: SKIN) Omeprazole [Prilosec] 40 MG capsule 40 mg PO DAILY methotrexate sodium 2.5 mg tablet 15 mg PO FR Rx Instructions: 6 tabs PO QWEEK-TAKES ON FRIDAY folic acid 1 mg tablet 2 mg PO DAILY loratadine 10 mg Tablet 10 mg PO DAILY calcium carbonate [Calcium 600] 600 mg calcium (1,500 mg) tablet 600 mg PO DAILY Probiotic 15 billion cell Capsule 1 cap PO DAILY timolol maleate 0.5 % drops 1 drp ophthalmic (eye) BID tramadol 50 mg tablet 50 mg PO Q8H PRN (Reason: pain) 5 Days Qty: 15 0RF balsalazide 750 mg capsule 750 mg PO BID Qty: 180 3RF Referrals / Follow Up: Shannan Pressley MD [Primary Care Provider, Family Practice] Disposition Disposition (needs filled in before D/C Order can be placed): Home, Self Care Charges/Coding Visit Charges Inpatient E M: 66423 Disch Hosp (more content not included)... [facility] 02-25-2025 Discharge summary [facility] 02-24-2025 Consult note Note Date/Time February 24, 2025 2:13pm [facility] Medical Records Department [address] [place] [address] Anesthesia Postop Eval II 02/24/25 1412 MR#: [id number] Acct: [id number] Name: ANNE DUARTE GENA Rep #:[id number] : 1945 79 From: Son Fatima PCP: Dr. Shannan Pressley MD Status:ADM IN O Y Race: C Location: [facility] -1 Anesthesia Postop Eval I Sum Postop Eval Completion status Anesthesia document: Postop Eval 1 completed: Yes Anesthesia Postop Eval I Summary Anesthesia Postop Eval I Summary: Anesthesia Postop Eval I: Assessment Summary Airway patent Yes 02/24/25 11:24 [email or web address] Spontaneous unlabored Yes 02/24/25 11:24 LIME [email or web address] respirations Mental status Awake,Calm 02/24/25 11:24 [email or web address] nausea No 02/24/25 11:24 LIME [email or web address] Vomiting No 02/24/25 11:24 [email or web address] Anesthesia Postop Eval I: Fluid Summary Crystalloid volume administer 1,300 02/24/25 11:24 LIME [email or web address] (ml) Colloids volume administered ( ml) Blood Product volume administered (ml) Total IV fluid infused 1,300 02/24/25 11:24 LIME [email or web address] Anesthesia Postop Eval I: Summary Notes Anesthesia Complication No 02/24/25 11:24 [email or web address] Anesthesia Complication Comment: Post-operative progress note Anesthesia: Postop Eval II Evaluation Mental status: Awake and Calm Pain Level: 1 nausea: No Vomiting: No Progress Note Post-operative progress note: The surgeon requested SBP below 160 mmHg. In PACUtreated twice with labetalol 5 mg IV with better control with SBP around 140 mmHg. The patient was admitted to the floor from PACU for overnight stay. The surgeon aware of the blood pressure treatments. Complications Anesthesia Complication: No 02/24/25 1413 <Electronically signed by Son Black MD> Date _ Son Black MD Cosigner Signature: Date CC: ~ Signed [facility] Work Phone: [phone] 704-903310-16-2025 Consult note [facility] Medical Records Department [address] [place] [id number] Anesthesia Postop Eval II 02/24/25 1412 MR#: [id number] Acct: [id number] Name: ANNE DUARTE GENA Rep #:[id number] : 1945 79 From: Son Fatima PCP: Dr. Shannan Pressley MD Status:ADM IN O Y Race: C Location[place] [facility] [id number] -1 Anesthesia Postop Eval I Sum Postop Eval Completion status Anesthesia document: Postop Eval 1 completed: Yes Anesthesia Postop Eval I Summary Anesthesia Postop Eval I Summary: Anesthesia Postop Eval I: Assessment Summary Airway patent Yes 02/24/25 11:24 [email or web address] [email or web address] Spontaneous unlabored Yes 02/24/25 11:24 LIME [email or web address].SHOF respirations Mental status Awake,Calm 02/24/25 11:24 LIME SLAKER.SHOF nausea No 02/24/25 11:24 LIME SLAKER.SHOF Vomiting No 02/24/25 11:24 LIME SLAKER.SHOF Anesthesia Postop Eval I: Fluid Summary Crystalloid volume administer 1,300 02/24/25 11:24 LIME SLAKER.SHOF (ml) Colloids volume administered ( ml) Blood Product volume administered (ml) Total IV fluid infused 1,300 02/24/25 11:24 LIME SLAKER.SHOF Anesthesia Postop Eval I: Summary Notes Anesthesia Complication No 02/24/25 11:24 LIME SLAKER.SHOF Anesthesia Complication Comment: Post-operative progress note Anesthesia: Postop Eval II Evaluation Mental status: Awake and Calm Pain Level: 1 nausea: No Vomiting: No Progress Note Post-operative progress note: The surgeon requested SBP below 160 mmHg. In PACUtreated twice with labetalol 5 mg IV with better control with SBP around 140 mmHg. The patient was admitted to the floorfrom PACU for overnight stay. The surgeon aware of the blood pressure treatments. Complications Anesthesia Complication: No 02/24/25 1413 > Date _ Son Black MD Cosigner Signature: Date CC: ~ Signed [facility]10-16-2025 Consult note Author Clay Guerrero [facility] Note Date/Time February 24, 2025 1 1:24am [facility] Medical Records Department [address] [place] [address] Anesthesia Postop Eval I 02/24/25 1123 MR#: [id number] Acct: [id number] Name: ANNE DUARTE GENA Rep #:[id number] : 1945 79 From: Clay Guerrero CRNA PCP: Dr. Shannan Pressley MD Status:REG SD C Y Race: C Location: [place] [address] Anesthesia: Postop Eval I Current Vital Signs Temperature: 97.2 F Pulse Rate: 78 Blood Pressure: 130/64 Respiratory Rate: 12 Pulse Ox: 96 Oxygen Delivery Method: Nasal Cannula Oxygen Flow Rate (L/min): 4 Assessment Airway patent: Yes Spontaneous unlabored respirations: Yes Mental status: Awake and Calm nausea: No Vomiting: No Anesthesia Complication: No Fluid Hydration Crystalloid volume administer (ml): 1,300 Total IV fluid infused: 1,300 Progress Note Anesthesia document: Postop Eval 1 completed: Yes 02/24/25 112 <Electronically signed by Clay vidal LIME SLAKER> Date _ Clay Guerrero LIME SLAKER Cosigner Signature: Date CC: ~ Signed [facility] Work Phone: 1(607) 566-732810-16-2025 Consult note [facility] Medical Records Department [address] [place] [address] Anesthesia Postop Eval I 02/24/251122 MR#: [id number] Acct: [id number] Name: ANNE DUARTE GENA Rep #:[id number] : 1945 79 From: Clay Guerrero LIME SLAKER PCP: Dr. Shannan Pressley MD Status:REG SD C Y Race: C Location: [place] [address] Anesthesia: Postop Eval I Current Vital Signs Temperature: 97.2 F Pulse Rate: 78 Blood Pressure: 130/64 Respiratory Rate: 12 Pulse Ox: 96 Oxygen Delivery Method: Nasal Cannula Oxygen Flow Rate (L/min): 4 Assessment Airway patent: Yes Spontaneous unlabored respirations: Yes Mental status: Awake and Calm nausea: No Vomiting: No Anesthesia Complication: No Fluid Hydration Crystalloid volume administer (ml): 1,300 Total IV fluid infused: 1,300 Progress Note Anesthesia document: Postop Eval 1 completed: Yes 10/16/25 1124 an LIME SLAKER> Date _ Clay Guerrero LIME SLAKER Cosigner Signature: Date CC: ~ Signed [facility]10-16-2025 History and physical note Author Davie Mckeon [facility] Note Date/Time February 24, 2025 7 :16am [facility] Medical Records Department [address] [place] [address] History & Physical Exam 02/24/25714 MR#: [id number] Acct: [id number] Name: ANNE DUARTE GENA Rep #:[id number] : 1945 79 From: Davie Fatima PCP: Dr. Shannan Pressley MD Status:REG SD C Location: [place] [address] History and Physical Date of Admission: 02/24/25 Date of Service: 01/13/25 MR#: [id number] Acct: [id number] Name: ANNE DUARTE GENA Rep #: [id number] : 1945 Provider: Dr. 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 Required: No Accompanied by: Daughter Is patient in pain?: No Allergies aspirin Allergy (Verified 01/13/25 09:30) Unknown codeine Allergy (Verified 01/13/25 09:30) Unknown Sulfa (Sulfonamide Antibiotics) Allergy (Verified 01/13/25 09:30) Unknown Medications ?Medication ?Instructions ?Recorded ?Confirmed ?Type Omeprazole [Prilosec] 40 mg PO DAILY 10/21/14 01/13/25 History cholecalciferol (vitamin D3) 25 25 mcg PO DAILY 07/27/21 01/13/25 Histor y mcg (1,000 unit) capsule conjugated estrogens 0.625 mg/gram 1.25 mg vaginal QWEEK 07/27/21 01/13/25 History vaginal cream (Premarin) methotrexate sodium 2.5 mg tablet See Rx Instructions .Route .COMPLEX 07/27/21 01/13/25 History nortriptyline 25 mg capsule 25 mg PO QHS 07/27/21 01/13/25 History zinc 50 mg tablet 50 mg PO QODAY 07/27/21 01/13/25 History latanoprost 0.005 % eye drops 1 drp EACH EYE QHS 08/20/21 01/13/25 His tory loratadine 10 mg tablet 10 mg PO DAILY 08/20/21 01/13/25 History Lactobacillus acidophilus and 1 cap PO DAILY 10/31/22 01/13/25 History rhamnosus 15 billion cell capsule (Probiotic) losartan 50 mg tablet 50 mg PO QDAY 04/19/24 01/13/25 History Potassium 1 tab PO 3XW LOW K+ 07/01/24 01/13/25 Hi story calcium carbonate (Calcium 600) 600 mg PO DAILY 07/01/24 01/13/25 Histor y cranberry extract 500 mg capsule 500 mg PO QDAY 07/01/24 01/13/25 History docusate sodium 50 mg capsule 50 mg PO QDAY 07/01/24 01/13/25 History (Stool Softener) folic acid 1 mg tablet 2 mg PO BID 07/01/24 01/13/25 History tramadol 50 mg tablet 50 mg PO TID PRN 07/01/24 01/13/25 Histo ry balsalazide 750 mg capsule 750 mg PO BID #180 caps 09/17/24 5 Rx Have you fallen in the past [...] thyroid disorders or endocrinopathies. There is no history of prior radiation exposure. Previous work-up has included thyroid ultrasound. This study was performed on 08/30/2024 and showed a right thyroid lobe measuring 7.3 x 5.0 x 3.4 cm. Within this lobe radiology identified a dominant nodule measuring 5.9 x 5.3 x 3.1 cm in the lower pole and biopsy was recommended. The left thyroid lobe measured 3.7 x 1.2 x 1.7 cm. Within this lobe radiology identified a nodule measuring 1.0 x 0.9 x 0.7 cm with a partially calcified appearance of the lower pole.. An FNA has not been performed. Other tests include: TSH: 3.29 (07/06/2024) ROS General General: No weight change, appetite, fatigue, colon cancer, breast cancer or weakness HEENT HEENT: Yes eye surgery and swollen glands; No difficulty swallowing, eye injury or hoarseness Endo Endocrine: No thyroid disease, diabetes mellitus, thyroid cancer, Hair loss, heat intolerance or cold intolerance Skin Skin: No rash or changing moles Musc Musculoskeletal: Yes back problems, arthritis and rheumatoid arthritis; No gout or joint pain Cardio Cardiovascular: No murmur, pacemaker, heart disease, atrial fibrillation, high blood pressure, heart attack, heart stent, palpitations, shortness of breath with exertion or chest pain Psych Psychiatric: No depression, anxiety or hearing voices Resp Respiratory: No shortness of breath, No sleep apnea, No cough, No COPD, No asthma, No emphysema and No wheezing Gastro Gastrointestinal: No abdominal pain, No nausea or vomiting, No diarrhea, No constipation, No blood in stool, No acid reflux, No hemorrhoids, No ulcers, No gallbladder problem and No black,tarry stools [place] Hematologic: No blood thinners, No blood disorders, No bleeding, No anemia and No blood clots Neuro Neurologic: No system reviewed and no additional complaints, except as documented, No as per HPI, No abnormal gait, No abnormal hearing, No abnormal movements, No abnormal speech, No behavioral changes, No burning sensations, No confusion, No convulsions, No disequilibrium, No dizziness, No localized weakness, No frequent falls, No headache(s), No lack of coordination, No loss of vision, No memory loss, No numbness, No other visual disturbances, No radicular pain, No restless legs, No sensory deficit, No syncope, No tingling, No tremor(s), No weakness and No other Exam Const General: cooperative Orientation: alert, awake and oriented x3 Neck Other: Enlarged right thyroid lobe but no palpable cervical lymphadenopathy. There is a skin fold that appears to directly overlies location of patient's cricoid cartilage. Resp Effort & Inspection: normal respiratory effort Assessment and Plan Assessment and Plan (1) Thyroid nodule: Status: Acute Comment: Patient is 78-year-old female, euthyroid from an endocrine standpoint, who [...] to determine if they are connected or not?especially given the large size of the nodule. I reviewed the results of her recent ultrasound with her and her daughter. And drawing was made to help facilitate comprehension. I shared that although no TI- RADS rating was given by radiology I would rate this a TI-RADS 3 based on imaging characteristics of being mostly solid and hyperechoic. It easily met the threshold by ACR criteria for biopsy so this recommendation was extended to the patient and she readily excepted. Procedure was undertaken in uncomplicated fashion and full details are given in the procedures section of this note. Update 11/08/2024: Patient underwent CT imaging on 10/27/2024 [...] be total thyroidectomy or hemithyroidectomy. I highlighted procedure?specific risks of recurrent laryngeal nerve injury and [...] will schedule her for a biopsy visit. Update 12/07/2024: Patient presented today for left-sided FNA [...] conservative surgery. Patient and her family saw [place] this recommendation and thus we proceeded with biopsy of the nodule in question during today's visit. This was technically challenging given the presence of calcifications. Complete details are given in the procedures section of this note. Update 01/13/2025: Patient presents today to discuss possible right thyroid lobectomy with isthmusectomy given large right thyroid nodule that is discrepant to much smaller left thyroid lobe. Suggested there was little utility in considering repeat biopsy of patient's partially calcified left thyroid nodule and further shared CT imaging of the cervical spine performed November 2021 that showed evidence of this nodule at the time of that study measuring approximately what radiology measured during this year studies. I went on to describe my recommendation against trying to incorporate this nodule in the resected surgical specimen on account of increased risk with little perceived benefit. I used a hand-drawn schematic to illustrate the procedure?specific risks including recurrent laryngeal nerve injury and hypoparathyroidism. Patient and her daughter confirmed understanding of this information. I shared that I would plan for this to be an outpatient procedure but would not be able to exclude the possibility of an overnight observation. Patient names a number of upcoming family commitments and wishes to proceed operatively after these events. Plan: Right thyroid lobectomy with isthmusectomy using intraoperative nerve monitoring. Outpatient disposition expected. Anticipate scheduling a week of 02/21/2025 or 02/28/2025. I have examined the patient the following changes are noted: Since our last visit patient presented to the emergency department following a traumatic ground-level fall 01/28/2025. She was diagnosed with a orbital fracture on the right. However, she did not require operative intervention from plastic surgery and has been cleared by ophthalmology. She denies any visual changes today. She also denies any other health changes. Operative expectations and postoperative instructions were both reviewed. Questions were taken from patient and her daughters. She confirms her readiness to proceed and consents were confirmed. Will now proceed to the operating room for right thyroid lobectomy with isthmusectomy using intraoperative nerve monitoring. 02/24/25 0716 <Electronically signed by Davie Mckeon MD> Cosigner Signature (if applicable): CC: Dr. Shannan Pressley MD; Dr. Davie Mckeon MD~ Signed [facility] Work Phone: 1(814) 207-274910-16-2025 Consult note Author Son Black [facility] Note Date/Time February 24, 2025 6 :58am [facility] Medical Records Department [address] [place] [address] Pre-Anesthesia Evaluation 02/24/25 0652 MR#: [id number] Acct: [id number] Name: ANNE DUARTE Rep #:[id number] : 1945 79 From: Son Fatima PCP: Dr. Shannan Pressley MD Status:REG SD C Y Race: C Location: [place] [address]1 ASA Classification* ASA Classification ASA Classification: 2 Assessment & Plan Anesthesia* Anesthesia Assessment Anesthesia Assessment: Discussed sedation and/or anesthesia options, risks, benefits, and alternatives with patient/parents/legal guardian/POA. Questions invited. The patient/parents/legal guardian/POA seems to understand and agrees to proceedwith anesthesia plan. Reviewed the physical assessment, medical history, allergy history and patient home medications list prior to surgery/procedure/anesthetic and documented any changes. Performed airway and anesthesia risk assessments. Anesthesia Type Anesthesia Type: General History Source History Obtained from:: Patient and Chart Anesthesia Focused Assessment* Temperature: 97.4 F Pulse Rate: 90 Blood Pressure: 131/97 Respiratory Rate: 16 Pulse Ox: 96 Oxygen Delivery Method: Room Air Airway Assessment Mouth opens: >3 cm Mallampati Score: II Teeth Condition: Missing Neck Range of motion (ROM): Full ROM Labs Anesthesia Preop lab: CBC WBC, (4.4-11.0) 3.9 K/mm3 L 01/31/25, 16:49 RBC, (4.2-5.4) 4.18 M/mm3 L 01/31/25, 16:49 Hgb, (12.0-15.0) 12.6 g/dL 01/31/25, 16:49 Hct, (37-47) 40.3 % 01/31/25, 16:49 Plt Count, (150-450) 273 K/mm3 01/31/25, 16:49 CHEMISTRY Potassium, (3.3-5.1) 4.1 mmol/L 01/31/25, 16:49 Sodium, (133-145) 138 mmol/L 01/31/25, 16:49 BUN, (4-19) 15 mg/dL 01/31/25, 16:49 Creatinine, (0.70-1.20) 0.71 mg/dL 01/31/25, 16:49 Glucose, (70-99) 85 mg/dL 01/31/25, 16:49 TSH, (0.300-4.200) 3.290 uIU/mL 07/06/24, 08:46 COAG PT, (11.7-14.9) 14.7 SECONDS 09/03/23, 22:07 Pre-Assessment Diagnosis/Proposed Procedure Planned Operative Procedure(s): RIGHT THYROID LOBECTOMY WITH ISTHMUS AND IONM Anesthesia History 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 When Was Last Pacemaker Check QUESTION #4 FULL TEXT: You/Your Family Experience fever (hyperthermia) with Anesthesia Last Oral Intake Last Oral intake: Last Oral Intake NPO since 21:00 02/24/25 06:26 Meds taken in AM with sips of water? 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 Female Yes 02/10/25 10:04 HX of Motion Sickness No 02/10/25 10:04 HX of N/V After Surgery Yes 02/10/25 10:04 Non-Smoker Yes 02/10/25 10:04 Duration of Surgery greater Yes 02/10/25 10:04 than 60 minutes Number of Risk Factors 4 02/10/25 10:04 PONV Score Severe Risk 02/10/25 10:04 Height & Weight Height & Weight: Anesthesia: Height & Weight Height 5 ft 1 in 02/24/25 06:26 Weight: 90.718 kg 02/24/25 06:26 Body Mass Index (BMI) 37.8 02/24/25 06:26 Respiratory Assessment Respiratory Assessment - posting machine operator: Respiratory 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 Has anyone observed you stop No 02/10/25 10:04 breathing during sleep? STOP Results Negative 02/10/25 10:04 QUESTION #5 FULL TEXT : Do you snore loudly (louder than talking or can be heard through closed doors)? 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 Specify any problems Hx of Preganancy in last 3 No 02/10/25 10:04 Months Nurse Filling Out Transfusion DSCHRIBER 02/10/25 10:04 & Questions: Date: 02/10/25 02/10/25 10:04 Time: 10:06 02/10/25 10:04 Patient unable to answer at this time (ie. 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 Hx Now No 02/10/25 10:04 Gestational Age (in weeks): EDC: Hx Hx Para Hx Section SAB No 02/10/25 10:04 Active Medications Active Medications: Current Medications Generic Name Dose Route Start Last Admin Trade Name Freq PRN Reason Stop Dose Admin Lactated Ringer's 1,000 mls @ 15 mls/hr 02/24/25 06:00 02/24/25 06:00 IV 15 mls/hr .Q48H DIANNE Administration PFSH Medical History Ambulates with cane Back pain Injury of head and neck History of edema Fracture of right orbital floor Hypertension Goiter Thyroid nodule Mass of right side of neck Brain aneurysm Restless legs Rheumatoid arthritis History of rheumatic fever Wears glasses Post-menopausal Gastric reflux Non-smoker Shortness of breath on exertion History of pain when walking GERD (gastroesophageal reflux disease) Arthritis Rectal bleeding Home Medications ?Medication ?Instructions ?Recorded ?Last Taken ?Type Omeprazole [Prilosec] 40 mg PO DAILY 10/21/1402/09 05:00 History cholecalciferol (vitamin D3) 25 25 mcg PO DAILY 02/23/25 History mcg (1,000 unit) capsule methotrexate sodium 2.5 mg tablet 15 mg PO FR 07/27/21 02/18/25 History nortriptyline 25 mg capsule 25 mg PO QHS 07/27/2102/09 History zinc 50 mg tablet 50 mg PO QODAY 07/27/2102/09 History loratadine 10 mg tablet 10 mg PO DAILY 08/20/2102/09 History Lactobacillus acidophilus and 1 cap PO DAILY 10/31/22 02/23/25 History rhamnosus 15 billion cell capsule (Probiotic) losartan 50 mg tablet 50 mg PO QDAY 04/19/2402/24 05:00 History Potassium 1 tab PO MOWEFR LOW K+ 07/0102/23/25 History calcium carbonate (Calcium 600) 600 mg PO DAILY 02/23/25 History cranberry extract 500 mg capsule 500 mg PO QDAY 02/23/25 History docusate sodium 50 mg capsule 50 mg PO QDAY 07/01/24 1 History (Stool Softener) folic acid 1 mg tablet 2 mg PO DAILY 07/01/2402/23 History balsalazide 750 mg capsule 750 mg PO BID colitis #180 caps 09/17/24 02/23/25 Rx tramadol 50 mg tablet 50 mg PO Q8H PRN pain 5 days #15 01/28/25 02/23/25 Rx tabs ketoconazole 2 % topical cream 1 applic topical BID [place] N SKIN 02/01/25 Unknown History timolol maleate 0.5 % eye drops 1 drp ophthalmic (eye) BID 02/10/25 02/23/25 History Allergy/AdvReac Type Severity Reaction Status Date / Time aspirin Allergy Hives Verified 02/24/25 06:18 codeine Allergy Hives Verified 02/24/25 06:18 Sulfa (Sulfonamide Allergy Hives Verified 02/24/25 06:18 Antibiotics) Family History Father Cancer bladder Mother Heart disease Surgical History Hx of colonoscopy Hx of brain surgery Hx of total hip arthroplasty Hx of bladder repair surgery Hx of breast biopsy Hx of arthroscopic knee surgery Hx of arthroscopy of shoulder Hx of appendectomy Hx of hysterectomy Social History Smoking Status: Never smoker alcohol intake: never substance use type: does not use what type of physical activity do you participate in: none additional social history: pt denies vaping, denies edibles, denies marijuana use, denies aspirin and ibuprofen use, denies family history of blood clots/disorders Review of Systems (Anesthesia) ROS Narrative System reviewed and no additional complaints, except as documented. 02/24/25657 <Electronically signed by Son Black MD> Date _ Son Black MD Cosigner Signature: Date CC: ~ Signed [facility] Work Phone: 1(474) 151-715510-16-2025 History and physical note [facility] Medical Records Department [address] [place] [address] History & Physical Exam 02/24/2515 MR#: [id number] Acct: [id number] Name: ANNE DUARTE Rep #:[id number] : 1945 79 From: Davie Fatima PCP: Dr. Shannan Pressley MD Status:REG SD C Location: [place] [address] History and Physical Date of Admission: 02/24/25 Date of Service: 01/13/25 MR#: [id number] Acct: [id number] Name: ANNE DUARTE Rep #: [id number] : 1945 Provider: Dr. 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 Required: No Accompanied by: Daughter Is patient in pain?: No Allergies aspirin Allergy (Verified 01/13/25 09:30) Unknown codeine Allergy (Verified 01/13/25 09:30) Unknown Sulfa (Sulfonamide Antibiotics) Allergy (Verified 01/13/25 09:30) Unknown Medications ?Medication ?Instructions ?Recorded ?Confirmed ?Type Omeprazole [Prilosec] 40 mg PO DAILY 10/21/14 01/13/25 History cholecalciferol (vitamin D3) 25 25 mcg PO DAILY 07/27/21 01/13/25 Histor y mcg (1,000 unit) capsule conjugated estrogens 0.625 mg/gram 1.25 mg vaginal QWEEK 07/27/21 01/13/25 History vaginal cream (Premarin) methotrexate sodium 2.5 mg tablet See Rx Instructions .Route .COMPLEX 07/27/21 01/13/25 History nortriptyline 25 mg capsule 25 mg PO QHS 07/27/21 01/13/25 History zinc 50 mg tablet 50 mg PO QODAY 07/27/21 01/13/25 History latanoprost 0.005 % eye drops 1 drp EACH EYE QHS 08/20/21 01/13/25 His tory loratadine 10 mg tablet 10 mg PO DAILY 08/20/21 01/13/25 History Lactobacillus acidophilus and 1 cap PO DAILY 10/31/22 01/13/25 History rhamnosus 15 billion cell capsule (Probiotic) losartan 50 mg tablet 50 mg PO QDAY 04/19/24 01/13/25 History Potassium 1 tab PO 3XW LOW K+ 07/01/24 01/13/25 Hi story calcium carbonate (Calcium 600) 600 mg PO DAILY 07/01/24 01/13/25 Histor y cranberry extract 500 mg capsule 500 mg PO QDAY 07/01/24 01/13/25 History docusate sodium 50 mg capsule 50 mg PO QDAY 07/01/24 01/13/25 History (Stool Softener) folic acid 1 mg tablet 2 mg PO BID 07/01/24 01/13/25 History tramadol 50 mg tablet 50 mg PO TID PRN 07/01/24 01/13/25 Histo ry balsalazide 750 mg capsule 750 mg PO BID #180 caps 09/17/24 5 Rx Have you fallen in the past [...] complain of a new cough. They do notappreciate new voice changes. They do have a history of snoring/sleep apnea. Additionally, their weight has been stable and they do not have a history of weight gain/loss or aninability to lose despite intentional effort. There is no history of recent fatigue. They do have ahistory of heat and cold intolerance. Other symptoms include: Pertinent positives: Unusual sweating(nocturnal), pertinent negatives: Denial of palpitations, anxiety, irregular bowel habits. They do not have a family history of thyroid disorders or endocrinopathies. There is no history of prior radiation exposure. Previous work-up has included thyroid ultrasound. This study was performed on 08/30/2024 and showed a right thyroid lobe measuring 7.3 x 5.0 x 3.4 cm. Within this lobe radiology identified a dominant nodule measuring 5.9 x 5.3 x 3.1 cm in the lower pole and biopsy was recommended. The left thyroid lobe measured 3.7 x 1.2 x 1.7 cm. Within this lobe radiology identified a nodule measuring 1.0 x 0.9 x 0.7 cm with a partially calcified appearance of the lower pole.. An FNA has not been performed. Other tests include: TSH: 3.29 (07/06/2024) ROS General General: No weight change, appetite, fatigue, colon cancer, breast cancer or weakness HEENT HEENT: Yes eye surgery and swollen glands; No difficulty swallowing, eye injury or hoarseness Endo Endocrine: No thyroid disease, diabetes mellitus, thyroid cancer, Hair loss, heat intolerance or cold intolerance Skin Skin: No rash or changing moles Musc Musculoskeletal: Yes back problems, arthritis and rheumatoid arthritis; No gout or joint pain Cardio Cardiovascular: No murmur, pacemaker, heart disease, atrial fibrillation, high blood pressure, heart attack, heart stent, palpitations, shortness of breath with exertion or chest pain Psych Psychiatric: No depression, anxiety or hearing voices Resp Respiratory: No shortness of breath, No sleep apnea, No cough, No COPD, No asthma, No emphysema andNo wheezing Gastro Gastrointestinal: No abdominal pain, No nausea or vomiting, No diarrhea, No constipation, No blood in stool, No acid reflux, No hemorrhoids, No ulcers, No gallbladder problem and No black,tarry stools Vance Hematologic: No blood thinners, No blood disorders, No bleeding, No anemia and No blood clots Neuro Neurologic: No system reviewed and no additional complaints, except as documented, No as per HPI, No abnormal gait, No abnormal hearing, No abnormal movements, No abnormal speech, No behavioral changes, No burning sensations, No confusion, No convulsions, No disequilibrium, No dizziness, No localized weakness, No frequent falls, No headache(s), No lack of coordination, No loss of vision, No memory loss, No numbness, No other visual disturbances, No radicular pain, No restless legs, No sensory deficit, No syncope, No tingling, No tremor(s), No weakness and No other Exam Const General: cooperative Orientation: alert, awake and oriented x3 Neck Other: Enlarged right thyroid lobe but no palpable cervical lymphadenopathy. There is a skin fold that appears to directly overlies location of patient's cricoid cartilage. Resp Effort & Inspection: normal respiratory effort Assessment and Plan Assessment and Plan (1) Thyroid nodule: Status: Acute Comment: Patient is 78-year-old female, euthyroid from an endocrine standpoint, who presents for surgical consultation related to a newly discovered right thyroid nodule. This nodule is quite large and located in the right inferior pole. On initial elicitation of history patient does not seem to endorse anycompressive symptoms but then goes on to describe some difficulty breathing at night. Therefore, itis difficult to determine if they are connected or not?especially given the large size of the nodule. [...] in the procedures section of this note. Update 11/08/2024: Patient underwent CT imaging on 10/27/2024 [...] be total thyroidectomy or hemithyroidectomy. I highlighted procedure?specific risks of recurrent laryngeal nerve injury and hypoparathyroidism. I discussed how these risks are proportionally related to the degree of surgery undertaken. I added that myrecommendation would likely be for a hemithyroidectomy, however, I qualify this recommendation stating that I also recommended pursuing biopsy of a 1 cm left-sided TI-RADS 4 thyroid nodule (this nodule is just shy of a TI-RADS 5 rating) before I could confirm this recommendation. I demonstrated from the original CT imaging how this nodule would otherwise lie directly on the new transection marginafter an isthmusectomy would be performed and that future surveillance could very probably lead to its investigation/evaluation for possible removal. Patient's daughters were particularly receptive but patient did confirm understanding. We will schedule her for a biopsy visit. Update 12/07/2024: Patient presented today for left-sided FNA of a partially calcified (peripherally) thyroid nodule that would otherwise lie at the resection margin if we move forward with a right thyroid lobectomy with isthmusectomy. I suggested that I would feel better keeping this under surveilla nce if we able to get a benign result and would be happy her to proceed with a conservative surgery. Patient and her family saw [place] this recommendation and thus we proceeded with biopsy of the nodule in question during today's visit. This was technically challenging given the presence of calcifications. Complete details are given in the procedures section of this note. Update 01/13/2025: Patient presents today to discuss possible right thyroid lobectomy with isthmusectomy given large right thyroid nodule that is discrepant to much smaller left thyroid lobe. Suggestedthere was little utility in considering repeat biopsy of patient's partially calcified left thyroidnodule and further shared CT imaging of the cervical spine performed November 2021 that showed evidenceof this nodule at the time of that study measuring approximately what radiology measured during this year studies. I went on to describe my recommendation against trying to incorporate this nodule inthe resected surgical specimen on account of increased risk with little perceived benefit. I used a hand-drawn schematic to illustrate the procedure?specific risks including recurrent laryngeal nerveinjury and hypoparathyroidism. Patient and her daughter confirmed understanding of this information. I shared that I would plan for this to be an outpatient procedure but would not be able to excludethe possibility of an overnight observation. Patient names a number of upcoming family commitments and wishes to proceed operatively after these events. Plan: Right thyroid lobectomy with isthmusectomy using intraoperative nerve monitoring. Outpatient disposition expected. Anticipate scheduling a week of 02/21/2025 or 02/28/2025. I have examined the patient the following changes are noted: Since our last visit patient presentedto the emergency department following a traumatic ground- level fall 01/28/2025. She was diagnosed with a orbital fracture on the right. However, she did not require operative intervention from plasticsurgery and has been cleared by ophthalmology. She denies any visual changes today. She also deniesany other health changes. Operative expectations and postoperative instructions were both reviewed.Questions were taken from patient and her daughters. She confirms her readiness to proceed and consents were confirmed. Will now proceed to the operating room for right thyroid lobectomy with isthmuse ctomy using intraoperative nerve monitoring. 02/24/25715 Cosigner Signature (if applicable): CC: Dr. Shannan Pressley MD; Dr. Davie Mckeon MD~ Signed [facility]10-16-2025 [facility] Medical Records Department [address] [place] [address] History Physical Exam 02/24/25714 MR#: [id number] Acct: [id number] Name: ANNE DUARTE GENA Rep #: [id number] : 1945 79 From: Davie Mckeon MD PCP: Dr. Shannan Pressley MD Status:[facility] Location: [place] [address] History and Physical Date of Admission: 02/24/25 Date of Service: 01/13/25 MR#: [id number] Acct: [id number] Name: ANNE DUARTE GENA Rep #: [id number] : 1945 Provider: Dr. 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 Required: No Accompanied by: Daughter Is patient in pain?: No Allergies aspirin Allergy (Verified 01/13/25 09:30) Unknown codeine Allergy (Verified 01/13/25 09:30) Unknown Sulfa (Sulfonamide Antibiotics) Allergy (Verified 01/13/25 09:30) Unknown Medications ???Medication ???Instructions ???Recorded ???Confirmed ???Type Omeprazole [Prilosec] 40 mg PO DAILY 10/21/14 01/13/25 History cholecalciferol (vitamin D3) 25 25 mcg PO DAILY 07/27/21 01/13/25 History mcg (1,000 unit) capsule conjugated estrogens 0.625 mg/gram 1.25 mg vaginal QWEEK 07/27/21 01/13/25 History vaginal cream (Premarin) methotrexate sodium 2.5 mg tablet See Rx Instructions .Route .COMPLEX 07/27/21 01/13/25 History nortriptyline 25 mg capsule 25 mg PO QHS 07/27/21 01/13/25 History zinc 50 mg tablet 50 mg PO QODAY 07/27/21 01/13/25 History latanoprost 0.005 % eye drops 1 drp EACH EYE QHS 08/20/21 01/13/25 History loratadine 10 mg tablet 10 mg PO DAILY 08/20/21 01/13/25 History Lactobacillus acidophilus and 1 cap PO DAILY 10/31/22 01/13/25 History rhamnosus 15 billion cell capsule (Probiotic) losartan 50 mg tablet 50 mg PO QDAY 04/19/24 01/13/25 History Potassium 1 tab PO 3XW LOW K+ 07/01/24 01/13/25 History calcium carbonate (Calcium 600) 600 mg PO DAILY 07/01/24 01/13/25 History cranberry extract 500 mg capsule 500 mg PO QDAY 07/01/24 01/13/25 History docusate sodium 50 mg capsule 50 mg PO QDAY 07/01/24 01/13/25 History (Stool Softener) folic acid 1 mg tablet 2 mg PO BID 07/01/24 01/13/25 History tramadol 50 mg tablet 50 mg PO TID PRN 07/01/24 01/13/25 History balsalazide 750 mg capsule 750 mg PO BID #180 caps 09/17/24 01/13/25 Rx Have you fallen in the [...] 09/30/2024 and 11/08/2024. She presents today for left- sided thyroid nodule FNA. She presents today with her daughter and denies any health updates. T (more content not included)...[facility]10-16-2025 Consult note [facility] Medical Records Department [address] [place] [address] Pre-Anesthesia Evaluation 02/24/25 0652 MR#: [id number] Acct: [id number] Name: ANNE DUARTE GENA Rep #:[id number] : 1945 79 From: Son Fatima PCP: Dr. Shannan Pressley MD Status:REG SD C Y Race: C Location: [place] [address] ASA Classification* ASA Classification ASA Classification: 2 Assessment & Plan Anesthesia* Anesthesia Assessment Anesthesia Assessment: Discussed sedation and/or anesthesia options, risks, benefits, and alternatives with patient/parents/legal guardian/POA. Questions invited. The patient/parents/legal guardian/POA seems to understand and agrees to proceedwith anesthesia plan. Reviewed the physical assessment, medical history, allergy history and patient home medications list prior to surgery/procedure/anesthetic and documented any changes. Performed airway and anesthesia risk assessments. Anesthesia Type Anesthesia Type: General History Source History Obtained from:: Patient and Chart Anesthesia Focused Assessment* Temperature: 97.4 F Pulse Rate: 90 Blood Pressure: 131/97 Respiratory Rate: 16 Pulse Ox: 96 Oxygen Delivery Method: Room Air Airway Assessment Mouth opens: >3 cm Mallampati Score: II Teeth Condition: Missing Neck Range of motion (ROM): Full ROM Labs Anesthesia Preop lab: CBC WBC, (4.4-11.0) 3.9 K/mm3 L 01/31/25, 16:49 RBC, (4.2-5.4) 4.18 M/mm3 L 01/31/25, 16:49 Hgb, (12.0-15.0) 12.6 g/dL 01/31/25, : Hct, (37-47) 40.3 % 01/31/25, 16:49 Plt Count, (150-450) 273 K/mm3 01/31/25, 16:49 CHEMISTRY Potassium, (3.3-5.1) 4.1 mmol/L 01/31/25, 16:49 Sodium, (133-145) 138 mmol/L 01/31/25, 16:49 BUN, (4-19) 15 mg/dL 01/31/25, 16:49 Creatinine, (0.70-1.20) 0.71 mg/dL 01/31/25, 16:49 Glucose, (70-99) 85 mg/dL 01/31/25, 16:49 TSH, (0.300-4.200) 3.290 uIU/mL 07/06/24, 08:46 COAG PT, (11.7-14.9) 14.7 SECONDS 09/03/23, 22:07 Pre-Assessment Diagnosis/Proposed Procedure Planned Operative Procedure(s): RIGHT THYROID LOBECTOMY WITH ISTHMUS AND IONM Anesthesia History 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 When Was Last Pacemaker Check QUESTION #4 FULL TEXT: You/Your Family Experience fever (hyperthermia) with Anesthesia Last Oral Intake Last Oral intake: Last Oral Intake NPO since 21:00 02/24/25 06:26 Meds taken in AM with sips of water? 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 Female Yes 02/10/25 10:04 HX of Motion Sickness No 02/10/25 10:04 HX of N/V After Surgery Yes 02/10/25 10:04 Non-Smoker Yes 02/10/25 10:04 Duration of Surgery greater Yes 02/10/25 10:04 than 60 minutes Number of Risk Factors 4 02/10/25 10:04 PONV Score Severe Risk 02/10/25 10:04 Height & Weight Height & Weight: Anesthesia: Height & Weight Height 5 ft 1 in 02/24/25 06:26 Weight: 90.718 kg 02/24/25 06:26 Body Mass Index (BMI) 37.8 02/24/25 06:26 Respiratory Assessment Respiratory Assessment - posting machine operator: Respiratory 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 Has anyone observed you stop No 02/10/25 10:04 breathing during sleep? STOP Results Negative 02/10/25 10:04 QUESTION #5 FULL TEXT : Do you snore loudly (louder than talking or can be heard through closeddoors)? 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 Specify any problems Hx of Preganancy in last 3 No 02/10/25 10:04 Months Nurse Filling Out Transfusion DSCHRIBER 02/10/25 10:04 & Questions: Date: 02/10/25 02/10/25 10:04 Time: 10:06 02/10/25 10:04 Patient unable to answer at this time (ie. 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 Hx Now No 02/10/25 10:04 Gestational Age (in weeks): EDC: Hx Hx Para Hx Section SAB No 02/10/25 10:04 Active Medications Active Medications: Current Medications Generic Name Dose Route Start Last Admin Trade Name Freq PRN Reason Stop Dose Admin Lactated Ringer's 1,000 mls @ 15 mls/hr 02/24/25 06:00 02/24/25 06:00 IV 15 mls/hr .Q48H DIANNE Administration PFSH Medical History Ambulates with cane Back pain Injury of head and neck History of edema Fracture of right orbital floor Hypertension Goiter Thyroid nodule Mass of right side of neck Brain aneurysm Restless legs Rheumatoid arthritis History of rheumatic fever Wears glasses Post-menopausal Gastric reflux Non-smoker Shortness of breath on exertion History of pain when walking GERD (gastroesophageal reflux disease) Arthritis Rectal bleeding Home Medications ?Medication ?Instructions ?Recorded ?Last Taken ?Type Omeprazole [Prilosec] 40 mg PO DAILY 10/21/1402/09 05:00 History cholecalciferol (vitamin D3) 25 25 mcg PO DAILY 02/23/25 History mcg (1,000 unit) capsule methotrexate sodium 2.5 mg tablet 15 mg PO FR 07/27/21 02/18/25 History nortriptyline 25 mg capsule 25 mg PO QHS 07/27/2102/09 History zinc 50 mg tablet 50 mg PO QODAY 07/27/2102/09 History loratadine 10 mg tablet 10 mg PO DAILY 08/20/2102/09 History Lactobacillus acidophilus and 1 cap PO DAILY 10/31/22 02/23/25 History rhamnosus 15 billion cell capsule (Probiotic) losartan 50 mg tablet 50 mg PO QDAY 04/19/2402/24 05:00 History Potassium 1 tab PO MOWEFR LOW K+ 07/0102/23/25 History calcium carbonate (Calcium 600) 600 mg PO DAILY 02/23/25 History cranberry extract 500 mg capsule 500 mg PO QDAY 02/23/25 History docusate sodium 50 mg capsule 50 mg PO QDAY 07/01/24 1 History (Stool Softener) folic acid 1 mg tablet 2 mg PO DAILY 07/01/2402/23 History balsalazide 750 mg capsule 750 mg PO BID colitis #180 caps 09/17/24 02/23/25 Rx tramadol 50 mg tablet 50 mg PO Q8H PRN pain 5 days #15 01/28/25 02/23/25 Rx tabs ketoconazole 2 % topical cream 1 applic topical BID [place] N SKIN 02/01/25 Unknown History timolol maleate 0.5 % eye drops 1 drp ophthalmic (eye) BID 02/10/25 02/23/25 History Allergy/AdvReac Type Severity Reaction Status Date / Time aspirin Allergy Hives Verified 02/24/25 06:18 codeine Allergy Hives Verified 02/24/25 06:18 Sulfa (Sulfonamide Allergy Hives Verified 02/24/25 06:18 Antibiotics) Family History Father Cancer bladder Mother Heart disease Surgical History Hx of colonoscopy Hx of brain surgery Hx of total hip arthroplasty Hx of bladder repair surgery Hx of breast biopsy Hx of arthroscopic knee surgery Hx of arthroscopy of shoulder Hx of appendectomy Hx of hysterectomy Social History Smoking Status: Never smoker alcohol intake: never substance use type: does not use what type of physical activity do you participate in: none additional social history: pt denies vaping, denies edibles, denies marijuana use, denies aspirin and ibuprofen use, denies family history of blood clots/disorders Review of Systems (Anesthesia) ROS Narrative System reviewed and no additional complaints, except as documented. 02/24/25 0658 MD> Date _ Son Black MD [facility] Signature: Date CC: ~ Signed [facility]09-30-2025 Progress [facility] Plastic & Reconstructive Surgery [address], [address] [place] [address] OFFICE VISIT Date of Service: 02/08/25 MR#: [id number] Acct: [id number] Name: ANNE DUARTE Rep #: [id number] : 1945 Provider: Dr. Lorne Jackson MD Age/Sex: 79/F Location: [place] [address] Status: Signed Intake Vital Signs 02/01/25 13:37 Height 5 ft 1 in Weight: 195 lb BMI 36.8 Comment pt ambulates with cane Intake Visit Reasons: 1 week follow up Chief Complaint: 1 week follow up Is patient in pain?: No Allergies aspirin Allergy (Verified 02/08/25 15:11) Hives codeine Allergy (Verified 02/08/25 15:11) Hives Sulfa (Sulfonamide Antibiotics) Allergy (Verified 02/08/25 15:11) Hives Medications ?Medication ?Instructions ?Recorded ?Confirmed ?Type Omeprazole [Prilosec] 40 mg PO DAILY 10/21/1401/12 History cholecalciferol (vitamin D3) 25 25 mcg PO DAILY 02/08/25 History mcg (1,000 unit) capsule conjugated estrogens 0.625 mg/gram 1.25 mg vaginal QWE EK 07/27/21 02/08/25 History vaginal cream (Premarin) methotrexate sodium 2.5 mg tablet See Rx Instructions .Route .COMPLEX 07/27/21 02/08/25 History nortriptyline 25 mg capsule 25 mg PO QHS 07/27/2101/12 History zinc 50 mg tablet 50 mg PO QODAY 07/27/2101/12 History latanoprost 0.005 % eye drops 1 drp EACH EYE QHS 08/2002/08/25 History loratadine 10 mg tablet 10 mg PO DAILY 08/20/2101/12 History Lactobacillus acidophilus and 1 cap PO DAILY 10/31/22 02/08/25 History rhamnosus 15 billion cell capsule (Probiotic) losartan 50 mg tablet 50 mg PO QDAY 04/19/2402/08 History Potassium 1 tab PO 3XW LOW K+ 07/01/24 02/08/25 History calcium carbonate (Calcium 600) 600 mg PO DAILY 02/08/25 History cranberry extract 500 mg capsule 500 mg PO QDAY 02/08/25 History docusate sodium 50 mg capsule 50 mg PO QDAY 07/01/24 0 02/08/25 History (Stool Softener) folic acid 1 mg tablet 2 mg PO BID 07/01/24 5 History tramadol 50 mg tablet 50 mg PO TID PRN 07/01/24 History balsalazide 750 mg capsule 750 mg PO BID #180 caps 02/0302/08/25 Rx tramadol 50 mg tablet 50 mg PO Q8H PRN pain 5 days #15 01/28/25 02/08/25 Rx tabs ketoconazole 2 % topical cream applic topical BID 01/1102/08/25 History Have you fallen in the past year?: Yes PFSH Medical History Fracture of right orbital floor Hypertension Thyroid nodule Goiter Fatigue Mass of right [...] physical activity do you participate in: none additional social history: pt denies vaping, denies edibles, denies marijuana use, denies aspirin and ibuprofen use, denies family history of blood clots/disorders HPI 1 week follow up Details: HPI 01 FEB 2025: Patient is a 79-year-old female with history of ulcerative colitis, GERD, ruptured cerebral aneurysm status post coiling and arthritis presenting for evaluation after mechanical fall while gardening on 01/28. She hit her head and the top of her glasses broke but she denied loss of consciousness. She's not on any blood thinners. She underwent trauma work up at the ED and was found to have right orbital floor fracture and her right forehead laceration was repaired. Brain CT and cervical spine CT was negative for acute injuries. She presents today with her daughter. She saw her eye doctor yesterday and states everything was ok. She notes double vision when looking at the TV and her glassess is still broken. She does not havedouble vision currently during her visit. She does have follow up with her PCP for suture removal this Friday. She denies facial numbness, tingling, nausea, vomiting. Daughter notes since her aneurysm years ago she's lost peripheral vision on both sides right worse than left. CURRENT ENCOUNTER, 08 Feb 2025: Patient doing well overall but has noticed some right cheek and right upper maxillary teeth numbness. She is not having any double vision. Exam Details Alert and oriented in no acute distress. Walking cane in room Ecchymosis has dissipated Gaze is midline and conjugate, EOMI. No hypoglobus and enophthalmos. No nystagmus noted. Sensation to light touch of the face is intact except for numbness in the V2 distribution on the right that is more pronounced today Right forehead sutures have been removed Coding Level of Care Code Off vis,est,level 2 Diagnoses Fracture of right orbital floor S02.31XA Assessment and Plan (No Qualifiers) Assessment and Plan (1) Fracture of right orbital floor: Status: Acute Plan: Discussed that V2 distribution neuropraxia should improve over time No indication for operative intervention of the right orbital floor fracture at this time as she does not have any enophthalmos or hypoglobus and is not having any double vision Plan to monitor with 1 month follow-up Clinical Quality Measures Falls Risk Screening/Assistive Devices Have you fallen in the past year?: Yes 02/08/25 1623 MD> Date _ Sorin Jackson MD Cosigner Signature: Date (if applicable) CC: ~ [facility]09-30-2025 Progress note Author Sorin Jackson [facility] Note Date/Time February 08, 2025 3:17pm [facility] Plastic & Reconstructive Surgery [address] [place] [address], [address] [place] [address] OFFICE VISIT Date of Service: 02/08/25 MR#: [id number] Acct: [id number] Name: ANNE DUARTE Rep #: [id number] : 1945 Provider: Dr. Lorne Jackson MD Age/Sex: 79/F Location: [place] [address] Status: Signed Intake Vital Signs 02/01/25 13:37 Height 5 ft 1 in Weight: 195 lb BMI 36.8 Comment pt ambulates with cane Intake Visit Reasons: 1 week follow up Chief Complaint: 1 week follow up Is patient in pain?: No Allergies aspirin Allergy (Verified 02/08/25 15:11) Hives codeine Allergy (Verified 02/08/25 15:11) Hives Sulfa (Sulfonamide Antibiotics) Allergy (Verified 02/08/25 15:11) Hives Medications ?Medication ?Instructions ?Recorded ?Confirmed ?Type Omeprazole [Prilosec] 40 mg PO DAILY 10/21/1401/12 History cholecalciferol (vitamin D3) 25 25 mcg PO DAILY 02/08/25 History mcg (1,000 unit) capsule conjugated estrogens 0.625 mg/gram 1.25 mg vaginal QWE EK 07/27/21 02/08/25 History vaginal cream (Premarin) methotrexate sodium 2.5 mg tablet See Rx Instructions .Route .COMPLEX 07/27/21 02/08/25 History nortriptyline 25 mg capsule 25 mg PO QHS 07/27/2101/12 History zinc 50 mg tablet 50 mg PO QODAY 07/27/2101/12 History latanoprost 0.005 % eye drops 1 drp EACH EYE QHS 08/2002/08/25 History loratadine 10 mg tablet 10 mg PO DAILY 08/20/2101/12 History Lactobacillus acidophilus and 1 cap PO DAILY 10/31/22 02/08/25 History rhamnosus 15 billion cell capsule (Probiotic) losartan 50 mg tablet 50 mg PO QDAY 04/19/2402/08 History Potassium 1 tab PO 3XW LOW K+ 07/01/24 02/08/25 History calcium carbonate (Calcium 600) 600 mg PO DAILY 02/08/25 History cranberry extract 500 mg capsule 500 mg PO QDAY 02/08/25 History docusate sodium 50 mg capsule 50 mg PO QDAY 07/01/24 0 02/08/25 History (Stool Softener) folic acid 1 mg tablet 2 mg PO BID 07/01/24 5 History tramadol 50 mg tablet 50 mg PO TID PRN 07/01/24 History balsalazide 750 mg capsule 750 mg PO BID #180 caps 02/0302/08/25 Rx tramadol 50 mg tablet 50 mg PO Q8H PRN pain 5 days #15 01/28/25 02/08/25 Rx tabs ketoconazole 2 % topical cream applic topical BID 01/1102/08/25 History Have you fallen in the past year?: Yes PFSH Medical History Fracture of right orbital floor Hypertension Thyroid nodule Goiter Fatigue Mass of right [...] physical activity do you participate in: none additional social history: pt denies vaping, denies edibles, denies marijuana use, denies aspirin and ibuprofen use, denies family history of blood clots/disorders HPI 1 week follow up Details: HPI 01 FEB 2025: Patient is a 79-year-old female with history of ulcerative colitis, GERD, ruptured cerebral aneurysm status post coiling and arthritis presenting for evaluation after mechanical fall while gardening on 01/28. She hit her head and the top of her glasses broke but she denied loss of consciousness. She's not on any blood thinners. She underwent trauma work up at the ED and was found to have right orbital floor fracture and her right forehead laceration was repaired. Brain CT and cervical spine CT was negative for acute injuries. She presents today with her daughter. She saw her eye doctor yesterday and states everything was ok. She notes double vision when looking at the TV and her glassess is still broken. She does not have double vision currently during her visit. She does have follow up with her PCP for suture removal this Friday. She denies facial numbness, tingling, nausea, vomiting. Daughter notes since her aneurysm years ago she's lost peripheral vision on both sides right worse than left. CURRENT ENCOUNTER, 08 Feb 2025: Patient doing well overall but has noticed some right cheek and right upper maxillary teeth numbness. She is not having any double vision. Exam Details Alert and oriented in no acute distress. Walking cane in room Ecchymosis has dissipated Gaze is midline and conjugate, EOMI. No hypoglobus and enophthalmos. No nystagmus noted. Sensation to light touch of the face is intact except for numbness in the V2 distribution on the right that is more pronounced today Right forehead sutures have been removed Coding Level of Care Code Off vis,est,level 2 Diagnoses Fracture of right orbital floor S02.31XA Assessment and Plan (No Qualifiers) Assessment and Plan (1) Fracture of right orbital floor: Status: Acute Plan: Discussed that V2 distribution neuropraxia should improve over time No indication for operative intervention of the right orbital floor fracture at this time as she does not have any enophthalmos or hypoglobus and is not having any double vision Plan to monitor with 1 month follow-up Clinical Quality Measures Falls Risk Screening/Assistive Devices Have you fallen in the past year?: Yes 02/08/25 1243 <Electronically signed by Sorin Jackson MD> Date _ Sorin Jackson MD Cosign Signature: Date (if applicable) CC: ~ [facility] Work Phone: [phone] [facility] [address], [address] [place] [address] OFFICE VISIT Date of Service: 02/01/25 MR#: [id number] Acct: [id number] Name: ANNE DUARTE GENA Rep #: [id number] : 1945 Provider: Dr. Lorne Jackson MD Age/Sex: 79/F Location: [facility] Status: Signed Pt seen & evaluated w/ALTON. I personally interviewed & exam the pt. I was involved in all aspects of pt's orders, interpretation of results & treatment I reviewed the CT with the patient. 1 x 1.5 cm gap in orbital floor Assymptomatic on exam (no double vision, no enophthalmos or hypoglobus). Globe cleared by ophthalmology. Plan to follow closely. Discussed risks, benefits, and alternatives to non- operative management. She agreed to plan for monitoring (non-operative) at this time. f/u in 1 week Intake Vital Signs 01/28/25 17:22 02/01/25 13:37 Height 5 ft 5 ft 1 in Weight: 195 lb BMI 36.8 Comment pt ambulates with cane Intake Visit Reasons: ED FU Chief Complaint: ED follow up-fall on friday Accompanied by: Daughter Is patient in pain?: No Allergies aspirin Allergy (Verified 02/01/25 13:39) Hives codeine Allergy (Verified 02/01/25 13:39) Hives Sulfa (Sulfonamide Antibiotics) Allergy (Verified 02/01/25 13:39) Hives Medications ?Medication ?Instructions ?Recorded ?Confirmed ?Type Omeprazole [Prilosec] 40 mg PO DAILY 10/21/1401/11 History cholecalciferol (vitamin D3) 25 25 mcg PO DAILY 02/01/25 History mcg (1,000 unit) capsule conjugated estrogens 0.625 mg/gram 1.25 mg vaginal QWE EK 07/27/21 02/01/25 History vaginal cream (Premarin) methotrexate sodium 2.5 mg tablet See Rx Instructions .Route .COMPLEX 07/27/21 02/01/25 History nortriptyline 25 mg capsule 25 mg PO QHS 07/27/2101/11 History zinc 50 mg tablet 50 mg PO QODAY 07/27/2101/11 History latanoprost 0.005 % eye drops 1 drp EACH EYE QHS 08/2002/01/25 History loratadine 10 mg tablet 10 mg PO DAILY 08/20/2101/11 History Lactobacillus acidophilus and 1 cap PO DAILY 10/31/22 02/01/25 History rhamnosus 15 billion cell capsule (Probiotic) losartan 50 mg tablet 50 mg PO QDAY 04/19/2402/01 History Potassium 1 tab PO 3XW LOW K+ 07/01/24 02/01/25 History calcium carbonate (Calcium 600) 600 mg PO DAILY 02/01/25 History cranberry extract 500 mg capsule 500 mg PO QDAY 02/01/25 History docusate sodium 50 mg capsule 50 mg PO QDAY 07/01/24 0 02/01/25 History (Stool Softener) folic acid 1 mg tablet 2 mg PO BID 07/01/24 5 History tramadol 50 mg tablet 50 mg PO TID PRN 07/01/24 History balsalazide 750 mg capsule 750 mg PO BID #180 caps 02/0302/01/25 Rx tramadol 50 mg tablet 50 mg PO Q8H PRN pain 5 days #15 01/28/25 02/01/25 Rx tabs ketoconazole 2 % topical cream applic topical BID 01/1102/01/25 History Have you fallen in the past year?: Yes (fell on Friday, hit head and eye, sutures) PFSH Medical History (Updated 02/01/25 @ 14:28 by JENNIE Ramos) Fracture of right orbital floor Hypertension Thyroid nodule Goiter Fatigue Mass of right [...] Cancer bladder Mother Heart disease Social History (Updated 02/01/25 @ 13:37 by Millicent Hammonds) Smoking Status: Never smoker alcohol intake: never substance use type: does not use what type of physical activity do you participate in: none additional social history: pt denies vaping, denies edibles, denies marijuana use, denies aspirin and ibuprofen use, denies family history of blood clots/disorders HPI ED FU Details: Patient is a 79-year-old female with history of ulcerative colitis, GERD, ruptured cerebral aneurysm status post coiling and arthritis presenting for evaluation after mechanical fall while gardening on 01/28. She hit her head and the top of her glasses broke but she denied loss of consciousness. She's not on any blood thinners. She underwent trauma work up at the ED and was found to have right orbital floor fracture and her right forehead laceration was repaired. Brain CT and cervical spine CT was negative for acute injuries. She presents today with her daughter. She saw her eye doctor yesterday and states everything was ok. She notes double vision when looking at the TV and her glassess is still broken. She does not havedouble vision currently during her visit. She does have follow up with her PCP for suture removal this Friday. She denies facial numbness, tingling, nausea, vomiting. Daughter notes since her aneurysm years ago she's lost peripheral vision on both sides right worse than left. ROS Details General: Denies fever, chills HEENT: Denies headaches, sore throat Cardio: Denies chest pain, leg edema Pulmonary: Denies shortness of pain, cough, wheezing GI: Denies nausea, vomiting, diarrhea General General: Yes good health and fatigue; No fever(s) or weight loss HENMT HENMT: No rhinitis, sore throat/mouth sore, nasal congestion, contacts or glaucoma Endo Endocrine: No thyroid disease, polydipsia, heat intolerance, cold intolerance, hepatitis or excessive urine Skin Skin: Yes Bleeding and bruising; No changing moles or suspicious lesion Musc Musculoskeletal: No joint pain, joint stiffness, muscle weakness, back pain, osteoarthritis or Muscle aches/ myalgia Neuro Neurological: Yes headache(s), No lightheadedness and No numbness Cardio Cardiovascular: Yes fatigue; No chest pain, pacemaker or shortness of breat with exertion Psych Psychiatric: No depression, claustrophobia or anxiety Resp Respiratory: No spitting up, shortness of breath, sleep apnea, asthma, emphysema, TB, Cough or Smoker Gastro Gastrointestinal: No diarrhea, constipation, blood in stool, nausea, vomiting or abdominal bloating Vance Hematologic: No anemia, No bleeding and No abnormal bleeding Genitourinary: No urinary frequency, blood in urine or incontinence Exam Details Alert and oriented in no acute distress. Walking cane in room Ecchymosis noted on right forehead and cheek. Gaze is midline and conjugate, EOMI. No hypoglobus and enophthalmos. No nystagmus noted. Sensation to light touch of the face is intact Right forehead sutures are clean, dry, intact. Not infected Coding Level of Care Code Off vis,new,level 3 Diagnoses Fracture of right orbital floor S02.31XA Complex laceration of right eyebrow S01.111A Assessment and Plan (No Qualifiers) Assessment and Plan (1) Fracture of right orbital floor: Status: Acute (2) Complex laceration of right eyebrow: Status: Acute Plan Dr. Jackson and I evaluated the patient together. CT sinus/face were reviewed in detail together. Given patient has no double vision and does not demonstrate hypoglobus and enophthalmos on exam surgery is not indicated at this time as risks outweight benefits. We will follow up in 1 week, then again in 6 weeks if she continues to do well. Clinical Quality Measures Falls Risk Screening/Assistive Devices Does patient use assistive devices: cane Have you fallen in the past year?: Yes (fell on Friday, hit head and eye, sutures) 02/01/25 1615 MD> Date _ Sorin Jackson MD 02/01/25 1430 Cosigner Signature: Date (if applicable) James Escobedo CC: ~ [facility]09-19-2025 Discharge summary [facility] Medical Records Department [address] [place] [address] Emergency Department Summary 01/28/25 MR#: [id number] Acct: [id number] Name: ANNE DUARTE GENA Rep #:[id number] : 1945 79 From: Elma Kunz PCP: Dr. Shannan Pressley MD Status:REG ER Location: ED HPI History of Present Illness Chief Complaint: Fall Informant: patient Narrative Narrative: Patient is a 79-year-old female with history of ulcerative colitis, GERD, ruptured cerebral aneurysm status post coiling and arthritis presenting for evaluation after mechanical fall. Patient states he tripped on some uneven stones and fell. She tried to catch herself but did hit her head. She is not sure if she hit her head on the ground or her glasses hit her head. She sustained a laceration above her right eyebrow. Denies any associated loss of conscious. On any blood thinners. Did also hit her left knee mildly. Is unsure when her last tetanus was. Denies any associate numbness or tingling. Is otherwise been in her normal state of health. No other complaints or concerns at this time. Tetanus Immunization: Unknown [facility] Medical History Thyroid nodule Goiter Fatigue Mass of right side of neck Brain aneurysm Rash Restless legs Rheumatoid arthritis History of rheumatic fever Wears glasses Post-menopausal Back pain Migraine headache Gastric reflux Non-smoker Shortness of breath on exertion Leg cramps History of pain when walking GERD (gastroesophageal reflux disease) Arthritis Rectal bleeding Home Medications ?Medication ?Instructions ?Recorded ?Last Taken ?Type Omeprazole [Prilosec] 40 mg PO DAILY 10/21/14 Unkn own History cholecalciferol (vitamin D3) 25 25 mcg PO DAILY Unknown History mcg (1,000 unit) capsule conjugated estrogens 0.625 mg/gram 1.25 mg vaginal QWE EK 07/27/21 Unknown History vaginal cream (Premarin) methotrexate sodium 2.5 mg tablet See Rx Instructions .Route .COMPLEX 07/27/21 Unknown History nortriptyline 25 mg capsule 25 mg PO QHS 07/27/21 Unkn own History zinc 50 mg tablet 50 mg PO QODAY 07/27/21 Unkn own History latanoprost 0.005 % eye drops 1 drp EACH EYE QHS 08/20 Unknown History loratadine 10 mg tablet 10 mg PO DAILY 08/20/21 Unkn own History Lactobacillus acidophilus and 1 cap PO DAILY 10/31/22 Unknown History rhamnosus 15 billion cell capsule (Probiotic) losartan 50 mg tablet 50 mg PO QDAY 04/19/24 Unkno wn History Potassium 1 tab PO 3XW LOW K+ 07/01/24 Unknown History calcium carbonate (Calcium 600) 600 mg PO DAILY Unknown History cranberry extract 500 mg capsule 500 mg PO QDAY Unknown History docusate sodium 50 mg capsule 50 mg PO QDAY 07/01/24 U nknown History (Stool Softener) folic acid 1 mg tablet 2 mg PO BID 07/01/24 Unknown History tramadol 50 mg tablet 50 mg PO TID PRN 07/01/24 Un known History balsalazide 750 mg capsule 750 mg PO BID #180 caps 02/03 Unknown Rx tramadol 50 mg tablet 50 mg PO Q8H PRN pain 5 days #15 01/28/25 Unknown Rx tabs Allergy/AdvReac Type Severity Reaction Status Date / Time aspirin Allergy Unknown Verified 01/28/25 17:22 codeine Allergy Unknown Verified 01/28/25 17:22 Sulfa (Sulfonamide Allergy Unknown Verified 01/28/25 17:22 Antibiotics) Family History Father Cancer bladder Mother Heart disease Surgical History Hx of brain surgery Hx of total hip arthroplasty Hx of bladder repair surgery Hx of breast biopsy Hx of arthroscopic knee surgery Hx of arthroscopy of shoulder Hx of appendectomy Hx of hysterectomy Social History Smoking Status: Never smoker alcohol intake: never substance use type: does not use what type of physical activity do you participate in: none ROS ROS ED Constitutional Constitutional ED: Denies chills or fever(s) Eyes Eyes: Denies change in vision ENT ENT ED: Denies rhinorrhea or sore throat Cardiovascular Cardiovascular: Denies chest pain Respiratory/Chest Respiratory/Chest: Denies cough Gastrointestinal Gastrointestinal: Denies nausea or vomiting Musculoskeletal Musculoskeletal: Denies arthralgias or myalgias Integumentary Reports other Details: Laceration to the right eyebrow Neurologic Neurologic: Reports headache(s); Denies paresthesias or weakness Hematologic/Lymphatic Hematologic/Lymphatic: Denies easy bleeding or easy bruising EXAM Physical Exam Const Vital Signs: 01/28/25 17:22 01/28/25 17:57 01/28/25 18:00 Temperature 98.1 F Temperature Source Oral Pulse Rate 89 89 Respiratory Rate 18 16 Respiratory Effort Normal Respiratory Depth Normal Respiratory Pattern Normal Blood Pressure 173/126 H 176/116 H Blood Pressure Mean 141 136 Pulse Ox 96 97 Oxygen Delivery Method Room Air Room Air Room Air 01/28/25 20:19 Temperature Temperature Source Pulse Rate 94 Respiratory Rate 15 Respiratory Effort Respiratory Depth Respiratory Pattern Blood Pressure 170/101 H Blood Pressure Mean 124 Pulse Ox 96 Oxygen Delivery Method Room Air Positive well nourished and well developed General Appearance ED: well developed and NAD HEENT Reports TM's clear HEENT Narrative: No signs of basilar skull fracture. 4 cm full-thickness laceration over the right eyebrow. No tenderness over the orbital floor. No trismus. No epistaxis present. No nasal septal hematoma present. Tympanic Membrane ED: Yes TM's clear Eyes PERRL and EOMs intact bilaterally Neck full ROM General: Negative for tenderness Chest Wall inspection of chest normal and palpation of chest normal Resp normal respiratory effort and clear to auscultation bilaterally Cardio regular rhythm Rate: regular rate GI normal to inspection, nondistended, normoactive bowel sounds Extremity normal to inspection and full ROM Extremity Narrative: Normal extensor mechanism of the lower extremities bilaterally. No obvious deformity of the extremities. Mild tenderness palpation of the left anterior knee with associated overlying erythema consistent with an abrasion. No joint effusion present. General Extremety ED: Negative for deformity General Extremity: Negative for deformity Neuro oriented x3, CN's II-XII intact bilaterally, moves all extremities, no focal motor deficits and no sensory deficits noted Stephenson Coma Scale: document GCS findings Spontaneous Obeys Commands Oriented 15 Psych mental status grossly normal and thought process normal Skin Skin Narrative: 3 cm full-thickness laceration over the right eyebrow. PROC Procedures Lacerations Right eyebrow: Length: 1.57 in Depth: Sub Q Shape: Linear Prep: Sterile Conditions and Chlorhexadine Laceration repair: Lidocaine with epi, Local, Skin sutures (7) and Subcutaneous sutures (2) Irrigated (ml): 200 Number of Sutures/Davis: 9 Suture Information: Vicryl (4-0 subcutaneous), Ethilon (5-0 skin) and Simple Comment: Tolerated procedure well. Good approximation. No immediate complications MDM MDM MDM Narrative Medical decision making narrative: Patient presented for mechanical fall with subsequent head injury. Differential includes intracranial hemorrhage, skull fracture, facial fracture, cervical spine fracture. Physical exam not consistent with extraocular muscle entrapment. She has a normal neurologic exam. Laceration repair performed, see procedure note. Tetanus is updated. Patient given Tylenol for headache with improvement. CT imaging does show an acute displaced right orbital floor blowout fracture with no extraocular muscle involvement. No intracranial process or cervical spine fractures. Case discussed with ophthalmology on-call, Dr. Tilley, he states the patient is otherwise stable can follow-up outpatient with plastics and them. Counseled on avoiding blowing her nose or sneezing.I states does not need antibiotics. Patient given outpatient referral. She is comfortable with thisplan of care. She does receive her regular prescription for tramadol which she only takes once a day. Canceled that she should take it 3 times a day as needed for pain will be given a refill. She does not want anything stronger for pain. Can also take Tylenol. Given return precautions. Discharged home in stable condition. Ambulated with a steady gait in the emergency room. Radiography Diagnostic Testing: Clinical Impression(s) from Imaging Studies Brain CT 01/28/25 19:18 IMPRESSION: 1. Acute displaced right orbital floor blow-out fracture, as described above. 2. No acute intracranial abnormality. 3. Moderate chronic small-vessel ischemic changes with chronic encephalomalacia/gliosis in the anteroinferior right frontal lobe. 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 4. No acute cervical spine fracture or malalignment. Mild spondylotic changes. 5. 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 Reading Location: [facility] Cervical Spine CT 01/28/25 19:18 IMPRESSION: 1. Acute displaced right orbital floor blow-out fracture, as described above. 2. No acute intracranial abnormality. 3. Moderate chronic small-vessel ischemic changes with chronic encephalomalacia/gliosis in the anteroinferior right frontal lobe. 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 4. No acute cervical spine fracture or malalignment. Mild spondylotic changes. 5. 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 Reading Location: [facility] Facial/Sinus 01/28/25 19:18 IMPRESSION: 1. Acute displaced right orbital floor blow-out fracture, as described above. 2. No acute intracranial abnormality. 3. Moderate chronic small-vessel ischemic changes with chronic encephalomalacia/gliosis in the anteroinferior right frontal lobe. 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 4. No acute cervical spine fracture or malalignment. Mild spondylotic changes. 5. 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 Reading Location: [facility] Discharge Plan Triage Chief Complaint: Fall ED Provider: Elma Davey Dx/Rx/DC Orders Clinical Impression: Complex laceration of right eyebrow, Closed blow-out fracture of right orbital floor, Contusion of knee, Closed head injury Instructions: ED Facial Fracture, ED Head Injury (Adult), ED FACIAL LACERATION Suture Tape Prescriptions: New tramadol 50 mg tablet 50 mg PO Q8H PRN (Reason: pain) 5 Days Qty: 15 0RF No Action zinc 50 mg tablet 50 mg PO QODAY Premarin 0.625 mg/gram cream 1.25 mg vaginal QWEEK Rx Instructions: off 5 days; repeat cycle cholecalciferol (vitamin D3) 25 mcg (1,000 unit) capsule 25 mcg PO DAILY nortriptyline 25 mg capsule 25 mg PO QHS Potassium 99 mg tablet 1 tab PO 3XW losartan 50 mg tablet 50 mg PO QDAY tramadol 50 mg tablet 50 mg PO TID PRN cranberry extract 500 mg capsule 500 mg PO QDAY Rx Instructions: administer with meals Stool Softener 50 mg capsule 50 mg PO QDAY Omeprazole [Prilosec] 40 MG capsule 40 mg PO DAILY methotrexate sodium 2.5 mg tablet See Rx Instructions .ROUTE .COMPLEX Rx Instructions: 6 tabs PO QWEEK-TAKES ON FRIDAY folic acid 1 mg tablet 2 mg PO BID latanoprost 0.005 % drops 1 drp EACH EYE QHS loratadine 10 mg Tablet 10 mg PO DAILY calcium carbonate [Calcium 600] 600 mg calcium (1,500 mg) tablet 600 mg PO DAILY Probiotic 15 billion cell Capsule 1 cap PO DAILY balsalazide 750 mg capsule 750 mg PO BID Qty: 180 3RF Primary Care Provider: Shannan Pressley Referrals: Shannan Pressley MD [Primary Care Provider, Family Practice] Fidel Tilley MD [Med Staff - Active Staff, Surgery] Sorin Jackson MD [Med Staff - Active Staff, Plastic Surgery] Activity Restrictions/Additional Instructions: Your sutures need to come out in 5 to 7 days. You have a fracture to your rightorbital floor (belowyour eye). Please follow-up with both design engineering specialist and plastic surgery for this. Take tramadol asneeded for pain up to 3 times a day. You been given an additional week supply. Please let your prescribing doctor know that you received extra to not violate any pain contract. You may also take Tylenol as needed for pain. Try not to blow your nose or sneeze forcefully until cleared by the eye doctor. Print Language: [place] Disposition Disposition: Home, Self Care What to do if you have Problems For any increased pain, shortness of breath, bleeding, nausea or vomiting, chestpain, or any unexpected problems, contact your Primary Care Provider. Call [facility] ([phone]) or report tothe closest Emergency Room. Call 911 if necessary. 01/28/252205 Cosigner Signature (if applicable): CC: Dr. Shannan Pressley MD ~ Signed [facility]09-19-2025 Radiology Diagnostic study note [facility] Imaging Services [address], [place] [id number] Brain/Head without Contrast MR#: [id number] Acct: [id number] Name: ANNE DUARTE GENA Rep #: [id number] : 1945 F 79 From: [place] MD PCP: Dr. Shannan Pressley MD Status: REG ER Study:Brain/Head without Contrast Date of Exa m: 01/28/25 Exam# [id number] Ordering Dr: Ricardo Davey DO EXAM: CT BRAIN/HEAD; SINUS/FACIAL BONE; SPINE CERVICAL WITHOUT CONTRAST CLINICAL HISTORY: TRAUMA, fall COMPARISON: CT neck 10/27/2024. CT head 09/03/2023. TECHNIQUE: Noncontrast CT images of the head, maxillofacial structures, and cervical spine with multiplanar reconstructions. Dose reduction techniques were used including intermediate exposure control (AEC),iterative reconstruction technique, and/or mA and/or KV dose adjustments based on patient's size. FINDINGS: HEAD/FACE: No acute intracranial hemorrhage, extra-axial collection, mass effect or evidence of acute infarct. Mild generalized brain parenchymal volume loss, and moderate chronic small- vessel ischemic changes in the supratentorial white matter. Chronic encephalomalacia/gliosis in the anterior inferior right frontallobe. 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 Postoperative changes of prior right frontal craniotomy and bifrontal yuri holes, with metallic fixation to the lateral right orbital rim. No acute skull base or calvarial fracture. No mastoid effusions. Acute displaced right orbital floor blow-out fracture. Inferior herniation of right extraconal intraorbital fat, but no evidence for herniation or impingement of the extraocular musculature. Small amount of amorphous hemorrhage along the right orbital floor, no intraorbital emphysema. Hemorrhage within the right maxillary sinus. No additional acute maxillofacial fracture is seen. CERVICAL SPINE: No acute fracture or subluxation. Straightening of the cervical lordosis is likely positional and/or degenerative in nature. Multilevel spondylotic changes with varying degrees of disc space narrowing, small Schmorl's nodes and/or subchondral cysts, anterior osteophytosis, uncovertebral spurring and hypertrophic facet arthropathy. No prevertebral soft tissue swelling. Mild atherosclerotic vascular calcifications. Markedly enlarged heterogeneous goitrous thyroid involvingthe right thyroid lobe and isthmus with retrosternal extension, with associated mild leftward deviation of the tracheal airway. CT/Brain/Head without Contrast IMPRESSION: 1. Acute displaced right orbital floor blow-out fracture, as described above. 2. No acute intracranial abnormality. 3. Moderate chronic small-vessel ischemic changes with chronic encephalomalacia/gliosis in the anteroinferior right frontal lobe. 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 4. No acute cervical spine fracture or malalignment. Mild spondylotic changes. 5. 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 Reading Location: [facility] CC: Dr. Shannan Pressley MD; Dr. Elma Davey DO ~ Die Trouble Shooter: Signed [facility]09-19-2025 Radiology Diagnostic study note [facility] Imaging Services [address] [place], [place] [id number] Spine Cervical without Contras MR#: [id number] Acct: [id number] Name: ANNE DUARTE GENA Rep #: [id number] : 1945 F 79 From: [facility] hood High MD PCP: Dr. Shannan Pressley MD Status: REG ER Study:Spine Cervical without Contras Date of Exam: 01/28/25 Exam# [id number] Ordering Dr: Ricardo Davey DO EXAM: CT BRAIN/HEAD; SINUS/FACIAL BONE; SPINE CERVICAL WITHOUT CONTRAST CLINICAL HISTORY: TRAUMA, fall COMPARISON: CT neck 10/27/2024. CT head 09/03/2023. TECHNIQUE: Noncontrast CT images of the head, maxillofacial structures, and cervical spine with multiplanar reconstructions. Dose reduction techniques were used including intermediate exposure control (AEC),iterative reconstruction technique, and/or mA and/or KV dose adjustments based on patient's size. FINDINGS: HEAD/FACE: No acute intracranial hemorrhage, extra-axial collection, mass effect or evidence of acute infarct. Mild generalized brain parenchymal volume loss, and moderate chronic small- vessel ischemic changes in the supratentorial white matter. Chronic encephalomalacia/gliosis in the anterior inferior right frontallobe. 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 Postoperative changes of prior right frontal craniotomy and bifrontal yuri holes, with metallic fixation to the lateral right orbital rim. No acute skull base or calvarial fracture. No mastoid effusions. Acute displaced right orbital floor blow-out fracture. Inferior herniation of right extraconal intraorbital fat, but no evidence for herniation or impingement of the extraocular musculature. Small amount of amorphous hemorrhage along the right orbital floor, no intraorbital emphysema. Hemorrhage within the right maxillary sinus. No additional acute maxillofacial fracture is seen. CERVICAL SPINE: No acute fracture or subluxation. Straightening of the cervical lordosis is likely positional and/or degenerative in nature. Multilevel spondylotic changes with varying degrees of disc space narrowing, small Schmorl's nodes and/or subchondral cysts, anterior osteophytosis, uncovertebral spurring and hypertrophic facet arthropathy. No prevertebral soft tissue swelling. Mild atherosclerotic vascular calcifications. Markedly enlarged heterogeneous goitrous thyroid involvingthe right thyroid lobe and isthmus with retrosternal extension, with associated mild leftward deviation of the tracheal airway. CT/Spine Cervical without Contras IMPRESSION: 1. Acute displaced right orbital floor blow-out fracture, as described above. 2. No acute intracranial abnormality. 3. Moderate chronic small-vessel ischemic changes with chronic encephalomalacia/gliosis in the anteroinferior right frontal lobe. 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 4. No acute cervical spine fracture or malalignment. Mild spondylotic changes. 5. 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 Reading Location: [facility] CC: Dr. Shannan Pressley MD; Dr. Elma Davey DO ~ Die Trouble Shooter: Signed [facility]09-19-2025 Radiology Diagnostic study note [facility] Imaging Services [address] [place], [place] [address] Sinus/Facial Bone MR#: [id number] Acct: [id number] Name: ANNE DUARTE GENA Rep #: [id number] : 1945 F 79 From: [facility] hood Hgih MD PCP: Dr. Shannan Pressley MD Status: REG ER Study:Sinus/Facial Bone Date of Exam: Exam# [id number] Ordering Dr: Ricardo Davey DO EXAM: CT BRAIN/HEAD; SINUS/FACIAL BONE; SPINE CERVICAL WITHOUT CONTRAST CLINICAL HISTORY: TRAUMA, fall COMPARISON: CT neck 10/27/2024. CT head 09/03/2023. TECHNIQUE: Noncontrast CT images of the head, maxillofacial structures, and cervical spine with multiplanar reconstructions. Dose reduction techniques were used including intermediate exposure control (AEC),iterative reconstruction technique, and/or mA and/or KV dose adjustments based on patient's size. FINDINGS: HEAD/FACE: No acute intracranial hemorrhage, extra-axial collection, mass effect or evidence of acute infarct. Mild generalized brain parenchymal volume loss, and moderate chronic small- vessel ischemic changes in the supratentorial white matter. Chronic encephalomalacia/gliosis in the anterior inferior right frontallobe. 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 Postoperative changes of prior right frontal craniotomy and bifrontal yuri holes, with metallic fixation to the lateral right orbital rim. No acute skull base or calvarial fracture. No mastoid effusions. Acute displaced right orbital floor blow-out fracture. Inferior herniation of right extraconal intraorbital fat, but no evidence for herniation or impingement of the extraocular musculature. Small amount of amorphous hemorrhage along the right orbital floor, no intraorbital emphysema. Hemorrhage within the right maxillary sinus. No additional acute maxillofacial fracture is seen. CERVICAL SPINE: No acute fracture or subluxation. Straightening of the cervical lordosis is likely positional and/or degenerative in nature. Multilevel spondylotic changes with varying degrees of disc space narrowing, small Schmorl's nodes and/or subchondral cysts, anterior osteophytosis, uncovertebral spurring and hypertrophic facet arthropathy. No prevertebral soft tissue swelling. Mild atherosclerotic vascular calcifications. Markedly enlarged heterogeneous goitrous thyroid involvingthe right thyroid lobe and isthmus with retrosternal extension, with associated mild leftward deviation of the tracheal airway. CT/Sinus/Facial Bone IMPRESSION: 1. Acute displaced right orbital floor blow-out fracture, as described above. 2. No acute intracranial abnormality. 3. Moderate chronic small-vessel ischemic changes with chronic encephalomalacia/gliosis in the anteroinferior right frontal lobe. 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 4. No acute cervical spine fracture or malalignment. Mild spondylotic changes. 5. 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 Reading Location: [facility] CC: Dr. Shannan Pressley MD; Dr. Elma Davey DO ~ Die Trouble Shooter: Signed [facility]09-19-2025 Discharge summary Author Elma Davey [facility] Note Date/Time January 28, 2025 10:06pm [facility] Medical Records Department [address] [place] [address] Emergency Department Summary 01/28/25 MR#: [id number] Acct: [id number] Name: ANNE DUARTE Rep #:[id number] : 1945 79 From: [facility] PCP: Dr. Shannan Pressley MD Status:REG ER Location: ED HPI History of Present Illness Chief Complaint: Fall Informant: patient Narrative Narrative: Patient is a 79-year-old female with history of ulcerative colitis, GERD, ruptured cerebral aneurysm status post coiling and arthritis presenting for evaluation after mechanical fall. Patient states he tripped on some uneven stones and fell. She tried to catch herself but did hit her head. She is not sure if she hit her head on the ground or her glasses hit her head. She sustained a laceration above her right eyebrow. Denies any associated loss of conscious. On any blood thinners. Did also hit her left knee mildly. Is unsure when her last tetanus was. Denies any associate numbness or tingling. Is otherwise been in her normal state of health. No other complaints or concerns at this time. Tetanus Immunization: Unknown [facility] Medical History Thyroid nodule Goiter Fatigue Mass of right side of neck Brain aneurysm Rash Restless legs Rheumatoid arthritis History of rheumatic fever Wears glasses Post-menopausal Back pain Migraine headache Gastric reflux Non-smoker Shortness of breath on exertion Leg cramps History of pain when walking GERD (gastroesophageal reflux disease) Arthritis Rectal bleeding Home Medications ?Medication ?Instructions ?Recorded ?Last Taken ?Type Omeprazole [Prilosec] 40 mg PO DAILY 10/21/14 Unkn own History cholecalciferol (vitamin D3) 25 25 mcg PO DAILY Unknown History mcg (1,000 unit) capsule conjugated estrogens 0.625 mg/gram 1.25 mg vaginal QWE EK 07/27/21 Unknown History vaginal cream (Premarin) methotrexate sodium 2.5 mg tablet See Rx Instructions .Route .COMPLEX 07/27/21 Unknown History nortriptyline 25 mg capsule 25 mg PO QHS 07/27/21 Unkn own History zinc 50 mg tablet 50 mg PO QODAY 07/27/21 Unkn own History latanoprost 0.005 % eye drops 1 drp EACH EYE QHS 08/20 Unknown History loratadine 10 mg tablet 10 mg PO DAILY 08/20/21 Unkn own History Lactobacillus acidophilus and 1 cap PO DAILY 10/31/22 Unknown History rhamnosus 15 billion cell capsule (Probiotic) losartan 50 mg tablet 50 mg PO QDAY 04/19/24 Unkno wn History Potassium 1 tab PO 3XW LOW K+ 07/01/24 Unknown History calcium carbonate (Calcium 600) 600 mg PO DAILY Unknown History cranberry extract 500 mg capsule 500 mg PO QDAY Unknown History docusate sodium 50 mg capsule 50 mg PO QDAY 07/01/24 U nknown History (Stool Softener) folic acid 1 mg tablet 2 mg PO BID 07/01/24 Unknown History tramadol 50 mg tablet 50 mg PO TID PRN 07/01/24 Un known History balsalazide 750 mg capsule 750 mg PO BID #180 caps 02/03 Unknown Rx tramadol 50 mg tablet 50 mg PO Q8H PRN pain 5 days #15 01/28/25 Unknown Rx tabs Allergy/AdvReac Type Severity Reaction Status Date / Time aspirin Allergy Unknown Verified 01/28/25 17:22 codeine Allergy Unknown Verified 01/28/25 17:22 Sulfa (Sulfonamide Allergy Unknown Verified 01/28/25 17:22 Antibiotics) Family History Father Cancer bladder Mother Heart disease Surgical History Hx of brain surgery Hx of total hip arthroplasty Hx of bladder repair surgery Hx of breast biopsy Hx of arthroscopic knee surgery Hx of arthroscopy of shoulder Hx of appendectomy Hx of hysterectomy Social History Smoking Status: Never smoker alcohol intake: never substance use type: does not use what type of physical activity do you participate in: none ROS ROS ED Constitutional Constitutional ED: Denies chills or fever(s) Eyes Eyes: Denies change in vision ENT ENT ED: Denies rhinorrhea or sore throat Cardiovascular Cardiovascular: Denies chest pain Respiratory/Chest Respiratory/Chest: Denies cough Gastrointestinal Gastrointestinal: Denies nausea or vomiting Musculoskeletal Musculoskeletal: Denies arthralgias or myalgias Integumentary Reports other Details: Laceration to the right eyebrow Neurologic Neurologic: Reports headache(s); Denies paresthesias or weakness Hematologic/Lymphatic Hematologic/Lymphatic: Denies easy bleeding or easy bruising EXAM Physical Exam Const Vital Signs: 01/28/25 17:22 01/28/25 17:57 01/28/25 18:00 Temperature 98.1 F Temperature Source Oral Pulse Rate 89 89 Respiratory Rate 18 16 Respiratory Effort Normal Respiratory Depth Normal Respiratory Pattern Normal Blood Pressure 173/126 H 176/116 H Blood Pressure Mean 141 136 Pulse Ox 96 97 Oxygen Delivery Method Room Air Room Air Room Air 01/28/25 20:19 Temperature Temperature Source Pulse Rate 94 Respiratory Rate 15 Respiratory Effort Respiratory Depth Respiratory Pattern Blood Pressure 170/101 H Blood Pressure Mean 124 Pulse Ox 96 Oxygen Delivery Method Room Air Positive well nourished and well developed General Appearance ED: well developed and NAD HEENT Reports TM's clear HEENT Narrative: No signs of basilar skull fracture. 4 cm full-thickness laceration over the right eyebrow. No tenderness over the orbital floor. No trismus. No epistaxis present. No nasal septal hematoma present. Tympanic Membrane ED: Yes TM's clear Eyes PERRL and EOMs intact bilaterally Neck full ROM General: Negative for tenderness Chest Wall inspection of chest normal and palpation of chest normal Resp normal respiratory effort and clear to auscultation bilaterally Cardio regular rhythm Rate: regular rate GI normal to inspection, nondistended, normoactive bowel sounds Extremity normal to inspection and full ROM Extremity Narrative: Normal extensor mechanism of the lower extremities bilaterally. No obvious deformity of the extremities. Mild tenderness palpation of the left anterior knee with associated overlying erythema consistent with an abrasion. No joint effusion present. General Extremety ED: Negative for deformity General Extremity: Negative for deformity Neuro oriented x3, CN's II-XII intact bilaterally, moves all extremities, no focal motor deficits and no sensory deficits noted Stephenson Coma Scale: document GCS findings Spontaneous Obeys Commands Oriented 15 Psych mental status grossly normal and thought process normal Skin Skin Narrative: 3 cm full-thickness laceration over the right eyebrow. PROC Procedures Lacerations Right eyebrow: Length: 1.57 in Depth: Sub Q Shape: Linear Prep: Sterile Conditions and Chlorhexadine Laceration repair: Lidocaine with epi, Local, Skin sutures (7) and Subcutaneous sutures (2) Irrigated (ml): 200 Number of Sutures/Davis: 9 Suture Information: Vicryl (4-0 subcutaneous), Ethilon (5-0 skin) and Simple Comment: Tolerated procedure well. Good approximation. No immediate complications MDM MDM MDM Narrative Medical decision making narrative: Patient presented for mechanical fall with subsequent head injury. Differential includes intracranial hemorrhage, skull fracture, facial fracture, cervical spine fracture. Physical exam not consistent with extraocular muscle entrapment. She has a normal neurologic exam. Laceration repair performed, see procedure note. Tetanus is updated. Patient given Tylenol for headache with improvement. CT imaging does show an acute displaced right orbital floor blowout fracture with no extraocular muscle involvement. No intracranial process or cervical spine fractures. Case discussed with ophthalmology on-call, Dr. Tilley, he states the patient is otherwise stable can follow-up outpatient with plastics and them. Counseled on avoiding blowing her nose or sneezing. I states does not need antibiotics. Patient given outpatient referral. She is comfortable with this plan of care. She does receive her regular prescription for tramadol which she only takes once a day. Canceled that she should take it 3 times a day as needed for pain will be given a refill. She does not want anything stronger for pain. Can also take Tylenol. Given return precautions. Discharged home in stable condition. Ambulated with a steady gait in the emergency room. Radiography Diagnostic Testing: Clinical Impression(s) from Imaging Studies Brain CT 01/28/25 19:18 IMPRESSION: 1. Acute displaced right orbital floor blow-out fracture, as described above. 2. No acute intracranial abnormality. 3. Moderate chronic small-vessel ischemic changes with chronic encephalomalacia/gliosis in the anteroinferior right frontal lobe. 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 4. No acute cervical spine fracture or malalignment. Mild spondylotic changes. 5. 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 Reading Location: [facility] Cervical Spine CT 01/28/25 19:18 IMPRESSION: 1. Acute displaced right orbital floor blow-out fracture, as described above. 2. No acute intracranial abnormality. 3. Moderate chronic small-vessel ischemic changes with chronic encephalomalacia/gliosis in the anteroinferior right frontal lobe. 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 4. No acute cervical spine fracture or malalignment. Mild spondylotic changes. 5. 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 Reading Location: [facility] Facial/Sinus 01/28/25 19:18 IMPRESSION: 1. Acute displaced right orbital floor blow-out fracture, as described above. 2. No acute intracranial abnormality. 3. Moderate chronic small-vessel ischemic changes with chronic encephalomalacia/gliosis in the anteroinferior right frontal lobe. 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 4. No acute cervical spine fracture or malalignment. Mild spondylotic changes. 5. 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 Reading Location: [facility] Discharge Plan Triage Chief Complaint: Fall ED Provider: Elma Davey Dx/Rx/DC Orders Clinical Impression: Complex laceration of right eyebrow, Closed blow-out fracture of right orbital floor, Contusion of knee, Closed head injury Instructions: ED Facial Fracture, ED Head Injury (Adult), ED FACIAL LACERATION Suture Tape Prescriptions: New tramadol 50 mg tablet 50 mg PO Q8H PRN (Reason: pain) 5 Days Qty: 15 0RF No Action zinc 50 mg tablet 50 mg PO QODAY Premarin 0.625 mg/gram cream 1.25 mg vaginal QWEEK Rx Instructions: off 5 days; repeat cycle cholecalciferol (vitamin D3) 25 mcg (1,000 unit) capsule 25 mcg PO DAILY nortriptyline 25 mg capsule 25 mg PO QHS Potassium 99 mg tablet 1 tab PO 3XW losartan 50 mg tablet 50 mg PO QDAY tramadol 50 mg tablet 50 mg PO TID PRN cranberry extract 500 mg capsule 500 mg PO QDAY Rx Instructions: administer with meals Stool Softener 50 mg capsule 50 mg PO QDAY Omeprazole [Prilosec] 40 MG capsule 40 mg PO DAILY methotrexate sodium 2.5 mg tablet See Rx Instructions .ROUTE .COMPLEX Rx Instructions: 6 tabs PO QWEEK-TAKES ON FRIDAY folic acid 1 mg tablet 2 mg PO BID latanoprost 0.005 % drops 1 drp EACH EYE QHS loratadine 10 mg Tablet 10 mg PO DAILY calcium carbonate [Calcium 600] 600 mg calcium (1,500 mg) tablet 600 mg PO DAILY Probiotic 15 billion cell Capsule 1 cap PO DAILY balsalazide 750 mg capsule 750 mg PO BID Qty: 180 3RF Primary Care Provider: Shannan Pressley Referrals: Shannan Pressley MD [Primary Care Provider, Family Practice] Fidel Tilley MD [Med Staff - Active Staff, Surgery] Sorin Jackson MD [Med Staff - Active Staff, Plastic Surgery] Activity Restrictions/Additional Instructions: Your sutures need to come out in 5 to 7 days. You have a fracture to your rightorbital floor (below your eye). Please follow-up with both design engineering specialist and plastic surgery for this. Take tramadol as needed for pain up to 3 times a day. You been given an additional week supply. Please let your prescribing doctor know that you received extra to not violate any pain contract. You may also take Tylenol as needed for pain. Try not to blow your nose or sneeze forcefully until cleared by the eye doctor. Print Language: [place] Disposition Disposition: Home, Self Care What to do if you have Problems For any increased pain, shortness of breath, bleeding, nausea or vomiting, chestpain, or any unexpected problems, contact your Primary Care Provider. Call [facility] ([phone]) or report to the closest Emergency Room. Call 911 if necessary. 01/28/252205 <Electronically signed by Elma Davey DO> Cosigner Signature (if applicable): CC: Dr. Shannan Pressley MD ~ Signed [facility] Work Phone: 1(379) 124-173206-30-2025 Evaluation note* Diagnosis Onset Date Resolution Status Admit Date Goiter acute November 08 8:14am Thyroid nodule acute November 08, 2024 8:14am Thyroid nodule acute December 07, 2024 1:12pm Fatigue acute December 27, 2 025 10:20am Mild cognitive impairment acute December 27, 2024 10:20am History of ruptured cerebral aneurysm resolved December 27 10:20am Thyroid nodule acute January 13, 2025 9:20am Fracture of right orbital floor acute February 01, 2025 1:17pm Complex laceration of right eyebrow inactive February 01, 2025 1:17pm Fracture of right orbital floor acute February 08, 2025 2:35pm [facility] Work Phone: 1(793) 560-272906-30-2025 Evaluation note* Diagnosis Onset Date Resolution Status Admit Date Goiter acute November 08 8:14am Thyroid nodule inactive November 08, 2024 8:14am Thyroid nodule inactive December 07, 2024 1:12pm Fatigue acute December 27, 025 10:20am Mild cognitive impairment acute December 27, 2024 10:20am History of ruptured cerebral aneurysm resolved December 27 10:20am Thyroid nodule inactive January 13, 2025 9:20am Fracture of right orbital floor acute February 01, 2025 1:17pm Complex laceration of right eyebrow inactive February 01, 2025 1:17pm Fracture of right orbital floor acute February 08, 2025 2:35pm History of lobectomy of thyroid acute March 07 8:58am [facility] Work Phone: 1(830) 502-402706-18-2025 Radiology Diagnostic study note [facility] Imaging Services [address] [place] [address] Soft Tissue Neck W/WO Contrast MR#: [id number] Acct: [id number] Name: ANNE DUARTE GENA Rep #: [id number] : 1945 F 78 From: Kole Felipe MD PCP: Dr. Shannan Pressley MD Status: REG CL I Study:Soft Tissue Neck W/WO Contrast Date of Exam: 10/27/24 Exam# [id number] Ordering Dr: Awa Mckeon MD PROCEDURE: SOFT [...] measured above. Negative for adenopathy. Reading Location: [facility] CC: Dr. Shannan Pressley MD; Dr. Davie Mckeon MD ~ Die Trouble Shooter: Signed [facility]05-22-2025 Evaluation note* Diagnosis Onset Date Resolution Status Admit Date Thyroid nodule acute September 30, 2024 1:27pm [facility] Work Phone: 1(563) 335-416805-22-2025 Evaluation note* Diagnosis Onset Date Resolution Status Admit Date Thyroid nodule acute September 30, 2024 1:27pm Goiter acute November 08 8:14am Thyroid nodule acute November 08, 2024 8:14am [facility] Work Phone: 1([phone]) 467-800805-22-2025 Evaluation note* Diagnosis Onset Date Resolution Status Admit Date Thyroid nodule acute September 30, 2024 1:27pm Goiter acute November 08 8:14am Thyroid nodule acute November 08, 2024 8:14am Thyroid nodule acute December 07, 2024 1:12pm [facility] Work Phone: 1(927) 385-980305-22-2025 Evaluation note* Diagnosis Onset Date Resolution Status Admit Date Thyroid nodule acute September 30, 2024 1:27pm Goiter acute November 08 8:14am Thyroid nodule acute November 08, 2024 8:14am Thyroid nodule acute December 07, 2024 1:12pm Abnormal gait acute December 10:20am Mild cognitive impairment acute December 27, 2024 10:20am Polyneuropathy acute December 10:20am Cerebrovascular disease chronic A ugust 2024 10:20am History of ruptured cerebral aneurysm resolved December 27 10:20am [facility] Work Phone: 1([phone]) 934-502005-22-2025 Evaluation note* Diagnosis Onset Date Resolution Status Admit Date Thyroid nodule acute September 30, 2024 1:27pm Goiter acute November 08 8:14am Thyroid nodule acute November 08, 2024 8:14am Thyroid nodule acute December 07, 2024 1:12pm Fatigue acute December 27, 025 10:20am Mild cognitive impairment acute December 27, 2024 10:20am History of ruptured cerebral aneurysm resolved December 27 10:20am [facility] Work Phone: 1(329) 172-124405-01-2025 Hospital Discharge instructionsAdditional Instructions Your sutures need to come out in 5 to 7 days. You have a fracture to your right orbital floor (below your eye). Please follow-up with both design engineering specialist and plastic surgery for this. Take tramadol as needed for pain up to 3 times a day. You been given an additional week supply. Please let your prescribing doctor know that you received extra to not violate any pain contract. You may also take Tylenol as needed for pain. Try not to blow your nose or sneeze forcefully until cleared by the eye doctor. [facility] Work Phone: 1(587) 591-344102-20-2025 Evaluation note* Diagnosis Onset Date Resolution Status Admit Date Abnormal gait acute July 012024 9:01am Mild cognitive impairment acute July 01, 2024 9:01am Polyneuropathy acute June 132024 9:01am Cerebrovascular disease chronic F ebruary 2024 9:01am History of ruptured cerebral aneurysm resolved July 01, 2 025 9:01am [facility] Work Phone: 1(944) 143-588202-20-2025 Evaluation note* Diagnosis Onset Date Resolution Status Admit Date Abnormal gait acute July 012024 9:01am Mild cognitive impairment acute July 01, 2024 9:01am Polyneuropathy acute June 132024 9:01am Cerebrovascular disease chronic F 2024 9:01am History of ruptured cerebral aneurysm resolved July 01, 2 025 9:01am Thyroid nodule acute September 30, 2024 1:27pm [facility] Work Phone: 1([phone]) 102-161512-09-2024 Evaluation note* Diagnosis Onset Date Resolution Status Admit Date Elevated CEA chronic April 2:39pm Ulcerative colitis chronic Decemb er 2023 2:39pm Abnormal gait acute July 012024 9:01am Mild cognitive impairment acute July 01, 2024 9:01am Polyneuropathy acute June 132024 9:01am Cerebrovascular disease chronic F 2024 9:01am History of ruptured cerebral aneurysm resolved July 01 025 9:01am [facility] Work Phone: 1(666) 236-553404-25-2024 Discharge summary Author Bryan Blackmon [facility] September 04, 2023 2:05am Note Date/Time September 03, 2023 11: 18pm [facility] Medical Records Department [address] [place] [address] Emergency Department Summary 09/03/23 MR#: [id number] Acct: [id number] Name: ANNE DUARTE GENA Rep #:[id number] : 1945 77 From: Bryan Blackmon DO [...] worsening headache she was broughtin for evaluation. [facility] Medical History Arthritis Back pain Brain aneurysm [...] 73.9 H Lymph % (Auto) 15.9 L Moody % (Auto) 9.1 Eos % (Auto) 0.3 [...] your Primary Care Provider. Call [facility] ([phone]) or report to the closest Emergency Room. Call 911 if necessary. 09/04/23 0205 <Electronically signed by Bryan Blackmon DO> Cosigner Signature (if applicable): CC: Dr. Kristina Richard MD ~ Signed [facility] Work Phone: 1(340) 748-268106-28-2023 History and physical note Author Stephen Carrizales [facility] November 06, 2022 7:24am Note Date/Time November 06, 2022 7:24 am [facility] Medical Records Department [address] [place] [address] History & Physical Exam 11/06/22723 MR#: [id number] Acct: [id number] Name: ANNE DUARTE GENA Rep #:[id number] : 1945 76 From: Stephen Carrizales DO PCP: Dr. Kristina Richard MD Status:PRE [facility] Location: [place] History and Physical Date of [...] and oriented x3 Quality Reporting Tobacco Screening ([facility] 138) Smoking Status: Never smoker Assessment and [...] Kristina Richard MD; Stephen Carrizales DO~ Signed [facility] Work Phone: 1(696) 487-133806-28-2023 Procedure [facility] 11-06-2022 Procedure [facility]06-28-2023 Procedure note [facility]06-28-2023 Procedure [facility] Discharge summary Author Davie Mckeon [facility] Note Date/Time February 25, 2025 9 :10am [facility] Medical Records Department [address] [place] [address] Instructions for Home/Discharge Instructions 02/25/25 0906 MR#: [id number] Acct: [id number] Name: ANNE DUARTE GENA Rep #:[id number] : 1945 79 From: Davie Fatima PCP: Dr. Shannan Pressley MD Status:ADM IN O Discharge Instructions DC O2, CPAP, BIPAP needs Home O2 Discharge instructions: No Dressing / Incision Discharge Activity: May Not Drive (While it remains difficult to check blind spots quickly) May shower in (days): 1 Ice area for (Minutes): 20 Lifting Restrictions: No lifting greater than 15 pounds for 2 weeks after surgery Dressing / Incision Call your doctor if your incision/area has: Continuous Slow Oozing, Sudden Increased Bleeding, Increased Pain/ Swelling, Increased Redness and Swelling at the incision site Call your doctor if you observe: Numbness or Tingling Remove Dressing in: 1 day (Please leave Steri-Strips intact until they fall off spontaneously or are taken off at your follow-up visit) Cleanse incision/area with: Soap & Water Follow Up Care Please Follow Up With: Davie Mckeon MD When: 7-10 days postop Test Results: Test results from this visit will be discussed in further detail at your follow- up appointment, if applicable. Discharge Plan Admission Admit Date/Time: 02/24/25 11:15 Primary Reason for Your Visit: Thyroid surgery Attending Provider: Davie Mckeon Primary Care Provider: Shannan Pressley Discharge Orders/Prescriptions Prescriptions: Continued zinc 50 mg tablet 50 mg PO QODAY cholecalciferol (vitamin D3) 25 mcg (1,000 unit) capsule 25 mcg PO DAILY nortriptyline 25 mg capsule 25 mg PO QHS Potassium 99 mg tablet 1 tab PO MOWEFR losartan 50 mg tablet 50 mg PO QDAY cranberry extract 500 mg capsule 500 mg PO QDAY Rx Instructions: administer with meals Stool Softener 50 mg capsule 50 mg PO QDAY ketoconazole 2 % cream 1 applic topical BID PRN (Reason: SKIN) Omeprazole [Prilosec] 40 MG capsule 40 mg PO DAILY methotrexate sodium 2.5 mg tablet 15 mg PO FR Rx Instructions: 6 tabs PO QWEEK-TAKES ON FRIDAY folic acid 1 mg tablet 2 mg PO DAILY loratadine 10 mg Tablet 10 mg PO DAILY calcium carbonate [Calcium 600] 600 mg calcium (1,500 mg) tablet 600 mg PO DAILY Probiotic 15 billion cell Capsule 1 cap PO DAILY timolol maleate 0.5 % drops 1 drp ophthalmic (eye) BID tramadol 50 mg tablet 50 mg PO Q8H PRN (Reason: pain) 5 Days Qty: 15 0RF balsalazide 750 mg capsule 750 mg PO BID Qty: 180 3RF Referrals / Follow Up: Shannan Pressley MD [Primary Care Provider, Family Practice] Disposition Disposition (needs filled in before D/C Order can be placed): Home, Self Care 02/25/25 0910<Electronically signed by Davie Mckeon MD>Davie Mckeon MD CC: Dr. Shannan Pressley MD ~ Signed [facility] Work Phone: Discharge summary Author Davie Mckeon [facility] Note Date/Time February 25, 2025 9 :19am [facility] Medical Records Department [address] [place] [address] Discharge Summary 02/25/25916 MR#: [id number] Acct: [id number] Name: ANNE DUARTE Rep #:[id number] : 1945 79 From: Davie Fatima PCP: Dr. Shannan Pressley MD Status:ADM IN [place] [facility] Providers Date of Admission: 02/24/25 Primary Care Physician: Shannan Pressley MD Reason For Visit: STATUS POST THYROID LOBECTOMY Medications at Discharge Home Medications Omeprazole [Prilosec] 40 mg PO DAILY 10/21/14 cholecalciferol (vitamin D3) 25 mcg (1,000 unit) capsule 25 mcg PO DAILY 07/27/21 methotrexate sodium 2.5 mg tablet 15 mg PO FR 07/27/21 nortriptyline 25 mg capsule 25 mg PO QHS 07/27/21 zinc 50 mg tablet 50 mg PO QODAY 07/27/21 loratadine 10 mg tablet 10 mg PO DAILY 08/20/21 Lactobacillus acidophilus and rhamnosus 15 billion cell capsule (Probiotic) 1 cap PO DAILY 10/31/22 losartan 50 mg tablet 50 mg PO QDAY 04/19/24 Potassium 1 tab PO MOWEFR LOW K+ 07/01/24 calcium carbonate (Calcium 600) 600 mg PO DAILY 07/01/24 cranberry extract 500 mg capsule 500 mg PO QDAY 07/01/24 docusate sodium 50 mg capsule (Stool Softener) 50 mg PO QDAY 07/01/24 folic acid 1 mg tablet 2 mg PO DAILY 07/01/24 balsalazide 750 mg capsule 750 mg PO BID colitis #180 caps 09/17/24 tramadol 50 mg tablet 50 mg PO Q8H PRN pain 5 days #15 tabs 01/28/25 ketoconazole 2 % topical cream 1 applic topical BID PRN SKIN 02/01/25 timolol maleate 0.5 % eye drops 1 drp ophthalmic (eye) BID 02/10/25 Hospital Course Operations - (Right thyroid lobectomy) Summary of Care Provided Hospital Course: Patient is 79-year-old female history multinodular goiter and compressive symptoms who underwent right thyroid lobectomy with intraoperative nerve monitoring on 02/24/2025. Although procedure proceeded in uncomplicated fashion there was some more bleeding associated with the removal of this large specimen likely owing to an element of venous hypertension. Additionally patient was labile with her blood pressures intraop and postoperatively was hypertensive. With this combination I elected to admit patient to an observational stay postoperatively. This observational stay proceeded uneventfully. Morning postoperative day 1 patient reports improved pain control and exam is reassuring. Therefore postoperative activity and wound care instructions were reviewed and patient was granted discharged home. Physical Exam Const alert, oriented x3 and no apparent distress General Appearance: cooperative and comfortable Neck Neck Narrative: Operative dressing is clean dry and intact, soft tissues remain soft. Patient denies any tenderness with palpation. Weight / BMI Weight Weight: 200 lb Body Mass Index (BMI) 37.8 D/C Instructions May shower in (days): 1 Ice area for (Minutes): 20 Call your doctor if your incision/area has: Continuous Slow Oozing, Sudden Increased Bleeding, Increased Pain/ Swelling, Increased Redness and Swelling at the incision site Call your doctor if you observe: Numbness or Tingling Cleanse incision/area with: Soap & Water DC O2, CPAP, BIPAP Needs Home O2 Discharge instructions: No Please Follow Up With: Davie Mckeon MD When: 7-10 days postop Meaningful Use Info Meaningful Use Meaningful Use Diagnoses (Choose all that apply): None applicable Discharge Plan Admission Admit Date/Time: 02/24/25 11:15 Primary Reason for Your Visit: Thyroid surgery Attending Provider: Davie Mckeon Primary Care Provider: Shannan Pressley Discharge Orders/Prescriptions Prescriptions: Continued zinc 50 mg tablet 50 mg PO QODAY cholecalciferol (vitamin D3) 25 mcg (1,000 unit) capsule 25 mcg PO DAILY nortriptyline 25 mg capsule 25 mg PO QHS Potassium 99 mg tablet 1 tab PO MOWEFR losartan 50 mg tablet 50 mg PO QDAY cranberry extract 500 mg capsule 500 mg PO QDAY Rx Instructions: administer with meals Stool Softener 50 mg capsule 50 mg PO QDAY ketoconazole 2 % cream 1 applic topical BID PRN (Reason: SKIN) Omeprazole [Prilosec] 40 MG capsule 40 mg PO DAILY methotrexate sodium 2.5 mg tablet 15 mg PO FR Rx Instructions: 6 tabs PO QWEEK-TAKES ON FRIDAY folic acid 1 mg tablet 2 mg PO DAILY loratadine 10 mg Tablet 10 mg PO DAILY calcium carbonate [Calcium 600] 600 mg calcium (1,500 mg) tablet 600 mg PO DAILY Probiotic 15 billion cell Capsule 1 cap PO DAILY timolol maleate 0.5 % drops 1 drp ophthalmic (eye) BID tramadol 50 mg tablet 50 mg PO Q8H PRN (Reason: pain) 5 Days Qty: 15 0RF balsalazide 750 mg capsule 750 mg PO BID Qty: 180 3RF Referrals / Follow Up: Shannan Pressley MD [Primary Care Provider, Family Practice] Disposition Disposition (needs filled in before D/C Order can be placed): Home, Self Care Charges/Coding Visit Charges Inpatient E&M: 60411 Disch Hosp 02/25/25 09 <Electronically signed by Davie Mckeon MD> Cosigner Signature (if applicable): CC: Dr. Shannan Pressley MD; Dr. Davie Mckeon MD~ Signed [facility] Work Phone: Evjwqation note* Diagnosis Onset Date Resolution Status Abdominal pain acute Rectal bleed acute [facility] Work Phone: evaluation note* Diagnosis Onset Date Resolution Status Abdominal pain acute Rectal bleed acute Ulcerative colitis acute [facility] Work Phone: evaluation note* Diagnosis Onset Date Resolution Status Ulcerative colitis acute Elevated CEA acute Ulcerative colitis acute [facility] Work Phone: Evaluation note* Diagnosis Onset Date Resolution Status Elevated CEA acute Ulcerative colitis acute [facility] Work Phone: Evaluation noteNo assessment information available [facility] Work Phone: Evaluation note* Diagnosis Onset Date Resolution Status Elevated CEA chronic Ulcerative colitis chronic [facility] Work Phone: History and physical note Author Stephen Friend [facility] November 06, 2022 7:24am Note Date/Time November 06, 2022 7:24 am [facility] Medical Records Department [address] [place] [address] History & Physical Exam 06/723 MR#: [id number] Acct: [id number] Name: ANNE DUARTE GENA Rep #:[id number] : 1945 76 From: Stephen Carrizales DO PCP: Dr. Kristina Richard MD Status:PRE [facility] Location: EN History and Physical Date of [...] and oriented x3 Quality Reporting Tobacco Screening ([facility] 138) Smoking Status: Never smoker Assessment and [...] Kristina Richard MD; Stephen Carrizales DO~ Signed [facility] Work Phone: Hospital Discharge instructions Additional Instructions [...] the ER should you have any [facility] Work Phone: Progress note Author Sorin Jackson [facility] Note Date/Time February 01, 2025 1:54pm [facility] [address] [place] [address] OFFICE VISIT Date of Service: 02/01/25 MR#: [id number] Acct: [id number] Name: ANNE DUARTE Rep #: [id number] : 1945 Provider: Dr. Lorne Jackson MD Age/Sex: 79/F Location: [facility] Status: Signed <Statement entered by Sorin Jackson MD - 02/01/25 16:15> Pt seen & evaluated w/ALTON. I personally interviewed & exam the pt. I was involved in all aspects of pt's orders, interpretation of results & treatment I reviewed the CT with the patient. 1 x 1.5 cm gap in orbital floor Assymptomatic on exam (no double vision, no enophthalmos or hypoglobus). Globe cleared by ophthalmology. Plan to follow closely. Discussed risks, benefits, and alternatives to non- operative management. She agreed to plan for monitoring (non-operative) at this time. f/u in 1 week Intake Vital Signs 01/28/25 17:22 02/01/25 13:37 Height 5 ft 5 ft 1 in Weight: 195 lb BMI 36.8 Comment pt ambulates with cane Intake Visit Reasons: ED FU Chief Complaint: ED follow up-fall on friday Accompanied by: Daughter Is patient in pain?: No Allergies aspirin Allergy (Verified 02/01/25 13:39) Hives codeine Allergy (Verified 02/01/25 13:39) Hives Sulfa (Sulfonamide Antibiotics) Allergy (Verified 02/01/25 13:39) Hives Medications ?Medication ?Instructions ?Recorded ?Confirmed ?Type Omeprazole [Prilosec] 40 mg PO DAILY 10/21/1401/11 History cholecalciferol (vitamin D3) 25 25 mcg PO DAILY 02/01/25 History mcg (1,000 unit) capsule conjugated estrogens 0.625 mg/gram 1.25 mg vaginal QWE EK 07/27/21 02/01/25 History vaginal cream (Premarin) methotrexate sodium 2.5 mg tablet See Rx Instructions .Route .COMPLEX 07/27/21 02/01/25 History nortriptyline 25 mg capsule 25 mg PO QHS 07/27/2101/11 History zinc 50 mg tablet 50 mg PO QODAY 07/27/2101/11 History latanoprost 0.005 % eye drops 1 drp EACH EYE QHS 08/2002/01/25 History loratadine 10 mg tablet 10 mg PO DAILY 08/20/2101/11 History Lactobacillus acidophilus and 1 cap PO DAILY 10/31/22 02/01/25 History rhamnosus 15 billion cell capsule (Probiotic) losartan 50 mg tablet 50 mg PO QDAY 04/19/2402/01 History Potassium 1 tab PO 3XW LOW K+ 07/01/24 02/01/25 History calcium carbonate (Calcium 600) 600 mg PO DAILY 02/01/25 History cranberry extract 500 mg capsule 500 mg PO QDAY 02/01/25 History docusate sodium 50 mg capsule 50 mg PO QDAY 07/01/24 0 02/01/25 History (Stool Softener) folic acid 1 mg tablet 2 mg PO BID 07/01/24 5 History tramadol 50 mg tablet 50 mg PO TID PRN 07/01/24 History balsalazide 750 mg capsule 750 mg PO BID #180 caps 02/0302/01/25 Rx tramadol 50 mg tablet 50 mg PO Q8H PRN pain 5 days #15 01/28/25 02/01/25 Rx tabs ketoconazole 2 % topical cream applic topical BID 01/1102/01/25 History Have you fallen in the past year?: Yes (fell on Friday, hit head and eye, sutures) [facility] Medical History (Updated 02/01/25 @ 14:28 by JENNIE Ramos) Fracture of right orbital floor Hypertension Thyroid nodule Goiter Fatigue Mass of right [...] Cancer bladder Mother Heart disease Social History (Updated 02/01/25 @ 13:37 by Millicent Hammonds) Smoking Status: Never smoker alcohol intake: never substance use type: does not use what type of physical activity do you participate in: none additional social history: pt denies vaping, denies edibles, denies marijuana use, denies aspirin and ibuprofen use, denies family history of blood clots/disorders HPI ED FU Details: Patient is a 79-year-old female with history of ulcerative colitis, GERD, ruptured cerebral aneurysm status post coiling and arthritis presenting for evaluation after mechanical fall while gardening on 01/28. She hit her head and the top of her glasses broke but she denied loss of consciousness. She's not on any blood thinners. She underwent trauma work up at the ED and was found to have right orbital floor fracture and her right forehead laceration was repaired. Brain CT and cervical spine CT was negative for acute injuries. She presents today with her daughter. She saw her eye doctor yesterday and states everything was ok. She notes double vision when looking at the TV and her glassess is still broken. She does not have double vision currently during her visit. She does have follow up with her PCP for suture removal this Friday. She denies facial numbness, tingling, nausea, vomiting. Daughter notes since her aneurysm years ago she's lost peripheral vision on both sides right worse than left. ROS Details General: Denies fever, chills HEENT: Denies headaches, sore throat Cardio: Denies chest pain, leg edema Pulmonary: Denies shortness of pain, cough, wheezing GI: Denies nausea, vomiting, diarrhea General General: Yes good health and fatigue; No fever(s) or weight loss HENMT HENMT: No rhinitis, sore throat/mouth sore, nasal congestion, contacts or glaucoma Endo Endocrine: No thyroid disease, polydipsia, heat intolerance, cold intolerance, hepatitis or excessive urine Skin Skin: Yes Bleeding and bruising; No changing moles or suspicious lesion Musc Musculoskeletal: No joint pain, joint stiffness, muscle weakness, back pain, osteoarthritis or Muscle aches/ myalgia Neuro Neurological: Yes headache(s), No lightheadedness and No numbness Cardio Cardiovascular: Yes fatigue; No chest pain, pacemaker or shortness of breat with exertion Psych Psychiatric: No depression, claustrophobia or anxiety Resp Respiratory: No spitting up, shortness of breath, sleep apnea, asthma, emphysema, TB, Cough or Smoker Gastro Gastrointestinal: No diarrhea, constipation, blood in stool, nausea, vomiting or abdominal bloating Vance Hematologic: No anemia, No bleeding and No abnormal bleeding Genitourinary: No urinary frequency, blood in urine or incontinence Exam Details Alert and oriented in no acute distress. Walking cane in room Ecchymosis noted on right forehead and cheek. Gaze is midline and conjugate, EOMI. No hypoglobus and enophthalmos. No nystagmus noted. Sensation to light touch of the face is intact Right forehead sutures are clean, dry, intact. Not infected Coding Level of Care Code Off vis,new,level 3 Diagnoses Fracture of right orbital floor S02.31XA Complex laceration of right eyebrow S01.111A Assessment and Plan (No Qualifiers) Assessment and Plan (1) Fracture of right orbital floor: Status: Acute (2) Complex laceration of right eyebrow: Status: Acute Plan Dr. Jackson and I evaluated the patient together. CT sinus/face were reviewed in detail together. Given patient has no double vision and does not demonstrate hypoglobus and enophthalmos on exam surgery is not indicated at this time as risks outweight benefits. We will follow up in 1 week, then again in 6 weeks if she continues to do well. Clinical Quality Measures Falls Risk Screening/Assistive Devices Does patient use assistive devices: cane Have you fallen in the past year?: Yes (fell on Friday, hit head and eye, sutures) 02/01/25 1615 <Electronically signed by Sorin Jackson MD> Date _ Sorin Jackson MD 02/01/25 1430<Electronically signed by James SCHNEIDER> Cosigner Signature: Date (if applicable) James Escobedo CC: ~ [facility] Work Phone: Reason for referral (narrative)No reason for referral information availableWMarietta Osteopathic [facility] Work Phone: Summary Purpose Family History Relationship Condition Age at Onset Recorded Date/T catalina father Malignant neoplasm Unknown mother Cardiac disease Unknown Advance Directives Advance Directive Response Recorded Date/ Time Living Will No July 12, 2021 3:09pm Power of Marble Machine Operator No July 12 3:09pm Advance Directive Response Recorded Date/ Time Living Will No August 20, 2021 9:26am Power of Marble Machine Operator No August 20 9:26am Advance Directive Response Recorded Date/ Time Living Will No November 19, 2021 4:55pm Power of Marble Machine Operator No November 19 4:55pm Advance Directive Response Recorded Date/ Time Living Will No November 19, 2021 3:55pm Power of Marble Machine Operator No November 19 3:55pm Advance Directive Response Recorded Date/ Time Living Will No October 31, 2022 1:07pm Power of Marble Machine Operator No October 31 1:07pm Advance Directive Response Recorded Date/ Time Name of Medical Power of Marble Machine Operator Sophia vidal September 03, 2023 10:59pm Living Will No September 03, 2023 10:59pm Power of Marble Machine Operator Yes September 02 10:59pm Advance Directive Response Recorded Date/ Time Living Will No October 31, 2022 1:07pm Do you have a Healthcare Power of Marble Machine Operator? No October 31, 2022 1:07pm Advance Directive Response Recorded Date/ Time Do you have a Healthcare Power of Marble Machine Operator? No January 28, 2025 6:00pm Advance Directive Response Recorded Date/ Time Do you have a Healthcare Power of Marble Machine Operator? No February 24, 2025 2:30pm Do you have a Healthcare Power of Marble Machine Operator? No January 28, 2025 6:00pm Chief Complaint and Reason for Visit Chief [...] bleed Ulcerative colitis Chief Complaint ARTHRITIS/PAIN - RATOPRINTER Y PCP SCREENING HEMORRHOIDS RECTAL BLEEDING 2 [...] bruary 2024 9:01am Chief Complaint Admit Date STANDING ORDER [...] Fe bru2024 9:01am Chief Complaint Admit Date CEREBRAL ANEURYSM [...] 01, 2024 9:01am Cerebrovascular disease July 01 9:01am History of ruptured cerebral aneurysm Fe banner 2024 9:01am Thyroid nodule September 30, 2024 [...] 2024 10 :20am Discuss thyroid surgery/update H&P Amanda de los santos 2024 9:20am Reason for Visit Admit Date Thyroid nodule September 30, 2024 1:27p m Goiter November 08, 2024 8:14 am Thyroid nodule November 08, 2024 8:14 am Thyroid nodule December 07, 2024 1:12 pm Fatigue December 27, 2024 10 :20am Mild cognitive impairment December 27, 2 025 10:20am History of ruptured cerebral aneurysm [place] 2024 10:20am Chief Complaint Admit Date right neck mass October 27, 2024 3:[address] & DISCUSS SX November 08, 2024 8 :14am SCREENING November 17, 2024 11:52 am THYROID FNA December 07, 2024 1:12 pm L THYROID NODULE December 07, 2024 2:51 pm 6 M FU December 27, 2024 10 :20am Discuss thyroid surgery/update H&P Amanda de los santos 2024 9:20am fall January 28, 2025 5:19pm S/O- PAIN- COPY PCP January 31, 2025 4:42pm ED FU February 01, 2025 1:17pm 1 week follow up February 08, 2025 2:35pm Reason for Visit Admit Date Goiter November 08, 2024 8:14 am Thyroid nodule November 08, 2024 8:14 am Thyroid nodule December 07, 2024 1:12 pm Fatigue December 27, 2024 10 :20am Mild cognitive impairment December 27, 2 025 10:20am History of ruptured cerebral aneurysm [place] 2024 10:20am Thyroid nodule January 13, 2025 9:20am Fracture of right orbital floor Septembe r 2024 1:17pm Complex laceration of right eyebrow Sept ember 2024 1:17pm Fracture of right orbital floor Septembe r 2024 2:35pm Chief Complaint Admit Date REVIEW CT & DISCUSS SX November 08, 2024 8 :14am SCREENING November 17, 2024 11:52 am THYROID FNA December 07, 2024 1:12 pm L THYROID NODULE December 07, 2024 2:51 pm 6 M FU December 27, 2024 10 :20am Discuss thyroid surgery/update H&P Septe mber 2024 9:20am fall January 28, 2025 5:19pm S/O- PAIN- COPY PCP January 31, 2025 4:42pm ED FU February 01, 2025 1:17pm 1 week follow up February 08, 2025 2:35pm Right Thyroid lobectomy w/isthmus & IONM February 24, 2025 7:15am STATUS POST THYROID LOBECTOMY February 242024 11:15am STATUS POST THYROID LOBECTOMY February 252024 9:17am Thyroid lobectomy DOS 02/24 8:58am Reason for Visit Admit Date Goiter November 08, 2024 8:14 am Thyroid nodule November 08, 2024 8:14 am Thyroid nodule December 07, 2024 1:12 pm Fatigue December 27, 2024 10 :20am Mild cognitive impairment December 27, 2 025 10:20am History of ruptured cerebral aneurysm [place] 2024 10:20am Thyroid nodule January 13, 2025 9:20am Fracture of right orbital floor Sept[place] r 2024 1:17pm [facility] Fracture of right orbital floor Septem[place] r 2024 2:35pm History of lobectomy of thyroid March 07, 2025 8:58am Additional Source Comments INFORMATION SOURCE (unrecogn ized section and content) DATE CREATED AUTHOR 12/04/2017 [facility] DATE CREATED AUTHOR AUTHOR'S ORGANIZ ATION 03/10/2025 [facility] Goals (unrecognized section and content) [...] Provider, Referrin g Provider Active Nisa Frederick RECEPTION CLERK, RECEPTION CLERK-C Attending Provider Active Team Status: Inactive Member Role Status Dates Dr. Kristina Richard MD Primary Care Provider Active Nisa Frederick RECEPTION CLERK, RECEPTION CLERK-C Attending Provider, Referrin g Provider Active Team [...] Status: Active Member Role Status Dates Shannan Preslsey MD Primary Care Provider Active St art: [...] Status: Inactive Member Role/Relationship Status Dates Dr. Kristnia Richard MD Referring Provider Active Start: December [...] January 13, 2025 End: January 13, 2025 Team Status: Active Member Role/Relationship Status Dates Shannan Pressley MD Primary care physician Active Team Status: Inactive Member Role/Relationship Status Sandrine Pressley MD Primary care physician Active S tart: October 27, 2024 End: October 27, 2024 Dr. Davie Mckeon MD Attending physician Active Start: October 27, 2024 End: October 27, 2024 Dr. Davie Mckeon MD Referring Provider Active Start: October 27, 2024 End: October 27, 2024 Team Status: Inactive Member Role/Relationship Status Sandrine Pressley MD Primary care physician Active S tart: November 01, 2024 End: November 01, 2024 Dr. Sanjana Thomas MD Attending physician Active Start: November 01, 2024 End: November 01, 2024 Dr. Sanjana Thomas MD Referring Provider Active Start: November 01, 2024 End: November 01, 2024 Team Status: Inactive Member Role/Relationship Status Dates Shannan Pressley MD Primary care physician Active S tart: November 08, 2024 End: November 08, 2024 Shannan Pressley MD Referring Provider Active Start : November 08, 2024 End: November 08, 2024 Dr. Davie Mckeon MD Attending physician Active Start: November 08, 2024 End: November 08, 2024 Team Status: Inactive Member Role/Relationship Status Dates Dr. Kristina Richard MD Attending physician Active Start: November 17, 2024 End: November 17, 2024 Dr. Kristina Richard MD Referring Provider Active Start: November 17, 2024 End: November 17, 2024 Shannan Pressley MD Primary care physician Active S tart: November 17, 2024 End: November 17, 2024 Team Status: Inactive Member Role/Relationship Status Dates Shannan Pressley MD Primary care physician Active S tart: December 07, 2024 End: December 07, 2024 Shannan Pressley MD Referring Provider Active Start : December 07, 2024 End: December 07, 2024 Dr. Davie Mckeon MD Attending physician Active Start: December 07, 2024 End: December 07, 2024 Team Status: Inactive Member Role/Relationship Status Dates Shannan Pressley MD Primary care physician Active S tart: December 07, 2024 End: December 07, 2024 Dr. Davie Mckeon MD Attending physician Active Start: December 07, 2024 End: December 07, 2024 Dr. Davie Mckeon MD Referring Provider Active Start: December 07, 2024 End: December 07, 2024 Team Status: Inactive Member Role/Relationship Status Dates Dr. Kristina Richard MD Referring Provider Active Start: December 27, 2024 End: December 27, 2024 Dr. Deangelo White MD Attending physician Active Start: December 27, 2024 End: December 27, 2024 Shannan Pressley MD Primary care physician Active S tart: December 27, 2024 End: December 27, 2024 Team Status: Inactive Member Role/Relationship Status Dates Shannan Pressley MD Primary care physician Active S tart: January 13, 2025 End: January 13, 2025 Shannan Pressley MD Referring Provider Active Start : January 13, 2025 End: January 13, 2025 Dr. Davie Mckeon MD Attending physician Active Start: January 13, 2025 End: January 13, 2025 Team Status: Inactive Member Role/Relationship Status Sandrine Pressley MD Primary care physician Active S tart: January 28, 2025 End: January 28, 2025 Dr. Elma Davey DO Attending physician Active Start: January 28, 2025 End: January 28, 2025 Dr. Elma Davey DO Emergency Depart ent Physician Active Start: January 28, 2025 End: January 28, 2025 Team Status: Active Member Role/Relationship Status Sandrine Pressley MD Primary care physician Active S tart: January 31, 2025 Dr. Sanjana Thomas MD Attending physician Active Start: January 31, 2025 Dr. Sanjana Thomas MD Referring Provider Active Start: January 31, 2025 Team Status: Inactive Member Role/Relationship Status Sandrine Pressley MD Primary care physician Active S tart: February 01, 2025 End: February 01, 2025 Shannan Pressley MD Referring Provider Active Start : February 01, 2025 End: February 01, 2025 Dr. Sorin Jackson MD Attending physician Active Start: February 01, 2025 End: February 01, 2025 Team Status: Inactive Member Role/Relationship Status Sandrine Pressley MD Primary care physician Active S tart: February 08, 2025 End: February 08, 2025 Shannan Pressley MD Referring Provider Active Start : February 08, 2025 End: February 08, 2025 Dr. Sorin Jackson MD Attending physician Active Start: February 08, 2025 End: February 08, 2025 Team Status: Inactive Member Role/Relationship Status Sandrine Pressley MD Primary care physician Active S tart: November 08, 2024 End: November 08, 2024 Shannan Pressley MD Referring Provider Active Start : November 08, 2024 End: November 08, 2024 Dr. Davie Mckeon MD Attending physician Active Start: November 08, 2024 End: November 08, 2024 Team Status: Inactive Member Role/Relationship Status Dates Dr. Kristina Richard MD Attending physician Active Start: November 17, 2024 End: November 17, 2024 Dr. Kristina Richard MD Referring Provider Active Start: November 17, 2024 End: November 17, 2024 Shannan Pressley MD Primary care physician Active S tart: November 17, 2024 End: November 17, 2024 Team Status: Inactive Member Role/Relationship Status Dates Sahnnan Pressley MD Primary care physician Active S tart: December 07, 2024 End: December 07, 2024 Shannan Pressley MD Referring Provider Active Start : December 07, 2024 End: December 07, 2024 Dr. Davie Mckeon MD Attending physician Active Start: December 07, 2024 End: December 07, 2024 Team Status: Inactive Member Role/Relationship Status Dates Shannan Pressley MD Primary care physician Active S tart: December 07, 2024 End: December 07, 2024 Dr. Davie Mckeon MD Attending physician Active Start: December 07, 2024 End: December 07, 2024 Dr. Davie Mckeon MD Referring Provider Active Start: December 07, 2024 End: December 07, 2024 Team Status: Inactive Member Role/Relationship Status Dates Dr. Kristina Richard MD Referring Provider Active Start: December 27, 2024 End: December 27, 2024 Dr. Deangelo White MD Attending physician Active Start: December 27, 2024 End: December 27, 2024 Shannan Pressley MD Primary care physician Active S tart: December 27, 2024 End: December 27, 2024 Team Status: Inactive Member Role/Relationship Status Dates Shannan Pressley MD Primary care physician Active S tart: January 13, 2025 End: January 13, 2025 Shannan Pressley MD Referring Provider Active Start : January 13, 2025 End: January 13, 2025 Dr. Davie Mckeon MD Attending physician Active Start: January 13, 2025 End: January 13, 2025 Team Status: Inactive Member Role/Relationship Status Dates Shannan Pressley MD Primary care physician Active S tart: January 28, 2025 End: January 28, 2025 Dr. Elma Davey DO Attending physician Active Start: January 28, 2025 End: January 28, 2025 Dr. Elma Davey DO Emergency Departm ent Physician Active Start: January 28, 2025 End: January 28, 2025 Team Status: Inactive Member Role/Relationship Status Sandrine Pressley MD Primary care physician Active S tart: January 31, 2025 End: January 31, 2025 Dr. Sanjana Thomas MD Attending physician Active Start: January 31, 2025 End: January 31, 2025 Dr. Sanjana Thomas MD Referring Provider Active Start: January 31, 2025 End: January 31, 2025 Team Status: Inactive Member Role/Relationship Status Sandrine Pressley MD Primary care physician Active S tart: February 01, 2025 End: February 01, 2025 Shannan Pressley MD Referring Provider Active Start : February 01, 2025 End: February 01, 2025 Dr. Sorin Jackson MD Attending physician Active Start: February 01, 2025 End: February 01, 2025 Team Status: Inactive Member Role/Relationship Status Sandrine Pressley MD Primary care physician Active S tart: February 08, 2025 End: February 08, 2025 Shannan Pressley MD Referring Provider Active Start : February 08, 2025 End: February 08, 2025 Dr. Sorin Jackson MD Attending physician Active Start: February 08, 2025 End: February 08, 2025 Team Status: Active Member Role/Relationship Status Sandrine Pressley MD Primary care physician Active S tart: February 24, 2025 Dr. Davie Mckeon MD Attending physician Active Start: February 24, 2025 Dr. Davie Mckeon MD Referring Provider Active Start: February 24, 2025 Dr. Davie Mckeon MD Nurse Practitioner Active Start: February 24, 2025 Team Status: Inactive Member Role/Relationship Status Sandrine Pressley MD Primary care physician Active S tart: February 24, 2025 End: February 25, 2025 Dr. Davie Mckeon MD Admitting physician Active Start: February 24, 2025 End: February 25, 2025 Dr. Davie Mckeon MD Attending physician Active Start: February 24, 2025 End: February 25, 2025 Dr. Davie Mckeon MD Referring Provider Active Start: February 24, 2025 End: February 25, 2025 Team Status: Active Member Role/Relationship Status Dates Shannan Pressley MD Primary care physician Active S tart: February 25, 2025 Dr. Davie Mckeon MD Admitting physician Active Start: February 25, 2025 Dr. Davie Mckeon MD Attending physician Active Start: February 25, 2025 Dr. Davie Mckeon MD Referring Provider Active Start: February 25, 2025 Dr. Davie Mckeon MD Nurse Practitioner Active Start: February 25, 2025 Team Status: Inactive Member Role/Relationship Status Dates Shannan Pressley MD Primary care physician Active S tart: March 07, 2025 End: March 07, 2025 Shannan Pressley MD Referring Provider Active Start : March 07, 2025 End: March 07, 2025 Dr. Davie Mckeon MD Attending physician Active Start: March 07, 2025 End: March 07, 2025 FOR RECORDS PERTAINING TO PATIENTS WHO [...] BE BASED ON THE PRIMARY CLINICAL RECORDS. [facility] [employer] [facility]. provides no warranty or guarantee of the accuracy or completeness of information in this document.
== END | disposition home or self-care (01) ==
LOC: LABSPEC 16:19
PROVIDERS: PCP Family Medicine; Visit Provider Family Medicine
DX: N39.0 Urinary tract infection, site not specified (principal)
CPT/HCPCS: 87086; 87088

== ENCOUNTER → 2025-04-01 | Outpatient (CLI) | payer MEDICARE, SELFPAY ==
--- NOTE | 2025-04-01 13:50 | US_ITS ---
PROCEDURE: EXT NON VASC LIMITED/SOFT TISS 04/01/2025 REASON FOR EXAM: CYST ON LEFT HAND Palpable lump in the palm of the left hand in the region of the base of the thumb (thenar TECHNIQUE: Procedure Code: [id number] Modality: US Procedure: EXT NON VASC LIMITED/SOFT TISS COMPARISON: None FINDINGS: The palpable abnormality corresponds to a 1.3 cm x 1.1 cm x 0.7 cm complex cyst. Aspiration recommended. US/Ext Non Vasc Limited/Soft Tiss IMPRESSION: The palpable abnormality corresponds to a 1.3 cm 1.1 cm x 0.7 cm complex cyst. Aspiration is recommended. Reading Location: [facility]-
[2025-04-01 16:57] LABS: Free T3 3.3 pg/mL (2.18-3.98)
== END | disposition home or self-care (01) ==
PROVIDERS: Surgery; PCP Family Medicine; Referring Provider Orthopaedic Surgery Sports Medicine; Visit Provider Orthopaedic Surgery Sports Medicine
DX: E04.9 Nontoxic goiter, unspecified (principal); M67.442 Ganglion, left hand; Z90.09 Acquired absence of other part of head and neck
CPT/HCPCS: 36415; 76882; 84439; 84443; 84481

== ENCOUNTER → 2025-04-19 | Outpatient (CLI) | payer MEDICARE, SELFPAY ==
--- NOTE | 2025-04-19 09:55 | US_ITS ---
PROCEDURE: EXT NON VASC LIMITED/SOFT TISS 04/19/2025 REASON FOR EXAM: L THUMB CYST Planned drainage. TECHNIQUE: Procedure Code: USEXTSOFTLIM Modality: US Procedure: EXT NON VASC LIMITED/SOFT TISS. Targeted imaging was obtained. COMPARISON: April 01, 2025. FINDINGS: The previously seen palpable abnormality corresponds to a cystic lesion is not seen at this time. US/Ext Non Vasc Limited/Soft Tiss IMPRESSION: The previously seen abnormality is not seen at this time. Reading Location: [place] [id number]
== END | disposition home or self-care (01) ==
LOC: US 09:50
PROVIDERS: PCP Family Medicine; Referring Provider Orthopaedic Surgery Sports Medicine; Visit Provider Orthopaedic Surgery Sports Medicine
DX: M67.442 Ganglion, left hand (principal)
CPT/HCPCS: 76882

== ENCOUNTER → 2025-04-26 | Outpatient (CLI) | payer MEDICARE, SELFPAY ==
[2025-04-26 15:20] LABS: Hematocrit 41.1 % (37-47); Hemoglobin 12.6 g/dL (12.0-15.0); Immature Granulocytes Count 0.010 X10^3/uL (0.0-0.0); Mean Corp Hgb Conc 30.7 g/dL (32-36); Mean Corpuscular Volume 98.6 fL (81-99); Mean Platelet Vol. 10.4 fl (6.2-12.0); NRBC Flagged by Analyzer 0 % (0-5); Platelet Count 253 K/mm3 (150-450); RBC Distribution Width CV 15.3 % (11.6-14.6); RBC Distribution Width SD 55.5 fl (35.1-43.9); Red Blood Count 4.17 M/mm3 (4.2-5.4); White Blood Count 3.4 K/mm3 (4.4-11.0)
[2025-04-26 15:48] LABS: AST(SGOT) 20 U/L (<=31); Alanine Aminotransfer ALT/SGPT 13 U/L (<=34); Albumin, Serum 3.8 g/dL (3.4-4.8); Alkaline Phosphatase 70 U/L (35-104); Anion Gap 12 (5-15); BUN 17 mg/dL (4-19); BUN/Creat Ratio 21.6 RATIO (10-20); Calcium,Total 9.3 mg/dL (7.6-11.0); Carbon Dioxide 29.9 mmol/L (21.0-32.0); Chloride 103 mmol/L (98-108); Globulin 2.7 g/dL (2.2-4.2); Glucose 79 mg/dL (70-99); Potassium 3.8 mmol/L (3.3-5.1)
== END | disposition home or self-care (01) ==
LOC: MTLAB 10:51
PROVIDERS: PCP Family Medicine; Referring Provider Internal Medicine Rheumatology; Visit Provider Internal Medicine Rheumatology
DX: L40.59 Other psoriatic arthropathy (principal); Z79.899 Other long term (current) drug therapy
CPT/HCPCS: 36415; 80053; 85025